=== PATIENT | female | born 1945 | race Caucasian/White ===

== ENCOUNTER 2020-02-18 06:39 | Outpatient (REF) | payer MEDICARE, SELFPAY ==
[2020-02-18 07:51] LABS: Glucose Urine UA NEG (NEG); Leukocyte Esterase Urine TRACE (NEG); Nitrite Urine NEG (NEG); Specific Gravity - Urine 1.025 (1.005-1.025); Urine Blood NEG (NEG); Urine Ketones NEG (NEG); Urine Protein NEG (NEG-TRACE)
[2020-02-18 07:55] LABS: Appearance Urine CLEAR; Color Urine YELLOW
[2020-02-18 08:13] LABS: Bacteria Urine TRACE /LPF; RBC Urine 0-2 /HPF (0); Squamous Epithelial Cell Urine 1+ /LPF
== END 2020-02-18 06:40 | disposition home or self-care (01) ==
LOC: HO.LAB 06:39
PROVIDERS: PCP Internal Medicine; Visit Provider Internal Medicine
DX: N30.00 Acute cystitis without hematuria (principal)
CPT/HCPCS: 81001; 87086

== ENCOUNTER 2020-02-23 06:41 | Outpatient (REF) | payer MEDICARE, SELFPAY ==
[2020-02-23 08:20] LABS: Glucose Urine UA NEG (NEG); Leukocyte Esterase Urine 1+ (NEG); Nitrite Urine NEG (NEG); Specific Gravity - Urine 1.015 (1.005-1.025); Urine Blood NEG (NEG); Urine Ketones NEG (NEG); Urine Protein NEG (NEG-TRACE)
[2020-02-23 08:29] LABS: Color Urine YELLOW
[2020-02-23 08:30] LABS: Appearance Urine HAZY
[2020-02-23 08:53] LABS: Bacteria Urine 1+ /LPF; Mucus Urine 2+ /LPF; RBC Urine 0 /HPF (0); Renal Epithelial Cells Urine 1+ /LPF; Squamous Epithelial Cell Urine 2+ /LPF
== END 2020-02-23 06:42 | disposition home or self-care (01) ==
LOC: HO.LAB 06:41
PROVIDERS: PCP Internal Medicine; Visit Provider Internal Medicine
DX: N30.00 Acute cystitis without hematuria (principal)
CPT/HCPCS: 81001; 81003; 87086

== ENCOUNTER 2020-05-02 06:21 | Day surgery (SDC) | payer MEDICARE, SELFPAY ==
[2020-04-27 09:49] VITALS: BMI 39.1
--- NOTE | 2020-04-29 09:31 | P.CONAN_ITS ---
Documented by User: Taylor Peacock 04/29/20 09:34 HPI - Anesthesia Eval Consult details Narrative: 74yo F for Upper Endoscopy [facility], [facility] Past Medical History Medical History Elevated cholesterol Fatty liver GERD (gastroesophageal reflux disease) History of Ennis's esophagus HTN (hypertension) Hypothyroid Obesity Surgical History Surgical History History of esophagogastroduodenoscopy (EGD) History of Yan fundoplication Hx of brain surgery Hx of colonoscopy Social History Social History Smoking Status: Former smoker Use of substances other than those prescribed or required for medical reasons: No Advance Directives: No Advance Directives Information Provided: No Advance Directives on File: No Meds Allergies Allergy/AdvReac Type Severity Reaction Status Date / Time No Known Allergies Allergy Verified 04/27/20 09:47 [No Known Allergies*] Home Medications Medication Instructions Recorded Confirmed Type atorvastatin 1 tab PO DAILY 04/27/20 04/27/20 History cholecalciferol (vitamin D3) 50 mcg PO DAILY 04/27/20 04/27/20 History [Vitamin D3] levothyroxine 1 tab PO QAM 04/27/20 04/27/20 History omeprazole 1 cap PO DAILY 04/27/20 05/02/20 History ursodiol 1,000 mg PO DAILY 04/27/20 04/27/20 History valsartan-hydrochlorothiazide 1 tab PO DAILY 04/27/20 04/27/20 History Exam Exam Date and Time: April 29, 2020 0931 Height,Weight and Vital Signs: Height 5 ft 5 in Weight 106.594 kg Assessment and Plan Assessment Anesthesia Assessment: Chart Reviewed Documented by User: Oscar Ramirez 05/02/20 07:15 [facility] Past Medical History Medical History Elevated cholesterol Fatty liver GERD (gastroesophageal reflux disease) History of Ennis's esophagus HTN (hypertension) Hypothyroid Obesity Surgical History Surgical History History of esophagogastroduodenoscopy (EGD) History of Yan fundoplication Hx of brain surgery Hx of colonoscopy Social History Social History Smoking Status: Former smoker Use of substances other than those prescribed or required for medical reasons: No Advance Directives: No Advance Directives Information Provided: No Advance Directives on File: No Meds Allergies Allergy/AdvReac Type Severity Reaction Status Date / Time No Known Allergies Allergy Verified 04/27/20 09:47 [No Known Allergies*] Home Medications Medication Instructions Recorded Confirmed Type atorvastatin 1 tab PO DAILY 04/27/20 04/27/20 History cholecalciferol (vitamin D3) 50 mcg PO DAILY 04/27/20 04/27/20 History [Vitamin D3] levothyroxine 1 tab PO QAM 04/27/20 04/27/20 History omeprazole 1 cap PO DAILY 04/27/20 05/02/20 History ursodiol 1,000 mg PO DAILY 04/27/20 04/27/20 History valsartan-hydrochlorothiazide 1 tab PO DAILY 04/27/20 04/27/20 History Exam Airway Mallampati Class: II TM Dist: >3cm Neck ROM: Full Denture: Upper
[2020-05-02 06:54] VITALS: BP 140/71; PULSE 87; RESP 18; TEMP 35.9; O2SAT 98
[2020-05-02] MEDS: Lactated Ringers 1,000 ML 100 ML IVCONT (07:20)
[2020-05-02 08:09] VITALS: BP 94/41; PULSE 82; RESP 16; TEMP 37.4; O2SAT 98
--- NOTE | 2020-05-02 08:09 | PM.OP ---
Brief Operative Note Date of Service: 05/02/20 Pre-op diagnosis: Ennis's Esophagus Post-op diagnosis: other (Same. Hiatal hernia) Procedure: EGD with biopsy Surgeon: Gilberto Hernandez Anesthesia: MAC Estimated blood loss (mL): 2.0 Pathology: other (A. EG Junction at 30cm) Condition: stable Disposition: PACU
[2020-05-02 08:24] VITALS: BP 137/72; PULSE 82; RESP 16; TEMP 36.9; O2SAT 97
--- NOTE | 2020-05-02 08:46 | HO.POSTANES ---
Post Anesthesia Evaluation Post Anesthesia Evaluation Vital Signs: Vital Signs Temp Pulse Resp BP Pulse Ox 05/02/20 08:24 98.4 F 82 16 137/72 97 05/02/20 08:09 99.4 F 82 16 94/41 L 98 05/02/20 06:54 96.7 F L 87 18 140/71 H 98 Anesthesia: Monitored Mental Status: Awake Pain Control: Satisfactory Nausea/Vomiting: None Hydration: Adequate Anesthesia-Related Issues: No Anes. Related Issues
--- NOTE | 2020-05-02 09:42 | OP_ITS ---
SURGEON: Gilberto Hernandez MD INDICATIONS: The patient presents for followup of Ennis's esophagus and dysplasia. Full consent has been obtained from her for this, including risks of bleeding and perforation. PREOPERATIVE DIAGNOSIS: POSTOPERATIVE DIAGNOSIS: PROCEDURE PERFORMED: Esophagogastroduodenoscopy with biopsies. ESTIMATED BLOOD LOSS: COMPLICATIONS: ANESTHESIA: Monitored anesthesia care. ASSISTANTS: SPECIMENS: PREOPERATIVE DIAGNOSES: History of Ennis's esophagus and dysplasia. POSTOPERATIVE DIAGNOSES: History of Ennis's esophagus, dysplasia, hiatal hernia. DESCRIPTION OF PROCEDURE: The patient was placed in the left lateral decubitus position. The Olympus video gastroscope was passed in the posterior oropharynx and upper esophagus under direct vision. The scope was passed slowly into the distal esophagus. The gastroesophageal junction appeared at 30 cm. There was some slight irregularity and small, less than 1 cm, areas of probable Ennis's mucosa. There was no sign of any ulceration nor lesions. There was no esophagitis nor varices. The scope was entered into the stomach. There was a small to moderate-sized hiatal hernia. The scope was advanced to pylorus and duodenum was cannulated to the descending portion. The duodenum including the bulb appeared normal without mass or ulceration. Scope was withdrawn back in the stomach. The gastric antrum and body appeared normal with good peristalsis. The scope was retroflexed visualizing the proximal stomach carefully, which appeared normal, without any sign of mass, ulceration, nor varices. The scope was straightened. The scope was withdrawn back into the esophagus. Multiple biopsies were obtained at the EG junction at 30 cm. Proximal to this, the esophageal mucosa appeared normal. The scope was withdrawn from the patient. She has tolerated the procedure well and was returned to recovery area in stable condition. IMPRESSION: 1. History of Ennis's esophagus, rule out dysplasia. 2. Hiatal hernia. PLAN: The results of the biopsies will be checked. She will continue her daily omeprazole. Assuming there is no dysplasia, I would then recommend a repeat upper endoscopy in 2021 when she has her next surveillance colonoscopy. She was advised to see me in 6 months for followup of her liver disease at which point she would need a followup liver ultrasound and alpha-fetoprotein level. MD LUCIE Ponce/REED / [id number] [facility]INICSaurabh
== END 2020-05-02 08:52 | disposition home or self-care (01) ==
PROVIDERS: PCP Internal Medicine; Visit Provider Internal Medicine
PROC: 0DJ08ZZ Inspection of Upper Intestinal Tract, Via Natural or Artificial Opening Endoscopic (ICD-10-PCS; CPT 43235; principal; 2020-05-02 07:30)
DX: K22.70 Barrett's esophagus without dysplasia (principal); K20.90 Esophagitis, unspecified without bleeding; K44.9 Diaphragmatic hernia without obstruction or gangrene; Z79.899 Other long term (current) drug therapy
CPT/HCPCS: 43239; 88305

== ENCOUNTER 2020-05-09 06:20 | Outpatient (REF) | payer MEDICARE, SELFPAY ==
[2020-05-09 07:31] LABS: Estimated Average Glucose 108 mg/dL; Hemoglobin A1c % 5.4 %
[2020-05-09 07:42] LABS: Alanine Aminotransferase 16 U/L (0-31); Albumin Level 4.1 g/dL (3.5-5.0); Alkaline Phosphatase 67 U/L (39-117); Aspartate Amino Transferase 23 U/L (5-31); Bilirubin Direct 0.4 mg/dL (0.0-0.5); Bilirubin Total 0.8 mg/dL (0.0-1.0); Cholesterol 102 mg/dL; Glucose Fasting 147 mg/dL (60-99); HDL Cholesterol 38 mg/dL; LDL Cholesterol Calculated 46 mg/dl; Triglycerides 90 mg/dL
[2020-05-09 08:00] LABS: Reflex LDLD? No
== END 2020-05-09 06:21 | disposition home or self-care (01) ==
LOC: HO.LAB 06:20
PROVIDERS: PCP Internal Medicine; Visit Provider Internal Medicine
DX: E78.6 Lipoprotein deficiency (principal); I10 Essential (primary) hypertension; E03.9 Hypothyroidism, unspecified; R73.09 Other abnormal glucose; E78.00 Pure hypercholesterolemia, unspecified
CPT/HCPCS: 80061; 80076; 82947; 83036; 84443

== ENCOUNTER 2020-11-08 10:14 | Outpatient (REF) | payer MEDICARE, SELFPAY ==
[2020-11-08 10:18] LABS: MANUAL DIFF FLAG NO
[2020-11-08 10:38] LABS: Basophils Percent Auto 0.4 % (0-2); Eosinophils Absolute Auto 0.2 X10*3/uL (0.0-0.4); Eosinophils Percent Auto 3.1 % (0-4); Hematocrit 35.6 % (37-47); Hemoglobin 11.1 g/dl (12.0-16.0); Imm Gran Abs Auto 0.01 X10*3/uL (0.00-0.03); Imm Gran Pct Auto 0.2 % (0.0-0.4); Lymphocytes Absolute Auto 1.7 X10*3/uL (1.2-4.9); Lymphocytes Percent Auto 33.9 % (20-40); Mean Corpuscular HGB Conc 31.2 g/dl (31.0-35.0); Mean Corpuscular Hemoglobin 24.2 pg (27.0-33.0); Mean Corpuscular Volume 77.6 fL (80-98); Mean Platelet Volume 11.8 fL (9.4-12.3); Monocytes Absolute Auto 0.5 X10*3/uL (0.1-1.2); Monocytes Percent Auto 9.7 % (2-11); Neutrophils Absolute Auto 2.6 X10*3/uL (2.0-8.3); Neutrophils Percent Auto 52.7 % (45-73); Platelet Count 116 X10*3/uL (160-400); Red Blood Count 4.59 X10*6/uL (4.20-5.50); Red Cell Distribution Width 15.1 % (11.0-16.0); White Blood Count 4.9 X10*3/uL (4.8-10.8)
[2020-11-08 11:15] LABS: Alanine Aminotransferase 15 U/L (0-31); Albumin Level 4.1 g/dL (3.5-5.0); Alkaline Phosphatase 66 U/L (39-117); Anion Gap 12 (12-20); Aspartate Amino Transferase 25 U/L (5-31); Bilirubin Total 0.8 mg/dL (0.0-1.0); Blood Urea Nitrogen 16 mg/dL (9-16); Calcium 9.6 mg/dL (8.4-10.2); Carbon Dioxide 25 mmol/L (22-29); Chloride 105 mmol/L (96-108); Cholesterol 120 mg/dL; Estimated Glomerular Filt Rate > 60; Glucose Fasting 131 mg/dL (60-99); HDL Cholesterol 44 mg/dL; LDL Cholesterol Calculated 57 mg/dl; Potassium 3.8 mmol/L (3.3-5.1); Sodium 138 mmol/L (135-145); Total Protein 6.8 g/dL (6.5-8.0); Triglycerides 99 mg/dL
[2020-11-08 11:23] LABS: Estimated Average Glucose 117 mg/dL; Hemoglobin A1C 108.6106 umol/L; Hemoglobin A1c % 5.7 %
[2020-11-08 11:37] LABS: Creatinine Urine 277.55 mg/dL; Microalbum/Creatinine Ratio Ur 7.2 ug/mg cr
[2020-11-08 11:38] LABS: TSH reflex Free T4 6.19 uIU/mL (0.32-4.0)
[2020-11-08 11:49] LABS: Reflex LDLD? No
[2020-11-08 12:20] LABS: Free T4 (Free Thyroxine) 0.91 ng/dL (0.71-1.85)
== END 2020-11-08 10:15 | disposition home or self-care (01) ==
LOC: HO.LNP 10:14
PROVIDERS: Visit Provider Internal Medicine
DX: Z00.00 Encounter for general adult medical examination without abnormal findings (principal); E55.9 Vitamin D deficiency, unspecified; I10 Essential (primary) hypertension; E03.9 Hypothyroidism, unspecified; R73.09 Other abnormal glucose; E78.00 Pure hypercholesterolemia, unspecified
CPT/HCPCS: 80053; 80061; 82043; 82306; 83036; 84439; 84443; 85025

== ENCOUNTER → 2021-01-06 08:10 | Outpatient (REF) | payer MEDICARE, SELFPAY ==
--- NOTE | 2021-01-06 08:30 | CA_ITS ---
Transthoracic Echocardiogram Patient (Last, First, Middle): Mary Lou Celestin S Gender: Female Date of : 1945 Age: 75 Procedure Date: 01/06/2021 Procedure Type: Transthoracic Echocardiogram Location: OP Height: 162.56 cm Weight: 99.79 kg BSA: 2.04 m2 Heart Rate: bpm BP: 132 / 70 mmHg Switch House Operator: Sonido MD: Christian Lewis MD [employer] Moulder'S Assistant: Emil Loza MD Symptoms: I35.0 MODERATE Study Quality: Good ECG Rhythm: Sinus Conclusions: - 1. Normal LV systolic function with mild LVH with impaired relaxation filling pattern 2. Mild to moderate aortic stenosis next 3. Severe mitral annular calcification 4. No gross pericardial effusion Findings Left Ventricle Normal left ventricular size and systolic function. There is mildly increased left ventricular wall thickness. The visually estimated ejection fraction is between 60-65%. Spectral Doppler is indicative of an impaired relaxation filling pattern. E/E prime ratio is between 8 and 15 consistent with indeterminate filling pressures. Right Ventricle Normal right ventricular cavity size and systolic function. Atria The left atrium is likely dilated. There is no evidence of interatrial shunt. The right atrium is normal in size. Aortic Valve There is moderate calcification of the aortic valve. There is mild thickening of the aortic valve. There is mild to moderate aortic valve stenosis. The peak aortic gradient is 40 mmHg.The mean gradient is 23 mmHg. The aortic valve area is 1.53 cm2. There is no aortic valve regurgitation. Mitral Valve There is mild anterior and severe posterior mitral leaflet thickening. There is severe mitral annular calcification. There is trace mitral valve regurgitation. There is no mitral valve stenosis. Pulmonic Valve The pulmonic valve was not well visualized. Tricuspid Valve Normal tricuspid valve structure. Tricuspid regurgitation envelope is inadequate for calculation of right ventricular systolic pressure. Great Vessels All visible segments of the aorta are normal in size. The pulmonary artery was not well visualized. Venous The inferior vena cava is normal in size and collapses greater than 50% with inspiration. Pericardium/Pleural There is no evidence of pericardial effusion. Prior Study Comparison No significant change compared to prior study dated: 11/27/2019. Measurements 2D Linear Measurements RVIDd: 2.89 RVIDd Index: 1.42 IVSd: 1.22 0.6-0.9/0.6-1.0 cm LVIDd: 4.17 3.9-5.3/4.2-5.9 cm LVIDd Index: 2.04 2.4-3.2/2.2-3.1 cm/m2 LVIDs: 2.49 2.0-3.6 cm LVPWd: 1.39 0.7-1.1 cm Ao Root: 3.40 2.1-3.5 cm LA Diam: 3.60 2.7-3.8/3.0-4.0 cm LAIDs Index: 1.76 1.5-2.3 cm/m2 LV Mass: 248.72 67-162/88-224 g LV Mass Index: 121.92 43-95/49-115 g/m2 LVOT Diam: 2.40 3.0+(-)1.3 cm 2D Systolic Function EF 4C: 64.50 >55% EF 2C: 50.70 >55% EF BiP: 58.50 >55% Mitral Valve MV Pk E: 1.07 MV PK A: 1.66 MV Decel Time: 165.00 E/A: 0.60 E'Lateral: 5.55 E'Medial: 5.00 E/E' Med: 21.40 E/E' Lat: 19.30 PHT: 85.00 MVA PHT: 2.59 Decel George: 3.75 Aortic Valve AoV Pk Wilian: 3.18 AoV Mn Wilian: 2.27 AoV VTI: 0.76 AoV Pk Grad: 40.00 Aov Mn Grad: 23.00 KATIE Cont.VTI: 1.53 LVOT LVOT Pk Wilian: 1.04 LVOT Mn Wilian: 0.77 LVOT VTI: 0.26 LVOT Pk Grad: 4.00 LVOT Mn Grad: 3.00 LVOT Diam: 2.40 LVOT Area: 4.52 Diastolic Function MV Pk E: 1.07 MV Pk A: 1.66 E/A: 0.60 E'Medial: 5.00 E/E' Med: 21.40 E' Laterial: 5.55 E/E' Lat: 19.30 Tricuspid Valve RA Press: 3.00 Great Vessels Aorta Ao Root-2D: 3.40 2.0-3.7 cm Ao Asc: 3.40 2.1-3.4 cm Ao Arch: 3.40 Updated in Other Vendor System with Status of Final Emil Loza MD electronically signed on 01/06/2021 4:06:34 PM with status of Final
== END ==
LOC: HO.CARD 08:10
PROVIDERS: PCP Internal Medicine; Visit Provider Internal Medicine
DX: I35.0 Nonrheumatic aortic (valve) stenosis (principal)
CPT/HCPCS: 93306

== ENCOUNTER 2021-02-08 08:00 | Outpatient (REF) | payer MEDICARE, SELFPAY ==
--- NOTE | ~2021-02-08 | MM_ITS ---
EXAMINATION: MM SCREENING DIGITAL BREAST TOMOSYNTHESIS, BILATERAL CLINICAL INFORMATION: Screening. Asymptomatic. The lifetime risk of breast cancer based on the Tyrer-Cuzick Model is 3.0%. COMPARISON: Mammography: February 03, 2020 and studies dating back to December 26, 2015 TECHNIQUE: Digital breast tomosynthesis is performed in both the craniocaudal and mediolateral oblique views along with computer-aided detection (CAD). Synthesized 2D images are generated from the tomosynthesis. FINDINGS: The breasts are almost entirely fatty (ACR BI-RADS breast composition Category a). There are no significant masses, abnormal calcifications, or other abnormalities. MM/MM tomosynthesis screening BI IMPRESSION: There are no significant changes from prior study. ASSESSMENT: BI-RADS 1: Negative RECOMMENDATION: Routine annual mammography screening. This patient's information was entered into a reminder system with a target due date for their next mammogram.
== END 2021-02-08 08:01 | disposition home or self-care (01) ==
LOC: HO.MAMMO 08:00
PROVIDERS: Visit Provider Internal Medicine
DX: Z12.31 Encounter for screening mammogram for malignant neoplasm of breast (principal)
CPT/HCPCS: 77063; 77067

== ENCOUNTER 2021-02-16 10:24 | Outpatient (REF) | payer MEDICARE, SELFPAY ==
[2021-02-16 10:26] LABS: MANUAL DIFF FLAG NO
[2021-02-16 10:39] LABS: Basophils Percent Auto 0.7 % (0-2); Eosinophils Absolute Auto 0.1 X10*3/uL (0.0-0.4); Eosinophils Percent Auto 3.2 % (0-4); Hematocrit 33.7 % (37-47); Hemoglobin 10.3 g/dl (12.0-16.0); Imm Gran Abs Auto 0.01 X10*3/uL (0.00-0.03); Imm Gran Pct Auto 0.2 % (0.0-0.4); Lymphocytes Absolute Auto 1.7 X10*3/uL (1.2-4.9); Lymphocytes Percent Auto 41.2 % (20-40); Mean Corpuscular HGB Conc 30.6 g/dl (31.0-35.0); Mean Corpuscular Hemoglobin 23.6 pg (27.0-33.0); Mean Corpuscular Volume 77.3 fL (80-98); Mean Platelet Volume 11.7 fL (9.4-12.3); Monocytes Absolute Auto 0.4 X10*3/uL (0.1-1.2); Monocytes Percent Auto 9.9 % (2-11); Neutrophils Absolute Auto 1.8 X10*3/uL (2.0-8.3); Neutrophils Percent Auto 44.8 % (45-73); Platelet Count 117 X10*3/uL (160-400); Red Blood Count 4.36 X10*6/uL (4.20-5.50); White Blood Count 4.1 X10*3/uL (4.8-10.8)
[2021-02-16 10:54] LABS: Iron 40 mcg/dL (30-160); Percent Iron Saturation 10 % (15-50); Total Iron Binding Capacity 420 mcg/dL (228-428); Unsaturated Iron Binding 380 ug/dL
[2021-02-16 11:14] LABS: TSH reflex Free T4 3.32 uIU/mL (0.32-4.0)
== END 2021-02-16 10:25 | disposition home or self-care (01) ==
LOC: HO.LNP 10:24
PROVIDERS: Visit Provider Internal Medicine
DX: D64.9 Anemia, unspecified (principal); E03.9 Hypothyroidism, unspecified
CPT/HCPCS: 83540; 84443; 85025

== ENCOUNTER 2021-04-03 06:56 | Outpatient (REF) | payer MEDICARE, SELFPAY ==
--- NOTE | ~2021-04-03 | US_ITS ---
EXAMINATION: US ABDOMEN COMPLETE CLINICAL INFORMATION: Cirrhosis of liver. COMPARISON: MR abdomen without and with contrast dated 10/22/2019. Ultrasound abdomen complete dated 09/16/2019 and 04/16/2018. TECHNIQUE: Real-time imaging of the abdominal viscera. FINDINGS: PANCREAS: Normal. ABDOMINAL AORTA: The proximal, mid, and distal segments are normal in caliber. INFERIOR VENA CAVA: Visualized portions are normal. LIVER: Liver echotexture is increased slightly heterogeneous. The liver is enlarged, right lobe measuring 22 cm in length. The liver contour is normal. No focal hepatic lesion. There is no intrahepatic biliary duct dilatation seen. GALLBLADDER: The gallbladder is upper normal in size. No gallstones are seen. The gallbladder wall is normal. COMMON BILE DUCT: Normal in caliber measuring 0.47 cm in diameter. RIGHT KIDNEY: Normal. No hydronephrosis. No renal calculi or focal parenchymal lesions. The kidney measures 10.0 cm in maximum dimension. LEFT KIDNEY: Normal. No hydronephrosis. No renal calculi or focal parenchymal lesions. The kidney measures 9.5 cm in maximum dimension. SPLEEN: The spleen is enlarged. The spleen measures 16.0 cm in maximum dimension. FREE FLUID: None. US/US abdomen complete IMPRESSION: Slightly enlarged echogenic heterogeneous liver suggestive of hepatocellular disease. No focal liver lesion seen. Upper normal-size gallbladder. No gallstones. Enlarged spleen.
[2021-04-03 07:29] LABS: INTERNATIONAL NORM RATIO 1.1 (0.9-1.1); Prothrombin Time 12.2 SEC (9.9-13.0)
[2021-04-03 08:02] LABS: Alanine Aminotransferase 26 U/L (0-31); Albumin Level 4.1 g/dL (3.5-5.0); Alkaline Phosphatase 72 U/L (39-117); Aspartate Amino Transferase 36 U/L (5-31); Bilirubin Direct 0.3 mg/dL (0.0-0.5); Bilirubin Total 0.7 mg/dL (0.0-1.0); Total Protein 6.8 g/dL (6.5-8.0)
[2021-04-04 13:02] LABS: Alpha Fetoprotein 10.3 ng/mL
== END 2021-04-03 06:57 | disposition home or self-care (01) ==
LOC: HO.US 06:56
PROVIDERS: PCP Internal Medicine; Visit Provider Internal Medicine
DX: K74.69 Other cirrhosis of liver (principal); D50.9 Iron deficiency anemia, unspecified
CPT/HCPCS: 36415; 76700; 80076; 82105; 85610

== ENCOUNTER 2021-04-19 06:15 | Day surgery (SDC) | payer MEDICARE, SELFPAY ==
[2021-04-11 15:25] VITALS: BMI 37.8
--- NOTE | 2021-04-18 09:52 | P.CONAN_ITS ---
Documented by User: Taylor Peacock NP 04/18/21 09:55 HPI - Anesthesia Eval Consult details Narrative: 75yo F for Upper Endoscopy and Colonoscopy [facility] Past Medical History Medical History Elevated cholesterol Fatty liver GERD (gastroesophageal reflux disease) History of Ennis's esophagus HTN (hypertension) Hypothyroid Obesity Surgical History Surgical History History of esophagogastroduodenoscopy (EGD) History of Yna fundoplication Hx of brain surgery Hx of colonoscopy Social History Social History Patient Tobacco Use Status: Never used Tobacco Second Hand Smoke Exposure: No Use of substances other than those prescribed or required for medical reasons: No Are you DNR?: No Advance Directives: No Advance Directives Information Provided: Yes Advance Directives on File: No Meds Allergies Allergy/AdvReac Type Severity Reaction Status Date / Time No Known Allergies Allergy Verified 04/27/20 09:47 [No Known Allergies*] Home Medications Medication Instructions Recorded Confirmed Last Taken Type atorvastatin 20 mg tablet 1 tab PO DAILY 04/27/20 04/27/20 Unknown History cholecalciferol (vitamin D3) 50 50 mcg PO DAILY 04/27/20 04/27/20 Unknown H istory mcg (2,000 unit) capsule (Vitamin D3) levothyroxine 100 mcg tablet 1 tab PO QAM 04/27/20 04/27/20 Unknown History omeprazole 40 mg capsule,delayed 1 cap PO DAILY 04/27/20 05/02/20 05/02/20 05:30 History release ursodiol 500 mg tablet 1,000 mg PO DAILY 04/27/20 04/27/20 Unknown History valsartan 160 1 tab PO DAILY 04/27/20 04/27/20 Unknown History mg-hydrochlorothiazide 12.5 mg tablet Exam Exam Date and Time: April 18, 202152 Height,Weight and Vital Signs: Height 5 ft 5.25 in Weight 103.873 kg Pertinent Lab Results Pertinent Lab Results: Laboratory Tests 11/08/20 02/16/21 07:10 07:30 WBC 4.1 L Hgb 10.3 L Hct 33.7 L Plt Count 117 L Sodium 138 Potassium 3.8 Chloride 105 Carbon Dioxide 25 BUN 16 Creatinine 0.86 Assessment and Plan Assessment Anesthesia Assessment: Chart Reviewed Documented by User: Ember Hall MD 04/19/21 07:10 [facility] Past Medical History Medical History Elevated cholesterol Fatty liver GERD (gastroesophageal reflux disease) History of Ennis's esophagus HTN (hypertension) Hypothyroid Obesity Family History Family history of problems with anesthesia: No Surgical History Surgical History History of esophagogastroduodenoscopy (EGD) History of Yan fundoplication Hx of brain surgery Hx of colonoscopy History of Problems with Anesthesia: No Social History Social History Patient Tobacco Use Status: Never used Tobacco Second Hand Smoke Exposure: No Use of substances other than those prescribed or required for medical reasons: No Are you DNR?: No Advance Directives: No Advance Directives Information Provided: Yes Advance Directives on File: No Meds Allergies Allergy/AdvReac Type Severity Reaction Status Date / Time No Known Allergies Allergy Verified 04/27/20 09:47 [No Known Allergies*] Home Medications Medication Instructions Recorded Confirmed Last Taken Type atorvastatin 20 mg tablet 1 tab PO DAILY 04/27/20 04/27/20 Unknown History cholecalciferol (vitamin D3) 50 50 mcg PO DAILY 04/27/20 04/27/20 Unknown History mcg (2,000 unit) capsule (Vitamin D3) levothyroxine 100 mcg tablet 1 tab PO QAM 04/27/20 04/27/20 Unknown History omeprazole 40 mg capsule,delayed 1 cap PO DAILY 04/27/20 05/02/20 05/02/20 05:30 History release ursodiol 500 mg tablet 1,000 mg PO DAILY 04/27/20 04/27/20 Unknown History valsartan 160 1 tab PO DAILY 04/27/20 04/27/20 Unknown History mg-hydrochlorothiazide 12.5 mg tablet Exam Airway Mallampati Class: II TM Dist: >3cm Neck ROM: Full Denture: Upper Heart: rrr Lungs: cta Assessment and Plan Assessment Anesthesia Assessment: Anesthesia Plan Discussed and Chart Reviewed Final Anesthetic Review Family History of Problems with Anesthesia: No History of Problems with Anesthesia: No NPO: Yes ASA Class: III Final Preanesthetic Review: No Changes in Pt Med Stat, Meds/Allgs Chart Reviewed and Consent Obtained/Reviewed Patient Risk: Intermediate Procedure Risk: Intermediate Anesthetic Plan Anesthetic Plan: MAC: Disposition: Standard PACU
[2021-04-19 06:49] VITALS: BP 129/64; PULSE 90; RESP 16; TEMP 35.8; O2SAT 97
[2021-04-19] MEDS: Lactated Ringers 1,000 ML 100 ML IVCONT (07:10)
--- NOTE | 2021-04-19 08:17 | HO.ANESPROP2 ---
[facility] Past Medical History Medical History Elevated cholesterol Fatty liver GERD (gastroesophageal reflux disease) History of Ennis's esophagus HTN (hypertension) Hypothyroid Obesity Family History Family history of problems with anesthesia: No Surgical History Surgical History History of esophagogastroduodenoscopy (EGD) History of Yan fundoplication Hx of brain surgery Hx of colonoscopy History of Problems with Anesthesia: No Social History Social History Patient Tobacco Use Status: Never used Tobacco Second Hand Smoke Exposure: No Use of substances other than those prescribed or required for medical reasons: No Are you DNR?: No Advance Directives: No Advance Directives Information Provided: Yes Advance Directives on File: No Meds Allergies Allergy/AdvReac Type Severity Reaction Status Date / Time No Known Allergies Allergy Verified 04/27/20 09:47 [No Known Allergies*] Active Medications: Current Medications Lactated Ringer's (Lr) 1,000 mls @ 100 mls/hr IVCONT .Q10H DENIS Last Admin: 04/19/21 07:10 Dose: 100 mls/hr Documented by: Sodium Biphosphate/Sodium Phosphate (Sodium Phosphate,Terrell-Dibasic 133 Ml Enema) 133 ml MI ONCE PRN PRN Reason: Poor Colonoscopy Prep Results Home Medications Medication Instructions Recorded Confirmed Last Taken Type atorvastatin 20 mg tablet 1 tab PO DAILY 04/27/20 04/27/20 Unknown History cholecalciferol (vitamin D3) 50 50 mcg PO DAILY 04/27/20 04/27/20 Unknown History mcg (2,000 unit) capsule (Vitamin D3) levothyroxine 100 mcg tablet 1 tab PO QAM 04/27/20 04/27/20 Unknown History omeprazole 40 mg capsule,delayed 1 cap PO DAILY 04/27/20 05/02/20 05/02/20 05:30 History release ursodiol 500 mg tablet 1,000 mg PO DAILY 04/27/20 04/27/20 Unknown History valsartan 160 1 tab PO DAILY 04/27/20 04/27/20 Unknown History mg-hydrochlorothiazide 12.5 mg tablet Exam Exam Date and Time: April 19, 2021 0817 Height,Weight and Vital Signs: Height 5 ft 5.25 in Weight 103.873 kg Last Vital Signs Temp 96.4 F L 04/19/21 06:49 Pulse 90 04/19/21 06:49 Resp 16 04/19/21 06:49 BP 129/64 04/19/21 06:49 Pulse Ox 97 04/19/21 06:49 Airway Mallampati Class: I TM Dist: >3cm Neck ROM: Full Heart: rrr Lungs: cta Assessment and Plan Assessment Anesthesia Assessment: Anesthesia Plan Discussed and Chart Reviewed Final Anesthetic Review Family History of Problems with Anesthesia: No History of Problems with Anesthesia: No NPO: Yes ASA Class: II Final Preanesthetic Review: No Changes in Pt Med Stat, Meds/Allgs Chart Reviewed and Consent Obtained/Reviewed Patient Risk: Intermediate Procedure Risk: Intermediate Anesthetic Plan Anesthetic Plan: MAC: Disposition: Standard PACU
--- NOTE | 2021-04-19 09:02 | PM.OP ---
Brief Operative Note Date of Service: 04/19/21 Pre-op diagnosis: Anemia Post-op diagnosis: other (Gastric polyps, Duodenitis, Hiatal hernia, Colon polyps, Diverticulosis) Procedure: EGD with biopsies, Colonoscopy top the cecum and TI with bx/removal of polyp, and snare polypectomy x 6 Surgeon: Gilberto Hernandez Anesthesia: MAC Was an Milking Machine Mechanic used for this Procedure?: No Estimated blood loss (mL): 3.0 Pathology: other (A. Descending duodenum B. Gastric antrum C. Polyp at 20cm D. Ascending colon polyps opposite ICV E. Transverse colon polyp F. Polyps between 50-60cm) Condition: stable Disposition: PACU
[2021-04-19 09:05] VITALS: BP 87/39; PULSE 83; RESP 12; TEMP 36.1; O2SAT 95
[2021-04-19 09:20] VITALS: BP 122/69; PULSE 78; RESP 17; TEMP 36.1; O2SAT 96
--- NOTE | 2021-04-20 02:38 | OP_ITS ---
SURGEON: Gilberto Hernandez MD INDICATIONS: The patient presents for evaluation of iron-deficiency anemia. Full consent has been obtained from her for this, including risks of bleeding and perforation. PREOPERATIVE DIAGNOSIS: Iron-deficiency anemia. POSTOPERATIVE DIAGNOSIS: PROCEDURE PERFORMED: Esophagogastroduodenoscopy with biopsies, and colonoscopy to the cecum and terminal ileum with snare polypectomy, and biopsy and removal of polyp. ESTIMATED BLOOD LOSS: COMPLICATIONS: ANESTHESIA: Monitored anesthesia care. ASSISTANTS: SPECIMENS: POSTOPERATIVE DIAGNOSES: Iron-deficiency anemia, duodenitis, gastric polyps, hiatal hernia, Ennis's esophagus, colon polyps, diverticulosis, and internal hemorrhoids. DESCRIPTION OF PROCEDURE: The patient was placed in the left lateral decubitus position. The Olympus video gastroscope was passed in the posterior oropharynx and upper esophagus under direct vision. The scope was passed slowly to the distal esophagus. The gastroesophageal junction appeared at 30 cm. There were small less than 1 cm areas of her known Ennis's mucosa. There was no sign of any ulceration nor any lesions. There was no esophagitis nor varices. The scope entered into the stomach. There was a small to moderate-sized hiatal hernia. There were some proximal gastric polyps, but the remainder of the proximal gastric mucosa and the mucosa within the hiatal hernia appeared normal. The scope was advanced to pylorus and the duodenum was cannulated to the descending portion. The duodenum including the bulb was carefully inspected. In the descending duodenum, were multiple areas of erosive duodenitis with friability and areas of erosions on the duodenal folds. There were no ulcers nor masses. Biopsies were obtained from the descending duodenum. Scope was withdrawn back in the stomach. Gastric antrum and body had some areas of erythema and edema, as well as 1 approximately 5 or 6 mm inflammatory gastric polyp, which was somewhat friable when irrigated with water. The scope was retroflexed visualizing the proximal stomach carefully, which revealed multiple hyperplastic appearing gastric polyps, but no sign of any ulceration nor mass. The scope was straightened. Biopsies were obtained from the gastric antrum. I opted not to remove the inflammatory gastric polyp given its gross appearance and some friability. The scope was withdrawn back into the esophagus. Proximal to the EG junction, the esophageal mucosa appeared normal. The scope was withdrawn from the patient. Of note, biopsies were not obtained from the Ennis's esophagus as that had been done in April,. She was turned around for colonoscopy. The digital rectal exam revealed no abnormalities. The Olympus video pediatric colonoscope was entered into the rectum and advanced easily to the cecum. Once in the cecum, I did identify normal-appearing cecal pouch with appendiceal orifice and a normal-appearing ileocecal valve. The terminal ileum was cannulated and appeared normal. Scope was withdrawn back in the colon. The entire cecum and ileocecal valve appeared normal. The scope was then slowly withdrawn assessing all mucosal surfaces carefully. Preparation was excellent. In the proximal ascending colon, opposite to the ileocecal valve, was an approximately 10 x 15 mm polypoid lesion, which was somewhat raised and grossly adenomatous.. There was no ulceration nor mass. This was removed in piecemeal fashion with a hot snare polypectomy. Multiple pieces were recovered by suction. Post-polypectomy, there did not appear to be any definitive residual polyp nor any bleeding. In the same vicinity, was an approximately 6 to 8 mm polyp, which was also snared and recovered by suction. The polypectomy site appeared clean, without any sign of residual polyp nor bleeding. In the transverse colon, was an approximately 10 to 12 mm polyp, which was snared in piecemeal fashion and recovered by suction. The polypectomy site appeared clean, without any sign of residual polyp nor bleeding. Between 40 and 50 cm, were several approximately 6 mm grossly adenomatous polyps, which were all snared and recovered by suction. All the polypectomy sites appeared clean, without any sign of residual polyp nor bleeding. These were all done with a hot snare. At 20 cm, was an approximately 4 mm polyp, which was biopsied and completely removed with cold biopsy forceps. I did not visualize any other polyps, colitis, nor angiodysplasia. There was a mild to moderate amount of sigmoid diverticulosis. In the rectum, scope was retroflexed visualizing internal hemorrhoids, but no other pathology. The rectal mucosa appeared normal. The scope was straightened out and withdrawn from the patient. She tolerated both procedures well and was returned to recovery area in stable condition. IMPRESSION: 1. Erosive duodenitis. 2. Gastric polyps. 3. Gastritis. 4. Hiatal hernia. 5. History of Ennis's esophagus. 6. Colon polyps. 7. Diverticulosis. 8. Internal hemorrhoids. PLAN: The results of the pathology will be checked. Given the presence of the larger ascending colon polyp, I would recommend a repeat colonoscopy in 1 year for further follow up screening and surveillance. She was advised not to use any aspirin or NSAIDs long-term in light of the upper endoscopy findings and her anemia. She has been using omeprazole 40 mg daily and I shall increase this to b.i.d. given the upper endoscopy findings. She was advised to resume her iron in regard to the anemia. Her blood count will be followed. She was advised to stay off all aspirin and NSAIDs long-term. She was advised to see me in 2 to 3 months for a followup visit. MD LUCIE Ponce/REED / [id number] MTDD
== END 2021-04-19 10:25 | disposition home or self-care (01) ==
PROVIDERS: PCP Internal Medicine; Visit Provider Internal Medicine
PROC: (CPT 45385; principal; 2021-04-19 07:30)
DX: D50.9 Iron deficiency anemia, unspecified (principal); Z86.010 Personal history of colon polyps; D12.2 Benign neoplasm of ascending colon; D12.3 Benign neoplasm of transverse colon; D12.5 Benign neoplasm of sigmoid colon; K57.30 Diverticulosis of large intestine without perforation or abscess without bleeding; K64.8 Other hemorrhoids; K22.70 Barrett's esophagus without dysplasia; K29.80 Duodenitis without bleeding; K31.7 Polyp of stomach and duodenum; K44.9 Diaphragmatic hernia without obstruction or gangrene; K21.9 Gastro-esophageal reflux disease without esophagitis; K74.69 Other cirrhosis of liver; K74.00 Hepatic fibrosis, unspecified; K76.0 Fatty (change of) liver, not elsewhere classified; I10 Essential (primary) hypertension; E03.9 Hypothyroidism, unspecified; Z79.899 Other long term (current) drug therapy; Z87.891 Personal history of nicotine dependence
CPT/HCPCS: 45385; 45380; 43239; 88305; 88342

== ENCOUNTER 2021-04-25 10:33 | Outpatient (REF) | payer MEDICARE, SELFPAY ==
[2021-04-25 11:15] LABS: Iron 75 mcg/dL (30-160); Percent Iron Saturation 19 % (15-50); Total Iron Binding Capacity 394 mcg/dL (228-428); Unsaturated Iron Binding 319 ug/dL
== END 2021-04-25 10:34 | disposition home or self-care (01) ==
LOC: HO.LNP 10:33
PROVIDERS: Visit Provider Internal Medicine
DX: D64.9 Anemia, unspecified (principal); E61.1 Iron deficiency; D72.820 Lymphocytosis (symptomatic)
CPT/HCPCS: 83540

== ENCOUNTER → 2021-06-27 09:11 | Outpatient (REF) | payer MEDICARE, SELFPAY ==
--- NOTE | 2021-06-27 09:30 | CA_ITS ---
Transthoracic Echocardiogram Patient (Last, First, Middle): Mary Lou Celestin S Gender: Female Date of : 1945 Age: 75 Procedure Date: 06/27/2021 Procedure Type: Transthoracic Echocardiogram Location: OP Height: 165.1 cm Weight: 99.79 kg BSA: 2.06 m2 Heart Rate: bpm BP: 130 / 84 mmHg Order Packer: [id number] Referring MD: Christian Lewis MD Symptoms: R73.09 PRE DIABETES Study Quality: Fair ECG Rhythm: Sinus Conclusions: - The left ventricular systolic function is normal. The calculated ejection fraction is 59% by biplane method. - There is mild to moderate aortic valve stenosis. - There is moderate mitral annular calcification. Findings Left Ventricle Normal left ventricular cavity size. There is mildly increased left ventricular wall thickness. The left ventricular systolic function is normal. The calculated ejection fraction is 59% by biplane method. There is no evidence of regional wall motion abnormalities. E/E prime ratio is >15, consistent with elevated filling pressures. Evidence suggests grade I (mild) diastolic dysfunction. There is moderate septal asymmetric hypertrophy. Right Ventricle Normal right ventricular cavity size and systolic function. Atria The left atrium is moderately dilated. The right atrium is normal in size. Aortic Valve There is moderate calcification of the aortic valve. There is mild to moderate aortic valve stenosis. The mean gradient is 24 mmHg. The aortic valve area is 1.50 cm2. There is no aortic valve regurgitation. Dimensionless index 0.35. Mitral Valve There is moderate mitral annular calcification. There is trace mitral valve regurgitation. There is no mitral valve stenosis. Pulmonic Valve The pulmonic valve was not well visualized. Tricuspid Valve There is trace tricuspid valve regurgitation. The pulmonary artery systolic pressure is normal. Great Vessels The aortic annulus, sinuses of valsalva, and asc aorta are normal in size. Venous The inferior vena cava was not well visualized. The inferior vena cava is normal in size. Pericardium/Pleural There is no evidence of pericardial effusion. Prior Study Comparison No significant change compared to prior study dated: 01/06/2021. Measurements 2D Linear Measurements IVSd: 1.38 0.6-0.9/0.6-1.0 cm LVIDd: 3.98 3.9-5.3/4.2-5.9 cm LVIDd Index: 1.93 2.4-3.2/2.2-3.1 cm/m2 LVIDs: 2.86 2.0-3.6 cm LVPWd: 1.26 0.7-1.1 cm Ao Root: 3.80 2.1-3.5 cm LA Diam: 3.60 2.7-3.8/3.0-4.0 cm LAIDs Index: 1.75 1.5-2.3 cm/m2 LV Mass: 236.16 67-162/88-224 g LV Mass Index: 114.64 43-95/49-115 g/m2 LVOT Diam: 2.30 3.0+(-)1.3 cm 2D Systolic Function EF 4C: 59.20 >55% EF 2C: 58.80 >55% EF BiP: 58.80 >55% Mitral Valve MV Pk E: 0.81 MV PK A: 1.58 MV Decel Time: 181.00 E/A: 0.50 E'Lateral: 4.68 E'Medial: 3.92 E/E' Med: 20.60 E/E' Lat: 17.30 PHT: 53.00 MVA PHT: 4.15 Decel Moffat: 4.46 Aortic Valve AoV Pk Wilian: 3.14 AoV Mn Wilian: 2.35 AoV VTI: 0.69 AoV Pk Grad: 39.00 Aov Mn Grad: 24.00 KATIE Cont.VTI: 1.50 LVOT LVOT Pk Wilian: 1.09 LVOT Mn Wilian: 0.83 LVOT VTI: 0.25 LVOT Pk Grad: 5.00 LVOT Mn Grad: 3.00 LVOT Diam: 2.30 LVOT Area: 4.15 Diastolic Function MV Pk E: 0.81 MV Pk A: 1.58 E/A: 0.50 E'Medial: 3.92 E/E' Med: 20.60 E' Laterial: 4.68 E/E' Lat: 17.30 Tricuspid Valve TR Pk Wilian: 1.10 TR Pk Grad: 5.00 RA Press: 3.00 RVSP: 8.00 Great Vessels Aorta Ao Root-2D: 3.80 2.0-3.7 cm Ao Asc: 3.50 2.1-3.4 cm Ao Arch: 3.20 Updated in Other Vendor System with Status of Final Julian Henao MD electronically signed on 06/28/2021 8:40:12 AM with status of Final
== END ==
LOC: HO.CARD 09:11
PROVIDERS: PCP Internal Medicine; Visit Provider Internal Medicine
DX: R73.03 Prediabetes (principal); I35.0 Nonrheumatic aortic (valve) stenosis; I34.8 Other nonrheumatic mitral valve disorders
CPT/HCPCS: 93306

== ENCOUNTER 2021-08-08 10:36 | Outpatient (REF) | payer MEDICARE, SELFPAY ==
[2021-08-08 10:51] LABS: MANUAL DIFF FLAG NO
[2021-08-08 12:05] LABS: Basophils Percent Auto 0.4 % (0-2); Eosinophils Absolute Auto 0.1 X10*3/uL (0.0-0.4); Eosinophils Percent Auto 2.6 % (0-4); Hematocrit 37.7 % (37.0-47.0); Hemoglobin 12.7 g/dl (12.0-16.0); Imm Gran Abs Auto 0.01 X10*3/uL (0.00-0.03); Imm Gran Pct Auto 0.2 % (0.0-0.4); Lymphocytes Absolute Auto 1.5 X10*3/uL (1.2-4.9); Lymphocytes Percent Auto 29.5 % (20-40); Mean Corpuscular HGB Conc 33.7 g/dl (31.0-35.0); Mean Corpuscular Volume 86.1 fL (80.0-98.0); Mean Platelet Volume 11.3 fL (9.4-12.3); Monocytes Absolute Auto 0.5 X10*3/uL (0.1-1.2); Monocytes Percent Auto 9.3 % (2-11); Neutrophils Absolute Auto 2.9 x10*3/uL (2.0-8.3); Platelet Count 100 X10*3/uL (160-400); Red Blood Count 4.38 X10*6/uL (4.20-5.50); Red Cell Distribution Width 13.8 % (11.0-16.0); White Blood Count 5.1 X10*3/uL (4.8-10.8)
[2021-08-08 12:39] LABS: Iron 87 mcg/dL (30-160)
[2021-08-08 12:59] LABS: Ferritin 34 ng/mL (10-250)
[2021-08-08 13:29] LABS: Percent Iron Saturation 24 % (15-50); Total Iron Binding Capacity 358 mcg/dL (228-428); Unsaturated Iron Binding 271 ug/dL
== END 2021-08-08 10:37 | disposition home or self-care (01) ==
LOC: HO.LAB 10:36
PROVIDERS: PCP Internal Medicine; Visit Provider Internal Medicine
DX: D50.9 Iron deficiency anemia, unspecified (principal)
CPT/HCPCS: 36415; 82728; 83540; 85025

== ENCOUNTER 2021-11-16 10:46 | Outpatient (REF) | payer MEDICARE, SELFPAY ==
[2021-11-16 11:08] LABS: MANUAL DIFF FLAG NO
[2021-11-16 11:09] LABS: Appearance Urine CLEAR; Color Urine YELLOW; Glucose Urine UA NEG (NEG); Leukocyte Esterase Urine 2+ (NEG); Nitrite Urine NEG (NEG); PH 6.5 (5.0-8.0); Specific Gravity - Urine >= 1.030 (1.005-1.025); Urine Blood NEG (NEG); Urine Ketones NEG (NEG); Urine Protein NEG (NEG-TRACE)
[2021-11-16 11:10] LABS: Basophils Percent Auto 0.6 % (0-2); Eosinophils Absolute Auto 0.1 X10*3/uL (0.0-0.4); Eosinophils Percent Auto 2.2 % (0-4); Hematocrit 38.3 % (37.0-47.0); Imm Gran Abs Auto 0.01 X10*3/uL (0.00-0.03); Imm Gran Pct Auto 0.2 % (0.0-0.4); Lymphocytes Absolute Auto 1.8 X10*3/uL (1.2-4.9); Lymphocytes Percent Auto 35.5 % (20-40); Mean Corpuscular HGB Conc 33.9 g/dl (31.0-35.0); Mean Corpuscular Hemoglobin 28.7 pg (27.0-33.0); Mean Corpuscular Volume 84.5 fL (80.0-98.0); Mean Platelet Volume 11.6 fL (9.4-12.3); Monocytes Absolute Auto 0.4 X10*3/uL (0.1-1.2); Monocytes Percent Auto 7.6 % (2-11); Neutrophils Absolute Auto 2.7 x10*3/uL (2.0-8.3); Neutrophils Percent Auto 53.9 % (45-73); Platelet Count 100 X10*3/uL (160-400); Red Blood Count 4.53 X10*6/uL (4.20-5.50); Red Cell Distribution Width 14.2 % (11.0-16.0)
[2021-11-16 11:19] LABS: RBC Urine 0 /HPF (0)
[2021-11-16 11:20] LABS: Bacteria Urine 1+ /LPF; Squamous Epithelial Cell Urine 1+ /LPF
[2021-11-16 11:28] LABS: Estimated Average Glucose 108 mg/dL; Hemoglobin A1c % 5.4 %
[2021-11-16 11:30] LABS: Alanine Aminotransferase 14 U/L (0-31); Alkaline Phosphatase 63 U/L (39-117); Anion Gap 12 (12-20); Aspartate Amino Transferase 20 U/L (5-31); Bilirubin Total 0.8 mg/dL (0.0-1.0); Blood Urea Nitrogen 11 mg/dL (9-16); Calcium 9.4 mg/dL (8.4-10.2); Carbon Dioxide 25 mmol/L (22-29); Chloride 105 mmol/L (96-108); Cholesterol 107 mg/dL; Estimated Glomerular Filt Rate > 60; Glucose Random 127 mg/dL (60-115); HDL Cholesterol 35 mg/dL; LDL Cholesterol Calculated 49 mg/dl; Potassium 3.8 mmol/L (3.3-5.1); Sodium 138 mmol/L (135-145); Total Protein 6.6 g/dL (6.5-8.0); Triglycerides 118 mg/dL
[2021-11-16 11:50] LABS: TSH reflex Free T4 2.66 uIU/mL (0.32-4.0); Vitamin D 25-OH Total 24.9 ng/mL (>30)
[2021-11-16 12:00] LABS: Creatinine Urine 48.86 mg/dL; Microalbumin Urine < 5.0 mg/L
== END 2021-11-16 10:47 | disposition home or self-care (01) ==
LOC: HO.LNP 10:46
PROVIDERS: Visit Provider Internal Medicine
DX: Z00.00 Encounter for general adult medical examination without abnormal findings (principal); I10 Essential (primary) hypertension; E03.9 Hypothyroidism, unspecified; R73.09 Other abnormal glucose; E78.00 Pure hypercholesterolemia, unspecified; D72.820 Lymphocytosis (symptomatic); E55.9 Vitamin D deficiency, unspecified
CPT/HCPCS: 80053; 80061; 81001; 82043; 82306; 83036; 84443; 85025

== ENCOUNTER 2022-02-06 07:58 | Outpatient (REF) | payer MEDICARE, SELFPAY ==
--- NOTE | ~2022-02-06 | MM_ITS ---
EXAMINATION: BONE DENSITOMETRY CLINICAL INDICATION: Osteopenia. COMPARISON: Previous BD dated 02/03/2020 and baseline BD dated 03/29/2015. TECHNIQUE: Using a XATA DXA System (software version: 13.1) manufactured by [employer], dual-energy x-ray absorptiometry was performed of the lumbar spine and left hip. The images are of good technical quality. Summary results are attached. FINDINGS: AP SPINE L1-L4: Current: BMD 1.158 g/cm2, Z-score 0.5, T-score -0.2, normal, 3.2% increase from previous, 7.0% increase from baseline (<5% change is not significant). Prior: BMD 1.122 g/cm2. Baseline: BMD 1.082 g/cm2. LEFT FEMUR, NECK: Current: BMD 0.815 g/cm2, Z-score -0.3, T-score -1.6, osteopenia. Prior: BMD 0.881 g/cm2. Baseline: BMD 0.799 g/cm2. LEFT FEMUR, TOTAL: Current: BMD 0.904 g/cm2, Z-score 0.2, T-score -0.8, normal, 2.5% decrease from previous, 2.3% decrease from baseline (<5% change is not significant). Prior: BMD 0.927 g/cm2. Baseline: BMD 0.925 g/cm2. IDENTIFIED RISK FACTORS: Early menopause, secondary osteoporosis, hysterectomy, bilateral oophorectomy, height loss. HISTORY OF FRACTURE: None listed. MEDICATIONS: Vitamin D. MM/XR DEXA axial skeleton IMPRESSION: 1. DIAGNOSIS: Osteopenia based on the lowest T-score value of -1.6 in the femoral neck applying World Health Organization criteria. 2. 10-YEAR FRACTURE RISK PREDICTION, FRAX: Major osteoporotic fracture (clinical spine, forearm, hip or shoulder) 11.2%. Hip fracture 2.3%. 3. Treatment Recommendations: NOF guidelines recommend consideration for treatment in postmenopausal women and men age 50 and older presenting with the following: -A hip or vertebral (clinical or morphometric) fracture. -T-score less than or equal to -2.5 at the femoral neck or spine after appropriate evaluation to exclude secondary causes. -Low bone mass at the hip or spine and a 10-year fracture probability by FRAX of greater than or equal to 3% for hip fracture or greater than or equal to 20% for major osteoporotic fracture based on the [place] adapted WHO algorithm. 4. Other Recommendations: All treatment decisions require clinical judgment and consideration of individual patient factors, including patient preferences, comorbidities, previous drug use, risk factors not captured in the FRAX model (e.g. frailty, falls, vitamin D deficiency, increased bone turnover, interval significant decline in bone density) and possible under or overestimation of fracture risk by FRAX. Additional medical evaluation for secondary cause of low bone mineral density may be appropriate. FUTURE SCAN RECOMMENDATION: People with diagnosed cases of osteoporosis or at high risk for fracture should have regular bone mineral density tests. For patients eligible for Medicare, routine testing is allowed once every 2 years. The testing frequency can be increased to one year for patients who have rapidly progressing disease, those who are receiving or discontinuing medical therapy to restore bone mass, or have additional risk factors.
== END 2022-02-06 07:59 | disposition home or self-care (01) ==
LOC: HO.MAMMO 07:58
PROVIDERS: PCP Internal Medicine; Visit Provider Internal Medicine
DX: Z13.820 Encounter for screening for osteoporosis (principal); M85.88 Other specified disorders of bone density and structure, other site; Z78.0 Asymptomatic menopausal state
CPT/HCPCS: 77080

== ENCOUNTER 2022-02-12 08:16 | Outpatient (REF) | payer MEDICARE, SELFPAY ==
--- NOTE | ~2022-02-12 | MM_ITS ---
EXAMINATION: MM SCREENING DIGITAL BREAST TOMOSYNTHESIS, BILATERAL CLINICAL INFORMATION: Screening. Asymptomatic. The lifetime risk of breast cancer based on the Tyrer-Cuzick Model is 3%. COMPARISON: Mammography: 02/08/2021, 02/03/2020, 01/29/2019 TECHNIQUE: Digital breast tomosynthesis is performed in both the craniocaudal and mediolateral oblique views along with computer-aided detection (CAD). Synthesized 2D images are generated from the tomosynthesis. FINDINGS: The breasts are almost entirely fatty (ACR BI-RADS breast composition Category a). There are no significant masses, abnormal calcifications, or other abnormalities. Background stromal markings are stable. No developing density or architectural abnormality. The axilla and skin contours are unremarkable. MM/MM tomosynthesis screening BI IMPRESSION: No mammographic evidence of malignancy. ASSESSMENT: BI-RADS 1: Negative RECOMMENDATION: Routine annual mammography screening. This patient's information was entered into a reminder system with a target due date for their next mammogram.
== END 2022-02-12 08:17 | disposition home or self-care (01) ==
LOC: HO.MAMMO 08:16
PROVIDERS: PCP Internal Medicine; Visit Provider Internal Medicine
DX: Z12.31 Encounter for screening mammogram for malignant neoplasm of breast (principal)
CPT/HCPCS: 77063; 77067

== ENCOUNTER 2022-02-19 11:56 | Outpatient (REF) | payer MEDICARE, SELFPAY ==
[2022-02-19 12:41] LABS: Blood Urea Nitrogen 14 mg/dL (9-16); Estimated Glomerular Filt Rate > 60
== END 2022-02-19 11:57 | disposition home or self-care (01) ==
LOC: HO.LNP 11:56
PROVIDERS: Visit Provider Internal Medicine
DX: I10 Essential (primary) hypertension (principal)
CPT/HCPCS: 82565; 84520

== ENCOUNTER 2022-05-01 07:51 | Outpatient (REF) | payer MEDICARE, SELFPAY ==
--- NOTE | ~2022-05-01 | US_ITS ---
EXAMINATION: US ABDOMEN COMPLETE CLINICAL INFORMATION: Cirrhosis of liver. COMPARISON: Ultrasound abdomen complete 04/03/2021 and 09/16/2019. MRI abdomen 10/22/2019. TECHNIQUE: Real-time imaging of the abdominal viscera. FINDINGS: PANCREAS: The liver is slightly echogenic but normal size. ABDOMINAL AORTA: The abdominal aorta is of normal caliber. INFERIOR VENA CAVA: Visualized portions are normal. LIVER: The liver is normal in size. The liver contour is irregular. Parenchymal echogenicity is heterogeneous and echogenic. No focal hepatic lesion. There is no intrahepatic biliary duct dilatation seen. GALLBLADDER: Normal. The gallbladder is physiologically distended without evidence of stones, sludge, polyps, wall thickening or pericholecystic fluid. COMMON BILE DUCT: Normal in caliber measuring 0.6 cm in diameter. RIGHT KIDNEY: Normal. No hydronephrosis. No renal calculi or focal parenchymal lesions. The kidney measures 9.7 cm in maximum dimension. LEFT KIDNEY: Normal. No hydronephrosis. No renal calculi or focal parenchymal lesions. The kidney measures 9.8 cm in maximum dimension. SPLEEN: Mildly enlarged The spleen measures 16.9 cm in maximum dimension. FREE FLUID: None. US/US abdomen complete IMPRESSION: 1. Heterogeneous echogenic liver with irregular contour suggestive of cirrhosis. No focal lesion seen. 2. Mild splenomegaly. 3. The rest of the abdominal ultrasound is unremarkable.
[2022-05-01 08:05] LABS: MANUAL DIFF FLAG NO
[2022-05-01 08:14] LABS: Basophils Percent Auto 0.6 % (0-2); Eosinophils Absolute Auto 0.2 X10*3/uL (0.0-0.4); Eosinophils Percent Auto 2.9 % (0-4); Hematocrit 38.5 % (37.0-47.0); Hemoglobin 12.9 g/dl (12.0-16.0); Imm Gran Abs Auto 0.02 X10*3/uL (0.00-0.03); Imm Gran Pct Auto 0.4 % (0.0-0.4); Lymphocytes Percent Auto 38.4 % (20-40); Mean Corpuscular HGB Conc 33.5 g/dl (31.0-35.0); Mean Corpuscular Hemoglobin 28.1 pg (27.0-33.0); Mean Corpuscular Volume 83.9 fL (80.0-98.0); Mean Platelet Volume 11.4 fL (9.4-12.3); Monocytes Absolute Auto 0.5 X10*3/uL (0.1-1.2); Monocytes Percent Auto 10.2 % (2-11); Neutrophils Absolute Auto 2.5 x10*3/uL (2.0-8.3); Neutrophils Percent Auto 47.5 % (45-73); Platelet Count 102 X10*3/uL (160-400); Red Blood Count 4.59 X10*6/uL (4.20-5.50); Red Cell Distribution Width 13.9 % (11.0-16.0); White Blood Count 5.2 X10*3/uL (4.8-10.8)
[2022-05-01 08:16] LABS: INTERNATIONAL NORM RATIO 1.1 (0.9-1.1); Prothrombin Time 12.3 SEC (10.0-13.1)
[2022-05-01 08:58] LABS: Alanine Aminotransferase 19 U/L (0-31); Alkaline Phosphatase 65 U/L (39-117); Aspartate Amino Transferase 24 U/L (5-31); Bilirubin Direct 0.3 mg/dL (0.0-0.5); Bilirubin Total 0.8 mg/dL (0.0-1.0); Total Protein 6.5 g/dL (6.5-8.0)
[2022-05-03 13:43] LABS: Alpha Fetoprotein 7.4 ng/mL
== END 2022-05-01 07:52 | disposition home or self-care (01) ==
LOC: HO.US 07:51
PROVIDERS: PCP Internal Medicine; Visit Provider Internal Medicine
DX: K74.69 Other cirrhosis of liver (principal)
CPT/HCPCS: 36415; 76700; 80076; 82105; 85025; 85610

== ENCOUNTER 2022-05-24 10:58 | Outpatient (REF) | payer MEDICARE, SELFPAY ==
[2022-05-24 11:53] LABS: Estimated Average Glucose 103 mg/dL; Hemoglobin A1c % 5.2 %
[2022-05-24 12:07] LABS: Alanine Aminotransferase 17 U/L (0-31); Albumin Level 4.1 g/dL (3.5-5.0); Alkaline Phosphatase 65 U/L (39-117); Aspartate Amino Transferase 24 U/L (5-31); Bilirubin Direct 0.3 mg/dL (0.0-0.5); Bilirubin Total 0.8 mg/dL (0.0-1.0); Cholesterol 98 mg/dL; Glucose Fasting 117 mg/dL (60-99); HDL Cholesterol 38 mg/dL; LDL Cholesterol Calculated 42 mg/dl; Total Protein 6.7 g/dL (6.5-8.0); Triglycerides 92 mg/dL
[2022-05-24 12:39] LABS: Reflex LDLD? No
== END 2022-05-24 10:59 | disposition home or self-care (01) ==
LOC: HO.LNP 10:58
PROVIDERS: PCP Internal Medicine; Visit Provider Internal Medicine
DX: E78.00 Pure hypercholesterolemia, unspecified (principal); R73.03 Prediabetes
CPT/HCPCS: 80061; 80076; 82947; 83036

== ENCOUNTER 2022-05-30 08:27 | Day surgery (SDC) | payer MEDICARE, SELFPAY ==
--- NOTE | 2022-05-29 11:57 | HO.ANESPROP2 ---
Documented by User: Taylor Peacock NP 05/29/22 12:00 HPI - Anesthesia Eval Consult details Narrative: 76yo F for Upper Endoscopy and Colonoscopy [facility], [facility] Past Medical History Medical History Aortic stenosis Elevated cholesterol Fatty liver GERD (gastroesophageal reflux disease) History of Ennis's esophagus HTN (hypertension) Hypothyroid Obesity Family History Family history of problems with anesthesia: No Surgical History Surgical History History of esophagogastroduodenoscopy (EGD) History of Yan fundoplication Hx of brain surgery Hx of colonoscopy History of Problems with Anesthesia: No Social History Social History Patient Tobacco Use Status: Never used Tobacco Second Hand Smoke Exposure: No Are you DNR?: No Advance Directives: No Advance Directives Information Provided: Yes Recently lost weight without trying: No Meds Allergies Allergy/AdvReac Type Severity Reaction Status Date / Time No Known Allergies Allergy Verified 04/27/20 09:47 [No Known Allergies*] Home Medications Medication Instructions Recorded Confirmed Last Taken Type atorvastatin 20 mg tablet 1 tab PO DAILY 04/27/20 05/30/22 05/29/22 History cholecalciferol (vitamin D3) 50 50 mcg PO DAILY 04/27/20 05/30/22 05/29/22 History mcg (2,000 unit) capsule (Vitamin D3) levothyroxine 100 mcg tablet 1 tab PO QAM 04/27/20 05/30/22 05/29/22 History omeprazole 40 mg capsule,delayed 1 cap PO DAILY 04/27/20 05/30/22 05/29/22 History release ursodiol 500 mg tablet 1,000 mg PO DAILY 04/27/20 05/30/22 05/29/22 History valsartan 160 1 tab PO DAILY 04/27/20 05/30/22 05/29/22 History mg-hydrochlorothiazide 12.5 mg tablet Exam Exam Date and Time: May 29, 2022 115 Pertinent Lab Results Pertinent Lab Results: Laboratory Tests 11/16/21 02/19/22 05/01/22 08:00 07:00 08:03 WBC 5.2 Hgb 12.9 Hct 38.5 Plt Count 102 L Sodium 138 Potassium 3.8 Chloride 105 Carbon Dioxide 25 BUN 14 Creatinine 0.81 Narrative Narrative: ECHO 2021 Conclusions: - The left ventricular systolic function is normal.? The ? calculated ejection fraction is 59% by biplane method. ? - There is mild to moderate aortic valve stenosis. ? - There is moderate mitral annular calcification.? Assessment and Plan Assessment Anesthesia Assessment: Chart Reviewed Final Anesthetic Review Family History of Problems with Anesthesia: No History of Problems with Anesthesia: No Documented by User: Abbey Ramirez MD 05/30/22 09:22 [facility] Past Medical History Medical History Aortic stenosis Elevated cholesterol Fatty liver GERD (gastroesophageal reflux disease) History of Ennis's esophagus HTN (hypertension) Hypothyroid Obesity Functional capacity: independent ambulation Patient : No Surgical History Surgical History History of esophagogastroduodenoscopy (EGD) History of Yan fundoplication Hx of brain surgery Hx of colonoscopy Social History Social History Patient Tobacco Use Status: Never used Tobacco Second Hand Smoke Exposure: No Are you DNR?: No Advance Directives: No Advance Directives Information Provided: Yes Recently lost weight without trying: No Meds Allergies Allergy/AdvReac Type Severity Reaction Status Date / Time No Known Allergies Allergy Verified 04/27/20 09:47 [No Known Allergies*] Home Medications Medication Instructions Recorded Confirmed Last Taken Type atorvastatin 20 mg tablet 1 tab PO DAILY 04/27/20 05/30/22 05/29/22 History cholecalciferol (vitamin D3) 50 50 mcg PO DAILY 04/27/20 05/30/22 05/29/22 History mcg (2,000 unit) capsule (Vitamin D3) levothyroxine 100 mcg tablet 1 tab PO QAM 04/27/20 05/30/22 05/29/22 History omeprazole 40 mg capsule,delayed 1 cap PO DAILY 04/27/20 05/30/22 05/29/22 History release ursodiol 500 mg tablet 1,000 mg PO DAILY 04/27/20 05/30/22 05/29/22 History valsartan 160 1 tab PO DAILY 04/27/20 05/30/22 05/29/22 History mg-hydrochlorothiazide 12.5 mg tablet Exam Airway Mallampati Class: III TM Dist: >3cm Neck ROM: Full Heart: RRR Lungs: CTA Assessment and Plan Final Anesthetic Review ASA Class: III Final Preanesthetic Review: No Changes in Pt Med Stat, Meds/Allgs Chart Reviewed, Consent Obtained/Reviewed and Anes Risks/Benef Reviewed Patient Risk: Intermediate Procedure Risk: Low Anesthetic Plan Anesthetic Plan: MAC: Disposition: Standard PACU
[2022-05-30 07:07] VITALS: BMI 36.8
[2022-05-30 08:34] VITALS: BP 168/93; PULSE 92; RESP 20; TEMP 36.6; O2SAT 97
[2022-05-30] MEDS: Lactated Ringers 1,000 ML 100 ML IVCONT (09:03)
[2022-05-30 11:04] VITALS: BP 97/51; PULSE 81; RESP 16; TEMP 36.2; O2SAT 98
--- NOTE | 2022-05-30 11:08 | PM.OP ---
Brief Operative Note Date of Service: 05/30/22 Pre-op diagnosis: Ennis's, Screening Post-op diagnosis: other (Hiatal hernia, Colon polyp) Procedure: EGD with biopsies, Colonoscopy to the cecum and TI with hot snare polypectomy x 1 with placement of 3 Resolution clips Surgeon: Gilberto Hernandez Anesthesia: MAC Was an Process Improvement Specialist used for this Procedure?: No Estimated blood loss (mL): 2.0 Pathology: other (A. EG Junction at 32cm B. Proximal ascending colon polyp) Condition: stable Disposition: PACU
[2022-05-30 11:20] VITALS: BP 109/55; PULSE 75; RESP 16; O2SAT 98
[2022-05-30 11:31] VITALS: BP 138/80; PULSE 69; RESP 16; TEMP 36.4; O2SAT 98
--- NOTE | 2022-05-30 11:56 | OP_ITS ---
SURGEON: Gilberto Hernandez MD INDICATIONS: The patient presents for evaluation of followup of Ennis's esophagus and personal history of colon polyps. Full consent has been obtained from her for both procedures, including risks of bleeding and perforation. PREOPERATIVE DIAGNOSIS: POSTOPERATIVE DIAGNOSIS: PROCEDURE PERFORMED: Esophagogastroduodenoscopy with biopsies and colonoscopy to the cecum and terminal ileum with hot snare polypectomy and placement of 3 resolution clips. ESTIMATED BLOOD LOSS: COMPLICATIONS: ANESTHESIA: Monitored anesthesia care. ASSISTANTS: SPECIMENS: PREOPERATIVE DIAGNOSES: Gastroesophageal reflux, history of Ennis's esophagus, history of tubular adenomas of the colon, and colorectal cancer screening. POSTOPERATIVE DIAGNOSES: Gastroesophageal reflux, history of Ennis's esophagus, history of tubular adenomas of the colon, colorectal cancer screening, hiatal hernia, colon polyp, diverticulosis, internal hemorrhoids. DESCRIPTION OF PROCEDURE: The patient was placed in the left lateral decubitus position. The Olympus video gastroscope was passed into the posterior oropharynx and upper esophagus under direct vision. The scope was passed slowly to the distal esophagus. The gastroesophageal junction appeared at 32 cm. There was some slight irregularity consistent with her known Ennis's mucosa. This was all less than 1 cm in length. There was no esophagitis, ulceration, varices, nor any lesions. The scope entered the stomach. There was a moderate-sized hiatal hernia. The scope was advanced to the pylorus, and the duodenum was cannulated to the descending portion. The duodenum including the bulb appeared normal without mass or ulceration. The scope was withdrawn back in the stomach. The gastric antrum and body appeared normal with good peristalsis. The scope was retroflexed visualizing the proximal stomach carefully. There were several hyperplastic appearing gastric polyps but no sign of any varices, gastropathy, ulceration, nor mass. The scope was straightened and withdrawn back to the esophagus. Multiple biopsies were obtained at the EG junction at 32 cm. Proximal to this, the esophageal mucosa appeared normal. There was no evidence of any esophageal varices. The scope was withdrawn from the patient. She was turned around for the colonoscopy. The digital rectal exam revealed no abnormalities. The Olympus video colonoscope was entered into the rectum and advanced easily to the cecum. Once in the cecum, I did identify normal-appearing cecal pouch with appendiceal orifice and a normal-appearing ileocecal valve. The terminal ileum was cannulated and appeared normal. The scope was withdrawn back in the colon. The entire cecum and ileocecal valve appeared normal. The scope was slowly withdrawn assessing all mucosal surfaces carefully. Preparation was excellent. In the proximal ascending colon, along a fold, opposite the ileocecal valve, was some residual polyp tissue measuring approximately 1.5 cm in diameter. This was removed in piecemeal fashion with hot snare polypectomy. The largest piece was recovered by suction. Post-polypectomy, there did not appear to be any residual polyp tissue nor bleeding. Three resolution clips were applied to the polypectomy site with good deployment and good hemostasis. The scope was then slowly withdrawn assessing all mucosal surfaces carefully. Preparation was excellent. In the distal sigmoid colon were 2 less than 10 mm probable hyperplastic polyps, which were not removed. I did not visualize any other polyps, colitis, nor angiodysplasia. There was a mild amount of sigmoid diverticulosis. In the rectum, the scope was retroflexed visualizing small internal hemorrhoids, but no other pathology. The rectal mucosa appeared normal. The scope was straightened and withdrawn from the patient. She tolerated both procedures well and was returned to the recovery area in stable condition. IMPRESSION: 1. Colon polyp. 2. Hiatal hernia with associated reflux and Ennis's esophagus. 3. Diverticulosis. 4. Internal hemorrhoids. PLAN: The results of the pathology will be checked. I would recommend a repeat colonoscopy in 1 year for surveillance. She was advised not to use any aspirin or NSAIDs for at least 2 weeks. She was advised that she could resume her iron in 1 week. She will see me toward the end of this year for followup of her underlying liver disease and to schedule another colonoscopy for the early part of 2023. MD LUCIE Ponce/REED / [phone] ALEX
== END 2022-05-30 13:08 | disposition home or self-care (01) ==
PROVIDERS: PCP Internal Medicine; Visit Provider Internal Medicine
PROC: (CPT 45385; principal; 2022-05-30 09:40)
DX: Z12.11 Encounter for screening for malignant neoplasm of colon (principal); Z86.010 Personal history of colon polyps; D12.2 Benign neoplasm of ascending colon; K57.30 Diverticulosis of large intestine without perforation or abscess without bleeding; K64.8 Other hemorrhoids; K21.9 Gastro-esophageal reflux disease without esophagitis; K22.70 Barrett's esophagus without dysplasia; K31.7 Polyp of stomach and duodenum; K44.9 Diaphragmatic hernia without obstruction or gangrene; K74.69 Other cirrhosis of liver; I10 Essential (primary) hypertension; E03.9 Hypothyroidism, unspecified; E78.5 Hyperlipidemia, unspecified; Z79.899 Other long term (current) drug therapy; Z98.890 Other specified postprocedural states; Z87.891 Personal history of nicotine dependence
CPT/HCPCS: 45385; 43239; 88305

== ENCOUNTER 2022-11-19 11:19 | Outpatient (REF) | payer MEDICARE, SELFPAY ==
[2022-11-19 12:42] LABS: Alanine Aminotransferase 17 U/L (0-31); Albumin Level 3.9 g/dL (3.5-5.0); Alkaline Phosphatase 54 U/L (39-117); Anion Gap 14 (12-20); Aspartate Amino Transferase 23 U/L (5-31); Bilirubin Total 0.9 mg/dL (0.0-1.0); Blood Urea Nitrogen 13 mg/dL (9-16); Calcium 9.4 mg/dL (8.4-10.2); Carbon Dioxide 24 mmol/L (22-29); Chloride 107 mmol/L (96-108); Cholesterol 87 mg/dL; Estimated Glomerular Filt Rate > 60; Glucose Fasting 112 mg/dL (60-99); HDL Cholesterol 33 mg/dL; LDL Cholesterol Calculated 38 mg/dl; Potassium 3.8 mmol/L (3.3-5.1); Sodium 141 mmol/L (135-145); Total Protein 6.3 g/dL (6.5-8.0); Triglycerides 82 mg/dL
[2022-11-19 13:00] LABS: TSH reflex Free T4 0.68 uIU/mL (0.32-4.0); Vitamin D 25-OH Total 20.2 ng/mL (>30)
== END 2022-11-19 11:20 | disposition home or self-care (01) ==
LOC: HO.LNP 11:19
PROVIDERS: Visit Provider Internal Medicine
DX: Z00.00 Encounter for general adult medical examination without abnormal findings (principal); I10 Essential (primary) hypertension; E03.9 Hypothyroidism, unspecified; R73.03 Prediabetes; E78.00 Pure hypercholesterolemia, unspecified; D72.820 Lymphocytosis (symptomatic); E55.9 Vitamin D deficiency, unspecified
CPT/HCPCS: 80053; 80061; 81001; 82043; 82306; 83036; 84443; 85025; 87086; 87147

== ENCOUNTER 2022-12-27 10:56 | Outpatient (REF) | payer MEDICARE, SELFPAY ==
[2022-12-27 10:58] LABS: MANUAL DIFF FLAG NO
[2022-12-27 11:28] LABS: Basophils Percent Auto 0.7 % (0-2); Eosinophils Absolute Auto 0.1 X10*3/uL (0.0-0.4); Eosinophils Percent Auto 2.6 % (0-4); Hematocrit 36.4 % (37.0-47.0); Hemoglobin 11.9 g/dl (12.0-16.0); Imm Gran Abs Auto 0.01 X10*3/uL (0.00-0.03); Imm Gran Pct Auto 0.2 % (0.0-0.4); Lymphocytes Absolute Auto 1.8 X10*3/uL (1.2-4.9); Lymphocytes Percent Auto 42.7 % (20-40); Mean Corpuscular HGB Conc 32.7 g/dl (31.0-35.0); Mean Corpuscular Hemoglobin 26.2 pg (27.0-33.0); Mean Platelet Volume 12.6 fL (9.4-12.3); Monocytes Absolute Auto 0.5 X10*3/uL (0.1-1.2); Monocytes Percent Auto 12.6 % (2-11); Neutrophils Absolute Auto 1.7 x10*3/uL (2.0-8.3); Neutrophils Percent Auto 41.2 % (45-73); Red Blood Count 4.55 X10*6/uL (4.20-5.50); Red Cell Distribution Width 14.6 % (11.0-16.0); White Blood Count 4.2 X10*3/uL (4.8-10.8)
[2022-12-27 11:29] LABS: Platelet Count 98 X10*3/uL (160-400)
== END 2022-12-27 10:57 | disposition home or self-care (01) ==
LOC: HO.LNP 10:56
PROVIDERS: Visit Provider Internal Medicine
DX: D69.6 Thrombocytopenia, unspecified (principal)
CPT/HCPCS: 85025

== ENCOUNTER 2023-02-01 08:41 | Outpatient (REF) | payer MEDICARE, SELFPAY ==
--- NOTE | ~2023-02-01 | US_ITS ---
EXAMINATION: US RETROPERITONEAL LIMITED (AORTA) CLINICAL INFORMATION: Abdominal bruit. COMPARISON: None available. TECHNIQUE: Baeza-scale, color Doppler and spectral Doppler evaluation of the abdominal aorta. Technically limited study secondary to bowel gas and body habitus. FINDINGS: The aorta is normal atherosclerotic. The measurements of the aorta in maximum AP and transverse dimensions respectively are as follows: Proximal: 2.2 x 2.0 cm. Mid: 1.9 x 1.9 cm. Distal: 1.7 x 1.7 cm. PSV: 87.7 cm/s. The measurements of the common iliac arteries in maximum AP and TRV dimensions are as follows: Right Common Iliac Artery: 1.0 x 1.1 cm. Left Common Iliac Artery: 1.3 x 1.2 cm. US/US abdominal aortic aneurysm IMPRESSION: Negative for abdominal aortic aneurysm.
== END 2023-02-01 08:42 | disposition home or self-care (01) ==
LOC: HO.US 08:41
PROVIDERS: PCP Internal Medicine; Visit Provider Internal Medicine
DX: R09.89 Other specified symptoms and signs involving the circulatory and respiratory systems (principal)
CPT/HCPCS: 76706

== ENCOUNTER 2023-02-18 08:06 | Outpatient (REF) | payer MEDICARE, SELFPAY ==
--- NOTE | ~2023-02-18 | MM_ITS ---
EXAMINATION: MM SCREENING DIGITAL BREAST TOMOSYNTHESIS, BILATERAL CLINICAL INFORMATION: Screening. Asymptomatic. COMPARISON: Mammography: 02/12/2022, 02/08/2021, 02/03/2020, 01/29/2019 TECHNIQUE: Digital breast tomosynthesis is performed in both the craniocaudal and mediolateral oblique views along with computer-aided detection (CAD). Synthesized 2D images are generated from the tomosynthesis. FINDINGS: The breasts are almost entirely fatty (ACR BI-RADS breast composition Category a). There are no suspicious masses, suspicious grouped calcifications, or areas of architectural distortion in either breast. The parenchymal pattern is stable from prior exams. No skin changes or axillary abnormalities. MM/MM tomosynthesis screening BI IMPRESSION: No mammographic evidence of malignancy. ASSESSMENT: BI-RADS BI-RADS 1 - Negative RECOMMENDATION: Routine annual mammography screening. 1 year F/U This examination should not preclude the clinical evaluation of a suspicious palpable abnormality. This patient's information was entered into a reminder system with a target due date for their next mammogram.
== END 2023-02-18 08:07 | disposition home or self-care (01) ==
LOC: HO.MAMMO 08:06
PROVIDERS: PCP Internal Medicine; Visit Provider Internal Medicine
DX: Z12.31 Encounter for screening mammogram for malignant neoplasm of breast (principal)
CPT/HCPCS: 77063; 77067

== ENCOUNTER → 2023-02-18 08:30 | Outpatient (BNV) | payer MEDICARE, SELFPAY | PROVIDERS: PCP Internal Medicine; Visit Provider Radiology Diagnostic Radiology | DX: Z12.31 Encounter for screening mammogram for malignant neoplasm of breast (principal) | CPT/HCPCS: 77063; 77067 ==

== ENCOUNTER 2023-02-22 09:00 | Outpatient (AMB) | payer MEDICARE, SELFPAY ==
[2023-02-22 10:33] VITALS: BP 130/72; PULSE 94; TEMP 36.6; O2SAT 97; BMI 31.1
--- NOTE | 2023-02-22 10:33 | MHC.OFFWIV ---
Intake Vital Signs 02/22/23 10:33 Height 5 ft 5.25 in Weight 188 lb 6 oz BMI 31.1 BP 130/72 Blood Pressure Location Lt brachial Position Sitting Pulse 94 Pulse Source Pulse Oximeter Temp 97.9 F Temp Source Temporal Artery Scan Pulse Oximetry (%) 97 Intake Visit Reasons: EP, Bilateral leg rash Intake Note: pt is here for c/o bilateral leg rash since last night Patient Tobacco Use Status: Never used Tobacco Allergies No Known Allergies [No Known Allergies*] Allergy (Verified 02/22/23 10:33) Do you need a note to return to daycare/school/sports/work: Yes HPI HPI Comments History of Present Illness Details This is a 77-year-old female who presents to the office today for sick visit. Patient complaining of rash on her feet and ankles that began last night. patient states she started to develop some pruritus of her feet last night. When she took off her pants and socks, she noticed a rash of both of her feet extending into both of her ankles. She denies any exposure to new creams, lotions, detergents, soaps, medications, etc. She denies any chest tightness, wheezing, or shortness of breath. Patient is otherwise feeling well. She denies any known tick bites. [facility] Medical History Aortic stenosis Elevated cholesterol Fatty liver GERD (gastroesophageal reflux disease) History of Ennis's esophagus HTN (hypertension) Hypothyroid Obesity Surgical History History of esophagogastroduodenoscopy (EGD) History of Yan fundoplication Hx of brain surgery Hx of colonoscopy Social History Patient Tobacco Use Status: Never used Tobacco Second Hand Smoke Exposure: No Review of Systems Const All systems reviewed & are unremarkable except as noted in HPI and below Reports no additional complaints Eyes Reports no additional complaints ENT Reports no additional complaints Card Reports no additional complaints Resp Reports no additional complaints GI Reports no additional complaints Reports no additional complaints Musc Reports no additional complaints Skin/Breast Reports system reviewed and no additional complaints, except as documented Neuro Reports no additional complaints Psych Reports no additional complaints Endo Reports no additional complaints Shamar/Lymph Reports no additional complaints Aller/Immun Reports no additional complaints Physical Exam Vital Signs: Last Vital Signs Temp 97.9 F 02/22/23 10:33 Pulse 94 02/22/23 10:33 BP 130/72 02/22/23 10:33 Pulse Ox 97 02/22/23 10:33 BMI result Body Mass Index 31.1 Const Other: Vital signs reviewed. Constitutional: Non-toxic appearing. No acute distress. Well-developed and well-nourished. HEENT: Normocephalic and atraumatic. Tympanic membranes without erythema, edema, or bulging bilaterally. External auditory canals without erythema or edema bilaterally. Moist mucous membranes. No pharyngeal erythema or exudates. Skin: Erythematous maculopapular rash of bilateral feet and ankles. Neck: Full and painless range of motion. No cervical lymphadenopathy. Cardio: Regular rate and rhythm. No murmurs, gallops, or rubs. No lower extremity edema. No JVD. Pulmonary: No respiratory distress. No accessory muscle usage. Clear to auscultation bilaterally without wheezing, crackles, or rhonchi. Gastrointestinal: Soft, nontender, and nondistended in all 4 quadrants. Normoactive bowel sounds in all 4 quadrants. Genitourinary: No CVA tenderness. Musculoskeletal: Normal range of motion in joints throughout the body. No deformity or other signs of injury. Neuro: Alert and oriented x4. Cranial nerves 2-12 grossly intact. No focal deficits appreciated. Psych: Normal mood and affect. Assessment & Plan Assessment & Plan (1) Contact dermatitis: Code(s): L25.9 - Unspecified contact dermatitis, unspecified cause Qualifiers: Contact dermatitis type: irritant Contact dermatitis trigger: unspecified trigger Qualified Code(s): L24.9 - Irritant contact dermatitis, unspecified cause Plan This is a 77-year-old female presenting to the office complaining of a rash of bilateral feet and ankles. On physical examination, there is an erythematous maculopapular rash of bilateral feet and ankles. History and physical most consistent with contact dermatitis with unknown trigger. No evidence of cellulitis or lymphangitic streaking. No purulent drainage. Patient's vital signs are stable, her physical exam is otherwise benign, and she is overall nontoxic appearing. Patient sent home on a prednisone taper. She was instructed to clean the area with gentle soap and water and apply gentle/fragrance free lotion. Patient can utilize oral antihistamines as needed for itching. Patient was advised to follow-up here or proceed directly to the emergency room if she were to develop worsening erythema, lymphangitic streaking, fever/ chills, or chest tightness, shortness of breath, or wheezing. Patient verbalized understanding and is agreeable with the plan. Medications: New prednisone take 4 tablets daily x3 days followed by 3 tablets daily x3 days followed by 2 tablets daily x3 days followed by 1 tablet daily x3 days followed by 1/2 tablet daily x2 days 10 mg PO DIRECTED 31 tabs 0RF Coding Level of Care Code Est Pt Level 3 (20044) Diagnoses Irritant contact dermatitis, unspecified trigger L24.9 Contact dermatitis type: irritant Contact dermatitis trigger: unspecified trigger
== END 2023-02-22 11:21 | disposition home or self-care (01) ==
PROVIDERS: PCP Internal Medicine; Visit Provider Physician Assistant Medical
DX: L24.9 Irritant contact dermatitis, unspecified cause (principal)
CPT/HCPCS: 99213

== ENCOUNTER 2023-04-30 07:24 | Outpatient (REF) | payer MEDICARE, SELFPAY ==
--- NOTE | ~2023-04-30 | US_ITS ---
EXAMINATION: US ABDOMEN COMPLETE CLINICAL INFORMATION: Cirrhosis of liver. COMPARISON: Ultrasound abdomen complete 05/01/2022 and 04/03/2021. MRI abdomen 10/22/2019. TECHNIQUE: Real-time imaging of the abdominal viscera. FINDINGS: PANCREAS: Normal head and body, the tail is obscured by bowel gas. ABDOMINAL AORTA: Atherosclerotic plaque is seen within a normal caliber abdominal aorta. INFERIOR VENA CAVA: Visualized portions are normal. LIVER: The liver is normal in size. The liver contour is normal. Parenchymal echogenicity is normal. Echotexture is slightly heterogeneous. No focal hepatic lesion. There is no intrahepatic biliary duct dilatation seen. GALLBLADDER: Normal. The gallbladder is physiologically distended without evidence of stones, sludge, polyps, wall thickening or pericholecystic fluid. COMMON BILE DUCT: Normal in caliber measuring 0.6 cm in diameter. RIGHT KIDNEY: Normal. No hydronephrosis. No renal calculi or focal parenchymal lesions. The kidney measures 10.6 cm in maximum dimension. LEFT KIDNEY: Normal. No hydronephrosis. No renal calculi or focal parenchymal lesions. The kidney measures 10.3 cm in maximum dimension. SPLEEN: The spleen is enlarged. The spleen measures 16.1 cm in maximum dimension. FREE FLUID: None. US/US abdomen complete IMPRESSION: 1. Slightly heterogeneous echotexture of the liver without a focal abnormality. 2. Splenomegaly. 3. Atherosclerotic plaque is seen within a normal caliber abdominal aorta.
[2023-04-30 07:56] LABS: MANUAL DIFF FLAG NO
[2023-04-30 08:06] LABS: Basophils Percent Auto 0.8 % (0-2); Eosinophils Absolute Auto 0.1 X10*3/uL (0.0-0.4); Eosinophils Percent Auto 2.9 % (0-4); Hematocrit 31.1 % (37.0-47.0); Hemoglobin 9.8 g/dl (12.0-16.0); Lymphocytes Absolute Auto 1.6 X10*3/uL (1.2-4.9); Lymphocytes Percent Auto 41.7 % (20-40); Mean Corpuscular HGB Conc 31.5 g/dl (31.0-35.0); Mean Corpuscular Hemoglobin 24.8 pg (27.0-33.0); Mean Corpuscular Volume 78.7 fL (80.0-98.0); Mean Platelet Volume 12.1 fL (9.4-12.3); Monocytes Absolute Auto 0.4 X10*3/uL (0.1-1.2); Monocytes Percent Auto 9.4 % (2-11); Neutrophils Absolute Auto 1.7 x10*3/uL (2.0-8.3); Neutrophils Percent Auto 45.2 % (45-73); Red Blood Count 3.95 X10*6/uL (4.20-5.50); Red Cell Distribution Width 14.3 % (11.0-16.0); White Blood Count 3.8 X10*3/uL (4.8-10.8)
[2023-04-30 08:07] LABS: Prothrombin Time 12.5 SEC (11.1-13.3)
[2023-04-30 08:08] LABS: Platelet Count 99 X10*3/uL (160-400)
[2023-04-30 08:23] LABS: Alanine Aminotransferase 12 U/L (0-31); Albumin Level 3.8 g/dL (3.5-5.0); Alkaline Phosphatase 60 U/L (39-117); Aspartate Amino Transferase 22 U/L (5-31); Bilirubin Direct 0.2 mg/dL (0.0-0.5); Bilirubin Total 0.5 mg/dL (0.0-1.0); Total Protein 6.3 g/dL (6.5-8.0)
[2023-05-01 11:29] LABS: Alpha Fetoprotein 6.1 ng/mL
== END 2023-04-30 07:25 | disposition home or self-care (01) ==
LOC: HO.US 07:24
PROVIDERS: PCP Internal Medicine; Visit Provider Internal Medicine
DX: K74.69 Other cirrhosis of liver (principal)
CPT/HCPCS: 36415; 76700; 80076; 82105; 85025; 85610

== ENCOUNTER 2023-05-28 10:48 | Outpatient (REF) | payer MEDICARE, SELFPAY ==
[2023-05-28 11:25] LABS: Estimated Average Glucose 97 mg/dL
[2023-05-28 11:31] LABS: Alanine Aminotransferase 12 U/L (0-31); Albumin Level 3.8 g/dL (3.5-5.0); Alkaline Phosphatase 49 U/L (39-117); Aspartate Amino Transferase 18 U/L (5-31); Bilirubin Direct 0.2 mg/dL (0.0-0.5); Bilirubin Total 0.5 mg/dL (0.0-1.0); Cholesterol 95 mg/dL (<200); Glucose Fasting 119 mg/dL (60-99); HDL Cholesterol 43 mg/dL (>40); LDL Cholesterol Calculated 39 mg/dL (<100); Total Protein 6.2 g/dL (6.5-8.0); Triglycerides 69 mg/dL (<150)
[2023-05-28 15:42] LABS: Reflex LDLD? No
== END 2023-05-28 10:49 | disposition home or self-care (01) ==
LOC: HO.LNP 10:48
PROVIDERS: Visit Provider Internal Medicine
DX: E78.00 Pure hypercholesterolemia, unspecified (principal); R73.09 Other abnormal glucose
CPT/HCPCS: 80061; 80076; 82947; 83036

== ENCOUNTER 2023-05-29 06:22 | Day surgery (SDC) | payer MEDICARE, SELFPAY ==
--- NOTE | 2023-05-28 09:24 | HO.ANESPROP2 ---
Documented by User: Taylor Peacock NP 05/28/23 09:27 HPI - Anesthesia Eval Consult details Narrative: 77yo F for Colonoscopy Chronic low CBC PMFSH Past Medical History Medical History Aortic stenosis Elevated cholesterol Fatty liver GERD (gastroesophageal reflux disease) History of Ennis's esophagus HTN (hypertension) Hypothyroid Obesity Family History Family history of problems with anesthesia: No Surgical History Surgical History History of esophagogastroduodenoscopy (EGD) History of Yan fundoplication Hx of brain surgery Hx of colonoscopy History of Problems with Anesthesia: No Social History Social History Patient Tobacco Use Status: Former Tobacco user Quit Date: 30 yr ago Second Hand Smoke Exposure: No Use of substances other than those prescribed or required for medical reasons: No Are you DNR?: No Advance Directives: No Advance Directives Information Provided: Yes Meds Allergies Allergy/AdvReac Type Severity Reaction Status Date / Time No Known Allergies Allergy Verified 02/22/23 10:33 [No Known Allergies*] Home Medications Medication Instructions Recorded Confirmed Last Taken Type atorvastatin 20 mg tablet 1 tab PO DAILY 04/27/20 05/29/23 05/29/22 History cholecalciferol (vitamin D3) 50 50 mcg PO DAILY 04/27/20 05/29/23 05/29/22 History mcg (2,000 unit) capsule (Vitamin D3) levothyroxine 100 mcg tablet 1 tab PO QAM 04/27/20 05/29/23 05/29/22 History omeprazole 40 mg capsule,delayed 1 cap PO DAILY 04/27/20 05/29/23 05/29/22 History release ursodiol 500 mg tablet 1,000 mg PO DAILY 04/27/20 05/29/23 05/29/22 History valsartan 160 1 tab PO DAILY 04/27/20 05/29/23 05/29/23 04:45 History mg-hydrochlorothiazide 12.5 mg tablet Exam Pertinent Lab Results Pertinent Lab Results: Laboratory Tests 11/19/22 04/30/23 08:15 07:54 WBC 3.8 L Hgb 9.8 L Hct 31.1 L Plt Count 99 L Sodium 141 Potassium 3.8 Chloride 107 Carbon Dioxide 24 BUN 13 Creatinine 0.80 Narrative Narrative: ECHO 2021 Conclusions: - The left ventricular systolic function is normal. The calculated ejection fraction is 59% by biplane method. - There is mild to moderate aortic valve stenosis. - There is moderate mitral annular calcification. Assessment and Plan Assessment Anesthesia Assessment: Chart Reviewed Final Anesthetic Review Family History of Problems with Anesthesia: No History of Problems with Anesthesia: No Documented by User: [place] MD 05/29/23 07:34 [facility] Past Medical History Medical History Aortic stenosis Elevated cholesterol Fatty liver GERD (gastroesophageal reflux disease) History of Ennis's esophagus HTN (hypertension) Hypothyroid Obesity Surgical History Surgical History History of esophagogastroduodenoscopy (EGD) History of Yan fundoplication Hx of brain surgery Hx of colonoscopy Social History Social History Patient Tobacco Use Status: Former Tobacco user Quit Date: 30 yr ago Second Hand Smoke Exposure: No Use of substances other than those prescribed or required for medical reasons: No Are you DNR?: No Advance Directives: No Advance Directives Information Provided: Yes Meds Allergies Allergy/AdvReac Type Severity Reaction Status Date / Time No Known Allergies Allergy Verified 02/22/23 10:33 [No Known Allergies*] Home Medications Medication Instructions Recorded Confirmed Last Taken Type atorvastatin 20 mg tablet 1 tab PO DAILY 04/27/20 05/29/23 05/29/22 History cholecalciferol (vitamin D3) 50 50 mcg PO DAILY 04/27/20 05/29/23 05/29/22 History mcg (2,000 unit) capsule (Vitamin D3) levothyroxine 100 mcg tablet 1 tab PO QAM 04/27/20 05/29/23 05/29/22 History omeprazole 40 mg capsule,delayed 1 cap PO DAILY 04/27/20 05/29/23 05/29/22 History release ursodiol 500 mg tablet 1,000 mg PO DAILY 04/27/20 05/29/23 05/29/22 History valsartan 160 1 tab PO DAILY 04/27/20 05/29/23 05/29/23 04:45 History mg-hydrochlorothiazide 12.5 mg tablet Exam Airway Mallampati Class: I TM Dist: >3cm Neck ROM: Full Denture: Upper Heart: ok. mild-mod Lungs: ok. Sat 95% RA. Assessment and Plan Assessment Anesthesia Assessment: Anesthesia Plan Discussed Final Anesthetic Review NPO: Yes ASA Class: III Final Preanesthetic Review: No Changes in Pt Med Stat, Meds/Allgs Chart Reviewed, Consent Obtained/Reviewed and Anes Risks/Benef Reviewed Patient Risk: Intermediate Procedure Risk: Low Anesthetic Plan Anesthetic Plan: MAC: and Agree w/ Assess. and Plan Disposition: Standard PACU
[2023-05-29 06:36] VITALS: BMI 30.3
[2023-05-29 06:53] VITALS: BP 118/61; PULSE 85; RESP 16; TEMP 36.2; O2SAT 99
[2023-05-29] MEDS: Lactated Ringers 1,000 ML 100 ML IVCONT (07:02)
[2023-05-29 08:26] VITALS: BP 90/43; PULSE 80; RESP 18; TEMP 36.2; O2SAT 99
--- NOTE | 2023-05-29 08:29 | PM.OP ---
Brief Operative Note Date of Service: 05/29/23 Pre-op diagnosis: Screening Post-op diagnosis: other (Diverticulosis) Procedure: Colonoscopy to the cecum Surgeon: Gilberto Hernandez MD Anesthesia: MAC Was an Manager Of Business Operations used for this Procedure?: No Estimated blood loss (mL): 0 Pathology: none sent Condition: stable Disposition: PACU
[2023-05-29 08:41] VITALS: BP 95/46; PULSE 71; RESP 18; O2SAT 98
--- NOTE | 2023-05-29 08:43 | OP_ITS ---
DATE OF SERVICE: 05/29/2023 SURGEON: Gilberto Hernandez MD INDICATIONS: The patient presents for evaluation of colorectal cancer screening and personal history of tubular adenoma of the colon. Full consent obtained from her for this, including risks of bleeding and perforation. PREOPERATIVE DIAGNOSIS: POSTOPERATIVE DIAGNOSIS: PROCEDURE PERFORMED: Colonoscopy to cecum. ESTIMATED BLOOD LOSS: COMPLICATIONS: ANESTHESIA: Medication used; monitored anesthesia care. ASSISTANTS: SPECIMENS: PREOPERATIVE DIAGNOSES: Colorectal cancer screening and personal history of tubular adenoma of the colon. POSTOPERATIVE DIAGNOSES: Colorectal cancer screening and personal history of tubular adenoma of the colon, diverticulosis, internal hemorrhoids. DESCRIPTION OF PROCEDURE: The patient was placed in the left lateral decubitus position. The digital rectal exam revealed no abnormalities. The Olympus video pediatric colonoscope was entered into the rectum and advanced easily to the cecum. Once in the cecum, I did identify a normal-appearing cecal pouch with appendiceal orifice and a normal-appearing ileocecal valve. The entire cecum and ileocecal valve appeared normal. The scope was slowly withdrawn, assessing all mucosal surfaces carefully. Preparation in the ascending colon and transverse colon was excellent. There was some residual solid stool in the descending and sigmoid colon, which was irrigated and moved away as best as possible. In the proximal ascending colon I did not visualize any sign of residual polyp tissue. I did not visualize any polyps, colitis, nor angiodysplasias throughout the remainder of the colon as well. There was a mild amount of sigmoid diverticulosis. In the rectum, scope was retroflexed visualizing internal hemorrhoids, but no other pathology. The rectal mucosa appeared normal. The scope was straightened and withdrawn from the patient. She tolerated the procedure well and was returned to the recovery area in stable condition. IMPRESSION: 1. Diverticulosis. 2. Internal hemorrhoids. PLAN: She will see me in the Fall for a followup visit in regard to underlying liver disease. Depending upon her clinical condition we may want to have her repeat a colonoscopy in 2 to 3 years, although at that point, she would be just about 80 years old. She was advised to call sooner as needed. MD LUCIE Ponce/REED / [phone] ALEX
[2023-05-29 08:56] VITALS: BP 112/58; PULSE 73; RESP 18; O2SAT 98
== END 2023-05-29 09:39 | disposition home or self-care (01) ==
PROVIDERS: PCP Internal Medicine; Visit Provider Internal Medicine
PROC: 0DJD8ZZ Inspection of Lower Intestinal Tract, Via Natural or Artificial Opening Endoscopic (ICD-10-PCS; CPT 45378; principal; 2023-05-29 07:30)
DX: Z12.11 Encounter for screening for malignant neoplasm of colon (principal); Z86.010 Personal history of colon polyps; K57.30 Diverticulosis of large intestine without perforation or abscess without bleeding; K64.8 Other hemorrhoids; K76.0 Fatty (change of) liver, not elsewhere classified; K74.69 Other cirrhosis of liver; K21.9 Gastro-esophageal reflux disease without esophagitis; K22.70 Barrett's esophagus without dysplasia; I10 Essential (primary) hypertension; E78.5 Hyperlipidemia, unspecified; E03.9 Hypothyroidism, unspecified; Z79.899 Other long term (current) drug therapy; Z88.8 Allergy status to other drugs, medicaments and biological substances; Z98.890 Other specified postprocedural states; Z87.891 Personal history of nicotine dependence
CPT/HCPCS: G0105; J2371; J2704

== ENCOUNTER → 2023-06-05 08:41 | Outpatient (REF) | payer MEDICARE, SELFPAY ==
--- NOTE | 2023-06-05 08:45 | CA_ITS ---
Transthoracic Echocardiogram Patient (Last, First, Middle): Mary Lou Celestin S Gender: Female Date of : 1945 Age: 77 Procedure Date: 06/05/2023 Procedure Type: Transthoracic Echocardiogram Location: OP Height: 167.64 cm Weight: 84.82 kg BSA: 1.94 m2 Heart Rate: bpm BP: 134 / 82 mmHg Quality Control Specialist: SIVA Referring MD: Christian Lewis MD Symptoms: I35.0 MODERATE AORTIC STENOSIS Study Quality: Adequate ECG Rhythm: Sinus Conclusions: - The left ventricular systolic function is normal. The visually estimated ejection fraction is between 65-70%. - There is moderate to severe aortic valve stenosis. - There is moderate mitral annular calcification. - The left atrium is severely dilated. Findings Left Ventricle Normal left ventricular cavity size. The left ventricular systolic function is normal. The visually estimated ejection fraction is between 65-70%. There is no evidence of regional wall motion abnormalities. Evidence suggests grade I (mild) diastolic dysfunction. There is mild septal and mild basal asymmetric hypertrophy. LV peak GLS -15.6%; slightly decreased, but suspect underestimation. Right Ventricle Mildly increased right ventricular cavity size. There is normal right ventricular systolic function. Atria The left atrium is severely dilated. The right atrium is normal in size. Aortic Valve There is severe calcification of the aortic valve. There is moderate to severe aortic valve stenosis. The peak aortic velocity is 3.51 m/s with a calculated peak gradient of 49 mmHg. The mean gradient is 31 mmHg. The aortic valve area is 0.92 cm2. Dimensionless index 0.26. Stroke volume index 45ml/m2. Mitral Valve There is moderate mitral annular calcification. There is trace mitral valve regurgitation. There is no mitral valve stenosis. Pulmonic Valve The pulmonic valve is likely normal. Tricuspid Valve There is trace tricuspid valve regurgitation. There is no evidence of pulmonary hypertension. Great Vessels The asc aorta is normal in size. Venous The inferior vena cava is normal in size and collapses greater than 50% with inspiration. Pericardium/Pleural There is no evidence of pericardial effusion. Prior Study Comparison Changes noted compared to prior study dated: 06/27/2021. Progression of aortic valve stenosis. Measurements 2D Linear Measurements IVSd: 1.29 0.6-0.9/0.6-1.0 cm LVIDd: 4.06 3.9-5.3/4.2-5.9 cm LVIDd Index: 2.09 2.4-3.2/2.2-3.1 cm/m2 LVIDs: 2.31 2.0-3.6 cm LVPWd: 1.18 0.7-1.1 cm LA Diam: 4.20 2.7-3.8/3.0-4.0 cm LAIDs Index: 2.16 1.5-2.3 cm/m2 LV Mass: 219.98 67-162/88-224 g LV Mass Index: 113.39 43-95/49-115 g/m2 LVOT Diam: 2.00 3.0+(-)1.3 cm 2D Systolic Function EF 4C: 68.50 >55% Mitral Valve MV VTI: 0.48 MV Pk Wilian: 1.85 MV Mn Wilian: 1.15 MV Pk Grad: 14.00 MV Mn Grad: 6.00 MV Pk E: 1.28 MV PK A: 1.69 MV Decel Time: 319.00 E/A: 0.80 E'Lateral: 4.03 E'Medial: 5.55 E/E' Med: 23.10 E/E' Lat: 31.80 PHT: 93.00 MVA PHT: 2.37 MVA Continuity: 1.82 Decel Cooke: 4.00 Aortic Valve AoV Pk Wilian: 3.51 AoV Mn Wilian: 2.62 AoV VTI: 0.94 AoV Pk Grad: 49.00 Aov Mn Grad: 31.00 KATIE Cont.VTI: 0.92 LVOT LVOT Pk Wilian: 0.92 LVOT Mn Wilian: 0.69 LVOT VTI: 0.28 LVOT Pk Grad: 3.00 LVOT Mn Grad: 2.00 LVOT Diam: 2.00 LVOT Area: 3.14 Diastolic Function MV Pk E: 1.28 MV Pk A: 1.69 E/A: 0.80 E'Medial: 5.55 E/E' Med: 23.10 E' Laterial: 4.03 E/E' Lat: 31.80 Right Ventricle TAPSE (mm): 25.20 TVS' Wilian: 16.10 Tricuspid Valve RA Press: 3.00 Great Vessels Aorta Sinus of Valsalva: 3.83 2.0-3.[address] [place]: 2.86 1.7-3.4 cm Ao Asc: 3.50 2.1-3.4 cm Updated in Other Vendor System with Status of Final Julian Henao MD electronically signed on 06/06/2023 9:20:41 AM with status of Final
== END ==
LOC: HO.CARD 08:41
PROVIDERS: PCP Internal Medicine; Visit Provider Internal Medicine
DX: I35.0 Nonrheumatic aortic (valve) stenosis (principal)
CPT/HCPCS: 93306; 93356

== ENCOUNTER → 2023-06-05 08:45 | Outpatient (BNV) | payer MEDICARE, SELFPAY | PROVIDERS: PCP Internal Medicine; Visit Provider Internal Medicine | DX: I35.0 Nonrheumatic aortic (valve) stenosis (principal) | CPT/HCPCS: 93306 ==

== ENCOUNTER 2023-07-04 07:36 | Outpatient (REF) | payer MEDICARE, SELFPAY ==
[2023-07-04 10:13] LABS: MANUAL DIFF FLAG NO
[2023-07-04 10:26] LABS: Eosinophils Absolute Auto 0.1 X10*3/uL (0.0-0.4); Eosinophils Percent Auto 2.9 % (0-4); Hematocrit 31.2 % (37.0-47.0); Hemoglobin 9.7 g/dl (12.0-16.0); Lymphocytes Absolute Auto 1.2 X10*3/uL (1.2-4.9); Lymphocytes Percent Auto 39.6 % (20-40); Mean Corpuscular HGB Conc 31.1 g/dl (31.0-35.0); Mean Corpuscular Hemoglobin 24.6 pg (27.0-33.0); Mean Platelet Volume 11.6 fL (9.4-12.3); Monocytes Absolute Auto 0.4 X10*3/uL (0.1-1.2); Monocytes Percent Auto 11.8 % (2-11); Neutrophils Absolute Auto 1.4 x10*3/uL (2.0-8.3); Neutrophils Percent Auto 44.7 % (45-73); Platelet Count 85 X10*3/uL (160-400); Red Blood Count 3.95 X10*6/uL (4.20-5.50); Red Cell Distribution Width 19.5 % (11.0-16.0); White Blood Count 3.1 X10*3/uL (4.8-10.8)
[2023-07-04 10:44] LABS: Iron 208 mcg/dL (30-160); Percent Iron Saturation 59 % (15-50); Total Iron Binding Capacity 354 mcg/dL (228-428); Unsaturated Iron Binding 146 ug/dL
== END 2023-07-04 07:37 | disposition home or self-care (01) ==
LOC: HO.10HDL 07:36
PROVIDERS: Visit Provider Internal Medicine
DX: D64.9 Anemia, unspecified (principal)
CPT/HCPCS: 36415; 83540; 85025

== ENCOUNTER 2023-08-08 14:11 | Outpatient (AMB) | payer MEDICARE, SELFPAY ==
[2023-08-08 14:15] VITALS: BP 144/80; PULSE 78; BMI 29.5
--- NOTE | 2023-08-08 14:15 | MHC.OFFVIS ---
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 She does not have any history of coronary disease myocardial infarction or cardiomyopathy or in fact any other cardiac issues. A recent echocardiogram had shown moderate to severe aortic stenosis. Patient herself states she mostly feels fine. With severe exertion, she may feel short of breath but otherwise generally doing well. No angina. No other concerns. On meds for hypertension dyslipidemia. Otherwise generally healthy with some comorbidities. History of apparently unconscious episode around 2007 and at that time she was diagnosed with brain aneurysm and underwent clipping at [place]. No further information available and no issues from that end per patient. [facility] Medical History (Updated 08/08/23 @ 14:33 by Julian Henao MD) Aortic stenosis Obesity Hypothyroid Fatty liver History of Ennis's esophagus GERD (gastroesophageal reflux disease) Elevated cholesterol HTN (hypertension) Surgical History Hx of brain surgery History of esophagogastroduodenoscopy (EGD) Hx of colonoscopy History of Yan fundoplication Family History (Updated 08/08/23 @ 14:16 by Nori Tracy) Father Heart problem Social History Patient Tobacco Use Status: Former Tobacco user Quit Date: 30 yr ago Second Hand Smoke Exposure: No Review of Systems Const Denies weakness ENT Denies dizziness Card Denies chest pain, Denies chest pain with activity, Denies syncope, Denies rapid heart rate, Denies pedal edema, Denies edema, Denies leg edema, Denies lightheadedness, Denies palpitations, Denies dyspnea, Denies dyspnea on exertion and Denies orthopnea Resp Denies cough, Denies dyspnea and Denies dyspnea on exertion GI Denies hematochezia and Denies change in stool character Musc Denies abnormal gait, Denies muscle cramps, Denies muscle weakness, Denies numbness, Denies radiating pain into limb and Denies tingling Neuro Denies abnormal gait, Denies dizziness, Denies syncope, Denies numbness, Denies tingling and Denies weakness Endo Denies palpitations Physical Exam Vital Signs: Last Vital Signs Pulse 78 08/08/23 14:15 BP 144/80 H 08/08/23 14:15 BMI result Body Mass Index 29.5 Const General: comfortable and no acute distress Orientation/consciousness: patient oriented x3 HEENT Other: Unremarkable Head: Yes normal to inspection Neck Neck: Yes normal visual inspection Chest Chest palpation & inspection: normal inspection of the chest Resp Auscultation: clear to auscultation bilaterally Cardio Palpation: normal PMI Heart sounds: S1 normal heart sound present, S2 abnormal (Slightly soft), no gallops, Murmur heart sound present systolic III/ and at the right sternal border and no rubs GI Palpation (GI): Soft to palpation Back/Spine/Pelvis Other: unremarkable Skin General skin exam: no rashes or lesions noted Neuro General: patient oriented x3 Extrem General: Yes normal to inspection Psych Mental Status: mental status grossly normal Office Procedures EKG Details: EKG with sinus rhythm at 78/Min; right atrial enlargement; no significant ST-T changes and otherwise unremarkable. [id number], Complete Assessment & Plan Assessment & Plan (1) Non-rheumatic aortic stenosis: Code(s): I35.0 - Nonrheumatic aortic (valve) stenosis Plan In the echocardiogram, there is severe calcification of the aortic valve. Mean gradient across aortic valve was 31 mm Hg with a calculated valve area of 0.9 cm2. Dimensionless index of 0.26. There is also moderate mitral annular calcification with severely dilated left atrium. LVEF 65-70% with slightly decreased strain with peak GLS -15.6%. Findings discussed with patient. At this time, she does not have any overt symptoms. We can recheck another echocardiogram in about 6 months' time and then if she is also symptomatic then potentially workup towards TAVR. She agrees with the plan. In the interim, if any concerns she will contact us. Orders: Orders CA echo transthoracic complete 6 Months I35.0 - Nonrheumatic aortic (valve) stenosis Coding Level of Care Code New Pt Level 4 (46820) Diagnoses Non-rheumatic aortic stenosis I35.0 CPT Codes EKG - CPT: 84255-[id number], Complete ([id number])
== END 2023-08-08 14:39 | disposition home or self-care (01) ==
PROVIDERS: PCP Internal Medicine; Visit Provider Internal Medicine
DX: I35.0 Nonrheumatic aortic (valve) stenosis (principal)
CPT/HCPCS: 93010; 99214

== ENCOUNTER → 2023-08-08 14:11 | Outpatient (BNVA) | payer MEDICARE, SELFPAY | PROVIDERS: PCP Internal Medicine; Visit Provider Internal Medicine | DX: I35.0 Nonrheumatic aortic (valve) stenosis (principal) | CPT/HCPCS: 93005; 99212 ==

== ENCOUNTER 2023-08-29 10:49 | Outpatient (REF) | payer MEDICARE, SELFPAY ==
[2023-08-29 10:51] LABS: MANUAL DIFF FLAG NO
[2023-08-29 11:11] LABS: Basophils Percent Auto 0.5 % (0-2); Eosinophils Absolute Auto 0.1 X10*3/uL (0.0-0.4); Eosinophils Percent Auto 2.9 % (0-4); Hematocrit 34.5 % (37.0-47.0); Hemoglobin 10.9 g/dl (12.0-16.0); Imm Gran Abs Auto 0.01 X10*3/uL (0.00-0.03); Imm Gran Pct Auto 0.2 % (0.0-0.4); Mean Corpuscular HGB Conc 31.6 g/dl (31.0-35.0); Mean Corpuscular Hemoglobin 26.3 pg (27.0-33.0); Mean Corpuscular Volume 83.3 fL (80.0-98.0); Monocytes Absolute Auto 0.4 X10*3/uL (0.1-1.2); Monocytes Percent Auto 10.6 % (2-11); Neutrophils Absolute Auto 1.6 x10*3/uL (2.0-8.3); Neutrophils Percent Auto 37.8 % (45-73); Platelet Count 102 X10*3/uL (160-400); Red Blood Count 4.14 X10*6/uL (4.20-5.50); Red Cell Distribution Width 15.9 % (11.0-16.0); White Blood Count 4.2 X10*3/uL (4.8-10.8)
== END 2023-08-29 10:50 | disposition home or self-care (01) ==
LOC: HO.LNP 10:49
PROVIDERS: Visit Provider Internal Medicine
DX: D64.9 Anemia, unspecified (principal)
CPT/HCPCS: 85025

== ENCOUNTER 2023-11-26 11:06 | Outpatient (REF) | payer MEDICARE, SELFPAY ==
[2023-11-26 11:11] LABS: MANUAL DIFF FLAG NO
[2023-11-26 11:40] LABS: Basophils Percent Auto 1.3 % (0-2); Eosinophils Absolute Auto 0.1 X10*3/uL (0.0-0.4); Eosinophils Percent Auto 2.9 % (0-4); Hematocrit 31.5 % (37.0-47.0); Imm Gran Abs Auto 0.01 X10*3/uL (0.00-0.03); Imm Gran Pct Auto 0.3 % (0.0-0.4); Lymphocytes Absolute Auto 1.3 X10*3/uL (1.2-4.9); Lymphocytes Percent Auto 42.3 % (20-40); Mean Corpuscular HGB Conc 31.7 g/dl (31.0-35.0); Mean Corpuscular Hemoglobin 26.4 pg (27.0-33.0); Mean Corpuscular Volume 83.1 fL (80.0-98.0); Mean Platelet Volume 12.3 fL (9.4-12.3); Monocytes Absolute Auto 0.4 X10*3/uL (0.1-1.2); Monocytes Percent Auto 11.6 % (2-11); Neutrophils Absolute Auto 1.3 x10*3/uL (2.0-8.3); Neutrophils Percent Auto 41.6 % (45-73); Red Blood Count 3.79 X10*6/uL (4.20-5.50); Red Cell Distribution Width 15.3 % (11.0-16.0); White Blood Count 3.1 X10*3/uL (4.8-10.8)
[2023-11-26 11:41] LABS: Platelet Count 90 X10*3/uL (160-400)
[2023-11-26 11:43] LABS: Appearance Urine Clear; Color Urine Yellow; Glucose Urine UA Negative (Negative); Leukocyte Esterase Urine Small (1+) (Negative); Nitrite Urine Negative (Negative); UMIC TRIGGER UACC YES; Urine Blood Negative (Negative); Urine Ketones Negative (Negative); Urine Protein Negative (Neg-Trace)
[2023-11-26 11:54] LABS: Estimated Average Glucose 94 mg/dL; Hemoglobin A1c % 4.9 % (<6.0)
[2023-11-26 12:02] LABS: Bacteria Urine None Seen (None Seen); Hyaline Casts Urine 0-2 /LPF (0-2); RBC Urine 0-2 /HPF (0-2); UACC Culture Trigger YES; WBC Urine 0-5 /HPF (0-5)
[2023-11-26 12:15] LABS: Creatinine Urine 146.01 mg/dL; Microalbum/Creatinine Ratio Ur 8.2 ug/mg cr (<30)
[2023-11-26 12:20] LABS: Alanine Aminotransferase 12 U/L (0-31); Albumin Level 3.8 g/dL (3.5-5.0); Alkaline Phosphatase 52 U/L (39-117); Anion Gap 10 (12-20); Aspartate Amino Transferase 21 U/L (5-31); Bilirubin Total 0.5 mg/dL (0.0-1.0); Blood Urea Nitrogen 14 mg/dL (9-16); Calcium 9.5 mg/dL (8.4-10.2); Carbon Dioxide 27 mmol/L (22-29); Chloride 108 mmol/L (96-108); Cholesterol 101 mg/dL (<200); Estimated Glomerular Filt Rate > 60; Glucose Fasting 103 mg/dL (60-99); HDL Cholesterol 45 mg/dL (>40); Iron 25 mcg/dL (30-160); LDL Cholesterol Calculated 43 mg/dL (<100); Percent Iron Saturation 8 % (15-50); Potassium 4.1 mmol/L (3.3-5.1); Sodium 141 mmol/L (135-145); Total Iron Binding Capacity 308 mcg/dL (228-428); Total Protein 6.3 g/dL (6.5-8.0); Triglycerides 65 mg/dL (<150); Unsaturated Iron Binding 283 ug/dL; Vitamin D 25-OH Total 14.5 ng/mL (>30)
== END 2023-11-26 11:07 | disposition home or self-care (01) ==
LOC: HO.LNP 11:06
PROVIDERS: Visit Provider Internal Medicine
DX: Z00.00 Encounter for general adult medical examination without abnormal findings (principal); I10 Essential (primary) hypertension; R73.09 Other abnormal glucose; E78.00 Pure hypercholesterolemia, unspecified; D69.6 Thrombocytopenia, unspecified; E55.9 Vitamin D deficiency, unspecified; R82.90 Unspecified abnormal findings in urine
CPT/HCPCS: 80053; 80061; 81001; 82043; 82306; 82570; 83036; 83540; 85025; 87086

== ENCOUNTER → 2024-01-27 08:39 | Outpatient (REF) | payer MEDICARE, SELFPAY ==
--- NOTE | 2024-01-27 08:42 | CA_ITS ---
Transthoracic Echocardiogram Patient (Last, First, Middle): Mary Lou Celestin S Gender: Female Date of : 1945 Age: 78 Procedure Date: 01/27/2024 Procedure Type: Transthoracic Echocardiogram Location: OP Height: 165. cm Weight: 82.56 kg BSA: 1.90 m2 Heart Rate: 71 bpm BP: 140 / 75 mmHg Senior Specialist: ANGEL Referring MD: Julian Henao MD Symptoms: I35.0 - Nonrheumatic aortic (valve) stenosis Study Quality: Fair ECG Rhythm: Sinus Conclusions: - The left ventricular systolic function is normal. The calculated ejection fraction is 70% by biplane method. - There is moderate to severe aortic valve stenosis. - There is severe mitral annular calcification. Findings Left Ventricle Normal left ventricular cavity size. There is normal left ventricular wall thickness. The left ventricular systolic function is normal. The calculated ejection fraction is 70% by biplane method. There is no evidence of regional wall motion abnormalities. Evidence suggests grade I (mild) diastolic dysfunction. Right Ventricle Normal right ventricular cavity size and systolic function. Atria The left atrium is mildly dilated. The right atrium is normal in size. Aortic Valve There is severe calcification of the aortic valve. There is moderate to severe aortic valve stenosis. The peak aortic velocity is 3.78 m/s with a calculated peak gradient of 57 mmHg. The mean gradient is 35 mmHg. The aortic valve area is 1.07 cm2. There is trace (trivial) aortic valve regurgitation. Dimensionless index 0.28. Mitral Valve There is severe mitral annular calcification. There is no mitral valve regurgitation. Mildly elevated gradients across the mitral valve could be related to increased stroke volume. Doubt any significant mitral stenosis. Pulmonic Valve The pulmonic valve is likely normal. Tricuspid Valve There is trace tricuspid valve regurgitation. There is no evidence of pulmonary hypertension. Great Vessels The asc aorta and aortic arch are normal in size. Venous The inferior vena cava is normal in size and collapses greater than 50% with inspiration. Pericardium/Pleural There is no evidence of pericardial effusion. Prior Study Comparison No significant change compared to prior study dated: 06/05/2023. Measurements 2D Linear Measurements IVSd: 1.00 0.6-0.9/0.6-1.0 cm LVIDd: 4.07 3.9-5.3/4.2-5.9 cm LVIDd Index: 2.14 2.4-3.2/2.2-3.1 cm/m2 LVIDs: 2.03 2.0-3.6 cm LVPWd: 0.91 0.7-1.1 cm LA Diam: 3.90 2.7-3.8/3.0-4.0 cm LAIDs Index: 2.05 1.5-2.3 cm/m2 LV Mass: 151.84 67-162/88-224 g LV Mass Index: 79.92 43-95/49-115 g/m2 LVOT Diam: 2.20 3.0+(-)1.3 cm 2D Systolic Function EF 4C: 70.90 >55% EF 2C: 68.30 >55% EF BiP: 70.20 >55% Mitral Valve MV VTI: 0.45 MV Pk Wilian: 1.99 MV Mn Wilian: 1.11 MV Pk Grad: 16.00 MV Mn Grad: 6.00 MV Pk E: 1.12 MV PK A: 1.78 MV Decel Time: 428.00 E/A: 0.60 E'Lateral: 3.15 E'Medial: 3.15 E/E' Med: 35.60 E/E' Lat: 35.60 PHT: 125.00 MVA PHT: 1.76 MVA Continuity: 2.23 Decel [place]: 2.63 Aortic Valve AoV Pk Wilian: 3.78 AoV Mn Wilian: 2.83 AoV VTI: 0.94 AoV Pk Grad: 57.00 Aov Mn Grad: 35.00 KATIE Cont.VTI: 1.07 LVOT LVOT Pk Wilian: 1.05 LVOT Mn Wilian: 0.74 LVOT VTI: 0.26 LVOT Pk Grad: 4.00 LVOT Mn Grad: 2.00 LVOT Diam: 2.20 LVOT Area: 3.80 Diastolic Function MV Pk E: 1.12 MV Pk A: 1.78 E/A: 0.60 E'Medial: 3.15 E/E' Med: 35.60 E' Laterial: 3.15 E/E' Lat: 35.60 Right Ventricle TAPSE (mm): 26.90 TVS' Wilian: 16.60 Tricuspid Valve TR Pk Wilian: 1.98 TR Pk Grad: 16.00 RA Press: 3.00 RVSP: 19.00 Great Vessels Aorta Sinus of Valsalva: 3.40 2.0-3.5 cm Ao Asc: 3.60 2.1-3.4 cm Ao Arch: 3.00 Pulmonary Valve PV Pk Wilian: 0.79 Peak PV Grad: 2.00 Updated in Other Vendor System with Status of Final Julian Henao MD electronically signed on 01/28/2024 9:28:22 AM with status of Final
== END ==
LOC: HO.CARD 08:39
PROVIDERS: PCP Internal Medicine; Visit Provider Internal Medicine
DX: I35.0 Nonrheumatic aortic (valve) stenosis (principal)
CPT/HCPCS: 93306

== ENCOUNTER → 2024-01-27 08:42 | Outpatient (BNV) | payer MEDICARE, SELFPAY | PROVIDERS: PCP Internal Medicine; Visit Provider Internal Medicine | DX: I35.2 Nonrheumatic aortic (valve) stenosis with insufficiency (principal); I35.8 Other nonrheumatic aortic valve disorders; I34.81 Nonrheumatic mitral (valve) annulus calcification | CPT/HCPCS: 93306 ==

== ENCOUNTER 2024-02-05 08:57 | Outpatient (AMB) | payer MEDICARE, SELFPAY ==
[2024-02-05 09:03] VITALS: BP 132/68; PULSE 78; BMI 29.2
--- NOTE | 2024-02-05 09:03 | A.OFFVIS_ITS ---
Vital Signs 02/05/24 09:03 Height 5 ft 6 in Weight 180 lb 12.465 oz BMI 29.2 BP 132/68 Blood Pressure Location Lt brachial Position Sitting Pulse 78 Pulse Source Pulse Oximeter Intake Visit Reasons: 6 mth fu after echo Allergies No Known Allergies [No Known Allergies*] Allergy (Verified 08/08/23 14:15) Medication List - Last Reconciled 02/05/24 by Julian Henao MD atorvastatin 20 mg PO DAILY cholecalciferol (vitamin D3) (Vitamin D3) 50 mcg PO DAILY levothyroxine 100 mcg PO QAM omeprazole 40 mg PO DAILY ursodiol 1,000 mg PO DAILY valsartan-hydrochlorothiazide 160-12.5 mg 1 tab PO DAILY HPI Comments Details: Mary Lou returns for follow-up. In the past, she was seen regarding aortic stenosis. She does not have any history of coronary disease or myocardial infarction or cardiomyopathy or any other cardiac issues. Patient herself has no symptoms whatsoever. She denies any angina or any other cardiac symptoms like shortness of breath or dizziness. She takes medication for hypertension and dyslipidemia. Otherwise, history of unconscious episode around 2007 and at that time she was diagnosed with brain aneurysm and underwent clipping at [place]. No further in formation available. [facility] Medical History (Updated 02/05/24 @ 09:32 by Julian Henao MD) Aortic stenosis Obesity Hypothyroid Fatty liver History of Ennis's esophagus GERD (gastroesophageal reflux disease) Elevated cholesterol HTN (hypertension) Surgical History Hx of brain surgery History of esophagogastroduodenoscopy (EGD) Hx of colonoscopy History of Yan fundoplication Family History (Updated 08/08/23 @ 14:16 by Nori Tracy) Father Heart problem Social History Patient Tobacco Use Status: Former Tobacco user Second Hand Smoke Exposure: No Review of Systems Const Denies weakness ENT Denies dizziness Card Denies chest pain, Denies chest pain with activity, Denies syncope, Denies rapid heart rate, Denies pedal edema, Denies edema, Denies leg edema, Denies lightheadedness, Denies palpitations, Denies dyspnea, Denies dyspnea on exertion and Denies orthopnea Resp Denies cough, Denies dyspnea and Denies dyspnea on exertion GI Denies hematochezia and Denies change in stool character Musc Denies abnormal gait, Denies muscle cramps, Denies muscle weakness, Denies numbness, Denies radiating pain into limb and Denies tingling Neuro Denies abnormal gait, Denies dizziness, Denies syncope, Denies numbness, Denies tingling and Denies weakness Endo Denies palpitations Physical Exam Vital Signs: Last Vital Signs Pulse 78 02/05/24 09:03 BP 132/68 02/05/24 09:03 BMI result Body Mass Index 29.2 Const General: comfortable and no acute distress Orientation/consciousness: patient oriented x3 HEENT Other: Unremarkable Head: Yes normal to inspection Neck Neck: Yes normal visual inspection Chest Chest palpation & inspection: normal inspection of the chest Resp Auscultation: clear to auscultation bilaterally Cardio Palpation: normal PMI Heart sounds: S1 normal heart sound present, S2 abnormal (soft), no gallops, Murmur heart sound present systolic III/ and at the right sternal border and no rubs GI Palpation (GI): Soft to palpation Back/Spine/Pelvis Other: unremarkable Skin General skin exam: no rashes or lesions noted Neuro General: patient oriented x3 Extrem General: Yes normal to inspection Psych Mental Status: mental status grossly normal Assessment & Plan Assessment & Plan (1) Non-rheumatic aortic stenosis: Code(s): I35.0 - Nonrheumatic aortic (valve) stenosis Category: Medical (2) Mitral annular calcification: Code(s): I34.81 - Nonrheumatic mitral (valve) annulus calcification Category: Medical Plan In the echocardiogram, LVEF is 70%. There is severe calcification of the aortic valve. Mean gradient across aortic valve was 35 mm Hg, peak 57 mm Hg with a calculated valve area of 1.07 sq cm. Dimensionless index of 0.28. Trace aortic regurgitation. Overall, suspected moderate to severe aortic stenosis. Severe mitral annular calcification. Patient herself has absolutely no symptoms. Cardinal symptoms of aortic stenosis discussed. In case she develops this, advised her to contact us imme diately. With regard to mitral annular calcification, there is no significant valvular dysfunction. Otherwise, follow-up in 6 months with another echocardiogram. Orders: Orders CA echo transthoracic complete 6 Months I35.0 - Nonrheumatic aortic (valve) stenosis Coding Level of Care Code New Pt Level 4 (37615) Diagnoses Non-rheumatic aortic stenosis I35.0 Mitral annular calcification I34.81
== END 2024-02-05 09:26 | disposition home or self-care (01) ==
PROVIDERS: PCP Internal Medicine; Visit Provider Internal Medicine
DX: I35.0 Nonrheumatic aortic (valve) stenosis (principal); I34.81 Nonrheumatic mitral (valve) annulus calcification
CPT/HCPCS: 99214

== ENCOUNTER → 2024-02-05 08:57 | Outpatient (BNVA) | payer MEDICARE, SELFPAY | PROVIDERS: PCP Internal Medicine; Visit Provider Internal Medicine | DX: I35.0 Nonrheumatic aortic (valve) stenosis (principal); I34.81 Nonrheumatic mitral (valve) annulus calcification | CPT/HCPCS: 99212 ==

== ENCOUNTER 2024-02-24 08:12 | Outpatient (REF) | payer MEDICARE, SELFPAY ==
--- NOTE | ~2024-02-24 | US_ITS ---
EXAMINATION: MM DIAGNOSTIC DIGITAL BREAST TOMOSYNTHESIS, BILATERAL US BREAST LIMITED, LEFT MAMMOGRAPHY: CLINICAL INFORMATION: Due for screening. Upon arriving for screening patient informed technologist of a palpable focus x1 month with mild tenderness in the far upper outer quadrant left breast. This finding is marked with a lead marker by the technologist. History of breast CA in paternal and maternal grandmother, age unknown, however patient states older . COMPARISON: Mammography: 02/18/2023, 02/12/2022, 02/08/2021, 02/03/2020, and dating back to 2014. TECHNIQUE: Digital breast tomosynthesis is performed in both the craniocaudal and mediolateral oblique views along with computer-aided detection (CAD). Synthesized 2D images are generated from the tomosynthesis. In addition to standard views, added full field 3-D right CC view, left exaggerated 3-D lateral CC view, full field 3-D left ML view, and spot compression 3-D left MLO and CC views were obtained. FINDINGS: The breasts are almost entirely fatty (ACR BI-RADS breast composition Category a). There are no suspicious masses, suspicious grouped calcifications, or areas of architectural distortion in either breast. The parenchymal pattern is stable from prior exams. There is no skin or axillary abnormality. No mammographic abnormality is present in the area of palpable concern far upper outer left breast in the area of the palpable BB marker. We will evaluate this region with ultrasound. ULTRASOUND: CLINICAL INFORMATION: Palpable abnormality far upper outer quadrant left breast. COMPARISON: None relevant. TECHNIQUE: Targeted sonographic evaluation left breast was performed using a high frequency linear transducer. Left breast was evaluated from 10:00 to 2:00 to include the area of palpable concern. Selected archived documentation. FINDINGS: LEFT BREAST: There is predominantly fatty breast tissue. No suspicious mass is seen. There is no pathologic acoustic shadowing. No cystic abnormality. No architectural abnormalities. No ultrasonographic correlate to the focus of palpable concern. US/US breast LT limited mamm only IMPRESSION: There are no findings in either breast suspicious for malignancy. Area of palpable concern in the upper outer axillary tail region left breast shows no mammographic or sonographic correlate. Recommend clinical management and follow-up. Otherwise, recommend the patient return to routine annual screening. OVERALL ASSESSMENT: Mammography: BI-RADS 1 - Negative Ultrasound: BI-RADS 1 - Negative RECOMMENDATION: 1. Patient should be managed based on the clinical impression. 2. Otherwise, routine annual screening mammography. This patient's information was entered into a reminder system with a target due date for their next mammogram. Electronically signed by: Anthony Kelly MD 02/24/2024 09:53 AM EDT
== END 2024-02-24 08:13 | disposition home or self-care (01) ==
LOC: HO.MAMMO 08:12
PROVIDERS: PCP Internal Medicine; Visit Provider Internal Medicine
DX: N64.4 Mastodynia (principal)
CPT/HCPCS: 76642; 77062; 77066

== ENCOUNTER → 2024-02-24 08:30 | Outpatient (BNV) | payer MEDICARE, SELFPAY | PROVIDERS: PCP Internal Medicine; Visit Provider Radiology Diagnostic Radiology | DX: N64.4 Mastodynia (principal) | CPT/HCPCS: 76642; 77066; G0279 ==

== ENCOUNTER 2024-05-28 11:11 | Outpatient (REF) | payer MEDICARE, SELFPAY ==
[2024-05-28 11:14] LABS: MANUAL DIFF FLAG NO
[2024-05-28 11:41] LABS: Basophils Percent Auto 0.6 % (0-2); Eosinophils Absolute Auto 0.1 X10*3/uL (0.0-0.4); Hematocrit 30.5 % (37.0-47.0); Hemoglobin 9.6 g/dl (12.0-16.0); Imm Gran Abs Auto 0.01 X10*3/uL (0.00-0.03); Imm Gran Pct Auto 0.3 % (0.0-0.4); Lymphocytes Absolute Auto 1.4 X10*3/uL (1.2-4.9); Lymphocytes Percent Auto 39.7 % (20-40); Mean Corpuscular HGB Conc 31.5 g/dl (31.0-35.0); Mean Corpuscular Hemoglobin 27.4 pg (27.0-33.0); Mean Corpuscular Volume 87.1 fL (80.0-98.0); Mean Platelet Volume 12.2 fL (9.4-12.3); Monocytes Absolute Auto 0.4 X10*3/uL (0.1-1.2); NRBC Pct Auto 0.6 /100WBC (0.0-0.2); Neutrophils Absolute Auto 1.6 x10*3/uL (2.0-8.3); Neutrophils Percent Auto 46.4 % (45-73); Platelet Count 102 X10*3/uL (160-400); Red Cell Distribution Width 13.8 % (11.0-16.0); White Blood Count 3.5 X10*3/uL (4.8-10.8)
--- OUTSIDE RECORDS SUMMARY | 2024-05-28 11:55 | XMS_ITS ---
Author Organization Christian Lewis MD Address [address] [place], [place] [id number] Care Team Providers Care Nurse'S Companion Name Role Phone Christian Lewis Primary Care Provider [phone] RESULTS Component Value Reference Range Notes Complete Blood Count Auto Di ff (Not yet reviewed by provider) Interpretation: Performing Lab:[facility], [address] [place] [id number] Notes/Report: White Blood Count 3.5 4.8-10.8 X10*3/uL Red Blood Count 3.50 4.20-5.50 X10*6/uL Hemoglobin 9.6 12.0-16.0 g/dl Hematocrit 30.5 37.0-47.0 % Mean Corpuscular Volume 87.1 80.0-98.0 fL Mean Corpuscular Hemoglobin 27.4 27.0-33.0 pg Mean Corpuscular HGB Conc 31.5 31.0-35.0 g/dl Red Cell Distribution Width 13.8 11.0-16.0 % Platelet Count 102 160-400 X10*3/uL Mean Platelet Volume 12.2 9.4-12.3 fL Neutrophils Percent Auto 46.4 45-73 % Imm Gran Pct Auto 0.3 0.0-0.4 % Lymphocytes Percent Auto 39.7 20-40 % Monocytes Percent Auto 11.0 2-11 % Eosinophils Percent Auto 2.0 0-4 % Basophils Percent Auto 0.6 0-2 % NRBC Pct Auto 0.6 0.0-0.2 /100WBC Neutrophils Absolute Auto 1.6 2.0-8.3 x10*3/u L Imm Gran Abs Auto 0.01 0.00-0.03 X10*3/uL Lymphocytes Absolute Auto 1.4 1.2-4.9 X10*3/u L Monocytes Absolute Auto 0.4 0.1-1.2 X10*3/uL Eosinophils Absolute Auto 0.1 0.0-0.4 X10*3/u L Basophils Absolute Auto 0.0 0.0-0.2 X10*3/uL NRBC Abs Auto 0.020 0.0-0.012 X10*3/uL REASON FOR VISIT fasting lipids,CBC, iron profile Encounters Encounter Location Date Provider Diagnosis Christian Lewis MD [address] [place] [phone] 05/28/2024 Christian Lewis Iron deficiency E61. 1 ; Thrombocytopenia D69.6 and Acquired hypothyroidism E03.9 ASSESSMENTS Encounter Date Diagnosis Assessment Notes Treatment Notes Treatment Clinical Notes 05/28/2024 Iron deficiency (ICD -10 - E61.1) 05/28/2024 Thrombocytopenia (ICD-10 - D69.6) 05/28/2024 Acquired hypothyroid ism (ICD-10 - E03.9) PLAN OF TREATMENT Pending Test Test Name Order Date Complete Blood Count Auto Diff IRON PROFILE 05/28/2024 TSH reflex Free T4 05/28/2024 Next Appt Details Provider Name:Christian taylor, 06/04/2024 10:15:00 AM, [address] [place] [address], [address], [phone], Provider Name:Christian taylor, 11/27/2024 07:15:00 AM, [address] [place] [address], [phone], Provider Name:Christian taylor, 12/04/2024 09:30:00 AM, [address] [place] [address] [place], [phone],
--- OUTSIDE RECORDS SUMMARY | 2024-05-28 11:55 | XMS_ITS ---
Author Organization Christian Lewis MD Address [address] [place] [phone] Care Team Providers Care Corrugated Box Machine Operator Name Role Phone Christian Lewis Primary Care Provider REASON FOR VISIT flu injection IMMUNIZATIONS Vaccine Route Administration Date Status Comme nts Influenza High Dose IM Intramuscular 02/04/2024 Administer ed Encounters Encounter Location Date Provider Diagnosis Christian Lewis MD [facility] [address] [place] [phone] 02/04/2024 Christian Lewis Encounter for immunization Z23 ASSESSMENTS Encounter Date Diagnosis Assessment Notes Treatment Notes Treatment Clinical Notes 02/04/2024 Encounter for immunization (ICD-10 - Z23) PLAN OF TREATMENT Next Appt Details Provider Name:Christian taylor, 06/04/2024 10:15:00 AM, [facility], [address], [phone], Provider Name:Christian taylor, 11/27/2024 07:15:00 AM, [address] [place] [address], [address], [phone], Provider Name:Christian taylor, 12/04/2024 09:30:00 AM, [address] [place] [address], [address], [phone],
--- OUTSIDE RECORDS SUMMARY | 2024-05-28 11:55 | XMS_ITS ---
Author Organization Christian Lewis MD Address [address] [place], [place] [phone] Care Team Providers Care Electric Switch Tester Name Role Phone Christian Lewis Primary Care Provider [phone] ALLERGIES Allergen (clinical drug ingredient) Drug/Non Drug Allergy documented on EMR Reaction Allergy Type Onset Date Status lisinopril Lisinopril cough Drug Allergy Activ e RESULTS Component Value Reference Range Notes Occult Blood, Stool, Guaiac Reviewed date:12/03/2023 01:27:30 PM Interpretation:Negative Performing Lab: Notes/Report: Negative Occult Blood, Stool, Guaiac Neg REASON FOR VISIT ANNUAL EXAM, CBACK VIT D MEDICATIONS Medication SIG (Take, Route, Frequency, Duration) Notes Start Date End Date Status Valsartan-hydroCHLOROthiazid e 160-12.5 MG TAKE 1 TABLET BY MOUTH EVERY DAY Active Atorvastatin Calcium 20 MG TAKE 1 TABLET BY MOUTH EVERY DAY Active Ursodiol 500 MG TAKE 2 TABLETS BY MO UTH EVERY MORNING AND 1 TAB EVERY EVENING 90 for 90 Active Vitamin D 2000 UNIT Orally Active Omeprazole 40 MG 1 capsule Orally Onc e a day Active Levothyroxine Sodium 100 MCG TAKE 1 TABL ET BY MOUTH EVERY DAY IN THE MORNING ON EMPTY STOMACH Active Ferrous Sulfate 325 (65 Fe) MG 1 tablet Orally Once a day 02/23/2021 Active SOCIAL HISTORY Tobacco Use: Social History Observation Description Date Details (start date - stop date) Former Smoker NA - NA Sex Assigned At : Social History Observation Description Sex Assigned At Unknown Tobacco Use/Smoking Question Answer Notes Patient is a former smoker How long has it been since y ou last smoked? > 10 years Additional Findings: Tobacco Non-User Fo rmer smoker, currently using no form of tobacco Alcohol Screen Question Answer Notes Did you have a drink containing alcohol in the p ast year? No Points 0 Interpretation Negative VITAL SIGNS BMI 30.05 kg/m2 12/03/2023 Blood pressure systolic 112 mm Hg 12/03/19 24 Blood pressure diastolic 60 mm Hg 024 Height 65.25 in 12/03/2023 Weight 182 lbs 12/03/2023 weight is down 3 pounds [facility] 09-05-23 Encounters Encounter Location Date Provider Diagnosis Christian Lewis MD [address] [place] [address] [address] [place], [place] [phone] 12/03/2023 Christian Lewis Vitamin D deficiency E55.9 ; Thrombocytopenia D69.6 ; Essential hypertension I10 ; Barretts esophagus with dysplasia K22.719 ; Iron deficiency E61.1 ; Acquired hypothyroidism E03.9 ; Annual physical exam Z00.00 ; Prediabetes R73.09 ; Pure hypercholesterolemia E78.00 ; Reflux esophagitis K21.00 ; Colon cancer screening Z12.11 and Encounter for screening for depression Z13.31 ASSESSMENTS Encounter Date Diagnosis Assessment Notes Treatment Notes Treatment Clinical Notes 12/03/2023 Vitamin D deficiency (ICD-10 - E55.9) instructed patient to start taking med more regularly 12/03/2023 Thrombocytopenia (IC D-10 - D69.6) stable, will continue to monitor 12/03/2023 Essential hypertensi on (ICD-10 - I10) stable, will continue curren regiment and will continue to monitor 12/03/2023 Barretts esophagus w ith dysplasia (ICD-10 - K22.719) followed by dr cheema 12/03/2023 Iron deficiency (ICD -10 - E61.1) to start taking iron daily 12/03/2023 Acquired hypothyroid ism (ICD-10 - E03.9) stable, will continue current regiment 12/03/2023 Annual physical exam (ICD-10 - Z00.00) labs reviewed and dicussed with patient 12/03/2023 Prediabetes (ICD-10 - R73.09) stable, no need for medication at this time 12/03/2023 Pure hypercholestero lemia (ICD-10 - E78.00) stable, will continue curren regiment 12/03/2023 Reflux esophagitis ( ICD-10 - K21.00) stable, will continue curren t regiment 12/03/2023 Colon cancer screeni ng (ICD-10 - Z12.11) guaiac negative 12/03/2023 Encounter for screen ing for depression (ICD-10 - Z13.31) negative screen PLAN OF TREATMENT Medication Medication Name Sig Start Date Stop Date Notes Valsartan-hydroCHLOROthiazid e 160-12.5 MG TAKE 1 TABLET BY MOUTH EVERY DAY Atorvastatin Calcium 20 MG TAKE 1 TABLET BY MOUTH EVERY DAY Vitamin D 2000 UNIT Orally Omeprazole 40 MG 1 capsule Orally Onc e a day Levothyroxine Sodium 100 MCG TAKE 1 TABL ET BY MOUTH EVERY DAY IN THE MORNING ON EMPTY STOMACH Treatment Notes Assessment Notes Vitamin D deficiency instructed patient to start taking med more regularly Thrombocytopenia stable, will continu e to monitor Essential hypertension stable, will cont inue curren regiment and will continue to monitor Barretts esophagus with dysplasia follow ed by dr cheema Iron deficiency to start taking iron daily Acquired hypothyroidism stable, will con tinue current regiment Annual physical exam labs reviewed and d icussed with patient Prediabetes stable, no need for medication at this time Pure hypercholesterolemia stable, will c ontinue curren regiment Reflux esophagitis stable, will continu e curren t regiment Colon cancer screening guaiac negative Encounter for screening for depression n egative screen Pending Test Test Name Order Date Complete Blood Count Auto Diff 4 IRON PROFILE 12/03/2023 TSH reflex Free T4 12/03/2023 Next Appt Details Follow Up: 6 Months, Reason: Provider Name:Christian taylor, 06/04/2024 10:15:00 AM, [address] [place] [address], [address], [place], [place], [phone], Provider Name:Christian taylor, 11/27/2024 07:15:00 AM, [address] [place] [address], [address], [place], [place], [phone], Provider Name:Christian Martin brandon, 12/04/2024 09:30:00 AM, [address], [address], [place], [place], [phone], Progress Notes * Examination Category Sub-Category Detail Notes General Examination GENERAL APPEARANCE: well dev eloped, well nourished, in no acute distress HEAD: normocephalic, atrau matic EYES: pupils equal, round, reactive to light and accommodation, sclera non- icteric EARS: normal THROAT: clear NECK/THYROID: neck supple, full ra nge of motion, no cervical lymphadenopathy, no bruits, abnormal with murmer radiating into carotid on rt HEART: regular rate and rhy thm, S1, S2 normal, , abnormal with loud 3/6 uriah over entire chest and into abdomen LUNGS: clear to auscultatio n bilaterally ABDOMEN: soft, nontender, non distended, bowel sounds present, normal, no organomegaly , no masses palpable NEUROLOGIC: nonfocal, motor stre ngth normal upper and lower extremities, sensory exam intact SKIN: warm and dry, no jose picious lesions EXTREMITIES: no clubbing, cyanosi s, or edema BREASTS: No mass, no lump RECTAL EXAM: no masses palpable, stool guaiac negative FEMALE GENITOURINARY: not done ORAL CAVITY: mucosa moist History and Physical Notes * HPI (History of Present Illness) Category Sub-Category Detail Notes Depression Screening PHQ-9 Little inte rest or pleasure in doing things: Not at all Feeling down, depressed, or hopeless: No t at all Trouble falling or staying asleep, or sl eeping too much: Not at all Feeling tired or having little energy: N ot at all Poor appetite or overeating: Not at all Feeling bad about yourself o r that you are a failure, or have let yourself or your family down: Not at all Trouble concentrating on thi ngs, such as reading the newspaper or watching television: Not at all Moving or speaking so slowly that other people could have noticed; or the opposite, being so fidgety or restless that you have been moving around a lot more than usual: Not at all Thoughts that you would be b meghan off or of hurting yourself in some way: Not at all Total Score: 0 SDOH Questions SDOH Questions In the past year have you been worried about losing housing?: No In the past year have you or any family members you live with been unable to get any of the following when it was really needed? Check all that apply:: None Fall Risk History Have you had any falls with injury in the past year?: No Have you had two or more falls in the year?: No Communication Needs Communication Needs Does the patient have a hearing impairment: No Does the patient have a vision impairmen t?: Yes ?If yes, what is the vision impairment?: Glasses Does the patient have a cognition impair ment?: No
--- OUTSIDE RECORDS SUMMARY | 2024-05-28 11:56 | XMS_ITS | Patient Health Record ---
Author Organization [facility] Address [address] [place] [phone] Care Team Providers Care Mercury Recoverer Name Role Phone Christian Lewis MD Primary Care Provider Gilberto Hollingsworth [phone] ALLERGIES Allergen (clinical drug ingredient) Drug/Non Drug Allergy documented on EMR Reaction Allergy Type Onset Date Status lisinopril Lisinopril cough Drug Allergy Activ e REASON FOR REFERRAL No Information MEDICATIONS Medication SIG (Take, Route, Frequency, Duration) Notes Start Date End Date Status Vitamin D 2000 UNIT 1 tablet Orally Once a day Active Omeprazole 40 MG TAKE 1 CAPSULE BY MO [facility] TWICE A DAY for 90 Active Ursodiol 500 MG TAKE 2 TABLETS BY MO UT EVERY MORNING AND TAKE 1 TABLET BY MOUTH EVERY EVENING for 90 Active Iron (Ferrous Sulfate) 325 (65 Fe) MG 1 tablet Orally Once a day Active Valsartan-hydroCHLOROthiazid e 160-12.5 MG 1 tablet Orally Once a day Active Levothyroxine Sodium 100 MCG 1 tablet in the morning on an empty stomach Orally Once a day Active Atorvastatin Calcium 20 MG 1 tablet Oral ly Once a day Active IMMUNIZATIONS Vaccine Route Administration Date Status Comme nts Influenza Unknown 02/26/2018 Administered Influenza Unknown 03/20/2019 Administered Influenza Unknown 02/17/2021 Administered Influenza Unknown 02/12/2023 Administered Influenza Unknown 03/28/2018 Refused SOCIAL HISTORY Tobacco Use: Social History Observation Description Date Details (start date - stop date) Former Smoker NA - NA Sex Assigned At : Social History Observation Description Sex Assigned At Unknown Tobacco Use/Smoking Question Answer Notes Patient is a former smoker How long has it been since you last smoked? 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) Active confirmed 1572741460586221 Problem Diverticulosis of large intestine without perforation or abscess without bleeding (K57.30) Active confirmed Diverticul ar disease of colon (176996856) Problem Other cirrhosis of liver (K74.69) Active confirmed 70051747 Problem Encounter for screening for malignant neoplasm of rectum (Z12.12) Active confirmed Screening for malignant neoplasm of rectum (204262444) Problem Duodenitis (K29.80) Active confirmed Du odenitis (64174760) Problem Gastroesophageal reflux disease (K21.9) Active confirmed Gastroesophagea l reflux disease (064478614) Problem Iron deficiency anemia (D50.9) Active confirmed Iron deficien cy anemia (57417417) Problem Gastroesophageal reflux disease without esophagitis (K21.9) Active confirmed 624365748 Problem Elevated liver enzymes (R74.8) Active confirmed 272146032 Problem Barretts esophagus without dysplasia (K22.70) Active confirmed 002679303 Problem Fatty liver (K76.0) Active confirmed 19 5130754 Problem Gastric polyp (K31.7) Active confirmed Gastric polyp (96261972) Problem Gastric polyps (K31.7) Active confirmed Benign neoplasm of stomach (19276625) Problem Elevated alpha fetoprotein (R77.2) Active confirmed 961398208 Problem Gastritis (K29.70) Active confirmed Gas tritis (9439214) Problem Iron deficiency anemia, unspecified iron deficiency anemia type (D50.9) Active confirmed 95300503 Problem 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) Active confirmed Ennis esophag us (887463976) Problem Barretts esophagus with low grade dysplasia (K22.710) Active confirmed 8931586806920080 Problem Liver fibrosis (K74.0) Active confirmed 08367476 Problem Positive MANDY (antinuclear antibody) (R76.8) Active confirmed 421282759 Problem Liver fibrosis (K74.00) Active confirmed 04535984 Encounters Encounter Location Date Provider Diagnosis [facility] [place] [address] [place] [phone] 05/29/2023 Gilberto Hernandez Encounter for screen ing colonoscopy Z12.11 ; Personal history of colonic polyps Z86.010 ; Diverticulosis of large intestine without perforation or abscess without bleeding K57.30 and Other hemorrhoids K64.8 [facility] [address] [place] [address] 03/20/2024 Gilberto Hernandez [facility] [address] [place] [address] 03/17/2024 Gilberto Hernandez ASSESSMENTS Encounter Date Diagnosis Assessment Notes Treatment Notes Treatment Clinical Notes 05/29/2023 Encounter for screening colonoscopy (ICD-10 - Z12.11) 05/29/2023 Personal history of colonic polyps (ICD-10 - Z86.010) 05/29/2023 Diverticulosis of large intestine without perforation or abscess without bleeding (ICD-10 - K57.30) 05/29/2023 Other hemorrhoids (ICD-10 - K64.8) PLAN OF TREATMENT Pending Test Test Name Order Date Hemoccult Cards (Non-Screening) 03/14/20 21 LIVER PROFILE 03/27/2022 LIVER PROFILE 02/12/2023 LIVER PROFILE 08/10/2018 LIVER PROFILE 03/14/2021 LIVER PROFILE 10/17/2019 IRON + IBC (FE) 08/08/2021 CBC w DIFF 08/10/2018 CBC w DIFF 10/17/2019 CBC w DIFF 08/08/2021 CBC w DIFF 03/27/2022 CBC w DIFF 02/12/2023 PROTHROMBIN TIME (PT, INR) 03/14/2021 PROTHROMBIN TIME (PT, INR) 08/10/2018 PROTHROMBIN TIME (PT, INR) 10/17/2019 PROTHROMBIN TIME (PT, INR) 03/27/2022 ALPHA-FETOPROTEIN,TUMOR MARKER 3 ALPHA-FETOPROTEIN,TUMOR MARKER 1 ALPHA-FETOPROTEIN,TUMOR MARKER 0 ALPHA-FETOPROTEIN,TUMOR MARKER 2 MRI ABD W&WO CONTRAST 10/17/2019 US ABD 03/27/2022 US ABD 03/14/2021 Prothrombin Time INR 02/12/2023 US abdomen complete 02/12/2023 Future Test Test Name Order Date UPPER GI ENDOSCOPY 10/23/2013 UPPER GI ENDOSCOPY 07/04/2016 COLONOSCOPY 07/04/2016 UPPER GI ENDOSCOPY 03/28/2018 UPPER GI ENDOSCOPY 02/17/2019 UPPER GI ENDOSCOPY 08/27/2019 UPPER GI ENDOSCOPY 03/14/2021 COLONOSCOPY 03/14/2021 UPPER GI ENDOSCOPY 03/27/2022 COLONOSCOPY 03/27/2022 COLONOSCOPY 02/12/2023 Next Appt Details Provider Name:Gilberto Hernandez , 07/01/2024 03:20:00 PM, [address], [address], [place], [address], Insurance Providers Payer Name Payer Address Payer Phone Subscriber Number Group Number Insured Name Patient Relationship to Insured Coverage Start Date Coverage End Date [facility] [address] [place] [phone] [id number] TRENT [id number] Self - patient is the insured MEDICAL (GENERAL) HISTORY Medical History History ICD Code GERD with Ennis's esophagu s-areas of high and low grade dysplasia seen in fall-has been going [place] [facility] [place]. Ferrer for ablation Rx of the Ennis's-most recent Rx was 01/2012-biopsies in 11/2011 showed the Ennis's, but no dysplasia Hypothyroidism HTN Hyperlipidemia Tubular adenomas removed from colon in and 2011 Denies IA,DM,CVA,Lung disease,renal dise ase Brain aneurysm with Agram and clipping i n 12/2007 Duodenal tubular adenoma removed in 2009 . Most recent EGD in [facility] s in 09/2012--Bx from 35 to 27 cm all neg for Ennis's esophagus nor dysplasia-same HH noted E[place] 04[place]2013 [place] [facility] [place] small areas of Ennis's mucosa, but no dysplasia noted EGD in 04/2014 showed her kn own hiatal hernia and a small area of Ennis's esophagus, but no dysplasia Slight elevation of the live r enzymes--- a liver ultrasound was consistent with fatty liver. urinary incontinence- mild Colonoscopy 10/2016 small tubular adenoma s removed EGD in 10/2016--small area of Ennis's with low grade dysplasia and hiatal hernia, EGD in 04/2018 with HH, smal l area of Ennis's but no dysplasia; probable portal gastropathy Fatty liver and cirrhosis--n egative liver w/u in 03/2018--she has had some thrombocytopenia and mild splenomegaly. Liver bx in 07/2018 with fatty liver and some fibrosis but no cirrhosis--started Ursodiol in 07/3018; MRI in October of 2019 revealed evidence of some cirrhosis but no liver mass EGD in 04/2019 revealed rik lar findings to the one in April 2018--biopsies were again negative for dysplasia within the small area of Ennis's mucosa. There was some portal gastropathy, but no varices. EGD 04/2020 revealed the kno wn small area of Ennis's esophagus with biopsies negative for dysplasia. There was no esophagitis Iron deficiency anemia 2020 with GI work up below EGD 04/2021-duodenitis with biopsies negative for celiac disease, gastritis with biopsies negative for H. pylori, friable gastric polyp, known hiatal hernia and small area of Ennis's esophagus but no esophagitis Colonoscopy 04/2021 with mul tiple tubular adenomas and a serrated adenoma--there was a fairly large adenomatous polyp > 1 cm removed from the area of the ileocecal valve as well Upper endoscopy in May revealed her known hiatal hernia and small area of Ennis's esophagus but without dysplasia, esophagitis, nor varices Colonoscopy in May revealed some residual flat adenomatous tissue in the ascending colon near the ileocecal valve that was removed Surgical History Surgery Date(Month/Year) Yan fundoplication in 1995--Dr. Reece davis Knee surgery Hysterectomy Shoulder surgery Cerebral aneursym clipping via intervent ional radiology
--- OUTSIDE RECORDS SUMMARY | 2024-05-28 11:56 | XMS_ITS ---
Author Organization [facility] Address [address] [place] [address] Care Team Providers Care Uniform Patrol Police Officer Name Role Phone Joshua KNIGHT, Christian Primary Care Provider Gilberto Hollingsworth Unavailable [phone] REASON FOR VISIT Patient presents today for marie's ,elevated lft's Encounters Encounter Location Date Provider Diagnosis [facility] [address] [place] [address] 03/20/2024 Gilberto Hernandez PLAN OF TREATMENT Next Appt Details Provider Name:Gilberto eHrnandez , 07/01/2024 03:20:00 PM, [address], [address], [place], [address],
--- OUTSIDE RECORDS SUMMARY | 2024-05-28 11:56 | XMS_ITS | Patient Health Record ---
Author Organization Christian Lewis MD Address [address] [place], [place] [id number] Care Team Providers Care Assistant Foreman Name Role Phone Christian Lewis Primary Care Provider ALLERGIES Allergen (clinical drug ingredient) Drug/Non Drug Allergy documented on EMR Reaction Allergy Type Onset Date Status lisinopril Lisinopril cough Drug Allergy Activ e RESULTS Component Value Reference Range Notes Shabana Hidalgo Reviewed date:05/28/2023 12:23:36 PM Interpretation: Performing Lab:[facility], [address] [place] [phone] Notes/Report: Shabana Hidalgo See Note Specimen held untested for 24 hours; Call to request Chemistry testing. Liver Panel Reviewed date:05/28/2023 04:38:15 PM Interpretation: Performing Lab:[facility], [address] [place] [phone] Notes/Report: Bilirubin Total 0.5 0.0-1.0 mg/dL Bilirubin Direct 0.2 0.0-0.5 mg/dL Aspartate Amino Transferase 18 5-31 U/L Alanine Aminotransferase 12 0-31 U/L Total Protein 6.2 6.5-8.0 g/dL Albumin Level 3.8 3.5-5.0 g/dL Alkaline Phosphatase 49 39-117 U/L Glucose Fasting Reviewed date:05/28/2023 04:16:40 PM Interpretation: Performing Lab:[facility], [address] [place] [phone] Notes/Report: Glucose Fasting 119 60-99 mg/dL A fasting glucose from 100-125 mg/dl is considered impaired (pre-diabetes). Lipid Panel with Reflex Reviewed date:05/28/2023 04:39:52 PM Interpretation: Performing Lab:[facility], [address] [place] [phone] Notes/Report: Triglycerides 69 <150 mg/dL Desirable Triglyceride: less than 150 mg/dL Borderline High Triglyceride 150-199 mg/dL High Triglyceride: 200-499 mg/dL Very High Triglyceride: greater than or equal to 5OO mg/dL Cholesterol 95 <200 mg/dL Desirable Cholesterol: less than 200 mg/dL Borderline High Cholesterol: 200-239 mg/dL High Cholesterol: greater than 239 mg/dL LDL Cholesterol Calculated 39 <100 mg/dL Desirable LDL: less than 100 mg/dL Near Optimal/Above Optimal LDL: 110-129 mg/dL Borderline High LDL: 130-159 mg/dL High LDL: 160-189 mg/dL Very High LDL: greater than or equal to 190 mg/dL HDL Cholesterol 43 >40 mg/dL Desirable HDL: greater than 40 mg/dL Note: This HDL assay may give artificially low results in patients with liver disease. Hemoglobin A1c Reviewed date:05/28/2023 12:23:47 PM Interpretation: Performing Lab:[address] [phone] Notes/Report: Hemoglobin A1c % 5.0 <6.0 % Hemoglobin A1C Reference Range Adults: 4.8 - 6.0 % Non diabetic: < 6.0 % Goal: < 7.0 % Additional Action Suggested: > 8.0 % Note: Hemoglobin A1c results are invalid for patients with abnormal amounts of HbF. Blood transfusions may impact the HbA1c concentration in the patient sample. Estimated Average Glucose 97 eAG = Estimated average glucose which is %A1C expressed as average glucose, using the formula of the E4P-Ozlimdx Average Glucose study (ADAG), Diabetes Care, Vol.31,#8, 2007 Complete Blood Count Auto Di ff Reviewed date:08/02/2023 11:38:23 AM Interpretation:see back 3-15-24 Performing Lab:[facility], [address] [place] [phone] Notes/Report: White Blood Count 3.1 4.8-10.8 X10*3/uL Red Blood Count 3.95 4.20-5.50 X10*6/uL Hemoglobin 9.7 12.0-16.0 g/dl Hematocrit 31.2 37.0-47.0 % Mean Corpuscular Volume 79.0 80.0-98.0 fL Mean Corpuscular Hemoglobin 24.6 27.0-33.0 pg Mean Corpuscular HGB Conc 31.1 31.0-35.0 g/dl Red Cell Distribution Width 19.5 11.0-16.0 % Platelet Count 85 160-400 X10*3/uL Mean Platelet Volume 11.6 9.4-12.3 fL Neutrophils Percent Auto 44.7 45-73 % Imm Gran Pct Auto 0.0 0.0-0.4 % Lymphocytes Percent Auto 39.6 20-40 % Monocytes Percent Auto 11.8 2-11 % Eosinophils Percent Auto 2.9 0-4 % Basophils Percent Auto 1.0 0-2 % NRBC Pct Auto 0.0 0.0-0.2 /100WBC Neutrophils Absolute Auto 1.4 2.0-8.3 x10*3/u L Imm Gran Abs Auto 0.00 0.00-0.03 X10*3/uL Lymphocytes Absolute Auto 1.2 1.2-4.9 X10*3/u L Monocytes Absolute Auto 0.4 0.1-1.2 X10*3/uL Eosinophils Absolute Auto 0.1 0.0-0.4 X10*3/u L Basophils Absolute Auto 0.0 0.0-0.2 X10*3/uL NRBC Abs Auto 0.000 0.0-0.012 X10*3/uL IRON PROFILE Reviewed date:07/04/2023 12:31:18 PM Interpretation: Performing Lab:[facility], [address] [place] [phone] Notes/Report: Iron 208 30-160 mcg/dL Total Iron Binding Capacity 354 228-428 mcg/dL Percent Iron Saturation 59 15-50 % Unsaturated Iron Binding 146 Complete Blood Count Auto Di ff Reviewed date:08/29/2023 03:20:26 PM Interpretation: Performing Lab:[facility], [address] [place] [phone] Notes/Report: White Blood Count 4.2 4.8-10.8 X10*3/uL Red Blood Count 4.14 4.20-5.50 X10*6/uL Hemoglobin 10.9 12.0-16.0 g/dl Hematocrit 34.5 37.0-47.0 % Mean Corpuscular Volume 83.3 80.0-98.0 fL Mean Corpuscular Hemoglobin 26.3 27.0-33.0 pg Mean Corpuscular HGB Conc 31.6 31.0-35.0 g/dl Red Cell Distribution Width 15.9 11.0-16.0 % Platelet Count 102 160-400 X10*3/uL Mean Platelet Volume 12.0 9.4-12.3 fL Neutrophils Percent Auto 37.8 45-73 % Imm Gran Pct Auto 0.2 0.0-0.4 % Lymphocytes Percent Auto 48.0 20-40 % Monocytes Percent Auto 10.6 2-11 % Eosinophils Percent Auto 2.9 0-4 % Basophils Percent Auto 0.5 0-2 % NRBC Pct Auto 0.0 0.0-0.2 /100WBC Neutrophils Absolute Auto 1.6 2.0-8.3 x10*3/u L Imm Gran Abs Auto 0.01 0.00-0.03 X10*3/uL Lymphocytes Absolute Auto 2.0 1.2-4.9 X10*3/u L Monocytes Absolute Auto 0.4 0.1-1.2 X10*3/uL Eosinophils Absolute Auto 0.1 0.0-0.4 X10*3/u L Basophils Absolute Auto 0.0 0.0-0.2 X10*3/uL NRBC Abs Auto 0.000 0.0-0.012 X10*3/uL Hold Gold Reviewed date:11/26/2023 01:00:34 PM Interpretation: Performing Lab:[facility], [address] [place] [phone] Notes/Report: Shabana Gold See Note Specimen held untested for 24 hours; Call to request Chemistry testing. Urine Culture Reviewed date:11/27/2023 08:05:38 PM Interpretation: Performing Lab:[facility], [address] [place] [address] Notes/Report: Urine Culture Report Result Urine Culture < 10,000 cfu/ml Complete Blood Count Auto Di ff Reviewed date:11/26/2023 12:58:22 PM Interpretation: Performing Lab:[facility], [address] [place] [address] Notes/Report: White Blood Count 3.1 4.8-10.8 X10*3/uL Red Blood Count 3.79 4.20-5.50 X10*6/uL Hemoglobin 10.0 12.0-16.0 g/dl Hematocrit 31.5 37.0-47.0 % Mean Corpuscular Volume 83.1 80.0-98.0 fL Mean Corpuscular Hemoglobin 26.4 27.0-33.0 pg Mean Corpuscular HGB Conc 31.7 31.0-35.0 g/dl Red Cell Distribution Width 15.3 11.0-16.0 % Platelet Count 90 160-400 X10*3/uL Mean Platelet Volume 12.3 9.4-12.3 fL Neutrophils Percent Auto 41.6 45-73 % Imm Gran Pct Auto 0.3 0.0-0.4 % Lymphocytes Percent Auto 42.3 20-40 % Monocytes Percent Auto 11.6 2-11 % Eosinophils Percent Auto 2.9 0-4 % Basophils Percent Auto 1.3 0-2 % NRBC Pct Auto 0.0 0.0-0.2 /100WBC Neutrophils Absolute Auto 1.3 2.0-8.3 x10*3/u L Imm Gran Abs Auto 0.01 0.00-0.03 X10*3/uL Lymphocytes Absolute Auto 1.3 1.2-4.9 X10*3/u L Monocytes Absolute Auto 0.4 0.1-1.2 X10*3/uL Eosinophils Absolute Auto 0.1 0.0-0.4 X10*3/u L Basophils Absolute Auto 0.0 0.0-0.2 X10*3/uL NRBC Abs Auto 0.000 0.0-0.012 X10*3/uL Comprehensive Talpa. Panel Fa st Reviewed date:11/26/2023 01:06:33 PM Interpretation: Performing Lab:[facility], [address] [place] [phone] Notes/Report: Sodium 141 135-145 mmol/L Potassium 4.1 3.3-5.1 mmol/L Chloride 108 96-108 mmol/L Carbon Dioxide 27 22-29 mmol/L Anion Gap 10 12-20 Blood Urea Nitrogen 14 9-16 mg/dL Creatinine 0.73 0.5-1.4 mg/dL Estimated Glomerular Filt Rate > 60 NOTE: For -[place] individuals, multiply the result by 1.210. Chronic Kidney Disease: Estimated GFR < 60 mL/min/1.73m2 Severe Kidney Disease: Estimated GFR < 15 mL/min/1.73m2 Glucose Fasting 103 60-99 mg/dL A fasting glucose from 100-125 mg/dl is considered impaired (pre-diabetes). Calcium 9.5 8.4-10.2 mg/dL Bilirubin Total 0.5 0.0-1.0 mg/dL Aspartate Amino Transferase 21 5-31 U/L Alanine Aminotransferase 12 0-31 U/L Total Protein 6.3 6.5-8.0 g/dL Albumin Level 3.8 3.5-5.0 g/dL Alkaline Phosphatase 52 39-117 U/L IRON PROFILE Reviewed date:11/26/2023 12:57:52 PM Interpretation: Performing Lab:[facility], [address] [place] [phone] Notes/Report: Iron 25 30-160 mcg/dL Total Iron Binding Capacity 308 228-428 mcg/dL Percent Iron Saturation 8 15-50 % Unsaturated Iron Binding 283 Lipid Panel Reviewed date:11/26/2023 12:59:34 PM Interpretation: Performing Lab:[facility], [address] [place] [phone] Notes/Report: Triglycerides 65 <150 mg/dL Desirable Triglyceride: less than 150 mg/dL Borderline High Triglyceride 150-199 mg/dL High Triglyceride: 200-499 mg/dL Very High Triglyceride: greater than or equal to 5OO mg/dL Cholesterol 101 <200 mg/dL Desirable Cholesterol: less than 200 mg/dL Borderline High Cholesterol: 200-239 mg/dL High Cholesterol: greater than 239 mg/dL LDL Cholesterol Calculated 43 <100 mg/dL Desirable LDL: less than 100 mg/dL Near Optimal/Above Optimal LDL: 110-129 mg/dL Borderline High LDL: 130-159 mg/dL High LDL: 160-189 mg/dL Very High LDL: greater than or equal to 190 mg/dL HDL Cholesterol 45 >40 mg/dL Desirable HDL: greater than 40 mg/dL Note: This HDL assay may give artificially low results in patients with liver disease. Vitamin D 25-OH Total Reviewed date:12/05/2023 08:50:36 AM Interpretation:heather 12/02 Performing Lab:[facility], [address] [place] [phone] Notes/Report: Vitamin D 25-OH Total 14.5 >30 ng/mL Health Based Reference Values* < 20 ng/mL Deficient 20-30 ng/mL Insufficient > 30 ng/mL Sufficient *Quinn BELL. N Engl J Med. 2007;357:266-280 Care must be taken in interpreting Vitamin D results from different laboratories and methodologies. Published data demonstrated that results from patients undergoing hemodialysis may show a negative bias when tested with various automated 25-OH vitamin D assays when compared to LC-MS/MS. When testing samples from patients whose predominant form of Vitamin D is Vitamin D2, such as patients receiving Vitamin D2 supplementation, results that are subtherapeutic should be confirmed with another method such as LC-MS/MS. Microalbumin, Random Reviewed date:11/26/2023 12:57:41 PM Interpretation: Performing Lab:[facility], [address] [place] [phone] Notes/Report: Creatinine Urine 146.01 Microalbumin Urine 12.0 Microalbum/Creatinine Ratio Ur 8.2 <30 ug/mg cr Albumin/Creatinine Ratio Reference Ranges: Normal: < 30 ug/mg creatinine Microalbuminuria: 30 - 300 ug/mg creatinine Clinical Albuminuria: > 300 ug/mg creatinine Hemoglobin A1c Reviewed date:11/26/2023 12:56:13 PM Interpretation: Performing Lab:[facility], [address] [place] [phone] Notes/Report: Hemoglobin A1c % 4.9 <6.0 % Hemoglobin A1C Reference Range Adults: 4.8 - 6.0 % Non diabetic: < 6.0 % Goal: < 7.0 % Additional Action Suggested: > 8.0 % Note: Hemoglobin A1c results are invalid for patients with abnormal amounts of HbF. Blood transfusions may impact the HbA1c concentration in the patient sample. Estimated Average Glucose 94 eAG = Estimated average glucose which is %A1C expressed as average glucose, using the formula of the T6S-Qmpeihu Average Glucose study (ADAG), Diabetes Care, Vol.31,#8, Dec. 2007 UA ClnCatch+Micro w/rflx Cul t Reviewed date:11/26/2023 01:08:43 PM Interpretation: Performing Lab:[facility], [address] [place] [phone] Notes/Report: Urine, Clean Catch Color Urine Yellow Appearance Urine Clear PH 6.0 5.0-9.0 Glucose Urine UA Negative Negative mg/dL Urine Blood Negative Negative Specific [place] - Urine 1.020 1.005-1.025 Urine Protein Negative Neg-Trace mg/dL Urine Ketones Negative Negative mg/dL Nitrite Urine Negative Negative Leukocyte Esterase Urine Small (1+) Negative RBC Urine 0-2 0-2 /HPF WBC Urine 0-5 0-5 /HPF Squamous Epithelial Cell Urine 6-10 0-2 /HPF Bacteria Urine None Seen None Seen Hyaline Casts Urine 0-2 0-2 /LPF Occult Blood, Stool, Guaiac Reviewed date:12/03/2023 01:27:30 PM Interpretation:Negative Performing Lab: Notes/Report: Negative Occult Blood, Stool, Guaiac Neg MM tomosynthesis diagnostic BI Reviewed date:02/24/2024 10:15:18 AM Interpretation: Performing Lab: Notes/Report: [facility] [address] [place] [address] Mammography Report Signed Patient: Mary Lou Celestin MR#: [id number] : 1945 Acct:[id number] Age/Sex: 78 / F ADM Date: 02/24/24 Loc: DAVID Attending Dr: Christian Lewis MD Ordering Physician: Christian Lewis MD Results: 1Ne gative Date of Service: 02/24/24 Follow Up: 1 Year From Orig inal Mammogram Procedure(s): MM tomosynthesis diagnostic BI Accession Number(s): [id number] cc: Christian Lewis MD EXAMINATION: MM DIAGNOSTIC DIGITAL BREAST TOMOSYNTHESIS, BILATERAL US BREAST LIMITED, LEFT MAMMOGRAPHY: CLINICAL INFORMATION: Due for screening. Upon arriving for screening patient informed technologist of a palpable focus x1 month with mild tenderness in the far upper outer quadrant left breast. This finding is marked with a lead marker by the technologist. History of breast CA in paternal and maternal grandmother, age unknown, however patient states older . COMPARISON: Mammography: 02/18/2023, 02/12/2022, 02/08/2021, 02/03/2020, and dating back to 2014. TECHNIQUE: Digital breast tomosynthesis is performed in both the craniocaudal and mediolateral oblique views along with computer-aided detection (CAD). Synthesized 2D images are generated from the tomosynthesis. In addition to standard views, added full field 3-D right CC view, left exaggerated 3-D lateral CC view, full field 3-D left ML view, and spot compression 3-D left MLO and CC views were obtained. FINDINGS: The breasts are almost entirely fatty (ACR BI-RADS breast composition Category a). There are no suspicious masses, suspicious grouped calcifications, or areas of architectural distortion in either breast. The parenchymal pattern is stable from prior exams. There is no skin or axillary abnormality. No mammographic abnormality is present in the area of palpable concern far upper outer left breast in the area of the palpable BB marker. We will evaluate this region with ultrasound. ULTRASOUND: CLINICAL INFORMATION: Palpable abnormality far upper outer quadrant left breast. COMPARISON: None relevant. TECHNIQUE: Targeted sonographic evaluation left breast was performed using a high frequency linear transducer. Left breast was evaluated from 10:00 to 2:00 to include the area of palpable concern. Selected archived documentation. FINDINGS: LEFT BREAST: There is predominantly fatty breast tissue. No suspicious mass is seen. There is no pathologic acoustic shadowing. No cystic abnormality. No architectural abnormalities. No ultrasonographic correlate to the focus of palpable concern. MM/MM tomosynthesis diagnostic BI IMPRESSION: There are no findings in either breast suspicious for malignancy. Area of palpable concern in the upper outer axillary tail region left breast shows no mammographic or sonographic correlate. Recommend clinical management and follow-up. Otherwise, recommend the patient return to routine annual screening. OVERALL ASSESSMENT: Mammography: BI-RADS 1 - Negative Ultrasound: BI-RADS 1 - Negative RECOMMENDATION: 1. Patient should be managed based on the clinical impression. 2. Otherwise, routine annual screening mammography. This patient's information was entered into a reminder system with a target due date for their next mammogram. Electronically signed by: Anthony Kelly MD 02/24/2024 09:53 AM EDT RP Dictated By: Anthony Kelly MD Signed By: <Electronically signed by Anthony Kelly MD in OV> 02/24/2453 DD/ 9 TD/TT: 02/24/2445 Collections Specialist: US breast LT limited mamm on ly Reviewed date:02/24/2024 10:16:05 AM Interpretation: Performing Lab: Notes/Report: [facility]'[address] [place] [address] Ultrasound Report Signed Patient: Mary Lou Celestin MR#: [id number] : 1945 Acct:[id number] Age/Sex: 78 / F ADM Date: 02/24/24 Loc: HO.MAMMO Attending Dr: Christian Lewis MD Ordering Physician: Christian Lewis MD Date of Service: 02/24/24 Procedure(s): US breast LT limited mamm only Accession Number(s): [id number] cc: Christian Lewis MD EXAMINATION: MM DIAGNOSTIC DIGITAL BREAST TOMOSYNTHESIS, BILATERAL US BREAST LIMITED, LEFT MAMMOGRAPHY: CLINICAL INFORMATION: Due for screening. Upon arriving for screening patient informed technologist of a palpable focus x1 month with mild tenderness in the far upper outer quadrant left breast. This finding is marked with a lead marker by the technologist. History of breast CA in paternal and maternal grandmother, age unknown, however patient states older . COMPARISON: Mammography: 02/18/2023, 02/12/2022, 02/08/2021, 02/03/2020, and dating back to 2014. TECHNIQUE: Digital breast tomosynthesis is performed in both the craniocaudal and mediolateral oblique views along with computer-aided detection (CAD). Synthesized 2D images are generated from the tomosynthesis. In addition to standard views, added full field 3-D right CC view, left exaggerated 3-D lateral CC view, full field 3-D left ML view, and spot compression 3-D left MLO and CC views were obtained. FINDINGS: The breasts are almost entirely fatty (ACR BI-RADS breast composition Category a). There are no suspicious masses, suspicious grouped calcifications, or areas of architectural distortion in either breast. The parenchymal pattern is stable from prior exams. There is no skin or axillary abnormality. No mammographic abnormality is present in the area of palpable concern far upper outer left breast in the area of the palpable BB marker. We will evaluate this region with ultrasound. ULTRASOUND: CLINICAL INFORMATION: Palpable abnormality far upper outer quadrant left breast. COMPARISON: None relevant. TECHNIQUE: Targeted sonographic evaluation left breast was performed using a high frequency linear transducer. Left breast was evaluated from 10:00 to 2:00 to include the area of palpable concern. Selected archived documentation. FINDINGS: LEFT BREAST: There is predominantly fatty breast tissue. No suspicious mass is seen. There is no pathologic acoustic shadowing. No cystic abnormality. No architectural abnormalities. No ultrasonographic correlate to the focus of palpable concern. US/US breast LT limited mamm only IMPRESSION: There are no findings in either breast suspicious for malignancy. Area of palpable concern in the upper outer axillary tail region left breast shows no mammographic or sonographic correlate. Recommend clinical management and follow-up. Otherwise, recommend the patient return to routine annual screening. OVERALL ASSESSMENT: Mammography: BI-RADS 1 - Negative Ultrasound: BI-RADS 1 - Negative RECOMMENDATION: 1. Patient should be managed based on the clinical impression. 2. Otherwise, routine annual screening mammography. This patient's information was entered into a reminder system with a target due date for their next mammogram. Electronically signed by: Anthony Kelly MD 02/24/2024 09:53 AM EDT Dictated By: Anthony Kelly MD Signed By: <Electronically signed by Anthony Kelly MD in OV> 02/24/24952 DD/ 9 TD/TT: 02/24/24917 Collections Specialist: Shabana Hidalgo (Not yet reviewed by provider) Interpretation: Performing Lab:[facility], [address] [place] [phone] Notes/Report: Shabana Hidalgo See Note Specimen held untested for 24 hours; Call to request Chemistry testing. Complete Blood Count Auto Di ff (Not yet reviewed by provider) Interpretation: Performing Lab:[facility], [address] [place] [address] Notes/Report: White Blood Count 3.5 4.8-10.8 X10*3/uL [...] Abs Auto 0.020 0.0-0.012 X10*3/uL REASON FOR REFERRAL Reason moderate arotic sten osis Diagnosis 1 Moderate aortic sten osis (I35.0) Referral Organization Christian Lewis MD Referring Provider First Name Christian Referring Provider Last Name Joshua Referring Provider Speciality Internal M edicine Referred Provider FLORENCE QUESADA Referred Provider Specialty Cardiology General Notes Tori Roth 01:47:45 PM EST > info faxed Tori Roth 06/07/2023 02:01:53 PM EST > appt being worked on per [facility] Tori Roth 06/17/2023 01:13:05 PM EST > info mailed to patient Referral Priority Routine Referral Appointment Date 08/08/2023 MEDICATIONS Medication SIG (Take, Route, Frequency, Duration) Notes Start Date End Date Status Ferrous Sulfate 325 (65 Fe) MG 1 tablet Orally Once a day 02/23/2021 Active Valsartan-hydroCHLOROthiazid e 160-12.5 MG TAKE 1 TABLET BY MOUTH EVERY DAY Active Atorvastatin Calcium 20 MG TAKE 1 TABLET BY MOUTH EVERY DAY Active Ursodiol 500 MG TAKE 2 TABLETS BY MO UTH EVERY MORNING AND 1 TAB EVERY EVENING 90 for 90 Active Levothyroxine Sodium 100 MCG TAKE 1 TABL ET BY MOUTH EVERY DAY IN THE MORNING ON EMPTY STOMACH for 90 Active Vitamin D 2000 UNIT Orally Active Omeprazole 40 MG 1 capsule Orally Onc e a day Active IMMUNIZATIONS Vaccine Route Administration Date Status Comme [facility] Flu Vaccine IM Intramuscular 03/05/2011 Administered Flu Vaccine Unknown 03/10/2012 Administered [facility] Flu Vaccine Unknown 03/12/2012 Administered flu vac at [facility] Flu Vaccine IM Intramuscular 01/26/2013 Administered PPSV23 (Pnemovax) IM Intramuscular 01/29/2013 Administered Fluarix Quadrivalent IM Intramuscular 02/16/2014 Administered Fluarix Quadrivalent IM Intramuscular 03/14/2015 Administered Prevnar 13 IM Intramuscular 09/26/2015 Administered Fluarix Quadrivalent IM Intramuscular 03/20/2016 Administered Fluarix Quadrivalent IM Intramuscular 03/05/2017 Administered TDaP Unknown 04/08/2017 Administered pt was given the vaccine at [facility] on [facility] Fluarix Quadrivalent IM Intramuscular 04/21/2018 Administered PPSV23 (Pnemovax) IM Intramuscular 04/25/2018 Administered Influenza High Dose IM Intramuscular 03/12/2019 Administer ed Influenza High Dose Unknown 02/08/2020 Administered [facility] Influenza High Dose Unknown 02/11/2020 Administered [facility] Influenza High Dose IM Intramuscular 02/10/2020 Administer ed [facility] SARS-COV-2 Pfizer Unknown 08/31/2020 Administered SARS-COV-2 Pfizer Unknown 09/21/2020 Administered Influenza High Dose IM Intramuscular 02/16/2021 Administer ed SARS-COV-2 Pfizer Unknown 03/27/[address] [facility] Fluarix Quadrivalent IM Intramuscular 02/19/2022 Administered Influenza High Dose IM Intramuscular 02/12/2023 Administer ed SARS-COV-2 Pfizer Unknown 04/30/2023 Administered [facility] Influenza High Dose IM Intramuscular 02/04/2024 Administer ed SARS-COV-2 Moderna 2022 Unknown 02/07/2024 Administered [facility] Flu Vaccine Unknown 02/16/2014 Pending SOCIAL HISTORY Tobacco Use: Social History Observation [...] ast year? No Points 0 Interpretation Negative PROBLEMS Problem Type ICD Code Onset Dates Problem Status W/U Status Risk SNOMED Code Notes Problem Thrombocytopenia (D69.6) Active confirmed 097135810 Problem Lymphocytosis (D72.820) Active confirmed 53161957 Problem Tubular adenoma (D36.9) Active confirmed 368302222 Problem Reflux esophagitis (K21.00) Active confirmed 412348142 Problem Vitamin D deficiency (E55.9) Active confirmed Vitamin D deficiency (55777284) Problem Annual physical exam (Z00.00) Active confirmed 465249142 Problem Morbid (severe) obesity due to excess calories (E66.01) Active confirmed 844022743 Problem Cerebral aneurysm, nonruptured (I67.1) Active confirmed 26960957 Problem Body mass index (BMI ) 36.0-36.9, adult (Z68.36) Active confirmed 414150502 Problem Osteopenia (M85.80) Active confirmed 31 7617126 Problem Essential hypertensi on (I10) Active confirmed 35116042 Problem Acquired hypothyroidism (E03.9) Active confirmed 894760152 Problem Prediabetes (R73.09) Active confirmed 9 106461 Problem Low HDL (under 40) (E78.6) Active confirmed 738773988 Problem Nonrheumatic aortic valve stenosis (I35.0) Active confirmed 612818380 Problem Hiatal hernia (K44.9) Active confirmed 40259079 Problem Neutropenia, unspecified type (D70.9) Active confirmed 176338537 Problem Pure hypercholesterolemia (E78.00) Active confirmed 260543481 Problem BMI 39.0-39.9,adult (Z68.39) Active confirmed 281220962 Problem BMI 38.0-38.9,adult (Z68.38) Active confirmed 134200811 Problem Barretts esophagus with dysplasia (K22.719) Active confirmed [id number] Problem Asymptomatic varicos e veins (I83.90) Active confirmed 842833715 Problem Aortic stenosis, moderate (I35.0) Active confirmed 884353398 VITAL SIGNS Blood pressure diastolic 60 mm Hg 12/03/2023 radha ght is down 3 pounds since 09-05-23 Height 65.25 in 12/03/2023 weight is down 3 pounds since 09-05-23 Blood pressure systolic 112 mm Hg 12/03/2023 weig ht is down 3 pounds since 09-05-23 Weight 182 lbs 12/03/2023 weight is down 3 pounds since 09-05-23 BMI 30.05 kg/m2 12/03/2023 weight is down 3 pounds since 09-05-23 Encounters Encounter Location Date Provider Diagnosis Christian Lewis MD [address] [place] [address] [id number] 12/03/2023 Christian Lewis Vitamin D deficiency E55.9 ; Thrombocytopenia D69.6 ; Essential hypertension I10 ; Barretts esophagus with dysplasia K22.719 ; Iron deficiency E61.1 ; Acquired hypothyroidism E03.9 ; Annual physical exam Z00.00 ; Prediabetes R73.09 ; Pure hypercholesterolemia E78.00 ; Reflux esophagitis K21.00 ; Colon cancer screening Z12.11 and Encounter for screening for depression Z13.31 Christian Lewis MD [address] [place] [address] [id number] 05/28/2023 Christian Lewis Pure hypercholestero lemia E78.00 and Prediabetes R73.09 Christian Lewis MD [address] [place] [address] [id number] 11/26/2023 Christian Lewis Blood tests for rout ine general physical examination Z00.00 ; Essential hypertension I10 ; Prediabetes R73.09 ; Pure hypercholesterolemia E78.00 ; Thrombocytopenia D69.6 and Vitamin D deficiency E55.9 Christian Lewis MD [address] [place] [address] [id number] 07/04/2023 Christian Lewis Mild anemia D64.9 Christian Lewis MD [address] [place] [address] [id number] 08/29/2023 Christian Lewis Neutropenia, unspeci fied type D70.9 and Chronic anemia D64.9 Christian Lewis MD [address] [place] [address] [id number] 05/28/2024 Christian Lewis Iron deficiency E61. 1 ; Thrombocytopenia D69.6 and Acquired hypothyroidism E03.9 Christian Lewis MD [address] [place] [address] [id number] 02/04/2024 Christian Lewis Encounter for immuni zation Z23 Christian Lewis MD [address] [place] [address] [id number] 06/04/2023 Christian Lewis Pure hypercholestero lemia E78.00 ; Essential hypertension I10 ; Barretts esophagus with dysplasia K22.719 ; Morbid (severe) obesity due to excess calories E66.01 ; Nonrheumatic aortic valve stenosis I35.0 and Mild anemia D64.9 Christian Lewis MD [address] [place] [address] [id number] 08/02/2023 Christian Lewis Neutropenia, unspeci fied type D70.9 ; Chronic anemia D64.9 and Aortic stenosis, moderate I35.0 Christian Lewis MD [address] [place] [address] [id number] 09/05/2023 Christian Lewis Thrombocytopenia D69 .6 ; Acquired hypothyroidism E03.9 and Aortic stenosis, moderate I35.0 ASSESSMENTS Encounter Date Diagnosis Assessment Notes Treatment Notes Treatment Clinical Notes 12/03/2023 Thrombocytopenia (IC D-10 - D69.6) stable, will continue to monitor 12/03/2023 Vitamin D deficiency (ICD-10 - E55.9) instructed patient to start taking med more regularly 05/28/2023 Prediabetes (ICD-10 - R73.09) 05/28/2023 Pure hypercholestero lemia (ICD-10 - E78.00) 11/26/2023 Essential hypertensi on (ICD-10 - I10) 11/26/[address] ine general physical examination (ICD-10 - Z00.00) 07/04/2023 Mild anemia (ICD-10 - D64.9) 08/29/2023 Neutropenia, unspeci fied type (ICD-10 - D70.9) 08/29/2023 Chronic anemia (ICD- 10 - D64.9) 05/28/2024 Iron deficiency (ICD -10 - E61.1) 02/04/2024 Encounter for immunization (ICD-10 - Z23) 06/04/2023 Pure hypercholestero lemia (ICD-10 - E78.00) stable, will continue current regiment 08/02/2023 Neutropenia, unspeci fied type (ICD-10 - D70.9) discussed recent labs with patient, will continue to monitor 08/02/2023 Chronic anemia (ICD- 10 - D64.9) had colonoscopy this year and upper endo last year, will continue to monitor, pending labs 09/05/2023 Thrombocytopenia (IC D-10 - D69.6) doing well, will continue to monitor 09/05/2023 Acquired hypothyroid ism (ICD-10 - E03.9) will recheck in november, will continue current regiment 12/03/2023 Essential hypertensi on (ICD-10 - I10) stable, will continue curren regiment and will continue to monitor 11/26/2023 Prediabetes (ICD-10 - R73.09) 05/28/2024 Thrombocytopenia (IC D-10 - D69.6) 06/04/2023 Essential hypertensi on (ICD-10 - I10) doing well, will continue current regiment 08/02/2023 Aortic stenosis, mod erate (ICD-10 - I35.0) is seeing cardiology next week has no symptoms at present time 09/05/2023 Aortic stenosis, mod erate (ICD-10 - I35.0) described the symptoms 12/03/2023 Barretts esophagus w ith dysplasia (ICD-10 - K22.719) followed by dr cheema 11/26/2023 Pure hypercholestero lemia (ICD-10 - E78.00) 05/28/2024 Acquired hypothyroid ism (ICD-10 - E03.9) 06/04/2023 Barretts esophagus w ith dysplasia (ICD-10 - K22.719) follow by dr cheema, will continue current regiment 12/03/2023 Iron deficiency (ICD -10 - E61.1) to start taking iron daily 11/26/2023 Thrombocytopenia (IC D-10 - D69.6) 06/04/2023 Morbid (severe) obes ity due to excess calories (ICD-10 - E66.01) has lost 17 on diet 12/03/2023 Acquired hypothyroid ism (ICD-10 - E03.9) stable, will continue current regiment 11/26/2023 Vitamin D deficiency (ICD-10 - E55.9) 06/04/2023 Nonrheumatic aortic valve stenosis (ICD-10 - I35.0) getting echo tomorrow 12/03/2023 Annual physical exam (ICD-10 - Z00.00) labs reviewed and dicussed with patient 06/04/2023 Mild anemia (ICD-10 - D64.9) will continue to monitor 12/03/2023 Prediabetes (ICD-10 - R73.09) stable, no need for medication at this time 12/03/2023 Pure hypercholestero lemia (ICD-10 - E78.00) stable, will continue curren regiment 12/03/2023 Reflux esophagitis (ICD-10 - K21.00) stable, will continue curren t regiment 12/03/2023 Colon cancer screeni ng (ICD-10 - Z12.11) guaiac negative 12/03/2023 Encounter for screen ing for depression (ICD-10 - Z13.31) negative screen PLAN OF TREATMENT Pending Test Test Name Order Date Electrocardiogram (EKG) 08/20/2013 Electrocardiogram (EKG) 10/11/2016 Electrocardiogram (EKG) 10/24/2017 Electrocardiogram (EKG) 11/06/2018 MRA BRAIN NO CONTRAST 03/28/2012 MRA BRAIN NO CONTRAST 11/24/2021 BONE DENSITY DEXA 11/24/2021 BONE DENSITY DEXA 12/12/2021 BONE DENSITY DEXA 11/15/2020 US ABD AORTA 11/29/2022 ECHO 11/15/2020 Hold Gold 05/28/2024 MM tomosynthesis screening BI 11/15/2020 ECHO 11/12/2019 Complete Blood Count Auto Diff 5 IRON PROFILE 05/28/2024 TSH reflex Free T4 05/28/2024 Future Test Test Name Order Date CA echo transthoracic complete 2 CA echo transthoracic complete 4 Next Appt Details Provider Name:Christian Martin ier, 06/04/2024 10:15:00 AM, [address], [address], [place], [place], [phone], Provider Name:Christian Martin ier, 11/27/2024 07:15:00 AM, [address], [address], [place], [place], [phone], Provider Name:Christian Martin ier, 12/04/2024 09:30:00 AM, [address] [place] [address], [address], [place], [place], [phone], Insurance Providers Payer Name Payer Address Payer Phone Subscriber Number Group Number Insured Name Patient Relationship to Insured Coverage Start Date Coverage End Date [employer]AN [address] [place] [phone] [id number] Mary Lou Celestin Self - patient is the insured MEDICAL (GENERAL) HISTORY Medical History History ICD Code 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 Cheema - repeat 5 years;Colonoscopy 04/19/21 repeat in one year ( 2021) colonoscopy 05/29/23 repeat 2/3 years barretis. yoo done 2012 - Endo done 10/22/[address] Cheema - repeat 3 years; Endo w/biopsy done endoscopy 04/19/21 04/21/[address] Cheema - repeat 1 year; Endoscopy w/biopsies done 04/22/[address] Cheema: 05/30/22 Colonoscopy repeat one year had mra in 2012 and they felt should hav e a repeat in 2 years 08/01 total hysterectomy Surgical History Surgery Date(Month/Year) coil in brain esophagel reflux surgery hysterectomy total ablation of esophagel ulcer
--- OUTSIDE RECORDS SUMMARY | 2024-05-28 11:56 | XMS_ITS ---
Author Organization [facility] Address [address] [place] [address] Care Team Providers Care International Marketing Coordinator Name Role Phone Joshua KNIGHT, Christian Primary Care Provider Gilberto Hollingsworth Unavailable [phone] REASON FOR VISIT cancel appt on 03/20/2024 Encounters Encounter Location Date Provider Diagnosis [facility] [address] [place] [address] 03/17/2024 Gilberto Hernandez PLAN OF TREATMENT Next Appt Details Provider Name:Gilberto Hernandez , 07/01/2024 03:20:00 PM, [address], [address], [place], [address],
--- OUTSIDE RECORDS SUMMARY | 2024-05-28 11:56 | XMS_ITS ---
Author Organization [facility] Address [address] [place] [address] Care Team Providers Care Flotation Tender Name Role Phone Christian Lewis MD Primary Care Provider Maite Mayfield Unavailable [phone] Allergies No Known Allergies REASON FOR VISIT Pcp- 06/04/23, Ingrown Nail Medications Medication SIG (Take, Route, Frequency, Duration) Notes Start Date End Date Status Valsartan-hydroCHLOROthiazid e 320-12.5 MG 1 tablet Orally Once a day Active Iron Active Levothyroxine Sodium 100 MCG 1 tablet in the morning on an empty stomach Orally Once a day Active Omeprazole 40 MG 1 capsule 30 minutes before morning meal Orally Once a day Active Atorvastatin Calcium 20 MG 1 tablet Oral ly Once a day Active Ursodiol 500 MG as directed Ac tive Vitamin D3 Active Social History Tobacco Use: Social History Observation Description Date Details (start date - stop date) Former Smoker NA - NA Tobacco Use/Smoking Question Answer Notes Are you a: former smoker Additional Findings: Tobacco Non-User Current no n-smoker Alcohol Screen Question Answer Notes Did you have a drink contain ing alcohol in the past year? Yes How often did you have a dri nk containing alcohol in the past year? Monthly or less (1 point) Points 1 Interpretation Negative Tobacco use other than smoking: Question Answer Notes Are you an other tobacco user? No Vital Signs Height 5 ft 5 in in 07/24/2023 Weight 182 lbs 07/24/2023 BMI 30.28 kg/m2 07/24/2023 Encounters Encounter Location Date Provider Diagnosis [facility] [address] [place] [address] 07/24/2023 Maite Cedeno Ingrown nail L60.0 Assessments Encounter Date Diagnosis (ICD Code) Assessment Notes Treatment Notes Treatment Clinical Notes Section Notes 07/24/2023 Ingrown nail (ICD-10 - L60.0) Plan Of Treatment Next Appt Details Follow Up: prn, Reason: Progress Notes * Mary Lou CELESTIN SDOB:1945 (78 yo F)Acc No.[id number]:07/24/2023 Progress Notes Patient:?Mary Lou Celestin S Provider:?Maite Cedeno DPM :1945???Age:78 Y???Sex:Female D ate:07/24/2023 Address[address] [facility] Pcp:Christian Lewis MD Subjective: * Chief Complaints: * ???Pcp- 06/04/23Ingrown Nail * HPI: ???Ingrown toenail:?Location:?Great toe.?Duration:?several weeks.?Course:?improved.?Treatments:?previous nail avulsions.? * ROS:?General/Constitutional:?Nausea?denies.?Vomiting?denies.?Hunger Thirst?denies.?Loss appetite?denies.?Chills?denies.?Fatigue?denies.?Fever?denies.?Night Sweats?denies.?Unexplained weight loss?denies.?Unexplained weight gain?denies.?HEENTM:?Dentures?admits.?Dizziness?denies.?Glasses/contacts?admits.?Retinopathy?de nies.?Blurred/double vision?denies.?TMJ?denies.?Discharge/drainage?denies.?Implants?denies.?Sore throat?denies.?Dental implants?denies.?Hard of hearing ?denies.?Difficulty chewing/swallowing/speaking?denies.?Nose bleeds?denies.?Sore mouth?denies.?Respiratory:?On Oxygen?denies.?Pneumonia/pleurisy?denies.?Bronchitis?denies.?Emphysema?denies.?C oughing?denies.?Cough blood?denies.?Shortness of breath?denies.?Wheezing?denies.?Cardiovascular:?Pacemaker?denies.?MVP?denies.?WPW?denies.?CHF?denies.?Heart attack?denies.?Septal defect?denies.?Rapid beat?denies.?Chest pain ?denies.?Atrial Fib.?denies.?Murmur/Palpitations?denies.?Gastrointestinal:?Hemorrhoids?denies.?Stomach/Abdominal pain?denies.?Dark blood stool?denies.?Irritable bowel ?denies.?Constipation?denies.?Diarrhea?denies.?Hematology:?Swelling?denies.?Clots?denies.?Varicose Veins?denies.?Bruising?denies.?Bleeding problem?denies.?Genitourinary:?Blood urine?denies.?Frequent/Painfu/urination/bladder control?denies.?Kidney stones?denies.?Infection (UTI)?denies.?Nephropathy?denies.?sex trans dis (STD)?denies.?Prostate?denies.?Musculoskeletal:?Hammertoes?denies.?Bunions?denies.?Back Pain?denies.?Muscle Cramps/ Resting?denies.?Muscle cramps / walking?denies.?Generalized aches and pains?denies.?Weakness?denies.?Integ.:?Lopez?denies.?Scars?admits.?Corns/calluses?denies.?Ingrown nails?admits.?Painful nails?denies.?Open Sores?denies.?Rashes?denies.?Neurologic:?Difficulty sleeping?denies.?Brain disorder?denies.?Numbness?denies.?Balance trouble?denies.?Confusion?denies.?Fainting/blackouts?denies.?Tingling?admits.?Tr emors?denies.? * Medical History:? * Surgical History:?hysterecto my 1986knee surgery, left shoulder surgery right stomach surgery 1996brain aneurysm 2008colonoscopy 05/29/23 * Hospitalization/Major Diagno stic Procedure:?Denies Past Hospitalization * Family History:?Mother: dece ased.?Father: , diagnosed with Unspecified heart disease.?Maternal Grand Mother: cancer.? * Social History:?Tobacco Use:?Tobacco Use/Smoking?Are you a:?former smoker ?Additional Findings: Tobacco Non-User?Current non-smoker ?Tobacco use other than smoking?Are you an other tobacco user??No ???Drugs/Alcohol:?Drugs?Have you used drugs other than those for medical reasons in the past 12 months??No ?Alcohol Screen?Did you have a drink containing alcohol in the past year??Yes ?How often did you have a drink containing alcohol in the past year??Monthly or less (1 point) ?Points?1 ?Interpretation?Negative ???Miscellaneous:?Caffeine: yes, 1-2 cups per day. ?Children: yes, 2. ?Exercise: yes, walking. ?Marital status: . 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 * Medications:?TakingIron Melisa min D3 Ursodiol 500 MG Tablet as directed Valsartan-hydroCHLOROthiazide 320-12.5 MG Tablet 1 tablet Orally Once a dayAtorvastatin Calcium 20 MG Tablet 1 tablet Orally Once a dayOmeprazole 40 MG Capsule Delayed Release 1 capsule 30 minutes before morning meal Orally Once a dayLevothyroxine Sodium 100 MCG Tablet 1 tablet in the morning on an empty stomach Orally Once a dayMedication List reviewed and reconciled with the patientTaking Iron Taking Vitamin D3 Taking Ursodiol 500 MG Tablet as directed Taking Valsartan-hydroCHLOROthiazide 320-12.5 MG Tablet 1 tablet Orally Once a dayTaking Atorvastatin Calcium 20 MG Tablet 1 tablet Orally Once a dayTaking Omeprazole 40 MG Capsule Delayed Release 1 capsule 30 minutes before morning meal Orally Once a dayTaking Levothyroxine Sodium 100 MCG Tablet 1 tablet in the morning on an empty stomach Orally Once a dayMedication List reviewed and reconciled with the patient * Allergies:?N.K.D.A.yes[Aller gies Verified] Objective: * Vitals:?Ht: 5 ft 5 in, Wt:18 2, BMI:30.28, Shoe size: 9.5, Ht-cm: 165.1 cm. * Examination: ???General Examination: ?GENERAL APPEARANCE:?Reveals a pleasant, alert, well-nourished, well- developed, well hydrated individual, who demonstrates proper attention to hygiene/body habitus, and is in no acute distress, Pt serves as own?historian for office visit today.?ORIENTED:?person, place, and time.?Neurological: ?SENSORY:?Neurological exam reveals intact sensorium, pain sensation normal, vibration sensation intact, pinprick sensation is normal in the lower extremities, Pt denies, anesthesia, burning, paresthesia, tingling, B/L.?DEEP TENDON REFLEXES:?Achilles, 2/4, B/L.?Vascular: ?DP PULSES:?3/4, B/L.?PT PULSES:?3/4, B/L.?CAPILLARY FILL TIME:?immediate, all digits, B/L.?SKIN TEMPERTURE GRADIENT OF THE LOWER EXTERMITIES:?warm to cool, proximal to distal, B/L.?HAIR GROWTH/TEXTURE/ELASTICITY/TURGOR:?normal, B/L.?PIGMENTATION:?normal, B/L.?EDEMA:?absent, B/L.?Dermatologic: ?SKIN FINDINGS:?Skin exam reveals normal texture, elasticity, and turgor. There are no masses. The interspaces are clear.?Orthopedic: ?MUSCLE STRENGTH:?5/5 all groups in a symmetrical fashion , B/L.?Ingrown Nail: ?INSPECTION:?Reveals nail incurvation, NO pain on palpation, groove hypertrophy , Bilateral nail borders , TA , T5.? Assessment: * Assessment: 1.?Ingrown nail - L60.0 (Lori gates), Acute problem, Uncomplicated (3)? Plan: * Treatment: * Procedure Codes:? * Preventive Medicine:? ??Counseling:?Discussion:?-03: Office or other outpatient visit for the evaluation and management of a new patient, which required a medically appropriate history and/or examination and LOW level of DECISION MAKING for: 1 STABLE ACUTE UNCOMPLICATED PROBLEM, 2 OR MORE MINOR PROBLEMS, OR 1 STABLE CHRONIC PROBLEM, THAT POSE(S) A LOW RISK FOR MORBIDITY/MORTALITY. The visit on the day of the encounter encompassed interpreting the data and educating the patient as to the nature of their condition, treatment options available according to their individual PMH, meds, allergies, and overall health/living conditions, as well as any potential risks or complications that may occur from a failure to adhere to, and participate in, the recommended course of therapy. The discussion included a complete verbal, and/or written explanation of the examination results, any x-rays taken, the proposed diagnosis, and outline of the treatment plan. A schedule for future care needs was also explained. The patient verbalized an understanding of the instructions at this time and agreed to be an active participant in their treatment. If the patient should think of any questions or concerns after the visit, I have encouraged the patient to call the office.?Abscess/Paraonychia/Ingrown Nails:?We discussed the possible etiologies (genetic, improper nail care, shoe gear, nail trauma) which may lead to ingrown nails and/or paronychial infections. We discussed and reviewed palliative/nonsurgical/deferring definitive treatment (vs) undergoing the treatment procedures of nail avulsion(s) or PNA, which may prevent recurrence and give more lasting results. The possible risks/complications such as worsened condition/delayed healing/nonhealing/failure/recurrence/infection, the potential benefits/advantages of decreased pain/deformity, as well as alterative treatment options including applying nail softening agents/nail groove packing were discussed. No guarantees were given regarding any outcome for any procedure. The patient was educated in the length of time for the affected nail to regrow once completely healed from a nail avulsion procedure. Once the condition has completely healed, the patient was consulted on proper nail care. Patient questions such as details of each procedure, varying time to heal, activity post procedure, and shoe gear were discussed and the answers were verbally confirmed fully understood, pt not having pain currently defers any treatment to nails.? * Follow Up:?prn * Images: * Sign off status: Completed true * Provider:?Maite Cedeno DPM Date:?10/2023 Generated for Suzanne caraballo/Ligia/Isaacransmitting on:?05/28/2024 11:56 AM EST History and Physical Notes * HPI (History of Present Illness) Category Sub-Category Detail Notes Category Not es Ingrown toenail Duration: several weeks Location: Great toe Treatments: previous nail avulsi ons Course: improved Examination Category Sub-Category Detail Notes Category Not es Ingrown Nail INSPECTION: Reveals nail inc urvation, NO pain on palpation, groove hypertrophy , Bilateral nail borders , TA , T5 Neurological SENSORY: Neurological exa m reveals intact sensorium, pain sensation normal, vibration sensation intact, pinprick sensation is normal in the lower extremities, Pt denies, anesthesia, burning, paresthesia, tingling, B/L DEEP TENDON REFLEXES: Achilles, 2/4, B/L Dermatologic SKIN FINDINGS: Skin exam reveal s normal texture, elasticity, and turgor. There are no masses. The interspaces are clear Orthopedic MUSCLE STRENGTH: 5/5 all groups in a symm etrical fashion , B/L General Examination GENERAL APPEARANCE: Reveals a pleasant, alert, well- nourished, well-developed, well hydrated individual, who demonstrates proper attention to hygiene/body habitus, and is in no acute distress, Pt serves as own historian for office visit today ORIENTED: person, place, and t annia Vascular DP PULSES (B): 3/4, B/L PT PULSES (B): 3/4, B/L CAPILLARY FILL TIME: immediate, all digi ts, B/L TEMPERTURE GRADIENT (C): warm to cool, p roximal to distal, B/L TROPHIC CONDITION-TEXTURE/ELASTICITY/TURGOR/HAIR GROWTH (B): normal, B/L EDEMA (C): absent, B/L PIGMENTATION: normal, B/L
--- OUTSIDE RECORDS SUMMARY | 2024-05-28 11:56 | XMS_ITS ---
Author Organization [facility] Address [address] [place] [address] Care Team Providers Care Consultant [employer]. Vice President [employer] ) Name Role Phone Joshua KNIGHT, Christian Primary Care Provider Gilberto Hollingsworth Unavailable [phone] REASON FOR VISIT screening,hx polyps PROBLEMS Problem Type ICD Code Onset Dates Problem Status W/U Status Risk SNOMED Code Notes Problem Personal history of colonic polyps (Z86.010) Active confirmed History of polyp of colon (situation) ([id number]) Encounters Encounter Location Date Provider Diagnosis [facility] [address] [place] [phone] 05/29/2023 Gilberto Hernandez Encounter for scre ening colonoscopy Z12.11 ; Personal history of colonic polyps Z86.010 ; Diverticulosis of large intestine without perforation or abscess without bleeding K57.30 and Other hemorrhoids K64.8 ASSESSMENTS Encounter Date Diagnosis Assessment Notes Treatment Notes Treatment Clinical Notes 05/29/2023 Encounter for screening colonoscopy (ICD-10 - Z12.11) 05/29/2023 Personal history of colonic polyps (ICD-10 - Z86.010) 05/29/2023 Diverticulosis of large intestine without perforation or abscess without bleeding (ICD-10 - K57.30) 05/29/2023 Other hemorrhoids (ICD-10 - K64.8) PLAN OF TREATMENT Next Appt Details Provider Name:Gilberto Hernandez , 07/01/2024 03:20:00 PM, [address], [address], [place], [address],
--- OUTSIDE RECORDS SUMMARY | 2024-05-28 11:57 | XMS_ITS ---
Author Organization [facility] Address [address] [place] [address] Care Team Providers Care Control Systems Eng Name Role Phone Christian Lewis MD Primary Care Provider Maite Mayfield [phone] REASON FOR VISIT SMALL PIECE CUTTER PPWK Entered Encounters Encounter Location Date Provider Diagnosis [facility] [address] [place] [address] 07/16/2023 Maite Cedeno Plan Of Treatment No Information Progress Notes * Mary Lou CELESTIN SDOB:1945 (78 yo F)Acc No.[id number]:07/16/2023 Patient:?Mary Lou Celestin :1945???Age:78 Y???Sex:Female Address:[address] [facility] [place], [address] * true * Date:? Generated for Suzanne caraballo/Ligia/eTransmitting on:?05/28/2024 11:57 AM EST
--- OUTSIDE RECORDS SUMMARY | 2024-05-28 11:57 | XMS_ITS ---
Author Organization [facility] Address [address] [place] [address] Care Team Providers Care Lead Performance Support Analyst Name Role Phone Christian Lewis MD Primary Care Provider Maite Mayfield [phone] REASON FOR VISIT CANVASSING MANAGER cx same day- car trouble Encounters Encounter Location Date Provider Diagnosis [facility] [address] [place] [address] 07/24/2023 Maite Cedeno Plan Of Treatment No Information Progress Notes * Mary Lou CELESTIN SDOB:1945 (78 yo F)Acc No.[id number]:07/24/2023 Patient:?Mary Lou Celestin :1945???Age:78 Y???Sex:Female Address:[address] [place], [address] * true * Date:? Generated for Printi rashmi/Ligia/eTransmitting on:?05/28/2024 11:56 AM EST
--- OUTSIDE RECORDS SUMMARY | 2024-05-28 11:57 | XMS_ITS | Patient Health Record ---
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 Name Role Phone Christian Lewis MD Primary Care Provider Maite Mayfield Unavailable [phone] Allergies No Known Allergies Reason For Referral No Information Medications Medication SIG (Take, Route, Frequency, Duration) Notes Start Date End Date Status Valsartan-hydroCHLOROthiazid e 320-12.5 MG 1 tablet Orally Once a day Active Ursodiol 500 MG as directed Ac tive Vitamin D3 Active Iron Active Levothyroxine Sodium 100 MCG 1 tablet in the morning on an empty stomach Orally Once a day Active Omeprazole 40 MG 1 capsule 30 minutes before morning meal Orally Once a day Active Atorvastatin Calcium 20 MG 1 tablet Oral ly Once a day Active Social History Tobacco Use: Social History [...] 07/24/2023 Encounters Encounter Location Date Provider Diagnosis [facility] [address] [place] [address] 07/24/2023 Maite Cedeno Ingrown nail L60.[address] [place] [address] 07/16/2023 Maite Cedeno [facility] [address] [place] [address] 07/24/2023 Maite Cedeno Assessments Encounter Date Diagnosis (ICD Code) Assessment Notes Treatment Notes Treatment Clinical Notes Section Notes 07/24/2023 Ingrown nail (ICD-10 - L60.0) Plan Of Treatment No Information Insurance Providers Payer Name Payer Address Payer Phone Subscriber Number Group Number Insured Name Patient Relationship to Insured Coverage Start Date Coverage End Date [employer]age [address] [place] [address] [id number] Mary Lou Celestin Self - patient is the insured Medical (General) History Medical History History ICD Code High blood pressure Scarlet fever thyroid Chicken pox Surgical History Surgery Date(Month/Year) hysterectomy 1985 knee surgery, left shoulder surgery right stomach surgery 1995 brain aneurysm 2007 colonoscopy 05/29/23
[2024-05-28 12:00] LABS: Iron 30 mcg/dL (30-160); Percent Iron Saturation 9 % (15-50); Total Iron Binding Capacity 318 mcg/dL (228-428); Unsaturated Iron Binding 288 ug/dL
[2024-05-28 12:09] LABS: TSH reflex Free T4 4.87 uIU/mL (0.32-4.0)
[2024-05-28 13:07] LABS: Free T4 (Free Thyroxine) 1.07 ng/dL (0.71-1.85)
== END 2024-05-28 11:12 | disposition home or self-care (01) ==
LOC: HO.LNP 11:11
PROVIDERS: Visit Provider Internal Medicine
DX: D69.6 Thrombocytopenia, unspecified (principal); E61.1 Iron deficiency; E03.9 Hypothyroidism, unspecified
CPT/HCPCS: 83540; 84439; 84443; 85025

== ENCOUNTER 2024-06-23 15:19 | Inpatient (IN) | payer MEDICARE, SELFPAY ==
[2024-06-23] VITALS (14 sets, daily range): BP systolic 83–95; BP diastolic 35–55; PULSE 89–102; RESP 13–20; TEMP 36.6–37.1; O2SAT 95–100; BMI 29.9
--- NOTE | ~2024-06-23 | CT_ITS ---
CLINICAL HISTORY: significant anemia, heme positive stool CT abdomen and pelvis with and without contrast. GI bleeding study. Comparison: Abdominal ultrasound dated 04/30/2023. Discussion: Diffuse interstitial thickening and architectural distortion of the bilateral lower lobes may represent chronic interstitial lung disease. Moderate-sized hiatal hernia. Gallbladder and the solid organs are unremarkable. Bowel loops are nondilated. Moderate amount of stool is noted within the right colon colon is otherwise mostly contracted. Scattered diverticulosis of the descending and sigmoid colon. No fluid levels or hypodensities noted throughout the small or large bowel loops. Pelvic structures are intact. Small fat only containing umbilical hernia. Moderate multilevel spondylosis of the thoracolumbar spine. Impression: No acute disease within the abdomen or pelvis. No evidence of active GI hemorrhage. Moderate hiatal hernia with changes related to gastric bypass surgery. Diffuse interstitial thickening of the lung bases, may represent chronic interstitial lung disease. This document has been electronically signed by: Keyanna Piedra MD on 06/23/2024 22:39:08
--- NOTE | ~2024-06-23 | XR_ITS ---
CLINICAL HISTORY: chest pain and dyspnea 1 view chest x-ray Comparison: None Findings: There are surgical clips overlying the left mid lung. No consolidative process. Peribronchial thickening is present. Heart size is normal. No acute fracture. IMPRESSION: There is peribronchial thickening. This document has been electronically signed by: Tia Roach MD on 06/23/2024 17:30:40
--- NOTE | 2024-06-23 15:28 | ECG_ITS ---
Test Reason : SOB Blood Pressure : */* mmHG Vent. Rate : 92 BPM Atrial Rate : 92 BPM P-R Int : 142 ms QRS Dur : 96 ms QT Int : 368 ms P-R-T Axes : 62 31 -1 degrees QTcB Int : 455 ms Normal sinus rhythm Possible Left atrial enlargement Cannot rule out Inferior infarct , age undetermined Abnormal ECG When compared with ECG of 22-Oct-2016 08:26, Minimal criteria for Inferior infarct are now Present Non-specific change in ST segment in Inferior leads Referred By: Muriel Farooq Electronically Signed By: Evan Mann
--- NOTE | 2024-06-23 15:36 | CA_ITS ---
Transthoracic Echocardiogram Patient (Last, First, Middle): Mary Lou Celestin S Gender: Female Date of : 1945 Age: 78 Procedure Date: 06/23/2024 Procedure Type: Transthoracic Echocardiogram Location: ER Height: 167.64 cm Weight: 83.92 kg BSA: 1.93 m2 Heart Rate: bpm BP: 84 / 35 mmHg Order Entry: Referring MD: Kleber Skaggs MD Symptoms: dyspnea, hypotension ECG Rhythm: Sinus Conclusions: - Normal left ventricular size and systolic function. There is mildly increased left ventricular wall thickness. The visually estimated ejection fraction is between 60-65%. - Mildly increased right ventricular cavity size. There is normal right ventricular systolic function. - The left atrium is severely dilated. - There is severe aortic valve stenosis. - Mild pulmonary hypertension is present. Findings Left Ventricle Normal left ventricular size and systolic function. There is mildly increased left ventricular wall thickness. The visually estimated ejection fraction is between 60-65%. There is no evidence of regional wall motion abnormalities. Diastolic function is indeterminate on the basis of available data. Right Ventricle Mildly increased right ventricular cavity size. There is normal right ventricular systolic function. Atria The left atrium is severely dilated. The right atrium is mildly dilated. Aortic Valve There is severe calcification of the aortic valve. There is severe aortic valve stenosis. The peak aortic velocity is 4.30 m/s with a calculated peak gradient of 74 mmHg. The mean gradient is 44 mmHg. The aortic valve area is 0.81 cm2. There is no aortic valve regurgitation. Mitral Valve There is severe mitral annular calcification. There is mild mitral valve regurgitation. The mean mitral valve gradient is 7.00 mmHg. Pulmonic Valve Normal pulmonic valve structure and function. There is no pulmonic valve regurgitation. Tricuspid Valve Normal tricuspid valve structure. There is trace tricuspid valve regurgitation. The right ventricular systolic pressure is 45 mmHg. Normal right atrial pressure. Mild pulmonary hypertension is present. Great Vessels There is mild dilatation of the ascending aorta measuring 3.50 cm. The visualized portions of the pulmonary artery and branches are normal. Venous The inferior vena cava is normal in size and collapses greater than 50% with inspiration. Pericardium/Pleural There is no evidence of pericardial effusion. Prior Study Comparison Changes noted compared to prior study dated: 01/27/2024. Severe present Measurements 2D Linear Measurements IVSd: 1.06 0.6-0.9/0.6-1.0 cm LVIDd: 4.30 3.9-5.3/4.2-5.9 cm LVIDd Index: 2.23 2.4-3.2/2.2-3.1 cm/m2 LVIDs: 3.07 2.0-3.6 cm LVPWd: 1.06 0.7-1.1 cm Ao Root: 3.30 2.1-3.5 cm LA Diam: 4.40 2.7-3.8/3.0-4.0 cm LAIDs Index: 2.28 1.5-2.3 cm/m2 LV Mass: 192.51 67-162/88-224 g LV Mass Index: 99.74 43-95/49-115 g/m2 LVOT Diam: 2.10 3.0+(-)1.3 cm Mitral Valve MV VTI: 0.51 MV Pk Wilian: 2.01 MV Mn Wilian: 1.26 MV Pk Grad: 16.00 MV Mn Grad: 7.00 MV Pk E: 1.51 MV PK A: 1.50 MV Decel Time: 151.00 E/A: 1.00 E'Lateral: 3.59 E'Medial: 4.68 E/E' Med: 32.30 E/E' Lat: 42.10 PHT: 44.00 MVA PHT: 5.00 MVA Continuity: 1.73 Decel [place]: 10.02 Aortic Valve AoV Pk Wilian: 4.30 AoV Mn Wilian: 3.09 AoV VTI: 1.08 AoV Pk Grad: 74.00 Aov Mn Grad: 44.00 KATIE Cont.VTI: 0.81 LVOT LVOT Pk Wilian: 1.02 LVOT Mn Wilian: 0.69 LVOT VTI: 0.25 LVOT Pk Grad: 4.00 LVOT Mn Grad: 2.00 LVOT Diam: 2.10 LVOT Area: 3.46 Diastolic Function MV Pk E: 1.51 MV Pk A: 1.50 E/A: 1.00 E'Medial: 4.68 E/E' Med: 32.30 E' Laterial: 3.59 E/E' Lat: 42.10 Right Ventricle TAPSE (mm): 32.00 TVS' Wilian: 16.00 Tricuspid Valve TR Pk Wilian: 3.25 TR Pk Grad: 42.00 RA Press: 3.00 RVSP: 45.00 Great Vessels Aorta Ao Root-2D: 3.30 2.0-3.7 cm Ao Asc: 3.50 2.1-3.4 cm Pulmonary Valve PV Pk Wilian: 0.92 Peak PV Grad: 3.00 Updated in Other Vendor System with Status of Final Evan Mann MD electronically signed on 06/23/2024 7:46:03 PM with status of Final
--- NOTE | 2024-06-23 15:37 | ED.GENADULT ---
HPI - General Adult General Chief complaint: Dyspnea Stated complaint: SOB/BP 70/40 Time Seen by Provider: 06/23/24 15:36 History of Present Illness ED Provider: Giles MILLS narrative: The patient is a 78-year-old female with a history of valvular heart disease, primarily aortic stenosis. She had an echocardiogram most recently last month that was read as showing moderate to severe aortic valve stenosis. There was a plan for her to be re-evaluated in July but over the last 3 weeks the patient feels that she has had worsening shortness of breath on exertion. This has been significantly worse over the last 3 days. She has had no fever, sweats, chills. She has had no cough or sputum. She has had no orthopnea or paroxysmal nocturnal dyspnea. Nevertheless she feels that simple activities are taking her much longer than they used to and so she called the cardiology office yesterday and was given an appointment for today. She went to the cardiology appointment and was sent to the emergency room for further evaluation.. The patient says her last bowel movement was yesterday. She says she does not think she had a black bowel movement. She says she used to have back bowel movements when she was on iron but stopped taking iron awhile ago and does not think she has had any black bowel movements recently. No hematemesis. No bloody stool. The patient has had burning on urination. She has not had a fever. Related Data Home Medications ?Medication ?Instructions ?Recorded ?Confirmed cholecalciferol (vitamin D3) 50 50 mcg PO DAILY 04/27/20 06/23/24 mcg (2,000 unit) capsule (Vitamin D3) ursodiol 500 mg tablet 1,000 mg PO DAILY 04/27/20 06/23/24 valsartan 160 1 tab PO DAILY 04/27/20 06/23/24 mg-hydrochlorothiazide 12.5 mg tablet atorvastatin 20 mg tablet 20 mg PO DAILY 08/08/23 06/23/24 levothyroxine 100 mcg tablet 100 mcg PO QAM 08/08/23 06/23/24 omeprazole 40 mg capsule,delayed 40 mg PO DAILY 08/08/23 06/23/24 release Allergies Allergy/AdvReac Type Severity Reaction Status Date / Time No Known Allergies Allergy Verified 06/23/24 15:27 [No Known Allergies*] Review of Systems Review of Systems: Yes all other systems are reviewed and are negative [facility] Past Medical History Medical History Aortic stenosis Obesity Hypothyroid Fatty liver History of Ennis's esophagus GERD (gastroesophageal reflux disease) Elevated cholesterol HTN (hypertension) Surgical History Hx of brain surgery History of esophagogastroduodenoscopy (EGD) Hx of colonoscopy History of Yan fundoplication Family History Family History Father Heart problem Social History Social History Alcohol intake: current Alcohol intake frequency: holidays/special occasions only Patient Tobacco Use Status: Former Tobacco user Smoked in Last 30 Days: No Second Hand Smoke Exposure: No Use of substances other than those prescribed or required for medical reasons: No Advance Directives: No Advance Directives Information Provided: Yes Physical Exam ED Vital Signs: Vital Signs - 24 hr 06/23/24 15:24 06/23/24 15:57 06/23/24 17:15 Temperature 98.1 F 98 F 98.2 F Pulse Rate 97 91 90 Respiratory Rate 18 13 16 Blood Pressure 84/35 L 91/42 L 83/42 L Pulse Oximetry 100 98 96 Oxygen Delivery Method Room Air Room Air Room Air 06/23/24 18:29 06/23/24 18:32 06/23/24 18:43 Temperature 98 F 98 F 98.4 F Pulse Rate 99 95 92 Respiratory Rate 18 16 15 Blood Pressure 92/48 L 92/55 L 90/52 L Pulse Oximetry 98 Oxygen Delivery Method Room Air BMI result Body Mass Index 29.9 Const Other: The patient is a pleasant 78-year-old woman who was awake and alert with a normal mental status. She looks pale and somewhat frail but not in acute distress. HENMT Other: Face is symmetrical. Mucous membranes moist Eyes Other: Pupils are round equal, conjunctivae are clear, extraocular movements intact. Neck Other: No JVD Resp Effort & Inspection: normal respiratory effort Auscultation: clear to auscultation bilaterally Cardio Rate: regular rate Rhythm: regular rhythm Heart sounds: S1 normal heart sound present, S2 normal heart sound present and Murmur heart sound present (3/6 systolic murmur) GI Other: Abdomen is soft and nontender. Rectal exam reveals non melenic brown stool which is trace heme positive. Skin Other: Skin is pale and dry Neuro Other: The patient is awake and alert with a normal mental status. Cranial nerves are intact. She moves her extremities normally and appropriately Extrem Other: No peripheral edema Medications Administered Discontinued Medications Generic Name Dose Route Start Last Admin Trade Name Erisq PRN Reason Stop Dose Admin Pantoprazole Sodium 80 mg 06/23/24 17:31 06/23/24 18:36 Pantoprazole Sodium 40 Mg/10 Ml Vial IVPUSH 06/23/24 17:32 80 mg ONCE ONE Administration Medical Decision Making Medical Decision Making [facility] Narrative: The patient is a 78-year-old female with a history of aortic stenosis who presents with worsening dyspnea on exertion. She comes from the cardiology office from where she was referred for an echo on the assumption that her dyspnea on exertion might be worsening valvular disease. Here in the emergency room she was found to be significantly anemic with a hemoglobin of 5.7. Her BUN is mildly elevated at 21. Rectal exam revealed brown heme-positive stool. No true melena. The patient was consented for blood transfusion. She was given 80 mgs of pantoprazole. There was some delay in getting a blood transfusion and a repeat CBC was sent just before the blood transfusion started. The repeat CBC shows a hemoglobin of 4.9. This was somewhat surprising as the patient does not seem to be showing signs of ongoing bleeding. Given this finding I have ordered a CT of the abdomen and pelvis for a GI bleed protocol. The patient is currently receiving blood. She is asymptomatic at rest. I am at the end of my shift and will be signing out the results of the CT to my colleague. I have communicated with Dr. Vega about this patient as well. The patient also had urinary symptoms of urgency and dysuria. Her urinalysis is consistent with a UTI. I do not think that she is uroseptic in any way. She was given 1 g of IV ceftriaxone. Lab Data 06/23/24 18:31 06/23/24 15:44 Labs: Lab Results 06/23/24 06/23/24 06/23/24 Range/Units 15:44 16:01 17:10 WBC 5.9 (4.8-10.8) X10*3/uL RBC 2.52 L D (4.20-5.50) X10*6/uL Hgb 5.7 L* D (12.0-16.0) g/dl Hct 19.1 L* D (37.0-47.0) % MCV 75.8 L (80.0-98.0) fL MCH 22.6 L (27.0-33.0) pg MCHC 29.8 L (31.0-35.0) g/dl RDW 15.1 (11.0-16.0) % Plt Count 123 L (160-400) X10*3/uL MPV 11.7 (9.4-12.3) fL Immature Gran % (Auto) 0.5 H (0.0-0.4) % Neut % (Auto) 68.5 (45-73) % Lymph % (Auto) 20.8 (20-40) % [place] % (Auto) 8.0 (2-11) % Eos % (Auto) 1.7 (0-4) % Baso % (Auto) 0.5 (0-2) % Lymph # (Auto) 1.2 (1.2-4.9) X10*3/uL [place] # (Auto) 0.5 (0.1-1.2) X10*3/uL Eos # (Auto) 0.1 (0.0-0.4) X10*3/uL Baso # (Auto) 0.0 (0.0-0.2) X10*3/uL Abs Immat Gran (auto) 0.03 (0.00-0.03) X10*3/uL Absolute Neuts (auto) 4.0 (2.0-8.3) x10*3/uL Absolute Nucleated RBC 0.000 (0.0-0.012) X10*3/uL Nucleated RBC % (auto) 0.0 (0.0-0.2) /100WBC Smear Tech's Comments VERIFIED PT 12.7 H (10.9-12.4) SEC INR 1.1 (0.9-1.1) Sodium 139 (135-145) mmol/L Potassium 3.4 (3.3-5.1) mmol/L Chloride 105 (96-108) mmol/L Carbon Dioxide 23 (22-29) mmol/L Anion Gap 14 (12-20) BUN 21 H (9-16) mg/dL Creatinine 0.92 (0.5-1.4) mg/dL Estim Creat Clear Calc 55.0 Estimated GFR 59 Random Glucose 129 H (60-115) mg/dL Calcium 9.2 (8.4-10.2) mg/dL Magnesium 1.7 (1.6-2.6) mg/dL Total Bilirubin 0.5 (0.0-1.0) mg/dL AST 22 (5-31) U/L ALT 8 (0-31) U/L Alkaline Phosphatase 53 (39-117) U/L Troponin I High Sens 212.8 H* (<3.5-17.0) ng/L B-Natriuretic Peptide 441 H (<100) pg/mL Total Protein 6.5 (6.5-8.0) g/dL Albumin 3.8 (3.5-5.0) g/dL Urine Color Yellow Urine Appearance Cloudy Urine pH 6.0 (5.0-9.0) Ur Specific [place] 1.020 (1.005-1.025) Urine Protein 100 (2+) H (Neg-Trace) mg/dL Urine Glucose (UA) Negative (Negative) mg/dL Urine Ketones Negative (Negative) mg/dL Urine Blood Moderate (2+) H (Negative) Urine Nitrite Positive H (Negative) Ur Leukocyte Esterase Moderate (2+) H (Negative) Urine RBC 11-20 H (0-2) /HPF Urine WBC >50 H (0-5) /HPF Ur Squamous Epith Cells 0-2 (0-2) /HPF Urine Bacteria 4+ (None Seen) Hyaline Casts 3-5 (0-2) /LPF Blood Type O Negative Antibody Screen NEGATIVE Crossmatch See Detail 06/23/24 Range/Units 18:31 WBC 3.5 L (4.8-10.8) X10*3/uL RBC 2.20 L (4.20-5.50) X10*6/uL Hgb 4.9 L* (12.0-16.0) g/dl Hct 16.7 L* (37.0-47.0) % MCV 75.9 L (80.0-98.0) fL MCH 22.3 L (27.0-33.0) pg MCHC 29.3 L (31.0-35.0) g/dl RDW 15.1 (11.0-16.0) % Plt Count 89 L D (160-400) X10*3/uL MPV 11.3 (9.4-12.3) fL Immature Gran % (Auto) (0.0-0.4) % Neut % (Auto) (45-73) % Lymph % (Auto) (20-40) % [place] % (Auto) (2-11) % Eos % (Auto) (0-4) % Baso % (Auto) (0-2) % Lymph # (Auto) (1.2-4.9) X10*3/uL [place] # (Auto) (0.1-1.2) X10*3/uL Eos # (Auto) (0.0-0.4) X10*3/uL Baso # (Auto) (0.0-0.2) X10*3/uL Abs Immat Gran (auto) (0.00-0.03) X10*3/uL Absolute Neuts (auto) (2.0-8.3) x10*3/uL Absolute Nucleated RBC 0.000 (0.0-0.012) X10*3/uL Nucleated RBC % (auto) 0.0 (0.0-0.2) /100WBC Smear Tech's Comments PT (10.9-12.4) SEC INR (0.9-1.1) Sodium (135-145) mmol/L Potassium (3.3-5.1) mmol/L Chloride (96-108) mmol/L Carbon Dioxide (22-29) mmol/L Anion Gap (12-20) BUN (9-16) mg/dL Creatinine (0.5-1.4) mg/dL Estim Creat Clear Calc Estimated GFR Random Glucose (60-115) mg/dL Calcium (8.4-10.2) mg/dL Magnesium (1.6-2.6) mg/dL Total Bilirubin (0.0-1.0) mg/dL AST (5-31) U/L ALT (0-31) U/L Alkaline Phosphatase (39-117) U/L Troponin I High Sens 203.1 H* (<3.5-17.0) ng/L B-Natriuretic Peptide (<100) pg/mL Total Protein (6.5-8.0) g/dL Albumin (3.5-5.0) g/dL Urine Color Urine Appearance Urine pH (5.0-9.0) Ur Specific [place] (1.005-1.025) Urine Protein (Neg-Trace) mg/dL Urine Glucose (UA) (Negative) mg/dL Urine Ketones (Negative) mg/dL Urine Blood (Negative) Urine Nitrite (Negative) Ur Leukocyte Esterase (Negative) Urine RBC (0-2) /HPF Urine WBC (0-5) /HPF Ur Squamous Epith Cells (0-2) /HPF Urine Bacteria (None Seen) Hyaline Casts (0-2) /LPF Blood Type Antibody Screen Crossmatch Independent Interpretation I performed an independent interpretation of an: EKG Interpretation: EKG at 15:52 shows normal sinus rhythm at 92 beats per minute. No definite acute ischemic changes Critical Care Time Critical Care Time Critical Care Time: Yes Total Critical Care Time: 35 Attestation: The patient was critically ill with a high probability of imminent or life-threatening deterioration. ?I spent greater than 30 minutes of discontinuous time evaluating the patient, delivering critical care at the bedside, discussing evaluating data with consultants. ?Critical care time does not include time spent performing separately billable procedures or teaching. ?Time spent performing critical care with 35 minutes. Discharge Plan Discharge Clinical Impression: Severe anemia, Exertional dyspnea, Heme positive stool, Urinary tract infection, Aortic stenosis Patient Disposition: Still a Patient Prescriptions: No Action valsartan-hydrochlorothiazide 160-12.5 mg tablet 1 tab PO DAILY ursodiol 500 mg tablet 1,000 mg PO DAILY cholecalciferol (vitamin D3) [Vitamin D3] 50 mcg (2,000 unit) Capsule 50 mcg PO DAILY atorvastatin 20 mg tablet 20 mg PO DAILY levothyroxine 100 mcg tablet 100 mcg PO QAM omeprazole 40 mg capsule,delayed release(DR/EC) 40 mg PO DAILY Print Language: Swedish
[2024-06-23 15:53] LABS: Basophils Percent Auto 0.5 % (0-2); Eosinophils Absolute Auto 0.1 X10*3/uL (0.0-0.4); Eosinophils Percent Auto 1.7 % (0-4); Imm Gran Abs Auto 0.03 X10*3/uL (0.00-0.03); Imm Gran Pct Auto 0.5 % (0.0-0.4); Lymphocytes Absolute Auto 1.2 X10*3/uL (1.2-4.9); Lymphocytes Percent Auto 20.8 % (20-40); MANUAL DIFF FLAG SCAN; Mean Corpuscular HGB Conc 29.8 g/dl (31.0-35.0); Mean Corpuscular Hemoglobin 22.6 pg (27.0-33.0); Mean Corpuscular Volume 75.8 fL (80.0-98.0); Monocytes Absolute Auto 0.5 X10*3/uL (0.1-1.2); Neutrophils Percent Auto 68.5 % (45-73); PLT CLUMP 1; Red Blood Count 2.52 X10*6/uL (4.20-5.50); Red Cell Distribution Width 15.1 % (11.0-16.0); SCAN SMEAR FLAG 1
[2024-06-23 15:55] LABS: Hematocrit 19.1 % (37.0-47.0); Hemoglobin 5.7 g/dl (12.0-16.0)
[2024-06-23 15:56] LABS: INTERNATIONAL NORM RATIO 1.1 (0.9-1.1); Prothrombin Time 12.7 SEC (10.9-12.4)
[2024-06-23 15:57] LABS: White Blood Count 5.9 X10*3/uL (4.8-10.8)
--- OUTSIDE RECORDS SUMMARY | 2024-06-23 16:09 | XMS_ITS | Clinical Summary ---
Author Organization [facility] Address [address] [place] [address] Care Team Providers Care Test Engineering Manager Name Role Phone Unavailable Primary Care Provider Unavailabl e Social History Tobacco Use Types Packs/Day Years Used Date Smoking Tobacco: Never Assessed Sex and Gender Information Value Date Recorded Sex Assigned at Not on file Gender Identity Not on file Sexual Orientation Not on file Plan of Treatment Health Maintenance Due Date Last Done Comments Hepatitis C Virus Screening 1945 DTaP/Tdap/Td Vaccines (1 - Tdap) 1964 Pneumococcal Vaccines 50+ (1 of 1 - PCV) 1995 Zoster (Shingles) Vaccine (1 of 2) 1995 RSV Vaccine 60 years and old er and Patients (1 - 1-dose 75+ series) 2020 COVID-19 Vaccine ( - 2023-2 5 season) 2024 Hepatitis B Vaccines Aged Out No long er eligible based on patient's age to complete this topic
[2024-06-23 16:12] LABS: Appearance Urine Cloudy; Color Urine Yellow; Glucose Urine UA Negative (Negative); Leukocyte Esterase Urine Moderate (2+) (Negative); Nitrite Urine Positive (Negative); UMIC TRIGGER UACC YES; Urine Blood Moderate (2+) (Negative); Urine Ketones Negative (Negative); Urine Protein 100 (2+) mg/dL (Neg-Trace)
[2024-06-23 16:14] LABS: Alanine Aminotransferase 8 U/L (0-31); Albumin Level 3.8 g/dL (3.5-5.0); Alkaline Phosphatase 53 U/L (39-117); Anion Gap 14 (12-20); Aspartate Amino Transferase 22 U/L (5-31); Bilirubin Total 0.5 mg/dL (0.0-1.0); Blood Urea Nitrogen 21 mg/dL (9-16); Calcium 9.2 mg/dL (8.4-10.2); Carbon Dioxide 23 mmol/L (22-29); Chloride 105 mmol/L (96-108); Estimated Glomerular Filt Rate 59; Glucose Random 129 mg/dL (60-115); Magnesium 1.7 mg/dL (1.6-2.6); Potassium 3.4 mmol/L (3.3-5.1); Sodium 139 mmol/L (135-145); Total Protein 6.5 g/dL (6.5-8.0)
[2024-06-23 16:15] LABS: B Type Natriuretic Peptide 441 pg/mL (<100)
[2024-06-23 16:18] LABS: Bacteria Urine 4+ (None Seen); Squamous Epithelial Cell Urine 0-2 /HPF (0-2); UACC Culture Trigger YES; WBC Urine >50 /HPF (0-5)
[2024-06-23 16:20] LABS: Mean Platelet Volume 11.7 fL (9.4-12.3); Platelet Count 123 X10*3/uL (160-400); SLIDE REVIEW VERIFIED
[2024-06-23 16:22] LABS: Troponin-I High Sensitivity 212.8 ng/L (<3.5-17.0)
[2024-06-23] MEDS: Pantoprazole Sodium 40 MG/10 ML VIAL 80 MG IVPUSH (18:36)
[2024-06-23 18:41] LABS: Mean Corpuscular HGB Conc 29.3 g/dl (31.0-35.0); Mean Corpuscular Hemoglobin 22.3 pg (27.0-33.0); Mean Corpuscular Volume 75.9 fL (80.0-98.0); Mean Platelet Volume 11.3 fL (9.4-12.3); Red Cell Distribution Width 15.1 % (11.0-16.0); White Blood Count 3.5 X10*3/uL (4.8-10.8)
[2024-06-23 18:46] LABS: Hematocrit 16.7 % (37.0-47.0)
[2024-06-23 18:48] LABS: Hemoglobin 4.9 g/dl (12.0-16.0)
[2024-06-23 18:58] LABS: Platelet Count 89 X10*3/uL (160-400)
[2024-06-23 18:59] LABS: Troponin-I High Sensitivity 203.1 ng/L (<3.5-17.0)
[2024-06-23] MEDS: cefTRIAXone sodium 1 GM VIAL IVPUSH (20:00)
[2024-06-23 20:15] LABS: Iron 14 mcg/dL (30-160); Percent Iron Saturation 4 % (15-50); Total Iron Binding Capacity 340 mcg/dL (228-428); Unsaturated Iron Binding 326 ug/dL
--- NOTE | 2024-06-23 21:22 | PC.NURSE ---
first unit of rbc completed no reaction noted. pt is now going to ct between bloods.
[2024-06-23] MEDS: iohexoL 350 MG/ML 100 ML INFUS..BTL IV (21:31)
--- NOTE | 2024-06-23 22:26 | PC.NURSE ---
pt repositioned herself and became sob with exertion. sat 95%. waiting for next unit of prbc.
--- NOTE | 2024-06-23 22:50 | PC.NURSE ---
pt 2nd unit of prbc infusing, pt italia well no complications at this time. bp 92/50.
[2024-06-24] VITALS (10 sets, daily range): BP systolic 88–104; BP diastolic 45–57; PULSE 86–98; RESP 16–22; TEMP 35.6–37.1; O2SAT 92–96; BMI 30.2
--- NOTE | 2024-06-24 00:09 | P.HPHOSP_ITS ---
History of Present Illness Date of Service: 06/24/24 Attending physician on admission: Cortes Rodriguez Chief Complaint: MCBRIDE Patient is a 70-year-old female with a past medical history significant for severe aortic stenosis, HLD, hypothyroid, GERD/hx Ennis's esophagus, ?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 She reports that she saw her datapower developer who recommended a stat echo at the ED. at this time she was found to have hemoglobin of 5.7 and on repeat a few hours later 4.9. She denies any visible bleeding sources including melena, gross hematuria or hematochezia. She does report that she has had a workup for this many times in the past and was told to take iron daily for the past few years. She stopped taking this about 3-4 weeks ago due to constipation. Aside from some tachycardia and dyspnea on exertion she has been asymptomatic. Review of Systems 2 Constitutional: Constitutional: Denies body ache(s), Denies chills, Reports fatigue, Denies fever(s) and Denies headache(s) Eyes: Eyes: Denies change in vision and Denies photophobia ENT: Denies headache(s), Denies nasal congestion, Denies nasal discharge and Denies sore throat Cardiovascular: Cardiovascular: Denies chest pain, Reports rapid heart rate, Denies lightheadedness, Reports dyspnea and Reports dyspnea on exertion Respiratory: Respiratory: Denies chest congestion, Denies cough, Reports dyspnea, Reports dyspnea on exertion and Denies wheezing Gastrointestinal: Gastrointestinal: Denies abdominal pain, Denies nausea and Denies vomiting Genitourinary: Genitourinary: Denies difficulty voiding, Denies dysuria and Denies urinary urgency Musculoskeletal: Musculoskeletal: Denies myalgias Integumentary/Breasts: Skin/Breast: Denies rash Neurologic: Denies confusion and Denies headache(s) Psychiatric: Psychiatric: Denies confusion Endocrine: Endocrine: Reports fatigue Hematologic/Lymphatic: Hematologic/Lymphatic: Denies easy bleeding and Denies easy bruising Allergic/Immunologic: Allergic/Immunologic: Denies wheezing [facility] Medical History Aortic stenosis Obesity Hypothyroid Fatty liver History of Ennis's esophagus GERD (gastroesophageal reflux disease) Elevated cholesterol HTN (hypertension) Functional capacity: independent ambulation Family History Father Heart problem Surgical History Hx of brain surgery History of esophagogastroduodenoscopy (EGD) Hx of colonoscopy History of Yan fundoplication Social History Alcohol intake: current Alcohol intake frequency: holidays/special occasions only Patient Tobacco Use Status: Former Tobacco user Smoked in Last 30 Days: No Second Hand Smoke Exposure: No Use of substances other than those prescribed or required for medical reasons: No Advance Directives: No Advance Directives Information Provided: Yes Narrative: no smoking, etoh or drug use Meds Allergies Allergy/AdvReac Type Severity Reaction Status Date / Time No Known Allergies Allergy Verified 06/23/24 15:27 [No Known Allergies*] Active Medications: Current Medications Acetaminophen (Acetaminophen 325 Mg Tablet) 975 mg PO Q6H PRN PRN Reason: Pain, Mild 1-3,fever,headache Calcium Carbonate (Calcium Carbonate 750 Mg Tab.Chew) 750 mg PO Q4H PRN PRN Reason: Heartburn Ceftriaxone Sodium (Ceftriaxone Sodium 1 Gm Vial) 1 gm IVPUSH Q24H DENIS Magnesium Hydroxide (Milk Of Magnesia 30 Ml Oral.Susp) 30 ml PO DAILY PRN PRN Reason: Constipation Melatonin (Melatonin 3 Mg Tablet) 6 mg PO BEDTIME PRN PRN Reason: Insomnia Ondansetron HCl (Ondansetron Hcl 4 Mg/2 Ml Vial) 4 mg IVPUSH Q8H PRN PRN Reason: Nausea and Vomiting Polyethylene Glycol (Polyethylene Glycol 3350 17 Gm Powd.Pack) 17 gm PO DAILY PRN PRN Reason: Constipation Sodium Chloride (0.9 % Sodium Chloride Flush 3 Ml Syringe) 3 ml IVFLUSH QSHIFT [facility] Home Medications ?Medication ?Instructions ?Recorded ?Confirmed ?Last Taken ?Type cholecalciferol (vitamin D3) 50 50 mcg PO DAILY 04/27/20 06/23/24 05/29/22 History mcg (2,000 unit) capsule (Vitamin D3) ursodiol 500 mg tablet 1,000 mg PO DAILY 04/27/20 06/23/24 05/29/22 History valsartan 160 1 tab PO DAILY 04/27/20 06/23/24 05/29/23 04:45 History mg-hydrochlorothiazide 12.5 mg tablet atorvastatin 20 mg tablet 20 mg PO DAILY 08/08/23 06/23/24 Unknown History levothyroxine 100 mcg tablet 100 mcg PO QAM 08/08/23 06/23/24 Unknown History omeprazole 40 mg capsule,delayed 40 mg PO DAILY 08/08/23 06/23/24 Unknown History release Physical Exam 2 Vital Signs and Narrative: Vital Signs: Last Vital Signs Temp 98.7 F 06/23/24 22:56 Pulse 96 06/24/24 00:03 Resp 18 06/24/24 00:03 BP 91/49 L 06/24/24 00:03 Pulse Ox 96 06/24/24 00:03 O2 Del Method Room Air 06/24/24 00:03 BMI result Body Mass Index 29.9 General: AOx3, no acute distress Resp: CTA bilaterally CVS: tachy, +murmur GI: +BS, NT, no distention Skin: Warm, dry Neuro: Cranial nerves II-XII grossly intact bilaterally. Motor grossly intact bilaterally Extremities: No LE edema Psych: Appropriate affect Const: General: No confusion Orientation/consciousness: No confusion Eyes: Direct Ophthalmoscopy: No photophobia Neuro: General: No confusion Results Labs 06/23/24 18:31 06/23/24 15:44 Labs: Laboratory Results - last 24 hr 06/23/24 06/23/24 06/23/24 15:44 16:01 17:10 MCV 75.8 L MCH 22.6 L MCHC 29.8 L RDW 15.1 Plt Count 123 L MPV 11.7 Immature Gran % (Auto) 0.5 H Neut % (Auto) 68.5 Lymph % (Auto) 20.8 [place] % (Auto) 8.0 Eos % (Auto) 1.7 Baso % (Auto) 0.5 Lymph # (Auto) 1.2 [place] # (Auto) 0.5 Eos # (Auto) 0.1 Baso # (Auto) 0.0 Abs Immat Gran (auto) 0.03 Absolute Neuts (auto) 4.0 Absolute Nucleated RBC 0.000 Nucleated RBC % (auto) 0.0 Smear Tech's Comments VERIFIED PT 12.7 H INR 1.1 Anion Gap 14 Estim Creat Clear Calc 55.0 Estimated GFR 59 Random Glucose 129 H Calcium 9.2 Magnesium 1.7 Iron 14 L TIBC 340 % Saturation 4 L Unsat Iron Binding 326 Total Bilirubin 0.5 AST 22 ALT 8 Alkaline Phosphatase 53 Troponin I High Sens 212.8 H* B-Natriuretic Peptide 441 H Total Protein 6.5 Albumin 3.8 Urine Color Yellow Urine Appearance Cloudy Urine pH 6.0 Ur Specific [place] 1.020 Urine Protein 100 (2+) H Urine Glucose (UA) Negative Urine Ketones Negative Urine Blood Moderate (2+) H Urine Nitrite Positive H Ur Leukocyte Esterase Moderate (2+) H Urine RBC 11-20 H Urine WBC >50 H Ur Squamous Epith Cells 0-2 Urine Bacteria 4+ Hyaline Casts 3-5 Blood Type O Negative Antibody Screen NEGATIVE Crossmatch See Detail 06/23/24 18:31 MCV 75.9 L MCH 22.3 L MCHC 29.3 L RDW 15.1 Plt Count 89 L D MPV 11.3 Immature Gran % (Auto) Neut % (Auto) Lymph % (Auto) [place] % (Auto) Eos % (Auto) Baso % (Auto) Lymph # (Auto) [place] # (Auto) Eos # (Auto) Baso # (Auto) Abs Immat Gran (auto) Absolute Neuts (auto) Absolute Nucleated RBC 0.000 Nucleated RBC % (auto) 0.0 Smear Tech's Comments PT INR Anion Gap Estim Creat Clear Calc Estimated GFR Random Glucose Calcium Magnesium Iron TIBC % Saturation Unsat Iron Binding Total Bilirubin AST ALT Alkaline Phosphatase Troponin I High Sens 203.1 H* B-Natriuretic Peptide Total Protein Albumin Urine Color Urine Appearance Urine pH Ur Specific [place] Urine Protein Urine Glucose (UA) Urine Ketones Urine Blood Urine Nitrite Ur Leukocyte Esterase Urine RBC Urine WBC Ur Squamous Epith Cells Urine Bacteria Hyaline Casts Blood Type Antibody Screen Crossmatch Assessment and Plan (1) Severe anemia: Status: Acute (2) Heme positive stool: Status: Acute (3) Thrombocytopenia: Status: Acute (4) Urinary tract infection: Status: Acute Plan Patient is a 70-year-old female with a past medical history significant for severe aortic stenosis, HLD, hypothyroid, GERD/hx Ennis's esophagus, ?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 Sent here by her datapower developer for a stat echo, which showed severe as previous. Hgb 5.7 and 4.9 prior to transfusion. 2 U PRBC ordered. FOBT positive. A/P CT bleed scan normal. LFTs normal and no mention of cirrhosis on imaging. ABLA/thrombocytopenia - hgb 5.7, 4.9 on repeat - 2U PRBC given, recheck H+H after transfusion - A/P CT bleed scan negative - heme + stool test - trop x2 elevated due to demand ischemia - GI consult and hematology consult due to thrombocytopenia - given pantoprazole 80mg IV x1, continue 40mg BID - NPO - monitor CBC UTI - UA +, culture pending - started on ceftriaxone in ED, continue HLD - continue statin hypothyroid - continue levothyroxine GERD/hx Ennis's - pantoprazole as above ?cirrhosis - LFTs normal - imagaging not suggestive of advanced liver disease - continue ursodiol - GI consult as above Full code VTE prophy: pneumoboots Pt with ABLA and throbocytpenia requiring admission for blood transfusion, monitoring and further w/u. Quality Stroke Does the patient have a stroke diagnosis?: No VTE Prior VTE?: No VTE Risk Level:: Medical - moderate - high VTE Device Contraindication: N/A - Device Ordered VTE Drug Contraindication: Treatment Not Indicated
[2024-06-24 00:35] LABS: Immature Retic Fraction 18.4 % (3.0-15.9); Retic HGB Equivalent 16.7 pg (30.0-35.0); Reticulocyte Percent 2.6 % (0.5-1.8); Reticulocytes Absolute 0.058 X10*6/uL (0.026-0.095)
--- NOTE | 2024-06-24 02:30 | PC.NURSE ---
pt completed 2 units prbc with no difficutly. sat 96%.
[2024-06-24 03:06] LABS: Hematocrit 22.9 % (37.0-47.0); Hemoglobin 7.1 g/dl (12.0-16.0)
--- NOTE | 2024-06-24 04:43 | P.CNHO_ITS ---
Subjective - Subjective Chief complaint: anemia Patient: new to practice Consult date: 06/24/24 Primary Care Provider: Christian Lewis MD Furnace Stock Inspector Utilized?: No - Bahamian Speaking HPI - Consult Narrative Reason for consult: anemia Narrative: Mary Lou Celestin is a 78 year old female with known critical aortic stenosis and valve area of .81 presents with dyspnea. Hematocrit is 16. Stool is brown and guaiac positive in the ER. WBC is wnl but platelets are low. MCV is low. Review of old labs shows longstanding thrombocytopenia and anemia and microcygtosis. Ferritin has been wnl. She had a negative colonoscopy a year ago at [facility]. Thfere is no history of hemetemesis or bleeding. She is being transfused.Thecurret ferritin is 10. Review of Systems - Constitutional Reports fatigue - ENT Reports other - Cardiovascular Reports fast heart rate - Respiratory Reports dyspnea - Gastrointestinal Reports other - Genitourinary Reports absent period - Musculoskeletal Reports muscle weakness - Neurologic Denies confusion, Denies headache(s) [facility] Medical History: Medical History (Last Reviewed 06/23/24 @ 15:22 by Maykel Soto NP) Aortic stenosis Elevated cholesterol Fatty liver GERD (gastroesophageal reflux disease) History of Ennis's esophagus HTN (hypertension) Hypothyroid Obesity Functional capacity: independent ambulation Family History: Family History (Last Reviewed 06/23/24 @ 15:22 by Maykel Soto NP) Father Heart problem Surgical History: Surgical History (Last Reviewed 06/23/24 @ 15:22 by Maykel Soto NP) History of esophagogastroduodenoscopy (EGD) History of Yan fundoplication Hx of brain surgery Hx of colonoscopy Social History: Social History (Last Reviewed 06/23/24 @ 15:22 by Maykel Soto NP) Living Situation History: Household Members: None Housing: House Do you presently have visiting nurse or other home services: No Alcohol History Details: 1. How often do you have a drink containing alcohol?: b. Monthly or less 3. How often do you have six or more drinks on one occasion?: a. Never AUDIT-C Alcohol total score: 1 Last drink: Unknown Currently Displaying Signs/Symptoms of Alcohol Withdrawal: No Tobacco History: Patient Tobacco Use Status: Former Tobacco user Tobacco use type: Cigarette Smoked in Last 30 Days: No Second Hand Smoke Exposure: No Substance Use History: Use of substances other than those prescribed or required for medical reasons : No Currently Displaying Signs/Symptoms of Drug Intoxication Withdrawal: No Domestic Abuse History: Have you been hit, kicked, punched, or otherwise hurt by someone within the past year? If so, by whom?: No Do you feel safe in your current relationship?: No Current Relationship Is there a partner from a previous relationship who is making you feel unsafe now?: No Are you made to feel afraid or neglected: No Advance Directives: Advance Directives: No Advance Directives Information Provided: Yes Homicidal Assessment: Do you have a plan to hurt others: No Plan Nutrition Assessment: Recently lost weight without trying: Unsure How much weight loss: Unsure Eating poorly because of decreased appetite: No Nutrition screen score: 4 Nutrition Risks: No Nutritional Risk Patient : No : No Poor oral hygiene: No Occupation Assessmet: service: No Home Medications and Allergies Current Medications: Current Medications Acetaminophen (Acetaminophen 325 Mg Tablet) 975 mg PO Q6H PRN PRN Reason: Pain, Mild 1-3,fever,headache Calcium Carbonate (Calcium Carbonate 750 Mg Tab.Chew) 750 mg PO Q4H PRN PRN Reason: Heartburn Ceftriaxone Sodium (Ceftriaxone Sodium 1 Gm Vial) 1 gm IVPUSH BEDTIME [facility] Magnesium Hydroxide (Milk Of Magnesia 30 Ml Oral.Susp) 30 ml PO DAILY PRN PRN Reason: Constipation Melatonin (Melatonin 3 Mg Tablet) 6 mg PO BEDTIME PRN PRN Reason: Insomnia Ondansetron HCl (Ondansetron Hcl 4 Mg/2 Ml Vial) 4 mg IVPUSH Q8H PRN PRN Reason: Nausea and Vomiting Pantoprazole Sodium (Pantoprazole Sodium 40 Mg/10 Ml Vial) 40 mg IVPUSH BID@0630,1630 [facility] Polyethylene Glycol (Polyethylene Glycol 3350 17 Gm Powd.Pack) 17 gm PO DAILY PRN PRN Reason: Constipation Sodium Chloride (0.9 % Sodium Chloride Flush 3 Ml Syringe) [facility] Last Admin: 06/24/24 02:50 Dose: Not Given Home Medications ?Medication ?Instructions ?Recorded ?Confirmed ?Type cholecalciferol (vitamin D3) 50 50 mcg PO DAILY 04/27/20 06/24/24 History mcg (2,000 unit) capsule (Vitamin D3) ursodiol 500 mg tablet 1,000 mg PO DAILY 04/27/20 06/24/24 History valsartan 160 1 tab PO DAILY 04/27/20 06/24/24 History mg-hydrochlorothiazide 12.5 mg tablet atorvastatin 20 mg tablet 20 mg PO BEDTIME 08/08/23 06/24/24 History levothyroxine 100 mcg tablet 100 mcg PO DAILY@0600 08/08/23 06/24/24 History omeprazole 40 mg capsule,delayed 40 mg PO BID@0630,1630 06/24/24 06/24/24 History release ursodiol 500 mg tablet 500 mg PO BEDTIME 06/24/24 06/24/24 History Allergies Allergy/AdvReac Type Severity Reaction Status Date / Time No Known Allergies Allergy Verified 06/23/24 15:27 [No Known Allergies*] Physical Exam Vital signs: Vital Signs Temp 98 F 06/24/24 04:00 Pulse 98 06/24/24 04:00 Resp 16 06/24/24 04:00 BP 104/57 L 06/24/24 04:00 Pulse Ox 94 06/24/24 04:00 O2 Del Method Room Air 06/24/24 04:00 Intake & Output 06/23/24 06/23/24 06/24/24 06:59 18:59 06:59 Intake Total 0 / 700 700 / 700 Balance 0 / 700 700 / 700 Intake: Intake (Blood Product) Amount 0 / 700 700 / 700 Red Blood Cells (E0336) Unit 0 / 350 350 / 350 [id number] Red Blood Cells (E0336) Unit 350 / 350 [id number] Other: Last Bowel Movement 06/23/24 Weight 83.915 kg 84.9 kg Weight in Grams 37923 Weight 84.9 kg - Constitutional Present: no acute distress - Routine HEENT Exam Head: Present: atraumatic, normal inspection ENT: Present: mucous membranes moist - Routine Neck Exam Present: supple - Routine Respiratory Exam Present: decreased breath sounds - Routine Cardiovascular Exam Cardiovascular: Present: RRR - Routine Psychiatric Exam Present: normal mood Hem/Onc Consult Result - Labs CBC & Chem 7: 06/24/24 06:49 06/24/24 06:49 Labs: Short CBC 06/23/24 06/23/24 06/24/24 Range/Units 15:44 18:31 03:02 WBC 5.9 3.5 L (4.8-10.8) X10*3/uL Hgb 5.7 L* D 4.9 L* 7.1 L D (12.0-16.0) g/dl Hct 19.1 L* D 16.7 L* 22.9 L D (37.0-47.0) % Plt Count 123 L 89 L D (160-400) X10*3/uL BMP 06/23/24 15:44 Sodium 139 Potassium 3.4 Chloride 105 Carbon Dioxide 23 BUN 21 H Creatinine 0.92 Calcium 9.2 Liver Function 06/23/24 Range/Units 15:44 Total Bilirubin 0.5 (0.0-1.0) mg/dL AST 22 (5-31) U/L ALT 8 (0-31) U/L Alkaline Phosphatase 53 (39-117) U/L Albumin 3.8 (3.5-5.0) g/dL Urine 06/23/24 Range/Units 16:01 Urine Color Yellow Urine Appearance Cloudy Urine pH 6.0 (5.0-9.0) Ur Specific [place] 1.020 (1.005-1.025) Urine Protein 100 (2+) H (Neg-Trace) mg/dL Urine Glucose (UA) Negative (Negative) mg/dL Assessment and Plan Patient Active problem list reviewed?: Yes (1) Severe anemia Start date: 06/24/24 Status: Acute Assessment and plan: Her symptoms see related to the anemia. This is the picture of half-way chronic GI blood loss and iron deficiency. She had a negative [id number] months ago. I recomend evaluation for angiodysplasi or AVM of the GI tract. She should do well on oral iron therapy and folic acid 1.0 mg daily. Irecommend a hematology consult to see if intravenous iron would be of more benefit. - Time Spent With Patient Time Spent with Patient (in minutes): 30
[2024-06-24] MEDS: Pantoprazole Sodium 40 MG/10 ML VIAL IVPUSH ×2 (06:31→17:23)
[2024-06-24 07:26] LABS: MANUAL DIFF FLAG NO
[2024-06-24 07:33] LABS: Basophils Percent Auto 0.4 % (0-2); Eosinophils Absolute Auto 0.1 X10*3/uL (0.0-0.4); Eosinophils Percent Auto 2.4 % (0-4); Hematocrit 24.1 % (37.0-47.0); Hemoglobin 7.6 g/dl (12.0-16.0); Imm Gran Abs Auto 0.02 X10*3/uL (0.00-0.03); Imm Gran Pct Auto 0.4 % (0.0-0.4); Lymphocytes Percent Auto 20.6 % (20-40); Mean Corpuscular HGB Conc 31.5 g/dl (31.0-35.0); Mean Corpuscular Hemoglobin 25.2 pg (27.0-33.0); Mean Corpuscular Volume 80.1 fL (80.0-98.0); Mean Platelet Volume 11.9 fL (9.4-12.3); Monocytes Absolute Auto 0.4 X10*3/uL (0.1-1.2); Monocytes Percent Auto 7.8 % (2-11); Neutrophils Absolute Auto 3.2 x10*3/uL (2.0-8.3); Neutrophils Percent Auto 68.4 % (45-73); Platelet Count 89 X10*3/uL (160-400); Red Blood Count 3.01 X10*6/uL (4.20-5.50); Red Cell Distribution Width 16.7 % (11.0-16.0); White Blood Count 4.6 X10*3/uL (4.8-10.8)
[2024-06-24 07:54] LABS: Alanine Aminotransferase 9 U/L (0-31); Albumin Level 3.5 g/dL (3.5-5.0); Alkaline Phosphatase 49 U/L (39-117); Anion Gap 11 (12-20); Aspartate Amino Transferase 24 U/L (5-31); Bilirubin Total 0.8 mg/dL (0.0-1.0); Blood Urea Nitrogen 18 mg/dL (9-16); Calcium 8.8 mg/dL (8.4-10.2); Carbon Dioxide 24 mmol/L (22-29); Chloride 107 mmol/L (96-108); Estimated Glomerular Filt Rate > 60; Glucose Random 108 mg/dL (60-115); Potassium 3.8 mmol/L (3.3-5.1); Sodium 138 mmol/L (135-145); Total Protein 5.8 g/dL (6.5-8.0)
[2024-06-24] MEDS: 0.9 % Sodium Chloride Flush 3 ML SYRINGE IVFLUSH ×3 (08:30→21:34)
--- NOTE | 2024-06-24 09:09 | MHC.CM.PN ---
IMM 06/24/24, EMR REVIEWED, PT W/ACUTE BLOOS LOSS ANEMIA, CM MET W.PT WHO IS A&O, PT REPORTS SHE LIVES ALONE, IS FULLY INDEP W/ALL CARE, DENIES USE OF DME/SERVICES, DOES HAVE A CANE AT HOME IF NEEDED, PT'S CAR IS [employer] LOT AND PT WILL DRIVE SELF HOME, PT'S GOAL IS DC TODAY. PT VERIFIES OCO IS DR. JUAREZ AND PT REPORTS SHE HAS A HCP SHE DID W/HER SUSTAINABILITY SPECIALIST AND HCP IS PRIMARY CONTACT AMOR ROSENBERG, COPY REQUESTED.
[2024-06-24 09:25] LABS: Ferritin 10 ng/mL (10-250)
--- NOTE | 2024-06-24 09:43 | PHA.MEDREC ---
Addendum entered by Selam Calzada RPh 06/24/24 09:53: med rec reviewed by nicko Original Note: Pharmacy Consult ? Medication Reconciliation Pharmacy has completed the medication reconciliation. Spoke to patient to confirm med list. Patient had a list of medications with her. Patient states she only had her morning meds yesterday.
--- NOTE | 2024-06-24 10:08 | PM.CNCAR ---
History of Present Illness History of Present Illness Date of Service: 06/24/24 Requesting physician: Mauro Santacruz Chief complaint: ABLA, severe aortic valve stenosis. Narrative: [age] year female who had [id number] aortic valve stenosis in the past, severe mitral annual calcification and hypertension who came to clinic yesterday with shortness of breath ongoing for 3 weeks. She said she was short of breath before that but there was significant change in the last 3 weeks. She has been experiencing black stools for long time and always thought that they are due to iron supplements that she has been taking for years. She said she has chronic iron-deficiency diagnosed by her primary care physician and she was taking iron supplements for long time. She was sent to the emergency department and blood workup has shown significant anemia. She has been given blood with improvement in symptoms to some extent but she continues to be significantly fatigued and short of breath. Echocardiography has shown severe aortic valve stenosis. She is denying chest discomfort. No palpitations. Currently off her blood pressure medications because she was hypotensive yesterday but overall blood pressures are borderline right now but she is asymptomatic. [facility] Past Medical History Medical History Aortic stenosis Obesity Hypothyroid Fatty liver History of Ennis's esophagus GERD (gastroesophageal reflux disease) Elevated cholesterol HTN (hypertension) Family History Family History Father Heart problem Surgical History Surgical History Hx of brain surgery History of esophagogastroduodenoscopy (EGD) Hx of colonoscopy History of Yan fundoplication Social History Social History Household Members: None Housing: House Do you presently have visiting nurse or other home services: No Alcohol intake: current Alcohol intake frequency: holidays/special occasions only Patient Tobacco Use Status: Former Tobacco user Tobacco use type: Cigarette Smoked in Last 30 Days: No Second Hand Smoke Exposure: No Use of substances other than those prescribed or required for medical reasons: No Currently Displaying Signs/Symptoms of Drug Intoxication Withdrawal: No Have you been hit, kicked, punched, or otherwise hurt by someone within the past year? If so, by whom?: No Do you feel safe in your current relationship?: No Current Relationship Is there a partner from a previous relationship who is making you feel unsafe now?: No Are you made to feel afraid or neglected: No Advance Directives: No Advance Directives Information Provided: Yes Do you have a plan to hurt others: No Plan Recently lost weight without trying: Unsure How much weight loss: Unsure Eating poorly because of decreased appetite: No Nutrition screen score: 4 Nutrition Risks: No Nutritional Risk Patient : No : No Poor oral hygiene: No service: No Meds Allergies Allergy/AdvReac Type Severity Reaction Status Date / Time No Known Allergies Allergy Verified 06/23/24 15:27 [No Known Allergies*] Active Medications: Current Medications Acetaminophen (Acetaminophen 325 Mg Tablet) 975 mg PO Q6H PRN PRN Reason: Pain, Mild 1-3,fever,headache Atorvastatin Calcium (Atorvastatin Calcium 20 Mg Tablet) 20 mg PO BEDTIME [facility] Calcium Carbonate (Calcium Carbonate 750 Mg Tab.Chew) 750 mg PO Q4H PRN PRN Reason: Heartburn Ceftriaxone Sodium (Ceftriaxone Sodium 1 Gm Vial) 1 gm IVPUSH BEDTIME [facility] Levothyroxine Sodium (Levothyroxine Sodium 100 Mcg Tablet) 100 mcg PO DAILY@0600 [facility] Magnesium Hydroxide (Milk Of Magnesia 30 Ml Oral.Susp) 30 ml PO DAILY PRN PRN Reason: Constipation Melatonin (Melatonin 3 Mg Tablet) 6 mg PO BEDTIME PRN PRN Reason: Insomnia Non-Formulary Medication (Ursodiol) 1,000 mg PO DAILY [facility] Non-Formulary Medication (Ursodiol) 500 mg PO BEDTIME [facility] Ondansetron HCl (Ondansetron Hcl 4 Mg/2 Ml Vial) 4 mg IVPUSH Q8H PRN PRN Reason: Nausea and Vomiting Pantoprazole Sodium (Pantoprazole Sodium 40 Mg/10 Ml Vial) 40 mg IVPUSH BID@0630,1630 [facility] Last Admin: 06/24/24 06:31 Dose: 40 mg Polyethylene Glycol (Polyethylene Glycol 3350 17 Gm Powd.Pack) 17 gm PO DAILY PRN PRN Reason: Constipation Sodium Chloride (0.9 % Sodium Chloride Flush 3 Ml Syringe) 3 ml IVFLUSH QSHIFT [facility] Last Admin: 06/24/24 02:50 Dose: Not Given Vitamin D (Cholecalciferol (Vitamin D3) 25 Mcg Tablet) 50 mcg PO DAILY [facility] Home Medications ?Medication ?Instructions ?Recorded ?Confirmed ?Last Taken ?Type cholecalciferol (vitamin D3) 50 50 mcg PO DAILY 04/27/20 06/24/24 06/23/24 History mcg (2,000 unit) capsule (Vitamin D3) ursodiol 500 mg tablet 1,000 mg PO DAILY 04/27/20 06/24/24 06/23/24 History valsartan 160 1 tab PO DAILY 04/27/20 06/24/24 06/23/24 History mg-hydrochlorothiazide 12.5 mg tablet atorvastatin 20 mg tablet 20 mg PO BEDTIME 08/08/23 06/24/24 06/22/24 History levothyroxine 100 mcg tablet 100 mcg PO DAILY@0600 08/08/23 06/24/24 06/23/24 History omeprazole 40 mg capsule,delayed 40 mg PO BID@0630,1630 06/24/24 06/24/24 06/23/24 History release ursodiol 500 mg tablet 500 mg PO BEDTIME 06/24/24 06/24/24 06/22/24 History Physical Exam Vital Signs: Vital Signs: Last Vital Signs Temp 97.6 F 06/24/24 07:24 Pulse 92 06/24/24 07:24 Resp 18 06/24/24 07:24 BP 97/55 L 06/24/24 07:24 Pulse Ox 92 06/24/24 07:24 O2 Del Method Room Air 06/24/24 07:24 BMI result Body Mass Index 30.2 GENERAL APPEARANCE: in no acute distress, pleasant. NECK: no carotid bruit, no jugular venous distention. SKIN: no suspicious lesions, warm and dry. HEART: Ejection systolic murmur aortic area with absent 2nd heart sound, regular rate and rhythm. LUNGS: Few crackles at bases. ABDOMEN: soft, nontender. EXTREMITIES: no edema. PERIPHERAL PULSES: equal. NEUROLOGIC: No gross deficits, AAO X 3 Objective Labs and Meds 06/24/24 06:49 06/24/24 06:49 Lab results: Laboratory Results - last 24 hr 06/23/24 06/23/24 06/23/24 15:44 16:01 17:10 WBC 5.9 RBC 2.52 L D Hgb 5.7 L* D Hct 19.1 L* D MCV 75.8 L MCH 22.6 L MCHC 29.8 L RDW 15.1 Plt Count 123 L MPV 11.7 Immature Gran % (Auto) 0.5 H Neut % (Auto) 68.5 Lymph % (Auto) 20.8 [place] % (Auto) 8.0 Eos % (Auto) 1.7 Baso % (Auto) 0.5 Lymph # (Auto) 1.2 [place] # (Auto) 0.5 Eos # (Auto) 0.1 Baso # (Auto) 0.0 Abs Immat Gran (auto) 0.03 Absolute Neuts (auto) 4.0 Absolute Nucleated RBC 0.000 Nucleated RBC % (auto) 0.0 Smear Tech's Comments VERIFIED Absolute Retic Cancelled Percent Retic Cancelled Immature Retic Fraction Cancelled Retic Hgb Equivalent Cancelled PT 12.7 H INR 1.1 Sodium 139 Potassium 3.4 Chloride 105 Carbon Dioxide 23 Anion Gap 14 BUN 21 H Creatinine 0.92 Estim Creat Clear Calc 55.0 Estimated GFR 59 Random Glucose 129 H Calcium 9.2 Magnesium 1.7 Iron 14 L TIBC 340 % Saturation 4 L Unsat Iron Binding 326 Ferritin 10 Total Bilirubin 0.5 AST 22 ALT 8 Alkaline Phosphatase 53 Troponin I High Sens 212.8 H* B-Natriuretic Peptide 441 H Total Protein 6.5 Albumin 3.8 Urine Color Yellow Urine Appearance Cloudy Urine pH 6.0 Ur Specific [place] 1.020 Urine Protein 100 (2+) H Urine Glucose (UA) Negative Urine Ketones Negative Urine Blood Moderate (2+) H Urine Nitrite Positive H Ur Leukocyte Esterase Moderate (2+) H Urine RBC 11-20 H Urine WBC >50 H Ur Squamous Epith Cells 0-2 Urine Bacteria 4+ Hyaline Casts 3-5 Blood Type O Negative Antibody Screen NEGATIVE Crossmatch See Detail 06/23/24 06/24/24 06/24/24 18:31 03:02 06:49 WBC 3.5 L 4.6 L RBC 2.20 L 3.01 L D Hgb 4.9 L* 7.1 L D 7.6 L Hct 16.7 L* 22.9 L D 24.1 L MCV 75.9 L 80.1 MCH 22.3 L 25.2 L MCHC 29.3 L 31.5 RDW 15.1 16.7 H Plt Count 89 L D 89 L MPV 11.3 11.9 Immature Gran % (Auto) 0.4 Neut % (Auto) 68.4 Lymph % (Auto) 20.6 [place] % (Auto) 7.8 Eos % (Auto) 2.4 Baso % (Auto) 0.4 Lymph # (Auto) 1.[address] [place] # (Auto) 0.4 Eos # (Auto) 0.1 Baso # (Auto) 0.0 Abs Immat Gran (auto) 0.02 Absolute Neuts (auto) 3.2 Absolute Nucleated RBC 0.000 0.000 Nucleated RBC % (auto) 0.0 0.0 Smear Tech's Comments Absolute Retic 0.058 Percent Retic 2.6 H Immature Retic Fraction 18.4 H Retic Hgb Equivalent 16.7 L PT INR Sodium 138 Potassium 3.8 Chloride 107 Carbon Dioxide 24 Anion Gap 11 L BUN 18 H Creatinine 0.77 Estim Creat Clear Calc 66.0 Estimated GFR > 60 Random Glucose 108 Calcium 8.8 Magnesium Iron TIBC % Saturation Unsat Iron Binding Ferritin Total Bilirubin 0.8 AST 24 ALT 9 Alkaline Phosphatase 49 Troponin I High Sens 203.1 H* B-Natriuretic Peptide Total Protein 5.8 L Albumin 3.5 Urine Color Urine Appearance Urine pH Ur Specific [place] Urine Protein Urine Glucose (UA) Urine Ketones Urine Blood Urine Nitrite Ur Leukocyte Esterase Urine RBC Urine WBC Ur Squamous Epith Cells Urine Bacteria Hyaline Casts Blood Type Antibody Screen Crossmatch Assessment and Plan (1) Aortic stenosis: Status: Acute (2) Severe anemia: Status: Acute Plan Pleasant 78 year female with severe aortic valve stenosis and anemia. She presented with shortness of breath from combination of anemia and severe . She has been transfused and overall clinically appears to be stable. She is still quite short of breath but it continues to be significantly anemic. I think she will benefit from 1 more unit of blood. She should get 20 mg of Lasix with the unit of blood to be transfused. GI workup for understanding the cause for bleeding. A lot of time severe patients can have small bowel AV malformations which can lead to slow blood loss. In any case if there is an obvious treatable cause found we will take care of it. I have discussed with her about further workup for aortic valve stenosis and we will discuss it in more detail as we have clarity about her GI issues. Thank you for allowing me to participate in the care of your patient. Please feel free to contact me if you have any questions. Procedures Date of Service Date of Service: 06/24/24
[2024-06-24 10:51] LABS: Folate 10.4 ng/mL (> or = 4.0); Vitamin B12 151 pg/mL (200-900)
--- NOTE | 2024-06-24 11:41 | P.PNIM_ITS ---
Subjective Subjective Date of Service: 06/24/24 Interval History: No hematemesis, hematochezia, or melena. No abd pain. Dyspnea improved. Review of Systems Review of Systems: Yes all other systems are reviewed and are negative Physical Exam 2 Vital Signs: Vital Signs: Last Vital Signs Temp 97.7 F 06/24/24 11:11 Pulse 87 06/24/24 11:11 Resp 18 06/24/24 11:11 BP 88/45 L 06/24/24 11:11 Pulse Ox 95 06/24/24 10:58 O2 Del Method Room Air 06/24/24 10:58 BMI result Body Mass Index 30.2 Gen: in no acute distress HEENT: sclera anicteric, moist mucus membranes Neck: supple Lungs: clear to auscultation bilaterally Heart: regular rate and rhythm, 3/6 systolic murmur at base Abd: soft, non-tender, non-distended Ext: no edema Skin: warm/well-perfused Neuro: alert and oriented x3, no focal findings Psych: appropriate affect Objective Data Active Medications Acetaminophen (Acetaminophen 325 Mg Tablet) 975 mg PO Q6H PRN PRN Reason: Pain, Mild 1-3,fever,headache Atorvastatin Calcium (Atorvastatin Calcium 20 Mg Tablet) 20 mg PO BEDTIME [facility] Calcium Carbonate (Calcium Carbonate 750 Mg Tab.Chew) 750 mg PO Q4H PRN PRN Reason: Heartburn Ceftriaxone Sodium (Ceftriaxone Sodium 1 Gm Vial) 1 gm IVPUSH BEDTIME [facility] Levothyroxine Sodium (Levothyroxine Sodium 100 Mcg Tablet) 100 mcg PO DAILY@0600 [facility] Magnesium Hydroxide (Milk Of Magnesia 30 Ml Oral.Susp) 30 ml PO DAILY PRN PRN Reason: Constipation Melatonin (Melatonin 3 Mg Tablet) 6 mg PO BEDTIME PRN PRN Reason: Insomnia Non-Formulary Medication (Ursodiol) 1,000 mg PO DAILY [facility] Non-Formulary Medication (Ursodiol) 500 mg PO BEDTIME [facility] Ondansetron HCl (Ondansetron Hcl 4 Mg/2 Ml Vial) 4 mg IVPUSH Q8H PRN PRN Reason: Nausea and Vomiting Pantoprazole Sodium (Pantoprazole Sodium 40 Mg/10 Ml Vial) 40 mg IVPUSH BID@0630,1630 [facility] Last Admin: 06/24/24 06:31 Dose: 40 mg Documented By: JANICE Polyethylene Glycol (Polyethylene Glycol 3350 17 Gm Powd.Pack) 17 gm PO DAILY PRN PRN Reason: Constipation Sodium Chloride (0.9 % Sodium Chloride Flush 3 Ml Syringe) 3 ml IVFLUSH QSHIFT [facility] Last Admin: 06/24/24 02:50 Dose: Not Given Documented By: [place] Non-Admin Reason: IV Running Vitamin D (Cholecalciferol (Vitamin D3) 25 Mcg Tablet) 50 mcg PO DAILY [facility] Labs 06/24/24 06:49 06/24/24 06:49 Labs: Laboratory Results - last 24 hr 06/23/24 06/23/24 06/23/24 15:44 16:01 17:10 MCV 75.8 L MCH 22.6 L MCHC 29.8 L RDW 15.1 Plt Count 123 L MPV 11.7 Immature Gran % (Auto) 0.5 H Neut % (Auto) 68.5 Lymph % (Auto) 20.8 [place] % (Auto) 8.0 Eos % (Auto) 1.7 Baso % (Auto) 0.5 Lymph # (Auto) 1.2 [place] # (Auto) 0.5 Eos # (Auto) 0.1 Baso # (Auto) 0.0 Abs Immat Gran (auto) 0.03 Absolute Neuts (auto) 4.0 Absolute Nucleated RBC 0.000 Nucleated RBC % (auto) 0.0 Smear Tech's Comments VERIFIED Absolute Retic Cancelled Percent Retic Cancelled Immature Retic Fraction Cancelled Retic Hgb Equivalent Cancelled PT 12.7 H INR 1.1 Anion Gap 14 Estim Creat Clear Calc 55.0 Estimated GFR 59 Random Glucose 129 H Calcium 9.2 Magnesium 1.7 Iron 14 L TIBC 340 % Saturation 4 L Unsat Iron Binding 326 Ferritin 10 Total Bilirubin 0.5 AST 22 ALT 8 Alkaline Phosphatase 53 Troponin I High Sens 212.8 H* B-Natriuretic Peptide 441 H Total Protein 6.5 Albumin 3.8 Vitamin B12 Folate Urine Color Yellow Urine Appearance Cloudy Urine pH 6.0 Ur Specific [place] 1.020 Urine Protein 100 (2+) H Urine Glucose (UA) Negative Urine Ketones Negative Urine Blood Moderate (2+) H Urine Nitrite Positive H Ur Leukocyte Esterase Moderate (2+) H Urine RBC 11-20 H Urine WBC >50 H Ur Squamous Epith Cells 0-2 Urine Bacteria 4+ Hyaline Casts 3-5 Blood Type O Negative Antibody Screen NEGATIVE Crossmatch See Detail 06/23/24 06/24/24 06/24/24 18:31 06:49 09:43 MCV 75.9 L 80.1 MCH 22.3 L 25.2 L MCHC 29.3 L 31.5 RDW 15.1 16.7 H Plt Count 89 L D 89 L MPV 11.3 11.9 Immature Gran % (Auto) 0.4 Neut % (Auto) 68.4 Lymph % (Auto) 20.6 [place] % (Auto) 7.8 Eos % (Auto) 2.4 Baso % (Auto) 0.4 Lymph # (Auto) 1.0 L [place] # (Auto) 0.4 Eos # (Auto) 0.1 Baso # (Auto) 0.0 Abs Immat Gran (auto) 0.02 Absolute Neuts (auto) 3.2 Absolute Nucleated RBC 0.000 0.000 Nucleated RBC % (auto) 0.0 0.0 Smear Tech's Comments Absolute Retic 0.058 Percent Retic 2.6 H Immature Retic Fraction 18.4 H Retic Hgb Equivalent 16.7 L PT INR Anion Gap 11 L Estim Creat Clear Calc 66.0 Estimated GFR > 60 Random Glucose 108 Calcium 8.8 Magnesium Iron TIBC % Saturation Unsat Iron Binding Ferritin Total Bilirubin 0.8 AST 24 ALT 9 Alkaline Phosphatase 49 Troponin I High Sens 203.1 H* B-Natriuretic Peptide Total Protein 5.8 L Albumin 3.5 Vitamin B12 151 L Folate 10.4 Urine Color Urine Appearance Urine pH Ur Specific [place] Urine Protein Urine Glucose (UA) Urine Ketones Urine Blood Urine Nitrite Ur Leukocyte Esterase Urine RBC Urine WBC Ur Squamous Epith Cells Urine Bacteria Hyaline Casts Blood Type Antibody Screen Crossmatch Assessment and Plan (1) Aortic stenosis: Status: Acute Assessment and Plan: d2 for 78yo F with fatty liver, chronic anemia; 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 FOBT positive. CT A/P bleeding scan normal. acute blood loss anemia - transfuse another 1u pRBCs [got 2u already]; Hb 7.6 this AM - GI consulted; plan EGD tomorrow and if negative small bowel capsule endoscopy [had normal colonoscopy 1 yr ago] - continue IV PPI - will give IV iron pancytopenia B12 deficiency - check anti-IF and anti-parietal cell antibody and replete B12 1000 mcg IM daily x7d then weekly x1mo then monthly severe - Cardiology consulted; plan outpt eval for TAVR hypotension - likely due to anemia; transfuse 1u pRBCs and HOLD valsartan-HCTZ UTI - UA +, culture pending - started on ceftriaxone in ED, continue HLD - continue statin hypothyroid - continue levothyroxine HTN - HOLD antihypertensives as above GERD/hx Ennis's - pantoprazole as above VTE ppx - SCDs, no heparin given anemia/GIB? dispo - eventual home In my clinical judgment, the patient requires continued inpatient hospitalization for the following reasons: EGD Quality Stroke Does the patient have a stroke diagnosis?: No VTE Prior VTE?: No VTE Risk Level:: Medical - moderate - high VTE Device Contraindication: N/A - Device Ordered VTE Drug Contraindication: Treatment Not Indicated
--- NOTE | 2024-06-24 12:25 | PM.EVENT ---
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 Her last EGD in 2022 looked OK and her colonoscopy in 05/2023 looked OK as well. She stopped her oral Iron about 3 weeks ago due to constipation. She is presently receiving her 3rd unit of blood. There has been no active bleeding. Her stools have been brown since having stopped her Iron. Diff dx: Chronic blood loss from portal gastropathy or SB AVM's. R/O esophagitis or PUD, although doubtful since she is on her PPI BID. Rec: EGD tomorrow with Cardiology clearance. Full consent has been obtained from her for this including risks of bleeding and perforation. Continue IV PPI. Begin IV iron infusions. Will need an outpatient SB capsulee study if EGD is negative. Clear liquids for now, then NPO after MN. F/U labs for the morning. D/W patient and she is comfortable with this plan. Thanks. Time Spent With Patient Time: Total time managing care of this patient today ____ minutes.
--- NOTE | 2024-06-24 13:47 | CONS_ITS ---
DATE OF SERVICE: 06/24/2024 REASON FOR CONSULTATION: Iron-deficiency anemia and reported heme-positive stool. HISTORY OF PRESENT ILLNESS: This has been obtained from the patient and the medical record. The patient is a 78-year-old female well known to me with an underlying history of chronic reflux with associated Ennis's esophagus and hiatal hernia, and cirrhosis in relation to fatty liver. I last saw her in May 2023 when she underwent a followup colonoscopy that was negative for any recurrent polyps or angiodysplasia. She had an upper endoscopy in May 2022 that did not reveal any significant abnormalities other than her small area of Ennis esophagus and a fairly large hiatal hernia. There was no evidence of any bleeding lesions. There was some hyperplastic gastric polyps, but no sign of any varices, nor gastropathy in relation to the underlying liver disease. The patient has been on chronic iron in relation to an anemia. She is also on a PPI twice a day in regard to the chronic reflux. She denies any recent increasing symptoms of heartburn, dysphagia, anorexia, nausea, nor vomiting. She reports her bowel movements have been somewhat constipated and she stopped her iron about 3 weeks ago for that reason. While on the iron, her stools had always been dark, but since having stop the iron, her stools returned to a normal brown color. She has not noticed any hematochezia nor any intervening melena. She has not noticed any jaundice, increasing abdominal girth, edema, nor pruritus. She has had progressive fatigue and shortness of breath. She was found to be markedly anemic and admitted. Since admission, she has now received transfusions and is currently on her 3rd unit of blood. She has had no signs of bleeding here in the hospital. She denies use of any recent aspirin, NSAIDs, alcohol, nor tobacco. MEDICATIONS: Her medications at home included iron, valsartan with hydrochlorothiazide, levothyroxine, atorvastatin, Ursodiol, and omeprazole 40 mg b.i.d. Medications here in the hospital include IV Protonix twice a day, acetaminophen p.r.n., atorvastatin, IV ceftriaxone, levothyroxine, melatonin, MiraLAX p.r.n., and Ursodiol. PAST MEDICAL HISTORY: Fatty liver with associated cirrhosis. Hypothyroidism. Chronic gastroesophageal reflux with associated Ennis's esophagus that required endoscopic ablation over 10 years ago due to areas of high-grade dysplasia. She has hypothyroidism, hypertension, and hyperlipidemia. Tubular adenomas removed from the colon. 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 She has had a chronic iron deficiency anemia with an upper endoscopy in 2020 negative for celiac disease on duodenal biopsies. She has not had a small bowel capsule study as yet. Her hemoglobin was 11.9 in the summer of 2022. PAST SURGICAL HISTORY: Surgeries include Yan fundoplication in 1995. Knee surgery. Hysterectomy with removal of both ovaries. Shoulder surgery. Cerebral aneurysm with clipping. She denies a history of ND, diabetes, stroke, nor lung disease. She does have severe aortic stenosis seen on echocardiogram yesterday. She is followed by Dr. Mann of Cardiology at [facility]. FAMILY HISTORY: Noncontributory. REVIEW OF SYSTEMS: CONSTITUTIONAL: She has been feeling weak and short of breath in relation to her anemia. CARDIAC: No chest pain. PULMONARY: No coughing or hemoptysis. GI: As above. URINARY: No dysuria. No hematuria. NEUROLOGIC: No headache or seizures. PHYSICAL EXAMINATION: GENERAL: The patient is a pleasant, alert, pale female, in no distress. SKIN: Warm and dry. Anicteric sclerae. CHEST: Clear. CARDIAC: Normal S1, S2 with a systolic murmur. ABDOMEN: Soft, nondistended, nontender without obvious ascites, nor mass. EXTREMITIES: Without edema. LABORATORY DATA: As above. Hemoglobin on admission was 4.9 with MCV of 76. Hemoglobin had been 9.6 in early May. Platelet count 89,000. PT 12.7, INR 1.1. Normal electrolytes. BUN 21, creatinine 0.9, iron 14, 4% saturation, ferritin 10, and normal LFTs. She also has a low B12 level of 151 and a normal folate. She did have a CT scan of the abdomen and pelvis on admission that was negative for any acute changes or evidence of any GI bleeding. Her hiatal hernia was visualized and described as moderate. IMPRESSION: Given the patient's presentation and history, I would want to exclude any source of bleeding from an upper GI source given that she had a negative colonoscopy just 1 year ago and her last upper endoscopy was about 2 years ago. She does have some underlying liver disease and may have some component of portal gastropathy with chronic oozing of blood with anemia on that basis. Full consent has been obtained from her for the endoscopy, including risks of bleeding and perforation. She may eventually require a small-bowel capsule study if the upper endoscopy is nonrevealing. I doubt this is anything such as esophagitis, significant gastritis, or ulcer disease given that she is on omeprazole twice a day and does not use any aspirin or NSAIDs. At this point, she will undergo upper endoscopy tomorrow. She will require cardiology clearance in regard to the aortic stenosis. Full consent has been obtained from her for the endoscopy, including risks of bleeding and perforation. I will continue her IV PPI. I would recommend IV iron infusions while she is here in the hospital as she has a hard time tolerating the oral iron in relation to constipation. If need be, a small bowel capsule study will be set up for her as an outpatient as well. I will continue clear liquids and she will be n.p.o. after midnight. I would also replete her B12 given its low level yesterday. This has all been discussed in detail with the patient. She is comfortable with the plan. Thank you for the consultation. MD LUCIE Ponce/REED / [id number] A[place]
[2024-06-24] MEDS: Cyanocobalamin (Vitamin B-12) 1,000 MCG/ML VIAL 1000 MCG IM (14:32)
[2024-06-24] MEDS: Iron Sucrose Complex 200 MG/10 ML VIAL IVPUSH (18:26)
[2024-06-24] MEDS: Acetaminophen 325 MG TABLET 975 MG PO (18:37)
--- NOTE | 2024-06-24 19:50 | MHC.SHP ---
Pre-Procedural Eval Section A - 24 Hr Update-Section A only Date of Service: 06/25/24 The patient is an INPATIENT: Yes The patient has been examined within 24 hours of the surgical procedure. The History & Physical has been completed within 30 days and I have reviewed it.: Yes Section B - Complete if H&P > 30 days Chief Complaint: ABLA, severe aortic valve stenosis. Allergies: Allergies Allergy/AdvReac Type Severity Reaction Status Date / Time No Known Allergies Allergy Verified 06/23/24 15:27 [No Known Allergies*] Plan I have reviewed the history and physical and performed a pertinent physical examination on my patient. No changes have occurred unless specified. Time Spent With Patient Time: Total time managing care of this patient today ____ minutes.
[2024-06-24] MEDS: cefTRIAXone sodium 1 GM VIAL IVPUSH (21:34)
[2024-06-24] MEDS: Atorvastatin Calcium 20 MG TABLET PO (21:34)
[2024-06-24] MEDS: UrsodioL 300 MG CAPSULE 600 MG PO (21:34)
[2024-06-24] MEDS: Melatonin 3 MG TABLET 6 MG PO (23:11)
[2024-06-25] VITALS (10 sets, daily range): BP systolic 91–125; BP diastolic 51–71; PULSE 77–102; RESP 16–20; TEMP 36.4–37; O2SAT 93–96
[2024-06-25] MEDS: Acetaminophen 325 MG TABLET 975 MG PO ×2 (05:53→21:59)
[2024-06-25] MEDS: Levothyroxine Sodium 100 MCG TABLET PO (05:53)
[2024-06-25] MEDS: Pantoprazole Sodium 40 MG/10 ML VIAL IVPUSH (05:54)
[2024-06-25 07:16] LABS: MANUAL DIFF FLAG NO
[2024-06-25 07:25] LABS: Basophils Percent Auto 0.5 % (0-2); Eosinophils Absolute Auto 0.1 X10*3/uL (0.0-0.4); Hematocrit 25.6 % (37.0-47.0); Hemoglobin 8.1 g/dl (12.0-16.0); Imm Gran Abs Auto 0.02 X10*3/uL (0.00-0.03); Imm Gran Pct Auto 0.5 % (0.0-0.4); Lymphocytes Absolute Auto 0.6 X10*3/uL (1.2-4.9); Lymphocytes Percent Auto 15.2 % (20-40); Mean Corpuscular HGB Conc 31.6 g/dl (31.0-35.0); Mean Corpuscular Hemoglobin 25.2 pg (27.0-33.0); Mean Corpuscular Volume 79.8 fL (80.0-98.0); Mean Platelet Volume 11.5 fL (9.4-12.3); Monocytes Absolute Auto 0.3 X10*3/uL (0.1-1.2); Monocytes Percent Auto 8.4 % (2-11); NRBC Pct Auto 0.5 /100WBC (0.0-0.2); Neutrophils Absolute Auto 2.9 x10*3/uL (2.0-8.3); Neutrophils Percent Auto 72.4 % (45-73); Platelet Count 81 X10*3/uL (160-400); Red Blood Count 3.21 X10*6/uL (4.20-5.50); Red Cell Distribution Width 17.1 % (11.0-16.0)
[2024-06-25 07:35] LABS: Alanine Aminotransferase 6 U/L (0-31); Albumin Level 3.3 g/dL (3.5-5.0); Alkaline Phosphatase 47 U/L (39-117); Anion Gap 9 (12-20); Aspartate Amino Transferase 26 U/L (5-31); Bilirubin Total 0.9 mg/dL (0.0-1.0); Blood Urea Nitrogen 15 mg/dL (9-16); Calcium 8.5 mg/dL (8.4-10.2); Carbon Dioxide 24 mmol/L (22-29); Chloride 107 mmol/L (96-108); Creatinine Clr Calc Pharmacy 74.8; Estimated Glomerular Filt Rate > 60; Glucose Random 111 mg/dL (60-115); Potassium 3.3 mmol/L (3.3-5.1); Sodium 137 mmol/L (135-145); Total Protein 5.5 g/dL (6.5-8.0)
[2024-06-25] MEDS: Cholecalciferol (Vitamin D3) 25 MCG TABLET 50 MCG PO (08:52)
[2024-06-25] MEDS: UrsodioL 300 MG CAPSULE 900 MG PO (08:52)
[2024-06-25] MEDS: Cyanocobalamin (Vitamin B-12) 1,000 MCG/ML VIAL 1000 MCG IM (08:54)
[2024-06-25] MEDS: 0.9 % Sodium Chloride Flush 3 ML SYRINGE IVFLUSH ×3 (09:02→21:48)
--- NOTE | 2024-06-25 10:58 | P.PNCA_ITS ---
Subjective Subjective Date of Service: 06/25/24 Interval history: Seen examined at bedside. She is feeling better but has dyspnea with activity. Physical Exam Vital Signs: Last Vital Signs Temp 97.5 F 06/25/24 07:10 Pulse 77 06/25/24 09:37 Resp 18 06/25/24 07:10 BP 95/55 L 06/25/24 09:37 Pulse Ox 93 06/25/24 09:37 O2 Del Method Room Air 06/25/24 07:10 BMI result Body Mass Index 30.2 GENERAL APPEARANCE: in no acute distress, pleasant. NECK: no carotid bruit, + jugular venous distention. SKIN: no suspicious lesions, warm and dry. HEART: Ejection systolic murmur aortic area with absent 2nd heart sound, regular rate and rhythm. LUNGS: Crackles both bases. ABDOMEN: soft, nontender. EXTREMITIES: no edema. PERIPHERAL PULSES: equal. NEUROLOGIC: No gross deficits, AAO X 3 Objective Labs and Meds 06/25/24 07:04 06/25/24 07:04 Lab results: Laboratory Results - last 24 hr 06/23/24 06/23/24 06/25/24 15:44 17:10 07:04 WBC 4.0 L RBC 3.21 L Hgb 8.1 L Hct 25.6 L MCV 79.8 L MCH 25.2 L MCHC 31.6 RDW 17.1 H Plt Count 81 L MPV 11.5 Immature Gran % (Auto) 0.5 H Neut % (Auto) 72.4 Lymph % (Auto) 15.2 L Bacon % (Auto) 8.4 Eos % (Auto) 3.0 Baso % (Auto) 0.5 Lymph # (Auto) 0.6 L Bacon # (Auto) 0.3 Eos # (Auto) 0.1 Baso # (Auto) 0.0 Abs Immat Gran (auto) 0.02 Absolute Neuts (auto) 2.9 Absolute Nucleated RBC 0.020 H Nucleated RBC % (auto) 0.5 H Smear Path Review Sodium 137 Potassium 3.3 Chloride 107 Carbon Dioxide 24 Anion Gap 9 L BUN 15 Creatinine 0.68 Estim Creat Clear Calc 74.8 Estimated GFR > 60 Random Glucose 111 Calcium 8.5 Total Bilirubin 0.9 AST 26 ALT 6 Alkaline Phosphatase 47 Total Protein 5.5 L Albumin 3.3 L Blood Type O Negative Antibody Screen NEGATIVE Crossmatch See Detail Progress Note: A&P Assessment and plan (1) Severe anemia: Status: Acute (2) Aortic stenosis: Status: Acute Plan [age] year female with severe aortic valve stenosis and acute anemia. She is presenting with shortness of breath. She said she was short of breath for many months but over the last 3 weeks significant changes happened. No chest discomfort or syncope. She was getting black stools because she has been chronically on iron. She was found to be anemic and transfused. Her antihypertensive medications have been held. She is due to get endoscopy today. Mild volume overload clinically and would favor giving her 20 mg IV Lasix today. She is for endoscopy today and can proceed with intermediate risk for perioperative complications. Hopefully something treatable can be found. We will discuss with her further about aortic valve replacement as she has severe and was symptomatic even before anemia started. Thank you for allowing me to participate in the care of your patient. Please feel free to contact me if you have any questions. Time Spent With Patient Time: Total time managing care of this patient today ____ minutes. Progress Note: Quality Stroke Does the patient have a stroke diagnosis?: No Procedures Date of Service Date of Service: 06/25/24
[2024-06-25 11:30] LABS: B Type Natriuretic Peptide 534 pg/mL (<100)
--- NOTE | 2024-06-25 12:44 | P.CONAN_ITS ---
[facility] Active Problems Active Problems: All Active Problems Thrombocytopenia (Acute) Aortic stenosis (Acute) Urinary tract infection (Acute) Heme positive stool (Acute) Exertional dyspnea (Acute) Severe anemia (Acute) Dyspnea (Acute) Mitral annular calcification (Acute) Non-rheumatic aortic stenosis (Acute) Past Medical History Medical History Aortic stenosis Obesity Hypothyroid Fatty liver History of Ennis's esophagus GERD (gastroesophageal reflux disease) Elevated cholesterol HTN (hypertension) Functional capacity: independent ambulation Family History Family History Father Heart problem Family history of problems with anesthesia: Unobtainable Surgical History Surgical History Hx of brain surgery History of esophagogastroduodenoscopy (EGD) Hx of colonoscopy History of Yan fundoplication History of Problems with Anesthesia: No Social History Social History Household Members: None Housing: House Do you presently have visiting nurse or other home services: No Alcohol intake: current Alcohol intake frequency: holidays/special occasions only Patient Tobacco Use Status: Former Tobacco user Tobacco use type: Cigarette Smoked in Last 30 Days: No Second Hand Smoke Exposure: No Use of substances other than those prescribed or required for medical reasons: No Currently Displaying Signs/Symptoms of Drug Intoxication Withdrawal: No Have you been hit, kicked, punched, or otherwise hurt by someone within the past year? If so, by whom?: No Do you feel safe in your current relationship?: No Current Relationship Is there a partner from a previous relationship who is making you feel unsafe now?: No Are you made to feel afraid or neglected: No Are you DNR?: No Advance Directives: No Advance Directives Information Provided: Yes Do you have a plan to hurt others: No Plan Recently lost weight without trying: No How much weight loss: Unsure Eating poorly because of decreased appetite: No Nutrition screen score: 2 Nutrition Risks: No Nutritional Risk Patient : No : No Poor oral hygiene: No service: No Meds Allergies Allergy/AdvReac Type Severity Reaction Status Date / Time No Known Allergies Allergy Verified 06/23/24 15:27 [No Known Allergies*] Active Medications: Current Medications Acetaminophen (Acetaminophen 325 Mg Tablet) 975 mg PO Q6H PRN PRN Reason: Pain, Mild 1-3,fever,headache Last Admin: 06/25/24 05:53 Dose: 975 mg Atorvastatin Calcium (Atorvastatin Calcium 20 Mg Tablet) 20 mg PO BEDTIME [facility] Last Admin: 06/24/24 21:34 Dose: 20 mg Calcium Carbonate (Calcium Carbonate 750 Mg Tab.Chew) 750 mg PO Q4H PRN PRN Reason: Heartburn Ceftriaxone Sodium (Ceftriaxone Sodium 1 Gm Vial) 1 gm IVPUSH BEDTIME [facility] Last Admin: 06/24/24 21:34 Dose: 1 gm Cyanocobalamin (Cyanocobalamin (Vitamin B-12) 1,000 Mcg/Ml Vial) 1,000 mcg IM DAILY [facility] Last Admin: 06/25/24 08:54 Dose: 1,000 mcg Levothyroxine Sodium (Levothyroxine Sodium 100 Mcg Tablet) 100 mcg PO DAILY@0600 [facility] Last Admin: 06/25/24 05:53 Dose: 100 mcg Magnesium Hydroxide (Milk Of Magnesia 30 Ml Oral.Susp) 30 ml PO DAILY PRN PRN Reason: Constipation Melatonin (Melatonin 3 Mg Tablet) 6 mg PO BEDTIME PRN PRN Reason: Insomnia Last Admin: 06/24/24 23:11 Dose: 6 mg Ondansetron HCl (Ondansetron Hcl 4 Mg/2 Ml Vial) 4 mg IVPUSH Q8H PRN PRN Reason: Nausea and Vomiting Pantoprazole Sodium (Pantoprazole Sodium 40 Mg/10 Ml Vial) 40 mg IVPUSH BID@0630,1630 [facility] Last Admin: 06/25/24 05:54 Dose: 40 mg Polyethylene Glycol (Polyethylene Glycol 3350 17 Gm Powd.Pack) 17 gm PO DAILY P RN PRN Reason: Constipation Sodium Chloride (0.9 % Sodium Chloride Flush 3 Ml Syringe) 3 ml IVFLUSH QSHIFT [facility] Last Admin: 06/25/24 09:02 Dose: 3 ml Ursodiol (Ursodiol 300 Mg Capsule) 900 mg PO DAILY [facility] Last Admin: 06/25/24 08:52 Dose: 900 mg Ursodiol (Ursodiol 300 Mg Capsule) 600 mg PO BEDTIME [facility] Last Admin: 06/24/24 21:34 Dose: 600 mg Vitamin D (Cholecalciferol (Vitamin D3) 25 Mcg Tablet) 50 mcg PO DAILY [facility] Last Admin: 06/25/24 08:52 Dose: 50 mcg Home Medications ?Medication ?Instructions ?Recorded ?Confirmed ?Last Taken ?Type cholecalciferol (vitamin D3) 50 50 mcg PO DAILY 04/27/20 06/24/24 06/23/24 History mcg (2,000 unit) capsule (Vitamin D3) ursodiol 500 mg tablet 1,000 mg PO DAILY 04/27/20 06/24/24 06/23/24 History valsartan 160 1 tab PO DAILY 04/27/20 06/24/24 06/23/24 History mg-hydrochlorothiazide 12.5 mg tablet atorvastatin 20 mg tablet 20 mg PO BEDTIME 08/08/23 06/24/24 06/22/24 History levothyroxine 100 mcg tablet 100 mcg PO DAILY@0600 08/08/23 06/24/24 06/23/24 History omeprazole 40 mg capsule,delayed 40 mg PO BID@0630,1630 06/24/24 06/24/24 06/23/24 History release ursodiol 500 mg tablet 500 mg PO BEDTIME 06/24/24 06/24/24 06/22/24 History Exam Height,Weight and Vital Signs: Height 5 ft 6 in Weight 84.9 kg Last Vital Signs Temp 98.4 F 06/25/24 11:00 Pulse 79 06/25/24 11:00 Resp 18 06/25/24 11:00 BP 94/51 L 06/25/24 11:00 Pulse Ox 94 06/25/24 11:00 O2 Del Method Room Air 06/25/24 11:00 Pertinent Lab Results Pertinent Lab Results: Laboratory Tests 06/23/24 06/23/24 06/23/24 15:44 16:01 17:10 WBC 5.9 RBC 2.52 L D Hgb 5.7 L* D Hct 19.1 L* D MCV 75.8 L MCH 22.6 L MCHC 29.8 L RDW 15.1 Plt Count 123 L MPV 11.7 Immature Gran % (Auto) 0.5 H Neut % (Auto) 68.5 Lymph % (Auto) 20.8 [place] % (Auto) 8.0 Eos % (Auto) 1.7 Baso % (Auto) 0.5 Lymph # (Auto) 1.2 [place] # (Auto) 0.5 Eos # (Auto) 0.1 Baso # (Auto) 0.0 Abs Immat Gran (auto) 0.03 Absolute Neuts (auto) 4.0 Absolute Nucleated RBC 0.000 Nucleated RBC % (auto) 0.0 Smear Tech's Comments VERIFIED Smear Path Review Absolute Retic Cancelled Percent Retic Cancelled Immature Retic Fraction Cancelled Retic Hgb Equivalent Cancelled PT 12.7 H INR 1.1 Sodium 139 Potassium 3.4 Chloride 105 Carbon Dioxide 23 Anion Gap 14 BUN 21 H Creatinine 0.92 Estim Creat Clear Calc 55.0 Estimated GFR 59 Random Glucose 129 H Calcium 9.2 Magnesium 1.7 Iron 14 L TIBC 340 % Saturation 4 L Unsat Iron Binding 326 Ferritin 10 Total Bilirubin 0.5 AST 22 ALT 8 Alkaline Phosphatase 53 Troponin I High Sens 212.8 H* B-Natriuretic Peptide 441 H Total Protein 6.5 Albumin 3.8 Vitamin B12 Folate Urine Color Yellow Urine Appearance Cloudy Urine pH 6.0 Ur Specific Reading 1.020 Urine Protein 100 (2+) H Urine Glucose (UA) Negative Urine Ketones Negative Urine Blood Moderate (2+) H Urine Nitrite Positive H Ur Leukocyte Esterase Moderate (2+) H Urine RBC 11-20 H Urine WBC >50 H Ur Squamous Epith Cells 0-2 Urine Bacteria 4+ Hyaline Casts 3-5 Blood Type O Negative Antibody Screen NEGATIVE Crossmatch See Detail 06/23/24 06/24/24 06/24/24 18:31 03:02 06:49 WBC 3.5 L 4.6 L RBC 2.20 L 3.01 L D Hgb 4.9 L* 7.1 L D 7.6 L Hct 16.7 L* 22.9 L D 24.1 L MCV 75.9 L 80.1 MCH 22.3 L 25.2 L MCHC 29.3 L 31.5 RDW 15.1 16.7 H Plt Count 89 L D 89 L MPV 11.3 11.9 Immature Gran % (Auto) 0.4 Neut % (Auto) 68.4 Lymph % (Auto) 20.6 [place] % (Auto) 7.8 Eos % (Auto) 2.4 Baso % (Auto) 0.4 Lymph # (Auto) 1.0 L [place] # (Auto) 0.4 Eos # (Auto) 0.1 Baso # (Auto) 0.0 Abs Immat Gran (auto) 0.02 Absolute Neuts (auto) 3.2 Absolute Nucleated RBC 0.000 0.000 Nucleated RBC % (auto) 0.0 0.0 Smear Tech's Comments Smear Path Review Absolute Retic 0.058 Percent Retic 2.6 H Immature Retic Fraction 18.4 H Retic Hgb Equivalent 16.7 L PT INR Sodium 138 Potassium 3.8 Chloride 107 Carbon Dioxide 24 Anion Gap 11 L BUN 18 H Creatinine 0.77 Estim Creat Clear Calc 66.0 Estimated GFR > 60 Random Glucose 108 Calcium 8.8 Magnesium Iron TIBC % Saturation Unsat Iron Binding Ferritin Total Bilirubin 0.8 AST 24 ALT 9 Alkaline Phosphatase 49 Troponin I High Sens 203.1 H* B-Natriuretic Peptide Total Protein 5.8 L Albumin 3.5 Vitamin B12 Folate Urine Color Urine Appearance Urine pH Ur Specific Reading Urine Protein Urine Glucose (UA) Urine Ketones Urine Blood Urine Nitrite Ur Leukocyte Esterase Urine RBC Urine WBC Ur Squamous Epith Cells Urine Bacteria Hyaline Casts Blood Type Antibody Screen Crossmatch 06/24/24 06/25/24 09:43 07:04 WBC 4.0 L RBC 3.21 L Hgb 8.1 L Hct 25.6 L MCV 79.8 L MCH 25.2 L MCHC 31.6 RDW 17.1 H Plt Count 81 L MPV 11.5 Immature Gran % (Auto) 0.5 H Neut % (Auto) 72.4 Lymph % (Auto) 15.2 L [place] % (Auto) 8.4 Eos % (Auto) 3.0 Baso % (Auto) 0.5 Lymph # (Auto) 0.6 L [place] # (Auto) 0.3 Eos # (Auto) 0.1 Baso # (Auto) 0.0 Abs Immat Gran (auto) 0.02 Absolute Neuts (auto) 2.9 Absolute Nucleated RBC 0.020 H Nucleated RBC % (auto) 0.5 H Smear Tech's Comments Smear Path Review Absolute Retic Percent Retic Immature Retic Fraction Retic Hgb Equivalent PT INR Sodium 137 Potassium 3.3 Chloride 107 Carbon Dioxide 24 Anion Gap 9 L BUN 15 Creatinine 0.68 Estim Creat Clear Calc 74.8 Estimated GFR > 60 Random Glucose 111 Calcium 8.5 Magnesium Iron TIBC % Saturation Unsat Iron Binding Ferritin Total Bilirubin 0.9 AST 26 ALT 6 Alkaline Phosphatase 47 Troponin I High Sens B-Natriuretic Peptide 534 H Total Protein 5.5 L Albumin 3.3 L Vitamin B12 151 L Folate 10.4 Urine Color Urine Appearance Urine pH Ur Specific Reading Urine Protein Urine Glucose (UA) Urine Ketones Urine Blood Urine Nitrite Ur Leukocyte Esterase Urine RBC Urine WBC Ur Squamous Epith Cells Urine Bacteria Hyaline Casts Blood Type Antibody Screen Crossmatch Airway Mallampati Class: II TM Dist: >3cm Neck ROM: Full Denture: Upper Loose/Missing/Broken Teeth: Yes and Upper Heart: RRR Lungs: CTA Assessment and Plan Assessment Anesthesia Assessment: Anesthesia Plan Discussed and Chart Reviewed Final Anesthetic Review Family History of Problems with Anesthesia: Unobtainable History of Problems with Anesthesia: No NPO: Yes ASA Class: IV Final Preanesthetic Review: Meds/Allgs Chart Reviewed, Consent Obtained/Reviewed and Anes Risks/Benef Reviewed Patient Risk: High Procedure Risk: Intermediate Anesthetic Plan Anesthetic Plan: MAC: Disposition: Standard PACU
--- NOTE | 2024-06-25 13:26 | PC.NURSE ---
left wrist iv 20g leaking and painful removed. new iv started italia well.
--- NOTE | 2024-06-25 13:32 | MHC.CM.PN ---
Addendum entered by Eloisa Del Toro 06/28/24 10:57: CM RECEIVED A MESSAGE THAT PT HAD MISSED THE CALL FROM THE [facility] AND WAS UNSURE HOW TO REACH THEM SHE IS WAITING FOR THEM TO ADMINISTER HER B12 CM CALLED PT @ [phone] AND PROVIDED THE PHONE NUMBER FOR [facility] PT STATES SHE WILL CALL THEM TODAY TO ARRANGE SOC CM ALSO LEFT A MESSAGE WITH THE [facility] Original Note: [facility] COUNTS INCLUDE 234 BEDS AT THE [facility] HAS ACCEPTED PT FOR NURSING/PHYSICAL THERAPY SERVICES. CM WILL CONTINUE TO FOLLOW FOR ANY CHANGE TO PLAN.
--- NOTE | 2024-06-25 14:18 | P.PNIM_ITS ---
Subjective Subjective Date of Service: 06/25/24 Interval History: No hematemesis, hematochezia, or melena. Tolerated transfusion well. A little short of breath with ambulation. NPO for EGD. Review of Systems Review of Systems: Yes all other systems are reviewed and are negative Physical Exam 2 Vital Signs: Vital Signs: Last Vital Signs Temp 97.5 F 06/25/24 13:13 Pulse 85 06/25/24 13:13 Resp 16 06/25/24 13:13 BP 104/71 06/25/24 13:13 Pulse Ox 95 06/25/24 13:13 O2 Del Method Room Air 06/25/24 13:13 BMI result Body Mass Index 30.2 Gen: in no acute distress HEENT: sclera anicteric, moist mucus membranes Neck: supple Lungs: clear to auscultation bilaterally Heart: regular rate and rhythm, 3/6 systolic murmur at base Abd: soft, non-tender, non-distended Ext: no edema Skin: warm/well-perfused Neuro: alert and oriented x3, no focal findings Psych: appropriate affect Objective Data Active Medications Acetaminophen (Acetaminophen 325 Mg Tablet) 975 mg PO Q6H PRN PRN Reason: Pain, Mild 1-3,fever,headache Last Admin: 06/25/24 05:53 Dose: 975 mg Documented By: JOSE Atorvastatin Calcium (Atorvastatin Calcium 20 Mg Tablet) 20 mg PO BEDTIME [facility] Last Admin: 06/24/24 21:34 Dose: 20 mg Documented By: JOSE Calcium Carbonate (Calcium Carbonate 750 Mg Tab.Chew) 750 mg PO Q4H PRN PRN Reason: Heartburn Ceftriaxone Sodium (Ceftriaxone Sodium 1 Gm Vial) 1 gm IVPUSH BEDTIME [facility] Last Admin: 06/24/24 21:34 Dose: 1 gm Documented By: JOSE Cyanocobalamin (Cyanocobalamin (Vitamin B-12) 1,000 Mcg/Ml Vial) 1,000 mcg IM DAILY [facility] Last Admin: 06/25/24 08:54 Dose: 1,000 mcg Documented By: ARLENE Levothyroxine Sodium (Levothyroxine Sodium 100 Mcg Tablet) 100 mcg PO DAILY@0600 [facility] Last Admin: 06/25/24 05:53 Dose: 100 mcg Documented By: JOSE Magnesium Hydroxide (Milk Of Magnesia 30 Ml Oral.Susp) 30 ml PO DAILY PRN PRN Reason: Constipation Melatonin (Melatonin 3 Mg Tablet) 6 mg PO BEDTIME PRN PRN Reason: Insomnia Last Admin: 06/24/24 23:11 Dose: 6 mg Documented By: JOSE Naloxone HCl (Naloxone Hcl 0.4 Mg/Ml Vial) 0.04 mg IVPUSH Q5M PRN PRN Reason: Excessive sedation or RR < 8 Ondansetron HCl (Ondansetron Hcl 4 Mg/2 Ml Vial) 4 mg IVPUSH Q8H PRN PRN Reason: Nausea and Vomiting Pantoprazole Sodium (Pantoprazole Sodium 40 Mg/10 Ml Vial) 40 mg IVPUSH BID@0630,1630 [facility] Last Admin: 06/25/24 05:54 Dose: 40 mg Documented By: JOSE Polyethylene Glycol (Polyethylene Glycol 3350 17 Gm Powd.Pack) 17 gm PO DAILY PRN PRN Reason: Constipation Sodium Chloride (0.9 % Sodium Chloride Flush 3 Ml Syringe) 3 ml IVFLUSH QSHIFT [facility] Last Admin: 06/25/24 09:02 Dose: 3 ml Documented By: ARLENE Ursodiol (Ursodiol 300 Mg Capsule) 900 mg PO DAILY [facility] Last Admin: 06/25/24 08:52 Dose: 900 mg Documented By: ARLENE Ursodiol (Ursodiol 300 Mg Capsule) 600 mg PO BEDTIME [facility] Last Admin: 06/24/24 21:34 Dose: 600 mg Documented By: JOSE Vitamin D (Cholecalciferol (Vitamin D3) 25 Mcg Tablet) 50 mcg PO DAILY [facility] Last Admin: 06/25/24 08:52 Dose: 50 mcg Documented By: ARLENE Labs 06/25/24 07:04 06/25/24 07:04 Labs: Laboratory Results - last 24 hr 06/23/24 06/23/24 06/25/24 15:44 17:10 07:04 MCV 79.8 L MCH 25.2 L MCHC 31.6 RDW 17.1 H Plt Count 81 L MPV 11.5 Immature Gran % (Auto) 0.5 H Neut % (Auto) 72.4 Lymph % (Auto) 15.2 L [place] % (Auto) 8.4 Eos % (Auto) 3.0 Baso % (Auto) 0.5 Lymph # (Auto) 0.6 L [place] # (Auto) 0.3 Eos # (Auto) 0.1 Baso # (Auto) 0.0 Abs Immat Gran (auto) 0.02 Absolute Neuts (auto) 2.9 Absolute Nucleated RBC 0.020 H Nucleated RBC % (auto) 0.5 H Smear Path Review Anion Gap 9 L Estim Creat Clear Calc 74.8 Estimated GFR > 60 Random Glucose 111 Calcium 8.5 Total Bilirubin 0.9 AST 26 ALT 6 Alkaline Phosphatase 47 B-Natriuretic Peptide 534 H Total Protein 5.5 L Albumin 3.3 L Crossmatch See Detail Microbiology Microbiology Results: Microbiology 06/23/24 16:20 Urine Culture - Final Urine clean catch - Clean Catch Midstream Escherichia coli Assessment and Plan (1) Aortic stenosis: Status: Acute Assessment and Plan: d3 for 78yo F with fatty liver, chronic anemia; sent in by manager portable and found to have severe anemia with Hb 4.9 and severe aortic stenosis on echo. FOBT positive. CT A/P bleeding scan normal. acute blood loss anemia - transfused 3u pRBCs, Hb now 8.1 - GI consulted; plan EGD today and if negative small bowel capsule endoscopy [had normal colonoscopy 1 yr ago] - continue IV PPI - given IV iron pancytopenia B12 deficiency - anti-IF and anti-parietal cell antibody pending; repleting B12 1000 mcg IM daily 06/24-06/30 then weekly x1mo then monthly severe - Cardiology consulted; plan outpt eval for TAVR - will give 1 dose of IV furosemide as appears slighty overloaded - TTE 06/23/24: - Normal left ventricular size and systolic function. There is mildly increased left ventricular wall thickness. The visually estimated ejection fraction is between 60-65%. - Mildly increased right ventricular cavity size. There is normal right ventricular systolic function. - The left atrium is severely dilated. - There is severe aortic valve stenosis. - Mild pulmonary hypertension is present. hypotension - likely due to anemia + ; continue to HOLD valsartan-HCTZ UTI, E. coli, schuler-sensitive - ceftriaxone 2/-, transition to cefuroxime upon discharge home HLD - continue statin hypothyroid - continue levothyroxine HTN - HOLD antihypertensives as above GERD/hx Ennis's - pantoprazole as above VTE ppx - SCDs, no heparin given anemia/GIB dispo - eventual home In my clinical judgment, the patient requires continued inpatient hospitalization for the following reasons: EGD Total time managing care of this patient today: 45 minutes. Quality Stroke Does the patient have a stroke diagnosis?: No VTE Prior VTE?: No VTE Risk Level:: Medical - moderate - high VTE Device Contraindication: N/A - Device Ordered VTE Drug Contraindication: Treatment Not Indicated
--- NOTE | 2024-06-25 15:01 | P.BOP_ITS ---
Brief Operative Note Date of Service: 06/25/24 Pre-op diagnosis: Anemia Post-op diagnosis: other (Duodenal polyp, Hiatal hernia, GERD with esophagitis, Portal gastropathy and ? of Gastric varices) Procedure: EGD with biopsies Surgeon: Gilberto Hernandez MD Anesthesia: MAC Was an Atomic Spectroscopist used for this Procedure?: No Estimated blood loss (mL): 2.0 Pathology: other (A. Duodenal polyp) Condition: stable Disposition: PACU
--- NOTE | 2024-06-25 15:04 | PM.EVENT ---
Event Note Date of Service: 06/25/24 Event Note: GI-EGD with biopsies-Full note dictated Findings: 1. Flat adenomatous-appearing lesion in the descending duodenum-biopsied x 3 2. Large Hiatal hernia 3. Reflux esophagitis 4. Portal gastropathy with ? of Gastric varices No active bleeding Rec: Check path, advance diet, continue B12 and resume Iron, F/U CBC in AM, resume her outpatient PPI BID, and consider outpatient small bowel capsule study depending on her clinical course. Consider removal of duodenal lesion depending on clinical course with her valvular heart disease. I suspect her anemia may have been multifactorial from the upper endoscopy findings. She will follow up in my office. Time Spent With Patient Time: Total time managing care of this patient today ____ minutes.
[2024-06-25] MEDS: Furosemide 20 MG/2 ML VIAL IVPUSH (16:19)
[2024-06-25] MEDS: Omeprazole 40 MG CAPSULE.DR PO (16:20)
[2024-06-25] MEDS: Atorvastatin Calcium 20 MG TABLET PO (21:47)
[2024-06-25] MEDS: Docusate Sodium 100 MG CAPSULE PO (21:47)
[2024-06-25] MEDS: cefTRIAXone sodium 1 GM VIAL IVPUSH (21:48)
[2024-06-25] MEDS: UrsodioL 300 MG CAPSULE 600 MG PO (21:48)
[2024-06-25] MEDS: Melatonin 3 MG TABLET 6 MG PO (23:19)
--- NOTE | 2024-06-26 02:05 | OP_ITS ---
DATE OF SERVICE: 06/25/2024 SURGEON: Gilberto Hernandez MD INDICATIONS: The patient presents for evaluation of anemia with heme-positive stool. Full consent has been obtained from her for this, including risks of bleeding and perforation. PREOPERATIVE DIAGNOSIS: POSTOPERATIVE DIAGNOSIS: PROCEDURE PERFORMED: Esophagogastroduodenoscopy with biopsies. ESTIMATED BLOOD LOSS: COMPLICATIONS: ANESTHESIA: Medication used, monitored anesthesia care. ASSISTANTS: SPECIMENS: PREOPERATIVE DIAGNOSES: Anemia and heme-positive stool. POSTOPERATIVE DIAGNOSES: Anemia, heme-positive stool, duodenal polyp, hiatal hernia with associated reflux esophagitis, portal gastropathy, question of gastric varices. DESCRIPTION OF PROCEDURE: Patient was placed in the left lateral decubitus position. The Olympus video gastroscope was passed in the posterior oropharynx and upper esophagus under direct vision. The scope was passed slowly to the distal esophagus. The gastroesophageal junction appeared at 30 cm. There was no evidence of any esophagitis. There were small, less than 1 cm areas of irregularity consistent with possible Ennis's mucosa, but there were no lesions noted. The scope entered the stomach. There was a moderate to large hiatal hernia. The scope was advanced to the pylorus and the duodenum was cannulated to the descending portion. The duodenum including the bulb was carefully inspected. The duodenal bulb appeared normal. In the descending duodenum along the lateral wall was a somewhat carpet-like lesion, which appeared to be grossly adenomatous. This overlapped at least 1 fold and was approximately 10 mm in width by 2 cm in diameter. Biopsies were obtained. Of note, I did give her Glucagon 1 mg IV at that point to help with visualization of the area. Overall, I felt the area was on the opposite side of the duodenal wall from the major papilla. The remainder of the duodenum including the bulb appeared normal. The scope was withdrawn back in the stomach and the gastric antrum appeared normal with good peristalsis. The scope was retroflexed visualizing the proximal stomach carefully, which appeared consistent with a portal gastropathy with some congestive changes as well as potential gastric varices versus enlarged gastric folds. However, with insufflation of air, the folds did not go away completely and I suspect this represents at least 1 or 2 gastric varices. There was no stigmata of bleeding. The scope was straightened and withdrawn back to the esophagus. Proximal to 30 cm, the esophageal mucosa appeared normal. The scope was withdrawn from the patient. She tolerated the procedure well and was returned to the recovery area in stable condition. IMPRESSION: 1. Duodenal lesion, status post biopsy. 2. Portal gastropathy with question of gastric varices. 3. Large hiatal hernia with associated reflux. PLAN: The results of the biopsies will be checked. She will begin a regular diet and will remain on her B12, and resume her iron. Her omeprazole will be resumed and the IV PPI will be stopped. She will have followup laboratories tomorrow. Depending upon her clinical course, she may need further evaluation of her anemia with a small bowel capsule study. Overall, given today's findings of the large hiatal hernia with associated reflux, portal gastropathy, question of varices, and the duodenal lesion, these would all potentially contribute to her anemia from a multifactorial standpoint. However, she may need the small bowel capsule study for further evaluation depending upon her clinical course in regard to maintaining her hemoglobin. In regard to the duodenal lesion, if indeed it is adenomatous, we would then need to consider removal of that for which I would tend to refer to a tertiary center given its location and size. However, given the underlying valvular heart disease with significant aortic valve disease, then the duodenal lesion may not play much of a role in her clinical course and we may hold off on any further procedures in that regard. She will be followed up in the office to review things further. MD LUCIE Ponce/REED / [phone] MTDD
[2024-06-26 04:00] VITALS: BP 96/53; PULSE 75; RESP 18; TEMP 36.4; O2SAT 95
[2024-06-26] MEDS: Levothyroxine Sodium 100 MCG TABLET PO (06:34)
[2024-06-26] MEDS: Omeprazole 40 MG CAPSULE.DR PO (06:34)
[2024-06-26 07:26] LABS: MANUAL DIFF FLAG NO
[2024-06-26 07:32] LABS: Basophils Percent Auto 0.6 % (0-2); Eosinophils Absolute Auto 0.1 X10*3/uL (0.0-0.4); Eosinophils Percent Auto 3.6 % (0-4); Hematocrit 24.8 % (37.0-47.0); Hemoglobin 7.9 g/dl (12.0-16.0); Imm Gran Abs Auto 0.01 X10*3/uL (0.00-0.03); Imm Gran Pct Auto 0.3 % (0.0-0.4); Lymphocytes Absolute Auto 0.9 X10*3/uL (1.2-4.9); Lymphocytes Percent Auto 27.4 % (20-40); Mean Corpuscular HGB Conc 31.9 g/dl (31.0-35.0); Mean Corpuscular Hemoglobin 25.4 pg (27.0-33.0); Mean Corpuscular Volume 79.7 fL (80.0-98.0); Mean Platelet Volume 11.4 fL (9.4-12.3); Monocytes Absolute Auto 0.4 X10*3/uL (0.1-1.2); Monocytes Percent Auto 11.6 % (2-11); Neutrophils Absolute Auto 1.9 x10*3/uL (2.0-8.3); Neutrophils Percent Auto 56.5 % (45-73); Red Blood Count 3.11 X10*6/uL (4.20-5.50); Red Cell Distribution Width 17.6 % (11.0-16.0); White Blood Count 3.4 X10*3/uL (4.8-10.8)
[2024-06-26 07:33] LABS: Platelet Count 81 X10*3/uL (160-400)
[2024-06-26 07:45] LABS: Alanine Aminotransferase 10 U/L (0-31); Albumin Level 3.1 g/dL (3.5-5.0); Alkaline Phosphatase 44 U/L (39-117); Anion Gap 9 (12-20); Aspartate Amino Transferase 25 U/L (5-31); Bilirubin Total 0.7 mg/dL (0.0-1.0); Blood Urea Nitrogen 13 mg/dL (9-16); Calcium 8.6 mg/dL (8.4-10.2); Carbon Dioxide 26 mmol/L (22-29); Chloride 106 mmol/L (96-108); Creatinine Clr Calc Pharmacy 75.9; Estimated Glomerular Filt Rate > 60; Glucose Random 107 mg/dL (60-115); Magnesium 1.7 mg/dL (1.6-2.6); Potassium 3.3 mmol/L (3.3-5.1); Sodium 138 mmol/L (135-145); Total Protein 5.3 g/dL (6.5-8.0)
[2024-06-26 07:49] LABS: B Type Natriuretic Peptide 704 pg/mL (<100)
[2024-06-26 08:00] VITALS: BP 108/69; PULSE 76; RESP 20; TEMP 36.2; O2SAT 94
[2024-06-26 08:36] VITALS: BP 113/59; PULSE 87
[2024-06-26 09:32] VITALS: BP 121/67; PULSE 91
[2024-06-26 09:33] VITALS: BP 131/76; PULSE 97
[2024-06-26] MEDS: Docusate Sodium 100 MG CAPSULE PO (10:26)
[2024-06-26] MEDS: Cyanocobalamin (Vitamin B-12) 1,000 MCG/ML VIAL 1000 MCG IM (10:27)
[2024-06-26] MEDS: 0.9 % Sodium Chloride Flush 3 ML SYRINGE IVFLUSH (10:27)
[2024-06-26] MEDS: Ferrous Sulfate 324 MG TABLET.DR PO (10:27)
[2024-06-26] MEDS: UrsodioL 300 MG CAPSULE 900 MG PO (10:27)
[2024-06-26] MEDS: Cholecalciferol (Vitamin D3) 25 MCG TABLET 50 MCG PO (10:27)
[2024-06-26 12:00] VITALS: BP 102/52; PULSE 81; RESP 17; TEMP 36.7; O2SAT 94
--- NOTE | 2024-06-26 12:24 | P.PNCA_ITS ---
Subjective Subjective Date of Service: 06/26/24 Principal diagnosis: Severe , CHF, TAVR discussion Interval history: Seen and examined at bedside. s/p endoscopy and biopsy. She is still complaining of shortness of breath but feels better than before. She previously had a duodenal polyp and this was removed. I had a detailed discussion with Dr. Hernandez and on current endoscopy there is again concern for duodenal polyp. He has taken biopsy to see if this is malignant. This can be endoscopically removed. Dr. Hernandez also shared that the patient has known cirrhosis of liver. This explains her thrombocytopenia with platelet counts of 81,000. The patient said that she had BAKER before. Hemoglobin overall is stable at this point. Physical Exam Vital Signs: Last Vital Signs Temp 97.1 F 06/26/24 08:00 Pulse 97 06/26/24 09:33 Resp 20 06/26/24 08:00 BP 131/76 06/26/24 09:33 Pulse Ox 94 06/26/24 08:00 O2 Del Method Room Air 06/26/24 08:00 BMI result Body Mass Index 30.2 GENERAL APPEARANCE: in no acute distress, pleasant. NECK: no carotid bruit, + jugular venous distention. SKIN: no suspicious lesions, warm and dry. HEART: Ejection systolic murmur aortic area with absent 2nd heart sound, regular rate and rhythm. LUNGS: Crackles both bases. ABDOMEN: soft, nontender. EXTREMITIES: no edema. PERIPHERAL PULSES: equal. NEUROLOGIC: No gross deficits, AAO X 3 Objective Labs and Meds 06/26/24 07:12 06/26/24 07:16 Lab results: Laboratory Results - last 24 hr 06/26/24 06/26/24 07:12 07:16 WBC 3.4 L RBC 3.11 L Hgb 7.9 L Hct 24.8 L MCV 79.7 L MCH 25.4 L MCHC 31.9 RDW 17.6 H Plt Count 81 L MPV 11.4 Immature Gran % (Auto) 0.3 Neut % (Auto) 56.5 Lymph % (Auto) 27.4 [place] % (Auto) 11.6 H Eos % (Auto) 3.6 Baso % (Auto) 0.6 Lymph # (Auto) 0.9 L [place] # (Auto) 0.4 Eos # (Auto) 0.1 Baso # (Auto) 0.0 Abs Immat Gran (auto) 0.01 Absolute Neuts (auto) 1.9 L Absolute Nucleated RBC 0.000 Nucleated RBC % (auto) 0.0 Sodium 138 Potassium 3.3 Chloride 106 Carbon Dioxide 26 Anion Gap 9 L BUN 13 Creatinine 0.67 Estim Creat Clear Calc 75.9 Estimated GFR > 60 Random Glucose 107 Calcium 8.6 Magnesium 1.7 Total Bilirubin 0.7 AST 25 ALT 10 Alkaline Phosphatase 44 B-Natriuretic Peptide 704 H Total Protein 5.3 L Albumin 3.1 L ECG Attestation: I personally reviewed and interpreted this ECG as follows: Interpretation: Sinus rhythm 92 beats per minute, normal axis, inferior Q-waves (old infarct) QRS duration 96 milliseconds, QTC 455 milliseconds. Imaging Comment: Transthoracic Echocardiogram Patient (Last, First, Middle): Mary Lou Celestin S Gender: Female Date of : 1945 Age: 78 Procedure Date: 06/23/2024 Procedure Type: Transthoracic Echocardiogram Location: ER Height: 167.64 cm Weight: 83.92 kg BSA: 1.93 m2 Heart Rate: bpm BP: 84 / 35 mmHg Hospital Medical Assistant: Referring MD: Kleber Skaggs MD Symptoms: dyspnea, hypotension ECG Rhythm: Sinus Conclusions: - Normal left ventricular size and systolic function. There is mildly increased left ventricular wall thickness. The visually estimated ejection fraction is between 60-65%. - Mildly increased right ventricular cavity size. There is normal right ventricular systolic function. - The left atrium is severely dilated. - There is severe aortic valve stenosis. - Mild pulmonary hypertension is present. Findings Left Ventricle Normal left ventricular size and systolic function. There is mildly increased left ventricular wall thickness. The visually estimated ejection fraction is between 60-65%. There is no evidence of regional wall motion abnormalities. Diastolic function is indeterminate on the basis of available data. Right Ventricle Mildly increased right ventricular cavity size. There is normal right ventricular systolic function. Atria The left atrium is severely dilated. The right atrium is mildly dilated. Aortic Valve There is severe calcification of the aortic valve. There is severe aortic valve stenosis. The peak aortic velocity is 4.30 m/s with a calculated peak gradient of 74 mmHg. The mean gradient is 44 mmHg. The aortic valve area is 0.81 cm2. There is no aortic valve regurgitation. Mitral Valve There is severe mitral annular calcification. There is mild mitral valve regurgitation. The mean mitral valve gradient is 7.00 mmHg. Pulmonic Valve Normal pulmonic valve structure and function. There is no pulmonic valve regurgitation. Tricuspid Valve Normal tricuspid valve structure. There is trace tricuspid valve regurgitation. The right ventricular systolic pressure is 45 mmHg. Normal right atrial pressure. Mild pulmonary hypertension is present. Great Vessels There is mild dilatation of the ascending aorta measuring 3.50 cm. The visualized portions of the pulmonary artery and branches are normal. Venous The inferior vena cava is normal in size and collapses greater than 50% with inspiration. Pericardium/Pleural There is no evidence of pericardial effusion. Prior Study Comparison Changes noted compared to prior study dated: 01/27/2024. Severe present Measurements 2D Linear Measurements IVSd: 1.06 0.6-0.9/0.6-1.0 cm LVIDd: 4.30 3.9-5.3/4.2-5.9 cm LVIDd Index: 2.23 2.4-3.2/2.2-3.1 cm/m2 LVIDs: 3.07 2.0-3.6 cm LVPWd: 1.06 0.7-1.1 cm Ao Root: 3.30 2.1-3.5 cm LA Diam: 4.40 2.7-3.8/3.0-4.0 cm LAIDs Index: 2.28 1.5-2.3 cm/m2 LV Mass: 192.51 67-162/88-224 g LV Mass Index: 99.74 43-95/49-115 g/m2 LVOT Diam: 2.10 3.0+(-)1.3 cm Mitral Valve MV VTI: 0.51 MV Pk Wilian: 2.01 MV Mn Wilian: 1.26 MV Pk Grad: 16.00 MV Mn Grad: 7.00 MV Pk E: 1.51 MV PK A: 1.50 MV Decel Time: 151.00 E/A: 1.00 E'Lateral: 3.59 E'Medial: 4.68 E/E' Med: 32.30 E/E' Lat: 42.10 PHT: 44.00 MVA PHT: 5.00 MVA Continuity: 1.73 Decel [place]: 10.02 Aortic Valve AoV Pk Wilian: 4.30 AoV Mn Wilian: 3.09 AoV VTI: 1.08 AoV Pk Grad: 74.00 Aov Mn Grad: 44.00 KATIE Cont.VTI: 0.81 LVOT LVOT Pk Wilian: 1.02 LVOT Mn Wilian: 0.69 LVOT VTI: 0.25 LVOT Pk Grad: 4.00 LVOT Mn Grad: 2.00 LVOT Diam: 2.10 LVOT Area: 3.46 Diastolic Function MV Pk E: 1.51 MV Pk A: 1.50 E/A: 1.00 E'Medial: 4.68 E/E' Med: 32.30 E' Laterial: 3.59 E/E' Lat: 42.10 Right Ventricle TAPSE (mm): 32.00 TVS' Wilian: 16.00 Tricuspid Valve TR Pk Wilian: 3.25 TR Pk Grad: 42.00 RA Press: 3.00 RVSP: 45.00 Great Vessels Aorta Ao Root-2D: 3.30 2.0-3.7 cm Ao Asc: 3.50 2.1-3.4 cm Pulmonary Valve PV Pk Wilian: 0.92 Peak PV Grad: 3.00 Updated in Other Vendor System with Status of Final Evan Mann MD electronically signed on 06/23/2024 7:46:03 PM with status of Final Progress Note: A&P Assessment and plan (1) Aortic stenosis: Status: Acute (2) Thrombocytopenia: Status: Acute (3) Severe anemia: Status: Acute Plan Pleasant 78 year female with history of [id number] aortic valve stenosis who presented with severe anemia and dyspnea on exertion. Clinically she was in mild congestive heart failure. She was transfused and given diuretics. She underwent endoscopy which has shown a duodenal polyp which was biopsied. She may need repeat endoscopy and removal of the polyp but she will be following with Dr. Hernandez next week for further discussion as the biopsy result comes back. She has cirrhosis of liver and there is some evidence of portal gastropathy noted on the endoscopy also. She has severe aortic valve stenosis by exam and echocardiography and is symptomatic. Before the anemia started she was short of breath with activities but she said in the last 3 weeks symptoms significantly worsened. I think she has severe symptomatic . I discussed with her about management options including surgical aortic valve replacement versus transcatheter aortic valve replacement. She is more interested in transcatheter aortic valve replacement. I have explained to her pros and cons of both strategies and quoted her potential complications including bleeding, vascular injury, stroke, pacemaker placement and . She understands the pros and cons and wishes to proceed for further workup. I am going to arrange a TAVR protocol CT for her. We will ask Cardiothoracic surgeon to see her in consultation. In the meantime she will get her biopsy result back and will see whether this polyp needs to be removed before she gets valve replacement. We will also arrange a diagnostic angiogram for her in the coming weeks. Thank you for allowing me to participate in the care of your patient. Please feel free to contact me if you have any questions. Time Spent With Patient Time: Total time managing care of this patient today ____ minutes. Progress Note: Quality Stroke Does the patient have a stroke diagnosis?: No Procedures Date of Service Date of Service: 06/26/24
--- NOTE | 2024-06-26 13:09 | P.F2F_ITS ---
Service Date Service Date: 06/26/24 Encounter Date of encounter: 06/26/24 Reasons for Services Signs and symptoms assessed: weakness, lightheadedness B12 deficiecny Reason for prison: administration of IV, SQ, or IM injection, medication management and medication treatment Reason for physical therapy: home safety and mobility, therapeutic exercises, gait/transfer training, assess need for DME, ADL training and energy conservation Overseeing Care: Christian Lewis Homebound: Leaving the home is medically contraindicated at this time without the asist of a device and/or another person due th the listed conditions above and below. Reason homebound: unsteady gait / fall risk and weakness related to hospital stay Certification: Based on the above findings, I certify that this patient is confined to the home and needs intermittent prison care, physical therapy and/or speech therapy, or continues to need occupational therapy. The patient is under my care, and I have initiated the establishment of the plan of care. The patient will be followed by a physician who will periodically review the plan of care. Time Spent With Patient Time: Total time managing care of this patient today ____ minutes.
--- NOTE | 2024-06-26 13:11 | PM.DS ---
DS: Providers Provider Date of Service: 06/26/24 Date of admission: 06/24/24 00:00 Date of discharge: 06/26/24 Primary care physician: Christian Lewis MD Consults: 06/23/24 20:23 Consult to Cardiology Routine Consulting Provider: [facility] Reason for consultation: severe , SOB Has provider been notified: Yes 06/24/24 00:04 Consult to Gastroenterology Routine Consulting Provider: Kendall Vega Reason for consultation: ABLA, hgb 4.9, CT negative 06/24/24 00:13 Consult to Hematology / Oncology Routine Consulting Provider: [facility] Oncology/Hematology Reason for consultation: severe anemia, thrombocytopenia Has provider been notified: No DS: Diagnosis Discharge Diagnosis (1) Aortic stenosis: Status: Acute (2) Thrombocytopenia: Status: Acute (3) Severe anemia: Status: Acute (4) B12 deficiency: Status: Acute (5) Duodenal mass: Status: Acute (6) Portal hypertensive gastropathy: Status: Acute (7) Urinary tract infection: Status: Acute DS: Summary Hospital Course Hospital Course: From the history and physical by the admitting hospitalist, RUSTAM Cortes, 06/24/24: Patient is a 70-year-old female with a past medical history significant for severe aortic stenosis, HLD, hypothyroid, GERD/hx Ennis's esophagus, ?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 She reports that she saw her engineering patternmaker who recommended a stat echo at the ED. at this time she was found to have hemoglobin of 5.7 and on repeat a few hours later 4.9. She denies any visible bleeding sources including melena, gross hematuria or hematochezia. She does report that she has had a workup for this many times in the past and was told to take iron daily for the past few years. She stopped taking this about 3-4 weeks ago due to constipation. Aside from some tachycardia and dyspnea on exertion she has been asymptomatic. 78yo F with fatty liver, chronic anemia; sent in by engineering patternmaker and found to have severe anemia with Hb 4.9 and severe aortic stenosis on echo. FOBT positive. CT A/P bleeding scan normal. acute blood loss anemia - Transfused 3u pRBCs, Hb 7.9 upon discharge; to repeat CBCd in 1 week and again in 1 month. Also given IV iron and started on PO repletion. - Dr Hernandez from Gastroenterology consulted. She had a normal colonoscopy a year ago. EGD on 06/25/24 showed duodenal lesion, which was biopsied; portal gastropathy with question of gastric varices; and large hiatal hernia with reflux, any of which could have been the source of bleeding. She will follow up with Dr Hernandez for the biopsy results and for recommendations for further management. Twice-daily PPI continued. pancytopenia B12 deficiency - B12 level found to be low. Anti-IF and anti-parietal cell antibodies sent and pending at time of discharge. Started repletion with vitamin B12 1000 mcg IM daily 06/24-06/30 then weekly x1mo 07/07-08/04 then monthly. B12 level to be rechecked in 1 month. severe aortic stenosis - TTE 06/23/24: - Normal left ventricular size and systolic function. There is mildly increased left ventricular wall thickness. The visually estimated ejection fraction is between 60-65%. - Mildly increased right ventricular cavity size. There is normal right ventricular systolic function. - The left atrium is severely dilated. - There is severe aortic valve stenosis. - Mild pulmonary hypertension is present. - Cardiology consulted; plan outpatient evaluation for TAVR. - She was given 1 dose of IV furosemide and discharged on 20 mg of furosemide daily. Valsartan-HCTZ was discontinued due to hypotension. UTI, E. coli, schuler-sensitive - Treated with ceftriaxone 06/23-06/25, discharged on cefuroxime 06/26-06/30. She was discharged home with VNA services for B12 administration and PT. Time Attestation Discharge Coordination Time (in mins): 45 Quality: Safe Use of Opioids Does Pt have an Active Cancer Diagnosis on the Problem List?: No Quality: Stroke Does the patient have a stroke diagnosis?: No Physical Exam Vital Signs: Vital Signs: Last Vital Signs Temp 98.1 F 06/26/24 12:00 Pulse 81 06/26/24 12:00 Resp 17 06/26/24 12:00 BP 102/52 L 06/26/24 12:00 Pulse Ox 94 06/26/24 12:00 O2 Del Method Room Air 06/26/24 12:00 BMI result Body Mass Index 30.2 Gen: in no acute distress HEENT: sclera anicteric, moist mucus membranes Neck: supple Lungs: clear to auscultation bilaterally Heart: regular rate and rhythm, 3/6 systolic murmur at base Abd: soft, non-tender, non-distended Ext: no edema Skin: warm/well-perfused Neuro: alert and oriented x3, no focal findings Psych: appropriate affect DS: Data Data Completed and Pending Completed studies during hospitalization [Text1]: Laboratory Results WBC 3.4 X10*3/uL (4.8-10.8) L 06/26/24 07:12 RBC 3.11 X10*6/uL (4.20-5.50) L 06/26/24 07:12 Hgb 7.9 g/dl (12.0-16.0) L 06/26/24 07:12 Hct 24.8 % (37.0-47.0) L 06/26/24 07:12 MCV 79.7 fL (80.0-98.0) L 06/26/24 07:12 MCH 25.4 pg (27.0-33.0) L 06/26/24 07:12 MCHC 31.9 g/dl (31.0-35.0) 06/26/24 07:12 RDW 17.6 % (11.0-16.0) H 06/26/24 07:12 Plt Count 81 X10*3/uL (160-400) L 06/26/24 07:12 MPV 11.4 fL (9.4-12.3) 06/26/24 07:12 Immature Gran % (Auto) 0.3 % (0.0-0.4) 06/26/24 07:12 Neut % (Auto) 56.5 % (45-73) 06/26/24 07:12 Lymph % (Auto) 27.4 % (20-40) 06/26/24 07:12 [place] % (Auto) 11.6 % (2-11) H 06/26/24 07:12 Eos % (Auto) 3.6 % (0-4) 06/26/24 07:12 Baso % (Auto) 0.6 % (0-2) 06/26/24 07:12 Lymph # (Auto) 0.9 X10*3/uL (1.2-4.9) L 06/26/24 07:12 [place] # (Auto) 0.4 X10*3/uL (0.1-1.2) 06/26/24 07:12 Eos # (Auto) 0.1 X10*3/uL (0.0-0.4) 06/26/24 07:12 Baso # (Auto) 0.0 X10*3/uL (0.0-0.2) 06/26/24 07:12 Abs Immat Gran (auto) 0.01 X10*3/uL (0.00-0.03) 06/26/24 07:12 Absolute Neuts (auto) 1.9 x10*3/uL (2.0-8.3) L 06/26/24 07:12 Absolute Nucleated RBC 0.000 X10*3/uL (0.0-0.012) 06/26/24 07:12 Nucleated RBC % (auto) 0.0 /100WBC (0.0-0.2) 06/26/24 07:12 Smear Tech's Comments VERIFIED 06/23/24 15:44 Smear Path Review 06/23/24 15:44 Absolute Retic 0.058 X10*6/uL (0.026-0.095) 06/23/24 18:31 Percent Retic 2.6 % (0.5-1.8) H 06/23/24 18:31 Immature Retic Fraction 18.4 % (3.0-15.9) H 06/23/24 18:31 Retic Hgb Equivalent 16.7 pg (30.0-35.0) L 06/23/24 18:31 PT 12.7 SEC (10.9-12.4) H 06/23/24 15:44 INR 1.1 (0.9-1.1) 06/23/24 15:44 Sodium 138 mmol/L (135-145) 06/26/24 07:16 Potassium 3.3 mmol/L (3.3-5.1) 06/26/24 07:16 Chloride 106 mmol/L (96-108) 06/26/24 07:16 Carbon Dioxide 26 mmol/L (22-29) 06/26/24 07:16 Anion Gap 9 (12-20) L 06/26/24 07:16 BUN 13 mg/dL (9-16) 06/26/24 07:16 Creatinine 0.67 mg/dL (0.5-1.4) 06/26/24 07:16 Estim Creat Clear Calc 75.9 06/26/24 07:16 Estimated GFR > 60 06/26/24 07:16 Random Glucose 107 mg/dL (60-115) 06/26/24 07:16 Calcium 8.6 mg/dL (8.4-10.2) 06/26/24 07:16 Magnesium 1.7 mg/dL (1.6-2.6) 06/26/24 07:16 Iron 14 mcg/dL (30-160) L 06/23/24 15:44 TIBC 340 mcg/dL (228-428) 06/23/24 15:44 % Saturation 4 % (15-50) L 06/23/24 15:44 Unsat Iron Binding 326 ug/dL 06/23/24 15:44 Ferritin 10 ng/mL (10-250) 06/23/24 15:44 Total Bilirubin 0.7 mg/dL (0.0-1.0) 06/26/24 07:16 AST 25 U/L (5-31) 06/26/24 07:16 ALT 10 U/L (0-31) 06/26/24 07:16 Alkaline Phosphatase 44 U/L (39-117) 06/26/24 07:16 Troponin I High Sens 203.1 ng/L (<3.5-17.0) H* 06/23/24 18:31 B-Natriuretic Peptide 704 pg/mL (<100) H 06/26/24 07:16 Total Protein 5.3 g/dL (6.5-8.0) L 06/26/24 07:16 Albumin 3.1 g/dL (3.5-5.0) L 06/26/24 07:16 Vitamin B12 151 pg/mL (200-900) L 06/24/24 09:43 Folate 10.4 ng/mL (> or = 4.0) 06/24/24 09:43 Urine Color Yellow 06/23/24 16:01 Urine Appearance Cloudy 06/23/24 16:01 Urine pH 6.0 (5.0-9.0) 06/23/24 16:01 Ur Specific [place] 1.020 (1.005-1.025) 06/23/24 16:01 Urine Protein 100 (2+) mg/dL (Neg-Trace) H 06/23/24 16:01 Urine Glucose (UA) Negative mg/dL (Negative) 06/23/24 16:01 Urine Ketones Negative mg/dL (Negative) 06/23/24 16:01 Urine Blood Moderate (2+) (Negative) H 06/23/24 16:01 Urine Nitrite Positive (Negative) H 06/23/24 16:01 Ur Leukocyte Esterase Moderate (2+) (Negative) H 06/23/24 16:01 Urine RBC 11-20 /HPF (0-2) H 06/23/24 16:01 Urine WBC >50 /HPF (0-5) H 06/23/24 16:01 Ur Squamous Epith Cells 0-2 /HPF (0-2) 06/23/24 16:01 Urine Bacteria 4+ (None Seen) 06/23/24 16:01 Hyaline Casts 3-5 /LPF (0-2) 06/23/24 16:01 Blood Type O Negative 06/23/24 17:10 Antibody Screen NEGATIVE 06/23/24 17:10 Crossmatch See Detail 06/23/24 17:10 Pending studies at discharge: Pending at discharge 06/25/24 14:23 Surgical [PTH] Routine Discharge Plan Discharge Anticipated Discharge Date/Time: 06/26/24 12:56 Patient Disposition: Home Health Service Discharge Diagnosis: anemia pancytopenia duodenal mass B12 deficiency aortic stenosis UTI Referrals: Christian Lewis MD [Primary Care Provider] - 1 Week Evan Mann MD [Physician] - 2 Weeks Gilberto Hernandez MD [Physician] - 1 Week Discharge Medications: New ferrous sulfate 324 mg (65 mg iron) Tablet,Delayed Release (Dr/Ec) 324 mg PO DAILY Qty: 30 0RF cyanocobalamin (vitamin B-12) 1,000 mcg/mL Solution See Rx Instructions .ROUTE .COMPLEX Qty: 10 2RF Rx Instructions: 1000 mcg IM daily 06/27-06/30, then 1000 mcg IM weekly 07/07-08/04, then 1000 mcg IM monthly furosemide 20 mg tablet 20 mg PO DAILY Qty: 30 0RF (DME) syringe with needle [Syringe 3cc/43Kd2-9/2 ] 3 mL 21 gauge x 1 /2 syringe See Rx Instructions .Route Qty: 100 0RF Rx Instructions: As directed cefuroxime axetil 500 mg tablet 500 mg PO BID Qty: 8 0RF Continued ursodiol 500 mg tablet 1,000 mg PO DAILY cholecalciferol (vitamin D3) [Vitamin D3] 50 mcg (2,000 unit) Capsule 50 mcg PO DAILY atorvastatin 20 mg tablet 20 mg PO BEDTIME levothyroxine 100 mcg tablet 100 mcg PO DAILY@0600 ursodiol 500 mg tablet 500 mg PO BEDTIME omeprazole 40 mg capsule,delayed release(DR/EC) 40 mg PO BID@0630,1630 Discontinued valsartan-hydrochlorothiazide 160-12.5 mg tablet 1 tab PO DAILY Discharge Orders: Discharge Order (Routine); Ordered 06/26/24 Ordered By: Mauro Santacruz Diet: Low salt diet Activity on Discharge: As tolerated Stand Alone Forms: Patient Portal Discharge page Print Language: Jamaican Other Ambulatory Orders: Vitamin B12 (Routine) Timeframe: 1 Month Facility: [facility] - Location: Laboratory Ordered By: Mauro Santacruz Complete Blood Count Auto Diff (Routine) Timeframe: 1 Month Facility: [facility] - Location: Laboratory Ordered By: Mauro Santacruz Complete Blood Count Auto Diff (Routine) Timeframe: 1 Week Facility: [facility] - Location: Laboratory Ordered By: Mauro Santacruz Care Plan Goals: cardiac health Health Concerns: anemia pancytopenia duodenal mass B12 deficiency aortic stenosis UTI Plan of Treatment: take iron as prescribed take vitamin B12 as prescribed repeat CBC in 1 week and 1 month repeat vitamin B12 level in 1 month follow up with Dr Hernandez from Gastroenterology for biopsy results and management of duodenal mass follow up with Dr Mann from Cardiology regarding aortic stenosis take cefuroxime 500 mg twice daily for 4 days Please follow up with your primary care doctor within 1 week. Return to the hospital if you experience recurrent or worsening symptoms. Assessment: See Discharge Summary.
--- NOTE | 2024-06-26 14:16 | HO.POSTANES ---
Post Anesthesia Evaluation Post Anesthesia Evaluation Date of Service: 06/26/24 Vital Signs: Vital Signs Temp Pulse Resp BP Pulse Ox O2 Del Method 06/26/24 12:00 98.1 F 81 17 102/52 L 94 Room Air 06/26/24 09:33 97 131/76 06/26/24 09:32 91 121/67 06/26/24 08:36 87 113/59 L 06/26/24 08:00 97.1 F 76 20 108/69 94 Room Air 06/26/24 04:00 97.5 F 75 18 96/53 L 95 Room Air Anesthesia: Monitored Mental Status: Awake Pain Control: Satisfactory Nausea/Vomiting: None Hydration: Adequate Anesthesia-Related Issues: No Anes. Related Issues
[2024-06-30 21:02] LABS: Intrinsic Factor Antibodies Negative (Negative)
[2024-06-30 22:14] LABS: Parietal Cell Antibody <=20.0 Unit (<=20.0)
== END 2024-06-26 14:45 | disposition home health service (06) | DRG 812 ==
LOC: HO.ED 23:35 → HO.EDOVER 06-24 00:11 → HO.IMC 06-24 02:03
PROVIDERS: Internal Medicine; Internal Medicine Cardiovascular Disease; Physician Assistant Medical; Admitting Provider Physician Assistant; Emergency Provider Emergency Medicine; PCP Internal Medicine; Visit Provider Family Medicine
PROC: 0DJ08ZZ Inspection of Upper Intestinal Tract, Via Natural or Artificial Opening Endoscopic (ICD-10-PCS; CPT 43235; principal; 2024-06-25 14:30)
DX: D62 Acute posthemorrhagic anemia (principal); N39.0 Urinary tract infection, site not specified; K76.6 Portal hypertension; K92.1 Melena; I86.4 Gastric varices; D61.818 Other pancytopenia; K31.89 Other diseases of stomach and duodenum; K44.9 Diaphragmatic hernia without obstruction or gangrene; B96.20 Unspecified Escherichia coli [E. coli] as the cause of diseases classified elsewhere; K31.9 Disease of stomach and duodenum, unspecified; I95.9 Hypotension, unspecified; E53.8 Deficiency of other specified B group vitamins; I35.0 Nonrheumatic aortic (valve) stenosis; I34.81 Nonrheumatic mitral (valve) annulus calcification; K22.70 Barrett's esophagus without dysplasia; E03.9 Hypothyroidism, unspecified; K76.0 Fatty (change of) liver, not elsewhere classified; K74.69 Other cirrhosis of liver; Z79.890 Hormone replacement therapy; Z79.899 Other long term (current) drug therapy
CPT/HCPCS: 36415; 71045; 74178; 80053; 81001; 82607; 82728; 82746; 83516; 83540; 83735; 83880; 84484; 85014; 85018; 85025; 85027; 85045; 85610; 86340; 86850; 86900; 86901; 86923; 87086; 87088; 87186; 88305; 93005; 93306; 97162; 99285; J0696; J1610; J1756; J1940; J2470; J2704; J3420; P9016; Q9967

== ENCOUNTER → 2024-06-23 15:37 | Outpatient (BNV) | payer MEDICARE, SELFPAY | PROVIDERS: Emergency Provider Emergency Medicine; PCP Internal Medicine; Visit Provider Radiology Diagnostic Radiology | DX: R07.9 Chest pain, unspecified (principal); R06.09 Other forms of dyspnea | CPT/HCPCS: 71045 ==

== ENCOUNTER → 2024-06-24 | Outpatient (BNV) | payer MEDICARE, SELFPAY | PROVIDERS: Admitting Provider Physician Assistant; Emergency Provider Emergency Medicine; PCP Internal Medicine; Visit Provider Physician Assistant | DX: D64.9 Anemia, unspecified (principal); R19.5 Other fecal abnormalities; D69.6 Thrombocytopenia, unspecified; N39.0 Urinary tract infection, site not specified; I35.0 Nonrheumatic aortic (valve) stenosis | CPT/HCPCS: 99223; 99232; 99239; 99499; G0180 ==

== ENCOUNTER 2024-07-03 07:27 | Outpatient (REF) | payer MEDICARE, SELFPAY ==
--- OUTSIDE RECORDS SUMMARY | 2024-07-03 07:30 | XMS_ITS | Patient Health Record ---
Author Organization [facility] Address [address] [place] [address] Care Team Providers Care Dude Ranch Manager Name Role Phone Christian Lewis MD Primary Care Provider Maite Mayfield Unavailable [phone] Allergies No Known Allergies Reason For Referral [...] 07/24/2023 Encounters Encounter Location Date Provider Diagnosis [facility] [address] [place] [address] 07/24/2023 Maite Cedeno Ingrown nail L60.[address] [place] [address] 07/16/2023 Maite Cedeno [facility] [address] [place] [address] 07/24/2023 Maite Cedeno Assessments Encounter Date Diagnosis (ICD Code) Assessment Notes Treatment Notes Treatment Clinical Notes Section Notes 07/24/2023 Ingrown nail (ICD-10 - L60.0) Plan Of Treatment No Information Insurance Providers Payer Name Payer Address Payer Phone Subscriber Number Group Number Insured Name Patient Relationship to Insured Coverage Start Date Coverage End Date [employer] [place] [employer] [address] [place] [address] [phone] [id number] Mary Lou Celestin Self - patient is the insured Medical (General) History Medical History History ICD Code High blood pressure Scarlet fever thyroid Chicken pox Surgical History Surgery Date(Month/Year) hysterectomy 1985 knee surgery, left shoulder surgery right stomach surgery 1995 brain aneurysm 2007 colonoscopy 05/29/23
--- OUTSIDE RECORDS SUMMARY | 2024-07-03 07:30 | XMS_ITS ---
Author Organization [facility] Address [address] [place] [address] Care Team Providers Care Stopping Builder Name Role Phone Christian Lewis MD Primary Care Provider Maite Mayfield [phone] REASON FOR VISIT DIRECT SERVICE PROVIDER PPWK Entered Encounters Encounter Location Date Provider Diagnosis [facility] [address] [place] [address] 07/16/2023 Maite Cedeno Plan Of Treatment No Information Progress Notes * Mary Lou CELESTIN SDOB:1945 (78 yo F)Acc No.[id number]:07/16/2023 Patient:?Mary Lou Celestin :1945???Age:78 Y???Sex:Female Address:[address] [facility] [place], [address] * true * Date:? Generated for Suzanne caraballo/Ligia/eTransmitting on:?07/03/2024 07:30 AM EST
--- OUTSIDE RECORDS SUMMARY | 2024-07-03 07:31 | XMS_ITS ---
Author Organization [facility] Address [address] [place] [address] Care Team Providers Care Manager Pricing Name Role Phone Christian Lewis MD Primary Care Provider Gilberto Hollingsworth Unavailable [phone] REASON FOR VISIT Patient presents today for marie's ,elevated lft's Encounters Encounter Location Date Provider Diagnosis [facility] [address] [place] [address] 03/20/2024 Gilberto Hernandez PLAN OF TREATMENT Next Appt Details Provider Name:Gilberto Hernandez , 02/02/2025 09:50:00 AM, [address], [address], [place], [address],
--- OUTSIDE RECORDS SUMMARY | 2024-07-03 07:31 | XMS_ITS ---
Author Organization [facility] Address [address] [place] [address] Care Team Providers Care Belt Knife Feeder Name Role Phone Christian Lewis MD Primary Care Provider Gilberto Hollingsworth Unavailable [phone] REASON FOR VISIT anemic, heme positive stool Encounters Encounter Location Date Provider Diagnosis [facility] [address] [place] [id number] 06/25/2024 Gilberto Hernandez PLAN OF TREATMENT Next Appt Details Provider Name:Gilberto Hernandez , 02/02/2025 09:50:00 AM, [address], [address], [place], [address],
--- OUTSIDE RECORDS SUMMARY | 2024-07-03 07:31 | XMS_ITS | Clinical Summary ---
Author Organization [facility] Address [address] [place] [address] Care Team Providers Care Plant Operator/Shift Supervisor Name Role Phone Unavailable Primary Care Provider [...]
--- OUTSIDE RECORDS SUMMARY | 2024-07-03 07:31 | XMS_ITS ---
Author Organization [facility] Address [address] [place] [address] Care Team Providers Care Field Representative/Health Education Name Role Phone Joshua KNIGHT, Christian Primary Care Provider Gilberto Hollingsworth [phone] ALLERGIES Allergen (clinical drug ingredient) Drug/Non Drug Allergy documented on EMR Reaction Allergy Type Onset Date Status lisinopril Lisinopril cough Drug Allergy Activ e REASON FOR VISIT Patient presents today for barretts, elevated LFTs MEDICATIONS Medication SIG (Take, Route, Frequency, Duration) Notes Start Date End Date Status Ferrous Sulfate 324 (65 Fe) MG TAKE 1 TABLET BY MOUTH EVERY DAY Oral for 30 Days Active Furosemide 20 MG TAKE 1 TABLET BY LATIA TH EVERY DAY Oral for 30 Days Active Cyanocobalamin 1000 MCG/ML PLEASE SEE AT TACHED FOR DETAILED DIRECTIONS Injection for 84 Days Active Omeprazole 40 MG TAKE 1 CAPSULE BY MO UTH TWICE A DAY for 90 Active Ursodiol 500 MG TAKE 2 TABLETS BY MO UT EVERY MORNING AND TAKE 1 TABLET BY MOUTH EVERY EVENING for 90 Active Vitamin D 2000 UNIT 1 tablet Orally Once a day Active Atorvastatin Calcium 20 MG 1 tablet Oral ly Once a day Active Levothyroxine Sodium 100 MCG 1 tablet in the morning on an empty stomach Orally Once a day Active Valsartan-hydroCHLOROthiazid e 160-12.5 MG 1 tablet Orally Once a day Active Iron (Ferrous Sulfate) 325 (65 Fe) MG 1 tablet Orally Once a day Active Cefuroxime Axetil 500 MG TAKE 1 TABLET B Y MOUTH TWICE A DAY Oral for 4 Days Active SOCIAL HISTORY Tobacco Use: Social History [...] W/U Status Risk SNOMED Code Notes Problem 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 (09229401) VITAL SIGNS BMI 31.7 kg/m2 07/01/2024 Blood pressure systolic 001 mm Hg 07/01/19 25 Blood pressure diastolic 01 mm Hg 025 Height 65.25 in 07/01/2024 Temperature 96.9 degrees Fahrenheit 07/01/19 25 Weight 192 lbs 07/01/2024 Encounters Encounter Location Date Provider Diagnosis [facility] [address] [place] [address] 07/01/2024 Gilberto Hernandez Barretts esophagus without dysplasia K22.70 ; Fatty liver K76.0 ; Iron deficiency anemia, unspecified iron deficiency anemia type D50.9 ; Other cirrhosis of liver K74.69 and Duodenal adenoma D13.2 ASSESSMENTS Encounter Date Diagnosis Assessment Notes Treatment Notes Treatment Clinical Notes 07/01/2024 Barretts esophagus without dysplasia (ICD-10 - K22.70) 07/01/2024 Fatty liver (ICD-10 - K76.0) 07/01/2024 Iron deficiency anemia, unspecified iron deficiency anemia type (ICD-10 - D50.9) Start taking the oral Iron twice a day with a stool softener at least once every day. Increase the stool softener to twice a day if you're becoming more constipated on the Iron. Continue the B12 shots. We can always arrange for an Iron IV infusion if need be. 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 Increase the stool softener to twice a day if you're becoming more constipated on the Iron. Continue the B12 shots. We can always arrange for an Iron IV infusion if need be. Pending Test Test Name Order Date IRON + IBC (FE) 07/01/2024 CBC w DIFF 07/01/2024 Ferritin 07/01/2024 US abdomen comp w elastography US duplex arterial venous comp 5 Next Appt Details Follow Up: 2024, Adeel n: Provider Name:Gilberto Hernandez , 02/02/2025 09:50:00 AM, [address], [address], [place], [address],
--- OUTSIDE RECORDS SUMMARY | 2024-07-03 07:31 | XMS_ITS ---
Author Organization [facility] Address [address] [place] [address] Care Team Providers Care Shingle Sawyer Name Role Phone Christian Lewis MD Primary Care Provider Maite Mayfield [phone] REASON FOR VISIT AGRICULTURAL LABOR CAMP MANAGER cx same day- car trouble Encounters Encounter Location Date Provider Diagnosis [facility] [address] [place] [address] 07/24/2023 Maite Cedeno Plan Of Treatment No Information Progress Notes * Mary Lou CELESTIN SDOB:1945 (78 yo F)Acc No.[id number]:07/24/2023 Patient:?Mary Lou Celestin :1945???Age:78 Y???Sex:Female Address:[address] [facility] [place], [address] * true * Date:? Generated for Printi rashmi/Ligia/eTransmitting on:?07/03/2024 07:30 AM EST
--- OUTSIDE RECORDS SUMMARY | 2024-07-03 07:31 | XMS_ITS ---
Author Organization Christian Lewis MD Address [address] [facility] [address] [place] [phone] Care Team Providers Care Residential Subcontractor Name Role Phone Christian Lewis Primary Care Provider REASON FOR VISIT ER/Discharge Encounters Encounter Location Date Provider Diagnosis Christian Lewis MD [address] [place] [address] [address] [place] [phone] 06/25/2024 Christian Lewis Plan Of Treatment Next Appt Details Provider Name:Christian taylor, 07/03/2024 08:30:00 AM, [address] [place] [address], [address], [phone], Provider Name:Christian Martin ier, 07/24/2024 07:30:00 AM, [address] [place] [address], [address], [phone], Provider Name:Christian taylor, 11/27/2024 07:15:00 AM, [address] [place] [address], [address], [phone], Provider Name:Christian taylor, 12/04/2024 09:30:00 AM, [address] [place] [address], [phone], Progress Notes * CELESTINMary Lou DOWNING SDOB:1945 (78 yo F)Acc No.[id number]:06/25/2024 Patient:?Mary Lou CELESTIN S :1945???Age:78 Y???Sex:Female Address:[address] [place] [address], [facility] [place] [address] * true * Date:? Generated for Suzanne caraballo/Ligia/eTransmitting on:?07/03/2024 07:31 AM EST
--- OUTSIDE RECORDS SUMMARY | 2024-07-03 07:31 | XMS_ITS ---
Author Organization [facility] Address [address] [facility] [place] [address] Care Team Providers Care Rv Technician Name Role Phone Christian Lewis MD Primary Care Provider Maite Mayfield Unavailable [phone] Allergies No Known Allergies REASON FOR VISIT [...] 07/24/2023 Encounters Encounter Location Date Provider Diagnosis [facility] [address] [place] [address] 07/24/2023 Maite Cedeno Ingrown nail L60.0 Assessments Encounter Date Diagnosis (ICD Code) Assessment Notes Treatment Notes Treatment Clinical Notes Section Notes 07/24/2023 Ingrown nail (ICD-10 - L60.0) Plan Of Treatment Next Appt Details Follow Up: prn, Reason: Progress Notes * Mary Lou CELESTIN SDOB:1945 (78 yo F)Acc No.[id number]:07/24/2023 Progress Notes Patient:?Mary Lou Celestin S Provider:?Maite Cedeno DPM :1945???Age:78 Y???Sex:Female D ate:07/24/2023 Address:[address] [facility] [place] [id number] Pcp:Christian Lewis MD Subjective: * Chief Complaints: [...] yes, walking. ?Marital status: . 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 * Medications:?TakingIron Melisa min D3 Ursodiol 500 [...] Provider:?Maite Cedeno DPM Date:?10/2023 Generated for Suzanne caraballo/Ligia/Jessicasmitting on:?07/03/2024 07:31 AM EST History and Physical Notes * [...]
--- OUTSIDE RECORDS SUMMARY | 2024-07-03 07:32 | XMS_ITS ---
Author Organization Christian Lewis MD Address [address] [place], [place] [phone] Care Team Providers Care Processing Talc And Borate Supervisor Name Role Phone Christian Lewis Primary Care Provider Allergies Allergen (clinical drug ingredient) Drug/Non Drug Allergy documented on EMR Reaction Allergy Type Onset Date Status lisinopril Lisinopril cough Drug Allergy Activ e REASON FOR VISIT PH/TCM Medications Medication SIG (Take, Route, Frequency, Duration) Notes Start Date End Date Status Valsartan-hydroCHLOROthiazid e 160-12.5 MG TAKE 1 TABLET BY MOUTH EVERY DAY Active Ferrous Sulfate 325 (65 Fe) MG 1 tablet Orally Once a day 02/23/2021 Active Levothyroxine Sodium 100 MCG TAKE 1 TABL ET BY MOUTH EVERY DAY IN THE MORNING ON EMPTY STOMACH Active Ursodiol 500 MG TAKE 2 TABLETS BY MO UTH EVERY MORNING AND 1 TAB EVERY EVENING 90 for 90 Active Atorvastatin Calcium 20 MG TAKE 1 TABLET BY MOUTH EVERY DAY Active Cefuroxime Axetil 500 MG 1 tablet Orally every 12 hrs Active Omeprazole 40 MG 1 capsule Orally Onc e a day Active Vitamin D 2000 UNIT Orally Active Problems Problem Type SNOMED Code ICD Code Onset Dates Problem Status W/U Status Risk Notes Problem [id number] Severe aortic stenosis (I35.0) Active confirmed Vital Signs Blood pressure systolic 112 mm Hg 06/30/19 25 Blood pressure diastolic 60 mm Hg 025 Height 65.25 in 06/30/2024 Weight 190 lbs 06/30/2024 BMI 31.37 kg/m2 06/30/2024 Encounters Encounter Location Date Provider Diagnosis Christian Lewis MD [address] [place] [address] [place] [phone] 06/30/2024 Christian Lewis Gastrointestinal hemorrhage associated with duodenitis K29.81 ; Tubular adenoma D36.9 and Severe aortic stenosis I35.0 Assessments Encounter Date Diagnosis (ICD Code) Assessment Notes Treatment Notes Treatment Clinical Notes Section Notes 06/30/2024 Gastrointestinal hemorrhage associated with duodenitis (ICD-10 - K29.81) doing well but hct was still low when she left the hospital Total time spent on the date of the encounter is 35 minutes including both face to face time spent and time spent reviewing documentation, pertinent lab data, studies and counseling the patient. 06/30/2024 Tubular adenoma (ICD-10 - D36.9) to follow up with dr cheema 06/30/2024 Severe aortic stenosis (ICD-10 - I35.0) to see cardiology next week Plan Of Treatment Treatment Notes Assessment Notes Gastrointestinal hemorrhage associated with duodenitis doing well but hct was still low when she left the hospital Total time spent on the date of the encounter is 35 minutes including both face to face time spent and time spent reviewing documentation, pertinent lab data, studies and counseling the patient. Tubular adenoma to follow up with dr cheema Severe aortic stenosis to see cardiology next week Future Test Test Name Order Date Complete Blood Count Auto Diff Next Appt Details Provider Name:Christian taylor, 07/03/2024 08:30:00 AM, [address] [place] [address], Suite [facility], [place], [place], [phone], Provider Name:Christian taylor, 07/24/2024 07:30:00 AM, [address] [place] [address], [address], [phone], Provider Name:Christian taylor, 11/27/2024 07:15:00 AM, [address] [place] [address], [address] [place] [address], [phone], Provider Name:Christian taylor, 12/04/2024 09:30:00 AM, [address], [address], [place], [place], [phone], Progress Notes * Mary Lou CELESTIN SDOB:1945 (78 yo F)Acc No.[id number]:06/30/2024 Patient:?Mary Lou CELESTIN Provider:?Christian Lewis MD :1945???Age:78 Y???Sex:Female D ate:06/30/2024 Address:[address] [place] [address] [address] [facility] Subjective: * Chief Complaints: * ???PH/TCM * HPI: ???Symptom(s):?patient is a 78 yo female was hospitalized for gi bleed and severe shortness of as well as aortic stenosis, discharge summary has been reviewed and dmoedications reconcilled. * ROS:?General/Constitutional:?Denies?Chills.?Denies?Fatigue.?Denies?Fever.?Denies?Headache.?ENT:?Patient denies?decreased sense of smell, any loss of taste, sore throat.?Denies?Sore throat.?Respiratory:?Denies?Cough.?Admits?Shortness of breath at rest.?Admits?Shortness of breath with exertion.?Cardiovascular:?Denies?Chest pain at rest.?Denies?Chest pain with exertion.?Denies?Dizziness.?Denies?Palpitations.?Admits?Shortness of breath.?Gastrointestinal:?Denies?Diarrhea.?Denies?Nausea.?Musculoskeletal:?Patient denies?muscle aches.?Peripheral Vascular:?Patient denies?red and blue toes.? * Medical History:? * Surgical History:? * Hospitalization/Major Diagno stic Procedure:? * Medications:?TakingCefuroxim e Axetil 500 MG Tablet 1 tablet Orally every 12 hrs Vitamin D 2000 UNIT Capsule Orally Omeprazole 40 MG Capsule Delayed Release 1 capsule Orally Once a day Atorvastatin Calcium 20 MG Tablet TAKE 1 TABLET BY MOUTH EVERY DAY Ursodiol 500 MG Tablet TAKE 2 TABLETS BY MOUTH EVERY MORNING AND 1 TAB EVERY EVENING 90 Ferrous Sulfate 325 (65 Fe) MG Tablet 1 tablet Orally Once a day Valsartan-hydroCHLOROthiazide 160-12.5 MG Tablet TAKE 1 TABLET BY MOUTH EVERY DAY Levothyroxine Sodium 100 MCG Tablet TAKE 1 TABLET BY MOUTH EVERY DAY IN THE MORNING ON EMPTY STOMACH Medication List reviewed and reconciled with the patientTaking Cefuroxime Axetil 500 MG Tablet 1 tablet Orally every 12 hrs Taking Vitamin D 2000 UNIT Capsule Orally Taking Omeprazole 40 MG Capsule Delayed Release 1 capsule Orally Once a day Taking Atorvastatin Calcium 20 MG Tablet TAKE 1 TABLET BY MOUTH EVERY DAY Taking Ursodiol 500 MG Tablet TAKE 2 TABLETS BY MOUTH EVERY MORNING AND 1 TAB EVERY EVENING 90 Taking Ferrous Sulfate 325 (65 Fe) MG Tablet 1 tablet Orally Once a day Taking Valsartan-hydroCHLOROthiazide 160-12.5 MG Tablet TAKE 1 TABLET BY MOUTH EVERY DAY Taking Levothyroxine Sodium 100 MCG Tablet TAKE 1 TABLET BY MOUTH EVERY DAY IN THE MORNING ON EMPTY STOMACH Medication List reviewed and reconciled with the patient * Allergies:?Lisinopril: cough yes[Allergies Verified] Objective: * Vitals:?Ht: 65.25, Wt: 190, BMI:31.37, BP:112/60, Wt-k.18. * Examination: ???General Examination: ?GENERAL APPEARANCE:?alert, well hydrated, in no distress.?HEAD:?normocephalic.?SKIN:?good turgor.?HEART:?3/6 uriah at apex.?LUNGS:?no wheezes, rales, rhonchi, good air movement, clear to auscultation bilaterally.? Assessment: * Assessment: 1.?Gastrointestinal hemorrha ge associated with duodenitis - K29.81 (Primary)???2.?Tubular adenoma - D36.9???3.?Severe aortic stenosis - I35.0??? Plan: * Treatment: 2.?Tubular adenoma? Notes: to follow up with dr cheema?? 3.?Severe aortic stenosis? Notes: to see cardiology next week?? * Procedure Codes:? * * Sign off status: Completed true * Provider:?Christian Lewis MD Date:?0 06/30/2024 Generated for Suzanne caraballo/Ligia/Jessicasmitting on:?07/03/2024 07:31 AM EST History and Physical Notes * HPI (History of Present Illness) Category Sub-Category Detail Notes Category Not es Symptom(s) patient is a 78 yo female was hospitalized for gi bleed and severe shortness of as well as aortic stenosis, discharge summary has been reviewed and dmoedications reconcilled. Examination Category Sub-Category Detail Notes Category Not es General Examination GENERAL APPEARANCE: alert, w ell hydrated, in no distress HEAD: normocephalic HEART: 3/6 uriah at apex LUNGS: no wheezes, rales, r honchi, good air movement, clear to auscultation bilaterally SKIN: good turgor
--- OUTSIDE RECORDS SUMMARY | 2024-07-03 07:32 | XMS_ITS ---
Author Organization Christian Lewis MD Address [address] [place] [phone] Care Team Providers Care Entry Level Chemist Name Role Phone Christian Lewis Primary Care Provider [phone] REASON FOR VISIT CBC Encounters Encounter Location Date Provider Diagnosis Christian Lewis MD [address] [place] [phone] 07/03/2024 Christian Lewis Lymphocytosis D72.82 0 Assessments Encounter Date Diagnosis (ICD Code) Assessment Notes Treatment Notes Treatment Clinical Notes Section Notes 07/03/2024 Lymphocytosis (ICD-10 - D72.820) Plan Of Treatment Pending Test Test Name Order Date Complete Blood Count Auto Diff Next Appt Details Provider Name:Christian taylor, 07/03/2024 08:30:00 AM, [address] [place] [address], [address], [phone], Provider Name:Christian taylor, 07/24/2024 07:30:00 AM, [address] [place] [address], [address], [phone], Provider Name:Christian taylor, 11/27/2024 07:15:00 AM, [address] [place] [address], [address] [place], [phone], Provider Name:Christian Martin ier, 12/04/2024 09:30:00 AM, [address] [facility], [address], [place], [phone], Progress Notes * CELESTINMary Lou DOWNING SDOB:1945 (78 yo F)Acc No.[id number]:07/03/2024 Progress Note Patient:?Mary Lou CELESTIN Provider:?Christian Lewis MD :1945???Age:78 Y???Sex:Female D ate:07/03/2024 Address:[address] [place], [place] [phone] Subjective: * Chief Complaints: * ???1. CBC. * Medical History:? Objective: * Vitals:? Assessment: * Assessment: 1.?Lymphocytosis - D72.820 ( Primary)??? Plan: * Treatment: * * The named appointment provid er may or may not be the originator of this progress note, and it is not deemed complete until electronically signed by the appointment provider. Sign off status: Pending * Provider:?Christian Lewis MD Date:?0 07/03/2024 Generated for Suzanne caraballo/Ligia/Lexitting on:?07/03/2024 07:31 AM EST
[2024-07-03 10:15] LABS: MANUAL DIFF FLAG NO
[2024-07-03 10:24] LABS: Basophils Percent Auto 0.6 % (0-2); Eosinophils Absolute Auto 0.1 X10*3/uL (0.0-0.4); Eosinophils Percent Auto 3.2 % (0-4); Hematocrit 29.1 % (37.0-47.0); Hemoglobin 8.7 g/dl (12.0-16.0); Imm Gran Abs Auto 0.01 X10*3/uL (0.00-0.03); Imm Gran Pct Auto 0.3 % (0.0-0.4); Lymphocytes Absolute Auto 0.8 X10*3/uL (1.2-4.9); Lymphocytes Percent Auto 21.7 % (20-40); Mean Corpuscular HGB Conc 29.9 g/dl (31.0-35.0); Mean Corpuscular Volume 83.6 fL (80.0-98.0); Mean Platelet Volume 11.2 fL (9.4-12.3); Monocytes Absolute Auto 0.2 X10*3/uL (0.1-1.2); Monocytes Percent Auto 6.9 % (2-11); Neutrophils Absolute Auto 2.3 x10*3/uL (2.0-8.3); Neutrophils Percent Auto 67.3 % (45-73); Red Blood Count 3.48 X10*6/uL (4.20-5.50); White Blood Count 3.5 X10*3/uL (4.8-10.8)
[2024-07-03 10:29] LABS: Platelet Count 67 X10*3/uL (160-400)
[2024-07-03 11:14] LABS: Iron 41 mcg/dL (30-160); Percent Iron Saturation 13 % (15-50); Total Iron Binding Capacity 312 mcg/dL (228-428); Unsaturated Iron Binding 271 ug/dL
[2024-07-03 11:32] LABS: Ferritin 41 ng/mL (10-250)
== END 2024-07-03 07:28 | disposition home or self-care (01) ==
LOC: HO.10HDL 07:27
PROVIDERS: Referring Provider Internal Medicine; Visit Provider Internal Medicine
DX: K76.0 Fatty (change of) liver, not elsewhere classified (principal); D50.9 Iron deficiency anemia, unspecified; K74.69 Other cirrhosis of liver
CPT/HCPCS: 36415; 82728; 83540; 85025

== ENCOUNTER 2024-07-17 11:02 | Outpatient (REF) | payer MEDICARE, SELFPAY ==
[2024-07-17 11:06] LABS: MANUAL DIFF FLAG NO
[2024-07-17 11:46] LABS: Basophils Percent Auto 0.6 % (0-2); Eosinophils Absolute Auto 0.1 X10*3/uL (0.0-0.4); Hemoglobin 8.7 g/dl (12.0-16.0); Imm Gran Abs Auto 0.02 X10*3/uL (0.00-0.03); Imm Gran Pct Auto 0.6 % (0.0-0.4); Lymphocytes Absolute Auto 1.1 X10*3/uL (1.2-4.9); Lymphocytes Percent Auto 30.7 % (20-40); Mean Corpuscular Hemoglobin 25.7 pg (27.0-33.0); Mean Corpuscular Volume 85.8 fL (80.0-98.0); Mean Platelet Volume 11.1 fL (9.4-12.3); Monocytes Absolute Auto 0.3 X10*3/uL (0.1-1.2); Monocytes Percent Auto 9.6 % (2-11); Neutrophils Percent Auto 56.5 % (45-73); Red Blood Count 3.38 X10*6/uL (4.20-5.50); Red Cell Distribution Width 22.9 % (11.0-16.0); White Blood Count 3.5 X10*3/uL (4.8-10.8)
[2024-07-17 11:48] LABS: Platelet Count 99 X10*3/uL (160-400)
--- OUTSIDE RECORDS SUMMARY | 2024-07-17 12:46 | XMS_ITS ---
Author Organization Christian Lewis MD Address [address] [place], [place] [phone] Care Team Providers Care Quarter Seamer Name Role Phone Christian Lewis Primary Care Provider Results Component Value Reference Range Notes Complete Blood Count Auto Di ff Reviewed date:07/17/2024 12:39:24 PM Interpretation: Performing Lab:[facility], [address] [place] [phone] Notes/Report: White Blood Count 3.5 4.8-10.8 X10*3/uL Red Blood Count 3.38 4.20-5.50 X10*6/uL Hemoglobin 8.7 12.0-16.0 g/dl Hematocrit 29.0 37.0-47.0 % Mean Corpuscular Volume 85.8 80.0-98.0 fL Mean Corpuscular Hemoglobin 25.7 27.0-33.0 pg Mean Corpuscular HGB Conc 30.0 31.0-35.0 g/dl Red Cell Distribution Width 22.9 11.0-16.0 % Platelet Count 99 160-400 X10*3/uL Mean Platelet Volume 11.1 9.4-12.3 fL Neutrophils Percent Auto 56.5 45-73 % Imm Gran Pct Auto 0.6 0.0-0.4 % Lymphocytes Percent Auto 30.7 20-40 % Monocytes Percent Auto 9.6 2-11 % Eosinophils Percent Auto 2.0 0-4 % Basophils Percent Auto 0.6 0-2 % NRBC Pct Auto 0.0 0.0-0.2 /100WBC Neutrophils Absolute Auto 2.0 2.0-8.3 x10*3/u L Imm Gran Abs Auto 0.02 0.00-0.03 X10*3/uL Lymphocytes Absolute Auto 1.1 1.2-4.9 X10*3/u L Monocytes Absolute Auto 0.3 0.1-1.2 X10*3/uL Eosinophils Absolute Auto 0.1 0.0-0.4 X10*3/u L Basophils Absolute Auto 0.0 0.0-0.2 X10*3/uL NRBC Abs Auto 0.000 0.0-0.012 X10*3/uL REASON FOR VISIT CBC Encounters Encounter Location Date Provider Diagnosis Christian Lewis MD [address] [place] [phone] 07/17/2024 Christian Lewis Gastrointestinal hemorrhage associated with duodenitis K29.81 Assessments Encounter Date Diagnosis (ICD Code) Assessment Notes Treatment Notes Treatment Clinical Notes Section Notes 07/17/2024 Gastrointestinal hemorrhage associated with duodenitis (ICD-10 - K29.81) Plan Of Treatment Next Appt Details Provider Name:Christian taylor, 07/24/2024 07:30:00 AM, [address] [place] [address], [phone], Provider Name:Christian taylor, 11/27/2024 07:15:00 AM, [address] [place] [address], [phone], Provider Name:Christian taylor, 12/04/2024 09:30:00 AM, [address] [place] [address], [phone], Progress Notes * Mary Lou CELESTIN SDOB:1945 (79 yo F)Acc No.[id number]:07/17/2024 Progress Note Patient:?Mary Lou CELESTIN Provider:?Christian Lewis MD :1945???Age:79 Y???Sex:Female D ate:07/17/2024 Address:[address] [place] [address] [facility] Subjective: * Chief Complaints: * ???1. CBC. * Medical History:? Objective: * Vitals:? Assessment: * Assessment: 1.?Gastrointestinal hemorrha ge associated with duodenitis - K29.81??? Plan: * Treatment: * Procedure Codes:?55260 VENIP UNCT, ROUTINE* * * The named appointment provid er may or may not be the originator of this progress note, and it is not deemed complete until electronically signed by the appointment provider. Sign off status: Pending * Provider:?Christian Lewis MD Date:?0 07/17/2024 Generated for Suzanne caraballo/Ligia/Lexitting on:?07/17/2024 12:46 PM EST
--- OUTSIDE RECORDS SUMMARY | 2024-07-17 12:46 | XMS_ITS | Patient Health Record ---
Author Organization [facility] Address [address] [place] [address] Care Team Providers Care Electoral Officer Name Role Phone Christian Lewis MD Primary Care Provider Maite Mayfield Unavailable [phone] Allergies No Known Allergies Reason For Referral [...] Provider Diagnosis [facility] [address] [place] [address] 07/24/2023 Maite Cedeno Ingrown nail L60.[address] [place] [address] 07/24/2023 Maite Cedeno Assessments Encounter Date Diagnosis (ICD Code) Assessment Notes Treatment Notes Treatment Clinical Notes Section Notes 07/24/2023 Ingrown nail (ICD-10 - L60.0) Plan Of Treatment No Information Insurance Providers Payer Name Payer Address Payer Phone Subscriber Number Group Number Insured Name Patient Relationship to Insured Coverage Start Date Coverage End Date [employer] [place] Medicare Advantage [facility] [address] [facility] [place] [address] [id number] Mary Lou Celestin Self - patient is the insured Medical (General) History Medical History History ICD Code High blood pressure Scarlet fever thyroid Chicken pox Surgical History Surgery Date(Month/Year) hysterectomy 1985 knee surgery, left shoulder surgery right stomach surgery 1995 brain aneurysm 2007 colonoscopy 05/29/23
--- OUTSIDE RECORDS SUMMARY | 2024-07-17 12:46 | XMS_ITS ---
Author Organization [facility] Address [address] [place] [address] Care Team Providers Care Slat Twister Name Role Phone Christian Lewis MD Primary Care Provider Maite Mayfield [phone] REASON FOR VISIT HOSE STRIPPER cx same day- car trouble Encounters Encounter Location Date Provider Diagnosis [facility] [address] [place] [address] 07/24/2023 Maite Cedeno Plan Of Treatment No Information Progress Notes * Mary Lou CELESTIN SDOB:1945 (78 yo F)Acc No.[id number]:07/24/2023 Patient:?Mary Lou Celestin :1945???Age:78 Y???Sex:Female Address:[address] [facility] [place], [address] * true * Date:? Generated for Printi rashmi/Ligia/eTransmitting on:?07/17/2024 12:46 PM EST
--- OUTSIDE RECORDS SUMMARY | 2024-07-17 12:46 | XMS_ITS ---
Author Organization [facility] Address [address] [place] [address] Care Team Providers Care Grinding Operator Name Role Phone Christian Lewis MD Primary Care Provider Maite Mayfield [phone] REASON FOR VISIT CONCIERGE RECEPTIONIST PPWK Entered Encounters Encounter Location Date Provider Diagnosis [facility] [address] [place] [address] 07/16/2023 Maite Cedeno Plan Of Treatment No Information Progress Notes * Mary Lou CELESTIN SDOB:1945 (78 yo F)Acc No.[id number]:07/16/2023 Patient:?Mary Lou Celestin :1945???Age:78 Y???Sex:Female Address:[address] [facility] [place], [address] * true * Date:? Generated for Suzanne caraballo/Ligia/eTransmitting on:?07/17/2024 12:46 PM EST
--- OUTSIDE RECORDS SUMMARY | 2024-07-17 12:46 | XMS_ITS ---
Author Organization [facility] Address [address] [place] [address] Care Team Providers Care Steam Box Tender Name Role Phone Christian Lewis MD Primary Care Provider Gilberto Hollingsworth Unavailable [phone] REASON FOR VISIT Patient presents today for marie's ,elevated lft's Encounters Encounter Location Date Provider Diagnosis [facility] [address] [facility] [address] [place] [address] 03/20/2024 Gilberto Hernandez PLAN OF TREATMENT Next Appt Details Provider Name:Gilberto Hernandez , 02/02/2025 09:50:00 AM, [address], [address], [place], [address],
--- OUTSIDE RECORDS SUMMARY | 2024-07-17 12:47 | XMS_ITS ---
Author Organization [facility] Address [address] [place] [address] Care Team Providers Care Deputy Commissioner Name Role Phone Christian Lewis MD Primary Care Provider Gilberto Hollingsworth Unavailable [phone] REASON FOR VISIT anemic, heme positive stool Encounters Encounter Location Date Provider Diagnosis [facility] Inpatient [address] [place], [place] [phone] 06/25/2024 Gilberto Hernandez PLAN OF TREATMENT Next Appt Details Provider Name:Gilberto Hernandez , 02/02/2025 09:50:00 AM, [address], [address], [place], [address],
--- OUTSIDE RECORDS SUMMARY | 2024-07-17 12:47 | XMS_ITS ---
Author Organization Christian Lewis MD Address [address] [place], [place] [phone] Care Team Providers Care Occupational Therapy Teacher Name Role Phone Christian Lewis Primary Care Provider Allergies Allergen (clinical drug ingredient) Drug/Non Drug Allergy documented on EMR Reaction Allergy Type Onset Date Status Lisinopril cough Drug Allergy Active REASON FOR VISIT PH/TCM Medications Medication SIG [...] Problem Status W/U Status Risk Notes Problem [id number] Severe aortic stenosis (I35.0) Active confirmed Vital Signs Blood pressure systolic 112 mm Hg 06/30/19 25 Blood pressure diastolic 60 mm Hg 025 Height 65.25 in 06/30/2024 Weight 190 lbs 06/30/2024 BMI 31.37 kg/m2 06/30/2024 Encounters Encounter Location Date Provider Diagnosis Christian Lewis MD [address] [place] [phone] 06/30/2024 Christian Lewis Gastrointestinal hemorrhage associated with [...] aortic stenosis to see cardiology next week Next Appt Details Provider Name:Christian taylor, 07/24/2024 07:30:00 AM, [address] [place] [address], [address] [place] [address], [phone], Provider Name:Christian taylor, 11/27/2024 07:15:00 AM, [address] [place] [address], [address] [place] [address], [phone], Provider Name:Christian taylor, 12/04/2024 09:30:00 AM, [address] [place] [address], [address] [place] [address], [phone], Progress Notes * Mary Lou CELESTIN SDOB:1945 (78 yo F)Acc No.[id number]:06/30/2024 Patient:?Mary Lou CELESTIN Provider:?Christian Lewis MD :1945???Age:78 Y???Sex:Female D ate:06/30/2024 Address:[address] [place] [address] Subjective: * Chief Complaints: * ???PH/TCM * [...] Lewis MD Date:?0 06/30/2024 Generated for Suzanne caraballo/Ligia/Lexitting on:?07/17/2024 12:47 PM EST History and Physical Notes * HPI [...]
--- OUTSIDE RECORDS SUMMARY | 2024-07-17 12:47 | XMS_ITS ---
Author Organization [facility] Address [address] [place] [address] Care Team Providers Care Culinary Worker Name Role Phone Christian Lewis MD Primary Care Provider Maite Mayfield Unavailable [phone] Allergies No Known Allergies REASON FOR VISIT [...] 07/24/2023 Encounters Encounter Location Date Provider Diagnosis [facility] [address] [place] [address] 07/24/2023 Maite Cedeno Ingrown nail L60.0 Assessments Encounter Date Diagnosis (ICD Code) Assessment Notes Treatment Notes Treatment Clinical Notes Section Notes 07/24/2023 Ingrown nail (ICD-10 - L60.0) Plan Of Treatment Next Appt Details Follow Up: prn, Reason: Progress Notes * Mary Lou CELESTIN SDOB:1945 (78 yo F)Acc No.[id number]:07/24/2023 Progress Notes Patient:?Mary Lou Celestin S Provider:?Maite Cedeno DPM :1945???Age:78 Y???Sex:Female D ate:07/24/2023 Address:[address] [place] [facility] Pcp:Christian Lewis MD Subjective: * Chief Complaints: [...] yes, walking. ?Marital status: . 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 * Medications:?TakingIron Melisa min D3 Ursodiol 500 [...] Cedeno DPM Date:?10/2023 Generated for Suzanne caraballo/Ligia/Jessicasmitting on:?07/17/2024 12:47 PM EST History and Physical [...]
--- OUTSIDE RECORDS SUMMARY | 2024-07-17 12:47 | XMS_ITS | Patient Health Record ---
Author Organization [facility] Address [address] [place] [address] Care Team Providers Care Television Picture Tube Rebuilder Name Role Phone Christian Lewis MD Primary Care Provider Gilberto Hollingsworth [phone] ALLERGIES Allergen (clinical drug ingredient) Drug/Non Drug Allergy documented on EMR Reaction Allergy Type Onset Date Status Lisinopril cough Drug Allergy Active RESULTS Component Value Reference Range Notes Ferritin Reviewed date:07/05/2024 03:39:42 PM Interpretation: Performing Lab:[facility], [address] [place] [phone] Notes/Report: Ferritin 41 10-250 ng/mL Pathology Reviewed date:07/01/2024 07:47:55 PM Interpretation: Performing Lab:[address] [phone] Notes/Report: Complete Blood Count Auto Di ff (Not yet reviewed by provider) Interpretation: Performing Lab:[address] [phone] Notes/Report: White Blood Count 3.5 4.8-10.8 X10*3/uL Red Blood Count 3.48 4.20-5.50 X10*6/uL Hemoglobin 8.7 12.0-16.0 g/dl Hematocrit 29.1 37.0-47.0 % Mean Corpuscular Volume 83.6 80.0-98.0 fL Mean Corpuscular Hemoglobin 25.0 27.0-33.0 pg Mean Corpuscular HGB Conc 29.9 31.0-35.0 g/dl Red Cell Distribution Width 19.0 11.0-16.0 % Platelet Count 67 160-400 X10*3/uL Mean Platelet Volume 11.2 9.4-12.3 fL Neutrophils Percent Auto 67.3 45-73 % Imm Gran Pct Auto 0.3 0.0-0.4 % Lymphocytes Percent Auto 21.7 20-40 % Monocytes Percent Auto 6.9 2-11 % Eosinophils Percent Auto 3.2 0-4 % Basophils Percent Auto 0.6 0-2 % NRBC Pct Auto 0.0 0.0-0.2 /100WBC Neutrophils Absolute Auto 2.3 2.0-8.3 x10*3/u L Imm Gran Abs Auto 0.01 0.00-0.03 X10*3/uL Lymphocytes Absolute Auto 0.8 1.2-4.9 X10*3/u L Monocytes Absolute Auto 0.2 0.1-1.2 X10*3/uL Eosinophils Absolute Auto 0.1 0.0-0.4 X10*3/u L Basophils Absolute Auto 0.0 0.0-0.2 X10*3/uL NRBC Abs Auto 0.000 0.0-0.012 X10*3/uL IRON PROFILE Reviewed date:07/05/2024 03:39:35 PM Interpretation: Performing Lab:[facility], [address] [place] [phone] Notes/Report: Iron 41 30-160 mcg/dL Total Iron Binding Capacity 312 228-428 mcg/d L Percent Iron Saturation 13 15-50 % Unsaturated Iron Binding 271 REASON FOR REFERRAL No Information MEDICATIONS Medication SIG (Take, Route, Frequency, Duration) Notes Start Date End Date Status Ferrous Sulfate 324 (65 Fe) MG TAKE 1 TABLET BY MOUTH EVERY DAY Oral for 30 Days Active Furosemide 20 MG TAKE 1 TABLET BY LATIA TH EVERY DAY Oral for 30 Days Active Cefuroxime Axetil 500 MG TAKE 1 TABLET B Y MOUTH TWICE A DAY Oral for 4 Days Active Cyanocobalamin 1000 MCG/ML PLEASE SEE AT TACHED FOR DETAILED DIRECTIONS Injection for 84 Days Active Vitamin D 2000 UNIT 1 tablet Orally Once a day Active Atorvastatin Calcium 20 MG 1 tablet Oral ly Once a day Active Omeprazole 40 MG TAKE 1 CAPSULE BY MO UTH TWICE A DAY for 90 Active Ursodiol 500 MG TAKE 2 TABLETS BY MO UTH EVERY MORNING AND TAKE 1 TABLET BY MOUTH EVERY EVENING for 90 Active Levothyroxine Sodium 100 MCG 1 tablet in the morning on an empty stomach Orally Once a day Active Valsartan-hydroCHLOROthiazid e 160-12.5 MG 1 tablet Orally Once a day Active Iron (Ferrous Sulfate) 325 (65 Fe) MG 1 tablet Orally Once a day Active IMMUNIZATIONS Vaccine Route Administration Date Status Comme nts Influenza Unknown 02/26/2018 Administered Influenza Unknown 03/20/2019 Administered Influenza Unknown 02/17/2021 Administered Influenza Unknown 02/12/2023 Administered Influenza Unknown 03/10/2024 Administered Influenza Unknown 03/28/2018 Refused SOCIAL HISTORY [...] W/U Status Risk SNOMED Code Notes Problem Gastro-esophageal reflux disease without esophagitis (K21.9) Active confirmed Gastro-esophage al reflux disease without esophagitis (081951853) Problem Encounter for screening for malignant neoplasm of colon (Z12.11) Active confirmed 849206184 Problem History of adenomatous polyp of colon (Z86.010) Active confirmed 763369460 Problem Personal history of colonic polyps (Z86.010) Active confirmed History of poly p of colon (situation) (280978099) Problem Iron deficiency anemia secondary to blood loss (chronic) (D50.0) Active confirmed Anemia due to chronic blood loss (disorder) (240403816) Problem 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) Active confirmed 8574247030523580 Problem Diverticulosis of large intestine without perforation or abscess without bleeding (K57.30) Active confirmed Diverticul ar disease of colon (690823484) Problem Other cirrhosis of liver (K74.69) Active confirmed 48707922 Problem Encounter for screening for malignant neoplasm of rectum (Z12.12) Active confirmed Screening for malignant neoplasm of rectum (000474671) Problem Duodenitis (K29.80) Active confirmed Du odenitis (61525618) Problem Gastroesophageal reflux disease (K21.9) Active confirmed Gastroesophagea l reflux disease (807036405) Problem Iron deficiency anemia (D50.9) Active confirmed Iron deficien cy anemia (00985307) Problem Gastroesophageal reflux disease without esophagitis (K21.9) Active confirmed 476754010 Problem Elevated liver enzymes (R74.8) Active confirmed 181357915 Problem Barretts esophagus without dysplasia (K22.70) Active confirmed 933385628 Problem Fatty liver (K76.0) Active confirmed 19 5701965 Problem Gastric polyp (K31.7) Active confirmed Gastric polyp (57008842) Problem Gastric polyps (K31.7) Active confirmed Benign neoplasm of stomach (94826007) Problem 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 (96568231) Problem Elevated alpha fetoprotein (R77.2) Active confirmed 056614266 Problem Gastritis (K29.70) Active confirmed Gas tritis (9048930) Problem Iron deficiency anemia, unspecified iron deficiency anemia type (D50.9) Active confirmed 35725207 Problem 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) Active confirmed Ennis esophag us (999304584) Problem Barretts esophagus with low grade dysplasia (K22.710) Active confirmed 1927594263015142 Problem Liver fibrosis (K74.0) Active confirmed 45516681 Problem Positive MANDY (antinuclear antibody) (R76.8) Active confirmed 191719209 Problem Liver fibrosis (K74.00) Active confirmed 36193082 VITAL SIGNS Temperature 96.9 degrees Fahrenheit 07/01/2024 Blood pressure diastolic 01 mm Hg 07/01/2024 Height 65.25 in 07/01/2024 Blood pressure systolic 001 mm Hg 07/01/2024 Weight 192 lbs 07/01/2024 BMI 31.7 kg/m2 07/01/2024 Encounters Encounter Location Date Provider Diagnosis [facility] [address] [place] [address] 03/20/2024 Gilberto Hernandez [facility] Inpatient [address], [place] [phone] 06/25/2024 Gilberto Hernandez [facility] [address] [place] [address] 07/01/2024 Gilberto Hernandez Barretts esophagus without dysplasia K22.70 ; Fatty liver K76.0 ; Iron deficiency anemia, unspecified iron deficiency anemia type D50.9 ; Other cirrhosis of liver K74.69 and Duodenal adenoma D13.2 [facility] [address] [place] [address] 03/17/2024 Gilberto Hernandez ASSESSMENTS Encounter Date Diagnosis [...] adenoma (ICD-10 - D13.2) PLAN OF TREATMENT Pending Test Test Name Order Date Hemoccult Cards (Non-Screening) 03/14/20 21 LIVER PROFILE 03/14/2021 LIVER PROFILE 08/10/2018 LIVER PROFILE 02/12/2023 LIVER PROFILE 03/27/2022 LIVER PROFILE 10/17/2019 IRON + IBC (FE) 08/08/2021 IRON + IBC (FE) 07/01/2024 CBC w DIFF 10/17/2019 CBC w DIFF 08/08/2021 CBC w DIFF 07/01/2024 CBC w DIFF 08/10/2018 CBC w DIFF 02/12/2023 CBC w DIFF 03/27/2022 PROTHROMBIN TIME (PT, INR) 10/17/2019 PROTHROMBIN TIME (PT, INR) 03/14/2021 PROTHROMBIN TIME (PT, INR) 08/10/2018 PROTHROMBIN TIME (PT, INR) 03/27/2022 ALPHA-FETOPROTEIN,TUMOR MARKER 2 ALPHA-FETOPROTEIN,TUMOR MARKER 1 ALPHA-FETOPROTEIN,TUMOR MARKER 3 ALPHA-FETOPROTEIN,TUMOR MARKER 0 MRI ABD W&WO CONTRAST 10/17/2019 US ABD 03/27/2022 US ABD 03/14/2021 Complete Blood Count Auto Diff 5 Prothrombin Time INR 02/12/2023 US abdomen comp w elastography 5 US abdomen complete 02/12/2023 US duplex arterial venous comp 5 Future Test Test Name Order Date UPPER GI ENDOSCOPY 10/23/2013 UPPER GI ENDOSCOPY 07/04/2016 COLONOSCOPY 07/04/2016 UPPER GI ENDOSCOPY 03/28/2018 UPPER GI ENDOSCOPY 02/17/2019 UPPER GI ENDOSCOPY 08/27/2019 UPPER GI ENDOSCOPY 03/14/2021 COLONOSCOPY 03/14/2021 UPPER GI ENDOSCOPY 03/27/2022 COLONOSCOPY 03/27/2022 COLONOSCOPY 02/12/2023 Next Appt Details Provider Name:Gilberto Hernandez , 02/02/2025 09:50:00 AM, [address], [address], [place], [address], Insurance Providers Payer Name Payer Address Payer Phone Subscriber Number Group Number Insured Name Patient Relationship to Insured Coverage Start Date Coverage End Date [facility] [address] [place] [address] [id number] TRENT RODRIGUEZ Self - patient is the insured MEDICAL (GENERAL) HISTORY Medical History History ICD Code GERD with Ennis's esophagu s-areas of high and low grade dysplasia seen in fall-has been going to [facility] and Dr. Ferrer for ablation Rx of the Ennis's-most recent Rx was 01/2012-biopsies in 11/2011 showed the Ennis's, but no dysplasia Hypothyroidism HTN Hyperlipidemia Tubular adenomas removed from colon in and 2011 Denies [place],DM,CVA,Lung disease,renal dise ase Brain aneurysm with Agram and clipping i n 12/2007 Duodenal tubular adenoma removed in 2009 . Most recent EGD in [facility] s in 09/2012--Bx from 35 to 27 cm all neg for Ennis's esophagus nor dysplasia-same HH noted EGD 04/2013 with me at [facility]-- small areas of Ennis's mucosa, but no [...] that was removed Surgical History Surgery Date(Month/Year) Cerebral aneursym clipping via intervent ional radiology Shoulder surgery Hysterectomy Knee surgery Yan fundoplication in 1995--Dr. Reece davis
--- OUTSIDE RECORDS SUMMARY | 2024-07-17 12:47 | XMS_ITS ---
Author Organization [facility] Address [address] [place] [address] Care Team Providers Care Fire Investigation Manager Name Role Phone Joshua KNIGHT, Christian Primary Care Provider Gilberto Hollingsworth [phone] ALLERGIES Allergen (clinical drug ingredient) Drug/Non Drug Allergy documented on EMR Reaction Allergy Type Onset Date Status Lisinopril cough Drug Allergy Active RESULTS Component Value Reference Range Notes Ferritin Reviewed date:07/05/2024 03:39:42 PM Interpretation: Performing Lab:[facility], [address] [place] [phone] Notes/Report: Ferritin 41 10-250 ng/mL REASON FOR VISIT Patient presents today for barretts, elevated LFTs MEDICATIONS Medication SIG (Take, Route, Frequency, Duration) Notes Start Date End Date Status Ferrous Sulfate 324 (65 Fe) MG TAKE 1 TABLET BY MOUTH EVERY DAY Oral for 30 Days Active Furosemide 20 MG TAKE 1 TABLET BY LATIA EVERY DAY Oral for 30 Days Active Cyanocobalamin 1000 MCG/ML PLEASE SEE AT TACHED FOR DETAILED DIRECTIONS Injection for 84 Days Active Omeprazole 40 MG TAKE 1 CAPSULE BY MO [facility] TWICE A DAY for 90 Active Ursodiol 500 MG TAKE 2 TABLETS BY MO [facility] EVERY MORNING AND TAKE 1 TABLET BY [...] Active confirmed Benign neoplasm of small intestine (52249020) VITAL SIGNS Temperature 96.9 degrees Fahrenheit 07/01/19 25 Blood pressure systolic 001 mm Hg 07/01/19 25 Blood pressure diastolic 01 mm Hg 025 Height 65.25 in 07/01/2024 Weight 192 lbs 07/01/2024 BMI 31.7 kg/m2 07/01/2024 Encounters Encounter Location Date Provider Diagnosis [facility] [address] [place] [address] 07/01/2024 Gilberto Mary Barretts esophagus without dysplasia K22.70 ; Fatty [...] IBC (FE) 07/01/2024 CBC w DIFF 07/01/2024 US abdomen comp w elastography US duplex arterial venous comp Next Appt Details Follow Up: 2024, Adeel n: Provider Name:Gilberto Hernandez , 02/02/2025 09:50:00 AM, [address] [place] [address], [address], [place], [address],
--- OUTSIDE RECORDS SUMMARY | 2024-07-17 12:47 | XMS_ITS | Clinical Summary ---
Author Organization [facility] Address [address] [place] [address] Care Team Providers Care Manager Respiratory Care Name Role Phone Unavailable Primary Care Provider [...]
--- OUTSIDE RECORDS SUMMARY | 2024-07-17 12:48 | XMS_ITS ---
Author Organization Christian Lewis MD Address [address] [place], [place] [phone] Care Team Providers Care Molecular Pathologist Name Role Phone Christian Lewis Primary Care Provider Results Component Value Reference Range Notes Complete Blood Count Auto Di ff Reviewed date:07/03/2024 12:47:18 PM Interpretation: Performing Lab:[facility], [address] [place] [phone] Notes/Report: White Blood Count 3.5 4.8-10.8 X10*3/uL [...] Location Date Provider Diagnosis Christian Lewis MD [address] [place] [phone] 07/03/2024 Christian Lewis Lymphocytosis D72.82 0 Assessments Encounter Date Diagnosis (ICD Code) Assessment Notes Treatment Notes Treatment Clinical Notes Section Notes 07/03/2024 Lymphocytosis (ICD-10 - D72.820) Plan Of Treatment Next Appt Details Provider Name:Christian taylor, 07/24/2024 07:30:00 AM, [address] [place] [address], [phone], Provider Name:Christian taylor, 11/27/2024 07:15:00 AM, [address] [place] [address], [phone], Provider Name:Christian taylor, 12/04/2024 09:30:00 AM, [address] [place] [address], [phone], Progress Notes * Mary Lou CELESTIN SDOB:1945 (79 yo F)Acc No.[id number]:07/03/2024 Progress Note Patient:?Mary Lou CELESTIN Provider:?Christian Lewis MD :1945???Age:78 Y???Sex:Female D ate:07/03/2024 Address:[address] [place] [address] Nilson dias [id number] Subjective: * Chief Complaints: * ???1. CBC. [...] MD Date:?0 07/03/2024 Generated for Suzanne caraballo/Ligia/Lexitting on:?07/17/2024 12:47 PM EST
== END 2024-07-17 11:03 | disposition home or self-care (01) ==
LOC: HO.LNP 11:02
PROVIDERS: Visit Provider Internal Medicine
DX: K29.81 Duodenitis with bleeding (principal)
CPT/HCPCS: 85025

== ENCOUNTER 2024-07-23 10:44 | Outpatient (AMB) | payer MEDICARE, SELFPAY ==
--- NOTE | 2024-07-23 11:13 | MHC.OFFVIS ---
Vital Signs 07/23/24 11:14 Height 5 ft 6 in Weight 181 lb 10.574 oz BMI 29.3 BP 100/52 L Blood Pressure Location Lt brachial Position Sitting Pulse 93 Pulse Source Pulse Oximeter Intake Visit Reasons: 6 mth fu after echo Warp Dyeing Tender Required: No Accompanied by: Self / Same As Patient Allergies No Known Allergies [No Known Allergies*] Allergy (Verified 06/23/24 15:27) Medication List - Last Reconciled 07/23/24 by Julian Henao MD atorvastatin 20 mg PO BEDTIME cholecalciferol (vitamin D3) (Vitamin D3) 50 mcg PO DAILY cyanocobalamin (vitamin B-12) 1000 mcg IM daily 06/27-06/30, then 1000 mcg IM weekly 07/07-08/04, then 1000 mcg IM monthly ferrous sulfate 324 mg PO DAILY furosemide 20 mg PO DAILY levothyroxine 100 mcg PO DAILY@0600 omeprazole 40 mg PO BID@0630,1630 syringe with needle (Syringe) As directed ursodiol 1,000 mg PO DAILY ursodiol 500 mg PO BEDTIME HPI Comments Details: Mary Lou returns for follow-up regarding aortic stenosis. She presented to the ER recently for shortness of breath and in that setting, diagnosed to have severe anemia. Hemoglobin was down to 4.9. It seems that she was appropriately treated with transfusions. Even the platelets were quite low with the low point of 67 -but unclear if it has been addressed before. Otherwise, she states she is actually feeling much better. Shortness of breath is improved. However, does not feel back to normal as yet. There is a history of unconscious episode around 2007 and at that time she was diagnosed with brain aneurysm and underwent clipping at [place]. No further information available. [facility], [facility] Medical History Aortic stenosis Obesity Hypothyroid Fatty liver History of Ennis's esophagus GERD (gastroesophageal reflux disease) Elevated cholesterol HTN (hypertension) Surgical History Hx of brain surgery History of esophagogastroduodenoscopy (EGD) Hx of colonoscopy History of Yan fundoplication Family History Father Heart problem Social History Household Members: None Housing: House Do you presently have visiting nurse or other home services: No Alcohol intake: current Alcohol intake frequency: holidays/special occasions only Patient Tobacco Use Status: Former Tobacco user Tobacco use type: Cigarette Second Hand Smoke Exposure: No service: No Review of Systems Const Denies chills, Denies fatigue, Denies fever(s), Denies frequent falls, Denies weakness, Denies weight gain and Denies weight loss ENT Denies dizziness Card Denies chest pain, Denies leg edema, Denies lightheadedness, Denies palpitations, Denies dyspnea and Denies dyspnea on exertion Resp Denies cough, Denies dyspnea and Denies dyspnea on exertion GI Denies hematochezia Musc Denies abnormal gait, Denies muscle weakness, Denies numbness, Denies radiating pain into limb and Denies tingling Neuro Denies abnormal gait, Denies dizziness, Denies frequent falls, Denies numbness, Denies tingling and Denies weakness Endo Denies fatigue and Denies palpitations Physical Exam Vital Signs: Last Vital Signs Pulse 93 07/23/24 11:14 BP 100/52 L 07/23/24 11:14 BMI result Body Mass Index 29.3 Const General: comfortable and no acute distress Orientation/consciousness: patient oriented x3 HEENT Other: Unremarkable Head: Yes normal to inspection Neck Neck: Yes normal visual inspection Chest Chest palpation & inspection: normal inspection of the chest Resp Auscultation: clear to auscultation bilaterally Cardio Palpation: normal PMI Heart sounds: S1 normal heart sound present, S2 abnormal, no gallops, Murmur heart sound present systolic III/ and at the right sternal border and no rubs GI Palpation (GI): Soft to palpation Back/Spine/Pelvis Other: unremarkable Skin General skin exam: no rashes or lesions noted Neuro General: patient oriented x3 Extrem General: Yes normal to inspection Psych Mental Status: mental status grossly normal Assessment & Plan Assessment & Plan (1) Non-rheumatic aortic stenosis: Code(s): I35.0 - Nonrheumatic aortic (valve) stenosis Category: Medical Plan: In the recent echocardiogram, preserved LVEF at 60-65%. Mean gradient across aortic valve of 44 mm Hg with calculated valve area of 0.8 cm2. TAVR assessment already in progress and she is awaiting cardiac surgery appointment. (2) Mitral annular calcification: Code(s): I34.81 - Nonrheumatic mitral (valve) annulus calcification Category: Medical Plan: Severe mitral annular calcification on the echocardiogram. To be followed for any progressive valvular dysfunction. (3) Thrombocytopenia: Code(s): D69.6 - Thrombocytopenia, unspecified Category: Medical Plan: Seems to have a low platelet history. We will request Hematology consultation prior to TAVR. Orders: Referrals Hematology & Oncology Referral D69.6 - Thrombocytopenia, unspecified Coding Level of Care Code Est Pt Level 4 (30160) Complex EM visit Add On G2211 Diagnoses Non-rheumatic aortic stenosis I35.0 Mitral annular calcification I34.81 Thrombocytopenia D69.6
[2024-07-23 11:14] VITALS: BP 100/52; PULSE 93; BMI 29.3
--- OUTSIDE RECORDS SUMMARY | 2024-07-23 12:54 | XMS_ITS ---
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 Generated for Suzanne caraballo/Ligia/eTransmitting on:?07/23/2024 12:53 PM EST
--- OUTSIDE RECORDS SUMMARY | 2024-07-23 12:54 | XMS_ITS ---
Author Organization [facility] Address [address] [place] [address] Care Team Providers Care Immigration Case Worker Name Role Phone Christian Lewis MD Primary Care Provider Gilberto Hollingsworth [phone] REASON FOR VISIT refill of script Encounters Encounter Location Date Provider Diagnosis [facility] [address] [place] [address] 07/21/2024 Gilberto Hernandez Plan Of Treatment Next Appt Details Provider Name:Gilberto Hernandez , 02/02/2025 09:50:00 AM, [address], [address], [place], [address], Progress Notes * TRENT RODRIGUEZ SDOB:1945 (79 yo F)Acc No.[id number]:07/21/2024 Patient:?TRENT RODRIGUEZ :1945???Age:79 Y???Sex:Female Address:[address] [facility] [place] [place] [address] * * Date:?
--- OUTSIDE RECORDS SUMMARY | 2024-07-23 12:54 | XMS_ITS ---
Author Organization [facility] Address [address] [place] [address] Care Team Providers Care Felt Hooker Name Role Phone Christian Lewis MD Primary Care Provider Maite Mayfield [phone] REASON FOR VISIT CAR SUPPLIER cx same day- car trouble Encounters Encounter Location Date Provider Diagnosis [facility] [address] [place] [address] 07/24/2023 Maite Cedeno Plan Of Treatment No Information Progress Notes * Mary Lou CELESTIN SDOB:1945 (78 yo F)Acc No.[id number]:07/24/2023 Patient:?Mary Lou Celestin :1945???Age:78 Y???Sex:Female Address:[address] [facility] [place], [address] * true * Date:? Generated for Printi rashmi/Ligia/eTransmitting on:?07/23/2024 12:54 PM EST
--- OUTSIDE RECORDS SUMMARY | 2024-07-23 12:54 | XMS_ITS ---
Author Organization Christian Lewis MD Address [address] [place], [place] [address] Care Team Providers Care Commercial Shrimping Captain Name Role Phone Christian Lewis Primary Care Provider [phone] Results Component Value Reference Range Notes Complete Blood Count Auto Di ff Reviewed date:07/17/2024 12:39:24 PM Interpretation: Performing Lab:[facility], [address] [place] [phone] Notes/Report: White Blood Count 3.5 4.8-10.8 X10*3/uL [...] Location Date Provider Diagnosis Christian Lewis MD [address] [place] [phone] 07/17/2024 Christian Lewis Gastrointestinal hemorrhage associated with duodenitis K29.81 Assessments Encounter Date Diagnosis (ICD Code) Assessment Notes Treatment Notes Treatment Clinical Notes Section Notes 07/17/2024 Gastrointestinal hemorrhage associated with duodenitis (ICD-10 - K29.81) Plan Of Treatment Next Appt Details Provider Name:Christian taylor, 07/24/2024 07:30:00 AM, [address] [place] [address], [phone], Provider Name:Christian taylor, 11/27/2024 07:15:00 AM, [address] [place] [address], [phone], Provider Name:Christian taylor, 12/04/2024 09:30:00 AM, [address] [place] [address], [phone], Progress Notes * Mary Lou CELESTIN SDOB:1945 (79 yo F)Acc No.[id number]:07/17/2024 Progress Note Patient:?Mary Lou CELESTIN Provider:?Christian Lewis MD :1945???Age:79 Y???Sex:Female D ate:07/17/2024 Address:[address] [place] [address] [facility] Subjective: * Chief Complaints: * ???1. CBC. * Medical History:? Objective: * Vitals:? Assessment: * Assessment: 1.?Gastrointestinal hemorrha ge associated with duodenitis - K29.81 (Primary)??? Plan: * Treatment: * Procedure Codes:?80621 VENIP UNCT, ROUTINE* * * The named appointment provid er may or may not be the originator of this progress note, and it is not deemed complete until electronically signed by the appointment provider. Sign off status: Pending * Provider:?Christian Lewis MD Date:?0 07/17/2024 Generated for Suzanne caraballo/Ligia/Lexitting on:?07/23/2024 12:54 PM EST
--- OUTSIDE RECORDS SUMMARY | 2024-07-23 12:54 | XMS_ITS | Patient Health Record ---
Author Organization [facility] Address [address] [place] [address] Care Team Providers Care Utility Worker Film Processing Name Role Phone Christian Lewis MD Primary Care Provider Maite Mayfield Unavailable [phone] Allergies No Known Allergies Reason For Referral [...] Location Date Provider Diagnosis [facility] [address] [place] [address] 07/24/2023 Maite Cedeno Ingrown nail L60.[address] [place] [address] 07/24/2023 Maite Cedeno Assessments Encounter Date Diagnosis (ICD Code) Assessment Notes Treatment Notes Treatment Clinical Notes Section Notes 07/24/2023 Ingrown nail (ICD-10 - L60.0) Plan Of Treatment No Information Insurance Providers Payer Name Payer Address Payer Phone Subscriber Number Group Number Insured Name Patient Relationship to Insured Coverage Start Date Coverage End Date [employer] [place] Medicare Advantage [facility] [address] [facility] [facility] [place] [id number] Mary Lou Celestin Self - patient is the insured Medical (General) History Medical History History ICD Code High blood pressure Scarlet fever thyroid Chicken pox Surgical History Surgery Date(Month/Year) hysterectomy 1985 knee surgery, left shoulder surgery right stomach surgery 1995 brain aneurysm 2007 colonoscopy 05/29/23
--- OUTSIDE RECORDS SUMMARY | 2024-07-23 12:54 | XMS_ITS ---
Author Organization [facility] Address [address] [place] [address] Care Team Providers Care Compliance Representative Name Role Phone Joshua KNIGHT, Christian Primary Care Provider Gilberto Hollingsworth [phone] Allergies Allergen (clinical drug ingredient) Drug/Non Drug Allergy documented on EMR Reaction Allergy Type Onset Date Status Lisinopril cough Drug Allergy Active Results Component Value Reference Range Notes Ferritin Reviewed date:07/05/2024 03:39:42 PM Interpretation: Performing Lab:[facility], [address] [place] [phone] Notes/Report: Ferritin 41 10-250 ng/mL REASON FOR VISIT Patient presents today for barretts, elevated LFTs Medications Medication SIG (Take, Route, Frequency, Duration) [...] 40 MG TAKE 1 CAPSULE BY [facility] TWICE A DAY for 90 Active Ursodiol 500 MG TAKE 2 TABLETS BY [facility] EVERY MORNING AND TAKE 1 TABLET BY [...] A DAY Oral for 4 Days Active Social History Tobacco Use: Social History Observation Description Date Details (start date - stop date) Former Smoker NA - NA Tobacco Use/Smoking Question Answer Notes Patient is a former smoker How long has it been since you last smoked? > 10 years Section Notes: Nonsmoker; no sig. 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 Vital Signs Temperature 96.9 degrees Fahrenheit 07/01/19 25 Blood pressure systolic 001 mm Hg 07/01/19 25 Blood pressure diastolic 01 mm Hg 025 Height 65.25 in 07/01/2024 Weight 192 lbs 07/01/2024 BMI 31.7 kg/m2 07/01/2024 Encounters Encounter Location Date Provider Diagnosis [facility] [address] [place] [address] 07/01/2024 Gilberto Hernandez Barretts esophagus without dysplasia K22.70 ; Fatty liver K76.0 ; Iron deficiency anemia, unspecified iron deficiency anemia type D50.9 ; Other cirrhosis of liver K74.69 and Duodenal adenoma D13.2 Assessments Encounter Date Diagnosis (ICD Code) Assessment Notes Treatment Notes Treatment Clinical Notes Section Notes 07/01/2024 Barretts esophagus without dysplasia (ICD-10 [...] K74.69) 07/01/2024 Duodenal adenoma (ICD-10 - D13.2) Plan Of Treatment Treatment Notes Assessment Notes Iron deficiency anemia, [...] comp Next Appt Details Follow Up: 2024, Reaso n: Provider Name:Gilberto Hernandez , 02/02/2025 09:50:00 AM, [address] [place] [address], [address], [place], [address], Progress Notes * TRENT RODRIGUEZ SDOB:1945 (79 yo F)Acc No.[id number]:07/01/2024 Progress Notes Patient:?TRENT RODRIGUEZ Provider:?Gilberto Hernandez MD :1945???Age:78 Y???Sex:Female D ate:07/01/2024 Address:[address] [place], [place] [id number] Pcp:Christian Lewis MD Subjective: * Chief Complaints: * ???1. Patient presents today for barretts, elevated LFTs. * Medical History:?GERD with B arrett's esophagus-areas of high and low grade dysplasia seen in fall-has been going [place] [facility] and Dr. Ferrer for ablation Rx of the Ennis's-most recent Rx was 01/2012-biopsies in 11/2011 showed the Ennis's, but no dysplasia, Hypothyroidism, HTN, Hyperlipidemia, Tubular adenomas removed from colon in 2005 and 2011, Denies [place],DM,CVA,Lung disease,renal disease, Brain aneurysm with Agram and clipping in 12/2007, Duodenal tubular adenoma removed in 2009., Most recent EGD in [place] was in 09/2012--Bx from 35 to 27 cm all neg for Ennis's esophagus nor dysplasia-same HH noted, E[place] 04[place]2013 with [place] [facility]--small areas of Ennis's mucosa, but no dysplasia noted, EGD in 04/2014 showed her known hiatal hernia and a small area of Ennis's esophagus, but no dysplasia, Slight elevation of the liver enzymes--- a liver ultrasound was consistent with fatty liver., Urinary incontinence- mild, Colonoscopy 10/2016 small tubular adenomas removed, EGD in 10/2016--small area of Ennis's with low grade dysplasia and hiatal hernia,, EGD in 04/2018 with HH, small area of Ennis's but no dysplasia; probable portal gastropathy, Fatty liver and cirrhosis--negative liver w/u in 03/2018--she has had some thrombocytopenia and mild splenomegaly. Liver bx in 07/2018 with fatty liver and some fibrosis but no cirrhosis--started Ursodiol in 07/3018; MRI in October of 2019 revealed evidence of some cirrhosis but no liver mass, EGD in 04/2019 revealed similar findings to the one in April 2018--biopsies were again negative for dysplasia within the small area of Ennis's mucosa. There was some portal gastropathy, but no varices., EGD 04/2020 revealed the known small area of Ennis's esophagus with biopsies negative for dysplasia. There was no esophagitis, Iron deficiency anemia 2020 with GI workup below, EGD 04/2021-duodenitis with biopsies negative for celiac disease, gastritis with biopsies negative for H. pylori, friable gastric polyp, known hiatal hernia and small area of Ennis's esophagus but no esophagitis, Colonoscopy 04/2021 with multiple tubular adenomas and a serrated adenoma--there was a fairly large adenomatous polyp > 1 cm removed from the area of the ileocecal valve as well, Upper endoscopy in May of 2021 revealed her known hiatal hernia and small area of Ennis's esophagus but without dysplasia, esophagitis, nor varices, Colonoscopy in May of 2021 revealed some residual flat adenomatous tissue in the ascending colon near the ileocecal valve that was removed. * Surgical History:?Yan fun doplication in 1995--Dr. Uribe , Knee surgery , Hysterectomy , Shoulder surgery , Cerebral aneursym clipping via interventional radiology . * Family History:?Father: dece ased, diagnosed with Heart disease.?Mother: .? Denies family hx. of colorectal cancer. No family history of liver cancer. * Social History:?Tobacco Use:?Tobacco Use/Smoking?Patient is a?former smoker,?How long has it been since you last smoked??> 10 years.?Drugs/Alcohol:?Alcohol Screen?Points: 1, Interpretation: Negative.?Miscellaneous:?Children: Her son, William, from head and neck cancer in 2019. Marital status: . Occupation: Retired. ???Nonsmoker; no sig. alcohol. * Medications:?Taking Iron (Fe rrous Sulfate) 325 (65 Fe) MG Tablet 1 tablet Orally Once a day , Taking Valsartan-hydroCHLOROthiazide 160-12.5 MG Tablet 1 tablet Orally Once a day , Taking Levothyroxine Sodium 100 MCG Tablet 1 tablet in the morning on an empty stomach Orally Once a day , Taking Atorvastatin Calcium 20 MG Tablet 1 tablet Orally Once a day , Taking Vitamin D 2000 UNIT Tablet 1 tablet Orally Once a day , Taking Ursodiol 500 MG Tablet TAKE 2 TABLETS BY MOUTH EVERY MORNING AND TAKE 1 TABLET BY MOUTH EVERY EVENING , Taking Omeprazole 40 MG Capsule Delayed Release TAKE 1 CAPSULE BY MOUTH TWICE A DAY , Taking Furosemide 20 MG Tablet TAKE 1 TABLET BY MOUTH EVERY DAY Oral , Taking Ferrous Sulfate 324 (65 Fe) MG Tablet Delayed Release TAKE 1 TABLET BY MOUTH EVERY DAY Oral , Taking Cyanocobalamin 1000 MCG/ML Solution PLEASE SEE ATTACHED FOR DETAILED DIRECTIONS Injection , Taking Cefuroxime Axetil 500 MG Tablet TAKE 1 TABLET BY MOUTH TWICE A DAY Oral * Allergies:?Lisinopril: cough . Objective: * Vitals:?Wt: 192 lbs, Ht: 65. 25 in, BMI: 31.7 Index, BP: 001/01 mm Hg, Temp: 96.9, Wt-k.09. Assessment: * Assessment: 1.?Barretts esophagus withou t dysplasia - K22.70 (Primary)???2.?Fatty liver - K76.0???3.?Iron deficiency anemia, unspecified iron deficiency anemia type - D50.9???4.?Other cirrhosis of liver - K74.69???5.?Duodenal adenoma - D13.2??? Plan: * Treatment: ? Value Reference Range ?Ferritin 41 10-250 - ng/mL ?Imaging: US abdomen comp w elastography* sched for 08/07/24 at 9:00 am [facility] ultrasound dept 2nd floor fasting 8 hrs prior * ?Imaging: US duplex arterial venous comp* Doppler of abdomen -- rule o ut portal vein thrombosissched for 08/10/24 at 8:30 [facility] ultrasound 2nd floor * 2.?Iron deficiency anemia, unspecified iron deficiency anemia type?LAB: IRON + IBC (FE) ?LAB: CBC w DIFF ?LAB: Ferritin (Collection Date & Time - 07/03/2024 07:31 AM)* ? Value Reference Range ?Ferritin 41 10-250 - ng/mL ?Imaging: US abdomen comp w elastography* sched for 08/07/24 at 9:00 am [facility] [place] dept 2nd floor fasting 8 hrs prior * ?Imaging: US duplex arterial venous comp* Doppler of abdomen -- rule o ut portal vein thrombosissched for 08/10/24 at 8:30 [facility] ultrasound 2nd floor * Notes: Start taking the oral Iron twice a day with a stool softener at least once every day. Increase the stool softener to twice a day if you're becoming more constipated on the Iron. Continue the B12 shots. We can always arrange for an Iron IV infusion if need be.??3.?Other cirrhosis of liver?LAB: IRON + IBC (FE) ?LAB: CBC w DIFF ?LAB: Ferritin (Collection Date & Time - 07/03/2024 07:31 AM)* ? Value Reference Range ?Ferritin 41 10-250 - ng/mL ?Imaging: US abdomen comp w elastography* sched for 08/07/24 at 9:00 am [facility] ultrasound dept 2nd floor fasting 8 hrs prior * ?Imaging: US duplex arterial venous comp* Doppler of abdomen -- rule o ut portal vein thrombosissched for 08/10/24 at 8:30 [facility] ultrasound 2nd floor * * Preventive Medicine:? ??Counseling:?Care goal follow-up plan:?Above Normal BMI Follow-up?Dietary management education, guidance, and counseling,?BMI management provided?Yes.? ??Urinary Incontinence:?Urinary Incontinence?Assessment:?Absent,?Plan of care documented:?No, reason not specified.? ??Screenings:?Fall Risk Screening?Fall Risk Assessment:?No falls in the past year,?Screening:?No falls in the past year,?Assessment:?Not performed, no reason specified,?Plan of Care:?Not documented, no reason specified.? * Follow Up:?Fall2024 * * The named appointment provid er may or may not be the originator of this progress note, and it is not deemed complete until electronically signed by the appointment provider. Sign off status: Pending * Provider:?Gilberto Hernandez MD Date:? 025 Generated for Suzanne caraballo/Ligia/Lexitting on:?07/23/2024 12:54 PM EST
--- OUTSIDE RECORDS SUMMARY | 2024-07-23 12:55 | XMS_ITS ---
Author Organization [facility] Address [address] [place] [address] Care Team Providers Care Ship Joiner Name Role Phone Christian Lewis MD Primary Care Provider Maite Mayfield Unavailable [phone] Allergies No Known Allergies REASON FOR VISIT [...] 07/24/2023 Encounters Encounter Location Date Provider Diagnosis [facility] [address] [place] [address] 07/24/2023 Maite Cedeno Ingrown nail L60.0 Assessments Encounter Date Diagnosis (ICD Code) Assessment Notes Treatment Notes Treatment Clinical Notes Section Notes 07/24/2023 Ingrown nail (ICD-10 - L60.0) Plan Of Treatment Next Appt Details Follow Up: prn, Reason: Progress Notes * Mary Lou CELESTIN SDOB:1945 (78 yo F)Acc No.[id number]:07/24/2023 Progress Notes Patient:?Mary Lou Celestin S Provider:?Maite Cedeno DPM :1945???Age:78 Y???Sex:Female D ate:07/24/2023 Address:[address] [facility] [place] [facility] Pcp:Christian Lewis MD Subjective: * Chief Complaints: [...] yes, walking. ?Marital status: . 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 * Medications:?TakingIron Melisa min D3 Ursodiol 500 [...] Cedeno DPM Date:?10/2023 Generated for Suzanne caraballo/Ligia/Jessicasmitting on:?07/23/2024 12:55 PM EST History and Physical Notes * [...]
--- OUTSIDE RECORDS SUMMARY | 2024-07-23 12:55 | XMS_ITS ---
Author Organization [facility] Address [address] [facility] [address] [place] [address] Care Team Providers Care Reheater Helper Name Role Phone Joshua KNIGHT, Christian Primary Care Provider Gilberto Hollingsworth Unavailable [phone] REASON FOR VISIT anemic, heme positive stool Encounters Encounter Location Date Provider Diagnosis [facility] [place] [address], [place] [phone] 06/25/2024 Gilberto Hernandez Plan Of Treatment Next Appt Details Provider Name:Gilberto Hernandez , 02/02/2025 09:50:00 AM, [address], [address], [place], [address], Progress Notes * TRENT RODRIGUEZ SDOB:1945 (79 yo F)Acc No.[id number]:06/25/2024 EGD/MAC Patient:?TRENT RODRIGUEZ Provider:?Gilberto Hernandez MD :1945???Age:78 Y???Sex:Female D ate:06/25/2024 Address:[address] [place], [place] [phone] Pcp:Christian Lewis MD Subjective: * Chief Complaints: * ???1. Anemic, heme positive stool. * Medical History:? Objective: * Vitals:? Assessment: Plan: * Treatment: * * The named appointment provid er may or may not be the originator of this progress note, and it is not deemed complete until electronically signed by the appointment provider. Sign off status: Pending * Provider:?Gilberto Hernandez MD Date:? 025 Generated for Printi ng/Fapercyg/eTransmitting on:?07/23/2024 12:54 PM EST
--- OUTSIDE RECORDS SUMMARY | 2024-07-23 12:55 | XMS_ITS | Clinical Summary ---
Author Organization [facility] Address [address] [place] [address] Care Team Providers Care Protection Engineer Name Role Phone Unavailable Primary Care Provider [...]
--- OUTSIDE RECORDS SUMMARY | 2024-07-23 12:55 | XMS_ITS ---
Author Organization Christian Lewis MD Address [address] [place], [place] [phone] Care Team Providers Care Guidance Director Name Role Phone Christian Lewis Primary Care Provider [phone] Allergies Allergen (clinical drug ingredient) Drug/Non Drug [...] Problem Status W/U Status Risk Notes Problem [id number] Severe aortic stenosis (I35.0) Active confirmed Vital Signs Blood pressure systolic 112 mm Hg 06/30/19 25 Blood pressure diastolic 60 mm Hg 025 Height 65.25 in 06/30/2024 Weight 190 lbs 06/30/2024 BMI 31.37 kg/m2 06/30/2024 Encounters Encounter Location Date Provider Diagnosis Christian Lewis MD [address] [place] [phone] 06/30/2024 Christian Lewis Gastrointestinal hemorrhage associated with [...] Details Provider Name:Christian taylor, 07/24/2024 07:30:00 AM, [address] [place] [address], [address] [place] [address], [phone], Provider Name:Christian taylor, 11/27/2024 07:15:00 AM, [address] [place] [address], [address] [place] [address], [phone], Provider Name:Christian taylor, 12/04/2024 09:30:00 AM, [address] [place] [address], [address] [place] [address], [phone], Progress Notes * Mary Lou CELESTIN SDOB:1945 (78 yo F)Acc No.[id number]:06/30/2024 Patient:?Mary Lou CELESTIN Provider:?Christian Lewis MD :1945???Age:78 Y???Sex:Female D ate:06/30/2024 Address:[address] [place] [address] Subjective: * Chief Complaints: * ???PH/TCM * [...] MD Date:?0 06/30/2024 Generated for Suzanne caraballo/Ligia/Lexitting on:?07/23/2024 12:55 PM EST History and Physical [...]
--- OUTSIDE RECORDS SUMMARY | 2024-07-23 12:56 | XMS_ITS ---
Author Organization Christian Lewis MD Address [address] [place], [place] [phone] Care Team Providers Care Hot Tamale Worker Name Role Phone Christian Lewis Primary Care Provider Results Component Value Reference Range Notes Complete Blood Count Auto Di ff Reviewed date:07/03/2024 12:47:18 PM Interpretation: Performing Lab:[facility], [address] [place] [phone] Notes/Report: White Blood Count 3.5 4.8-10.8 X10*3/uL [...] CBC Encounters Encounter Location Date Provider Diagnosis Chritsian Lewis MD [address] [place] [phone] 07/03/2024 Christian Lewis Lymphocytosis D72.82 0 Assessments Encounter Date Diagnosis (ICD Code) Assessment Notes Treatment Notes Treatment Clinical Notes Section Notes 07/03/2024 Lymphocytosis (ICD-10 - D72.820) Plan Of Treatment Next Appt Details Provider Name:Christian taylor, 07/24/2024 07:30:00 AM, [address] [place] [address], [phone], Provider Name:Christian taylor, 11/27/2024 07:15:00 AM, [address] [place] [address], [phone], Provider Name:Christian taylor, 12/04/2024 09:30:00 AM, [address] [place] [address], [phone], Progress Notes * Mary Lou CELESTIN SDOB:1945 (79 yo F)Acc No.[id number]:07/03/2024 Progress Note Patient:?Mary Lou CELESTIN Provider:?Christian Lewis MD :1945???Age:78 Y???Sex:Female D ate:07/03/2024 Address:[address] [place] [address] [address]son dias [id number] Subjective: * Chief Complaints: * ???1. CBC. [...] MD Date:?0 07/03/2024 Generated for Suzanne caraballo/Ligia/Lexitting on:?07/23/2024 12:55 PM EST
== END 2024-07-23 13:24 | disposition home or self-care (01) ==
PROVIDERS: PCP Internal Medicine; Visit Provider Internal Medicine
DX: I35.0 Nonrheumatic aortic (valve) stenosis (principal); I34.81 Nonrheumatic mitral (valve) annulus calcification; D69.6 Thrombocytopenia, unspecified
CPT/HCPCS: 99214; G2211

== ENCOUNTER → 2024-07-23 10:44 | Outpatient (BNVA) | payer MEDICARE, SELFPAY | PROVIDERS: PCP Internal Medicine; Visit Provider Internal Medicine | DX: I35.0 Nonrheumatic aortic (valve) stenosis (principal); I34.81 Nonrheumatic mitral (valve) annulus calcification; D69.6 Thrombocytopenia, unspecified | CPT/HCPCS: 99212 ==

== ENCOUNTER 2024-07-24 10:09 | Outpatient (REF) | payer MEDICARE, SELFPAY ==
[2024-07-24 11:04] LABS: Appearance Urine Clear; Color Urine Yellow; Glucose Urine UA Negative (Negative); Leukocyte Esterase Urine Small (1+) (Negative); Nitrite Urine Negative (Negative); Specific Gravity - Urine 1.015 (1.005-1.025); UMIC TRIGGER UACC YES; Urine Blood Negative (Negative); Urine Ketones Negative (Negative); Urine Protein Negative (Neg-Trace)
[2024-07-24 11:12] LABS: Bacteria Urine None Seen (None Seen); Hyaline Casts Urine 0-2 /LPF (0-2); RBC Urine 0-2 /HPF (0-2); UACC Culture Trigger YES
--- OUTSIDE RECORDS SUMMARY | 2024-07-24 11:22 | XMS_ITS | Patient Health Record ---
Author Organization [facility] Address [address] [facility] [place] [address] Care Team Providers Care Professor Of Rhetoric Name Role Phone Christian Lewis MD Primary Care Provider Maite Mayfield Unavailable [phone] Allergies No Known Allergies Reason For Referral [...] Are you an other tobacco user? No Plan Of Treatment No Information Insurance Providers Payer Name Payer Address Payer Phone Subscriber Number Group Number Insured Name Patient Relationship to Insured Coverage Start Date Coverage End Date [employer] [place] Medicare Advantage [address] [facility] [id number] Mary Lou Celestin Self - patient is the insured Medical (General) History Medical History History ICD Code High blood pressure Scarlet fever thyroid Chicken pox Surgical History Surgery Date(Month/Year) hysterectomy 1985 knee surgery, left shoulder surgery right stomach surgery 1995 brain aneurysm 2007 colonoscopy 05/29/23
--- OUTSIDE RECORDS SUMMARY | 2024-07-24 11:22 | XMS_ITS ---
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 Generated for Suzanne caraballo/Ligia/eTransmitting on:?07/24/2024 11:22 AM EST
--- OUTSIDE RECORDS SUMMARY | 2024-07-24 11:23 | XMS_ITS ---
Author Organization [facility] Address [address] [facility] [place] [address] Care Team Providers Care Youth Accommodation Support Worker Name Role Phone Christian Lewis MD Primary Care Provider Maite Mayfield Unavailable [phone] Allergies No Known Allergies REASON FOR VISIT [...] 07/24/2023 Encounters Encounter Location Date Provider Diagnosis [facility] [address] [place] [address] 07/24/2023 Maite eCdeno Ingrown nail L60.0 Assessments Encounter Date Diagnosis (ICD Code) Assessment Notes Treatment Notes Treatment Clinical Notes Section Notes 07/24/2023 Ingrown nail (ICD-10 - L60.0) Plan Of Treatment Next Appt Details Follow Up: prn, Reason: Progress Notes * Mary Lou CELESTIN SDOB:1945 (78 yo F)Acc No.[id number]:07/24/2023 Progress Notes Patient:?Mary Lou Celestin S Provider:?Maite Cedeno DPM :1945???Age:78 Y???Sex:Female D ate:07/24/2023 Address:[address] [facility] [place] [id number] Pcp:Christian Lewis MD Subjective: * Chief Complaints: [...] yes, walking. ?Marital status: . 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 * Medications:?TakingIron Melisa min D3 Ursodiol 500 [...] Cedeno DPM Date:?10/2023 Generated for Suzanne caraballo/Ligia/Isaacransmitting on:?07/24/2024 11:23 AM EST History and Physical Notes * [...]
--- OUTSIDE RECORDS SUMMARY | 2024-07-24 11:23 | XMS_ITS ---
Author Organization Christian Lewis MD Address [address] [place], [place] [phone] Care Team Providers Care Siebel Developer Name Role Phone Christian Lewis Primary Care Provider Results Component Value Reference Range Notes Complete Blood Count Auto Di ff Reviewed date:07/17/2024 12:39:24 PM Interpretation: Performing Lab:[facility], [address] [place] [phone] Notes/Report: White Blood Count 3.5 4.8-10.8 X10*3/uL [...] Location Date Provider Diagnosis Christian Lewis MD [address] [place] [id number] 07/17/2024 Christian Lewis Gastrointestinal hemorrhage associated with duodenitis K29.81 Assessments Encounter Date Diagnosis (ICD Code) Assessment Notes Treatment Notes Treatment Clinical Notes Section Notes 07/17/2024 Gastrointestinal hemorrhage associated with duodenitis (ICD-10 - K29.81) Plan Of Treatment Next Appt Details Provider Name:Christian taylor, 11/27/2024 07:15:00 AM, [address] [place] [address], [address], [phone], Provider Name:Christian taylor, 12/04/2024 09:30:00 AM, [address] [place] [address], [address], [phone], Progress Notes * Mary Lou CELESTIN SDOB:1945 (79 yo F)Acc No.[id number]:07/17/2024 Progress Note Patient:?Mary Lou CELESTIN Provider:?Christian Lewis MD :1945???Age:79 Y???Sex:Female D ate:07/17/2024 Address:[address] [place] [address] [id number] Subjective: * Chief Complaints: * ???1. CBC. * Medical History:? Objective: * Vitals:? Assessment: * Assessment: 1.?Gastrointestinal hemorrha ge associated with duodenitis - K29.81 (Primary)??? Plan: * Treatment: * Procedure Codes:?56741 VENIP UNCT, ROUTINE* * * The named appointment provid er may or may not be the originator of this progress note, and it is not deemed complete until electronically signed by the appointment provider. Sign off status: Pending * Provider:?Christian Lewis MD Date:?0 07/17/2024 Generated for Suzanne caraballo/Ligia/Derek on:?07/24/2024 11:22 AM EST
--- OUTSIDE RECORDS SUMMARY | 2024-07-24 11:23 | XMS_ITS ---
Author Organization [facility] Address [address] [place] [address] Care Team Providers Care Rcp Name Role Phone Christian Lewis MD Primary Care Provider Gilberto Hollingsworth [phone] REASON FOR VISIT refill of script Encounters Encounter Location Date Provider Diagnosis [facility] [address] [place] [address] 07/21/2024 Gilberto Hernandez Plan Of Treatment Next Appt Details Provider Name:Gilberto Hernandez , 02/02/2025 09:50:00 AM, [address], [address], [place], [address], Progress Notes * TRENT RODRIGUEZ SDOB:1945 (79 yo F)Acc No.[id number]:07/21/2024 Patient:?TRENT RODRIGUEZ :1945???Age:79 Y???Sex:Female Address:[address] [facility] [place] [place] [address] * * Date:?
--- OUTSIDE RECORDS SUMMARY | 2024-07-24 11:23 | XMS_ITS ---
Author Organization [facility] Address [address] [place] [address] Care Team Providers Care Mental Health Professional Name Role Phone Joshua KNIGHT, Christian Primary Care Provider Gilberto Hollingsworth [phone] Allergies Allergen (clinical drug ingredient) Drug/Non Drug Allergy documented on EMR Reaction Allergy Type Onset Date Status Lisinopril cough Drug Allergy Active Results Component Value Reference Range Notes Ferritin Reviewed date:07/05/2024 03:39:42 PM Interpretation: Performing Lab:[facility], [address] [place] [phone] Notes/Report: Ferritin 41 10-250 ng/mL REASON FOR VISIT Patient presents today for barretts, elevated LFTs Medications Medication SIG (Take, Route, Frequency, Duration) Notes Start Date End Date Status Ferrous Sulfate 324 (65 Fe) MG TAKE 1 TABLET BY MOUTH EVERY DAY Oral for 30 Days Active Furosemide 20 MG TAKE 1 TABLET BY LAITA EVERY DAY Oral for 30 Days Active Cyanocobalamin 1000 MCG/ML PLEASE SEE AT TACHED FOR DETAILED DIRECTIONS Injection for 84 Days Active Omeprazole 40 MG TAKE 1 CAPSULE BY MO [facility] TWICE A DAY for 90 Active Ursodiol 500 MG TAKE 2 TABLETS BY MO 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 Vital Signs Temperature 96.9 degrees Fahrenheit 07/01/19 25 Blood pressure systolic 001 mm Hg 07/01/19 25 Blood pressure diastolic 01 mm Hg 025 Height 65.25 in 07/01/2024 Weight 192 lbs 07/01/2024 BMI 31.7 kg/m2 07/01/2024 Encounters Encounter Location Date Provider Diagnosis [facility] [address] [place] [address] 07/01/2024 Gilberto Hernandez Barretts esophagus without dysplasia [...] Provider Name:Gilberto Hernandez , 02/02/2025 09:50:00 AM, [address] [place] [address], [address], [place], [address], Progress Notes * TRENT RODRIGUEZ SDOB:1945 (79 yo F)Acc No.[id number]:07/01/2024 Progress Notes Patient:?TRENT RODRIGUEZ Provider:?Gilberto Hernandez MD :1945???Age:78 Y???Sex:Female D ate:07/01/2024 Address:[address] [place], [place] [phone] Pcp:Christian Lewis MD Subjective: * Chief Complaints: * ???1. Patient presents today for barretts, elevated LFTs. * Medical History:?GERD with B arrett's esophagus-areas of high and low grade dysplasia seen in fall-has been going to [facility] and Dr. Ferrer for ablation Rx of the Ennis's-most recent Rx was 01/2012-biopsies in 11/2011 showed the Ennis's, but no dysplasia, Hypothyroidism, HTN, Hyperlipidemia, Tubular adenomas removed from colon in 2005 and 2011, Denies [place],DM,CVA,Lung disease,renal disease, Brain aneurysm with Agram and clipping in 12/2007, Duodenal tubular adenoma removed in 2009., Most recent EGD in [place] was in 09/2012--Bx from 35 to 27 cm all neg for Ennis's esophagus nor dysplasia-same HH noted, EGD 04/2013 with me at [facility]--small areas of Ennis's mucosa, but no dysplasia [...] elastography* sched for 08/07/24 at 9:00 am [facility] ultrasound dept 2nd floor fasting 8 hrs prior * ?Imaging: US duplex arterial venous comp* Doppler of abdomen -- rule o ut portal vein thrombosissched for 08/10/24 at 8:30 [facility] ultrasound 2nd floor * 2.?Iron deficiency anemia, unspecified iron deficiency anemia type?LAB: IRON + IBC (FE) ?LAB: CBC w DIFF ?LAB: Ferritin (Collection Date & Time - 07/03/2024 07:31 AM)* ? Value Reference Range ?Ferritin 41 10-250 - ng/mL ?Imaging: US abdomen comp w elastography* sched for 08/07/24 at 9:00 am [facility] ultrasound dept 2nd floor fasting 8 hrs prior * ?Imaging: US duplex arterial venous comp* Doppler of abdomen -- rule o ut portal vein thrombosissched for 08/10/24 at 8:30 [facility] ultrasound 2nd floor * Notes: Start taking [...] elastography* sched for 08/07/24 at 9:00 am [facility] ultrasound dept 2nd floor fasting 8 hrs prior * ?Imaging: US duplex arterial venous comp* Doppler of abdomen -- rule o ut portal vein thrombosissched for 08/10/24 at 8:30 [facility] ultrasound 2nd floor * * Preventive Medicine:? [...] MD Date:? 025 Generated for Suzanne caraballo/Ligia/Lexitting on:?07/24/2024 11:22 AM EST
--- OUTSIDE RECORDS SUMMARY | 2024-07-24 11:23 | XMS_ITS ---
Author Organization Christian Lewis MD Address [address] [place], [place] [phone] Care Team Providers Care Echocardiography Tech Name Role Phone Christian Lewis Primary Care Provider Results Component Value Reference Range Notes Complete Blood Count Auto Di ff Reviewed date:07/03/2024 12:47:18 PM Interpretation: Performing Lab:[facility], [address] [place] [phone] Notes/Report: White Blood Count 3.5 4.8-10.8 X10*3/uL [...] Location Date Provider Diagnosis Christian Lewis MD [address] [place] [id number] 07/03/2024 Christian Lewis Lymphocytosis D72.82 0 Assessments Encounter Date Diagnosis (ICD Code) Assessment Notes Treatment Notes Treatment Clinical Notes Section Notes 07/03/2024 Lymphocytosis (ICD-10 - D72.820) Plan Of Treatment Next Appt Details Provider Name:Christian taylor, 11/27/2024 07:15:00 AM, [address] [place] [address], [address], [phone], Provider Name:Christian taylor, 12/04/2024 09:30:00 AM, [address] [place] [address], [address], [phone], Progress Notes * Mary Lou CELESTIN SDOB:1945 (79 yo F)Acc No.[id number]:07/03/2024 Progress Note Patient:?Mary Lou CELESTIN Provider:?Christian Lewis MD :1945???Age:78 Y???Sex:Female D ate:07/03/2024 Address:[address] [place], [place] [address] [place] Subjective: * Chief Complaints: * ???1. CBC. [...] Lewis MD Date:?0 07/03/2024 Generated for Suzanne caraballo/Ligia/Jessicasmitting on:?07/24/2024 11:23 AM EST
--- OUTSIDE RECORDS SUMMARY | 2024-07-24 11:23 | XMS_ITS | Clinical Summary ---
Author Organization [facility] Address [address] [place] [address] Care Team Providers Care Meeting Facilitator Name Role Phone Unavailable Primary Care Provider [...]
--- OUTSIDE RECORDS SUMMARY | 2024-07-24 11:23 | XMS_ITS ---
Author Organization [facility] Address [address] [facility] [address] [place] [address] Care Team Providers Care Science Education Professor Name Role Phone Joshua KNIGHT, Christian Primary Care Provider Gilberto Hollingsworth Unavailable [phone] REASON FOR VISIT anemic, heme positive stool Encounters Encounter Location Date Provider Diagnosis [facility] [address] [place], [place] [phone] 06/25/2024 Gilberto Hernandez Plan Of Treatment Next Appt Details Provider Name:Gilberto Hernandez , 02/02/2025 09:50:00 AM, [address], [address], [place], [address], Progress Notes * TRENT RODRIGUEZ SDOB:1945 (79 yo F)Acc No.[id number]:06/25/2024 EGD/MAC Patient:?TRENT RODRIGUEZ Provider:?Gilberto Hernandez MD :1945???Age:78 Y???Sex:Female D ate:06/25/2024 Address:[address] [place], [place] [phone] Pcp:Christian Lewis MD Subjective: * Chief Complaints: [...] MD Date:? 025 Generated for Printi ng/Fapercyg/eTransmitting on:?07/24/2024 11:23 AM EST
--- OUTSIDE RECORDS SUMMARY | 2024-07-24 11:23 | XMS_ITS ---
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 [address] [place] [address] 07/24/2023 Maite Cedeno Plan Of Treatment No Information Progress Notes * Mary Lou CELESTIN SDOB:1945 (78 yo F)Acc No.[id number]:07/24/2023 Patient:?Mary Lou Celestin :1945???Age:78 Y???Sex:Female Address:[address] [facility] [place], [address] * true * Date:? Generated for Printi rashmi/Ligia/eTransmitting on:?07/24/2024 11:22 AM EST
--- OUTSIDE RECORDS SUMMARY | 2024-07-24 11:24 | XMS_ITS ---
Author Organization Christian Lewis MD Address [address] [place] [phone] Care Team Providers Care Limousine Rental Clerk Name Role Phone Joshua Christian Primary Care Provider [phone] Results Component Value Reference Range Notes UA ClnCatch+Micro w/rflx Cul t (Not yet reviewed by provider) Interpretation: Performing Lab:[facility], [address] [place] [phone] Notes/Report: Urine, Clean Catch Color Urine Yellow Appearance Urine Clear PH 6.0 5.0-9.0 Glucose Urine UA Negative Negative mg/dL Urine Blood Negative Negative Specific [place] - Urine 1.015 1.005-1.025 Urine Protein Negative [...] Christian Lewis MD [address] [place], [place] [phone] 07/24/2024 Christian Bombardier Hematuria, unspecified type R31.9 Assessments Encounter Date Diagnosis (ICD Code) Assessment Notes Treatment Notes Treatment Clinical Notes Section Notes 07/24/2024 Hematuria, unspecified type (ICD-10 - R31.9) Plan Of Treatment Pending Test Test Name Order Date UA ClnCatch+Micro w/rflx Cult 07/24/2024 Next Appt Details Provider Name:Christian Martin ier, 11/27/2024 07:15:00 AM, [address] [facility], [address], [place], [place], [phone], Provider Name:Christian Martin ier, 12/04/2024 09:30:00 AM, [address] [facility], [address], [place], [place], [phone], Progress Notes * Mary Lou CELESTIN SDOB:1945 (79 yo F)Acc No.[id number]:07/24/2024 Progress Note Patient:?Mary Lou CELESTIN S Provider:?Christian Lewis MD :1945???Age:79 Y???Sex:Female D ate:07/24/2024 Address:[address] [place], [place] [phone] Subjective: * Chief Complaints: * ???1. repeat U/A in 1 month. * Medical History:? Objective: * Vitals:? Assessment: * Assessment: 1.?Hematuria, unspecified ty pe - R31.9??? Plan: * Treatment: * * The named appointment provid er may or may not be the originator of this progress note, and it is not deemed complete until electronically signed by the appointment provider. Sign off status: Pending * Provider:?Christian Lewis MD Date:?0 07/24/2024 Generated for Suzanne caraballo/Ligia/Lexitting on:?07/24/2024 11:23 AM EST
== END 2024-07-24 10:10 | disposition home or self-care (01) ==
LOC: HO.LNP 10:09
PROVIDERS: Visit Provider Internal Medicine
DX: R31.9 Hematuria, unspecified (principal)
CPT/HCPCS: 81001; 87086

== ENCOUNTER → 2024-07-27 13:43 | Outpatient (BNV) | payer MEDICARE, SELFPAY | PROVIDERS: PCP Internal Medicine; Referring Provider Internal Medicine; Visit Provider Internal Medicine | DX: D61.818 Other pancytopenia (principal) | CPT/HCPCS: 99204; G2211 ==

== ENCOUNTER 2024-08-01 07:12 | Outpatient (REF) | payer MEDICARE, SELFPAY ==
--- OUTSIDE RECORDS SUMMARY | 2024-08-01 07:15 | XMS_ITS | Clinical Summary ---
Author Organization [facility] Address [address] [place] [address] Care Team Providers Care Group Activities Aide Name Role Phone Unavailable Primary Care Provider [...]
--- OUTSIDE RECORDS SUMMARY | 2024-08-01 07:15 | XMS_ITS ---
Author Organization Christian Lewis MD Address [address] [place], [place] [phone] Care Team Providers Care Statistical Modeler Name Role Phone hCristian Lewis Primary Care Provider Results Component Value Reference Range Notes Complete Blood Count Auto Di ff Reviewed date:07/17/2024 12:39:24 PM Interpretation: Performing Lab:[facility], [address] [place] [phone] Notes/Report: White Blood Count 3.5 4.8-10.8 X10*3/uL [...] Location Date Provider Diagnosis Christian Lewis MD [address] [place] [phone] 07/17/2024 Christian Lewis Gastrointestinal hemorrhage associated with duodenitis K29.81 Assessments Encounter Date Diagnosis (ICD Code) Assessment Notes Treatment Notes Treatment Clinical Notes Section Notes 07/17/2024 Gastrointestinal hemorrhage associated with duodenitis (ICD-10 - K29.81) Plan Of Treatment Next Appt Details Provider Name:Christian taylor, 11/27/2024 07:15:00 AM, [address] [place] [address], [address], [phone], Provider Name:Christian taylor, 12/04/2024 09:30:00 AM, [address] [place] [address], [address], [phone], Progress Notes * Mary Lou CELESTIN SDOB:1945 (79 yo F)Acc No.[id number]:07/17/2024 Progress Note Patient:?Mary Lou CELESTIN Provider:?Christian Lewis MD :1945???Age:79 Y???Sex:Female D ate:07/17/2024 Address:[address] [place] [address] [id number] Subjective: * Chief Complaints: * ???1. CBC. * Medical History:? Objective: * Vitals:? Assessment: * Assessment: 1.?Gastrointestinal hemorrha ge associated with duodenitis - K29.81 (Primary)??? Plan: * Treatment: * Procedure Codes:?35752 VENIP UNCT, ROUTINE* * * The named appointment provid er may or may not be the originator of this progress note, and it is not deemed complete until electronically signed by the appointment provider. Sign off status: Pending * Provider:?Christian Lewis MD Date:?0 07/17/2024 Generated for Suzanne caraballo/Ligia/Derek on:?08/01/2024 07:14 AM EDT
--- OUTSIDE RECORDS SUMMARY | 2024-08-01 07:15 | XMS_ITS | Patient Health Record ---
Author Organization [facility] Address [address] [facility] [place] [address] Care Team Providers Care Merchant Tailor Name Role Phone Christian Lewis MD Primary Care Provider Maite Mayfield Unavailable [phone] Allergies No Known Allergies Reason For Referral [...] Date [employer] [place] Medicare Advantage [address] [facility] [phone] Mary Lou Celestin Self - patient is the insured Medical (General) History Medical History History ICD Code High blood pressure Scarlet fever thyroid Chicken pox Surgical History Surgery Date(Month/Year) hysterectomy 1985 knee surgery, left shoulder surgery right stomach surgery 1995 brain aneurysm 2007 colonoscopy 05/29/23
--- OUTSIDE RECORDS SUMMARY | 2024-08-01 07:15 | XMS_ITS ---
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 Generated for Susani rashmi/Ligia/eTransmitting on:?08/01/2024 07:14 AM EDT
--- OUTSIDE RECORDS SUMMARY | 2024-08-01 07:15 | XMS_ITS ---
Author Organization [facility] Address [address] [place] [address] Care Team Providers Care Intensive Care Unit Registered Nurse Name Role Phone Joshua KNIGHT, Christian Primary Care Provider Gilberto Hollingsworth [phone] Allergies Allergen (clinical drug ingredient) Drug/Non Drug Allergy documented on EMR Reaction Allergy Type Onset Date Status lisinopril Lisinopril cough Drug Allergy Activ e Results Component Value Reference Range Notes Ferritin Reviewed date:07/05/2024 03:39:42 PM Interpretation: Performing Lab:[facility], [address] [place] [phone] Notes/Report: Ferritin 41 10-250 ng/mL REASON FOR [...] 40 MG TAKE 1 CAPSULE BY MO [facility] TWICE A DAY for 90 Active Ursodiol [...] Notes Problem Benign neoplasm of small intestine (57476474) 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 Vital Signs Temperature 96.9 degrees Fahrenheit 07/01/19 25 Blood pressure systolic 001 mm Hg 07/01/19 25 Blood pressure diastolic 01 mm Hg 025 Height 65.25 in 07/01/2024 Weight 192 lbs 07/01/2024 BMI 31.7 kg/m2 07/01/2024 Encounters Encounter Location Date Provider Diagnosis [facility] [address] [place] [address] 07/01/2024 Gilberto Mary Barretts esophagus without dysplasia [...] Name:Gilberto Hernandez , 02/02/2025 09:50:00 AM, [address] [facility], [address], [place], [address], Progress Notes * TRENT RODRIGUEZ SDOB:1945 (79 yo F)Acc No.[id number]:07/01/2024 Progress Notes Patient:?TRENT RODRIGUEZ Provider:?Gilberto Hernandez MD :1945???Age:78 Y???Sex:Female D ate:07/01/2024 Address:[address] [place], [place] [phone] Pcp:Christian Lewis MD Subjective: * Chief Complaints: * ???1. Patient presents today for barretts, elevated LFTs. * Medical History:?GERD with B arrett's esophagus-areas of high and low grade dysplasia seen in fall-has been going [place] [facility] and Dr. Ferrer for ablation Rx of the Ennis's-most recent Rx was 01/2012-biopsies in 11/2011 showed the Ennis's, but no dysplasia, Hypothyroidism, HTN, Hyperlipidemia, Tubular adenomas removed from colon in 2005 and 2011, Denies [place],DM,CVA,Lung disease,renal disease, Brain aneurysm with Agram and clipping in 12/2007, Duodenal tubular adenoma removed in 2009., Most recent EGD in [place] was in 09/2012--Bx from 35 to 27 cm all neg for Ennis's esophagus nor dysplasia-same HH noted, EGD 04/2013 with [place] [facility]--small areas of Ennis's mucosa, but no dysplasia [...] elastography* sched for 08/07/24 at 9:00 am [facility] ultrasound dept 2nd floor fasting 8 hrs prior * ?Imaging: US duplex arterial venous comp* Doppler of abdomen -- rule o ut portal vein thrombosissched for 08/10/24 at 8:30 [facility] ultrasound 2nd floor * 2.?Iron deficiency anemia, unspecified iron deficiency anemia type?LAB: IRON + IBC (FE) ?LAB: CBC w DIFF ?LAB: Ferritin (Collection Date & Time - 07/03/2024 07:31 AM)* ? Value Reference Range ?Ferritin 41 10-250 - ng/mL ?Imaging: US abdomen comp w elastography* sched for 08/07/24 at 9:00 am [facility] ultrasound dept 2nd floor fasting 8 hrs prior * ?Imaging: US duplex arterial venous comp* Doppler of abdomen -- rule o ut portal vein thrombosissched for 08/10/24 at 8:30 [facility] ultrasound 2nd floor * Notes: Start taking [...] elastography* sched for 08/07/24 at 9:00 am [facility] ultrasound dept 2nd floor fasting 8 hrs prior * ?Imaging: US duplex arterial venous comp* Doppler of abdomen -- rule o ut portal vein thrombosissched for 08/10/24 at 8:30 [facility] ultrasound 2nd floor * * Preventive Medicine:? ??Counseling:?Care goal follow-up plan:?Above Normal BMI Follow-up?Dietary management education, guidance, and counseling,?BMI management provided?Yes.? ??Urinary Incontinence:?Urinary Incontinence?Assessment:?Absent,?Plan of care documented:?No, reason not specified.? ??Screenings:?Fall Risk Screening?Fall Risk Assessment:?No falls in the past year,?Screening:?No falls in the past year,?Assessment:?Not performed, no reason specified,?Plan of Care:?Not documented, no reason specified.? * Follow Up:?2024 * * The named appointment provid er may or may not be the originator of this progress note, and it is not deemed complete until electronically signed by the appointment provider. Sign off status: Pending * Provider:?Gilberto Hernandez MD Date:? 025 Generated for Suzanne caraballo/Ligia/Derek on:?08/01/2024 07:15 AM EDT
--- OUTSIDE RECORDS SUMMARY | 2024-08-01 07:16 | XMS_ITS | Continuity of Care Document ---
Author Organization [facility] Michael vishnu Address [address] [place] [address] [place] [address]- Care Team Providers Care Green Building Architect Name Role Phone Christian Lewis MD Primary Care Physician [phone] Encounter [facility] Date(s): 06/29/24 - 07/29/24 [facility] [address] [place] [address] Drive [address] [place] [address]- Encounter Type: Triage Allergies, Adverse Reactions, Alerts No Known Allergies Medications Diovan 160 mg oral tablet 1 tablet = 160 mg, By Mouth, Daily, 0 Refills, Maintenance, 06/03/12 9:18:30 AM EST Start Date: 06/03/12 Status: Ordered Repeat number: 1 esomeprazole 40 mg oral enteric coated capsule 1 capsule = 40 mg, By Mouth, Daily, 0 Refills, Maintenance, 06/03/12 9:18:46 AM EST Start Date: 06/03/12 Status: Ordered Repeat number: 1 Levothyroxine = 100 mcg, By Mouth, Daily, 0 Refills, Maintenance, 06/03/12 9:15:22 AM EST Start Date: 06/03/12 Status: Ordered Repeat number: 1 Lipitor 20 mg oral tablet 1 tablet = 20 mg, By Mouth, Daily at bedtime, 0 Refills, Maintenance, 06/03/12 9:19:01 AM EST Start Date: 06/03/12 Status: Ordered Repeat number: 1 Vitamin D3 By Mouth, 0 Refills, Maintenance, 09/07/16 3:52:01 PM EDT Start Date: 09/07/16 Status: Ordered Repeat number: 1 Problem List Condition Confirmation Course Effective Dates Status Health St atus Informant Aneurysm Confirmed Active Social History Social History Type Response Smoking Status Former smoker entered on: 09/02/15 Sex Sex Representation Female (finding) Patient Care team information Care Team Personnel Name: Christian Lewis MD Position: Reference Physician Member Role: PCP Address: [address] [place] [address] Christian Lewis [place], [place] [address] Telecom: [phone] Care Team Related Persons Name: AMOR ROSENBERG Name: ANNE GREEN Insurance Providers Guarantor name: [facility] [email or web address] Plan Information #: 1 Payer: [employer] H[employer] Member Number: NA Policy Number: NA Group Number: NA
--- OUTSIDE RECORDS SUMMARY | 2024-08-01 07:16 | XMS_ITS ---
Author Organization [facility] Address [address] [facility] [place] [address] Care Team Providers Care Black Leather Buffer Name Role Phone Christian Lewis MD Primary Care Provider Maite Mayfield Unavailable [phone] Allergies No Known Allergies REASON FOR VISIT [...] Diagnosis [facility] [address] [place] [address] 07/24/2023 Maite Cedeno Ingrown nail L60.0 Assessments Encounter Date Diagnosis (ICD Code) Assessment Notes Treatment Notes Treatment Clinical Notes Section Notes 07/24/2023 Ingrown nail (ICD-10 - L60.0) Plan Of Treatment Next Appt Details Follow Up: prn, Reason: Progress Notes * Mary Lou CELESTIN SDOB:1945 (78 yo F)Acc No.[id number]:07/24/2023 Progress Notes Patient:?Mary Lou Celestin S Provider:?Maite Cedeno DPM :1945???Age:78 Y???Sex:Female D ate:07/24/2023 Address:[address] [facility] [place] [facility] Pcp:Christian Lewis MD Subjective: * Chief Complaints: [...] yes, walking. ?Marital status: . 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 * Medications:?TakingIron Melisa min D3 Ursodiol 500 [...] Cedeno DPM Date:?10/2023 Generated for Suzanne caraballo/Ligia/Jessicasmitting on:?08/01/2024 07:15 AM EDT History and Physical Notes * HPI (History [...]
--- OUTSIDE RECORDS SUMMARY | 2024-08-01 07:16 | XMS_ITS ---
Author Organization [facility] Address [address] [facility] [address] [place] [address] Care Team Providers Care Abstract Checker Name Role Phone Joshua KNIGHT, Christian Primary Care Provider Gilberto Hollingsworth Unavailable [phone] REASON FOR VISIT anemic, heme positive stool Encounters Encounter Location Date Provider Diagnosis [facility] Inpatient [address] [place], [place] [phone] 06/25/2024 Gilberto Hernandez Plan Of Treatment Next Appt Details Provider Name:Gilberto Hernandez , 02/02/2025 09:50:00 AM, [address], [address], [place], [address], Progress Notes * TRENT RODRIGUEZ SDOB:1945 (79 yo F)Acc No.[id number]:06/25/2024 EGD/MAC Patient:?TRENT RODRIGUEZ Provider:?Gilberto Hernandez MD :1945???Age:78 Y???Sex:Female D ate:06/25/2024 Address:[address] [place], [place] [phone] Pcp:Christian Lewis MD Subjective: * Chief Complaints: [...] MD Date:? 025 Generated for Printi ng/Fapercyg/eTransmitting on:?08/01/2024 07:16 AM EDT
--- OUTSIDE RECORDS SUMMARY | 2024-08-01 07:16 | XMS_ITS ---
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 Generated for Printi ng/Carylg/eTransmitting on:?08/01/2024 07:15 AM EDT
--- OUTSIDE RECORDS SUMMARY | 2024-08-01 07:16 | XMS_ITS ---
Author Organization Christian Lewis MD Address [address] [place], [place] [phone] Care Team Providers Care Emergency Planner Name Role Phone Christian Lewis Primary Care Provider [phone] Results Component Value Reference Range Notes Complete Blood Count Auto Di ff Reviewed date:07/03/2024 12:47:18 PM Interpretation: Performing Lab:[facility], [address] [place] [phone] Notes/Report: White Blood Count 3.5 4.8-10.8 X10*3/uL [...] Location Date Provider Diagnosis Christian Lewis MD [address] [place] [phone] 07/03/2024 Christian Lewis Lymphocytosis D72.82 0 Assessments Encounter Date Diagnosis (ICD Code) Assessment Notes Treatment Notes Treatment Clinical Notes Section Notes 07/03/2024 Lymphocytosis (ICD-10 - D72.820) Plan Of Treatment Next Appt Details Provider Name:Christian taylor, 11/27/2024 07:15:00 AM, [address] [place] [address], [address], [phone], Provider Name:Christian taylor, 12/04/2024 09:30:00 AM, [address] [place] [address], [address], [phone], Progress Notes * Mary Lou CELESTIN SDOB:1945 (79 yo F)Acc No.[id number]:07/03/2024 Progress Note Patient:?Mary Lou CELESTIN Provider:?Christian Lewis MD :1945???Age:78 Y???Sex:Female D ate:07/03/2024 Address:[address] [place], [place] [address] Subjective: * Chief Complaints: * ???1. CBC. [...] Lewis MD Date:?0 07/03/2024 Generated for Suzanne caraballo/Ligia/eTransmitting on:?08/01/2024 07:16 AM EDT
--- OUTSIDE RECORDS SUMMARY | 2024-08-01 07:16 | XMS_ITS ---
Author Organization [facility] Address [address] [facility] [address] [place] [address] Care Team Providers Care History Professor Name Role Phone Christian Lewis MD Primary Care Provider Gilberto Hollingsworth Unavailable [phone] REASON FOR VISIT refill of script Medications Medication SIG (Take, Route, Frequency, Duration) Notes Start Date End Date Status Iron (Ferrous Sulfate) 325 (65 Fe) MG 1 tablet Orally Twice a day for 30 days Active Problems Problem Type SNOMED Code ICD Code Onset Dates Problem Status W/U Status Risk Notes Problem Anemia ([id number]) Anemia (D64.9) Active confirmed Encounters Encounter Location Date Provider Diagnosis [facility] [address] [facility] [address] [place] [phone] 07/21/2024 Gilberto Hernandez Anemia D64.9 Assessments Encounter Date Diagnosis (ICD Code) Assessment Notes Treatment Notes Treatment Clinical Notes Section Notes 07/21/2024 Anemia (ICD-10 - D64.9) Plan Of Treatment Medication Medication Name Sig Start Date Stop Date Notes Iron (Ferrous Sulfate) 325 ( 65 Fe) MG 1 tablet Orally Twice a day for 30 days Pending Test Test Name Order Date IRON + IBC (FE) 07/21/2024 CBC w DIFF 07/21/2024 Ferritin 07/21/2024 Next Appt Details Provider Name:Gilberto Hernandez , 02/02/2025 09:50:00 AM, [address] [place] [address], [address], [place], [address], Progress Notes * TRENT RODRIGUEZ SDOB:1945 (79 yo F)Acc No.[id number]:07/21/2024 Patient:?TRENT RODRIGUEZ :1945???Age:79 Y???Sex:Female Address:[address] [place] [address], [place] [address] * Refills? Refill Iron (Ferrous Sulfate) Tablet, 325 (65 Fe) MG, Orally, 60 Tablet, 1 tablet, Twice a day, 30 days, Refills=11 Subjective: * Chief Complaints: * ???Refill of script * Medical History:? * Surgical History:? * Hospitalization/Major Diagno stic Procedure:? * Medications:? Objective: * Vitals:? * Physical Examination:? Assessment: * Assessment: 1.?Anemia - D64.9 (Primary)? ?? Plan: * Treatment: 2.?Others? Refill Iron (Ferrous Sulfate) Tablet, 325 (65 Fe) MG, 1 tablet, Orally, Twice a day, 30 days, 60 Tablet, Refills 11.?? * Procedure Codes:? * * Date:?
--- OUTSIDE RECORDS SUMMARY | 2024-08-01 07:16 | XMS_ITS ---
Author Organization Chirstian Lewis MD Address [address] [place] [phone] Care Team Providers Care Senior Care Provider Name Role Phone Christian Lewis Primary Care Provider Results Component Value Reference Range Notes UA ClnCatch+Micro w/rflx Cul t Reviewed date:07/24/2024 12:06:18 PM Interpretation: Performing Lab:[facility], [address] [place] [phone] Notes/Report: Urine, Clean Catch Color Urine Yellow Appearance Urine Clear PH 6.0 5.0-9.0 Glucose Urine UA Negative Negative mg/dL Urine Blood Negative Negative Specific [place] - Urine 1.015 1.005-1.025 Urine Protein Negative [...] Christian Lewis MD [address] [place] [phone] 07/24/2024 Christian Lewis Hematuria, unspecified type R31.9 Assessments Encounter Date Diagnosis (ICD Code) Assessment Notes Treatment Notes Treatment Clinical Notes Section Notes 07/24/2024 Hematuria, unspecified type (ICD-10 - R31.9) Plan Of Treatment Next Appt Details Provider Name:Christian Zavala Ashleytuan brandon, 11/27/2024 07:15:00 AM, [address], [address], [place], [place], [phone], Provider Name:Christian Martin olur, 12/04/2024 09:30:00 AM, [address], [address], [place], [place], [phone], Progress Notes * CELESTINJohanaMary Lou SDOB:1945 (79 yo F)Acc No.[id number]:07/24/2024 Progress Note Patient:?Mary Lou CELESTIN Provider:?Christian Lewis MD :1945???Age:79 Y???Sex:Female D ate:07/24/2024 Address:[address] [place] [address] Subjective: * Chief Complaints: * ???1. repeat U/A in 1 month. * Medical History:? Objective: * Vitals:? Assessment: * Assessment: 1.?Hematuria, unspecified ty pe - R31.9 (Primary)??? Plan: * Treatment: * * The named appointment provid er may or may not be the originator of this progress note, and it is not deemed complete until electronically signed by the appointment provider. Sign off status: Pending * Provider:?Christian Lewis MD Date:?0 07/24/2024 Generated for Suzanne caraballo/Ligia/Lexitting on:?08/01/2024 07:16 AM EDT
[2024-08-01 08:01] LABS: INTERNATIONAL NORM RATIO 1.1 (0.9-1.1); Prothrombin Time 12.3 SEC (10.9-12.4)
[2024-08-01 08:15] LABS: Hematocrit 33.3 % (37.0-47.0); Hemoglobin 10.7 g/dl (12.0-16.0); Mean Corpuscular HGB Conc 32.1 g/dl (31.0-35.0); Mean Corpuscular Hemoglobin 27.2 pg (27.0-33.0); Mean Corpuscular Volume 84.7 fL (80.0-98.0); Mean Platelet Volume 10.6 fL (9.4-12.3); Platelet Count 66 X10*3/uL (160-400); Red Blood Count 3.93 X10*6/uL (4.20-5.50); Red Cell Distribution Width 17.8 % (11.0-16.0); White Blood Count 2.9 X10*3/uL (4.8-10.8)
[2024-08-01 08:31] LABS: Anion Gap 12 (12-20); Blood Urea Nitrogen 10 mg/dL (9-16); Calcium 8.9 mg/dL (8.4-10.2); Carbon Dioxide 22 mmol/L (22-29); Chloride 111 mmol/L (96-108); Estimated Glomerular Filt Rate > 60; Glucose Random 120 mg/dL (60-115); Potassium 3.9 mmol/L (3.3-5.1); Sodium 141 mmol/L (135-145)
== END 2024-08-01 07:13 | disposition home or self-care (01) ==
LOC: HO.LAB 07:12
PROVIDERS: Absent Provider Internal Medicine Cardiovascular Disease; PCP Internal Medicine; Visit Provider Internal Medicine
DX: I35.0 Nonrheumatic aortic (valve) stenosis (principal); D69.6 Thrombocytopenia, unspecified
CPT/HCPCS: 36415; 80048; 85027; 85610

== ENCOUNTER → 2024-08-04 23:59 | Outpatient (BNV) | payer MEDICARE, SELFPAY | PROVIDERS: PCP Internal Medicine; Visit Provider Internal Medicine Cardiovascular Disease | DX: I50.20 Unspecified systolic (congestive) heart failure (principal); I35.0 Nonrheumatic aortic (valve) stenosis | CPT/HCPCS: 93458; 99152 ==

== ENCOUNTER 2024-08-05 08:19 | Outpatient (REF) | payer MEDICARE, SELFPAY ==
--- NOTE | ~2024-08-05 | US_ITS ---
EXAMINATION: US ABDOMEN COMPLETE WITH LIVER ELASTOGRAPHY HISTORY: FATTY LIVER, IRON DEFICIENCY ANEMIA, TECHNIQUE: Real-time grayscale ultrasound imaging of the abdomen was performed and images were reviewed. COMPARISON: Comparison is made with the prior examination dated 04/30/2023. FINDINGS: Liver: The right lobe of the liver measures 17.8 cm in size. The left lobe of the liver measures 13.4 cm in size. The liver demonstrates coarsened echotexture and a nodular contour, suggestive of cirrhosis. No focal mass or intrahepatic biliary ductal dilatation is identified. There is normal hepatopedal flow in the portal vein. Ultrasound elastography of the liver was performed with 10 separate measurements of the liver parenchyma with the patient in the supine position. Measurements were obtained approximately 2 cm below Jaxon's capsule and perpendicular to the capsule. Images are of satisfactory quality. The median shear wave velocity is 1.04 m/s. The interquartile range/median (IQR/median) is 0.17. Gallbladder and biliary tree: The gallbladder is unremarkable, without evidence of calculi, wall thickening, or pericholecystic fluid. There is no sonographic Elizondo sign. The common bile duct is normal in caliber measuring 7 mm. Kidneys: The right kidney measures 10.8 cm in length. The left kidney measures 10.2 cm in length. The kidneys are unremarkable, without evidence of masses, hydronephrosis, or calculi. Pancreas: The pancreatic head, neck, and body are unremarkable. The pancreatic tail is obscured by bowel gas. Spleen: The spleen is normal in size and contour, measuring 21.4 cm in length. Abdominal aorta and inferior vena cava: The visualized portions of the abdominal aorta and inferior vena cava are normal in caliber. There is no free fluid in the abdomen. US/US duplex arterial venous comp IMPRESSION: Hepatosplenomegaly. Nodular liver contour, suggestive of cirrhosis. The median shear wave velocity in the liver is 1.04 m/s, corresponding to a median liver stiffness of 3.3 kPa. The IQR/median value is 0.17. This is indicative of a poor quality data set, and the estimated liver stiffness may be unreliable. Findings are indicative of a normal elastography value with a low likelihood of severe fibrosis or cirrhosis. REFERENCE: Society of Radiologists in Ultrasound Liver Stiffness Thresholds (2020): LIVER STIFFNESS THRESHOLDS: *Shear wave velocity less than 1.3 m/s (Liver Stiffness equal or less than 5 kPa): High probability of being normal. *Shear wave velocity less than 1.7 m/s (Liver Stiffness less than 9 kPa): In the absence of other known clinical signs, rules out compensated advanced chronic liver disease. *Shear wave velocity between 1.7-2.1 m/s (Liver Stiffness 9-13 kPa): Suggestive of compensated advanced chronic liver disease but need further test for confirmation. *Shear wave velocity between 2.1-2.4 m/s (Liver Stiffness 13-17 kPa): Rules in compensated advanced chronic liver disease. *Shear wave velocity greater than 2.4 m/s (Liver Stiffness over 17 kPa): Suggestive of clinically significant portal hypertension. QUALITY OF DATA SET: *IQR/Median value equal or less than 0.15 implies a quality data set. *IQR/Median value over 0.15 implies a poor quality data set. SIGNIFICANT CHANGE FROM PRIOR EXAM: Significant change if liver stiffness measurement is 10% or greater from prior exam. OTHER CONSIDERATIONS: The stage of liver fibrosis may be overestimated in the setting of acute hepatitis, liver inflammation, elevated liver function tests, hepatic vascular congestion, obstructive cholestasis, non-fasting state, and infiltrative diseases such as amyloidosis and lymphoma. In some patients with NAFLD, the liver stiffness thresholds for compensated advanced chronic liver disease may be lower. In causes other than viral hepatitis and NAFLD, liver stiffness thresholds are not well established. Electronically signed by: Gilberto Thompson MD 08/05/2024 10:27 AM EDT
== END 2024-08-05 08:20 | disposition home or self-care (01) ==
LOC: HO.US 08:19
PROVIDERS: PCP Internal Medicine; Visit Provider Internal Medicine
DX: K76.0 Fatty (change of) liver, not elsewhere classified (principal); D50.9 Iron deficiency anemia, unspecified; K74.69 Other cirrhosis of liver
CPT/HCPCS: 76700; 76981; 93975

== ENCOUNTER → 2024-08-05 08:24 | Outpatient (BNV) | payer MEDICARE, SELFPAY | PROVIDERS: PCP Internal Medicine; Visit Provider Radiology Diagnostic Radiology | DX: K76.0 Fatty (change of) liver, not elsewhere classified (principal); D50.9 Iron deficiency anemia, unspecified | CPT/HCPCS: 76700; 76981; 93975 ==

== ENCOUNTER 2024-08-13 11:21 | Day surgery (SDC) | payer MEDICARE, SELFPAY ==
[2024-08-13] VITALS (9 sets, daily range): BP systolic 110–151; BP diastolic 51–97; PULSE 75–85; RESP 11–18; O2SAT 94–100; BMI 30.1
--- NOTE | ~2024-08-13 | CT_ITS ---
PROCEDURES: 1. Limited preprocedure CT of the pelvis. Permanent images saved in PACS. 2. 11 g bone marrow core biopsy of the left posterior iliac spine 3. 11 g bone marrow aspirate of the left posterior iliac spine MEDICATIONS: -Versed 1 mg, Fentanyl 50 mcg, and lidocaine 1% 10 mL SQ -Antibiotics: None -For additional details, please see nursing flowsheet. COMPLICATIONS: None ESTIMATED BLOOD LOSS: < 5 ml CONTRAST: None SPECIMENS: 11 g core placed in formalin. Bone marrow aspirate placed in EDTA and sodium heparin tubes MODERATE SEDATION TIME: 15 min PROCEDURE NOTE: The procedure, risks, benefits, and alternatives were carefully explained to the patient and written informed consent was obtained. The patient was placed prone on the CT table. A timeout was performed. A limited CT of the pelvis was performed to localize posterior iliac spine and choose appropriate needle entry and trajectory. The patient was prepped and draped in usual sterile fashion. The skin, subcutaneous tissues, and periosteum were anesthetized with lidocaine. Under CT guidance, an 11-gauge bone marrow biopsy needle was advanced into the posterior iliac spine, with the tip positioned slightly cephalad. An 11-gauge core biopsy of the bone marrow was performed and was placed in formalin. Next, the 11-gauge bone marrow biopsy needle was then advanced into the posterior iliac spine, under CT guidance, with the tip positioned slightly caudal. A bone marrow aspirate was performed. The specimen was placed in the provided EDTA and sodium heparin tubes. The needle was removed. A dry dressing was applied and secured with Tegaderm. There were no immediate complications. The patient was stable after the procedure and was transferred to the post anesthesia care unit. The procedure was done under moderate sedation with a dedicated nurse for monitoring of vital signs. CT/CT biopsy asp core bone marrow Impression: CT-guided bone marrow biopsy and aspirate Electronically signed by: Tim Perla MD 08/13/2024 01:54 PM EDT
[2024-08-13 12:20] LABS: MANUAL DIFF FLAG NO
[2024-08-13 12:23] LABS: Basophils Percent Auto 0.6 % (0-2); Eosinophils Absolute Auto 0.1 X10*3/uL (0.0-0.4); Eosinophils Percent Auto 2.2 % (0-4); Hematocrit 32.4 % (37.0-47.0); Hemoglobin 10.6 g/dl (12.0-16.0); Imm Gran Abs Auto 0.01 X10*3/uL (0.00-0.03); Imm Gran Pct Auto 0.3 % (0.0-0.4); Lymphocytes Absolute Auto 0.8 X10*3/uL (1.2-4.9); Lymphocytes Percent Auto 25.4 % (20-40); Mean Corpuscular HGB Conc 32.7 g/dl (31.0-35.0); Mean Corpuscular Hemoglobin 27.2 pg (27.0-33.0); Mean Corpuscular Volume 83.3 fL (80.0-98.0); Mean Platelet Volume 10.1 fL (9.4-12.3); Monocytes Absolute Auto 0.3 X10*3/uL (0.1-1.2); Monocytes Percent Auto 8.6 % (2-11); Neutrophils Percent Auto 62.9 % (45-73); Red Blood Count 3.89 X10*6/uL (4.20-5.50); Red Cell Distribution Width 16.6 % (11.0-16.0); White Blood Count 3.2 X10*3/uL (4.8-10.8)
[2024-08-13 12:24] LABS: Platelet Count 91 X10*3/uL (160-400)
[2024-08-13] MEDS: fentaNYL citrate/PF 100 MCG/2 ML VIAL 50 MCG IVPUSH (13:13)
[2024-08-13] MEDS: Midazolam HCl 2 MG/2 ML VIAL 1 MG IVPUSH (13:13)
[2024-08-13] MEDS: Lidocaine HCl 1 % MPF 30 ML VIAL 10 ML SUBCUT (13:57)
[2024-08-13 13:58] LABS: Bone Marrow SEE SEPARATE REPORT
== END 2024-08-13 14:46 | disposition home or self-care (01) ==
PROVIDERS: Pathology Anatomic Pathology & Clinical Pathology; Radiology Vascular & Interventional Radiology; Student in an Organized Health Care Education/Training Program; PCP Internal Medicine; Visit Provider Internal Medicine
DX: D64.9 Anemia, unspecified (principal); D61.818 Other pancytopenia; D69.6 Thrombocytopenia, unspecified; C91.10 Chronic lymphocytic leukemia of B-cell type not having achieved remission; I10 Essential (primary) hypertension; I35.0 Nonrheumatic aortic (valve) stenosis; E78.00 Pure hypercholesterolemia, unspecified; E03.9 Hypothyroidism, unspecified; K76.0 Fatty (change of) liver, not elsewhere classified; E66.9 Obesity, unspecified; Z87.19 Personal history of other diseases of the digestive system; Z98.890 Other specified postprocedural states; Z87.891 Personal history of nicotine dependence; Z79.899 Other long term (current) drug therapy
CPT/HCPCS: 36415; 38222; 80076; 82248; 85025; 88184; 88185; 88237; 88264; 88305; 88311; 88313; 88341; 88342; 88360; 88374; 99152; J2003; J2250; J2310; J3010

== ENCOUNTER → 2024-08-13 12:52 | Outpatient (BNV) | payer MEDICARE, SELFPAY | PROVIDERS: PCP Internal Medicine; Visit Provider Student in an Organized Health Care Education/Training Program | DX: D61.818 Other pancytopenia (principal) | CPT/HCPCS: 38222; 77012; 99152 ==

== ENCOUNTER 2024-08-19 14:16 | Outpatient (AMB) | payer MEDICARE, SELFPAY ==
[2024-08-19 14:35] VITALS: BP 120/68; PULSE 70; BMI 29.3
--- NOTE | 2024-08-19 14:35 | MHC.OFFVIS ---
Vital Signs 08/19/24 14:35 Height 5 ft 5 in Weight 176 lb 5.917 oz BMI 29.3 BP 120/68 Blood Pressure Location Lt brachial Position Sitting Pulse 70 Pulse Source Pulse Oximeter Intake Visit Reasons: 2 wk follow up s/p Cardiac cath Allergies No Known Allergies [No Known Allergies*] Allergy (Verified 08/13/24 11:54) HPI Comments Details: This is a 78-year-old female patient presenting for a follow-up visit, accompanied by her daughter. Patient has significant history of severe aortic stenosis, hypertension, cirrhosis, anemia, and coronary artery disease. The patient was recently sent to the ER for hypotension and severe shortness of breath. During that admission it was also noted that she had severe anemia with a hemoglobin of 4.9. Patient underwent an EGD with a biopsy to evaluate for malignancy. Additionally, she had a consult with Dr. Mann regarding her severe symptomatic , and options for treatment including surgical versus transcatheter aortic valve replacement. The patient has expressed a desire to pursue TAVR and has a upcoming consultation appointment with Dr. Portillo at [facility] next week. During that admission, patient was started on Lasix which she reports has helped with her shortness of breath. Today, she states that she is feeling well overall and denies any other symptoms of exertional chest pain, palpitations, orthopnea, PND, leg edema, presyncope, or syncope. Patient reports being compliant with all her medications. [facility] Medical History Aortic stenosis Obesity Hypothyroid Fatty liver History of Ennis's esophagus GERD (gastroesophageal reflux disease) Elevated cholesterol HTN (hypertension) Surgical History Hx of brain surgery History of esophagogastroduodenoscopy (EGD) Hx of colonoscopy History of Yan fundoplication Family History Father Heart problem Paternal Grandmother Breast cancer Maternal Grandfather Breast cancer Social History Household Members: None Housing: House Are you a primary transitional care manager to a significant other at home: No Do you presently have visiting nurse or other home services: No Alcohol intake: current Alcohol intake frequency: a few times a month Patient Tobacco Use Status: Former Tobacco user Tobacco use type: Cigarette Second Hand Smoke Exposure: No service: No Current occupational status: retired Gender identity: Female Review of Systems Const Denies weakness ENT Denies dizziness Card Denies chest pain, Denies chest pain with activity, Denies syncope, Denies rapid heart rate, Denies pedal edema, Denies edema, Denies leg edema, Denies lightheadedness, Denies palpitations, Denies dyspnea, Denies dyspnea on exertion and Denies orthopnea Resp Denies cough, Denies dyspnea and Denies dyspnea on exertion GI Denies hematochezia and Denies change in stool character Musc Denies abnormal gait, Denies muscle cramps, Denies muscle weakness, Denies numbness, Denies radiating pain into limb and Denies tingling Neuro Denies abnormal gait, Denies dizziness, Denies syncope, Denies numbness, Denies tingling and Denies weakness Endo Denies palpitations Physical Exam Vital Signs: Last Vital Signs Pulse 70 08/19/24 14:35 BP 120/68 08/19/24 14:35 BMI result Body Mass Index 29.3 Const General: cooperative, healthy appearing, comfortable and no acute distress Orientation/consciousness: patient oriented x3 HEENT Head: Yes normal to inspection Neck Neck: Yes normal visual inspection, Yes trachea midline and Yes supple Chest Chest palpation & inspection: normal inspection of the chest Resp Effort & Inspection: normal respiratory effort Auscultation: clear to auscultation bilaterally, no crackles, no rales, no rhonchi and no wheezes Cardio Jugular venous distension: no JVD Palpation: normal PMI Rate: regular rate Rhythm: regular rhythm Heart sounds: S1 normal heart sound present, S2 normal heart sound present, no click, no gallops, Murmur heart sound present systolic at the right sternal border and no rubs Peripheral pulses: Peripheral pulses 2+ throughout GI Inspection: Yes normal to inspection Palpation (GI): Soft to palpation Auscultation: normal bowel sounds Skin General skin exam: no rashes or lesions noted Neuro General: patient oriented x3 Extrem General: Yes normal to inspection, No no pedal edema and No calf tenderness Psych Appearance: grossly normal Mental Status: mental status grossly normal Speech and movement: Normal speech and movement present Assessment & Plan Assessment & Plan (1) Status post cardiac catheterization: Code(s): Z98.890 - Other specified postprocedural states Category: Surgical Plan: 08/04/2024-patient underwent diagnostic cardiac catheterization that showed severe mid RCA stenosis approximately 90-95% and proximal LAD 70-75% stenosis. Due to her anemia patient is currently unable to take any antiplatelet therapy. Continue statin therapy with a goal of LDL less than 70. Most recent LDL 43. We will repeat labs periodically. Right wrist catheterization site is well healed. Blood pressure today within normal range, goal of BP less than 130/80. (2) Coronary artery disease: Code(s): I25.10 - Atherosclerotic heart disease of seneca coronary artery without angina pectoris Category: Medical Plan: As above. (3) Aortic stenosis: Code(s): I35.0 - Nonrheumatic aortic (valve) stenosis Category: Medical Plan: 06/23/2024-patient's echo showed an EF between 60-65%, mildly increased LV wall thickness, mildly in increased right ventricular cavity, severely dilated left atrium, severe aortic stenosis with a mean gradient of 44 mmHg and aortic valve area of 0.81cm2. Patient already had a TAVR consultation with Dr. Mann during the inpatient consultation. Patient would like to proceed with a TAVR. Patient to meet with cardiac surgeon next week in regards to this. We will proceed with a TAVR assessment per protocol today and see her after the procedure. Reviewed with Dr. Mann. (4) Mitral annular calcification: Code(s): I34.81 - Nonrheumatic mitral (valve) annulus calcification Category: Medical Plan: As above. Advised heart healthy diet, regular exercise as tolerated, losing weight, med compliance, and aggressive management of vascular risk factors. We will follow up in the office within 2 months' time. In the interim, patient will call us with any concerns or change in symptoms. This note was generated using voice recognition software. While every effort has been made to ensure accuracy and proper telecommunication operator, there may be occasional errors that could affect the content or meaning of the described symptoms. Orders: Orders Lipid Panel 3 Months I25.10 - Atherosclerotic heart disease of seneca coronary artery without angina pectoris Coding Level of Care Code Est Pt Level 4 (42791) Complex EM visit Add On G2211 Diagnoses Status post cardiac catheterization Z98.890 Coronary artery disease I25.10 Aortic stenosis I35.0 Mitral annular calcification I34.81 Time Spent (min) 32 Comment Time spent in reviewing the chart, test results, assessment, counseling and documentation.
--- OUTSIDE RECORDS SUMMARY | 2024-08-19 17:03 | XMS_ITS ---
Author Organization [facility] Address [address] [place] [address] Care Team Providers Care Fast Food Team Member Name Role Phone Joshua KNIGHT, Christian Primary Care Provider Gilberto Hollingsworth [phone] Allergies Allergen (clinical drug ingredient) Drug/Non Drug Allergy documented on EMR Reaction Allergy Type Onset Date Status lisinopril Lisinopril cough Drug Allergy Activ e Results Component Value Reference Range Notes Ferritin Reviewed date:07/05/2024 03:39:42 PM Interpretation: Performing Lab:[facility], [address] [place] [phone] Notes/Report: Ferritin 41 10-250 ng/mL REASON FOR [...] Notes Problem Benign neoplasm of small intestine (07088801) 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 Vital Signs Temperature 96.9 degrees Fahrenheit 07/01/19 25 Blood pressure systolic 001 mm Hg 07/01/19 25 Blood pressure diastolic 01 mm Hg 025 Height 65.25 in 07/01/2024 Weight 192 lbs 07/01/2024 BMI 31.7 kg/m2 07/01/2024 Encounters Encounter Location Date Provider Diagnosis [facility] [address] [place] [address] 07/01/2024 Gilberto Mary Barretts esophagus without dysplasia [...] Name:Gilberto Hernandez , 02/02/2025 09:50:00 AM, [address] [facility], [address], [place], [address], Progress Notes * TRENT RODRIGUEZ SDOB:1945 (79 yo F)Acc No.[id number]:07/01/2024 Progress Notes Patient:?TRENT RODRIGUEZ Provider:?Gilberto Hernandez MD :1945???Age:78 Y???Sex:Female D ate:07/01/2024 Address:[address] [place], [place] [id number] Pcp:Christian Lewis MD Subjective: * Chief Complaints: * ???1. Patient presents today for barretts, elevated LFTs. * Medical History:?GERD with B arrett's esophagus-areas of high and low grade dysplasia seen in fall-has been going to [facility] and Dr. Ferrer for ablation Rx of the Ennis's-most recent Rx was 01/2012-biopsies in 11/2011 showed the Ennis's, but no dysplasia, Hypothyroidism, HTN, Hyperlipidemia, Tubular adenomas removed from colon in 2005 and 2011, Denies DC,DM,CVA,Lung disease,renal disease, Brain aneurysm with Agram and clipping in 12/2007, Duodenal tubular adenoma removed in 2009., Most recent EGD in [place] was in 09/2012--Bx from 35 to 27 cm all neg for Ennis's esophagus nor dysplasia-same HH noted, EGD 04/2013 with me at [facility]--small areas of Ennis's mucosa, but no dysplasia [...] elastography* sched for 08/07/24 at 9:00 am [facility] ultrasound dept 2nd floor fasting 8 hrs prior * ?Imaging: US duplex arterial venous comp* Doppler of abdomen -- rule o ut portal vein thrombosissched for 08/10/24 at 8:30 [facility] ultrasound 2nd floor * 2.?Iron deficiency anemia, unspecified iron deficiency anemia type?LAB: IRON + IBC (FE) ?LAB: CBC w DIFF ?LAB: Ferritin (Collection Date & Time - 07/03/2024 07:31 AM)* ? Value Reference Range ?Ferritin 41 10-250 - ng/mL ?Imaging: US abdomen comp w elastography* sched for 08/07/24 at 9:00 am [facility] ultrasound dept 2nd floor fasting 8 hrs prior * ?Imaging: US duplex arterial venous comp* Doppler of abdomen -- rule o ut portal vein thrombosissched for 08/10/24 at 8:30 [facility] ultrasound 2nd floor * Notes: Start taking [...] elastography* sched for 08/07/24 at 9:00 am [facility] ultrasound dept 2nd floor fasting 8 hrs prior * ?Imaging: US duplex arterial venous comp* Doppler of abdomen -- rule o ut portal vein thrombosissched for 08/10/24 at 8:30 [facility] ultrasound 2nd floor * * Preventive Medicine:? [...] MD Date:? 025 Generated for Suzanne caraballo/Ligia/Derek on:?08/19/2024 05:03 PM EDT
--- OUTSIDE RECORDS SUMMARY | 2024-08-19 17:03 | XMS_ITS ---
Author Organization [facility] Address [address] [facility] [place] [address] Care Team Providers Care Material Control Supervisor Name Role Phone Christian Lewis MD Primary Care Provider Maite Mayfield Unavailable [phone] Allergies No Known Allergies REASON FOR VISIT [...] 07/24/2023 Encounters Encounter Location Date Provider Diagnosis [facility] [address] [place] [address] 07/24/2023 Maite Cedeno Ingrown nail L60.0 Assessments Encounter Date Diagnosis (ICD Code) Assessment Notes Treatment Notes Treatment Clinical Notes Section Notes 07/24/2023 Ingrown nail (ICD-10 - L60.0) Plan Of Treatment Next Appt Details Follow Up: prn, Reason: Progress Notes * Mary Lou CELESTIN SDOB:1945 (78 yo F)Acc No.[id number]:07/24/2023 Progress Notes Patient:?Mary Lou Celestin S Provider:?Maite Cedeno DPM :1945???Age:78 Y???Sex:Female D ate:07/24/2023 Address:[address] [facility] [place] [facility] Pcp:Christian Lewis MD Subjective: * Chief Complaints: [...] yes, walking. ?Marital status: . 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 * Medications:?TakingIron Melisa min D3 Ursodiol 500 [...] Cedeno DPM Date:?10/2023 Generated for Suzanne caraballo/Ligia/Jessicasmitting on:?08/19/2024 05:03 PM EDT History and Physical Notes * HPI [...]
--- OUTSIDE RECORDS SUMMARY | 2024-08-19 17:03 | XMS_ITS | Clinical Summary ---
Author Organization [facility] Address [address] [place] [address] Care Team Providers Care Counseling Program Leader Name Role Phone Unavailable Primary Care Provider [...]
--- OUTSIDE RECORDS SUMMARY | 2024-08-19 17:03 | XMS_ITS ---
Author Organization Christian Lewis MD Address [address] [place], [place] [phone] Care Team Providers Care Office Manager Receptionist Name Role Phone Christian Lewis Primary Care Provider [phone] Results Component Value Reference Range Notes Complete Blood Count Auto Di ff Reviewed date:07/17/2024 12:39:24 PM Interpretation: Performing Lab:[facility], [address] [place] [phone] Notes/Report: White Blood Count 3.5 4.8-10.8 X10*3/uL [...] Location Date Provider Diagnosis Christian Lewis MD [address] [place] [phone] 07/17/2024 Christian Lewis Gastrointestinal hemorrhage associated with duodenitis K29.81 Assessments Encounter Date Diagnosis (ICD Code) Assessment Notes Treatment Notes Treatment Clinical Notes Section Notes 07/17/2024 Gastrointestinal hemorrhage associated with duodenitis (ICD-10 - K29.81) Plan Of Treatment Next Appt Details Provider Name:Christian taylor, 11/27/2024 07:15:00 AM, [address] [place] [address], [address], [phone], Provider Name:Christian taylor, 12/04/2024 09:30:00 AM, [address] [place] [address], [address], [phone], Progress Notes * Mary Lou CELESTIN SDOB:1945 (79 yo F)Acc No.[id number]:07/17/2024 Progress Note Patient:?Mary Lou CELESTIN Provider:?Christian Lewis MD :1945???Age:79 Y???Sex:Female D ate:07/17/2024 Address:[address] [place] [address] [id number] Subjective: * Chief Complaints: * ???1. CBC. * Medical History:? Objective: * Vitals:? Assessment: * Assessment: 1.?Gastrointestinal hemorrha ge associated with duodenitis - K29.81 (Primary)??? Plan: * Treatment: * Procedure Codes:?57199 VENIP UNCT, ROUTINE* * * The named appointment provid er may or may not be the originator of this progress note, and it is not deemed complete until electronically signed by the appointment provider. Sign off status: Pending * Provider:?Christian Lewis MD Date:?0 07/17/2024 Generated for Suzanne caraballo/Ligia/Derek on:?08/19/2024 05:03 PM EDT
--- OUTSIDE RECORDS SUMMARY | 2024-08-19 17:03 | XMS_ITS ---
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 Generated for Susani rashmi/Ligia/eTransmitting on:?08/19/2024 05:02 PM EDT
--- OUTSIDE RECORDS SUMMARY | 2024-08-19 17:03 | XMS_ITS | Patient Health Record ---
Author Organization [facility] Address [address] [facility] [place] [address] Care Team Providers Care Field Irrigation Worker Name Role Phone Christian Lewis MD Primary Care Provider Maite Mayfield Unavailable [phone] Allergies No Known Allergies Reason For Referral [...] Date [employer] [place] Medicare Advantage [address] [facility] [address] [phone] [id number] Mary Lou Celestin Self - patient is the insured Medical (General) History Medical History History ICD Code High blood pressure Scarlet fever thyroid Chicken pox Surgical History Surgery Date(Month/Year) hysterectomy 1985 knee surgery, left shoulder surgery right stomach surgery 1995 brain aneurysm 2007 colonoscopy 05/29/23
--- OUTSIDE RECORDS SUMMARY | 2024-08-19 17:04 | XMS_ITS ---
Author Organization [facility] Address [address] [place] [address] Care Team Providers Care Tire Repairer Name Role Phone Christian Lewis MD Primary Care Provider Gilberto Hollingsworth Unavailable [phone] REASON FOR VISIT missing cpt code Encounters Encounter Location Date Provider Diagnosis [facility] [address] [place] [address] 08/12/2024 Gilberto Hernandez Plan Of Treatment Next Appt Details Provider Name:Gilberto Hernandez , 02/02/2025 09:50:00 AM, [address], [address], [place], [address], Progress Notes * TRENT RODRIGUEZ SDOB:1945 (79 yo F)Acc No.[id number]:08/12/2024 Patient:?TRENT RODRIGUEZ :1945???Age:79 Y???Sex:Female Address:[address] [place] [address] [place] [address] * true * Date:? Generated for Suzanne caraballo/Ligia/eTransmitting on:?08/19/2024 05:04 PM EDT
--- OUTSIDE RECORDS SUMMARY | 2024-08-19 17:04 | XMS_ITS ---
Author Organization Christian Lewis MD Address [address] [place] [phone] Care Team Providers Care Vehicle Service Agent Name Role Phone Christian Lewis Primary Care Provider Results Component Value Reference Range Notes UA ClnCatch+Micro w/rflx Cul t Reviewed date:07/24/2024 12:06:18 PM Interpretation: Performing Lab:[facility], [address] [place] [phone] Notes/Report: Urine, Clean Catch Color Urine Yellow Appearance Urine Clear PH 6.0 5.0-9.0 Glucose Urine UA Negative Negative mg/dL Urine Blood Negative Negative Specific [place] - Urine 1.015 1.005-1.025 Urine Protein Negative [...] Christian Lewis MD [address] [place] [phone] 07/24/2024 Christian Lewis Hematuria, unspecified type R31.9 Assessments Encounter Date Diagnosis (ICD Code) Assessment Notes Treatment Notes Treatment Clinical Notes Section Notes 07/24/2024 Hematuria, unspecified type (ICD-10 - R31.9) Plan Of Treatment Next Appt Details Provider Name:Christian Martin brandon, 11/27/2024 07:15:00 AM, [address], [address], [place], [place], [phone], Provider Name:Christian Martin olur, 12/04/2024 09:30:00 AM, [address], [address], [place], [place], [phone], Progress Notes * CELESTIN Mary Lou SDOB:1945 (79 yo F)Acc No.[id number]:07/24/2024 Progress Note Patient:?Mary Lou CELESTIN Provider:?Christian Lewis MD :1945???Age:79 Y???Sex:Female D ate:07/24/2024 Address:[address] [place] [address] Subjective: * Chief Complaints: * ???1. repeat [...] MD Date:?0 07/24/2024 Generated for Suzanne caraballo/Ligia/Lexitting on:?08/19/2024 05:04 PM EDT
--- OUTSIDE RECORDS SUMMARY | 2024-08-19 17:04 | XMS_ITS ---
Author Organization Christian Lewis MD Address [address] [place] [phone] Care Team Providers Care Line Server Name Role Phone Christian Lewis Primary Care Provider REASON FOR VISIT HCC Risk Codes 12/04 Encounters Encounter Location Date Provider Diagnosis Christian Lewis MD [address] [facility] [address] [place] [phone] 08/03/2024 Christian Lewis Plan Of Treatment Next Appt Details Provider Name:Christian Martin ier, 11/27/2024 07:15:00 AM, [address] [place] [address], [address], [phone], Provider Name:Christian Zavala Mario ier, 12/04/2024 09:30:00 AM, [address] [place] [address], [address] [place] [address], [phone], Progress Notes * Mary Lou CELESTIN SDOB:1945 (79 yo F)Acc No.[id number]:08/03/2024 Patient:?Mary Lou CELESTIN :1945???Age:79 Y???Sex:Female Address:[address] [place] [address], [place] [address] * * Date:?
--- OUTSIDE RECORDS SUMMARY | 2024-08-19 17:04 | XMS_ITS ---
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 Generated for Printi ng/Fapercyg/eTransmitting on:?08/19/2024 05:03 PM EDT
--- OUTSIDE RECORDS SUMMARY | 2024-08-19 17:04 | XMS_ITS ---
Author Organization [facility] Address [address] [facility] [address] [place] [address] Care Team Providers Care Calender Wind Up Helper Name Role Phone Christian Lewis MD Primary Care Provider Gilberto Hollingsworth Unavailable [phone] REASON FOR VISIT refill of script Medications Medication SIG (Take, Route, Frequency, Duration) Notes Start Date End Date Status Iron (Ferrous Sulfate) 325 (65 Fe) MG 1 tablet Orally Twice a day for 30 days Active Problems Problem Type SNOMED Code ICD Code Onset Dates Problem Status W/U Status Risk Notes Problem Anemia (041688379) Anemia (D64.9) Active confirmed Encounters Encounter Location Date Provider Diagnosis [facility] [address] [facility] [address] [place] [address] 07/21/2024 Gilberto Hernandez Anemia D64.9 Assessments Encounter [...] Provider Name:Gilberto Hernandez , 02/02/2025 09:50:00 AM, [address] [place] [address], [address], [place], [address], Progress Notes * TRENT RODRIGUEZ SDOB:1945 (79 yo F)Acc No.[id number]:07/21/2024 Patient:?TRENT RODRIGUEZ :1945???Age:79 Y???Sex:Female Address:[address] [place] [address], [place] [address] * Refills? Refill Iron (Ferrous Sulfate) Tablet, [...]
== END 2024-08-19 15:18 | disposition home or self-care (01) ==
LOC: HO.HCS 14:16
PROVIDERS: PCP Internal Medicine
DX: Z98.890 Other specified postprocedural states (principal); I25.10 Atherosclerotic heart disease of native coronary artery without angina pectoris; I35.0 Nonrheumatic aortic (valve) stenosis; I34.81 Nonrheumatic mitral (valve) annulus calcification
CPT/HCPCS: 99214; G2211

== ENCOUNTER → 2024-08-19 14:16 | Outpatient (BNVA) | payer MEDICARE, SELFPAY | PROVIDERS: PCP Internal Medicine | DX: I25.10 Atherosclerotic heart disease of native coronary artery without angina pectoris (principal); I35.0 Nonrheumatic aortic (valve) stenosis; I34.81 Nonrheumatic mitral (valve) annulus calcification; Z98.890 Other specified postprocedural states | CPT/HCPCS: 99212 ==

== ENCOUNTER 2024-09-08 09:48 | Outpatient (REF) | payer MEDICARE, SELFPAY ==
--- NOTE | ~2024-09-08 | PE_ITS ---
EXAMINATION: FLUORINE-18 FDG PET/CT SCAN CLINICAL INFORMATION: Staging of CLL. TECHNIQUE: 65 minutes following the intravenous administration of 17.6 mCi of fluorine 18 FDG, images from the skull base to proximal thigh were obtained using a combined PET/CT scanner with CT scan based attenuation correction. No oral or intravenous contrast was administered. Transverse, coronal, sagittal, and volume reconstruction projections were obtained. The patient's blood glucose as determined by a finger stick, was 92 mg/dL immediately prior to injection. The radiotracer was injected intravenously through the left wrist, without any complications. Total CT exam dose-length product 746 mGy-cm. * These CT images were obtained using dose optimization techniques as appropriate, variously including the following: Automated exposure control * Adjustment of mA and/or kV according to patient size (this includes techniques or standardized protocols for targeted exams where dose is matched to indication/reason for exam; i.e. extremities or head) * Use of iterative reconstruction technique COMPARISON: CT abdomen and pelvis 06/23/2024 FINDINGS: HEAD AND NECK: There is a focal abnormal activity seen in left nasopharynx adjacent to torus tubarias No large intracranial hemorrhage, acute territorial infarct or significant shift of midline structures. There are postsurgical champ in the left para/ supra sellar region from previous intervention. CHEST: Ports and Devices: None Lungs: No abnormal radiotracer uptake. Pleura: No significant pleural effusion. Lymph Nodes: No tracer-avid mediastinal, hilar or internal mammary or axillary lymphadenopathy. Mediastinum: There is no significant pericardial effusion/thickening. Breasts/Chest Wall: No abnormal radiotracer uptake. ABDOMEN/PELVIS: Liver/Biliary System: No focal tracer-avid liver lesion. The gallbladder appears unremarkable. Pancreas: Normal.No pancreatic ductal dilatation seen. Spleen: Spleen is enlarged measuring 20 cm in craniocaudad length. No focal FDG activity seen however there is mild diffuse FDG activity noted.. Adrenal Glands: No abnormal radiotracer uptake. Kidneys: No hydronephrosis, hydroureter or renal calculi bilaterally. There is a bilateral extrarenal kidney pelvises with excluded metabolic activity. Bowel: Moderate scattered stool is seen throughout the colon without distention. The small bowel loops are nondistended. Appendix is not seen. The stomach is nondistended. A small umbilical hernia containing fat is noted Lymph Nodes: No tracer avid retroperitoneal, mesenteric or pelvic and/or groin lymphadenopathy. Pelvic Organs: The urinary bladder is underdistended. MUSCULOSKELETAL: No aggressive lytic or sclerotic process seen. VASCULAR: There is mild atherosclerotic calcification of abdominal aorta. No aneurysmal dilatation. PET/PET CT fusion skull to thigh Impression: Focal FDG activity left posterior nasopharynx. This could be secondary to primary lesion or a lymph node. Splenomegaly. Recommend direct visualization. Rest of the PET CT exam is unremarkable. Electronically signed by: Jeevan De Anda MD 09/09/2024 07:29 AM EDT RP
--- OUTSIDE RECORDS SUMMARY | 2024-09-08 10:55 | XMS_ITS | Patient Health Record ---
Author Organization [facility] Address [address] [facility] [place] [address] Care Team Providers Care Locomotive Crane Operator Name Role Phone Christian Lewis MD Primary Care Provider Maite Mayfield Unavailable [phone] Allergies No Known Allergies Reason For Referral [...] Date [employer] [place] Medicare Advantage [address] [facility] [address] [phone] [id number] Mary Lou Celestin Self - patient is the insured Medical (General) History Medical History History ICD Code High blood pressure Scarlet fever thyroid Chicken pox Surgical History Surgery Date(Month/Year) hysterectomy 1985 knee surgery, left shoulder surgery right stomach surgery 1995 brain aneurysm 2007 colonoscopy 05/29/23
--- OUTSIDE RECORDS SUMMARY | 2024-09-08 10:55 | XMS_ITS ---
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 Generated for Susani rashmi/Ligia/eTransmitting on:?09/08/2024 10:55 AM EDT
--- OUTSIDE RECORDS SUMMARY | 2024-09-08 10:56 | XMS_ITS ---
Author Organization [facility] Address [address] [place] [address] Care Team Providers Care Welder And Fitter Name Role Phone Christian Lewis MD Primary Care Provider Maite Mayfield Unavailable [phone] Allergies No Known Allergies REASON FOR VISIT [...] 07/24/2023 Encounters Encounter Location Date Provider Diagnosis [facility] [address] [place] [address] 07/24/2023 Maite Cedeno Ingrown nail L60.0 Assessments Encounter Date Diagnosis (ICD Code) Assessment Notes Treatment Notes Treatment Clinical Notes Section Notes 07/24/2023 Ingrown nail (ICD-10 - L60.0) Plan Of Treatment Next Appt Details Follow Up: prn, Reason: Progress Notes * Mary Lou CELESTIN SDOB:1945 (78 yo F)Acc No.[id number]:07/24/2023 Progress Notes Patient:?Mary Lou Celestin S Provider:?Maite Cedeno DPM :1945???Age:78 Y???Sex:Female D ate:07/24/2023 Address:[address] [id number] Pcp:Christian Lewis MD Subjective: * Chief Complaints: [...] yes, walking. ?Marital status: . 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 * Medications:?TakingIron Melisa min D3 Ursodiol [...] Cedeno DPM Date:?10/2023 Generated for Suzanne caraballo/Ligia/Isaacransmitting on:?09/08/2024 10:56 AM EDT History and Physical Notes * [...]
--- OUTSIDE RECORDS SUMMARY | 2024-09-08 10:56 | XMS_ITS ---
Author Organization [facility] Address [address] [place] [address] Care Team Providers Care Box Brander Name Role Phone Joshua KNIGHT, Christian Primary Care Provider Gilberto Hollingsworth [phone] Allergies Allergen (clinical drug ingredient) Drug/Non Drug Allergy documented on EMR Reaction Allergy Type Onset Date Status Lisinopril cough Drug Allergy Active Results Component Value Reference Range Notes Ferritin Reviewed date:07/05/2024 03:39:42 PM Interpretation: Performing Lab:[facility], [address] [place] [id number] Notes/Report: Ferritin 41 10-250 ng/mL REASON FOR [...] 40 MG TAKE 1 CAPSULE BY [facility] TWICE A DAY for 90 Active Ursodiol 500 MG TAKE 2 TABLETS BY [facility] EVERY MORNING AND TAKE 1 TABLET BY [...] Notes Problem 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 Vital Signs Temperature 96.9 degrees Fahrenheit 07/01/19 25 Blood pressure systolic 001 mm Hg 07/01/19 25 Blood pressure diastolic 01 mm Hg 025 Height 65.25 in 07/01/2024 Weight 192 lbs 07/01/2024 BMI 31.7 kg/m2 07/01/2024 Encounters Encounter Location Date Provider Diagnosis [facility] [address] [place] [address] 07/01/2024 Giblerto Hernandez Barretts esophagus without dysplasia K22.70 ; Other cirrhosis of liver K74.69 ; Fatty liver K76.0 ; Iron deficiency anemia, unspecified iron deficiency anemia type D50.9 and Duodenal adenoma D13.2 Assessments Encounter Date Diagnosis (ICD Code) Assessment Notes Treatment Notes Treatment Clinical Notes Section Notes 07/01/2024 Barretts esophagus without dysplasia (ICD-10 - K22.70) 07/01/2024 Other cirrhosis of liver (ICD-10 - K74.69) 07/01/2024 Fatty liver (ICD-10 - K76.0) 07/01/2024 [...] Iron IV infusion if need be. 07/01/2024 Duodenal adenoma (ICD-10 - D13.2) Plan [...] Name:Gilberto Hernandez , 02/02/2025 09:50:00 AM, [address], [address], [place], [address], Progress Notes * RODRIGUEZ, TRENT SDOB:1945 (79 yo F)Acc No.[id number]:07/01/2024 Progress Notes Patient:?JENNIFER TRENT Katie Provider:?Gilberto Hernandez MD :1945???Age:78 Y???Sex:Female D ate:07/01/2024 Address:[address] [place], [place] [id number] Pcp:Christian Lewis MD Subjective: * Chief Complaints: * ???Patient presents today fo r barretts, elevated LFTs * Medical History:? * Surgical History:?Yan fun doplication in 1995--Dr. Uribe Knee surgery Hysterectomy Shoulder surgery Cerebral aneursym clipping via interventional radiology * Hospitalization/Major Diagno stic Procedure:?No Hospitalization History. * Family History:?Father: dece ased, diagnosed with [...] Occupation: Retired. ???Nonsmoker; no sig. alcohol. * Medications:?TakingIron (Rolf allyson Sulfate) 325 (65 Fe) MG Tablet 1 tablet Orally Once a day Valsartan-hydroCHLOROthiazide 160-12.5 MG Tablet 1 tablet Orally Once a day Levothyroxine Sodium 100 MCG Tablet 1 tablet in the morning on an empty stomach Orally Once a day Atorvastatin Calcium 20 MG Tablet 1 tablet Orally Once a day Vitamin D 2000 UNIT Tablet 1 tablet Orally Once a day Ursodiol 500 MG Tablet TAKE 2 TABLETS BY MOUTH EVERY MORNING AND TAKE 1 TABLET BY MOUTH EVERY EVENING Omeprazole 40 MG Capsule Delayed Release TAKE 1 CAPSULE BY MOUTH TWICE A DAY Furosemide 20 MG Tablet TAKE 1 TABLET BY MOUTH EVERY DAY Oral Ferrous Sulfate 324 (65 Fe) MG Tablet Delayed Release TAKE 1 TABLET BY MOUTH EVERY DAY Oral Cyanocobalamin 1000 MCG/ML Solution PLEASE SEE ATTACHED FOR DETAILED DIRECTIONS Injection Cefuroxime Axetil 500 MG Tablet TAKE 1 TABLET BY MOUTH TWICE A DAY Oral Taking Iron (Ferrous Sulfate) 325 (65 Fe) MG Tablet 1 tablet Orally Once a day Taking Valsartan- hydroCHLOROthiazide 160-12.5 MG Tablet 1 tablet Orally Once a day Taking Levothyroxine Sodium 100 MCG Tablet 1 tablet in the morning on an empty stomach Orally Once a day Taking Atorvastatin Calcium 20 MG Tablet 1 tablet Orally Once a day Taking Vitamin D 2000 UNIT Tablet 1 tablet Orally Once a day Taking Ursodiol 500 MG Tablet TAKE 2 TABLETS BY MOUTH EVERY MORNING AND TAKE 1 TABLET BY MOUTH EVERY EVENING Taking Omeprazole 40 MG Capsule Delayed Release TAKE 1 CAPSULE BY MOUTH TWICE A DAY Taking Furosemide 20 MG Tablet TAKE 1 TABLET BY MOUTH EVERY DAY Oral Taking Ferrous Sulfate 324 (65 Fe) MG Tablet Delayed Release TAKE 1 TABLET BY MOUTH EVERY DAY Oral Taking Cyanocobalamin 1000 MCG/ML Solution PLEASE SEE ATTACHED FOR DETAILED DIRECTIONS Injection Taking Cefuroxime Axetil 500 MG Tablet TAKE 1 TABLET BY MOUTH TWICE A DAY Oral * Allergies:?Lisinopril: cough yes[Allergies Verified] Objective: * Vitals:?Wt: 192 lbs, Ht: 65. 25 in, BMI: 31.7 Index, BP: 001/01 mm Hg, Temp: 96.9, Wt-k.09. 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 Plan: * Treatment: ? Value Reference Range ?Ferritin 41 10-250 - ng/mL ?Imaging: US abdomen comp w elastography* sched for 08/07/24 at 9:00 am [facility] dept 2nd floor fasting 8 hrs prior * ?Imaging: US duplex arterial venous comp* Doppler of abdomen -- rule o ut portal vein thrombosissched for 08/10/24 at 8:30 [facility] ultrasound 2nd floor * 2.?Fatty liver?LAB: IRON + IBC (FE) ?LAB: CBC w DIFF ?LAB: Ferritin (Collection Date & Time - 07/03/2024 07:31 AM)* ? Value Reference Range ?Ferritin 41 10-250 - ng/mL ?Imaging: US abdomen comp w elastography* sched for 08/07/24 at 9:00 am [facility] 2nd floor fasting 8 hrs prior * ?Imaging: US duplex arterial venous comp* Doppler of abdomen -- rule o ut portal vein thrombosissched for 08/10/24 at 8:30 [facility] ultrasound 2nd floor * 3.?Iron deficiency anemia, unspecified iron deficiency anemia type?LAB: IRON + IBC (FE) ?LAB: CBC w DIFF ?LAB: Ferritin (Collection Date & Time - 07/03/2024 07:31 AM)* ? Value Reference Range ?Ferritin 41 10-250 - ng/mL ?Imaging: US abdomen comp w elastography* sched for 08/07/24 at 9:00 am [facility] 2nd floor fasting 8 hrs prior * ?Imaging: US duplex arterial venous comp* Doppler of abdomen -- rule o ut portal vein thrombosissched for 08/10/24 at 8:30 [facility] ultrasound 2nd floor * Notes: Start taking the oral Iron twice a day with a stool softener at least once every day. Increase the stool softener to twice a day if you're becoming more constipated on the Iron. Continue the B12 shots. We can always arrange for an Iron IV infusion if need be.?? * Procedure Codes:?1036F TOBAC CO [id number] BP SCR NOT PRFRM REC REASON NOS * Preventive Medicine:? ??Counseling:?Care goal follow-up plan:?Above Normal BMI Follow-up?Dietary management education, guidance, and counseling,?BMI management provided?Yes.? ??Urinary Incontinence:?Urinary Incontinence?Assessment:?Absent,?Plan of care documented:?No, reason not specified.? ??Screenings:?Fall Risk Screening?Fall Risk Assessment:?No falls in the past year,?Screening:?No falls in the past year,?Assessment:?Not performed, no reason specified,?Plan of Care:?Not documented, no reason specified.? * Follow Up:?Fall, 2024 * * Sign off status: Completed true * Provider:?Gilberto Hernandez MD Date:? 025 Generated for Suzanne caraballo/Ligia/eTransmitting on:?09/08/2024 10:55 AM EDT
--- OUTSIDE RECORDS SUMMARY | 2024-09-08 10:56 | XMS_ITS | Patient Health Record ---
Author Organization [facility] Address [address] [place] [id number] Care Team Providers Care Rn Training Name Role Phone Christian Lewis MD Primary Care Provider Gilberto Hollingsworth [phone] Allergies Allergen (clinical drug ingredient) Drug/Non Drug Allergy documented on EMR Reaction Allergy Type Onset Date Status Lisinopril cough Drug Allergy Active Results Component Value Reference Range Notes Ferritin Reviewed date:07/05/2024 03:39:42 PM Interpretation: Performing Lab:[facility], [address] [place] [phone] Notes/Report: Ferritin 41 10-250 ng/mL Pathology Reviewed date:07/01/2024 07:47:55 PM Interpretation: Performing Lab:[facility], [address] [place] [phone] Notes/Report: -- Name: Frances Celestin Age/Sex: 78/F : 1945 Unit#: [id number] Attend Dr: Mauro Santacruz MD Re06/24/24 Status : DIS IN Location: [facility] 473-1 Disch: 06/26/24 -- SPEC : [id number] RECD: 06/26/24 STATUS: AVI FANG NUM: [id number] RICKIE: 06/25/[address] [facility] [address]: Gilberto Hernandez MD ENTERED: 06/26/24 17 SP TYPE: Surgical OTHR DR: Christian Lewis MD, Jaehyun MD ORDERED: HE Stain/3, Gross Micro L4 Diagnosis Descending duodenum, lesion, biopsy: Tubular adenoma; negative for high-grade dysplasia and carcinoma Clinical History Pre-Op Dx: Severe ao rtic valve stenosis Post-Op Dx: Gastropa thy, duodenal polyp, hiatal hernia Microscopic Description Microscopic sections reviewed. Material Received Lesion descending duodenum Gross Description Received in formalin labeled ?lesion descending duodenum? are 3 fragments of vivas-white soft tissue measuring 0.3 -0.4 cm in greatest dimension which are wrapped in lens paper and entirely submitted f or microscopic examination, 3 pieces in cassette [facility] Copies To: Christian Lewis MD [facility] [address] [place] [address] Drive [address] [place] [address] Mauro Santacruz MD [address] [place] [address] Gilberto Hernandez MD [facility] [address] [place] [address] CONTINUED ON NEXT PAGE -- Name: Frances Celestin Age/Sex: 78/F : 1945 Unit#: [id number] Attend Dr: Mauro Santacruz MD Re06/24/24 Status : DIS IN Location: [facility] 473-1 Disch: 06/26/24 -- SPEC : [id number] RECD: 06/26/24 STATUS: AVI FANG NUM: [id number] RICKIE: 06/25/24-[address] [facility] [address]: Gilberto Hernandez MD ENTERED: 06/26/24-01 03 SP TYPE: Surgical OTHR DR: Christian Lewis MD, Jaehyun MD ORDERED: HE Stain/3, Gross Micro L4 -- Signed (si gnature on file) Estefany Robledo 06/29/24 1054 -- END OF REPORT Complete Blood Count Auto Di ff (Not yet reviewed by provider) Interpretation: Performing Lab:[facility], [address] [place] [address] Notes/Report: White Blood Count 3.5 4.8-10.8 X10*3/uL [...] PROFILE Reviewed date:07/05/2024 03:39:35 PM Interpretation: Performing Lab:[facility], [address] [place] [address], [place] [address] Notes/Report: Iron 41 30-160 mcg/dL Total Iron Binding Capacity 312 228-428 mcg/d L Percent Iron Saturation 13 15-50 % Unsaturated Iron Binding 271 US abdomen comp w elastograp hy Reviewed date:08/22/2024 04:09:38 PM Interpretation: Performing Lab: Notes/Report: [address] [address] Ultrasound Report Signed Patient: Mary Lou Celestin MR#: [id number] : 1945 Acct:[id number] Age/Sex: 79 / F ADM Date: 08/05/24 Loc: HO.US Attending Dr: Gilberto Hernandez MD Ordering Physician: Gilberto Hernandez MD Date of Service: 08/05/24 Procedure(s): US abdomen comp w elastography Accession Number(s): [id number] cc: Christian Lewis MD; Gilberto Hernandez MD EXAMINATION: US ABDOMEN COMPLETE WITH LIVER ELASTOGRAPHY HISTORY: FATTY LIVER, IRON DEFICIENCY ANEMIA, TECHNIQUE: Real-time grayscale ultrasound imaging of the abdomen was performed and images were reviewed. COMPARISON: Comparison is made with the prior examination dated 04/30/2023. FINDINGS: Liver: The right lobe of the liver measures 17.8 cm in size. The left lobe of the liver measures 13.4 cm in size. The liver demonstrates coarsened echotexture and a nodular contour, suggestive of cirrhosis. No focal mass or intrahepatic biliary ductal dilatation is identified. There is normal hepatopedal flow in the portal vein. Ultrasound elastography of the liver was performed with 10 separate measurements of the liver parenchyma with the patient in the supine position. Measurements were obtained approximately 2 cm below Jaxon's capsule and perpendicular to the capsule. Images are of satisfactory quality. The median shear wave velocity is 1.04 m/s. The interquartile range/median (IQR/median) is 0.17. Gallbladder and biliary tree: The gallbladder is unremarkable, without evidence of calculi, wall thickening, or pericholecystic fluid. There is no sonographic Elizondo sign. The common bile duct is normal in caliber measuring 7 mm. Kidneys: The right kidney measures 10.8 cm in length. The left kidney measures 10.2 cm in length. The kidneys are unremarkable, without evidence of masses, hydronephrosis, or calculi. Pancreas: The pancreatic head, neck, and body are unremarkable. The pancreatic tail is obscured by bowel gas. Spleen: The spleen is normal in size and contour, measuring 21.4 cm in length. Abdominal aorta and inferior vena cava: The visualized portions of the abdominal aorta and inferior vena cava are normal in caliber. There is no free fluid in the abdomen. US/US abdomen comp w elastography IMPRESSION: Hepatosplenomegaly. Nodular liver contour, suggestive of cirrhosis. The median shear wave velocity in the liver is 1.04 m/s, corresponding to a median liver stiffness of 3.3 kPa. The IQR/median value is 0.17. This is indicative of a poor quality data set, and the estimated liver stiffness may be unreliable. Findings are indicative of a normal elastography value with a low likelihood of severe fibrosis or cirrhosis. REFERENCE: Society of Radiologists in Ultrasound Liver Stiffness Thresholds (2020): LIVER STIFFNESS THRESHOLDS: *Shear wave velocity less than 1.3 m/s (Liver Stiffness equal or less than 5 kPa): High probability of being normal. *Shear wave velocity less than 1.7 m/s (Liver Stiffness less than 9 kPa): In the absence of other known clinical signs, rules out compensated advanced chronic liver disease. *Shear wave velocity between 1.7-2.1 m/s (Liver Stiffness 9-13 kPa): Suggestive of compensated advanced chronic liver disease but need further test for confirmation. *Shear wave velocity between 2.1-2.4 m/s (Liver Stiffness 13-17 kPa): Rules in compensated advanced chronic liver disease. *Shear wave velocity greater than 2.4 m/s (Liver Stiffness over 17 kPa): Suggestive of clinically significant portal hypertension. QUALITY OF DATA SET: *IQR/Median value equal or less than 0.15 implies a quality data set. *IQR/Median value over 0.15 implies a poor quality data set. SIGNIFICANT CHANGE FROM PRIOR EXAM: Significant change if liver stiffness measurement is 10% or greater from prior exam. OTHER CONSIDERATIONS: The stage of liver fibrosis may be overestimated in the setting of acute hepatitis, liver inflammation, elevated liver function tests, hepatic vascular congestion, obstructive cholestasis, non-fasting state, and infiltrative diseases such as amyloidosis and lymphoma. In some patients with NAFLD, the liver stiffness thresholds for compensated advanced chronic liver disease may be lower. In causes other than viral hepatitis and NAFLD, liver stiffness thresholds are not well established. Electronically signed by: Gilberto Thompson MD 08/05/2024 10:27 AM EDT Dictated By: Gilberto Thompson MD Signed By: <Electronically signed by Gilberto Thompson MD in OV> 08/06/24 1231 DD/ 0900 TD/TT: 08/05/24 0945 [employer] Program[employer] Analyst: [address] [address] Ultrasound Report Signed Patient: Johana Celestin MR#: [id number] : 1945 Acct:[id number] Age/Sex: 79 / F ADM Date: 08/05/24 Loc: HO.US Attending Dr: Gilberto Hernandez MD Ordering Physician: Gilberto Hernandez MD Date of Service: 08/05/24 Procedure(s): US abd omen comp w elastography Accession Number(s): [id number] cc: Christian Lewis MD; Gilberto Hernandez MD EXAMINATION: US ABDO MEN COMPLETE WITH LIVER ELASTOGRAPHY HISTORY: FATTY LIVER , IRON DEFICIENCY ANEMIA, TECHNIQUE: Real-time grayscale ultrasound imaging of the abdomen was performed and images were reviewed. COMPARISON: Comparis on is made with the prior examination dated 04/30/2023. FINDINGS: Liver: The right lob e of the liver measures 17.8 cm in size. The left lobe of the liver me asures 13.4 cm in size. The liver demonstrates coarsened echotextur e and a nodular contour, suggestive of cirrhosis. No focal mass or int rahepatic biliary ductal dilatation is identified. There is normal hepa topedal flow in the portal vein. Ultrasound elastogra phy of the liver was performed with 10 separate measurements of the liver parenchyma with the patient in the supine position. Measuremen ts were obtained approximately 2 cm below Jaxon's capsule an d perpendicular to the capsule. Images are of satisfactory quality. The median shear wav e velocity is 1.04 m/s. The interquartile ra nge/median (IQR/median) is 0.17. Gallbladder and bili torin tree: The gallbladder is unremarkable, without evidence of calculi, wall thickening, or pericholecystic fluid. There is no sonographic Mu rphy sign. The common bile duct is normal in caliber measuring 7 mm. Kidneys: The right k idney measures 10.8 cm in length. The left kidney measures 10.2 cm in length. The kidneys are unremarkable, without evidence of masses, hydronephrosis, or calculi. Pancreas: The pancre atic head, neck, and body are unremarkable. The pancreatic tail is o bscured by bowel gas. Spleen: The spleen i s normal in size and contour, measuring 21.4 cm in length. Abdominal aorta and inferior vena cava: The visualized portions of the abdominal aorta and inferior vena cava are normal in caliber. There is no free flu id in the abdomen. U S/US abdomen comp w elastography IMPRESSION: Hepatosplenomegaly. Nodular liver contour, suggestive of cirrhosis. The median shear wav e velocity in the liver is 1.04 m/s, corresponding to a median liver st iffness of 3.3 kPa. The IQR/median value is 0.17. This is indicative o f a poor quality data set, and the estimated liver stiffness may be unreliable. Findings are indicat fadi of a normal elastography value with a low likelihood of severe fibrosis or cirrhosis. REFERENCE: Society of Radiologi sts in Ultrasound Liver Stiffness Thresholds (2019): LIVER STIFFNESS THRESHOLDS: *Shear wave velocity less than 1.3 m/s (Liver Stiffness equal or less than 5 kPa): High pr obability of being normal. *Shear wave velocity less than 1.7 m/s (Liver Stiffness less than 9 kPa): In the absence of other known clinical signs, rules out compensated advanced chronic liver disease. *Shear wave velocity between 1.7-2.1 m/s (Liver Stiffness 9-13 kPa): Suggestive of compen sated advanced chronic liver disease but need further test for confirmation. *Shear wave velocity between 2.1-2.4 m/s (Liver Stiffness 13-17 kPa): Rules in compensated advanced chronic liver disease. *Shear wave velocity greater than 2.4 m/s (Liver Stiffness over 17 kPa): Suggestive of clinically significant portal hypertension. QUALITY OF DATA SET: *IQR/Median value eq ual or less than 0.15 implies a quality data set. *IQR/Median value ov er 0.15 implies a poor quality data set. SIGNIFICANT CHANGE F ROM PRIOR EXAM: Significant change i f liver stiffness measurement is 10% or greater from prior exam. OTHER CONSIDERATIONS: The stage of liver f ibrosis may be overestimated in the setting of acute hepatitis, jennyfer er inflammation, elevated liver function tests, hepatic vascular con gestion, obstructive cholestasis, non-fasting state, and infiltrat fadi diseases such as amyloidosis and lymphoma. In some patients with N AFLD, the liver stiffness thresholds for compensated advanced chronic liver disease may be lower. In causes other than viral hep atitis and NAFLD, liver stiffness thresholds are not well established. 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: US duplex arterial venous co mp Reviewed date:08/22/2024 04:10:36 PM Interpretation: Performing Lab: Notes/Report: [place] [address] Ultrasound Report Signed Patient: Mary Lou Celestin MR#: [id number] : 1945 Acct:[id number] Age/Sex: 79 / F ADM Date: 08/05/24 Loc: HO.US Attending Dr: Gilberto Hernandez MD Ordering Physician: Gilberto Hernandez MD Date of Service: 08/05/24 Procedure(s): US duplex arterial venous comp Accession Number(s): [id number] cc: Christian Lewis MD; Gilberto Hernandez MD EXAMINATION: US ABDOMEN COMPLETE WITH LIVER ELASTOGRAPHY HISTORY: FATTY LIVER, IRON DEFICIENCY ANEMIA, TECHNIQUE: Real-time grayscale ultrasound imaging of the abdomen was performed and images were reviewed. COMPARISON: Comparison is made with the prior examination dated 04/30/2023. FINDINGS: Liver: The right lobe of the liver measures 17.8 cm in size. The left lobe of the liver measures 13.4 cm in size. The liver demonstrates coarsened echotexture and a nodular contour, suggestive of cirrhosis. No focal mass or intrahepatic biliary ductal dilatation is identified. There is normal hepatopedal flow in the portal vein. Ultrasound elastography of the liver was performed with 10 separate measurements of the liver parenchyma with the patient in the supine position. Measurements were obtained approximately 2 cm below Jaxon's capsule and perpendicular to the capsule. Images are of satisfactory quality. The median shear wave velocity is 1.04 m/s. The interquartile range/median (IQR/median) is 0.17. Gallbladder and biliary tree: The gallbladder is unremarkable, without evidence of calculi, wall thickening, or pericholecystic fluid. There is no sonographic Elizondo sign. The common bile duct is normal in caliber measuring 7 mm. Kidneys: The right kidney measures 10.8 cm in length. The left kidney measures 10.2 cm in length. The kidneys are unremarkable, without evidence of masses, hydronephrosis, or calculi. Pancreas: The pancreatic head, neck, and body are unremarkable. The pancreatic tail is obscured by bowel gas. Spleen: The spleen is normal in size and contour, measuring 21.4 cm in length. Abdominal aorta and inferior vena cava: The visualized portions of the abdominal aorta and inferior vena cava are normal in caliber. There is no free fluid in the abdomen. US/US duplex arterial venous comp IMPRESSION: Hepatosplenomegaly. Nodular liver contour, suggestive of cirrhosis. The median shear wave velocity in the liver is 1.04 m/s, corresponding to a median liver stiffness of 3.3 kPa. The IQR/median value is 0.17. This is indicative of a poor quality data set, and the estimated liver stiffness may be unreliable. Findings are indicative of a normal elastography value with a low likelihood of severe fibrosis or cirrhosis. REFERENCE: Society of Radiologists in Ultrasound Liver Stiffness Thresholds (2020): LIVER STIFFNESS THRESHOLDS: *Shear wave velocity less than 1.3 m/s (Liver Stiffness equal or less than 5 kPa): High probability of being normal. *Shear wave velocity less than 1.7 m/s (Liver Stiffness less than 9 kPa): In the absence of other known clinical signs, rules out compensated advanced chronic liver disease. *Shear wave velocity between 1.7-2.1 m/s (Liver Stiffness 9-13 kPa): Suggestive of compensated advanced chronic liver disease but need further test for confirmation. *Shear wave velocity between 2.1-2.4 m/s (Liver Stiffness 13-17 kPa): Rules in compensated advanced chronic liver disease. *Shear wave velocity greater than 2.4 m/s (Liver Stiffness over 17 kPa): Suggestive of clinically significant portal hypertension. QUALITY OF DATA SET: *IQR/Median value equal or less than 0.15 implies a quality data set. *IQR/Median value over 0.15 implies a poor quality data set. SIGNIFICANT CHANGE FROM PRIOR EXAM: Significant change if liver stiffness measurement is 10% or greater from prior exam. OTHER CONSIDERATIONS: The stage of liver fibrosis may be overestimated in the setting of acute hepatitis, liver inflammation, elevated liver function tests, hepatic vascular congestion, obstructive cholestasis, non-fasting state, and infiltrative diseases such as amyloidosis and lymphoma. In some patients with NAFLD, the liver stiffness thresholds for compensated advanced chronic liver disease may be lower. In causes other than viral hepatitis and NAFLD, liver stiffness thresholds are not well established. 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 COMPARISON: Comparis on is made with the prior examination dated 04/30/2023. FINDINGS: Liver: The right lob e of the liver measures 17.8 cm in size. The left lobe of the liver me asures 13.4 cm in size. The liver demonstrates coarsened echotextur e and a nodular contour, suggestive of cirrhosis. No focal mass or int rahepatic biliary ductal dilatation is identified. There is normal hepa topedal flow in the portal vein. Ultrasound elastogra phy of the liver was performed with 10 separate measurements of the liver parenchyma with the patient in the supine position. Measuremen ts were obtained approximately 2 cm below Jaxon's capsule an d perpendicular to the capsule. Images are of satisfactory quality. The median shear wav e velocity is 1.04 m/s. The interquartile ra nge/median (IQR/median) is 0.17. Gallbladder and bili torni tree: The gallbladder is unremarkable, without evidence of calculi, wall thickening, or pericholecystic fluid. There is no sonographic Mu rphy sign. The common bile duct is normal in caliber measuring 7 mm. Kidneys: The right k idney measures 10.8 cm in length. The left kidney measures 10.2 cm in length. The kidneys are unremarkable, without evidence of masses, hydronephrosis, or calculi. Pancreas: The pancre atic head, neck, and body are unremarkable. The pancreatic tail is o bscured by bowel gas. Spleen: The spleen i s normal in size and contour, measuring 21.4 cm in length. Abdominal aorta and inferior vena cava: The visualized portions of the abdominal aorta and inferior vena cava are normal in caliber. There is no free flu id in the abdomen. U S/US duplex arterial venous comp IMPRESSION: Hepatosplenomegaly. Nodular liver contour, suggestive of cirrhosis. The median shear wav e velocity in the liver is 1.04 m/s, corresponding to a median liver st iffness of 3.3 kPa. The IQR/median value is 0.17. This is indicative o f a poor quality data set, and the estimated liver stiffness may be unreliable. Findings are indicat fdai of a normal elastography value with a low likelihood of severe fibrosis or cirrhosis. REFERENCE: Society of Radiologi sts in Ultrasound Liver Stiffness Thresholds (2020): LIVER STIFFNESS THRESHOLDS: *Shear wave velocity less than 1.3 m/s (Liver Stiffness equal or less than 5 kPa): High pr obability of being normal. *Shear wave velocity less than 1.7 m/s (Liver Stiffness less than 9 kPa): In the absence of other known clinical signs, rules out compensated advanced chronic liver disease. *Shear wave velocity between 1.7-2.1 m/s (Liver Stiffness 9-13 kPa): Suggestive of compen sated advanced chronic liver disease but need further test for confirmation. *Shear wave velocity between 2.1-2.4 m/s (Liver Stiffness 13-17 kPa): Rules in compensated advanced chronic liver disease. *Shear wave velocity greater than 2.4 m/s (Liver Stiffness over 17 kPa): Suggestive of clinically significant portal hypertension. QUALITY OF DATA SET: *IQR/Median value eq ual or less than 0.15 implies a quality data set. *IQR/Median value ov er 0.15 implies a poor quality data set. SIGNIFICANT CHANGE F ROM PRIOR EXAM: Significant change i f liver stiffness measurement is 10% or greater from prior exam. OTHER CONSIDERATIONS: The stage of liver f ibrosis may be overestimated in the setting of acute hepatitis, jennyfer er inflammation, elevated liver function tests, hepatic vascular con gestion, obstructive cholestasis, non-fasting state, and infiltrat fadi diseases such as amyloidosis and lymphoma. In some patients with N AFLD, the liver stiffness thresholds for compensated advanced chronic liver disease may be lower. In causes other than viral hep atitis and NAFLD, liver stiffness thresholds are not well established. 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: Reason For Referral No Information Medications Medication [...] Twice a day for 30 days Active Immunizations Vaccine Route Administration Date Status Comme nts Influenza Unknown 02/26/2018 Administered Influenza Unknown 03/20/2019 Administered Influenza Unknown 02/17/2021 Administered Influenza Unknown 02/12/2023 Administered Influenza Unknown 03/10/2024 Administered Influenza Unknown 03/28/2018 Refused Social History Tobacco Use: Social History Observation Description Date Details (start date - stop date) Former Smoker NA - NA Tobacco Use/Smoking Question Answer Notes Patient is a former smoker How long has it been since you last smoked? > 10 years Section Notes: Nonsmoker; no sig. alcohol Nonsmoker; no sig. alcohol Nonsmoker; no sig. alcohol Nonsmoker; no sig. alcohol Nonsmoker; no sig. alcohol Nonsmoker; no sig. alcohol Nonsmoker; no sig. alcohol Nonsmoker; no sig. alcohol Nonsmoker; no sig. alcohol Problems Problem Type SNOMED Code ICD Code Onset Dates Problem Status W/U Status Risk Notes Problem Gastro-esophageal reflux disease without esophagitis (037564556) Gastro-esophageal reflux disease without esophagitis (K21.9) Active confirmed Problem [id number] Encounter for screening for malignant neoplasm of colon (Z12.11) Active confirmed Problem 375103537 History of adenomatous polyp of colon (Z86.010) Active confirmed Problem History of polyp of colon (situation) (215856866) Personal history of colonic polyps (Z86.010) Active confirmed Problem Anemia due to chronic blood loss (disorder) (801780355) Iron deficiency anemia secondary to blood loss (chronic) (D50.0) Active confirmed Problem [id number] 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) Active confirmed Problem Diverticular disease of colon (019129606) Diverticulosis of large intestine without perforation or abscess without bleeding (K57.30) Active confirmed Problem 42147734 Other cirrhosis of liver (K74.69) Active confirmed Problem Screening for malignant neoplasm of rectum (290329365) Encounter for screening for malignant neoplasm of rectum (Z12.12) Active confirmed Problem Duodenitis (02725618) Duodenitis (K29.80) Active confirmed Problem Gastroesophageal reflux disease (241189670) Gastroesophageal reflux disease (K21.9) Active confirmed Problem Iron deficiency anemia (48388893) Iron deficiency anemia (D50.9) Active confirmed Problem 827153894 Gastroesophageal reflux disease without esophagitis (K21.9) Active confirmed Problem 042125396 Elevated liver enzymes (R74.8) Active confirmed Problem 492425457 Barretts esophag us without dysplasia (K22.70) Active confirmed Problem 950235247 Fatty liver (K76.0) Active confirmed Problem Gastric polyp (60349638) Gastric polyp (K31.7) Active confirmed Problem Benign neoplasm of stomach (60824014) Gastric polyps (K31.7) Active confirmed Problem Anemia (983205529) Anemia (D64.9) Active confir med Problem Benign neoplasm of small intestine (92167846) 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 Problem 301443095 Elevated alpha fetoprotein (R77.2) Active confirmed Problem Gastritis (9562718) Gastritis (K29.70) Active c onfirmed Problem 59233476 Iron deficiency anemia, unspecified iron deficiency anemia type (D50.9) Active confirmed Problem Ennis esophagus (257379089) 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) Active confirmed Problem 4453393067327328 Barretts esopha eddie with low grade dysplasia (K22.710) Active confirmed Problem 47356858 Liver fibrosis (K74.0) Active confirmed Problem 662300634 Positive MANDY (antinuclear antibody) (R76.8) Active confirmed Problem 89202925 Liver fibrosis (K74.00) Active confirmed Vital Signs Temperature 96.9 degrees Fahrenheit 07/01/2024 Blood pressure diastolic 01 mm Hg 07/01/2024 Height 65.25 in 07/01/2024 Blood pressure systolic 001 mm Hg 07/01/2024 Weight 192 lbs 07/01/2024 BMI 31.7 kg/m2 07/01/2024 Encounters Encounter Location Date Provider Diagnosis [facility] [address] [place], [place] [phone] 06/25/2024 Gilberto Hernandez [facility] [address] [place] [address] 07/01/2024 Gilberto Hernandez Barretts esophagus without dysplasia K22.70 ; Other cirrhosis of liver K74.69 ; Fatty liver K76.0 ; Iron deficiency anemia, unspecified iron deficiency anemia type D50.9 and Duodenal adenoma D13.2 [facility] [address] [place] [phone] 07/21/2024 Gilberto Hernandez Anemia D64.9 [facility] [address] [place] [address] 03/17/2024 Gilberto Hernandez [facility] [address] [place] [address] 08/12/2024 Gilberto Hernandez Assessments Encounter Date Diagnosis (ICD Code) Assessment Notes Treatment Notes Treatment Clinical Notes Section Notes 07/01/2024 Other cirrhosis of liver (ICD-10 - K74.69) 07/01/2024 Barretts esophagus without dysplasia (ICD-10 - K22.70) 07/21/2024 Anemia (ICD-10 - D64.9) 07/01/2024 Fatty liver (ICD-10 - K76.0) 07/01/2024 [...] adenoma (ICD-10 - D13.2) Plan Of Treatment Pending Test Test Name Order Date Hemoccult Cards (Non-Screening) 03/14/20 21 LIVER PROFILE 03/14/2021 LIVER PROFILE 08/10/2018 LIVER PROFILE 03/27/2022 LIVER PROFILE 02/12/2023 LIVER PROFILE 10/17/2019 IRON + IBC (FE) 08/08/2021 IRON + IBC (FE) 07/21/2024 IRON + IBC (FE) 07/01/2024 CBC w DIFF 10/17/2019 CBC w DIFF 08/08/2021 CBC w DIFF 08/10/2018 CBC w DIFF 03/27/2022 CBC w DIFF 07/21/2024 CBC w DIFF 02/12/2023 CBC w DIFF 07/01/2024 PROTHROMBIN TIME (PT, INR) 10/17/2019 PROTHROMBIN TIME (PT, INR) 03/14/2021 PROTHROMBIN TIME (PT, INR) 08/10/2018 PROTHROMBIN TIME (PT, INR) 03/27/2022 ALPHA-FETOPROTEIN,TUMOR MARKER 11/08/202 2 ALPHA-FETOPROTEIN,TUMOR MARKER 1 ALPHA-FETOPROTEIN,TUMOR MARKER 0 ALPHA-FETOPROTEIN,TUMOR MARKER 3 MRI ABD W&WO CONTRAST 10/17/2019 US ABD 03/27/2022 US ABD 03/14/2021 Complete Blood Count Auto Diff 5 Prothrombin Time INR 02/12/2023 Ferritin 07/21/2024 US abdomen comp w elastography 5 US abdomen complete 02/12/2023 US duplex arterial venous comp 5 Future Test Test Name Order Date UPPER GI ENDOSCOPY 10/23/2013 UPPER GI ENDOSCOPY 07/04/2016 COLONOSCOPY 07/04/2016 UPPER GI ENDOSCOPY 03/28/2018 UPPER GI ENDOSCOPY 02/17/2019 UPPER GI ENDOSCOPY 08/27/2019 UPPER GI ENDOSCOPY 03/14/2021 COLONOSCOPY 03/14/2021 UPPER GI ENDOSCOPY 03/27/2022 COLONOSCOPY 03/27/2022 COLONOSCOPY 02/12/2023 Next Appt Details Provider Name:Gilberto Baer Mary , 02/02/2025 09:50:00 AM, [address], [address], [place], [address], Insurance Providers Payer Name Payer Address Payer Phone Subscriber Number Group Number Insured Name Patient Relationship to Insured Coverage Start Date Coverage End Date [facility] [address] [place] [phone] [id number] MARY LOU CELESTIN Self - patient is the insured Medical (General) History Medical History History ICD Code GERD with Ennis's esophagu s-areas of high and low grade dysplasia seen in Fall of 2009-has been going to [facility] and Dr. Ferrer for ablation Rx of the Ennis's-most recent Rx was 01/2012-biopsies in 11/2011 showed the Ennis's, but no dysplasia Hypothyroidism HTN Hyperlipidemia Tubular adenomas removed from colon in and 2011 Denies VA,DM,CVA,Lung disease,renal dise ase Brain aneurysm with Agram and clipping i n 12/2007 Duodenal tubular adenoma removed in 2009 . Most recent EGD in [facility] in 09/2012--Bx from 35 to 27 cm all neg for Ennis's esophagus nor dysplasia-same HH noted EGD 04/2013 with me at [facility]-- small areas of Ennis's mucosa, but no [...]
--- OUTSIDE RECORDS SUMMARY | 2024-09-08 10:56 | XMS_ITS ---
Author Organization Christian Lewis MD Address [address] [place], [place] [phone] Care Team Providers Care R Developer Name Role Phone Christian Lewis Primary Care Provider Results Component Value Reference Range Notes Complete Blood Count Auto Di ff Reviewed date:07/17/2024 12:39:24 PM Interpretation: Performing Lab:[facility], [address] [place] [phone] Notes/Report: White Blood Count 3.5 4.8-10.8 X10*3/uL [...] Location Date Provider Diagnosis Christian Lewis MD [address] [place] [phone] 07/17/2024 Christian Lewis Gastrointestinal hemorrhage associated with duodenitis K29.81 Assessments Encounter Date Diagnosis (ICD Code) Assessment Notes Treatment Notes Treatment Clinical Notes Section Notes 07/17/2024 Gastrointestinal hemorrhage associated with duodenitis (ICD-10 - K29.81) Plan Of Treatment Next Appt Details Provider Name:Christian taylor, 11/27/2024 07:15:00 AM, [address] [place] [address], [address], [phone], Provider Name:Christian taylor, 12/04/2024 09:30:00 AM, [address] [place] [address], [address], [phone], Progress Notes * Mary Lou CELESTIN SDOB:1945 (79 yo F)Acc No.[id number]:07/17/2024 Progress Note Patient:?Mary Lou CELESTIN Provider:?Christian Lewis MD :1945???Age:79 Y???Sex:Female D ate:07/17/2024 Address:[address] [place] [address] [id number] Subjective: * Chief Complaints: * ???1. CBC. * Medical History:? Objective: * Vitals:? Assessment: * Assessment: 1.?Gastrointestinal hemorrha ge associated with duodenitis - K29.81 (Primary)??? Plan: * Treatment: * Procedure Codes:?90183 VENIP UNCT, ROUTINE* * * The named appointment provid er may or may not be the originator of this progress note, and it is not deemed complete until electronically signed by the appointment provider. Sign off status: Pending * Provider:?Christian Lewis MD Date:?0 07/17/2024 Generated for Suzanne caraballo/Ligia/Derek on:?09/08/2024 10:55 AM EDT
--- OUTSIDE RECORDS SUMMARY | 2024-09-08 10:56 | XMS_ITS | Clinical Summary ---
Author Organization [facility] Address [address] [place] [address] Care Team Providers Care Medical Insurance Claims Processor Name Role Phone Unavailable Primary Care Provider Unavailabl e Social History Tobacco Use Types Packs/Day Years Used Date Smoking Tobacco: Never Assessed Comments Unknown Sex and Gender Information Value Date Recorded Sex Assigned at Not on file Legal Sex Female 3:47 PM EDT Gender Identity Not on file Sexual Orientation [...]
--- OUTSIDE RECORDS SUMMARY | 2024-09-08 10:56 | XMS_ITS | Continuity of Care Document ---
Author Organization [facility] Michael vishnu Address [address] [place] [address] [place] [address]- Care Team Providers Care Algebraist Name Role Phone Christian Lewis MD Primary Care Physician [phone] [place] [facility] [id number] Date(s): 08/27/24 - 09/03/24 [facility] [address] [place] [address] Drive [address] [place] [address]- Attending Physician: Henry Wong MD Referring Physician: Evan Mann MD Encounter Type: Office Visit Allergies, Adverse Reactions, Alerts No Known Allergies Medications Cyanocobalamin = 1,000 mcg, Intramuscular, 0 Refills, Maintenance, 08/04/24 8:30:00 AM EDT, Partial fill upon patient request if the prescription is for a schedule II opioid drug. Start Date: 08/04/24 Status: Ordered Repeat number: 1 ferrous sulfate 325 mg oral enteric coated tablet 325 mg, 1, tablet, By Mouth, 2 times a day, # 100 tablet, Refills 0, Maintenance, 08/04/24 8:29:00 AM EDT, Partial fill upon patient request if the prescription is for a schedule II opioid drug. Start Date: 08/04/24 Status: Ordered Quantity: 100.0 Unit: tablet Repeat number: 1 Lasix 20 mg oral tablet 20 mg, 1, tablet, By Mouth, Daily, # 90 tablet, Refills 0, Tot. Refills 0, Maintenance, 08/04/24 9:54:00 AM EDT, Route to Pharmacy Electronically, [facility], Partial fill upon patient request if the prescription is for a schedule II opioid drug., 168, cm, 08/04/24 8:12:00 EDT, Height,88, kg, 08/04/24 8:12:00 EDT, Dry Weight Start Date: 08/04/24 Status: Ordered Quantity: 90.0 Unit: tablet Repeat number: 1 Levothyroxine = 100 mcg, By Mouth, Daily, 0 Refills, Maintenance, 06/03/12 9:15:22 AM EST Start Date: 06/03/12 Status: Ordered Repeat number: 1 Lipitor 20 mg oral tablet 1 tablet = 20 mg, By Mouth, Daily at bedtime, 0 Refills, Maintenance, 06/03/12 9:19:01 AM EST Start Date: 06/03/12 Status: Ordered Repeat number: 1 omeprazole 40 mg oral enteric coated capsule TAKE 1 CAPSULE BY MOUTH TWICE A DAY Start Date: 08/27/24 Status: Ordered Repeat number: 1 ursodiol 500 mg oral tablet See Instructions, 2 tablets in the morning and 1 tablet at night, 0 Refills, Maintenance, 08/04/24 8:27:00 AM EDT, Partial fill upon patient request if the prescription is for a schedule II opioid drug. Start Date: 08/04/24 Status: Ordered Repeat number: 1 Problem List Condition Confirmation Course Effective Dates Status Health St atus Informant Aneurysm Confirmed Active Vital Signs Most recent to oldest [Reference Range]: 1 Height 168 cm (08/27/24 8:13 AM) Weight 82.7 kg (08/27/24 8:13 AM) Oxygen Saturation [94-100 %] 97 % (08/27/24 8:13 AM) Pulse Rate [55-90 bpm] 98 bpm *H* (08/27/24 8:13 AM) Body Mass Index [18.5-24.99 kg/m2] 29.3 kg/m2 *H* (08/27/24 8:13 AM) Blood Pressure [90-138/55-84 mm Hg] 122/ 80mm Hg (08/27/24 8:13 AM) Respiratory Rate [16-30 br/min] 14 br/mi n *L* (08/27/24 8:13 AM) Temperature [96.8-100.4 DegF] 97 DegF (08/27/24 8:13 AM) Mode of Delivery (Oxygen) Room air (08/27/24 8:13 AM) Blood pressure sites Arm, left (08/27/24 8:13 AM) Temperature Route Oral (08/27/24 8:13 AM) Weight Obtained Via Standing scale (08/27/24 8:13 AM) Social History Social History Type Response Smoking Status Former smoker entered on: 09/02/15 Sex Sex Representation Female (finding) Note * Event Display: [facility] Office Note Authored Date: [id number] OFFICE NOTE DATE: 08/27/2024 REFERRING PHYSICIAN: Dr. Evan Mann REASON FOR REFERRAL: Severe aortic stenosis and coronary artery disease. HISTORY OF PRESENT ILLNESS: The patient is a 79-year-old female who last year was found to have a systolic murmur. An echocardiogram showed [id number]-er-oireja aortic stenosis. Over the past several months, she has become more and more short of breath, but she was found to be severely anemic and required 2 admissions with 3 red blood cell transfusions on one occasion and two red blood cell transfusions on the next. Since she has had these transfusions, her breathing has improved, but she still does get some mild dyspnea on exertion. She denies chest pain, lightheadedness, syncope, orthopnea, or PND. Echocardiogram now shows severe aortic stenosis with preserved left ventricular function. Duyenalso has severe MAC and some degree of mitral stenosis, although not very severe. She went for cardiac catheterization, which revealed a 95% mid RCA lesion and about 70% to 75% proximal LAD stenosis.Due to her anemia, the patient is currently unable to take any antiplatelet therapy. Her anemia workup has not found any source for bleeding; however, her labs actually show pancytopenia with low white blood cell count and platelets as well. She did have a bone marrow biopsy and received the results yesterday, which showed some type of lymphoma. The bark scaler told them that this is not a pressing issue and she should deal with her heart first, although a PET scan is in the works. PAST MEDICAL HISTORY: GERD, lymphoma, hypothyroidism, Ennis's esophagus, hypercholesterolemia, hypertension, aortic stenosis. PAST SURGICAL HISTORY: She has had brain surgery and Yan fundoplication. SOCIAL HISTORY: Remote history of smoking. Occasional alcohol. No drugs. She does live by herself but remains active, still driving, taking care of the house, shopping, and doing yard work. FAMILY HISTORY: Negative for premature coronary artery disease. MEDICATIONS: She is on Lasix, atorvastatin, cyanocobalamin, esomeprazole, ferrous sulfate, levothyroxine, Ursodiol and omeprazole. ALLERGIES: No known drug allergies. REVIEW OF SYSTEMS: As per HPI; otherwise, remainder are negative. PHYSICAL EXAMINATION: GENERAL APPEARANCE: Obese, older female sitting in the chair in no acute distress. VITAL SIGNS: Temperature is 97, heart rate 98 beats per minute, blood pressure 122/80 mmHg, respirations 14, oxygen saturation 97% on room air. Height is 168 cm. Weight is 82.7 kg. HEENT: Normocephalic and atraumatic. Extraocular movements are intact. Pupils are equal, round, andreactive to light. NECK: No JVD. No bruits. No cervical or supraclavicular lymphadenopathy. CARDIAC: Regular rate and rhythm. She does have a 3 to 4/6 systolic ejection murmur heard throughout the precordium. LUNGS: Lungs are clear to auscultation. ABDOMEN: Abdomen is soft and nontender. No organomegaly. Positive bowel sounds. EXTREMITIES: No clubbing, cyanosis, or edema. She does have some small varicose veins. NEUROLOGIC: Neuro is grossly nonfocal. LABORATORY STUDIES: White count is 2.9, hematocrit 33, platelets 66, creatinine 0.7. IMAGING: Cardiac cath and echo are as described. She did have a CT scan as well that appears to show adequate iliofemoral access for the purposes of TAVR and her ascending aorta is essentially free of calcium. ASSESSMENT AND PLAN: This is a 79-year-old female with severe aortic stenosis, multivessel coronarydisease, and a newly diagnosed lymphoma likely causing her pancytopenia. I do think she would benefit from aortic valve replacement and coronary revascularization. The question is how to accomplish this. For surgical AVR CABG, her SDS risk calculation is 3.1%, although I would put it as slightly higher than this given this new lymphoma diagnosis and her pancytopenia. I would estimate it is closerto 5% or 6% putting her in an intermediate risk category. An alternative would be to do TAVR and stenting for her coronary disease; however, at this point, she is unable to take antiplatelet medication. I think we need to have a heart team discussion to determine the best approach. If she is trulyunable to take antiplatelet medications, then surgery might be the better option; however, again, Ithink we need to have a heart team discussion. Once we have this, we will call the patient to discuss further. Thank you for this referral. Dictated by: Henry Wong MD Signing Clinician: Henry Wong MD Dictated: 08/27/2024 09:00:32 Transcribed: 04:35:47 AM Transcribed by: ESPINOZA DocID: [id number] PRELIMINARY REPORT UNLESS MANUALLY/ELECTRONICALLY SIGNED cc: Evan Mann M.D. [facility] [address] [place] [address] [address] [place], [address] * Jolie Granger: PERFORM Event Display: Patient Education/Instruction Authored Date: [id number] Ambulatory Adult Visit Summary [facility] [address] [place] [address] [address] [place] [address] Name: TRENT RODRIGUEZ : 1945?? Visit: 08/27/2024 07:53?? Ambulatory Visit Instructions ?? Your Care Team Primary Care Provider Christian Lewis MD? This Visit Provider Henry Wong MD Vitals Signs Temperature: 97 DegF Height: 168 cm Pulse Rate:??98 bpm??High Weight: 82.7 kg Respiratory Rate:??14 br/min??Low Body Mass Index:??29.3 kg/m2??High Systolic Blood Pressure: 122 mm Hg Body surface area: 1.96 Diastolic Blood Pressure: 80 mm Hg ?? Oxygen Saturation: 97 % ?? Medications The list below reflects the information in our records and provided by you today along with any changes made during this visit. Please continue your medications until treatment is completed or stopped by your provider. If this is different from the information you have or there are other questions,please contact the prescribing provider. What How Much When Instructions Unchanged Atorvastatin (Lipitor 20 mg oral tablet) 1 tab(s) Oral Daily at Bedtime Unchanged Cyanocobalamin 1,000 Microgram Intramuscular Unchanged Ferrous Sulfate (ferrous sulfate 325 mg oral enteric coated tablet) 1 tab(s) Oral Twice a day Unchanged Furosemide (Lasix 20 mg oral tablet) 1 tab(s) Oral Daily Unchanged Levothyroxine 100 Microgram Oral Daily Unchanged Omeprazole (omeprazole 40 mg oral enteric coated capsule) TAKE 1 CAPSULE BY MOUTH TWICE A DAY ?? Unchanged Ursodiol (ursodiol 500 mg oral tablet) See instructions 2 tablets in the morning and 1 tablet at night ?? Medications and Immunizations Administered Medications Given During Visit No medications given during this visit.?? Allergies (NKA means No Known Allergies) NKA Common Emergency Awareness Tips IS IT A STROKE? Act FAST and Check for these signs: FACE Does the face look uneven? ARM Does one arm drift down? SPEECH Does their speech sound strange? TIME Call at any sign of stroke ?? Heart Attack Signs Chest discomfort: Most heart attacks involve discomfort in the center of the chest and lasts more than a few minutes, or goes away and comes back. It can feel like uncomfortable pressure, squeezing, fullness or pain. Discomfort in upper body: Symptoms can include pain or discomfort in one or both arms, back, neck, jaw or stomach. Shortness of breath: With or without discomfort. Other signs: Breaking out in a cold sweat, nausea, or lightheaded. Remember, MINUTES DO MATTER. If you experience any of these heart attack warning signs, call to get immediate medical attention! ?? Smoking can increase your chances of developing chronic health problems and can cause harmful effects to other family members in your house. If you smoke, you are strongly encouraged to quit. Please call [facility] at [phone] or 8-343-812MoveEZ ([phone]) or log in to [email or web address] for referrals to smoking cessation programs. ?? The National Suicide Prevention Hotline is available 10/12 if you or someone you know needs to find a reason to keep living. By calling 9-005-723-The [facility] (8055) you'll be connected to a skilled, trained counselor at a crisis center in your area. [facility] Player [facility] Portal You can view and manage your care through the patient portal or by using a health care lorrie of your choosing. [employer] is a website that allows you to securely view your medical information including your hospital discharge summary, office visit summaries, medications and follow-up visits. You can also request appointments, renew medications, and request access to your medical information using a health care lorrie of your choosing, or just ask a question. You can enroll at [email or web address] or register during your next office visit. [facility], in keeping with [facility] guidance, no longer requires face masks for staff, patientsor visitors in most situations. Similiar to time spent indoors at other locations, there is the chance that you were exposed to repiratory viruses during your time with us (such as flu or COVID-19). If you develop symptoms concerning for a viral respiratory infection, please seek testing (and treatment if indicated) from your medical provider or home test kit. ?? Disclaimer: The information provided is of a general nature and is intended to be used in conjunction with the recommendations and advice of your health care practitioner. Every effort has been made to ensure that the information provided is accurate and complete at the time it is provided to you however, as your needs change, or, as new information becomes available, different or additional instructions may be required. ?? If you have questions, please consult with your primary care provider or pharmacist, as appropriate. This information is not intended to serve as substitution for assessment and evaluation by a qualified health care provider. If you do not have a primary care provider, you may find a [facility] provider by calling [facility] Link at [phone]. Patient Care team information Care Team Personnel Name: Christian Lewis MD Position: Reference Physician Member Role: PCP Address: [address] [place] [address] [place] [address]- Telecom: [phone] Care Team Related Persons Name: AMOR ROSENBERG Name: ANNE GREEN Insurance Providers Guarantor name: TRENT RODRIGUEZ Player [facility] Information #: 1 Payer: [facility] [employer] ADV HMO Member Number: [id number] Policy Number: NA Group Number: [id number] Health Plan Information #: 2 Payer: [facility] [employer] ADV HMO Member Number: [id number] Policy Number: NA Group Number: [id number]
--- OUTSIDE RECORDS SUMMARY | 2024-09-08 10:57 | XMS_ITS ---
Author Organization [facility] Address [address] [facility] [address] [place] [phone] Care Team Providers Care Lump Maker Name Role Phone Christian Lewis MD Primary Care Provider Gilberto Hollingsworth Unavailable [phone] REASON FOR VISIT refill of script Medications Medication SIG (Take, Route, Frequency, Duration) Notes Start Date End Date Status Iron (Ferrous Sulfate) 325 (65 Fe) MG 1 tablet Orally Twice a day for 30 days Active Problems Problem Type SNOMED Code ICD Code Onset Dates Problem Status W/U Status Risk Notes Problem Anemia (251909376) Anemia (D64.9) Active confirmed Encounters Encounter Location Date Provider Diagnosis [facility] [address] [facility] [address] [place] [phone] 07/21/2024 Gilberto Hernandez Anemia D64.9 Assessments Encounter [...] Provider Name:Gilberto Hernandez , 02/02/2025 09:50:00 AM, [address] [place] [address], [address], [place], [phone], Progress Notes * TRENT RODRIGUEZ SDOB:1945 (79 yo F)Acc No.[id number]:07/21/2024 Patient:?TRENT RODRIGUEZ :1945???Age:79 Y???Sex:Female Address:[address] [place] [address], [place] [address] * Refills? Refill Iron (Ferrous Sulfate) Tablet, [...]
--- OUTSIDE RECORDS SUMMARY | 2024-09-08 10:57 | XMS_ITS ---
Author Organization Christian Lewis MD Address [address] [place] [phone] Care Team Providers Care Ribbon Weaver Name Role Phone Christian Lewis Primary Care Provider REASON FOR VISIT HCC Risk Codes 12/04 Encounters Encounter Location Date Provider Diagnosis Christian Lewis MD [facility] [address] [place] [phone] 08/03/2024 Christian Lewis Plan Of Treatment Next Appt Details Provider Name:Christian Martin ier, 11/27/2024 07:15:00 AM, [address] [place] [address], [address], [phone], Provider Name:Christian Zavala Mario ier, 12/04/2024 09:30:00 AM, [address] [place] [address], [address] [place] [address], [phone], Progress Notes * Mary Lou CELESTIN SDOB:1945 (79 yo F)Acc No.[id number]:08/03/2024 Patient:?Mary Lou CELESTIN :1945???Age:79 Y???Sex:Female Address:[address] [place] [address], [place] [address] * * Date:?
--- OUTSIDE RECORDS SUMMARY | 2024-09-08 10:57 | XMS_ITS ---
Author Organization [facility] Address [address] [place] [address] Care Team Providers Care Theoretical Physics Teacher Name Role Phone Christian Lewis MD Primary Care Provider Maite Mayfield [phone] REASON FOR VISIT AUDIO DIRECTOR cx same day- car trouble Encounters Encounter Location Date Provider Diagnosis [facility] [address] [place] [address] 07/24/2023 Maite Cedeno Plan Of Treatment No Information Progress Notes * Mary Lou CELESTIN SDOB:1945 (78 yo F)Acc No.[id number]:07/24/2023 Patient:?Mary Lou Celestin :1945???Age:78 Y???Sex:Female Address:[address] [facility] [place], [address] * true * Date:? Generated for Printi ng/Carylg/eTransmitting on:?09/08/2024 10:57 AM EDT
--- OUTSIDE RECORDS SUMMARY | 2024-09-08 10:57 | XMS_ITS | Patient Health Record ---
Author Organization Christian Lewis MD Address [address] [place], [place] [id number] Care Team Providers Care Respiratory Equipment Assistant Name Role Phone Chritsian Lewis Primary Care Provider [phone] Allergies Allergen (clinical drug ingredient) Drug/Non Drug Allergy documented on EMR Reaction Allergy Type Onset Date Status Lisinopril cough Drug Allergy Active Results Component Value Reference Range Notes Complete Blood Count Auto Di ff Reviewed date:11/26/2023 12:58:22 PM Interpretation: Performing Lab:[facility], [address] [place] [phone] Notes/Report: White Blood Count 3.1 4.8-10.8 X10*3/uL [...] 0.0-0.2 /100WBC Neutrophils Absolute Auto 1.3 2.0-8.3 x10*3/uL Imm Gran Abs Auto 0.01 0.00-0.03 X10*3/uL Lymphocytes Absolute Auto 1.3 1.2-4.9 X10*3/uL Monocytes Absolute Auto 0.4 0.1-1.2 X10*3/uL Eosinophils Absolute Auto 0.1 0.0-0.4 X10*3/uL Basophils Absolute Auto 0.0 0.0-0.2 X10*3/uL NRBC Abs Auto 0.000 0.0-0.012 X10*3/uL Comprehensive Casey. Panel Fa st Reviewed date:11/26/2023 01:06:33 PM Interpretation: Performing Lab:[facility], [address] [place] [phone] Notes/Report: Sodium 141 135-145 mmol/L Potassium 4.1 3.3-5.1 mmol/L Chloride 108 96-108 mmol/L Carbon Dioxide 27 22-29 mmol/L Anion Gap 10 12-20 Blood Urea Nitrogen 14 9-16 mg/dL Creatinine 0.73 0.5-1.4 mg/dL Estimated Glomerular Filt Rate > 60 NOTE: For -Northern [place] individuals, multiply the result by 1.210. Chronic [...] PROFILE Reviewed date:11/26/2023 12:57:52 PM Interpretation: Performing Lab:[facility], [address] [place] [phone] Notes/Report: Iron 25 30-160 mcg/dL Total Iron Binding Capacity 308 228-428 mcg/dL Percent Iron Saturation 8 15-50 % Unsaturated Iron Binding 283 Lipid Panel Reviewed date:11/26/2023 12:59:34 PM Interpretation: Performing Lab:[facility], [address] [place] [phone] Notes/Report: Triglycerides 65 <150 mg/dL Desirable Triglyceride: [...] Reviewed date:12/05/2023 08:50:36 AM Interpretation:heather 12/02 Performing Lab:[facility], [address] [place] [phone] Notes/Report: Vitamin D 25-OH Total 14.5 >30 [...] Random Reviewed date:11/26/2023 12:57:41 PM Interpretation: Performing Lab:[facility], [address] [place] [phone] Notes/Report: Creatinine Urine 146.01 Microalbumin Urine 12.0 Microalbum/Creatinine Ratio Ur 8.2 <30 ug/mg cr Albumin/Creatinine Ratio Reference Ranges: Normal: < 30 ug/mg creatinine Microalbuminuria: 30 - 300 ug/mg creatinine Clinical Albuminuria: > 300 ug/mg creatinine Hemoglobin A1c Reviewed date:11/26/2023 12:56:13 PM Interpretation: Performing Lab:[address] [phone] Notes/Report: Hemoglobin A1c % 4.9 <6.0 % [...] average glucose, using the formula of the O2A-Cgjzsab Average Glucose study (ADAG), Diabetes Care, Vol.31,#8, Dec. 2007 UA ClnCatch+Micro w/rflx Cul t Reviewed date:11/26/2023 01:08:43 PM Interpretation: Performing Lab:[facility], [address] [place] [phone] Notes/Report: Urine, Clean Catch Color Urine Yellow Appearance Urine Clear PH 6.0 5.0-9.0 Glucose Urine UA Negative Negative mg/dL Urine Blood Negative Negative Specific Celina - Urine 1.020 1.005-1.025 Urine Protein Negative Neg-Trace mg/dL Urine Ketones Negative Negative mg/dL Nitrite Urine Negative Negative Leukocyte Esterase Urine Small (1+) Negative RBC Urine 0-2 0-2 /HPF WBC Urine 0-5 0-5 /HPF Squamous Epithelial Cell Urine 6-10 0-2 /HPF Bacteria Urine None Seen None Seen Hyaline Casts Urine 0-2 0-2 /LPF Complete Blood Count Auto Di ff Reviewed date:05/29/2024 05:42:16 PM Interpretation: Performing Lab:[facility], [address] [place] [phone] Notes/Report: White Blood Count 3.5 4.8-10.8 X10*3/uL [...] 0.0-0.2 /100WBC Neutrophils Absolute Auto 1.6 2.0-8.3 x10*3/uL Imm Gran Abs Auto 0.01 0.00-0.03 X10*3/uL Lymphocytes Absolute Auto 1.4 1.2-4.9 X10*3/uL Monocytes Absolute Auto 0.4 0.1-1.2 X10*3/uL Eosinophils Absolute Auto 0.1 0.0-0.4 X10*3/uL Basophils Absolute Auto 0.0 0.0-0.2 X10*3/uL NRBC Abs Auto 0.020 0.0-0.012 X10*3/uL IRON PROFILE Reviewed date:05/28/2024 05:57:56 PM Interpretation: Performing Lab:[facility], [address] [place] [phone] Notes/Report: Iron 30 30-160 mcg/dL Total Iron Binding Capacity 318 228-428 mcg/dL Percent Iron Saturation 9 15-50 % Unsaturated Iron Binding 288 TSH reflex Free T4 Reviewed date:05/28/2024 05:56:34 PM Interpretation: Performing Lab:[facility], [address] [place] [phone] Notes/Report: TSH reflex Free T4 4.87 0.32-4.0 uIU/mL Complete Blood Count Auto Di ff Reviewed date:07/17/2024 12:39:24 PM Interpretation: Performing Lab:[facility], [address] [place] [phone] Notes/Report: White Blood Count 3.5 4.8-10.8 X10*3/uL [...] 0.0-0.2 /100WBC Neutrophils Absolute Auto 2.0 2.0-8.3 x10*3/uL Imm Gran Abs Auto 0.02 0.00-0.03 X10*3/uL Lymphocytes Absolute Auto 1.1 1.2-4.9 X10*3/uL Monocytes Absolute Auto 0.3 0.1-1.2 X10*3/uL Eosinophils Absolute Auto 0.1 0.0-0.4 X10*3/uL Basophils Absolute Auto 0.0 0.0-0.2 X10*3/uL NRBC Abs Auto 0.000 0.0-0.012 X10*3/uL UA ClnCatch+Micro w/rflx Cul t Reviewed date:07/24/2024 12:06:18 PM Interpretation: Performing Lab:[facility], [address] [place] [phone] Notes/Report: Urine, Clean Catch Color Urine Yellow Appearance Urine Clear PH 6.0 5.0-9.0 Glucose Urine UA Negative Negative mg/dL Urine Blood Negative Negative Specific Celina - Urine 1.015 1.005-1.025 Urine Protein Negative [...] Notes/Report: Negative Occult Blood, Stool, Guaiac Neg Hold Gold Reviewed date:11/26/2023 01:00:34 PM Interpretation: Performing Lab:[facility], [address] [place] [phone] Notes/Report: Hold Gold See Note Specimen held untested for 24 hours; Call to request Chemistry testing. Urine Culture Reviewed date:11/27/2023 08:05:38 PM Interpretation: Performing Lab:[facility], [address] [place] [phone] Notes/Report: Urine Culture Report Result Urine Culture < 10,000 cfu/ml MM tomosynthesis diagnostic BI Reviewed date:02/24/2024 10:15:18 AM Interpretation: Performing Lab: Notes/Report: [facility] [address] [place] [address] Mammography Report Signed Patient: Mary Lou Celestin MR#: [id number] : 1945 Acct:[id number] Age/Sex: 78 / F ADM Date: 02/24/24 Loc: HO.MAMMO Attending Dr: Christian Lewis MD Ordering Physician: Christian Lewis MD Results: 1Ne gative Date of Service: 02/24/24 Follow Up: 1 Year From Orig ina Mammogram Procedure(s): MM tomosynthesis diagnostic BI Accession Number(s): [id number] cc: Christian Lewis MD EXAMINATION: MM DIAGNOSTIC [...] signed by Anthony Kelly MD in OV> 02/24/24 0953 DD/ 9 TD/TT: 02/24/2445 Air Support Operations Operator: [facility] [address] [place] [address] Mammography Report Signed Patient: Mary Lou Celestin MR#: [id number] : 1945 Acct:[id number] Age/Sex: 78 / F ADM Date: 02/24/24 Loc: HO.MAMMO Attending Dr: Christian Lewis MD Ordering Physician: Christian Lewis MD Results: 1Ne gative Date of Service: 02/24/24 Follow Up: 1 Year From [facility] ina Mammogram Procedure(s): MM tomosynthesis diagnostic BI Accession Number(s): [id number] cc: Christian Lewis MD EXAMINATION: MM DIAGNOSTIC DIGITA L BREAST TOMOSYNTHESIS, BILATERAL US BREAST LIMITED, LEFT MAMMOGRAPHY: CLINICAL INFORMATION: Due for screening. U gigi arriving for screening patient informed technologist of a palpable focus x1 month with mild tenderness in the far upper outer quadrant left breast. This finding is marked with a lead marker by the technologist. History of breast CA in paternal and maternal grandmother, age unknown, however patient stat es older . COMPARISON: Mammography: 02/19/20 23, 02/12/2022, 02/08/2021, 02/03/2020, and dating back to 2014. TECHNIQUE: Digital breast tomosynthesis is performed in both the craniocaudal and mediolateral oblique views along with computer-aided detection (CAD). Synthesized 2D image s are generated from the tomosynthesis. In addition to standard views, added full field 3-D right CC view, left exaggerated 3-D lateral CC view, full field 3-D left ML view, and spot compression 3-D left MLO and CC views were obtained. FINDINGS: The breasts are almo st entirely fatty (ACR BI-RADS breast composition Category a). There are no suspici ous masses, suspicious grouped calcifications, or areas of architectur al distortion in either breast. The parenchymal pattern is stable fr om prior exams. There is no skin or [...] Selected archived documentation. FINDINGS: LEFT BREAST: There i s predominantly fatty breast tissue. No suspicious mass is seen. There is no pathologic acoustic shadowing. No cystic abnormality. No architectural abnormalities. No ultrasonographic correlate to the focus of palpable concern. MM/MM tomosynthesis diagnostic BI IMPRESSION: There are no finding s in either breast suspicious for malignancy. Area [...] due date for their next mammogram. Electronically pilar d by: Anthony Kelly MD 02/24/2024 09:53 AM EDT Dictated By: Anthony Kelly MD Signed By: <Electronically signed by Anthony Kelly MD in OV> 02/24/24 0953 DD/ TD/TT: 02/24/2445 Air Support Operations Operator: US breast LT limited mamm on ly Reviewed date:02/24/2024 10:16:05 AM Interpretation: Performing Lab: Notes/Report: [facility] [address] [place] [address] Ultrasound Report Signed Patient: Mary Lou Celestin MR#: [id number] : 1945 Acct:[id number] Age/Sex: 78 / F ADM Date: 02/24/24 Loc: HO.MAMMO Attending Dr: Christian Lewis MD Ordering Physician: Christian Lewis MD Date of Service: 02/24/24 Procedure(s): US breast LT limited mamm only Accession Number(s): [id number] cc: Christian Lewis MD EXAMINATION: MM DIAGNOSTIC [...] in OV> 02/24/24952 DD/ 9 TD/TT: 02/24/24917 Air Support Operations Operator: [facility] [address] [place] [address] Ultrasound Report Signed Patient: Mary Lou Celestin MR#: [id number] : 1945 Acct:[id number] Age/Sex: 78 / F ADM Date: 02/24/24 Loc: HO.MAMMO Attending Dr: Christian Lewis MD Ordering Physician: Christian Lewis MD Date of Service: 02/24/24 Procedure(s): US neena ast LT limited mamm only Accession Number(s): [id number] cc: Christian Lewis MD EXAMINATION: MM DIAGNOSTIC DIGITA L BREAST TOMOSYNTHESIS, BILATERAL US BREAST LIMITED, LEFT MAMMOGRAPHY: CLINICAL INFORMATION: Due for screening. U gigi arriving for screening patient informed technologist of a palpable focus x1 month with mild tenderness in the far upper outer quadrant left breast. This finding is marked with a lead marker by the technologist. History of breast CA in paternal and maternal grandmother, age unknown, however patient stat es older . COMPARISON: Mammography: 02/19/20 23, 02/12/2022, 02/08/2021, 02/03/2020, and dating back to 2014. TECHNIQUE: Digital breast tomosynthesis is performed in both the craniocaudal and mediolateral oblique views along with computer-aided detection (CAD). Synthesized 2D image s are generated from the tomosynthesis. In addition to standard views, added full field 3-D right CC view, left exaggerated 3-D lateral CC view, full field 3-D left ML view, and spot compression 3-D left MLO and CC views were obtained. FINDINGS: The breasts are almo st entirely fatty (ACR BI-RADS breast composition Category a). There are no suspici ous masses, suspicious grouped calcifications, or areas of architectur al distortion in either breast. The parenchymal pattern is stable fr om prior exams. There is no skin or [...] Selected archived documentation. FINDINGS: LEFT BREAST: There i s predominantly fatty breast tissue. No suspicious mass is seen. There is no pathologic acoustic shadowing. No cystic abnormality. No architectural abnormalities. No ultrasonographic correlate to the focus of palpable concern. US/US breast LT limited mamm only IMPRESSION: There are no finding s in either breast suspicious for malignancy. Area [...] due date for their next mammogram. Electronically pilar d by: Anthony Kelly MD 02/24/2024 09:53 AM EDT Dictated By: Anthony Kelly MD Signed By: <Electronically signed by Anthony Kelly MD in OV> 02/24/24952 DD/ 9 TD/TT: 02/24/24917 Air Support Operations Operator: Free T4 (Free Thyroxine) Reviewed date:05/28/2024 05:58:04 PM Interpretation: Performing Lab:[facility], [address] [place] [phone] Notes/Report: Free T4 (Free Thyroxine) 1.07 0.71-1.85 ng/dL Shabana Hidalgo Reviewed date:05/28/2024 12:21:58 PM Interpretation: Performing Lab:[facility], [address] [place] [phone] Notes/Report: Shabana Hidalgo See Note Specimen held untested for 24 hours; Call to request Chemistry testing. Complete Blood Count no Diff Reviewed date:06/24/2024 08:14:18 PM Interpretation: Performing Lab:[facility], [address] [place] [phone] Notes/Report: White Blood Count 3.5 4.8-10.8 X10*3/uL Red Blood Count 2.20 4.20-5.50 X10*6/uL Hemoglobin 4.9 12.0-16.0 g/dl Results of H H called to and read back by DR SKAGGS on 06/23/24 at 1848 by ZAIDA. Hematocrit 16.7 37.0-47.0 % Mean Corpuscular Volume 75.9 80.0-98.0 fL Mean Corpuscular Hemoglobin 22.3 27.0-33.0 pg Mean Corpuscular HGB Conc 29.3 31.0-35.0 g/dl Red Cell Distribution Width 15.1 11.0-16.0 % Platelet Count 89 160-400 X10*3/uL Mean Platelet Volume 11.3 9.4-12.3 fL NRBC Pct Auto 0.0 0.0-0.2 /100WBC NRBC Abs Auto 0.000 0.0-0.012 X10*3/uL Complete Blood Count Auto Di ff Reviewed date:07/24/2024 01:01:29 PM Interpretation:07-24-24 Performing Lab:[facility], [address] [place] [phone] Notes/Report: White Blood Count 5.9 4.8-10.8 X10*3/uL Red Blood Count 2.52 4.20-5.50 X10*6/uL Hemoglobin 5.7 12.0-16.0 g/dl Results of HGB called to and read back by AVIS Results of HGB called to and read back by AVIS Results of HGB called to and read back by AVIS on 06/23/24 at 1554 by ALBERTINA. on 06/23/24 at 1554 by ALBERTINA. on 06/23/24 at 1554 by ALBERTINA. Hematocrit 19.1 37.0-47.0 % Results of HCT called to and read back by AVIS Results of HCT called to and read back by AVIS Results of HCT called to and read back by AVIS on 06/23/24 at 1555 by ALBERTINA. on 06/23/24 at 1555 by ALBERTINA. on 06/23/24 at 1555 by ALBERTINA. Mean Corpuscular Volume 75.8 80.0-98.0 fL Mean Corpuscular Hemoglobin 22.6 27.0-33.0 pg Mean Corpuscular HGB Conc 29.8 31.0-35.0 g/dl Red Cell Distribution Width 15.1 11.0-16.0 % Platelet Count 123 160-400 X10*3/uL Confirmed by smear. Confirmed by smear. Confirmed by smear. Mean Platelet Volume 11.7 9.4-12.3 fL Neutrophils Percent Auto 68.5 45-73 % Imm Gran Pct Auto 0.5 0.0-0.4 % Lymphocytes Percent Auto 20.8 20-40 % Monocytes Percent Auto 8.0 2-11 % Eosinophils Percent Auto 1.7 0-4 % Basophils Percent Auto 0.5 0-2 % NRBC Pct Auto 0.0 0.0-0.2 /100WBC Neutrophils Absolute Auto 4.0 2.0-8.3 x10*3/uL Imm Gran Abs Auto 0.03 0.00-0.03 X10*3/uL Lymphocytes Absolute Auto 1.2 1.2-4.9 X10*3/uL Monocytes Absolute Auto 0.5 0.1-1.2 X10*3/uL Eosinophils Absolute Auto 0.1 0.0-0.4 X10*3/uL Basophils Absolute Auto 0.0 0.0-0.2 X10*3/uL NRBC Abs Auto 0.000 0.0-0.012 X10*3/uL White Blood Count 5.9 4.8-10.8 X10*3/uL Red Blood Count 2.52 4.20-5.50 X10*6/uL Hemoglobin 5.7 12.0-16.0 g/dl Results of HGB called to and read back by AVIS Results of HGB called to and read back by AVIS Results of HGB called to and read back by AVIS on 06/23/24 at 1554 by ALBERTINA. on 06/23/24 at 1554 by ALBERTINA. on 06/23/24 at 1554 by ALBERTINA. Hematocrit 19.1 37.0-47.0 % Results of HCT called to and read back by AVIS Results of HCT called to and read back by AVIS Results of HCT called to and read back by AVIS on 06/23/24 at 1555 by ALBERTINA. on 06/23/24 at 1555 by ALBERTINA. on 06/23/24 at 1555 by ALBERTINA. Mean Corpuscular Volume 75.8 80.0-98.0 fL Mean Corpuscular Hemoglobin 22.6 27.0-33.0 pg Mean Corpuscular HGB Conc 29.8 31.0-35.0 g/dl Red Cell Distribution Width 15.1 11.0-16.0 % Platelet Count 123 160-400 X10*3/uL Confirmed by smear. Confirmed by smear. Confirmed by smear. Mean Platelet Volume 11.7 9.4-12.3 fL Neutrophils Percent Auto 68.5 45-73 % Imm Gran Pct Auto 0.5 0.0-0.4 % Lymphocytes Percent Auto 20.8 20-40 % Monocytes Percent Auto 8.0 2-11 % Eosinophils Percent Auto 1.7 0-4 % Basophils Percent Auto 0.5 0-2 % NRBC Pct Auto 0.0 0.0-0.2 /100WBC Neutrophils Absolute Auto 4.0 2.0-8.3 x10*3/uL Imm Gran Abs Auto 0.03 0.00-0.03 X10*3/uL Lymphocytes Absolute Auto 1.2 1.2-4.9 X10*3/uL Monocytes Absolute Auto 0.5 0.1-1.2 X10*3/uL Eosinophils Absolute Auto 0.1 0.0-0.4 X10*3/uL Basophils Absolute Auto 0.0 0.0-0.2 X10*3/uL NRBC Abs Auto 0.000 0.0-0.012 X10*3/uL White Blood Count 5.9 4.8-10.8 X10*3/uL Red Blood Count 2.52 4.20-5.50 X10*6/uL Hemoglobin 5.7 12.0-16.0 g/dl Results of HGB called to and read back by AVIS Results of HGB called to and read back by AVIS Results of HGB called to and read back by AVIS on 06/23/24 at 1554 by ALBERTINA. on 06/23/24 at 1554 by ALBERTINA. on 06/23/24 at 1554 by ALBERTINA. Hematocrit 19.1 37.0-47.0 % Results of HCT called to and read back by AVIS Results of HCT called to and read back by AVIS Results of HCT called to and read back by AVIS on 06/23/24 at 1555 by ALBERTINA. on 06/23/24 at 1555 by ALBERTINA. on 06/23/24 at 1555 by ALBERTINA. Mean Corpuscular Volume 75.8 80.0-98.0 fL Mean Corpuscular Hemoglobin 22.6 27.0-33.0 pg Mean Corpuscular HGB Conc 29.8 31.0-35.0 g/dl Red Cell Distribution Width 15.1 11.0-16.0 % Platelet Count 123 160-400 X10*3/uL Confirmed by smear. Confirmed by smear. Confirmed by smear. Mean Platelet Volume 11.7 9.4-12.3 fL Neutrophils Percent Auto 68.5 45-73 % Imm Gran Pct Auto 0.5 0.0-0.4 % Lymphocytes Percent Auto 20.8 20-40 % Monocytes Percent Auto 8.0 2-11 % Eosinophils Percent Auto 1.7 0-4 % Basophils Percent Auto 0.5 0-2 % NRBC Pct Auto 0.0 0.0-0.2 /100WBC Neutrophils Absolute Auto 4.0 2.0-8.3 x10*3/uL Imm Gran Abs Auto 0.03 0.00-0.03 X10*3/uL Lymphocytes Absolute Auto 1.2 1.2-4.9 X10*3/uL Monocytes Absolute Auto 0.5 0.1-1.2 X10*3/uL Eosinophils Absolute Auto 0.1 0.0-0.4 X10*3/uL Basophils Absolute Auto 0.0 0.0-0.2 X10*3/uL NRBC Abs Auto 0.000 0.0-0.012 X10*3/uL C ORRECTED REPORT C ORRECTED REPORT C ORRECTED REPORT RETIC Reviewed date:06/24/2024 07:58:43 PM Interpretation: Performing Lab:[facility], [address] [place] [phone] Notes/Report: Reticulocytes Absolute 0.058 0.026-0.0 95 X10*6/uL Immature Retic Fraction 18.4 3.0-15.9 % Retic HGB Equivalent 16.7 30.0-35.0 pg Reticulocyte Percent 2.6 0.5-1.8 % Pathologist Review - CBC Reviewed date:06/24/2024 08:00:48 PM Interpretation: Performing Lab:[facility], [address] [place] [phone] Notes/Report: Pathologist Review - CBC Chronic microcytic hypochromic anemia and thrombocytopenia, consistent with the patient's probable GI bleed, low iron, and low B12. Prothrombin Time INR Reviewed date:06/23/2024 07:23:21 PM Interpretation: Performing Lab:[facility], [address] [place] [phone] Notes/Report: Prothrombin Time 12.7 10.9-12.4 SEC INTERNATIONAL NORM RATIO 1.1 0.9-1.1 INTERNATIONAL NORMALIZED RATIO (INR) REFERENCE RANGES Reference Range For patients not on anticoagulant therapy: 0.9 - 1.1 INR ranges for oral anticoagulant therapy: For prevention and treatment of venous thrombosis and pulmonary embolism: 2.0 - 3.0 For acute myocardial infarction with aspirin therapy: 2.0 - 3.0 For acute myocardial infarction without aspirin therapy: 3.0 - 4.0 For patients with mechanical prosthetic heart valves: 2.5 - 3.5 Comprehensive Met. Panel Reviewed date:06/24/2024 08:01:48 PM Interpretation: Performing Lab:[facility], [address] [place] [phone] Notes/Report: Sodium 139 135-145 mmol/L Potassium 3.4 3.3-5.1 mmol/L Chloride 105 96-108 mmol/L Carbon Dioxide 23 22-29 mmol/L Anion Gap 14 12-20 Blood Urea Nitrogen 21 9-16 mg/dL Creatinine 0.92 0.5-1.4 mg/dL Creatinine Clr Calc Pharmacy 55.0 Provided height and weight: 167.64 cm, 83.915 kg. eGFR (calculated from the MDRD study equation) and eCrCl (calculated from the Cockcroft-Gault equation) are based on different parameters and may not yield comparable results. If eCrCl result is absurd, please check patient's height/weight. Estimated Glomerular Filt Rate 59 Chronic Kidney Disease: Estimated GFR < 60 mL/min/1.73m2 Severe Kidney Disease: Estimated GFR < 15 mL/min/1.73m2 Glucose Random 129 60-115 mg/dL Calcium 9.2 8.4-10.2 mg/dL Bilirubin Total 0.5 0.0-1.0 mg/dL Aspartate Amino Transferase 22 5-31 U/L Alanine Aminotransferase 8 0-31 U/L Total Protein 6.5 6.5-8.0 g/dL Albumin Level 3.8 3.5-5.0 g/dL Alkaline Phosphatase 53 39-117 U/L Magnesium Reviewed date:06/24/2024 08:01:22 PM Interpretation: Performing Lab:[address] [phone] Notes/Report: Magnesium 1.7 1.6-2.6 mg/dL IRON PROFILE Reviewed date:06/24/2024 08:00:23 PM Interpretation: Performing Lab:[address] [phone] Notes/Report: Iron 14 30-160 mcg/dL Total Iron Binding Capacity 340 228-428 mcg/dL Percent Iron Saturation 4 15-50 % Unsaturated Iron Binding 326 Ferritin Reviewed date:06/24/2024 07:59:10 PM Interpretation: Performing Lab:[address] [phone] Notes/Report: Ferritin 10 10-250 ng/mL Troponin-I High Sensitivity Reviewed date:06/23/2024 07:16:34 PM Interpretation: Performing Lab:[address] [phone] Notes/Report: Troponin-I High Sensitivity 212.8 <3.5-17.0 ng/L Critical value for test(s): TROP Results called to and read back by: AVIS Person calling: KENNETH Date: 06/23/24 Time: 1460 The [place]opes high sensitivity Troponin-I results should be used in conjunction with other diagnostic information such as ECG, clinical observations and information, and patient symptoms to aid in the diagnosis of NM. B Type Natriuretic Peptide Reviewed date:06/23/2024 07:16:53 PM Interpretation: Performing Lab:[address] [phone] Notes/Report: B Type Natriuretic Peptide 441 <100 pg/mL For those patients who are being treated with Natrecor (nesiritide, recombinant BNP), BNP testing should be performed at least two hours post treatment in order to ensure that only endogenous levels of BNP are detected. Urine Culture Reviewed date:06/25/2024 01:01:20 PM Interpretation: Performing Lab:[facility], [address] [place] [phone] Notes/Report: O:ESCCOL Escherichia coli Urine Culture Quant Urine Culture > 100,000 cfu/mL Ampicillin <=2 Cefazolin (Urine) <=1 Cefepime <=0.12 Ceftriaxone <=0.25 Ciprofloxacin <=0.06 Gentamicin <=1 Nitrofurantoin <=16 Trimethoprim/Sulfametho xazole <=20 SLIDE REVIEW Reviewed date:06/24/2024 08:04:16 PM Interpretation: Performing Lab:[facility], [address] [place] [phone] Notes/Report: SLIDE REVIEW VERIFIED Type and Screen Reviewed date:06/24/2024 07:58:52 PM Interpretation: Performing Lab:[facility], [address] [place] [phone] Notes/Report: mL/HR Rate to transfuse BBK Product 350 Results at Issue Units as of 06/23/24 1811 ... Test View Group: Most Recent HGB HCT Results LABORATORY Date Time Test Result Flag Normal Range 06/23/24 1801 HGB PENDING RECEIPT 12.0-16.0 g/dl 06/23/24 1544 HGB 5.7 #*L 12.0-16.0 g/dl Results of HGB called to and read back by AVIS on 06/23/24 at 1554 by ALBERTINA. 06/23/24 1801 HCT PENDING RECEIPT 37.0-47.0 % 06/23/24 1544 HCT 19.1 #*L 37.0-47.0 % Results of HCT called to and read back by AVIS on 06/23/24 at 1555 by ALBERTINA. Results at Issue Units as of 06/23/24 2233 ... Test View Group: Most Recent HGB HCT Results LABORATORY Date Time Test Result Flag Normal Range 06/23/24 1831 HGB 4.9 *L 12.0-16.0 g/dl Results of H H called to and read back by DR SKAGGS on 06/23/24 at 1848 by ZAIDA. 06/23/24 1831 HCT 16.7 *L 37.0-47.0 % Results at Issue Units as of 06/24/24 1103 ... Test View Group: Most Recent HGB HCT Results LABORATORY Date Time Test Result Flag Normal Range 06/24/24 0649 HGB 7.6 L 12.0-16.0 g/dl 06/24/24 0649 HCT 24.1 L 37.0-47.0 % Hgb < 7 gm No Blood Type ON Antibody Screen NEGATIVE UA ClnCatch+Micro w/rflx Cul t Reviewed date:06/25/2024 01:01:34 PM Interpretation: Performing Lab:[facility], [address] [place] [address], [place] [address] Notes/Report: [id number] Urine, Clean Catch Color Urine Yellow Appearance Urine Cloudy PH 6.0 5.0-9.0 Glucose Urine UA Negative Negative mg/dL Urine Blood Moderate (2+) Negative Specific Celina - Urine 1.020 1.005-1.025 Urine Protein 100 (2+) Neg-Trace mg/dL Urine Ketones Negative Negative mg/dL Nitrite Urine Positive Negative Leukocyte Esterase Urine Moderate (2+) Negative RBC Urine 11-20 0-2 /HPF WBC Urine >50 0-5 /HPF Squamous Epithelial Cell Urine 0-2 0-2 /HPF Bacteria Urine 4+ None Seen Hyaline Casts Urine 3-5 0-2 /LPF Red Blood Cells Reviewed date:06/24/2024 07:58:59 PM Interpretation: Performing Lab:[facility], [address] [place] [phone] Notes/Report: Red Blood Cells [id number] ON RC Red Blood Cells TRANSFUSED 06/23/24 1810 Red Blood Cells [id number] ON RC Red Blood Cells TRANSFUSED 06/23/24 2232 Red Blood Cells [id number] ON RC Red Blood Cells TRANSFUSED 06/24/[address] gi bleed abd pel wo/w con Reviewed date:06/24/2024 08:00:12 PM Interpretation: Performing Lab: Notes/Report: [address] [address] [address] Scan Report Signed Patient: Mary Lou Celestin MR#: [id number] : 1945 Acct:[id number] Age/Sex: 78 / F ADM Date: 06/23/24 Loc: .ED Attending Dr: Ordering Physician: Kleber Skaggs MD Date of Service: 06/23/24 Procedure(s): CT gi bleed abd pel wo/w IVcon Accession Number(s): [id number] cc: Christian Lewis MD; Kleber Skaggs MD Report Number: [id number]: Total DLP = 1740.00 mGy-cm CLINICAL HISTORY: significant anemia, heme positive stool CT abdomen and pelvis with and without contrast. GI bleeding study. Comparison: Abdominal ultrasound dated 04/30/2023. Discussion: Diffuse interstitial thickening and architectural distortion of the bilateral lower lobes may represent chronic interstitial lung disease. Moderate-sized hiatal hernia. Gallbladder and the solid organs are unremarkable. Bowel loops are nondilated. Moderate amount of stool is noted within the right colon colon is otherwise mostly contracted. Scattered diverticulosis of the descending and sigmoid colon. No fluid levels or hypodensities noted throughout the small or large bowel loops. Pelvic structures are intact. Small fat only containing umbilical hernia. Moderate multilevel spondylosis of the thoracolumbar spine. Impression: No acute disease within the abdomen or pelvis. No evidence of active GI hemorrhage. Moderate hiatal hernia with changes related to gastric bypass surgery. Diffuse interstitial thickening of the lung bases, may represent chronic interstitial lung disease. This document has been electronically signed by: Keyanna Piedra MD on 06/23/2024 22:39:08 Dictated By: Keyanna Piedra MD Signed By: <Electronically signed by Keyanna Piedra MD in OV> 06/23/242239 DD/ 38 TD/TT: 06/23/242238 [employer] Operator: [place] [address] CT Scan Report Signed Patient: Mary Lou Celestin MR#: [id number] : 1945 Acct:[id number] Age/Sex: 78 / F ADM Date: 06/23/24 Loc: .ED Attending Dr: Ordering Physician: Kleber Skaggs MD Date of Service: 06/23/24 Procedure(s): CT gi bleed abd pel wo/w IVcon Accession Number(s): [id number] cc: Christian Lewis MD; Kleber Skaggs MD Report Number: [id number]: Total DLP = 1740.00 mGy-cm CLINICAL HISTORY: significant anemia, heme positive stool CT abdomen and pelvi s with and without contrast. GI bleeding study. Comparison: Abdomina l ultrasound dated 04/30/2023. Discussion: Diffuse interstitial thickening and architectural distortion of the bilateral lower lobe s may represent chronic interstitial lung disease. Moderate-sized hiata l hernia. Gallbladder and the solid organs are unremarkable. Bowel loops are nondilated. Moderate amount of stool is noted within the right colon colon is otherwise mostly contracted. Scattered diverticulosis of the descending an d sigmoid colon. No fluid levels or hypodensities noted throughout the small or large bowel loops. Pelvic structures ar e intact. Small fat only containing umbilical hernia. Moderate multilevel spondylosis of the thoracolumbar spine. Impression: No acute disease wit hin the abdomen or pelvis. No evidence of active GI hemorrhage. Moderate hiatal lillian ia with changes related to gastric bypass surgery. Diffuse interstitial thickening of the lung bases, may represent chronic interstitial lung disease. This document has be en electronically signed by: Keyanna Piedra MD on 06/23/2024 22:39:08 Dictated By: Keyanna Piedra MD Signed By: <Electronically signed by Keyanna Piedra MD in OV> 06/23/242239 DD/ 38 TD/TT: 06/23/242238 [employer] Operator: XR chest 1V Reviewed date:06/23/2024 07:16:24 PM Interpretation: Performing Lab: Notes/Report: [address] [address] XRay Report Signed Patient: Mary Lou Celestin MR#: [id number] : 1945 Acct:[id number] Age/Sex: 78 / F ADM Date: 06/23/24 Loc: .ED Attending Dr: Ordering Physician: Kleber Skaggs MD Date of Service: 06/23/24 Procedure(s): XR chest 1V Accession Number(s): [id number] cc: Christian Lewis MD; Kleber Skaggs MD CLINICAL HISTORY: chest pain and dyspnea 1 view chest x-ray Comparison: None Findings: There are surgical clips overlying the left mid lung. No consolidative process. Peribronchial thickening is present. Heart size is normal. No acute fracture. IMPRESSION: There is peribronchial thickening. This document has been electronically signed by: Tia Roach MD on 06/23/2024 17:30:40 Dictated By: Tia Roach MD Signed By: <Electronically signed by Tia Roach MD in OV> 06/23/241731 DD/ 29 TD/TT: 06/23/241729 [employer] Operator: [address] [address] XRay Report Signed Patient: Mary Lou Celestin MR#: [id number] : 1945 Acct:[id number] Age/Sex: 78 / F ADM Date: 06/23/24 Loc: .ED Attending Dr: Ordering Physician: Kleber Skaggs MD Date of Service: 06/23/24 Procedure(s): XR janine st 1V Accession Number(s): [id number] cc: Christian Lewis MD; Kleber Skaggs MD CLINICAL HISTORY: ch est pain and dyspnea 1 view chest x-ray Comparison: None Findings: There are surgical clips overlying the left mid lung. No consolidative process. Peribronchi al thickening is present. Heart size is normal. No acute fracture. IMPRESSION: There is peribronchi al thickening. This document has be en electronically signed by: Tia Roach MD on 06/23/2024 17:30:40 Dictated By: Tia Roach MD Signed By: <Electronically signed by Tia Roach MD in OV> 06/23/241731 DD/ 29 TD/TT: 06/23/241729 [employer] Operator: Troponin-I High Sensitivity Reviewed date:06/23/2024 07:14:31 PM Interpretation: Performing Lab:[facility], [address] [place] [phone] Notes/Report: Troponin-I High Sensitivity 203.1 <3.5-17.0 ng/L Critical value for test(s): HSTNL Results called to and read back by: AVIS Person calling: [facility] Date: 06/23/24 Time: 1857 [employer] [place]opes high sensitivity Troponin-I results should be used in conjunction with other diagnostic information such as ECG, clinical observations and information, and patient symptoms to aid in the diagnosis of NM. Complete Blood Count Auto Di ff Reviewed date:06/24/2024 08:13:35 PM Interpretation: Performing Lab:[facility], [address] [place] [phone] Notes/Report: White Blood Count 4.6 4.8-10.8 X10*3/uL Red Blood Count 3.01 4.20-5.50 X10*6/uL Hemoglobin 7.6 12.0-16.0 g/dl Hematocrit 24.1 37.0-47.0 % Mean Corpuscular Volume 80.1 80.0-98.0 fL Mean Corpuscular Hemoglobin 25.2 27.0-33.0 pg Mean Corpuscular HGB Conc 31.5 31.0-35.0 g/dl Red Cell Distribution Width 16.7 11.0-16.0 % Platelet Count 89 160-400 X10*3/uL Mean Platelet Volume 11.9 9.4-12.3 fL Neutrophils Percent Auto 68.4 45-73 % Imm Gran Pct Auto 0.4 0.0-0.4 % Lymphocytes Percent Auto 20.6 20-40 % Monocytes Percent Auto 7.8 2-11 % Eosinophils Percent Auto 2.4 0-4 % Basophils Percent Auto 0.4 0-2 % NRBC Pct Auto 0.0 0.0-0.2 /100WBC Neutrophils Absolute Auto 3.2 2.0-8.3 x10*3/uL Imm Gran Abs Auto 0.02 0.00-0.03 X10*3/uL Lymphocytes Absolute Auto 1.0 1.2-4.9 X10*3/uL Monocytes Absolute Auto 0.4 0.1-1.2 X10*3/uL Eosinophils Absolute Auto 0.1 0.0-0.4 X10*3/uL Basophils Absolute Auto 0.0 0.0-0.2 X10*3/uL NRBC Abs Auto 0.000 0.0-0.012 X10*3/uL Hemoglobin and Hematocrit Reviewed date:06/24/2024 08:13:51 PM Interpretation: Performing Lab:[address] [address] Notes/Report: Hemoglobin 7.1 12.0-16.0 g/dl Hematocrit 22.9 37.0-47.0 % Comprehensive Met. Panel Reviewed date:06/24/2024 08:12:56 PM Interpretation: Performing Lab:[address] [address] Notes/Report: Sodium 138 135-145 mmol/L Potassium 3.8 3.3-5.1 mmol/L Chloride 107 96-108 mmol/L Carbon Dioxide 24 22-29 mmol/L Anion Gap 11 12-20 Blood Urea Nitrogen 18 9-16 mg/dL Creatinine 0.77 0.5-1.4 mg/dL Creatinine Clr Calc Pharmacy 66.0 Provided height and weight: 167.64 cm, 84.9 kg. eGFR (calculated from the MDRD study equation) and eCrCl (calculated from the Cockcroft-Gault equation) are based on different parameters and may not yield comparable results. If eCrCl result is absurd, please check patient's height/weight. Estimated Glomerular Filt Rate > 60 Chronic Kidney Disease: Estimated GFR < 60 mL/min/1.73m2 Severe Kidney Disease: Estimated GFR < 15 mL/min/1.73m2 Glucose Random 108 60-115 mg/dL Calcium 8.8 8.4-10.2 mg/dL Bilirubin Total 0.8 0.0-1.0 mg/dL Aspartate Amino Transferase 24 5-31 U/L Alanine Aminotransferase 9 0-31 U/L Total Protein 5.8 6.5-8.0 g/dL Albumin Level 3.5 3.5-5.0 g/dL Alkaline Phosphatase 49 39-117 U/L Vitamin B12 and Folate Reviewed date:06/24/2024 08:10:23 PM Interpretation: Performing Lab:[address] [address] Notes/Report: Vitamin B12 151 200-900 pg/mL NORMAL 200-900 PG/ML INDETERMINATE 160-199 PG/ML DEFICIENT < 160 PG/ML Folate 10.4 > or = 4.0 ng/mL Reference Values: > or = 4.0 ng/mL < 4.0 ng/mL suggests folate deficiency Methotrexate, aminopterin and folinic acid (leucovorin) are chemotherapeutic agents whose molecular structures are similar to folate; therefore, the [employer] folate assay cannot be used for patients using these drugs. Parietal Cell Antibody Reviewed date:07/01/2024 05:42:15 PM Interpretation: Performing Lab:[address] [address] Notes/Report: Parietal Cell Antibody <=20.0 <=20.0 Unit Reference Range: <= 20.0 Negative 20.1 - 24.9 Equivocal >= 25.0 Positive Anti-gastric parietal cell antibodies (Anti-GPA) were previously tested for by indirect immunofluorescence (IF) using mouse stomach as a substrate. Identification of the specific antibody target as H+/K+ ATPase protein (a gastric proton pump) has led to the development of an BONIFACIO based assay. Antibodies to this protein are present in approximately 80% of patients with pernicious anemia and a small percentage of general adult population. The latter percentage increases with age and may reflect the presence of atrophic gastritis. A negative test does not exclude a diagnosis of pernicious anemia. A test for intrinsic factor blocking antibody (IFab) may provide serological evidence in support of the diagnosis in some of these patients. THIS TEST WAS PERFORMED AT: [employer]/[address] [address] ROSSY CHIN MD,PHD Complete Blood Count Auto Di ff Reviewed date:06/25/2024 07:55:45 AM Interpretation: Performing Lab:[facility], [address] [place] [phone] Notes/Report: White Blood Count 4.0 4.8-10.8 X10*3/uL Red Blood Count 3.21 4.20-5.50 X10*6/uL Hemoglobin 8.1 12.0-16.0 g/dl Hematocrit 25.6 37.0-47.0 % Mean Corpuscular Volume 79.8 80.0-98.0 fL Mean Corpuscular Hemoglobin 25.2 27.0-33.0 pg Mean Corpuscular HGB Conc 31.6 31.0-35.0 g/dl Red Cell Distribution Width 17.1 11.0-16.0 % Platelet Count 81 160-400 X10*3/uL Mean Platelet Volume 11.5 9.4-12.3 fL Neutrophils Percent Auto 72.4 45-73 % Imm Gran Pct Auto 0.5 0.0-0.4 % Lymphocytes Percent Auto 15.2 20-40 % Monocytes Percent Auto 8.4 2-11 % Eosinophils Percent Auto 3.0 0-4 % Basophils Percent Auto 0.5 0-2 % NRBC Pct Auto 0.5 0.0-0.2 /100WBC Neutrophils Absolute Auto 2.9 2.0-8.3 x10*3/uL Imm Gran Abs Auto 0.02 0.00-0.03 X10*3/uL Lymphocytes Absolute Auto 0.6 1.2-4.9 X10*3/uL Monocytes Absolute Auto 0.3 0.1-1.2 X10*3/uL Eosinophils Absolute Auto 0.1 0.0-0.4 X10*3/uL Basophils Absolute Auto 0.0 0.0-0.2 X10*3/uL NRBC Abs Auto 0.020 0.0-0.012 X10*3/uL Comprehensive Met. Panel Reviewed date:06/25/2024 07:55:15 AM Interpretation: Performing Lab:[address] [address] Notes/Report: Sodium 137 135-145 mmol/L Potassium 3.3 3.3-5.1 mmol/L Chloride 107 96-108 mmol/L Carbon Dioxide 24 22-29 mmol/L Anion Gap 9 12-20 Blood Urea Nitrogen 15 9-16 mg/dL Creatinine 0.68 0.5-1.4 mg/dL Creatinine Clr Calc Pharmacy 74.8 Provided height and weight: 167.64 cm, 84.9 kg. eGFR (calculated from the MDRD study equation) and eCrCl (calculated from the Cockcroft-Gault equation) are based on different parameters and may not yield comparable results. If eCrCl result is absurd, please check patient's height/weight. Estimated Glomerular Filt Rate > 60 Chronic Kidney Disease: Estimated GFR < 60 mL/min/1.73m2 Severe Kidney Disease: Estimated GFR < 15 mL/min/1.73m2 Glucose Random 111 60-115 mg/dL Calcium 8.5 8.4-10.2 mg/dL Bilirubin Total 0.9 0.0-1.0 mg/dL Aspartate Amino Transferase 26 5-31 U/L Alanine Aminotransferase 6 0-31 U/L Total Protein 5.5 6.5-8.0 g/dL Albumin Level 3.3 3.5-5.0 g/dL Alkaline Phosphatase 47 39-117 U/L B Type Natriuretic Peptide Reviewed date:06/25/2024 12:57:23 PM Interpretation: Performing Lab:[facility], [address] [place] [phone] Notes/Report: B Type Natriuretic Peptide 534 <100 pg/mL For those patients who are being treated with Natrecor (nesiritide, recombinant BNP), BNP testing should be performed at least two hours post treatment in order to ensure that only endogenous levels of BNP are detected. Pathology Reviewed date:06/29/2024 12:33:30 PM Interpretation: Performing Lab:[facility], [address] [place] [phone] Notes/Report: --- Name: Frances Celestin Age/Sex: 78/F : 1945 Unit#: [id number] Attend Dr: Mauro Santacruz MD Re06/24/24 Status : DIS IN Location: [facility] 473-1 Disch: 06/26/24 --- SPEC : [id number] RECD: 06/26/24 STATUS: AVI FANG NUM: [id number] RICKIE: 06/25/24-[address] [facility] DR: Gilberto Cheema MD ENTERED: 06/26/24-08 17 SP TYPE: Surgical OTHR DR: Christian Lewis MD, Jaehyun MD ORDERED: HE Stain/3, Gross Micro L4 Diagnosis Descending duodenum, lesion, biopsy: Tubular adenoma; negative for high-grade dysplasia and carcinoma Clinical History Pre-Op Dx: Severe aortic valve stenosis Post-Op Dx: Gastropathy, duodenal polyp, hiatal hernia Microscopic Description Microscopic sections reviewed. Material Received Lesion descending duodenum Gross Description Received in formalin labeled ?lesion descending duodenum? are 3 fragments of vivas-white soft tissue measuring 0.3-0.4 cm in greatest dimension which are wrapped in lens paper and entirely submitted f or microscopic examination, 3 pieces in cassette [facility]. [facility] Copies To: Christian Lewis MD [facility] [address] [place] [address] Mauro Santacruz MD [address] [place] [address] Gilberto Cheema MD [facility] [address] [place] [address] CONTINUED ON NEXT PAGE --- Name: Frances Celestin Age/Sex: 78/F : 1945 Unit#: [id number] Attend Dr: Mauro Santacruz MD Re06/24/24 Statu s: DIS IN Location: [facility] 473-1 Disch: 06/26/24 --- SPEC : [id number] RECD: 06/26/24 STATUS: AVI FANG NUM: [id number] RICKIE: 06/25/24-[address] [facility] DR: Gilberto Cheema MD ENTERED: 06/26/24- 17 SP TYPE: Surgical OTHR DR: Christian Lewis MD, Jaehyun MD ORDERED: MIGUEL Dunn/Bism[place] Neil L4 --- Signed (signature on file) Estefany Meena 06/29/24 1054 --- END OF REPORT Complete Blood Count Auto Di ff Reviewed date:06/26/2024 02:19:58 PM Interpretation: Performing Lab:[facility], [address] [place] [phone] Notes/Report: White Blood Count 3.4 4.8-10.8 X10*3/uL Red Blood Count 3.11 4.20-5.50 X10*6/uL Hemoglobin 7.9 12.0-16.0 g/dl Hematocrit 24.8 37.0-47.0 % Mean Corpuscular Volume 79.7 80.0-98.0 fL Mean Corpuscular Hemoglobin 25.4 27.0-33.0 pg Mean Corpuscular HGB Conc 31.9 31.0-35.0 g/dl Red Cell Distribution Width 17.6 11.0-16.0 % Platelet Count 81 160-400 X10*3/uL Mean Platelet Volume 11.4 9.4-12.3 fL Neutrophils Percent Auto 56.5 45-73 % Imm Gran Pct Auto 0.3 0.0-0.4 % Lymphocytes Percent Auto 27.4 20-40 % Monocytes Percent Auto 11.6 2-11 % Eosinophils Percent Auto 3.6 0-4 % Basophils Percent Auto 0.6 0-2 % NRBC Pct Auto 0.0 0.0-0.2 /100WBC Neutrophils Absolute Auto 1.9 2.0-8.3 x10*3/uL Imm Gran Abs Auto 0.01 0.00-0.03 X10*3/uL Lymphocytes Absolute Auto 0.9 1.2-4.9 X10*3/uL Monocytes Absolute Auto 0.4 0.1-1.2 X10*3/uL Eosinophils Absolute Auto 0.1 0.0-0.4 X10*3/uL Basophils Absolute Auto 0.0 0.0-0.2 X10*3/uL NRBC Abs Auto 0.000 0.0-0.012 X10*3/uL Comprehensive Met. Panel Reviewed date:06/26/2024 10:43:53 AM Interpretation: Performing Lab:[address] [address] Notes/Report: Sodium 138 135-145 mmol/L Potassium 3.3 3.3-5.1 mmol/L Chloride 106 96-108 mmol/L Carbon Dioxide 26 22-29 mmol/L Anion Gap 9 12-20 Blood Urea Nitrogen 13 9-16 mg/dL Creatinine 0.67 0.5-1.4 mg/dL Creatinine Clr Calc Pharmacy 75.9 Provided height and weight: 167.64 cm, 84.9 kg. eGFR (calculated from the MDRD study equation) and eCrCl (calculated from the Cockcroft-Gault equation) are based on different parameters and may not yield comparable results. If eCrCl result is absurd, please check patient's height/weight. Estimated Glomerular Filt Rate > 60 Chronic Kidney Disease: Estimated GFR < 60 mL/min/1.73m2 Severe Kidney Disease: Estimated GFR < 15 mL/min/1.73m2 Glucose Random 107 60-115 mg/dL Calcium 8.6 8.4-10.2 mg/dL Bilirubin Total 0.7 0.0-1.0 mg/dL Aspartate Amino Transferase 25 5-31 U/L Alanine Aminotransferase 10 0-31 U/L Total Protein 5.3 6.5-8.0 g/dL Albumin Level 3.1 3.5-5.0 g/dL Alkaline Phosphatase 44 39-117 U/L Magnesium Reviewed date:06/26/2024 10:43:34 AM Interpretation: Performing Lab:[address] [address] Notes/Report: Magnesium 1.7 1.6-2.6 mg/dL B Type Natriuretic Peptide Reviewed date:06/26/2024 10:43:25 AM Interpretation: Performing Lab:[address] [address] Notes/Report: B Type Natriuretic Peptide 704 <100 pg/mL For those patients who are being treated with Natrecor (nesiritide, recombinant BNP), BNP testing should be performed at least two hours post treatment in order to ensure that only endogenous levels of BNP are detected. IRON PROFILE Reviewed date:07/03/2024 12:33:32 PM Interpretation: Performing Lab:[address] [address] Notes/Report: Iron 41 30-160 mcg/dL Total Iron Binding Capacity 312 228-428 mcg/dL Percent Iron Saturation 13 15-50 % Unsaturated Iron Binding 271 Ferritin Reviewed date:07/03/2024 12:33:21 PM Interpretation: Performing Lab:[address] [address] Notes/Report: Ferritin 41 10-250 ng/mL Urine Culture Reviewed date:07/26/2024 02:52:40 PM Interpretation: Performing Lab:[address] [address] Notes/Report: Urine Culture Report Result Urine Culture < 10,000 cfu/ml Complete Blood Count Auto Di ff Reviewed date:07/27/2024 06:07:45 PM Interpretation: Performing Lab:[address] [address] Notes/Report: White Blood Count 2.7 4.8-10.8 X10*3/uL Red Blood Count 3.05 4.20-5.50 X10*6/uL Hemoglobin 7.9 12.0-16.0 g/dl Hematocrit 26.3 37.0-47.0 % Mean Corpuscular Volume 86.2 80.0-98.0 fL Mean Corpuscular Hemoglobin 25.9 27.0-33.0 pg Mean Corpuscular HGB Conc 30.0 31.0-35.0 g/dl Red Cell Distribution Width 19.8 11.0-16.0 % Platelet Count 77 160-400 X10*3/uL Mean Platelet Volume 11.1 9.4-12.3 fL Neutrophils Percent Auto 61.3 45-73 % Imm Gran Pct Auto 0.4 0.0-0.4 % Lymphocytes Percent Auto 28.9 20-40 % Monocytes Percent Auto 7.9 2-11 % Eosinophils Percent Auto 1.1 0-4 % Basophils Percent Auto 0.4 0-2 % NRBC Pct Auto 0.0 0.0-0.2 /100WBC Neutrophils Absolute Auto 1.6 2.0-8.3 x10*3/uL Imm Gran Abs Auto 0.01 0.00-0.03 X10*3/uL Lymphocytes Absolute Auto 0.8 1.2-4.9 X10*3/uL Monocytes Absolute Auto 0.2 0.1-1.2 X10*3/uL Eosinophils Absolute Auto 0.0 0.0-0.4 X10*3/uL Basophils Absolute Auto 0.0 0.0-0.2 X10*3/uL NRBC Abs Auto 0.000 0.0-0.012 X10*3/uL RETIC Reviewed date:07/27/2024 05:48:49 PM Interpretation: Performing Lab:[facility], [address] [place] [phone] Notes/Report: Reticulocytes Absolute 0.160 0.026-0.0 95 X10*6/uL Immature Retic Fraction 21.6 3.0-15.9 % Retic HGB Equivalent 26.2 30.0-35.0 pg Reticulocyte Percent 5.2 0.5-1.8 % Ferritin Reviewed date:07/28/2024 12:21:06 PM Interpretation: Performing Lab:[facility], [address] [place] [phone] Notes/Report: Ferritin 40 10-250 ng/mL Lactate Dehydrogenase Reviewed date:07/28/2024 12:21:27 PM Interpretation: Performing Lab:[facility], [address] [place] [phone] Notes/Report: Lactate Dehydrogenase 206 122-220 U/L Immunofixation Pnl, Serum Reviewed date:07/29/2024 07:12:14 PM Interpretation: Performing Lab:[facility], [address] [place] [phone] Notes/Report: IgG 235 816-5769 mg/dL IgA 149 70-320 mg/dL IgM 77 50-300 mg/dL THIS TEST WAS PERFORMED AT: [employer] [address] [place] [phone] MEENA CHAMORRO MD Immunofixation Interpretation SEE NOTE Normal pattern. No monoclonal proteins detected. Type and Screen Reviewed date:07/31/2024 12:19:46 PM Interpretation: Performing Lab:[facility], [address] [place] [phone] Notes/Report: Witnessed by SAUL Results at Issue Units as of 07/29/24 1103 ... Test View Group: Most Recent HGB HCT Results No results available. Results at Issue Units as of 07/29/24 1304 ... Test View Group: Most Recent HGB HCT Results No results available. Hgb 7-9 gm No Blood Type ON Antibody Screen POSITIVE Red Blood Cells Reviewed date:07/31/2024 12:19:31 PM Interpretation: Performing Lab:[facility], [address] [place] [phone] Notes/Report: Red Blood Cells [id number] ON RC Red Blood Cells TRANSFUSED 07/29/24 1302 Red Blood Cells [id number] ON RC Red Blood Cells TRANSFUSED 07/29/24 1101 Red Blood Cells [id number] ON RC Red Blood Cells TRANSFUSED 07/29/24 1302 Red Blood Cells [id number] ON RC Red Blood Cells TRANSFUSED 07/29/24 1101 C ORRECTED REPORT Antibody Identification Reviewed date:07/31/2024 12:19:39 PM Interpretation: Performing Lab:[address] [address] Notes/Report: Antibody Identification JKA Antibody Identification INC Antibody Identification JKA C ORRECTED REPORT Complete Blood Count no Diff Reviewed date:08/03/2024 04:33:21 PM Interpretation: Performing Lab:[address] [address] Notes/Report: White Blood Count 2.9 4.8-10.8 X10*3/uL Red Blood Count 3.93 4.20-5.50 X10*6/uL Hemoglobin 10.7 12.0-16.0 g/dl Hematocrit 33.3 37.0-47.0 % Mean Corpuscular Volume 84.7 80.0-98.0 fL Mean Corpuscular Hemoglobin 27.2 27.0-33.0 pg Mean Corpuscular HGB Conc 32.1 31.0-35.0 g/dl Red Cell Distribution Width 17.8 11.0-16.0 % Platelet Count 66 160-400 X10*3/uL Mean Platelet Volume 10.6 9.4-12.3 fL NRBC Pct Auto 0.0 0.0-0.2 /100WBC NRBC Abs Auto 0.000 0.0-0.012 X10*3/uL Prothrombin Time INR Reviewed date:08/02/2024 05:18:51 PM Interpretation: Performing Lab:[address] [address] Notes/Report: Prothrombin Time 12.3 10.9-12.4 SEC INTERNATIONAL NORM RATIO 1.1 0.9-1.1 INTERNATIONAL NORMALIZED RATIO (INR) REFERENCE RANGES Reference Range For patients not on anticoagulant therapy: 0.9 - 1.1 INR ranges for oral anticoagulant therapy: For prevention and treatment of venous thrombosis and pulmonary embolism: 2.0 - 3.0 For acute myocardial infarction with aspirin therapy: 2.0 - 3.0 For acute myocardial infarction without aspirin therapy: 3.0 - 4.0 For patients with mechanical prosthetic heart valves: 2.5 - 3.5 Basic Metabolic Panel Reviewed date:08/03/2024 12:05:42 PM Interpretation: Performing Lab:[facility], [address] [place] [phone] Notes/Report: Sodium 141 135-145 mmol/L Potassium 3.9 3.3-5.1 mmol/L Chloride 111 96-108 mmol/L Carbon Dioxide 22 22-29 mmol/L Anion Gap 12 12-20 Blood Urea Nitrogen 10 9-16 mg/dL Creatinine 0.66 0.5-1.4 mg/dL Estimated Glomerular Filt Rate > 60 Chronic Kidney Disease: Estimated GFR < 60 mL/min/1.73m2 Severe Kidney Disease: Estimated GFR < 15 mL/min/1.73m2 Glucose Random 120 60-115 mg/dL Calcium 8.9 8.4-10.2 mg/dL US abdomen comp w elastograp hy Reviewed date:08/06/2024 04:05:23 PM Interpretation: Performing Lab: Notes/Report: [address] [address] Ultrasound Report Signed Patient: Mary Lou Celestin MR#: [id number] : 1945 Acct:[id number] Age/Sex: 79 / F ADM Date: 08/05/24 Loc: HO.US Attending Dr: Gilberto Cheema MD Ordering Physician: Gilberto Cheema MD Date of Service: 08/05/24 Procedure(s): US abdomen comp w elastography Accession Number(s): [id number] cc: Christian Lewis MD; Gilberto Cheema MD EXAMINATION: US ABDOMEN COMPLETE WITH LIVER [...] 08/06/24 1231 DD/ 0900 TD/TT: 08/05/24 0945 [employer] Operator: [place] [address] Ultrasound Report Signed Patient: Mary Lou Celestin MR#: [id number] : 1945 Acct:[id number] Age/Sex: 79 / F ADM Date: 08/05/24 Loc: HO.US Attending Dr: Gilberto Cheema MD Ordering Physician: Gilberto Cheema MD Date of Service: 08/05/24 Procedure(s): US abdomen comp w elastography Accession Number(s): [id number] cc: Christian Lewis MD; Gilberto Cheema MD EXAMINATION: US ABDO MEN COMPLETE WITH [...] hepatopedal flow in the portal vein. Ultrasound elastogra phy of the liver was performed with 10 separate measurements of the liver parenchyma with the patient in the supine position. Measuremen ts were obtained approximately 2 cm below Jaxon's capsule an d perpendicular to the capsule. Images are of satisfactory quality. The median shear wav e velocity is 1.04 m/s. The interquartile range/median (IQR/median) is 0.17. Gallbladder and bili torin [...] obscured by bowel gas. Spleen: The spleen i s normal in size and contour, measuring 21.4 cm in length. Abdominal aorta and inferior vena cava: The visualized portions of the abdominal aorta and inferior vena cava are normal in caliber. There is no free flu id in the abdomen. US/US abdomen comp w [...] vascular congestion, obstructive cholestasis, non-fasting state, and infiltrat fadi [...] 08/06/24 1231 DD/ 0900 TD/TT: 08/05/24 0945 [employer] Operator: US duplex arterial venous co mp Reviewed date:08/06/2024 04:04:32 PM Interpretation: Performing Lab: Notes/Report: [address] [address] Ultrasound Report Signed Patient: Mary Lou Celestin MR#: [id number] : 1945 Acct:[id number] Age/Sex: 79 / F ADM Date: 08/05/24 Loc: HO.US Attending Dr: Gilberto Cheema MD Ordering Physician: Gilberto Cheema MD Date of Service: 08/05/24 Procedure(s): US duplex arterial venous comp Accession Number(s): [id number] cc: Christian Lewis MD; Gilberto Cheema MD EXAMINATION: US ABDOMEN COMPLETE WITH LIVER [...] 08/06/24 1231 DD/ 0900 TD/TT: 08/05/24 0945 [employer] Operator: [address] [address] Ultrasound Report Signed Patient: Mary Lou Celestin MR#: [id number] : 1945 Acct:[id number] Age/Sex: 79 / F ADM Date: 03/19/25 Loc: HO.US Attending Dr: Gilberto Cheema MD Ordering Physician: Gilberto Cheema MD Date of Service: 08/05/24 Procedure(s): US dup miah arterial venous comp Accession Number(s): [id number] cc: Christian Lewis MD; Gilberto Cheema MD EXAMINATION: US ABDO MEN COMPLETE WITH [...] hepatopedal flow in the portal vein. Ultrasound elastogra phy of the liver was performed with 10 separate measurements of the liver parenchyma with the patient in the supine position. Measuremen ts were obtained approximately 2 cm below Jaxon's capsule an d perpendicular to the capsule. Images are of satisfactory quality. The median shear wav e velocity is 1.04 m/s. The interquartile range/median (IQR/median) is 0.17. Gallbladder and bili torin [...] obscured by bowel gas. Spleen: The spleen i s normal in size and contour, measuring 21.4 cm in length. Abdominal aorta and inferior vena cava: The visualized portions of the abdominal aorta and inferior vena cava are normal in caliber. There is no free flu id in the abdomen. US/US duplex arterial venous [...] vascular congestion, obstructive cholestasis, non-fasting state, and infiltrat fadi [...] 08/06/24 1231 DD/ 0900 TD/TT: 08/05/24 0945 [employer] Operator: Complete Blood Count Auto Di ff Reviewed date:08/13/2024 04:27:13 PM Interpretation: Performing Lab:[facility], [address] [place] [phone] Notes/Report: White Blood Count 3.2 4.8-10.8 X10*3/uL Red Blood Count 3.89 4.20-5.50 X10*6/uL Hemoglobin 10.6 12.0-16.0 g/dl Hematocrit 32.4 37.0-47.0 % Mean Corpuscular Volume 83.3 80.0-98.0 fL Mean Corpuscular Hemoglobin 27.2 27.0-33.0 pg Mean Corpuscular HGB Conc 32.7 31.0-35.0 g/dl Red Cell Distribution Width 16.6 11.0-16.0 % Platelet Count 91 160-400 X10*3/uL Mean Platelet Volume 10.1 9.4-12.3 fL Neutrophils Percent Auto 62.9 45-73 % Imm Gran Pct Auto 0.3 0.0-0.4 % Lymphocytes Percent Auto 25.4 20-40 % Monocytes Percent Auto 8.6 2-11 % Eosinophils Percent Auto 2.2 0-4 % Basophils Percent Auto 0.6 0-2 % NRBC Pct Auto 0.0 0.0-0.2 /100WBC Neutrophils Absolute Auto 2.0 2.0-8.3 x10*3/uL Imm Gran Abs Auto 0.01 0.00-0.03 X10*3/uL Lymphocytes Absolute Auto 0.8 1.2-4.9 X10*3/uL Monocytes Absolute Auto 0.3 0.1-1.2 X10*3/uL Eosinophils Absolute Auto 0.1 0.0-0.4 X10*3/uL Basophils Absolute Auto 0.0 0.0-0.2 X10*3/uL NRBC Abs Auto 0.000 0.0-0.012 X10*3/uL Leukemia/Lymph. Eval. Bone M ar Reviewed date:08/17/2024 12:18:53 PM Interpretation: Performing Lab:[facility], [address] [place] [phone] Notes/Report: ANEMIA [id number] LEFT ILIAC CREST LLE Interpretation See Note See repor t from [employer] in the EMR. Chromosome Anal. Bone Marrow Reviewed date:08/20/2024 12:50:52 PM Interpretation: Performing Lab:[facility], [address] [place] [phone] Notes/Report: LEFT ILIAC CREST ANEMIA [id number] 1340 Chromosome Anal. Bone Marrow See note See report from [employer] in the EMR. FISH,CLL 11q22.3 Reviewed date:08/27/2024 06:45:39 PM Interpretation: Performing Lab:[facility], [address] [place] [phone] Notes/Report: FISH CLL (Tech only) [facility] FISH,CLL 11q22.3 See Note See report from [employer] in the EMR. Pathology Reviewed date:08/19/2024 02:06:22 PM Interpretation: Performing Lab:[facility], [address] [place] [phone] Notes/Report: --- Name: Frances Celestin Age/Sex: 79/F : 1945 Unit#: [id number] Attend Dr: Hoa Olivares MD Re08/13/24 Status : [facility] Location: [facility] Disch: --- SPEC : [id number] RECD : 08/13/24-1400 STATUS: AVI FANG NUM: [id number] RICKIE: 08/13/24-[address]: Tim Perla MD ENTERED: 08/13/24-14 09 SP TYPE: Surgical OTHR DR: Christian Lewis MD, Renuka MD ORDERED: Bm Smear, I simona Stain/3, HE Stain/3, Reticulin Stain, Gross Micro L4/2, B Cell, T Cell, Andrew Giemsa/3, IHC, Add. immunos/5, Special st. 2/2, Ki-67, Bcl-6, CD5, CD10, Decal Diagnosis A-C. 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 - Background erythroid-predominant marrow with maturing trlineage hematopoiesis. - Reduced iron store s. See description and comment. Comment: Concurrent flow cytometry identifies kappa light-chain restricted B-cells with CD5 and CD23 co-expression - see report in its entirety in the EMR - Reports/Pathology section as a scanned report (camera icon). Cytogenetics and CLL FISH will be addended. Data synopsis - Bone Marrow Clinical context: Pancytopenia Peripheral CBC: See EMR Procedure: Biopsy, aspirate and clot Bone marrow cellularity: 30% overall (range 0-60%) Bone marrow blasts: Fewer than 1% Bone marrow lymphocytes: Approximately 50% (difficult to assess) Dysplasia: Not identified Iron stain: Reduced iron stores Reticulin/Trichrome stains (fibrous grade): Not increased (see description) Histologic group: Chronic lymphocytic leukemia Biomarker studies: C LL FISH and cytogenetics pending Clinical History Anemia Microscopic Description No peripheral smear is submitted for evaluation. The bone marrow biop sy measures 6 mm and consists of trabecular marrow and clot. The overall cellularity is 30% (range 0 to 60%). The M:E ratio is decreased. Prominent lymphoid aggregates are present comprised of small lymphocytes with scant cytoplasm and round/oval/slightly irregular nuclei with variable chromatin (20% of the biopsy and 50% of the clot). In the background marrow, erythroid precursors have normoblastic maturation. Myeloid precursors h ave normal maturation through to the neutrophilic stage. Megakaryocytes appear normal in num uri and are typical appearing. In the clot (C), the lymphocytes are predominantly B-cell s with fewer admixed T-cells by CD20 and CD3 immunostaining, CONTINUED ON NEXT PAGE --- Name: Frances Celestin Age/Sex: 79/F : 1945 Unit#: [id number] Attend Dr: Hoa Olivares MD Re08/13/24 Status : [facility] Location: [facility] Disch: --- SPEC : [id number] RECD : 08/13/24-1400 STATUS: SOUT REQ NUM: [id number] RICKIE: 08/13/24-[address] [facility] DR: Tim Perla MD ENTERED: 08/13/24-14 09 SP TYPE: Surgical OTHR DR: Christian Lewis MD, Renuka MD ORDERED: Bm Smear, I simona Stain/3, HE Stain/3, Reticulin Stain, Gross Micro L4/2, B Cell, T Cell, Andrew Giemsa/3, IHC, Add. immunos/5, Special st. 2/2, Ki-67, Bcl-6, CD5, CD10, Decal Microscopic Descript ion (Continued) respectively; they aberrantly co-express CD5 and do not co-express CD10 or bcl-6; the proliferation index is low (5%) with Ki-67 immunostain. The marrow aspirate smear is adequate for evaluation and consists of cellular spicules. The overall M:E ratio is 0.8. Numerous stripped cells are present. In the background viable marrow, red cells ar e relatively increased in number and have normoblastic maturation. Myeloid precursors a re relatively decreased in number and have normal maturation. Megakaryocytes are s een and morphologically typical. The differential has less than 1 blast, 2 promyelocyt es, 12 myelocytes/metamyelocyt es, 21 bands/neutrophils, 21 lymphs, 2 plasma cell, 42 erythroids. Special Studies: Iro n stain performed on the core does not have appreciable stainable iron; iron stain on the cl ot has rare stainable iron. Iron stain performed on the aspirate has rare storage iron; sideroblasts are not identified. Reticulin stain on the core does not have increased reticulin fibrosis in the marrow elements; however, appears modestly increased in the lymphoid aggregates (non-specific). Material Received A. Left iliac bone smears B. Left iliac bone core C. Left iliac bone aspirate Gross Description Received in three parts. Part A: Received are three giemsa stained slides; a portion of the specimen is sent for flow cytometry, cytogenetics and FISH studies. Part B: Received in B plus fixative labeled ?bone marrow biopsy, left? along with scant blood are 2 hard vivas-white and vivas-brown irregular and cylindrical portions of bone measuring 0.2 and 1. 1 cm in greatest dimension, submitted in toto in a labeled B following decalcification. Part C: Received in B plus fixative labeled ?bone marrow? is a 0.5 x 0.4 x 0.1 cm aggregate of blood, rajput-white fibrinous debris and a few minute vivas particulate tissue fragments, submitted in toto in a cassette labeled C. CEDS Preliminary results communicated to Dr. Olivares on 08/18/2024 CONTINUED ON NEXT PAGE --- Name: Frances Celestin Age/Sex: 79/F : 1945 Unit#: [id number] Attend Dr: Hoa Olivares MD Re08/13/24 Status : [facility] Location: [facility] Disch: --- SPEC : [id number] RECD : 08/13/24-1400 STATUS: AVI FANG NUM: [id number] RICKIE: 08/13/24-[address] [facility] DR: Tim Perla MD ENTERED: 08/13/24- 09 SP TYPE: Surgical OTHR DR: Christian Lewis MD, Renuka MD ORDERED: Bm Smear, I simona Stain/3, HE Stain/3, Reticulin Stain, Gross Micro L4/2, B Cell, T Cell, Andrew Giemsa/3, IHC, Add. immunos/5, Special st. 2/2, Ki-67, Bcl-6, CD5, CD10, Decal Gross Description (Continued) Special studies orde red and performed: iron stain (A, B and C); reticulin stain (B); immunostains for CD2 0, CD3, CD5, CD10, bcl-6 and Ki-67 on C Copies To: Christian Lewis MD [facility] [address] [address] Tim Perla MD [address] [place] [id number] Hoa Olivares MD [facility] Oncology/Hematology [address] [place] [address] --- Signed (signature on file) Refugio Lozano MD 08/19/24 0944 --- END OF REPORT CT biopsy asp core bone mohan ow Reviewed date:08/21/2024 12:03:15 PM Interpretation: Performing Lab: Notes/Report: [address] [address] [address] Scan Report Signed Patient: Mary Lou Celestin MR#: [id number] : 1945 Acct:[id number] Age/Sex: 79 / F ADM Date: 08/13/24 Loc: [facility] Attending Dr: Hoa Olivares MD Ordering Physician: Hoa Olivares MD Date of Service: 08/13/24 Procedure(s): CT biopsy asp core bone marrow Accession Number(s): [id number] cc: Christian Lewis MD; Hoa Olivares MD Report Number: [id number]: Total DLP = 219.00 mGy-cm PROCEDURES: 1. Limited preprocedure CT of the pelvis. Permanent images saved in PACS. 2. 11 g bone marrow core biopsy of the left posterior iliac spine 3. 11 g bone marrow aspirate of the left posterior iliac spine MEDICATIONS: -Versed 1 mg, Fentanyl 50 mcg, and lidocaine 1% 10 mL SQ -Antibiotics: None -For additional details, please see nursing flowsheet. COMPLICATIONS: None ESTIMATED BLOOD LOSS: < 5 ml CONTRAST: None SPECIMENS: 11 g core placed in formalin. Bone marrow aspirate placed in EDTA and sodium heparin tubes MODERATE SEDATION TIME: 15 min PROCEDURE NOTE: The procedure, risks, benefits, and alternatives were carefully explained to the patient and written informed consent was obtained. The patient was placed prone on the CT table. A timeout was performed. A limited CT of the pelvis was performed to localize posterior iliac spine and choose appropriate needle entry and trajectory. The patient was prepped and draped in usual sterile fashion. The skin, subcutaneous tissues, and periosteum were anesthetized with lidocaine. Under CT guidance, an 11-gauge bone marrow biopsy needle was advanced into the posterior iliac spine, with the tip positioned slightly cephalad. An 11-gauge core biopsy of the bone marrow was performed and was placed in formalin. Next, the 11-gauge bone marrow biopsy needle was then advanced into the posterior iliac spine, under CT guidance, with the tip positioned slightly caudal. A bone marrow aspirate was performed. The specimen was placed in the provided EDTA and sodium heparin tubes. The needle was removed. A dry dressing was applied and secured with Tegaderm. There were no immediate complications. The patient was stable after the procedure and was transferred to the post anesthesia care unit. The procedure was done under moderate sedation with a dedicated nurse for monitoring of vital signs. CT/CT biopsy asp core bone marrow Impression: CT-guided bone marrow biopsy and aspirate Electronically signed by: Tim Perla MD 08/13/2024 01:54 PM EDT RP Dictated By: Tim Perla MD Signed By: <Electronically signed by Tim Perla MD in OV> 08/13/24 1354 DD/ 1254 TD/TT: 08/13/24 1354 [employer] Support Operations Operator: [place] [address] CT Scan Report Signed Patient: Mary Lou Celestin MR#: [id number] : 1945 Acct:[id number] Age/Sex: 79 / F ADM Date: 08/13/24 Loc: .[facility] Attending Dr: Hoa Olivares MD Ordering Physician: Hoa Olivares MD Date of Service: 08/13/24 Procedure(s): CT bio psy asp core bone marrow Accession Number(s): [id number] cc: Christian Lewis MD; Hoa Olivares MD Report Number: [id number]: Total DLP = 219.00 mGy-cm PROCEDURES: 1. Limited preproced ure CT of the pelvis. Permanent images saved in PACS. 2. 11 g bone marrow core biopsy of the left posterior iliac spine 3. 11 g bone marrow aspirate of the left posterior iliac spine MEDICATIONS: -Versed 1 mg, Fentan yl 50 mcg, and lidocaine 1% 10 mL SQ -Antibiotics: None -For additional details, please see nursing flowsheet. COMPLICATIONS: None ESTIMATED BLOOD LOSS : < 5 ml CONTRAST: None SPECIMENS: 11 g core placed in formalin. Bone marrow aspirate placed in EDTA and sodium hepa rin tubes MODERATE SEDATION TI ME: 15 min PROCEDURE NOTE: The procedure, risks , benefits, and alternatives were carefully explained to the patient and written informed consent was obtained. The patient was placed prone on the CT table. A timeout was performed. A limited CT of the pelvis was performed to localize posterior iliac spine and choose appropriate needle entry and trajectory. The patient was prepped and drap ed in usual sterile fashion. The skin, subcutaneo us tissues, and periosteum were anesthetized with lidocaine. Under CT guidance, an 11-gauge bone marrow biopsy needle was advanced into the posterior iliac spine, with the tip positioned slightly cephalad. A n 11-gauge core biopsy of the bone marrow was performed and was placed in formalin. Next, the 11-gauge bone marrow biopsy needle was th en advanced into the posterior iliac spine, under CT guidance, with th e tip positioned slightly caudal. A bone marrow aspirate was perform ed. The specimen was placed in the provided EDTA and sodium heparin tubes. The needle was removed. A dry dressing was applied and secured with Tegaderm. There were no immediate complications. The patient was stab le after the procedure and was transferred to the post anesthesia care unit. The procedure was do ne under moderate sedation with a dedicated nurse for monitoring of vi david signs. CT/CT biopsy asp core bone marrow Impression: CT-guided bone marro w biopsy and aspirate Electronically pilar d by: Tim Perla MD 08/13/2024 01:54 PM EDT Dictated By: Tim Perla MD Signed By: <Electronically signed by Tim Perla MD in OV> 08/13/24 1354 DD/ 1254 TD/TT: 08/13/24 1354 [employer] Operator: Complete Blood Count Auto Di ff Reviewed date:08/27/2024 06:36:51 PM Interpretation: Performing Lab:[facility], [address] [place] [phone] Notes/Report: White Blood Count 3.3 4.8-10.8 X10*3/uL Red Blood Count 3.72 4.20-5.50 X10*6/uL Hemoglobin 10.1 12.0-16.0 g/dl Hematocrit 30.9 37.0-47.0 % Mean Corpuscular Volume 83.1 80.0-98.0 fL Mean Corpuscular Hemoglobin 27.2 27.0-33.0 pg Mean Corpuscular HGB Conc 32.7 31.0-35.0 g/dl Red Cell Distribution Width 15.8 11.0-16.0 % Platelet Count 80 160-400 X10*3/uL Mean Platelet Volume 10.8 9.4-12.3 fL Neutrophils Percent Auto 63.1 45-73 % Imm Gran Pct Auto 0.3 0.0-0.4 % Lymphocytes Percent Auto 24.9 20-40 % Monocytes Percent Auto 8.9 2-11 % Eosinophils Percent Auto 2.5 0-4 % Basophils Percent Auto 0.3 0-2 % NRBC Pct Auto 0.0 0.0-0.2 /100WBC Neutrophils Absolute Auto 2.1 2.0-8.3 x10*3/uL Imm Gran Abs Auto 0.01 0.00-0.03 X10*3/uL Lymphocytes Absolute Auto 0.8 1.2-4.9 X10*3/uL Monocytes Absolute Auto 0.3 0.1-1.2 X10*3/uL Eosinophils Absolute Auto 0.1 0.0-0.4 X10*3/uL Basophils Absolute Auto 0.0 0.0-0.2 X10*3/uL NRBC Abs Auto 0.000 0.0-0.012 X10*3/uL RETIC Reviewed date:08/27/2024 06:30:16 PM Interpretation: Performing Lab:[address] [address] Notes/Report: Reticulocytes Absolute 0.120 0.026-0.0 95 X10*6/uL Immature Retic Fraction 12.6 3.0-15.9 % Retic HGB Equivalent 32.6 30.0-35.0 pg Reticulocyte Percent 3.2 0.5-1.8 % Ferritin Reviewed date:08/27/2024 06:30:01 PM Interpretation: Performing Lab:[address] [place] [address] Notes/Report: Ferritin 36 10-250 ng/mL Lactate Dehydrogenase Reviewed date:08/27/2024 06:29:52 PM Interpretation: Performing Lab:[address] [address] Notes/Report: Lactate Dehydrogenase 197 122-220 U/L Vitamin B12 Reviewed date:08/27/2024 06:29:45 PM Interpretation: Performing Lab:[address] [address] Notes/Report: Vitamin B12 594 200-900 pg/mL NORMAL 200-900 PG/ML INDETERMINATE 160-199 PG/ML DEFICIENT < 160 PG/ML Haptoglobin Reviewed date:08/27/2024 06:30:08 PM Interpretation: Performing Lab:[address] [address] Notes/Report: Haptoglobin 51 63-273 mg/dL Reason For Referral No Information Medications Medication SIG (Take, Route, Frequency, Duration) Notes Start Date End Date Status Ferrous Sulfate 325 (65 Fe) MG 1 tablet Orally Once a day 02/23/2021 Active Levothyroxine Sodium 100 MCG TAKE 1 TABL ET BY MOUTH EVERY DAY IN THE MORNING ON EMPTY STOMACH Active Valsartan-hydroCHLOROthiazid e 160-12.5 MG TAKE 1 TABLET BY MOUTH EVERY DAY for 90 Active Cefuroxime Axetil 500 MG 1 tablet Orally every 12 hrs Active Omeprazole 40 MG 1 capsule Orally Onc e a day Active Vitamin D 2000 UNIT Orally Active Atorvastatin Calcium 20 MG TAKE 1 TABLET BY MOUTH EVERY DAY for 90 Active Ursodiol 500 MG TAKE 2 TABLETS BY MO UTH EVERY MORNING AND 1 TAB EVERY EVENING 90 for 90 Active Immunizations Vaccine Route Administration Date Status Comme [facility] Flu Vaccine IM Intramuscular 03/05/2011 Administered Flu Vaccine Unknown 03/10/2012 Administered [facility] Flu Vaccine Unknown 03/12/2012 Administered flu vac at [facility] Flu Vaccine IM Intramuscular 01/26/2013 Administered PPSV23 (Pnemovax) IM Intramuscular 01/29/2013 Administered Fluarix Quadrivalent IM Intramuscular 02/16/2014 Administered Fluarix Quadrivalent IM Intramuscular 03/14/2015 Administered Prevnar 13 IM Intramuscular 09/26/2015 Administered Fluarix Quadrivalent IM Intramuscular 03/20/2016 Administered Fluarix Quadrivalent IM Intramuscular 03/05/2017 Administered TDaP Unknown 04/08/2017 Administered pt was given the vaccine at [facility] on [facility] Fluarix Quadrivalent IM Intramuscular 04/21/2018 Administered PPSV23 (Pnemovax) IM Intramuscular 04/25/2018 Administered Influenza High Dose IM Intramuscular 03/12/2019 Administer ed Influenza High Dose Unknown 02/08/2020 Administered [facility] Influenza High Dose Unknown 02/11/[address] [facility] Influenza High Dose IM Intramuscular 02/10/2020 Administer ed [facility] SARS-COV-2 Pfizer Unknown 08/31/2020 Administered SARS-COV-2 Pfizer [...] Administered [facility] Flu Vaccine Unknown 02/16/2014 Pending Social History Tobacco Use: Social History Observation [...] ast year? No Points 0 Interpretation Negative Problems Problem Type SNOMED Code ICD Code Onset Dates Problem Status W/U Status Risk Notes Problem 339299105 Thrombocytopenia (D69.6) Active confirmed Problem 67638191 Lymphocytosis (D72.820) Active confirmed Problem 520275386 Tubular adenoma (D36.9) Active confirmed Problem 831700232 Reflux esophagit is (K21.00) Active confirmed Problem Vitamin D deficiency (39714308) Vitamin D deficiency (E55.9) Active confirmed Problem 571701197 Annual physical exam (Z00.00) Active confirmed Problem 729628884 Morbid (severe) obesity due to excess calories (E66.01) Active confirmed Problem 07030006 Cerebral aneurys m, nonruptured (I67.1) Active confirmed Problem 837599482 Body mass index (BMI) 36.0-36.9, adult (Z68.36) Active confirmed Problem 201496228 Osteopenia (M85.80) Active confirmed Problem 78606100 Essential hypert ension (I10) Active confirmed Problem 979841122 Acquired hypothyroidism (E03.9) Active confirmed Problem 6223405 Prediabetes (R73.09) Active confirmed Problem 092243975 Low HDL (under 4 0) (E78.6) Active confirmed Problem 813113663 Nonrheumatic aor tic valve stenosis (I35.0) Active confirmed Problem 80911627 Hiatal hernia (K44.9) Active confirmed Problem 06868492 Iron deficiency anemia, unspecified iron deficiency anemia type (D50.9) Active confirmed Problem 835212457 Neutropenia, unspecified type (D70.9) Active confirmed Problem 850724706 Severe aortic st enosis (I35.0) Active confirmed Problem 089026224 Pure hypercholesterolemia (E78.00) Active confirmed Problem 907204592 BMI 39.0-39.9,ad ult (Z68.39) Active confirmed Problem 984537831 BMI 38.0-38.9,ad ult (Z68.38) Active confirmed Problem 1522515872219189 Barretts esopha eddie with dysplasia (K22.719) Active confirmed Problem 322005070 Asymptomatic nael icose veins (I83.90) Active confirmed Problem 741354630 Aortic stenosis, moderate (I35.0) Active confirmed Vital Signs Blood pressure diastolic 60 mm Hg 06/30/2024 Height 65.25 in 06/30/2024 Blood pressure systolic 112 mm Hg 06/30/2024 Weight 190 lbs 06/30/2024 BMI 31.37 kg/m2 06/30/2024 Encounters Encounter Location Date Provider Diagnosis Christian Lewis MD [address] [place] [address] [id number] 11/26/2023 Christian Lewis Blood tests for rout ine general physical examination Z00.00 ; Essential hypertension I10 ; Prediabetes R73.09 ; Pure hypercholesterolemia E78.00 ; Thrombocytopenia D69.6 and Vitamin D deficiency E55.9 Christian Lewis MD [address] [place] [address] [id number] 02/04/2024 Christian Lewis Encounter for immuni zation Z23 Christian Lewis MD [address] [place] [address] [id number] 05/28/2024 Christian Lewis Iron deficiency E61. 1 ; Thrombocytopenia D69.6 and Acquired hypothyroidism E03.9 Christian Lewis MD [address] [place] [address] [id number] 07/17/2024 Christian Lewis Gastrointestinal hemorrhage associated with duodenitis K29.81 Christian Lewis MD [address] [place] [address] [id number] 07/24/2024 Christian Lewis Hematuria, unspecifi ed type R31.9 Christian Lewis MD [address] [place] [address] [id number] 12/03/2023 Christian Lewis Vitamin D deficiency E55.9 ; Thrombocytopenia D69.6 ; Essential hypertension I10 ; Barretts esophagus with dysplasia K22.719 ; Iron deficiency E61.1 ; Acquired hypothyroidism E03.9 ; Annual physical exam Z00.00 ; Prediabetes R73.09 ; Pure hypercholesterolemia E78.00 ; Reflux esophagitis K21.00 ; Colon cancer screening Z12.11 and Encounter for screening for depression Z13.31 Christian Lewis MD [address] [place] [address] [id number] 06/04/2024 Christian Lewis Aortic stenosis, mod erate I35.0 ; Acquired hypothyroidism E03.9 ; Essential hypertension I10 ; Thrombocytopenia D69.6 and Iron deficiency anemia, unspecified iron deficiency anemia type D50.9 Christian Lewis MD [address] [place] [address] [id number] 06/30/2024 Christian Lewis Gastrointestinal hemorrhage associated with duodenitis K29.81 ; Tubular adenoma D36.9 and Severe aortic stenosis I35.0 Christian Lewis MD [address] [place] [address] [id number] 08/03/2024 Christian Lewis MD [address] [place] [address] [id number] 06/25/2024 Christian Lewis Assessments Encounter Date Diagnosis (ICD Code) Assessment Notes Treatment Notes Treatment Clinical Notes Section Notes 11/26/[address] ine general physical examination (ICD-10 - Z00.00) 11/26/2023 Essential hypertensi on (ICD-10 - I10) 02/04/2024 Encounter for immunization (ICD-10 - Z23) 05/28/2024 Iron deficiency (ICD -10 - E61.1) 05/28/2024 Thrombocytopenia (IC D-10 - D69.6) 07/17/2024 Gastrointestinal hemorrhage associated with duodenitis (ICD-10 - K29.81) 07/24/2024 Hematuria, unspecifi ed type (ICD-10 - R31.9) 12/03/2023 Vitamin D deficiency (ICD-10 - E55.9) instructed patient to start taking med more regularly 12/03/2023 Thrombocytopenia (IC D-10 - D69.6) stable, will continue to monitor 06/04/2024 Aortic stenosis, moderate (ICD-10 - I35.0) told not to shovel and if she gets more short of breath to call and will get her in to see cardiology. has an appt next month and she feels as though she can wait 06/04/2024 Acquired hypothyroid ism (ICD-10 - E03.9) doing well, will continue current regiment 06/30/2024 Gastrointestinal hemorrhage associated with duodenitis (ICD-10 - K29.81) doing well but hct was still low when she left the hospital Total time spent on the date of the encounter is 35 minutes including both face to face time spent and time spent reviewing documentation , pertinent lab data, studies and counseling the patient. 06/30/2024 Tubular adenoma (ICD -10 - D36.9) to follow up with dr cheema 11/26/2023 Prediabetes (ICD-10 - R73.09) 05/28/2024 Acquired hypothyroid ism (ICD-10 - E03.9) 12/03/2023 Essential hypertensi on (ICD-10 - I10) stable, will continue curren regiment and will continue to monitor 06/04/2024 Essential hypertensi on (ICD-10 - I10) stable, will continue current regiment 06/30/2024 Severe aortic stenos is (ICD-10 - I35.0) to see cardiology next week 11/26/2023 Pure hypercholesterolemia (ICD-10 - E78.00) 12/03/2023 Barretts esophagus w ith dysplasia (ICD-10 - K22.719) followed by dr cheema 06/04/2024 Thrombocytopenia (IC D-10 - D69.6) stable, will continue to monitor 11/26/2023 Thrombocytopenia (IC D-10 - D69.6) 12/03/2023 Iron deficiency (ICD -10 - E61.1) to start taking iron daily 06/04/2024 Iron deficiency anem ia, unspecified iron deficiency anemia type (ICD-10 - D50.9) stable, will continue to monitor 11/26/2023 Vitamin D deficiency (ICD-10 - E55.9) 12/03/2023 Acquired hypothyroid ism (ICD-10 - E03.9) stable, will continue current regiment 12/03/2023 Annual physical exam (ICD-10 - Z00.00) labs reviewed and dicussed with patient 12/03/2023 Prediabetes (ICD-10 - R73.09) stable, no need for medication at this time 12/03/2023 Pure hypercholesterolemia (ICD-10 - E78.00) stable, will continue curren regiment 12/03/2023 Reflux esophagitis (ICD-10 - K21.00) stable, will continue curren t regiment 12/03/2023 Colon cancer screeni ng (ICD-10 - Z12.11) guaiac negative 12/03/2023 Encounter for screen ing for depression (ICD-10 - Z13.31) negative screen Plan Of Treatment Pending Test Test Name Order Date Electrocardiogram (EKG) 11/06/2018 Electrocardiogram (EKG) 08/20/2013 Electrocardiogram (EKG) 10/11/2016 Electrocardiogram (EKG) 10/24/2017 MRA BRAIN NO CONTRAST 11/24/2021 MRA BRAIN NO CONTRAST 03/28/2012 BONE DENSITY DEXA 11/24/2021 BONE DENSITY DEXA 11/15/2020 BONE DENSITY DEXA 12/12/2021 US ABD AORTA 11/29/2022 ECHO 11/15/2020 MM tomosynthesis screening BI 11/15/2020 ECHO 11/12/2019 Future Test Test Name Order Date CA echo transthoracic complete 2 CA echo transthoracic complete 4 Next Appt Details Provider Name:Christian Martin ier, 11/27/2024 07:15:00 AM, [address], [address], [place], [phone], Provider Name:Christian Martin ier, 12/04/2024 09:30:00 AM, [address], [address], [place], [phone], Insurance Providers Payer Name Payer Address Payer Phone Subscriber Number Group Number Insured Name Patient Relationship to Insured Coverage Start Date Coverage End Date [employer] PLAN [address] [facility] [place] [phone] [id number] Mary Lou Celestin Self - patient is the insured Medical (General) History Medical History History ICD Code 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 Cheema - repeat 5 years;Colonoscopy 04/19/21 repeat in one year ( 2021) colonoscopy 05/29/23 repeat 2/3 years denise. esoph done 2012 - Endo done 10/22/16 by [...]
--- OUTSIDE RECORDS SUMMARY | 2024-09-08 10:58 | XMS_ITS ---
Author Organization Christian Lewis MD Address [address] [place] [phone] Care Team Providers Care Radiologic Technologist Chief Name Role Phone Christian Lewis Primary Care Provider Results Component Value Reference Range Notes UA ClnCatch+Micro w/rflx Cul t Reviewed date:07/24/2024 12:06:18 PM Interpretation: Performing Lab:[facility], [address] [place] [phone] Notes/Report: Urine, Clean Catch Color Urine Yellow Appearance Urine Clear PH 6.0 5.0-9.0 Glucose Urine UA Negative Negative mg/dL Urine Blood Negative Negative Specific [place] - Urine 1.015 1.005-1.025 Urine Protein Negative [...] Christian Lewis MD [address] [place] [address] [id number] 07/24/2024 Christian Lewis Hematuria, unspecified type R31.9 Assessments Encounter Date Diagnosis (ICD Code) Assessment Notes Treatment Notes Treatment Clinical Notes Section Notes 07/24/2024 Hematuria, unspecified type (ICD-10 - R31.9) Plan Of Treatment Next Appt Details Provider Name:Christian Zavala Ashleytuan brandon, 11/27/2024 07:15:00 AM, [address], [address], [place], [place], [phone], Provider Name:Christian Martin olur, 12/04/2024 09:30:00 AM, [address], [address], [place], [place], [phone], Progress Notes * CELESTIN Mary Lou SDOB:1945 (79 yo F)Acc No.[id number]:07/24/2024 Progress Note Patient:?Mary Lou CELESTIN Provider:?Christian Lewis MD :1945???Age:79 Y???Sex:Female D ate:07/24/2024 Address:[address] [place] [address] Subjective: * Chief Complaints: * ???1. repeat [...] Lewis MD Date:?0 07/24/2024 Generated for Suzanne caraballo/Ligia/Jessicasmitting on:?09/08/2024 10:57 AM EDT
--- OUTSIDE RECORDS SUMMARY | 2024-09-08 10:58 | XMS_ITS ---
Author Organization [facility] Address [address] [place] [address] Care Team Providers Care Technology Lead Name Role Phone Christian Lewis MD Primary Care Provider Gilberto Hollingsworth Unavailable [phone] REASON FOR VISIT missing cpt code Encounters Encounter Location Date Provider Diagnosis [facility] [address] [place] [address] 08/12/2024 Gilberto Hernandez Plan Of Treatment Next Appt Details Provider Name:Gilberto Hernandez , 02/02/2025 09:50:00 AM, [address], [address], [place], [address], Progress Notes * TRENT RODRIGUEZ SDOB:1945 (79 yo F)Acc No.[id number]:08/12/2024 Patient:?TRENT RODRIGUEZ :1945???Age:79 Y???Sex:Female Address:[address] [place] [address] [place] [address] * true * Date:? Generated for Suzanne caraballo/Ligia/eTransmitting on:?09/08/2024 10:57 AM EDT
== END 2024-09-08 09:49 | disposition home or self-care (01) ==
LOC: HO.PET 09:48
PROVIDERS: PCP Internal Medicine; Visit Provider Internal Medicine
DX: Z13.89 Encounter for screening for other disorder (principal)

== ENCOUNTER → 2024-09-28 23:59 | Outpatient (BNV) | payer MEDICARE, SELFPAY | PROVIDERS: PCP Internal Medicine; Visit Provider Internal Medicine Cardiovascular Disease | DX: I35.0 Nonrheumatic aortic (valve) stenosis (principal); Z00.6 Encounter for examination for normal comparison and control in clinical research program; I50.30 Unspecified diastolic (congestive) heart failure | CPT/HCPCS: 33361; 99152 ==

== ENCOUNTER → 2024-10-30 08:48 | Outpatient (REF) | payer MEDICARE, SELFPAY ==
--- NOTE | 2024-10-30 08:51 | CA_ITS ---
Transthoracic Echocardiogram Patient (Last, First, Middle): Mary Lou Celestin S Gender: Female Date of : 1945 Age: 79 Procedure Date: 10/30/2024 Procedure Type: Transthoracic Echocardiogram Location: OP Height: 165.1 cm Weight: 82.1 kg BSA: 1.90 m2 Heart Rate: 68 bpm BP: 140 / 72 mmHg Launderette Attendant: TO Referring MD: Evan Mann MD Lime Vat Tender: Emil Loza MD Symptoms: Z95.2 - Presence of prosthetic heart valve Study Quality: Fair ECG Rhythm: Sinus Conclusions: - 1. Normal LV ejection fraction of 60 65% with impaired relaxation filling pattern 2. Moderately dilated left atrium 3. Normally functioning bioprosthetic aortic valve with mean gradient of 9 mm Hg 4. Heavy mitral annular calcification with mild mitral stenosis 5. Normal RV systolic pressure 6. Upper limits of normal ascending aortic size 7. No pericardial effusion Findings Left Ventricle Normal left ventricular size, thickness, and systolic function. The visually estimated ejection fraction is between 60-65%. Spectral Doppler is indicative of an impaired relaxation filling pattern. There is mild septal asymmetric hypertrophy. Right Ventricle Normal right ventricular cavity size and systolic function. Atria The left atrium is moderately dilated. There is no evidence of interatrial shunt. The right atrium is likely dilated. Aortic Valve A bioprosthetic aortic valve is present. The prosthetic aortic valve appears to be functioning normally. The mean gradient is 9 mmHg. mild periprosthetic aortic regurgitation noted Mitral Valve There is moderate anterior and severe posterior mitral leaflet thickening. There is severe mitral annular calcification. There is mild mitral valve regurgitation. There is mild mitral valve stenosis. Pulmonic Valve The pulmonic valve is likely normal. There is trace pulmonic valve regurgitation. Tricuspid Valve Normal tricuspid valve structure. There is trace tricuspid valve regurgitation. The right ventricular systolic pressure is 19 mmHg. Normal right atrial pressure. There is no evidence of pulmonary hypertension. Great Vessels The pulmonary artery was not well visualized. Small plaque is seen in the sino tubular ridge. Venous The inferior vena cava is normal in size and collapses greater than 50% with inspiration. Pericardium/Pleural There is no evidence of pericardial effusion. Measurements 2D Linear Measurements IVSd: 1.32 0.6-0.9/0.6-1.0 cm LVIDd: 4.38 3.9-5.3/4.2-5.9 cm LVIDd Index: 2.31 2.4-3.2/2.2-3.1 cm/m2 LVIDs: 2.72 2.0-3.6 cm LVPWd: 0.87 0.7-1.1 cm LA Diam: 4.60 2.7-3.8/3.0-4.0 cm LAIDs Index: 2.42 1.5-2.3 cm/m2 LV Mass: 207.95 67-162/88-224 g LV Mass Index: 109.45 43-95/49-115 g/m2 LVOT Diam: 2.20 3.0+(-)1.3 cm 2D Systolic Function EF 4C: 64.30 >55% EF 2C: 60.20 >55% EF BiP: 62.30 >55% Mitral Valve MV VTI: 0.53 MV Pk Wilian: 1.94 MV Mn Wilian: 1.11 MV Pk Grad: 15.00 MV Mn Grad: 6.00 MV Pk E: 1.25 MV PK A: 1.56 MV Decel Time: 301.00 E/A: 0.80 E'Lateral: 2.72 E'Medial: 3.70 E/E' Med: 33.80 E/E' Lat: 46.00 PHT: 88.00 MVA PHT: 2.50 MVA Continuity: 1.[address] [place]: 4.16 Aortic Valve AoV Pk Wilian: 2.18 AoV Mn Wilian: 1.42 AoV VTI: 0.45 AoV Pk Grad: 19.00 Aov Mn Grad: 9.00 KATIE Cont.VTI: 2.26 LVOT LVOT Pk Wilian: 1.17 LVOT Mn Wilian: 0.77 LVOT VTI: 0.27 LVOT Pk Grad: 5.00 LVOT Mn Grad: 3.00 LVOT Diam: 2.20 LVOT Area: 3.80 Diastolic Function MV Pk E: 1.25 MV Pk A: 1.56 E/A: 0.80 E'Medial: 3.70 E/E' Med: 33.80 E' Laterial: 2.72 E/E' Lat: 46.00 Right Ventricle TAPSE (mm): 26.40 TVS' Wilian: 15.60 Tricuspid Valve TR Pk Wilian: 2.01 TR Pk Grad: 16.00 RA Press: 3.00 RVSP: 19.00 Great Vessels Aorta Ao Asc: 3.60 2.1-3.4 cm Updated in Other Vendor System with Status of Final Emil Loza MD electronically signed on 10/30/2024 4:44:31 PM with status of Final
--- OUTSIDE RECORDS SUMMARY | 2024-10-30 09:03 | XMS_ITS | Patient Health Record ---
Author Organization [facility] Address [address] [facility] [place] [address] Care Team Providers Care Brine Room Laborer Name Role Phone Christian Lewis MD Primary Care Provider Maite Mayfield Unavailable [phone] Allergies No Known Allergies Reason For Referral [...] Date [employer] Advantage [address] [facility] [address] [phone] [id number] Mary Lou Celestin Self - patient is the insured Medical (General) History Medical History History ICD Code High blood pressure Scarlet fever thyroid Chicken pox Surgical History Surgery Date(Month/Year) hysterectomy 1985 knee surgery, left shoulder surgery right stomach surgery 1995 brain aneurysm 2007 colonoscopy 05/29/23
== END ==
LOC: HO.CARD 08:48
PROVIDERS: PCP Internal Medicine; Visit Provider Internal Medicine Cardiovascular Disease
DX: Z95.2 Presence of prosthetic heart valve (principal)
CPT/HCPCS: 93306

== ENCOUNTER → 2024-10-30 08:51 | Outpatient (BNV) | payer MEDICARE, SELFPAY | PROVIDERS: PCP Internal Medicine; Visit Provider Internal Medicine Cardiovascular Disease | DX: I34.0 Nonrheumatic mitral (valve) insufficiency (principal); I34.2 Nonrheumatic mitral (valve) stenosis; I34.81 Nonrheumatic mitral (valve) annulus calcification; Z95.3 Presence of xenogenic heart valve; I42.2 Other hypertrophic cardiomyopathy | CPT/HCPCS: 93306 ==

== ENCOUNTER 2024-11-11 14:30 | Outpatient (AMB) | payer MEDICARE, SELFPAY ==
--- NOTE | 2024-11-11 14:46 | A.OFFVIS_ITS ---
Vital Signs 11/11/24 14:49 Height 5 ft 5 in Weight 179 lb 7.3 oz BMI 29.9 BP 110/56 L Blood Pressure Location Lt brachial Position Sitting Pulse 85 Pulse Source Monitor Intake Visit Reasons: 2m follow up/ TAVR Intake Note: 2 mth f/up-TAVR 09/29 Swift Tender Required: No Accompanied by: Daughter Allergies No Known Allergies (No Known Allergies*) Allergy (Verified 08/26/24 08:32) Medication List - Last Reconciled 11/11/24 by Evan Mann MD atorvastatin 20 mg PO BEDTIME cholecalciferol (vitamin D3) (Vitamin D3) 50 mcg PO DAILY cyanocobalamin (vitamin B-12) 1000 mcg IM daily 06/27-06/30, then 1000 mcg IM weekly 07/07-08/04, then 1000 mcg IM monthly ferrous sulfate 324 mg PO DAILY levothyroxine 100 mcg PO DAILY@0600 omeprazole 40 mg PO BID@0630,1630 syringe with needle (Syringe) As directed ursodiol 1,000 mg PO DAILY ursodiol 500 mg PO BEDTIME HPI Comments Details: Pleasant 79 year female who is here for a 1 month follow-up after transcatheter aortic valve replacement. She has done quite well. No conduction issues were noted. She was discharged within 48 hours. She has been experiencing some right groin pain but on further discussion this is quite medial and maybe related to some local irritation/ friction from clothing. She is feeling significantly improved. No chest pain or shortness of breath. No bleeding issues. It appears she was sent home on baby aspirin although the plan was to start her on Plavix 75 mg daily. She is planning to undergo dental workup. [facility] Medical History Aortic stenosis Obesity Hypothyroid Fatty liver History of Ennis's esophagus GERD (gastroesophageal reflux disease) Elevated cholesterol HTN (hypertension) Surgical History (Updated 11/11/24 @ 15:22 by Evan Mann MD) S/P TAVR (transcatheter aortic valve replacement) Hx of brain surgery History of esophagogastroduodenoscopy (EGD) Hx of colonoscopy History of Yan fundoplication Family History Father Heart problem Paternal Grandmother Breast cancer Maternal Grandfather Breast cancer Social History Household Members: None Housing: House Are you a primary healthcare economics manager to a significant other at home: No Do you presently have visiting nurse or other home services: No Alcohol intake: current Alcohol intake frequency: a few times a month Patient Tobacco Use Status: Former Tobacco user Tobacco use type: Cigarette Second Hand Smoke Exposure: No service: No Current occupational status: retired Gender identity: Female Review of Systems Const Denies chills, Denies fatigue, Denies fever(s), Denies frequent falls, Denies weakness, Denies weight gain and Denies weight loss ENT Denies dizziness Card Denies chest pain, Denies leg edema, Denies lightheadedness, Denies palpitations, Denies dyspnea and Denies dyspnea on exertion Resp Denies cough, Denies dyspnea and Denies dyspnea on exertion GI Denies hematochezia Musc Denies abnormal gait, Denies muscle weakness, Denies numbness, Denies radiating pain into limb and Denies tingling Neuro Denies abnormal gait, Denies dizziness, Denies frequent falls, Denies numbness, Denies tingling and Denies weakness Endo Denies fatigue and Denies palpitations Physical Exam Vital Signs: Last Vital Signs Pulse 85 11/11/24 14:49 BP 110/56 L 11/11/24 14:49 BMI result Body Mass Index 29.9 GENERAL APPEARANCE: in no acute distress, pleasant. NECK: no carotid bruit, no jugular venous distention. SKIN: no suspicious lesions, warm and dry. HEART: no murmurs, regular rate and rhythm. LUNGS: clear to auscultation bilaterally. ABDOMEN: soft, nontender. EXTREMITIES: no edema. Right groin no evidence of hematoma/pseudoaneurysm. No tenderness around access sites. PERIPHERAL PULSES: equal. NEUROLOGIC: No gross deficits, AAO X 3 Office Procedures EKG Details: Sinus rhythm 85 beats per minute, normal axis, inferior infarct, QTC 487 milliseconds. [id number], Complete Assessment & Plan Assessment & Plan (1) S/P TAVR (transcatheter aortic valve replacement): Code(s): Z95.2 - Presence of prosthetic heart valve Category: Surgical Plan [age] year female who is here for follow-up. She is status post transcatheter aortic valve replacement for severe aortic valve stenosis. She has done very well and has significant improvement in her symptoms. No chest discomfort shortness of breath. Clinically not in heart failure. Starting her on Plavix 75 mg daily. She will get blood workup today post TAVR. Clinically doing quite well. I have advised her that she will need amoxicillin before dental workup. Follow-up in few months. Thank you for allowing me to participate in the care of your patient. Please feel free to contact me if you have any questions. Orders: Orders CA echo transthoracic complete 10/30/24 Z95.2 - Presence of prosthetic heart valve Complete Blood Count Auto Diff Today I35.0 - Nonrheumatic aortic (valve) stenosis Basic Metabolic Panel Today I35.0 - Nonrheumatic aortic (valve) stenosis Medications: New amoxicillin Take 4 tablets 30-60 mins before dental procedure. Save rest for next dental procedure. 2,000 mg (4 x 500 mg) PO ONCE 20 tabs 0RF I35.0 - Nonrheumatic aortic (valve) stenosis furosemide (Lasix) 20 mg PO DAILY 90 tabs 3RF I35.0 - Nonrheumatic aortic (valve) stenosis clopidogrel 75 mg PO DAILY 90 tabs 3RF I35.0 - Nonrheumatic aortic (valve) stenosis Coding Level of Care Code Est Pt Level 4 (86301) Complex EM visit Add On G2211 Diagnoses S/P TAVR (transcatheter aortic valve replacement) Z95.2 CPT Codes EKG - CPT: 69736-[id number], Complete ([id number])
[2024-11-11 14:49] VITALS: BP 110/56; PULSE 85; BMI 29.9
== END 2024-11-11 15:25 | disposition home or self-care (01) ==
LOC: HO.HCS 14:31
PROVIDERS: PCP Internal Medicine; Visit Provider Internal Medicine Cardiovascular Disease
DX: Z95.2 Presence of prosthetic heart valve (principal)
CPT/HCPCS: 93010; 99214; G2211

== ENCOUNTER → 2024-11-11 14:30 | Outpatient (BNVA) | payer MEDICARE, SELFPAY | PROVIDERS: PCP Internal Medicine; Visit Provider Internal Medicine Cardiovascular Disease | DX: Z95.2 Presence of prosthetic heart valve (principal); Z98.890 Other specified postprocedural states | CPT/HCPCS: 93005; 99212 ==

== ENCOUNTER 2024-11-13 06:08 | Outpatient (REF) | payer MEDICARE, SELFPAY ==
[2024-11-13 06:21] LABS: MANUAL DIFF FLAG NO
[2024-11-13 07:19] LABS: Eosinophils Absolute Auto 0.1 X10*3/uL (0.0-0.4); Eosinophils Percent Auto 2.9 % (0-4); Hematocrit 32.9 % (37.0-47.0); Hemoglobin 10.7 g/dl (12.0-16.0); Imm Gran Abs Auto 0.01 X10*3/uL (0.00-0.03); Imm Gran Pct Auto 0.3 % (0.0-0.4); Lymphocytes Percent Auto 31.5 % (20-40); Mean Corpuscular HGB Conc 32.5 g/dl (31.0-35.0); Mean Corpuscular Hemoglobin 27.8 pg (27.0-33.0); Mean Corpuscular Volume 85.5 fL (80.0-98.0); Mean Platelet Volume 12.4 fL (9.4-12.3); Monocytes Absolute Auto 0.3 X10*3/uL (0.1-1.2); Monocytes Percent Auto 10.4 % (2-11); Neutrophils Absolute Auto 1.7 x10*3/uL (2.0-8.3); Neutrophils Percent Auto 53.9 % (45-73); Platelet Count 80 X10*3/uL (160-400); Red Blood Count 3.85 X10*6/uL (4.20-5.50); Red Cell Distribution Width 14.5 % (11.0-16.0); White Blood Count 3.1 X10*3/uL (4.8-10.8)
[2024-11-13 07:41] LABS: Anion Gap 11 (12-20); Blood Urea Nitrogen 12 mg/dL (9-16); Carbon Dioxide 23 mmol/L (22-29); Chloride 108 mmol/L (96-108); Cholesterol 102 mg/dL (<200); Estimated Glomerular Filt Rate > 60; Glucose Random 110 mg/dL (60-115); HDL Cholesterol 45 mg/dL (>40); LDL Cholesterol Calculated 47 mg/dL (<100); Sodium 138 mmol/L (135-145); Triglycerides 54 mg/dL (<150)
== END 2024-11-13 06:09 | disposition home or self-care (01) ==
LOC: HO.LAB 06:08
PROVIDERS: PCP Internal Medicine; Visit Provider Internal Medicine Cardiovascular Disease
DX: I35.0 Nonrheumatic aortic (valve) stenosis (principal); I25.10 Atherosclerotic heart disease of native coronary artery without angina pectoris
CPT/HCPCS: 36415; 80048; 80061; 85025

== ENCOUNTER 2024-11-27 10:43 | Outpatient (REF) | payer MEDICARE, SELFPAY ==
[2024-11-27 10:48] LABS: MANUAL DIFF FLAG NO
[2024-11-27 11:08] LABS: Hematocrit 34.6 % (37.0-47.0); Hemoglobin 11.7 g/dl (12.0-16.0); Imm Gran Abs Auto 0.01 X10*3/uL (0.00-0.03); Imm Gran Pct Auto 0.3 % (0.0-0.4); Lymphocytes Absolute Auto 1.0 X10*3/uL (1.2-4.9); Mean Corpuscular HGB Conc 33.8 g/dl (31.0-35.0); Mean Corpuscular Hemoglobin 28.4 pg (27.0-33.0); Mean Corpuscular Volume 84.0 fL (80.0-98.0); NRBC Abs Auto 0.000 X10*3/uL (0.0-0.012); NRBC Pct Auto 0.0 /100WBC (0.0-0.2); Red Blood Count 4.12 X10*6/uL (4.20-5.50); White Blood Count 3.3 X10*3/uL (4.8-10.8)
[2024-11-27 11:09] LABS: Platelet Count 73 X10*3/uL (160-400)
[2024-11-27 11:23] LABS: Alanine Aminotransferase 9 U/L (0-31); Albumin Level 3.9 g/dL (3.5-5.0); Alkaline Phosphatase 59 U/L (39-117); Anion Gap 11 (12-20); Aspartate Amino Transferase 34 U/L (5-31); Blood Urea Nitrogen 10 mg/dL (9-16); Calcium 9.6 mg/dL (8.4-10.2); Carbon Dioxide 27 mmol/L (22-29); Chloride 106 mmol/L (96-108); Cholesterol 105 mg/dL (<200); Estimated Glomerular Filt Rate > 60; HDL Cholesterol 41 mg/dL (>40); Iron 47 mcg/dL (30-160); Percent Iron Saturation 16 % (15-50); Potassium 4.0 mmol/L (3.3-5.1); Sodium 140 mmol/L (135-145); Total Iron Binding Capacity 286 mcg/dL (228-428); Total Protein 6.2 g/dL (6.5-8.0); Triglycerides 75 mg/dL (<150); Unsaturated Iron Binding 239 ug/dL
--- OUTSIDE RECORDS SUMMARY | 2024-11-27 11:23 | XMS_ITS | Patient Health Record ---
Author Organization [facility] Address [address] [place] [address] Care Team Providers Care Pasteuriser Operator Name Role Phone Christian Lewis MD Primary Care Provider Maite Mayfield Unavailable [phone] Allergies No Known Allergies Reason For Referral [...] Date [employer] [place] Medicare Advantage [address] [facility] [address] [phone] [id number] Mary Lou Celestin Self - patient is the insured Medical (General) History Medical History History ICD Code High blood pressure Scarlet fever thyroid Chicken pox Surgical History Surgery Date(Month/Year) hysterectomy 1985 knee surgery, left shoulder surgery right stomach surgery 1995 brain aneurysm 2007 colonoscopy 05/29/23
--- OUTSIDE RECORDS SUMMARY | 2024-11-27 11:23 | XMS_ITS | Clinical Summary ---
Author Organization [facility] Address [address] [place] [address] Care Team Providers Care Design Coordinator Name Role Phone Unavailable Primary Care Provider [...]
--- OUTSIDE RECORDS SUMMARY | 2024-11-27 11:23 | XMS_ITS | Patient Health Record ---
Author Organization [facility] Address [address] [place] [address] Care Team Providers Care Inspector Raw Quartz Name Role Phone Christian Lewis MD Primary Care Provider Gilberto Hollingsworth [phone] Allergies Allergen (clinical drug ingredient) Drug/Non Drug Allergy documented on EMR Reaction Allergy Type Onset Date Status Lisinopril cough Drug Allergy Active Results Component Value Reference Range Notes Ferritin Reviewed date:07/05/2024 03:39:42 PM Interpretation: Performing Lab:[facility], [address] [place] [id number] Notes/Report: Ferritin 41 10-250 ng/mL Pathology Reviewed date:07/01/2024 07:47:55 PM Interpretation: Performing Lab:[address] [address] Notes/Report: Complete Blood Count Auto Di ff (Not yet reviewed by provider) Interpretation: Performing Lab:[address] [address] Notes/Report: White Blood Count 3.5 4.8-10.8 X10*3/uL [...] PROFILE Reviewed date:07/05/2024 03:39:35 PM Interpretation: Performing Lab:[facility], [address] [place] [id number] Notes/Report: Iron 41 30-160 mcg/dL Total Iron Binding Capacity 312 228-428 mcg/d L Percent Iron Saturation 13 15-50 % Unsaturated Iron Binding 271 US abdomen comp w elastograp hy Reviewed date:08/22/2024 04:09:38 PM Interpretation: Performing Lab: Notes/Report: [address] [address] Ultrasound Report Signed Patient: Mary Lou Celestin MR#: [id number] : 1945 Acct:[id number] Age/Sex: 79 / F ADM Date: 08/05/24 Loc: HO.US Attending Dr: Gilberto Hernandez MD Ordering Physician: Gilberto Hernandez MD Date of Service: 08/05/24 Procedure(s): US abdomen comp w elastography Accession Number(s): [id number] cc: Christian Lewis MD; Gilberto Hernandez MD [...] 08/06/24 1231 DD/ 0900 TD/TT: 08/05/24 0945 Tier Over: US duplex arterial venous co mp Reviewed date:08/22/2024 04:10:36 PM Interpretation: Performing Lab: Notes/Report: [address] [address] Ultrasound Report Signed Patient: Mary Lou Celestin MR#: [id number] : 1945 Acct:[id number] Age/Sex: 79 / F ADM Date: 08/05/24 Loc: HO.US Attending Dr: Gilberto Hernandez MD Ordering Physician: Gilberto Hernandez MD Date of Service: 08/05/24 Procedure(s): US duplex arterial venous comp Accession Number(s): [id number] cc: Christian Lewis MD; Gilberto Hernandez MD [...] 08/06/24 1231 DD/ 0900 TD/TT: 08/05/24 0945 Tier Over: Reason For Referral No Information Medications Medication [...] Once a day Active Ursodiol 500 MG TAKE 2 TABLETS BY [facility] EVERY MORNING AND TAKE 1 TABLET BY MOUTH EVERY EVENING for 90 Active Levothyroxine Sodium 100 MCG 1 tablet in the morning on an empty stomach Orally Once a day Active Valsartan-hydroCHLOROthiazid e 160-12.5 MG 1 tablet Orally Once a day Active Omeprazole 40 MG TAKE 1 CAPSULE BY [facility] TWICE A DAY for 90 Active Iron (Ferrous Sulfate) 325 [...] Notes Problem Gastro-esophageal reflux disease without esophagitis (199155419) Gastro-esophageal reflux disease without esophagitis (K21.9) Active confirmed Problem 829645496 Encounter for screening for malignant neoplasm of colon (Z12.11) Active confirmed Problem 569494098 History of adenomatous polyp of colon (Z86.010) Active confirmed Problem History of polyp of colon (situation) (135984145) Personal history of colonic polyps (Z86.010) Active confirmed Problem Anemia due to chronic blood loss (disorder) (197122748) Iron deficiency anemia secondary to blood loss (chronic) (D50.0) Active confirmed Problem 8147610489761122 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) Active confirmed Problem Diverticular disease of colon (313796039) Diverticulosis of large intestine without perforation or abscess without bleeding (K57.30) Active confirmed Problem 19705231 Other cirrhosis of liver (K74.69) Active confirmed Problem Screening for malignant neoplasm of rectum (588680839) Encounter for screening for malignant neoplasm of rectum (Z12.12) Active confirmed Problem Duodenitis (63990478) Duodenitis (K29.80) Active confirmed Problem Gastroesophageal reflux disease (475153657) Gastroesophageal reflux disease (K21.9) Active confirmed Problem Iron deficiency anemia (83822658) Iron deficiency anemia (D50.9) Active confirmed Problem 976306580 Gastroesophageal reflux disease without esophagitis (K21.9) Active confirmed Problem 995523238 Elevated liver enzymes (R74.8) Active confirmed Problem 913784579 Barretts esophag us without dysplasia (K22.70) Active confirmed Problem 921056686 Fatty liver (K76.0) Active confirmed Problem Gastric polyp (65285831) Gastric polyp (K31.7) Active confirmed Problem Benign neoplasm of stomach (87121038) Gastric polyps (K31.7) Active confirmed Problem Anemia (555585748) Anemia (D64.9) Active confir med Problem Benign neoplasm of small intestine (56775918) 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 Problem 371388456 Elevated alpha fetoprotein (R77.2) Active confirmed Problem Gastritis (6321231) Gastritis (K29.70) Active c onfirmed Problem 38705314 Iron deficiency anemia, unspecified iron deficiency anemia type (D50.9) Active confirmed Problem Ennis esophagus (043828591) 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) Active confirmed Problem 3561218114860031 Barretts esopha eddie with low grade dysplasia (K22.710) Active confirmed Problem 42253065 Liver fibrosis (K74.0) Active confirmed Problem 218094277 Positive MANDY (antinuclear antibody) (R76.8) Active confirmed Problem 98015338 Liver fibrosis (K74.00) Active confirmed Vital Signs Temperature 96.9 degrees Fahrenheit 07/01/2024 Blood pressure diastolic 01 mm Hg 07/01/2024 Height 65.25 in 07/01/2024 Blood pressure systolic 001 mm Hg 07/01/2024 Weight 192 lbs 07/01/2024 BMI 31.7 kg/m2 07/01/2024 Encounters Encounter Location Date Provider Diagnosis [facility] Inpatient [address] [place], [place] [id number] 06/25/2024 Gilberto Hernandez [facility] [address] [place] [phone] 07/01/2024 Gilbreto Hernandez Barretts esophagus without dysplasia K22.70 ; Other cirrhosis of liver K74.69 ; Fatty liver K76.0 ; Iron deficiency anemia, unspecified iron deficiency anemia type D50.9 and Duodenal adenoma D13.2 [facility] [address] [place] [phone] 03/17/2024 Gilberto Hernandez [facility] [address] [place] [address] [address] [place] [phone] 07/21/2024 Gilberto Hernandez Anemia D64.9 [facility] [address] [address] 08/12/2024 Gilberto Hernandez Assessments Encounter Date Diagnosis [...] Name Order Date Hemoccult Cards (Non-Screening) 03/14/20 LIVER PROFILE 03/27/2022 LIVER PROFILE 08/10/2018 LIVER PROFILE 02/12/2023 LIVER PROFILE 03/14/2021 LIVER PROFILE 10/17/2019 IRON + IBC (FE) 07/01/2024 IRON + IBC (FE) 08/08/2021 IRON + IBC (FE) 07/21/2024 CBC w DIFF 03/27/2022 CBC w DIFF 08/10/2018 CBC w DIFF 02/12/2023 CBC w DIFF 07/01/2024 CBC w DIFF 08/08/2021 CBC w DIFF 07/21/2024 CBC w DIFF 10/17/2019 PROTHROMBIN TIME (PT, INR) 10/17/2019 PROTHROMBIN TIME (PT, INR) 03/27/2022 PROTHROMBIN TIME (PT, INR) 08/10/2018 PROTHROMBIN TIME (PT, INR) 03/14/2021 ALPHA-FETOPROTEIN,TUMOR MARKER 1 ALPHA-FETOPROTEIN,TUMOR MARKER 0 ALPHA-FETOPROTEIN,TUMOR MARKER 3 ALPHA-FETOPROTEIN,TUMOR MARKER 2 MRI ABD W&WO CONTRAST 10/17/2019 US ABD 03/14/2021 US ABD 03/27/2022 Complete Blood Count Auto Diff 5 Prothrombin [...] 03/27/2022 COLONOSCOPY 02/12/2023 Next Appt Details Provider Name:Gilbreto Baer Mary , 02/02/2025 09:50:00 AM, [address], [address], [place], [address], Insurance Providers Payer Name Payer Address Payer Phone Subscriber Number Group Number Insured Name Patient Relationship to Insured Coverage Start Date Coverage End Date [facility] [address] [facility] [place] A DIA [phone] [id number] MARY LOU CELESTIN Self - patient is the insured Medical (General) History Medical History History ICD Code GERD with Ennis's esophagu s-areas of high and low grade dysplasia seen in Fall of 2009-has been going to [facility] and Dr. Ferrer for ablation Rx of the Ennis's-most recent Rx was 01/2012-biopsies in 11/2011 showed the Ennis's, but no dysplasia Hypothyroidism HTN Hyperlipidemia Tubular adenomas removed from colon in and 2011 Denies MD,DM,CVA,Lung disease,renal dise ase Brain aneurysm with Agram and clipping i n 12/2007 Duodenal tubular adenoma removed in 2009 . Most recent EGD in [facility] s in 09/2012--Bx from 35 to 27 cm all neg for Ennis's esophagus nor dysplasia-same HH noted EGD 04/2013 with me at [facility]-- small areas of Ennis's mucosa, but no [...]
--- OUTSIDE RECORDS SUMMARY | 2024-11-27 11:24 | XMS_ITS | Patient Health Record ---
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 Name Role Phone Christian Lewis Primary Care Provider [phone] Allergies Allergen (clinical drug ingredient) Drug/Non Drug Allergy documented on EMR Reaction Allergy Type Onset Date Status Lisinopril cough Drug Allergy Active Results Component Value Reference Range Notes Complete Blood Count Auto Di ff Reviewed date:05/29/2024 05:42:16 PM Interpretation: Performing Lab:[facility], [address] [place] [phone] Notes/Report: White Blood Count 3.5 4.8-10.8 X10*3/uL [...] PROFILE Reviewed date:05/28/2024 05:57:56 PM Interpretation: Performing Lab:[facility], [address] [place] [address] Notes/Report: Iron 30 30-160 mcg/dL Total Iron Binding Capacity 318 228-428 mcg/dL Percent Iron Saturation 9 15-50 % Unsaturated Iron Binding 288 TSH reflex Free T4 Reviewed date:05/28/2024 05:56:34 PM Interpretation: Performing Lab:[facility], [address] [place] [phone] Notes/Report: TSH reflex Free T4 4.87 0.32-4.0 uIU/mL Complete Blood Count Auto Di ff Reviewed date:07/17/2024 12:39:24 PM Interpretation: Performing Lab:[address] [address] Notes/Report: White Blood Count 3.5 4.8-10.8 X10*3/uL [...] t Reviewed date:07/24/2024 12:06:18 PM Interpretation: Performing Lab:[facility], [address] [place] [phone] Notes/Report: Urine, Clean Catch Color Urine Yellow Appearance Urine Clear PH 6.0 5.0-9.0 Glucose Urine UA Negative Negative mg/dL Urine Blood Negative Negative Specific Debary - Urine 1.015 1.005-1.025 Urine Protein Negative Neg-Trace mg/dL Urine Ketones Negative Negative mg/dL Nitrite Urine Negative Negative Leukocyte Esterase Urine Small (1+) Negative RBC Urine 0-2 0-2 /HPF WBC Urine 6-10 0-5 /HPF Squamous Epithelial Cell Urine 3-5 0-2 /HPF Bacteria Urine None Seen None Seen Hyaline Casts Urine 0-2 0-2 /LPF Complete Blood Count Auto Di ff (Not yet reviewed by provider) Interpretation: Performing Lab:[facility], [address] [place] [address] [facility] [place] [address] Notes/Report: White Blood Count 3.3 4.8-10.8 X10*3/uL [...] 0.0-0.2 /100WBC Neutrophils Absolute Auto 1.8 2.0-8.3 x10*3/uL Imm Gran Abs Auto 0.01 0.00-0.03 X10*3/uL Lymphocytes Absolute Auto 1.0 1.2-4.9 X10*3/uL Monocytes Absolute Auto 0.3 0.1-1.2 X10*3/uL Eosinophils Absolute Auto 0.1 0.0-0.4 X10*3/uL Basophils Absolute Auto 0.0 0.0-0.2 X10*3/uL NRBC Abs Auto 0.000 0.0-0.012 X10*3/uL Occult Blood, Stool, Guaiac Reviewed date:12/03/2023 01:27:30 PM Interpretation:Negative Performing Lab: Notes/Report: Negative Occult Blood, Stool, Guaiac Neg MM tomosynthesis diagnostic BI Reviewed date:02/24/2024 10:15:18 AM Interpretation: Performing Lab: Notes/Report: [facility] [address] [place] [address] Mammography Report Signed Patient: Mary Lou Celestin MR#: [id number] : 1945 Acct:[id number] Age/Sex: 78 / F ADM Date: 02/24/24 Loc: HO.MAMMO Attending Dr: Christian Lewis MD Ordering Physician: Christian Lewis MD Results: 1Ne gative Date of Service: 02/24/24 Follow Up: 1 Year From [facility] ina Mammogram Procedure(s): MM tomosynthesis diagnostic BI Accession Number(s): [id number] cc: Christian Lewis MD EXAMINATION: MM DIAGNOSTIC [...] Kelly MD in OV> 02/24/24 0953 DD/ 0810 TD/TT: 02/24/24 0845 Computer Systems Technology Instructor: [place] [facility] [address] [place] [address] Mammography Report Signed Patient: Mary Lou Celestin MR#: [id number] : 1945 Acct:[id number] Age/Sex: 78 / F ADM Date: 02/24/24 Loc: HO.MAMMO Attending Dr: Christian Lewis MD Ordering Physician: Christian Lewis MD Results: 1Ne gative Date of Service: 02/24/24 Follow Up: 1 Year From [facility] Mammogram Procedure(s): MM tomosynthesis diagnostic BI Accession Number(s): [id number] cc: Christian Lewis MD EXAMINATION: MM DIAGNOSTIC [...] MD in OV> 02/24/24 0953 DD/ TD/TT: 02/24/24 0845 Computer Systems Technology Instructor: US breast LT limited mamm on ly Reviewed date:02/24/2024 10:16:05 AM Interpretation: Performing Lab: Notes/Report: [facility] [address] [place] [address] Ultrasound Report Signed Patient: Mary Lou Celestin MR#: [id number] : 1945 Acct:[id number] Age/Sex: 78 / F ADM Date: 02/24/24 Loc: HO.MAMMO Attending Dr: Christian Lewis MD Ordering Physician: Christian Lewis MD Date of Service: 02/24/24 Procedure(s): US breast LT limited mamm only Accession Number(s): [id number] cc: Christian Lewis MD EXAMINATION: MM DIAGNOSTIC [...] in OV> 02/24/24952 DD/ 9 TD/TT: 02/24/24917 Computer Systems Technology Instructor: [place] [facility] [address] [place] [address] Ultrasound Report Signed Patient: Mary Lou Celestin MR#: [id number] : 1945 Acct:[id number] Age/Sex: 78 / F ADM Date: 02/24/24 Loc: HO.MAMMO Attending Dr: Christian Lewis MD Ordering Physician: Christian Lewis MD Date of Service: 02/24/24 Procedure(s): US neena ast LT limited mamm only Accession Number(s): [id number] cc: Christian Lewis MD EXAMINATION: MM DIAGNOSTIC [...] patient stat es older . COMPARISON: Mammography: 02/19/20, 02/12/2022, 02/08/2021, 02/03/2020, and dating back to [...] in OV> 02/24/24952 DD/ 9 TD/TT: 02/24/24917 Computer Systems Technology Instructor: Free T4 (Free Thyroxine) Reviewed date:05/28/2024 05:58:04 PM Interpretation: Performing Lab:[address] [address] Notes/Report: Free T4 (Free Thyroxine) 1.07 0.71-1.85 ng/dL Shabana Hidalgo Reviewed date:05/28/2024 12:21:58 PM Interpretation: Performing Lab:[facility], [address] [place] [address] Notes/Report: Shabana Hidalgo See Note Specimen held untested for 24 hours; Call to request Chemistry testing. Complete Blood Count no Diff Reviewed date:06/24/2024 08:14:18 PM Interpretation: Performing Lab:[facility], [address] [place] [address] Notes/Report: White Blood Count 3.5 4.8-10.8 X10*3/uL [...] ff Reviewed date:07/24/2024 01:01:29 PM Interpretation:07-24-24 Performing Lab:[facility], [address] [place] [address] Notes/Report: White Blood Count 5.9 4.8-10.8 X10*3/uL [...] RETIC Reviewed date:06/24/2024 07:58:43 PM Interpretation: Performing Lab:[facility], [address] [place] [address] Notes/Report: Reticulocytes Absolute 0.058 0.026-0.0 95 X10*6/uL Immature Retic Fraction 18.4 3.0-15.9 % Retic HGB Equivalent 16.7 30.0-35.0 pg Reticulocyte Percent 2.6 0.5-1.8 % Pathologist Review - CBC Reviewed date:06/24/2024 08:00:48 PM Interpretation: Performing Lab:[facility], [address] [place] [address] Notes/Report: Pathologist Review - CBC Chronic microcytic hypochromic anemia and thrombocytopenia, consistent with the patient's probable GI bleed, low iron, and low B12. Prothrombin Time INR Reviewed date:06/23/2024 07:23:21 PM Interpretation: Performing Lab:[facility], [address] [place] [phone] Notes/Report: Prothrombin Time 12.7 10.9-12.4 SEC INTERNATIONAL [...] Panel Reviewed date:06/24/2024 08:01:48 PM Interpretation: Performing Lab:[address] [address] Notes/Report: Sodium 139 135-145 mmol/L Potassium 3.4 [...] Magnesium Reviewed date:06/24/2024 08:01:22 PM Interpretation: Performing Lab:[facility], [address] [place] [address] Notes/Report: Magnesium 1.7 1.6-2.6 mg/dL IRON PROFILE Reviewed date:06/24/2024 08:00:23 PM Interpretation: Performing Lab:[facility], [address] [place] [address] Notes/Report: Iron 14 30-160 mcg/dL Total Iron Binding Capacity 340 228-428 mcg/dL Percent Iron Saturation 4 15-50 % Unsaturated Iron Binding 326 Ferritin Reviewed date:06/24/2024 07:59:10 PM Interpretation: Performing Lab:[facility], [address] [place] [phone] Notes/Report: Ferritin 10 10-250 ng/mL Troponin-I High Sensitivity Reviewed date:06/23/2024 07:16:34 PM Interpretation: Performing Lab:[facility], [address] [place] [address] Notes/Report: Troponin-I High Sensitivity 212.8 <3.5-17.0 ng/L Critical value for test(s): TROP Results called to and read back by: AVIS Person calling: KENNETH Date: 06/23/24 Time: 1622 The Lopes high sensitivity Troponin-I results should be used in conjunction with other diagnostic information such as ECG, clinical observations and information, and patient symptoms to aid in the diagnosis of HI. B Type Natriuretic Peptide Reviewed date:06/23/2024 07:16:53 PM Interpretation: Performing Lab:[facility], [address] [place] [phone] Notes/Report: B Type Natriuretic Peptide 441 <100 pg/mL For those patients who are being treated with Natrecor (nesiritide, recombinant BNP), BNP testing should be performed at least two hours post treatment in order to ensure that only endogenous levels of BNP are detected. Urine Culture Reviewed date:06/25/2024 01:01:20 PM Interpretation: Performing Lab:[facility], [address] [place] [phone] Notes/Report: O:ESCCOL Escherichia coli Urine Culture Quant Urine Culture > 100,000 cfu/mL Ampicillin <=2 Cefazolin (Urine) <=1 Cefepime <=0.12 Ceftriaxone <=0.25 Ciprofloxacin <=0.06 Gentamicin <=1 Nitrofurantoin <=16 Trimethoprim/Sulfametho xazole <=20 SLIDE REVIEW Reviewed date:06/24/2024 08:04:16 PM Interpretation: Performing Lab:[facility], [address] [place] [phone] Notes/Report: SLIDE REVIEW VERIFIED Type and Screen Reviewed date:06/24/2024 07:58:52 PM Interpretation: Performing Lab:[facility], [address] [place] [address] Notes/Report: mL/HR Rate to transfuse BBK Product [...] Time Test Result Flag Normal Range 06/23/24 183 HGB 4.9 *L 12.0-16.0 g/dl Results of [...] t Reviewed date:06/25/2024 01:01:34 PM Interpretation: Performing Lab:[facility], [address] [place] [phone] Notes/Report: [id number] Urine, Clean Catch Color Urine Yellow Appearance Urine Cloudy PH 6.0 5.0-9.0 Glucose Urine UA Negative Negative mg/dL Urine Blood Moderate (2+) Negative Specific Debary - Urine 1.020 1.005-1.025 Urine Protein 100 (2+) Neg-Trace mg/dL Urine Ketones Negative Negative mg/dL Nitrite Urine Positive Negative Leukocyte Esterase Urine Moderate (2+) Negative RBC Urine 11-20 0-2 /HPF WBC Urine >50 0-5 /HPF Squamous Epithelial Cell Urine 0-2 0-2 /HPF Bacteria Urine 4+ None Seen Hyaline Casts Urine 3-5 0-2 /LPF Red Blood Cells Reviewed date:06/24/2024 07:58:59 PM Interpretation: Performing Lab:[address] [address] Notes/Report: Red Blood Cells [id number] ON RC Red Blood Cells TRANSFUSED 06/23/24 1810 Red Blood Cells [id number] ON RC Red Blood Cells TRANSFUSED 06/23/24 2232 Red Blood Cells [id number] ON RC Red Blood Cells TRANSFUSED 06/24/[address] gi bleed abd pel wo/w con Reviewed date:06/24/2024 08:00:12 PM Interpretation: Performing Lab: Notes/Report: [address] [address] [address] Scan Report Signed Patient: Mary Lou Celestin MR#: [id number] : 1945 Acct:[id number] Age/Sex: 78 / F ADM Date: 06/23/24 Loc: HO.ED Attending Dr: Ordering Physician: Kleber Skaggs MD Date of Service: 06/23/24 Procedure(s): CT gi bleed abd pel wo/w IVcon Accession Number(s): [id number] cc: Christian Lewis MD; Kleber Skaggs MD Report Number: [id number]: Total DLP = 1740.00 mGy-cm CLINICAL HISTORY: [...] in OV> 06/23/242239 DD/ 38 TD/TT: 06/23/242238 Computer Systems Technology Instructor: [place] [address] CT Scan Report Signed Patient: Mary Lou Celestin MR#: [id number] : 1945 Acct:[id number] Age/Sex: 78 / F ADM Date: 06/23/24 Loc: .ED Attending Dr: Ordering Physician: Kleber Skaggs MD Date of Service: 06/23/24 Procedure(s): CT gi bleed abd pel wo/w IVcon Accession Number(s): [id number] cc: Christian Lewis MD; Kleber Skaggs MD Report Number: [id number]: Total DLP = 1740.00 mGy-cm CLINICAL HISTORY: [...] in OV> 06/23/242239 DD/ 38 TD/TT: 06/23/242238 Computer Systems Technology Instructor: XR chest 1V Reviewed date:06/23/2024 07:16:24 PM Interpretation: Performing Lab: Notes/Report: [address] [address] XRay Report Signed Patient: Mary Lou Celestin MR#: [id number] : 1945 Acct:[id number] Age/Sex: 78 / F ADM Date: 06/23/24 Loc: .ED Attending Dr: Ordering Physician: Kleber Skaggs MD Date of Service: 06/23/24 Procedure(s): XR chest 1V Accession Number(s): [id number] cc: Christian Lewis MD; Kleber Skaggs MD [...] signed by Tia Roach MD in OV> 06/23/24 173 DD/ 29 TD/TT: 06/23/241729 Computer Systems Technology Instructor: [address] [place] [address] XRay Report Signed Patient: Mary Lou Celestin MR#: [id number] : 1945 Acct:[id number] Age/Sex: 78 / F ADM Date: 06/23/24 Loc: .ED Attending Dr: Ordering Physician: Kleber Skaggs MD Date of Service: 06/23/24 Procedure(s): XR janine st 1V Accession Number(s): [id number] cc: Christian Lewis MD; Kleber Skaggs MD [...] signed by Tia Roach MD in OV> 06/23/24 1732 DD/ 1730 TD/TT: 06/23/24 1730 Computer Systems Technology Instructor: Troponin-I High Sensitivity Reviewed date:06/23/2024 07:14:31 PM Interpretation: Performing Lab:[facility], [address] [place] [address] Notes/Report: Troponin-I High Sensitivity 203.1 <3.5-17.0 ng/L Critical value for test(s): HSTNL Results called to and read back by: AVIS Person calling: [facility] Date: 06/23/24 Time: 1857 The Lopes high sensitivity Troponin-I results should be used in conjunction with other diagnostic information such as ECG, clinical observations and information, and patient symptoms to aid in the diagnosis of HI. Complete Blood Count Auto Di ff Reviewed date:06/24/2024 08:13:35 PM Interpretation: Performing Lab:[facility], [address] [place] [phone] Notes/Report: White Blood Count 4.6 4.8-10.8 X10*3/uL [...] Hematocrit Reviewed date:06/24/2024 08:13:51 PM Interpretation: Performing Lab:[facility], [address] [place] [address] Notes/Report: Hemoglobin 7.1 12.0-16.0 g/dl Hematocrit 22.9 37.0-47.0 % Comprehensive Met. Panel Reviewed date:06/24/2024 08:12:56 PM Interpretation: Performing Lab:[facility], [address] [place] [address] Notes/Report: Sodium 138 135-145 mmol/L Potassium 3.8 [...] Folate Reviewed date:06/24/2024 08:10:23 PM Interpretation: Performing Lab:[address] [address] Notes/Report: Vitamin B12 151 200-900 pg/mL NORMAL 200-900 PG/ML INDETERMINATE 160-199 PG/ML DEFICIENT < 160 PG/ML Folate 10.4 > or = 4.0 ng/mL Reference Values: > or = 4.0 ng/mL < 4.0 ng/mL suggests folate deficiency Methotrexate, aminopterin and folinic acid (leucovorin) are chemotherapeutic agents whose molecular structures are similar to folate; therefore, the [employer] folate assay cannot be used for patients using these drugs. Parietal Cell Antibody Reviewed date:07/01/2024 05:42:15 PM Interpretation: Performing Lab:[address] [address] Notes/Report: Parietal Cell Antibody <=20.0 <=20.0 Unit [...] these patients. THIS TEST WAS PERFORMED AT: [facility] [place] [address] [place] [address] ROSSY CHIN MD,PHD Complete Blood Count Auto Di ff Reviewed date:06/25/2024 07:55:45 AM Interpretation: Performing Lab:[facility], [address] [place] [address] Notes/Report: White Blood Count 4.0 4.8-10.8 X10*3/uL [...] Panel Reviewed date:06/25/2024 07:55:15 AM Interpretation: Performing Lab:[facility], [address] [place] [address] Notes/Report: Sodium 137 135-145 mmol/L Potassium 3.3 [...] Peptide Reviewed date:06/25/2024 12:57:23 PM Interpretation: Performing Lab:[facility], [address] [place] [address] Notes/Report: B Type Natriuretic Peptide 534 <100 pg/mL For those patients who are being treated with Natrecor (nesiritide, recombinant BNP), BNP testing should be performed at least two hours post treatment in order to ensure that only endogenous levels of BNP are detected. Pathology Reviewed date:06/29/2024 12:33:30 PM Interpretation: Performing Lab:[facility], [address] [place] [address] Notes/Report: --- Name: Frances Celestin Age/Sex: 78/F : 1945 Unit#: [id number] Attend Dr: Mauro Santacruz MD Re06/24/24 Status : DIS IN Location: [facility] 473-1 Disch: 06/26/24 --- SPEC : [id number] RECD: 06/26/24 STATUS: AVI ANNALISA NUM: [id number] RICKIE: 06/25/24-1423 [facility] DR: Gilberto Cheema MD ENTERED: 06/26/24 17 SP TYPE: Surgical [...] microscopic examination, 3 pieces in cassette A. [facility] Copies To: Christian Lewis MD Primary Care Physicians [address] [facility] [address] [place], [place] [phone] Mauro Santacruz MD [address] [place], [place] [phone] Gilberto Cheema MD [facility] [address] [place] [address] [address] [place], [place] [phone] CONTINUED ON NEXT PAGE --- Name: Frances Celestin Age/Sex: 78/F : 1945 Unit#: [id number] Attend Dr: Mauro Santacruz MD Re06/24/24 Status : DIS IN Location: [facility] 473-1 Disch: 06/26/24 --- SPEC : [id number] RECD: 06/26/24 STATUS: AVI FANG NUM: [id number] RICKIE: 06/25/24-1423 [facility] DR: Gilberto Cheema MD ENTERED: 06/26/24- 17 SP TYPE: Surgical OTHR DR: Christian Lewis MD, Jaehyun MD ORDERED: HE Stain/3, Gross Micro L4 --- Signed (signature on file) Estefany Meena 06/29/24 1054 --- END OF REPORT Complete Blood Count Auto Di ff Reviewed date:06/26/2024 02:19:58 PM Interpretation: Performing Lab:[facility], [address] [place] [address] Notes/Report: White Blood Count 3.4 4.8-10.8 X10*3/uL [...] Panel Reviewed date:06/26/2024 10:43:53 AM Interpretation: Performing Lab:[facility], [address] [place] [phone] Notes/Report: Sodium 138 135-145 mmol/L Potassium 3.3 [...] Magnesium Reviewed date:06/26/2024 10:43:34 AM Interpretation: Performing Lab:[facility], [address] [place] [phone] Notes/Report: Magnesium 1.7 1.6-2.6 mg/dL B Type Natriuretic Peptide Reviewed date:06/26/2024 10:43:25 AM Interpretation: Performing Lab:[facility], [address] [place] [phone] Notes/Report: B Type Natriuretic Peptide 704 <100 pg/mL For those patients who are being treated with Natrecor (nesiritide, recombinant BNP), BNP testing should be performed at least two hours post treatment in order to ensure that only endogenous levels of BNP are detected. IRON PROFILE Reviewed date:07/03/2024 12:33:32 PM Interpretation: Performing Lab:[facility], [address] [place] [phone] Notes/Report: Iron 41 30-160 mcg/dL Total Iron Binding Capacity 312 228-428 mcg/dL Percent Iron Saturation 13 15-50 % Unsaturated Iron Binding 271 Ferritin Reviewed date:07/03/2024 12:33:21 PM Interpretation: Performing Lab:[facility], [address] [place] [phone] Notes/Report: Ferritin 41 10-250 ng/mL Urine Culture Reviewed date:07/26/2024 02:52:40 PM Interpretation: Performing Lab:[facility], [address] [place] [address] Notes/Report: Urine Culture Report Result Urine Culture < 10,000 cfu/ml Complete Blood Count Auto Di ff Reviewed date:07/27/2024 06:07:45 PM Interpretation: Performing Lab:[facility], [address] [place] [address] Notes/Report: White Blood Count 2.7 4.8-10.8 X10*3/uL [...] RETIC Reviewed date:07/27/2024 05:48:49 PM Interpretation: Performing Lab:[address] [address] Notes/Report: Reticulocytes Absolute 0.160 0.026-0.0 95 X10*6/uL Immature Retic Fraction 21.6 3.0-15.9 % Retic HGB Equivalent 26.2 30.0-35.0 pg Reticulocyte Percent 5.2 0.5-1.8 % Ferritin Reviewed date:07/28/2024 12:21:06 PM Interpretation: Performing Lab:[address] [address] Notes/Report: Ferritin 40 10-250 ng/mL Lactate Dehydrogenase Reviewed date:07/28/2024 12:21:27 PM Interpretation: Performing Lab:[address] [address] Notes/Report: Lactate Dehydrogenase 206 122-220 U/L Immunofixation Pnl, Serum Reviewed date:07/29/2024 07:12:14 PM Interpretation: Performing Lab:[facility], [address] [place] [address] Notes/Report: IgG 760 195-4938 mg/dL IgA 149 70-320 mg/dL IgM 77 50-300 mg/dL THIS TEST WAS PERFORMED AT: [facility] [address] [place] [phone] MEENA CHAMORRO MD Immunofixation Interpretation SEE NOTE Normal pattern. No monoclonal proteins detected. Type and Screen Reviewed date:07/31/2024 12:19:46 PM Interpretation: Performing Lab:[facility], [address] [place] [address] Notes/Report: Witnessed by SAUL Results at Issue Units as of 07/29/24 1103 ... Test View Group: Most Recent HGB HCT Results No results available. Results at Issue Units as of 07/29/24 1304 ... Test View Group: Most Recent HGB HCT Results No results available. Hgb 7-9 gm No Blood Type ON Antibody Screen POSITIVE Red Blood Cells Reviewed date:07/31/2024 12:19:31 PM Interpretation: Performing Lab:[facility], [address] [place] [address] Notes/Report: Red Blood Cells [id number] ON RC Red Blood Cells TRANSFUSED 07/29/24 1302 Red Blood Cells [id number] ON RC Red Blood Cells TRANSFUSED 07/29/24 1101 Red Blood Cells [id number] ON RC Red Blood Cells TRANSFUSED 07/29/24 1302 Red Blood Cells [id number] ON RC Red Blood Cells TRANSFUSED 07/29/24 1101 C ORRECTED REPORT Antibody Identification Reviewed date:07/31/2024 12:19:39 PM Interpretation: Performing Lab:[address] [address] Notes/Report: Antibody Identification [employer] Antibody Identification JKA C ORRECTED REPORT Complete Blood Count no Diff Reviewed date:08/03/2024 04:33:21 PM Interpretation: Performing Lab:[facility], [address] [place] [address] Notes/Report: White Blood Count 2.9 4.8-10.8 X10*3/uL [...] INR Reviewed date:08/02/2024 05:18:51 PM Interpretation: Performing Lab:[facility], [address] [place] [address] Notes/Report: Prothrombin Time 12.3 10.9-12.4 SEC [employer]NATIONAL [...] Panel Reviewed date:08/03/2024 12:05:42 PM Interpretation: Performing Lab:[address] [address] Notes/Report: Sodium 141 135-145 mmol/L Potassium 3.9 [...] date:08/06/2024 04:05:23 PM Interpretation: Performing Lab: Notes/Report: [address] [address] Ultrasound Report Signed Patient: Mary Lou Celestin MR#: [id number] : 1945 Acct:[id number] Age/Sex: 79 / F ADM Date: 08/05/24 Loc: HO.US Attending Dr: Gilberto Cheema MD Ordering Physician: Gilberto Cheema MD Date of Service: 08/05/24 Procedure(s): US abdomen comp w elastography Accession Number(s): [id number] cc: Christian Lewis MD; Gilberto Cheema MD [...] 08/06/24 1231 DD/ 0900 TD/TT: 08/05/24 0945 Computer Systems Technology Instructor: [place] [address] Ultrasound Report Signed Patient: aMry Lou Celestin MR#: [id number] : 1945 Acct:[id number] Age/Sex: 79 / F ADM Date: 08/05/24 Loc: HO.US Attending Dr: Gilberto Cheema MD Ordering Physician: Gilberto Cheema MD Date of Service: 08/05/24 Procedure(s): US abdomen comp w elastography Accession Number(s): [id number] cc: Christian Lewis MD; Gilberto Cheema MD [...] 08/06/24 1231 DD/ 0900 TD/TT: 08/05/24 0945 Computer Systems Technology Instructor: US duplex arterial venous co mp Reviewed date:08/06/2024 04:04:32 PM Interpretation: Performing Lab: Notes/Report: [address] [address] Ultrasound Report Signed Patient: Mary Lou Celestin MR#: [id number] : 1945 Acct:[id number] Age/Sex: 79 / F ADM Date: 08/05/24 Loc: HO.US Attending Dr: Gilberto Cheema MD Ordering Physician: Gilberto Cheema MD Date of Service: 08/05/24 Procedure(s): US duplex arterial venous comp Accession Number(s): [id number] cc: Christian Lewis MD; Gilberto Cheema MD [...] 08/06/24 1231 DD/ 0900 TD/TT: 08/05/24 0945 Computer Systems Technology Instructor: [address] [address] Ultrasound Report Signed Patient: Mary Lou Celestin MR#: [id number] : 1945 Acct:[id number] Age/Sex: 79 / F ADM Date: 08/05/24 Loc: HO.US Attending Dr: Gilberto Cheema MD Ordering Physician: Gilberto Cheema MD Date of Service: 08/05/24 Procedure(s): US dup miah arterial venous comp Accession Number(s): [id number] cc: Christian Lewis MD; Gilberto Cheema MD [...] 08/06/24 1231 DD/ 0900 TD/TT: 08/05/24 0945 Computer Systems Technology Instructor: Complete Blood Count Auto Di ff Reviewed date:08/13/2024 04:27:13 PM Interpretation: Performing Lab:[facility], [address] [place] [phone] Notes/Report: White Blood Count 3.2 4.8-10.8 X10*3/uL [...] ar Reviewed date:08/17/2024 12:18:53 PM Interpretation: Performing Lab:[facility], [address] [place] [phone] Notes/Report: ANEMIA [id number] LEFT ILIAC CREST LLE Interpretation See Note See repor t from [employer] in the EMR. Chromosome Anal. Bone Marrow Reviewed date:08/20/2024 12:50:52 PM Interpretation: Performing Lab:[facility], [address] [place] [phone] Notes/Report: LEFT ILIAC CREST ANEMIA [id number] 1340 Chromosome Anal. Bone Marrow See note See report from [employer] in the EMR. FISH,CLL 11q22.3 Reviewed date:08/27/2024 06:45:39 PM Interpretation: Performing Lab:[facility], [address] [place] [phone] Notes/Report: FISH CLL (Tech only) [employer] FISH,CLL 11q22.3 See Note See report from [employer] in the EMR. Pathology Reviewed date:09/24/2024 12:31:40 PM Interpretation: Performing Lab:[facility], [address] [place] [phone] Notes/Report: --- Name: FawadJohanaFrances miranda Wilson Age/Sex: 79/F [facility] 1945 [id number]#: [id number] Attend Dr: Hoa Olivares MD Re08/13/24 Status : [facility] Location: [facility] Disch: --- SPEC : [id number] RECD : 08/13/24-1400 STATUS: AVI FANG NUM: [id number] RICKIE: 08/13/24-1340 [facility] DR: Tim Perla MD ENTERED: 08/13/24 09 SP TYPE: Surgical OTHR DR: Christian Lewis MD,Hoa KNIGHT ORDERED: Bm Smear, I simona Stain/3, HE Stain/3, Reticulin Stain, Gross Micro L4/2, B Cell, T Cell, Andrew Giemsa/3, IHC, Add. immunos/4, IHC ER/AK/Her2N, Special st. 2/4, Ki-67, Bcl-6, CD5, CD10, Decal Addendum Addendum 1 Entered: 09/24/24 Cytogenetics: Normal female karyotype 46,XX[20] - See report in its entirety in the EMR - Reports/Pathology section as a scanned report (camera icon). If appropriate, a copy has also been sent to the ordering provider's office. Addendum Signed (signature on file) Refugio Lozano MD 09/24/24906 --- Diagnosis A-C. Bone marrow, aspirate, biopsy and [...] Histologic group: Chronic lymphocytic leukemia Biomarker studies: Derrell MICHELLE FISH and cytogenetics pending CONTINUED ON NEXT PAGE --- Name: Frances Celestin miranda Katie Age/Sex: 79/F : 1945 Unit#: [id number] Attend Dr: Hoa Olivares MD Re08/13/24 Status : [facility] Location: [facility] Disch: --- SPEC : [id number] RECD : 08/13/24-1400 STATUS: AVI REJax NUM: [id number] RICKIE: 08/13/24-1340 [facility] DR: Tim Perla MD ENTERED: 08/13/24-14 09 SP TYPE: Surgical OTHR DR: Christian Lewis MD, Renuka MD ORDERED: Bm Smear, I simona Stain/3, HE Stain/3, Reticulin Stain, Gross Micro L4/2, B Cell, T Cell, Andrew Giemsa/3, IHC, Add. immunos/4, IHC ER/AK/Her2N, Special st. 2/4, Ki-67, Bcl-6, CD5, CD10, Decal Clinical History Anemia Microscopic Description No peripheral [...] admixed T-cells by CD20 and CD3 immunostaining, respectively; they aberrantly co-express CD5 and do [...] bone core C. Left iliac bone aspirate CONTINUED ON NEXT PAGE --- Name: Frances Celestin Age/Sex: 79/F : 1945 Unit#: [id number] Attend Dr: Hoa Olivares MD Re08/13/24 Status : [facility] Location: [facility] Disch: --- SPEC : [id number] RECD : 08/13/24-1400 STATUS: AVI [facility] NUM: [id number] RICKIE: 08/13/24-1340 [facility] DR: Tim Perla MD ENTERED: 08/13/24-14 09 SP TYPE: Surgical OTHR DR: Christian Lewis MD, Renuka MD ORDERED: Bm Smear, I simona Stain/3, HE Stain/3, Reticulin Stain, Gross Micro L4/2, B Cell, T Cell, Andrew Giemsa/3, IHC, Add. immunos/4, IHC ER/AK/Her2N, Special st. 2/4, Ki-67, Bcl-6, CD5, CD10, Decal Gross Description Received in three parts. Part [...] results communicated to Dr. Olivares on 08/18/2024 Special studies orde red and performed: iron stain (A, B and C); reticulin stain (B); immunostains for CD2 0, CD3, CD5, CD10, bcl-6 and Ki-67 on C Copies To: Christian Lewis MD [facility] [address] [place] [phone] Tim Perla MD [address] [place] [address] Hoa Olivares MD [facility] Oncology/Hematology [address] [place] [address] CONTINUED ON NEXT PAGE --- Name: Frances Celestin Age/Sex: 79/F : 1945 Unit#: [id number] Attend Dr: Hoa Olivares MD Re08/13/24 Status : [facility] Location: [facility] Disch: --- SPEC : [id number] REC -1400 STATUS: AVI FANG NUM: [id number] RICKIE: 08/13/24-[address]: Tim Perla MD ENTERED: 08/13/24-14 09 SP TYPE: Surgical OTHR DR: Christian Lewis MD, Renuka MD ORDERED: Bm Smear, I simona Stain/3, HE Stain/3, Reticulin Stain, Gross Micro L4/2, B Cell, T Cell, Andrew Giemsa/3, IHC, Add. immunos/4, IHC ER/AK/Her2N, Special st. 2/4, Ki-67, Bcl-6, CD5, CD10, Decal --- Signed (signature on file) Refugio Lozano MD 08/19/24 0944 --- END OF REPORT CT biopsy asp core bone mohan ow Reviewed date:08/21/2024 12:03:15 PM Interpretation: Performing Lab: Notes/Report: [address] [address] [address] Scan Report Signed Patient: Mary Lou Celestin MR#: [id number] : 1945 Acct:[id number] Age/Sex: 79 / F ADM Date: 08/13/24 Loc: HO.SSS Attending Dr: Hoa Olivares MD Ordering Physician: Hoa Olivares MD Date of Service: 08/13/24 Procedure(s): CT biopsy asp core bone marrow Accession Number(s): [id number] cc: Christian Lewis MD; Hoa Olivares MD Report Number: [id number]: Total DLP = 219.00 mGy-cm PROCEDURES: 1. [...] by Tim Perla MD in OV> 08/13/24 1494 DD/ 1254 TD/TT: 08/13/24 1354 Computer Systems Technology Instructor: [address] [address] [address] Scan Report Signed Patient: Mary Lou Celestin MR#: [id number] : 1945 Acct:[id number] Age/Sex: 79 / F ADM Date: 08/13/24 [facility]: [facility] Attending Dr: Hoa Olivares MD Ordering Physician: Hoa Olivares MD Date of Service: 08/13/24 Procedure(s): CT bio psy asp core bone marrow Accession Number(s): [id number] cc: Christian Lewis MD; Hoa Olivares MD Report Number: [id number]: Total DLP = 219.00 mGy-cm PROCEDURES: 1. [...] 08/13/24 1354 DD/ 1254 TD/TT: 08/13/24 1354 Computer Systems Technology Instructor: Complete Blood Count Auto Di ff Reviewed date:08/27/2024 06:36:51 PM Interpretation: Performing Lab:[facility], [address] [place] [phone] Notes/Report: White Blood Count 3.3 4.8-10.8 X10*3/uL [...] RETIC Reviewed date:08/27/2024 06:30:16 PM Interpretation: Performing Lab:[facility], [address] [place] [phone] Notes/Report: Reticulocytes Absolute 0.120 0.026-0.0 95 X10*6/uL Immature Retic Fraction 12.6 3.0-15.9 % Retic HGB Equivalent 32.6 30.0-35.0 pg Reticulocyte Percent 3.2 0.5-1.8 % Ferritin Reviewed date:08/27/2024 06:30:01 PM Interpretation: Performing Lab:[facility], [address] [place] [phone] Notes/Report: Ferritin 36 10-250 ng/mL Lactate Dehydrogenase Reviewed date:08/27/2024 06:29:52 PM Interpretation: Performing Lab:[facility], [address] [place] [phone] Notes/Report: Lactate Dehydrogenase 197 122-220 U/L Vitamin B12 Reviewed date:08/27/2024 06:29:45 PM Interpretation: Performing Lab:[facility], [address] [place] [phone] Notes/Report: Vitamin B12 594 200-900 pg/mL NORMAL 200-900 PG/ML INDETERMINATE 160-199 PG/ML DEFICIENT < 160 PG/ML Haptoglobin Reviewed date:08/27/2024 06:30:08 PM Interpretation: Performing Lab:[facility], [address] [place] [phone] Notes/Report: Haptoglobin 51 63-273 mg/dL PET CT fusion skull to thigh Reviewed date:09/09/2024 12:32:30 PM Interpretation: Performing Lab: Notes/Report: [address] [place] [address] PET Report Signed Patient: Mary Lou Celestin MR#: [id number] : 1945 Acct:[id number] Age/Sex: 79 / F ADM Date: 09/08/24 Loc: HO.PET Attending Dr: Hoa Olivares MD Ordering Physician: Hoa Olivares MD Date of Service: 09/08/24 Procedure(s): PET CT fusion skull to thigh Accession Number(s): [id number] cc: Christian Lewis MD; Hoa Olivares MD EXAMINATION: FLUORINE-18 FDG PET/CT SCAN CLINICAL INFORMATION: Staging of CLL. TECHNIQUE: 65 minutes following the intravenous administration of 17.6 mCi of fluorine 18 FDG, images from the skull base to proximal thigh were obtained using a combined PET/CT scanner with CT scan based attenuation correction. No oral or intravenous contrast was administered. Transverse, coronal, sagittal, and volume reconstruction projections were obtained. The patient's blood glucose as determined by a finger stick, was 92 mg/dL immediately prior to injection. The radiotracer was injected intravenously through the left wrist, without any complications. Total CT exam dose-length product 746 mGy-cm. * These CT images were obtained using dose optimization techniques as appropriate, variously including the following: Automated exposure control * Adjustment of mA and/or kV according to patient size (this includes techniques or standardized protocols for targeted exams where dose is matched to indication/reason for exam; i.e. extremities or head) * Use of iterative reconstruction technique COMPARISON: CT abdomen and pelvis 06/23/2024 FINDINGS: HEAD AND NECK: There is a focal abnormal activity seen in left nasopharynx adjacent to torus tubarias No large intracranial hemorrhage, acute territorial infarct or significant shift of midline structures. There are postsurgical champ in the left para/ supra sellar region from previous intervention. CHEST: Ports and Devices: None Lungs: No abnormal radiotracer uptake. Pleura: No significant pleural effusion. Lymph Nodes: No tracer-avid mediastinal, hilar or internal mammary or axillary lymphadenopathy. Mediastinum: There is no significant pericardial effusion/thickening. Breasts/Chest Wall: No abnormal radiotracer uptake. ABDOMEN/PELVIS: Liver/Biliary System: No focal tracer-avid liver lesion. The gallbladder appears unremarkable. Pancreas: Normal.No pancreatic ductal dilatation seen. Spleen: Spleen is enlarged measuring 20 cm in craniocaudad length. No focal FDG activity seen however there is mild diffuse FDG activity noted.. Adrenal Glands: No abnormal radiotracer uptake. Kidneys: No hydronephrosis, hydroureter or renal calculi bilaterally. There is a bilateral extrarenal kidney pelvises with excluded metabolic activity. Bowel: Moderate scattered stool is seen throughout the colon without distention. The small bowel loops are nondistended. Appendix is not seen. The stomach is nondistended. A small umbilical hernia containing fat is noted Lymph Nodes: No tracer avid retroperitoneal, mesenteric or pelvic and/or groin lymphadenopathy. Pelvic Organs: The urinary bladder is underdistended. MUSCULOSKELETAL: No aggressive lytic or sclerotic process seen. VASCULAR: There is mild atherosclerotic calcification of abdominal aorta. No aneurysmal dilatation. PET/PET CT fusion skull to thigh Impression: Focal FDG activity left posterior nasopharynx. This could be secondary to primary lesion or a lymph node. Splenomegaly. Recommend direct visualization. Rest of the PET CT exam is unremarkable. Electronically signed by: Jeevan De Anda MD 09/09/2024 07:29 AM EDT Dictated By: Jeevan De Anda MD Signed By: <Electronically signed by Jeevan De Anda MD in OV> 09/09/24 0729 DD/ 1130 TD/TT: 09/08/24 1300 Computer Systems Technology Instructor: [place] [address] PET Report Signed Patient: Mary Lou Celestin MR#: [id number] : 1945 Acct:[id number] Age/Sex: 79 / F ADM Date: 09/08/24 Loc: HO.PET Attending Dr: Hoa Olivares MD Ordering Physician: Hoa Olivares MD Date of Service: 09/08/24 Procedure(s): PET CT fusion skull to thigh Accession Number(s): [id number] cc: Christian Lewis MD; Hoa Olivares MD EXAMINATION: FLUORINE-18 FDG PET/ CT SCAN CLINICAL INFORMATION: Staging of CLL. TECHNIQUE: 65 minutes following the intravenous administration of 17.6 mCi of fluorine 18 FDG, fred ges from the skull base to proximal thigh were obtained using a combined PET/CT scanner with CT scan based attenuation correction. No oral or intravenous contrast was administered. Transverse, coronal, sagittal, and volume reconstruction projections were obtained. The patient's blood glucose as determined by a finger stick, was 92 mg/dL immediately prior to injection. The radiotracer was injected intravenously through the left wrist, without any complications. Total CT exam dose-length product 746 mGy-cm. * These CT images we re obtained using dose optimization techniques as appropriate, various ly including the following: Automated exposure control * Adjustment of mA and/or kV according to patient size (this includes techniques or standardized protocols for targeted exams where dose is matched to indication/reason for exam; i.e. extremities or head) * Use of iterative reconstruction technique COMPARISON: CT abdomen and pelvi s 06/23/2024 FINDINGS: HEAD AND NECK: There is a focal abnormal activity seen in left nasopharynx adjacent to torus tubarias No large intracrania l hemorrhage, acute territorial infarct or significant shift of midline structures. There are postsurgical champ in the left para/ paul pra sellar region from previous intervention. CHEST: Ports and Devices: None Lungs: No abnormal radiotracer uptake. Pleura: No significa nt pleural effusion. Lymph Nodes: No tracer-avid mediastinal, hilar or internal mammary or axillary lymphadenopathy. Mediastinum: There i s no significant pericardial effusion/thickening. Breasts/Chest Wall: No abnormal radiotracer uptake. ABDOMEN/PELVIS: Liver/Biliary System : No focal tracer-avid liver lesion. The gallbladder appears unremarkable. Pancreas: Normal.No pancreatic ductal dilatation seen. Spleen: Spleen is enlarged measuring 20 cm in craniocaudad length. No focal FDG activity s een however there is mild diffuse FDG activity noted.. Adrenal Glands: No abnormal radiotracer uptake. Kidneys: No hydronephrosis, hydroureter or renal calculi bilaterally. There is a bilateral extrarenal kidney pelvises with excluded metabolic activity. Bowel: Moderate scattered stool is seen throughout the colon without distention. The smal l bowel loops are nondistended. Appendix is not seen. The stomach is nondistended. A small umbilical hernia containing fat is noted Lymph Nodes: No trac er avid retroperitoneal, mesenteric or pelvic and/or groin lymphadenopathy. Pelvic Organs: The urinary bladder is underdistended. MUSCULOSKELETAL: No aggressive lytic or sclerotic process seen. VASCULAR: There is m ild atherosclerotic calcification of abdominal aorta. No aneurysmal dilatation. PET/PET CT fusion skull to thigh Impression: Focal FD G activity left posterior nasopharynx. This could be secondary to prim torin lesion or a lymph node. Splenomegaly. Recommend direct visualization. Rest of the PET CT e xam is unremarkable. Electronically pilar d by: Jeevan De Anda MD 09/09/2024 07:29 AM EDT RP Dictated By: Jeevan De Anda MD Signed By: <Electronically signed by Jeevan De Anda MD in OV> 09/09/24 0729 DD/ 1130 TD/TT: 09/08/24 1300 Computer Systems Technology Instructor: CHAZ Complete Blood Count no Diff Reviewed date:09/21/2024 12:34:56 PM Interpretation: Performing Lab:[address] [phone] Notes/Report: White Blood Count 3.3 4.8-10.8 X10*3/uL Red Blood Count 3.83 4.20-5.50 X10*6/uL Hemoglobin 10.7 12.0-16.0 g/dl Hematocrit 31.9 37.0-47.0 % Mean Corpuscular Volume 83.3 80.0-98.0 fL Mean Corpuscular Hemoglobin 27.9 27.0-33.0 pg Mean Corpuscular HGB Conc 33.5 31.0-35.0 g/dl Red Cell Distribution Width 14.9 11.0-16.0 % Platelet Count 79 160-400 X10*3/uL Mean Platelet Volume 10.9 9.4-12.3 fL NRBC Pct Auto 0.0 0.0-0.2 /100WBC NRBC Abs Auto 0.000 0.0-0.012 X10*3/uL Ferritin Reviewed date:09/21/2024 01:56:38 PM Interpretation: Performing Lab:[address] [phone] Notes/Report: Ferritin 37 10-250 ng/mL Type and Screen Reviewed date:09/21/2024 04:08:57 PM Interpretation: Performing Lab:[facility], [address] [place] [phone] Notes/Report: Witnessed by ACER Blood Type ON Antibody Screen POSITIVE Antibody Identification Reviewed date:09/21/2024 04:10:50 PM Interpretation: Performing Lab:[facility], [address] [place] [phone] Notes/Report: Antibody Identification JAMIL Haptoglobin Reviewed date:09/21/2024 12:34:38 PM Interpretation: Performing Lab:[facility], [address] [place] [phone] Notes/Report: Haptoglobin 53 63-273 mg/dL Complete Blood Count Auto Di ff Reviewed date:10/19/2024 12:50:32 PM Interpretation: Performing Lab:[facility], [address] [place] [phone] Notes/Report: White Blood Count 4.3 4.8-10.8 X10*3/uL Red Blood Count 3.56 4.20-5.50 X10*6/uL Hemoglobin 10.2 12.0-16.0 g/dl Hematocrit 30.0 37.0-47.0 % Mean Corpuscular Volume 84.3 80.0-98.0 fL Mean Corpuscular Hemoglobin 28.7 27.0-33.0 pg Mean Corpuscular HGB Conc 34.0 31.0-35.0 g/dl Red Cell Distribution Width 15.6 11.0-16.0 % Platelet Count 77 160-400 X10*3/uL Mean Platelet Volume 11.3 9.4-12.3 fL Neutrophils Percent Auto 68.8 45-73 % Imm Gran Pct Auto 0.2 0.0-0.4 % Lymphocytes Percent Auto 19.4 20-40 % Monocytes Percent Auto 8.8 2-11 % Eosinophils Percent Auto 2.1 0-4 % Basophils Percent Auto 0.7 0-2 % NRBC Pct Auto 0.0 0.0-0.2 /100WBC Neutrophils Absolute Auto 3.0 2.0-8.3 x10*3/uL Imm Gran Abs Auto 0.01 0.00-0.03 X10*3/uL Lymphocytes Absolute Auto 0.8 1.2-4.9 X10*3/uL Monocytes Absolute Auto 0.4 0.1-1.2 X10*3/uL Eosinophils Absolute Auto 0.1 0.0-0.4 X10*3/uL Basophils Absolute Auto 0.0 0.0-0.2 X10*3/uL NRBC Abs Auto 0.000 0.0-0.012 X10*3/uL Ferritin Reviewed date:10/19/2024 12:50:09 PM Interpretation: Performing Lab:[facility], [address] [place] [phone] Notes/Report: Ferritin 30 10-250 ng/mL Lactate Dehydrogenase Reviewed date:10/19/2024 12:50:00 PM Interpretation: Performing Lab:[facility], [address] [place] [phone] Notes/Report: Lactate Dehydrogenase 349 122-220 U/L Complete Blood Count Auto Di ff Reviewed date:11/13/2024 04:04:49 PM Interpretation: Performing Lab:[facility], [address] [place] [phone] Notes/Report: White Blood Count 3.1 4.8-10.8 X10*3/uL Red Blood Count 3.85 4.20-5.50 X10*6/uL Hemoglobin 10.7 12.0-16.0 g/dl Hematocrit 32.9 37.0-47.0 % Mean Corpuscular Volume 85.5 80.0-98.0 fL Mean Corpuscular Hemoglobin 27.8 27.0-33.0 pg Mean Corpuscular HGB Conc 32.5 31.0-35.0 g/dl Red Cell Distribution Width 14.5 11.0-16.0 % Platelet Count 80 160-400 X10*3/uL Mean Platelet Volume 12.4 9.4-12.3 fL Neutrophils Percent Auto 53.9 45-73 % Imm Gran Pct Auto 0.3 0.0-0.4 % Lymphocytes Percent Auto 31.5 20-40 % Monocytes Percent Auto 10.4 2-11 % Eosinophils Percent Auto 2.9 0-4 % Basophils Percent Auto 1.0 0-2 % NRBC Pct Auto 0.0 0.0-0.2 /100WBC Neutrophils Absolute Auto 1.7 2.0-8.3 x10*3/uL Imm Gran Abs Auto 0.01 0.00-0.03 X10*3/uL Lymphocytes Absolute Auto 1.0 1.2-4.9 X10*3/uL Monocytes Absolute Auto 0.3 0.1-1.2 X10*3/uL Eosinophils Absolute Auto 0.1 0.0-0.4 X10*3/uL Basophils Absolute Auto 0.0 0.0-0.2 X10*3/uL NRBC Abs Auto 0.000 0.0-0.012 X10*3/uL Basic Metabolic Panel Reviewed date:11/13/2024 12:58:32 PM Interpretation: Performing Lab:[facility], [address] [place] [phone] Notes/Report: Sodium 138 135-145 mmol/L Potassium 4.0 3.3-5.1 mmol/L Chloride 108 96-108 mmol/L Carbon Dioxide 23 22-29 mmol/L Anion Gap 11 12-20 Blood Urea Nitrogen 12 9-16 mg/dL Creatinine 0.69 0.5-1.4 mg/dL Estimated Glomerular Filt Rate > 60 Chronic Kidney Disease: Estimated GFR < 60 mL/min/1.73m2 Severe Kidney Disease: Estimated GFR < 15 mL/min/1.73m2 Glucose Random 110 60-115 mg/dL Calcium 9.0 8.4-10.2 mg/dL Lipid Panel Reviewed date:11/13/2024 12:40:35 PM Interpretation: Performing Lab:[facility], [address] [place] [phone] Notes/Report: Triglycerides 54 <150 mg/dL Desirable Triglyceride: less than 150 mg/dL Borderline High Triglyceride 150-199 mg/dL High Triglyceride: 200-499 mg/dL Very High Triglyceride: greater than or equal to 5OO mg/dL Cholesterol 102 <200 mg/dL Desirable Cholesterol: less than 200 mg/dL Borderline High Cholesterol: 200-239 mg/dL High Cholesterol: greater than 239 mg/dL LDL Cholesterol Calculated 47 <100 mg/dL Desirable LDL: less than 100 mg/dL Near Optimal/Above Optimal LDL: 110-129 mg/dL Borderline High LDL: 130-159 mg/dL High LDL: 160-189 mg/dL Very High LDL: greater than or equal to 190 mg/dL HDL Cholesterol 45 >40 mg/dL Desirable HDL: greater than 40 mg/dL Note: This HDL assay may give artificially low results in patients with liver disease. Complete Blood Count Auto Di ff Reviewed date:11/23/2024 12:53:30 PM Interpretation: Performing Lab:[facility], [address] [place] [phone] Notes/Report: White Blood Count 3.6 4.8-10.8 X10*3/uL Red Blood Count 3.83 4.20-5.50 X10*6/uL Hemoglobin 10.5 12.0-16.0 g/dl Hematocrit 31.8 37.0-47.0 % Mean Corpuscular Volume 83.0 80.0-98.0 fL Mean Corpuscular Hemoglobin 27.4 27.0-33.0 pg Mean Corpuscular HGB Conc 33.0 31.0-35.0 g/dl Red Cell Distribution Width 14.4 11.0-16.0 % Platelet Count 76 160-400 X10*3/uL Mean Platelet Volume 11.9 9.4-12.3 fL Neutrophils Percent Auto 66.6 45-73 % Imm Gran Pct Auto 0.3 0.0-0.4 % Lymphocytes Percent Auto 21.3 20-40 % Monocytes Percent Auto 8.4 2-11 % Eosinophils Percent Auto 2.8 0-4 % Basophils Percent Auto 0.6 0-2 % NRBC Pct Auto 0.0 0.0-0.2 /100WBC Neutrophils Absolute Auto 2.4 2.0-8.3 x10*3/uL Imm Gran Abs Auto 0.01 0.00-0.03 X10*3/uL Lymphocytes Absolute Auto 0.8 1.2-4.9 X10*3/uL Monocytes Absolute Auto 0.3 0.1-1.2 X10*3/uL Eosinophils Absolute Auto 0.1 0.0-0.4 X10*3/uL Basophils Absolute Auto 0.0 0.0-0.2 X10*3/uL NRBC Abs Auto 0.000 0.0-0.012 X10*3/uL Comprehensive Met. Panel Reviewed date:11/23/2024 12:47:55 PM Interpretation: Performing Lab:[facility], [address] [place] [phone] Notes/Report: Sodium 139 135-145 mmol/L Potassium 3.8 3.3-5.1 mmol/L Chloride 109 96-108 mmol/L Carbon Dioxide 23 22-29 mmol/L Anion Gap 11 12-20 Blood Urea Nitrogen 10 9-16 mg/dL Creatinine 0.65 0.5-1.4 mg/dL Creatinine Clr Calc Pharmacy 74.5 Provided height and weight: 165.1 cm, 82.8 kg. eGFR (calculated from the MDRD study equation) and eCrCl (calculated from the Cockcroft-Gault equation) are based on different parameters and may not yield comparable results. If eCrCl result is absurd, please check patient's height/weight. Estimated Glomerular Filt Rate > 60 Chronic Kidney Disease: Estimated GFR < 60 mL/min/1.73m2 Severe Kidney Disease: Estimated GFR < 15 mL/min/1.73m2 Glucose Random 111 60-115 mg/dL Calcium 8.9 8.4-10.2 mg/dL Bilirubin Total 0.9 0.0-1.0 mg/dL Aspartate Amino Transferase 33 5-31 U/L Alanine Aminotransferase 7 0-31 U/L Total Protein 5.9 6.5-8.0 g/dL Albumin Level 3.8 3.5-5.0 g/dL Alkaline Phosphatase 59 39-117 U/L Lactate Dehydrogenase Reviewed date:11/23/2024 12:46:45 PM Interpretation: Performing Lab:[address] [phone] Notes/Report: Lactate Dehydrogenase 362 122-220 U/L Haptoglobin Reviewed date:11/23/2024 12:39:44 PM Interpretation: Performing Lab:[address] [address] Notes/Report: Haptoglobin < 8 63-273 mg/dL Hold Gold (Not yet reviewed by provider) Interpretation: Performing Lab:[address] [address] Notes/Report: Hold Gold See Note Specimen held untested for 24 hours; Call to request Chemistry testing. Reason For Referral No Information Medications Medication [...] Immunizations Vaccine Route Administration Date Status Comme [facility] Flu Vaccine IM Intramuscular 03/05/2011 Administered Flu Vaccine Unknown 03/10/2012 Administered [facility] Flu Vaccine Unknown 03/12/2012 Administered flu vac at [facility] Flu Vaccine IM Intramuscular 01/26/2013 Administered PPSV23 (Pnemovax) IM Intramuscular 01/29/2013 Administered Fluarix Quadrivalent IM Intramuscular 02/16/2014 Administered Fluarix Quadrivalent IM Intramuscular 03/14/2015 Administered Prevnar 13 IM Intramuscular 09/26/2015 Administered Fluarix Quadrivalent IM Intramuscular 03/20/2016 Administered Fluarix Quadrivalent IM Intramuscular 03/05/2017 Administered TDaP Unknown 04/08/2017 Administered pt was given the vaccine at [facility] on [facility] Fluarix Quadrivalent IM Intramuscular 04/21/2018 Administered PPSV23 (Pnemovax) IM Intramuscular 04/25/2018 Administered Influenza High Dose IM Intramuscular 03/12/2019 Administer ed Influenza High Dose Unknown 02/08/2020 Administered [facility] Influenza High Dose Unknown 02/11/[address] [facility] Influenza High Dose IM Intramuscular 02/10/[address] [facility] SARS-COV-2 Pfizer Unknown 08/31/2020 Administered SARS-COV-2 Pfizer Unknown 09/21/2020 Administered Influenza High Dose IM Intramuscular 02/16/2021 Administer ed SARS-COV-2 Pfizer Unknown 03/27/[address] [facility] Fluarix Quadrivalent IM Intramuscular 02/19/2022 Administered [...] Problem Status W/U Status Risk Notes Problem 039262924 Thrombocytopenia (D69.6) Active confirmed Problem 69770389 Lymphocytosis (D72.820) Active confirmed Problem 025017790 Tubular adenoma (D36.9) Active confirmed Problem 150888254 Reflux esophagit is (K21.00) Active confirmed Problem Vitamin D defici ency (E55.9) Active confirmed Problem 994962238 Annual physical exam (Z00.00) Active confirmed Problem 041391219 Morbid (severe) obesity due to excess calories (E66.01) Active confirmed Problem 10735236 Cerebral aneurys m, nonruptured (I67.1) Active confirmed Problem 645201953 Body mass index (BMI) 36.0-36.9, adult (Z68.36) Active confirmed Problem 574742749 Osteopenia (M85.80) Active confirmed Problem 58130810 Essential hypert ension (I10) Active confirmed Problem 598276446 Acquired hypothyroidism (E03.9) Active confirmed Problem 8727391 Prediabetes (R73.09) Active confirmed Problem 239512280 Low HDL (under 4 0) (E78.6) Active confirmed Problem 828074751 Nonrheumatic aor tic valve stenosis (I35.0) Active confirmed Problem 75644201 Hiatal hernia (K44.9) Active confirmed Problem 03100535 Iron deficiency anemia, unspecified iron deficiency anemia type (D50.9) Active confirmed Problem 711775417 Neutropenia, unspecified type (D70.9) Active confirmed Problem 866382309 Severe aortic st enosis (I35.0) Active confirmed Problem 272031885 Pure hypercholesterolemia (E78.00) Active confirmed Problem 964938331 BMI 39.0-39.9,ad ult (Z68.39) Active confirmed Problem 053586944 BMI 38.0-38.9,ad ult (Z68.38) Active confirmed Problem 6421830070344921 Barretts esopha eddie with dysplasia (K22.719) Active confirmed Problem 190048543 Asymptomatic nael icose veins (I83.90) Active confirmed Problem 942283567 Aortic stenosis, moderate (I35.0) Active confirmed Vital Signs Blood pressure diastolic 60 mm Hg 06/30/2024 Height 65.25 in 06/30/2024 Blood pressure systolic 112 mm Hg 06/30/2024 Weight 190 lbs 06/30/2024 BMI 31.37 kg/m2 06/30/2024 Encounters Encounter Location Date Provider Diagnosis Christian Lewis MD [address] [place] [address] [id number] 02/04/2024 Christian Lewis Encounter for immuni zation Z23 Christian Lewis MD [address] [place] [address] [id number] 05/28/2024 Christian Lewis Iron deficiency E61. 1 ; Thrombocytopenia D69.6 and Acquired hypothyroidism E03.9 Christian Lewis MD [address] [place] [address] [id number] 07/17/2024 Christian Lewis Gastrointestinal hemorrhage associated with duodenitis K29.81 Christian Lewis MD [address] [place] [address] [id number] 07/24/2024 Christian Lewis Hematuria, unspecifi ed type R31.9 Christian Lewis MD [address] [place] [address] [id number] 11/27/2024 Christian Lewis Blood tests for rout ine general physical examination Z00.00 ; Essential hypertension I10 ; Prediabetes R73.09 ; Acquired hypothyroidism E03.9 ; Pure hypercholesterolemia E78.00 ; Lymphocytosis D72.820 ; Vitamin D deficiency E55.9 and Iron deficiency anemia, unspecified iron deficiency anemia type D50.9 Christian Lewis MD [address] [place] [address] [id number] 12/03/2023 Christian Lewis Vitamin D deficiency E55.9 ; Thrombocytopenia D69.6 ; Essential hypertension I10 ; Barretts esophagus with dysplasia K22.719 ; Iron deficiency E61.1 ; Acquired hypothyroidism E03.9 ; Annual physical exam Z00.00 ; Prediabetes R73.09 ; Pure hypercholesterolemia E78.00 ; Reflux esophagitis K21.00 ; Colon cancer screening Z12.11 and Encounter for screening for depression Z13.31 Christian Lewis MD [address] [place] [address] [id number] 06/04/2024 Christian Lewis Aortic stenosis, mod erate I35.0 ; Acquired hypothyroidism E03.9 ; Essential hypertension I10 ; Thrombocytopenia D69.6 and Iron deficiency anemia, unspecified iron deficiency anemia type D50.9 Christian Lewis MD [address] [place] [address] [id number] 06/30/2024 Christian Lewis Gastrointestinal hemorrhage associated with duodenitis K29.81 ; Tubular adenoma D36.9 and Severe aortic stenosis I35.0 Christian Lewis MD [address] [place] [address] [id number] 06/25/2024 [address] [place] [address] [id number] 08/03/2024 Christian Lewis MD [address] [place] [address] [id number] 10/05/2024 Christian Lewis Assessments Encounter Date Diagnosis (ICD Code) Assessment Notes Treatment Notes Treatment Clinical Notes Section Notes 02/04/2024 Encounter for immunization (ICD-10 - Z23) 05/28/2024 Iron deficiency (ICD -10 - E61.1) 05/28/2024 Thrombocytopenia (IC D-10 - D69.6) 07/17/2024 Gastrointestinal hemorrhage associated with duodenitis (ICD-10 - K29.81) 07/24/2024 Hematuria, unspecifi ed type (ICD-10 - R31.9) 11/27/[address] ine general physical examination (ICD-10 - Z00.00) 12/03/2023 Vitamin D deficiency (ICD-10 - E55.9) [...] D36.9) to follow up with dr cheema 05/28/2024 Acquired hypothyroid ism (ICD-10 - E03.9) 11/27/2024 Essential hypertensi on (ICD-10 - I10) 12/03/2023 Essential hypertensi on (ICD-10 - I10) stable, will continue curren regiment and will continue to monitor 06/04/2024 Essential hypertensi on (ICD-10 - I10) stable, will continue current regiment 06/30/2024 Severe aortic stenos is (ICD-10 - I35.0) to see cardiology next week 11/27/2024 Prediabetes (ICD-10 - R73.09) 12/03/2023 Barretts esophagus w ith dysplasia (ICD-10 - K22.719) followed by dr cheema 06/04/2024 Thrombocytopenia (IC D-10 - D69.6) stable, will continue to monitor 11/27/2024 Acquired hypothyroid ism (ICD-10 - E03.9) 12/03/2023 Iron deficiency (ICD -10 - E61.1) to start taking iron daily 06/04/2024 Iron deficiency anem ia, unspecified iron deficiency anemia type (ICD-10 - D50.9) stable, will continue to monitor 11/27/2024 Pure hypercholesterolemia (ICD-10 - E78.00) 12/03/2023 Acquired hypothyroid ism (ICD-10 - E03.9) stable, will continue current regiment 11/27/2024 Lymphocytosis (ICD-1 0 - D72.820) 12/03/2023 Annual physical exam (ICD-10 - Z00.00) labs reviewed and dicussed with patient 11/27/2024 Vitamin D deficiency (ICD-10 - E55.9) 12/03/2023 Prediabetes (ICD-10 - R73.09) stable, no need for medication at this time 11/27/2024 Iron deficiency anem ia, unspecified iron deficiency anemia type (ICD-10 - D50.9) 12/03/2023 Pure hypercholesterolemia (ICD-10 - E78.00) stable, [...] 12/12/2021 US ABD AORTA 11/29/2022 ECHO 11/15/2020 Complete Blood Count Auto Diff 5 Comprehensive [place]. Panel Fast 5 IRON PROFILE 11/27/2024 Lipid Panel 11/27/2024 Vitamin D 25-OH Total 11/27/2024 TSH reflex Free T4 11/27/2024 Microalbumin, Random 11/27/2024 Hold Gold 11/27/2024 MM tomosynthesis screening BI 11/15/2020 Hemoglobin A1c 11/27/2024 ECHO 11/12/2019 Future Test Test Name Order Date CA echo transthoracic complete 2 CA echo transthoracic complete 4 Next Appt Details Provider Name:Christian taylor, 12/04/2024 09:30:00 AM, [address] [place] [address], [address], [place], [place], [id number], Insurance Providers Payer Name Payer Address Payer Phone Subscriber Number Group Number Insured Name Patient Relationship to Insured Coverage Start Date Coverage End Date [employer] [facility] [address] [place] [place] [phone] [id number] Fawad Mary Lou Self - patient is the insured Medical (General) History Medical History History ICD Code 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 Cheema - repeat 5 years;Colonoscopy 04/19/21 repeat in one year ( 2021) colonoscopy 05/29/23 repeat 2/3 years barreosvaldo. esoph done 2012 - Endo done 10/22/16 [...]
[2024-11-27 11:59] LABS: Hemoglobin A1C 89.6299 umol/L; Total Hemoglobin (HGBA1C) 3055.9301 umol/L
== END 2024-11-27 10:44 | disposition home or self-care (01) ==
LOC: HO.LNP 10:43
PROVIDERS: Visit Provider Internal Medicine
DX: Z00.00 Encounter for general adult medical examination without abnormal findings (principal); I10 Essential (primary) hypertension; R73.09 Other abnormal glucose; E03.9 Hypothyroidism, unspecified; E78.00 Pure hypercholesterolemia, unspecified; E55.9 Vitamin D deficiency, unspecified; D72.820 Lymphocytosis (symptomatic); D50.9 Iron deficiency anemia, unspecified
CPT/HCPCS: 80053; 80061; 82043; 82306; 82570; 83036; 83540; 84443; 85025

== ENCOUNTER 2024-12-04 08:01 | Outpatient (REF) | payer MEDICARE, SELFPAY ==
--- OUTSIDE RECORDS SUMMARY | 2024-12-04 05:30 | XMS_ITS ---
Author Organization Christian Lewis MD Address [address] [place] [phone] Care Team Providers Care Plate Shear Operator Name Role Phone Christian Lewis Primary Care Provider [phone] Allergies Allergen (clinical drug ingredient) Drug/Non Drug Allergy documented on EMR Reaction Allergy Type Onset Date Status lisinopril Lisinopril cough Drug Allergy Activ e REASON FOR VISIT annual visit, HCC codes need noted K74.69 Cirrhosis of Liver Social History Tobacco Use: Social History Observation [...] ast year? No Points 0 Interpretation Negative Encounters Encounter Location Date Provider Diagnosis Christian Lewis MD [address] [place], [place] [phone] 12/04/2024 Christian Lewis Plan Of Treatment Next Appt Details Provider Name:Christian taylor, 12/04/2024 09:30:00 AM, [address], Suite [facility], [place], [place], [phone], Progress Notes * Mary Lou CELESTIN SDOB:1945 (79 yo F)Acc No.[id number]:12/04/2024 Progress Notes Patient: Mary Lou GUSTAFSON Provider: Sascha Lewis MD :1945 A ge:79 Y S ex:Female Date:12/04/2024 Address:[address] [place] [address] Subjective: * Chief Complaints: * 1 . Annual visit. 2. HCC codes need noted K74.69 Cirrhosis of Liver. * HPI: D epression Screening: PHQ-9 L [...] recent labs and follow up of chronic issues. * Medical History: E sophageal surgery for reflux, Aneurysm of brain, colonoscopy 2011 due in 3 years; colonoscopy 10/22/[address] Hernandez - repeat 5 years;Colonoscopy 04/19/21 repeat in one year ( 2021) colonoscopy 05/29/23 repeat 2/3 years, barretis. esoph done 2012 - Endo done 10/22/[address] Hernandez - repeat 3 years; Endo w/biopsy done endoscopy 04/19/21 04/21/[address] Hernandez - repeat 1 year; Endoscopy w/biopsies done 04/22/[address] Hernandez: 05/30/22 Colonoscopy repeat one year, Had mra in 2012 and they felt should have a repeat in 2 years 08/01, Total hysterectomy. * Family History: F ather: 44 yrs, [...] no. Exercise: yes, 1-2 times per week walking. Home smoke detector use: yes. Housing: owning. Living with: alone. Marital status: single. Occupation: retired. Pets: none. Travel outside of the [place]: no. * Allergies: L isinopril: cough. Objective: * Vitals: * P ast Orders: L ab:Vitamin D [...] <30 - ug/ mg cr L ab:Comprehensive Gipsy. Panel Fast (Order Date - 11/27/2024) (Collection [...] mg/dL HDL Cholesterol 41 >40 - mg/dL Assessment: Plan: * Treatment: * Preventive Medicine: Counseling: C are goal follow-up plan: C abbeeling for abnormal BMI provided?Yes, Maria Elena apodaca Normal BMI Follow-up G dl encouragement to exercise. * * The named appointment provid er may or may not be the originator of this progress note, and it is not deemed complete until electronically signed by the appointment provider. Sign off status: Pending * Provider: Sascha Lewis MD Date: 12/04/2024 Generated for Suzanne caraballo/Ligia/Jessicasmitting on: 12/04/2024 08:04 AM EDT History and Physical Notes * HPI (History of Present Illness) Category Sub-Category Detail Notes Category Not es Symptom(s) patient is a 79 yo female here for annual visit with review of recent labs and follow up of chronic issues Depression Screening PHQ-9 Little inte rest or [...]
--- OUTSIDE RECORDS SUMMARY | 2024-12-04 08:05 | XMS_ITS | Patient Health Record ---
Author Organization [facility] Address [address] [facility] [place] [address] Care Team Providers Care Head Custodian Name Role Phone Christian Lewis MD Primary Care Provider Maite Mayfield Unavailable [phone] Allergies No Known Allergies Reason For Referral [...] Date [facility] [place] Medicare Advantage [address] [facility] [address] [phone] Mary Lou Celestin Self - patient is the insured Medical (General) History Medical History History ICD Code High blood pressure Scarlet fever thyroid Chicken pox Surgical History Surgery Date(Month/Year) hysterectomy 1985 knee surgery, left shoulder surgery right stomach surgery 1995 brain aneurysm 2007 colonoscopy 05/29/23
--- OUTSIDE RECORDS SUMMARY | 2024-12-04 08:05 | XMS_ITS | Clinical Summary ---
Author Organization [facility] Address [address] [place] [address] Care Team Providers Care Press Hand Supervisor Name Role Phone Unavailable Primary Care [...]
--- OUTSIDE RECORDS SUMMARY | 2024-12-04 08:05 | XMS_ITS | Patient Health Record ---
Author Organization [facility] Address [address] [place] [address] Care Team Providers Care Neonatal Doctor Name Role Phone Christian Lewis MD Primary Care Provider Gilberto Hollingsworth [phone] Allergies Allergen (clinical drug ingredient) Drug/Non Drug Allergy documented on EMR Reaction Allergy Type Onset Date Status lisinopril Lisinopril cough Drug Allergy Activ e Results Component Value Reference Range Notes Ferritin Reviewed date:07/05/2024 03:39:42 PM Interpretation: Performing Lab:[facility], [address] [place] [phone] Notes/Report: Ferritin 41 10-250 ng/mL Pathology Reviewed date:07/01/2024 07:47:55 PM Interpretation: Performing Lab:[address] [phone] Notes/Report: Complete Blood Count Auto Di ff (Not yet reviewed by provider) Interpretation: Performing Lab:[address] [address] Notes/Report: White Blood Count 3.5 4.8-10.8 X10*3/uL [...] PROFILE Reviewed date:07/05/2024 03:39:35 PM Interpretation: Performing Lab:[facility], [address] [place] [phone] Notes/Report: Iron 41 30-160 mcg/dL Total Iron Binding Capacity 312 228-428 mcg/d L Percent Iron Saturation 13 15-50 % Unsaturated Iron Binding 271 US abdomen comp w elastograp hy Reviewed date:08/22/2024 04:09:38 PM Interpretation: Performing Lab: Notes/Report: [address] [address] Ultrasound Report Signed Patient: Mary Lou Celestin MR#: [id number] : 1945 Acct:[id number] Age/Sex: 79 / F ADM Date: 08/05/24 Loc: HO.US Attending Dr: Gilberto Hernandez MD Ordering Physician: Gilberto Hernandez MD Date of Service: 08/05/24 Procedure(s): US abdomen comp w elastography Accession Number(s): [id number] cc: Christian Lewis MD; Gilberto Hernandez MD [...] 08/06/24 1231 DD/ 0900 TD/TT: 08/05/24 0945 Visual Artist: US duplex arterial venous co mp Reviewed date:08/22/2024 04:10:36 PM Interpretation: Performing Lab: Notes/Report: [address] [address] Ultrasound Report Signed Patient: Mary Lou Celestin MR#: [id number] : 1945 Acct:[id number] Age/Sex: 79 / F ADM Date: 08/05/24 Loc: HO.US Attending Dr: Gilberto Hernandez MD Ordering Physician: Gilberto Hernandez MD Date of Service: 08/05/24 Procedure(s): US duplex arterial venous comp Accession Number(s): [id number] cc: Christian Lewis MD; iGlberto Hernandez MD EXAMINATION: US ABDOMEN COMPLETE WITH [...] not well established. Electronically signed by: Gilberto hTompson MD 08/05/2024 10:27 AM EDT Dictated By: Gilberto Thompson MD Signed By: <Electronically signed by Gilberto Thompson MD in OV> 08/06/24 1231 DD/ 0900 TD/TT: 08/05/24 0945 Visual Artist: Reason For Referral No Information Medications Medication [...] UTH TWICE A DAY for 90 Active Iron [...] Notes Problem Gastro-esophageal reflux disease without esophagitis (089380513) Gastro-esophageal reflux disease without esophagitis (K21.9) Active confirmed Problem 750104073 Encounter for screening for malignant neoplasm of colon (Z12.11) Active confirmed Problem 039419718 History of adenomatous polyp of colon (Z86.010) Active confirmed Problem History of polyp of colon (situation) (100727369) Personal history of colonic polyps (Z86.010) Active confirmed Problem Anemia due to chronic blood loss (disorder) (395383330) Iron deficiency anemia secondary to blood loss (chronic) (D50.0) Active confirmed Problem 9853729044414080 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) Active confirmed Problem Diverticular disease of colon (025711996) Diverticulosis of large intestine without perforation or abscess without bleeding (K57.30) Active confirmed Problem 52922319 Other cirrhosis of liver (K74.69) Active confirmed Problem Screening for malignant neoplasm of rectum (406494789) Encounter for screening for malignant neoplasm of rectum (Z12.12) Active confirmed Problem Duodenitis (19493343) Duodenitis (K29.80) Active confirmed Problem Gastroesophageal reflux disease (767431859) Gastroesophageal reflux disease (K21.9) Active confirmed Problem Iron deficiency anemia (64893189) Iron deficiency anemia (D50.9) Active confirmed Problem 586816186 Gastroesophageal reflux disease without esophagitis (K21.9) Active confirmed Problem 585620223 Elevated liver enzymes (R74.8) Active confirmed Problem 806981496 Barretts esophag us without dysplasia (K22.70) Active confirmed Problem 773836219 Fatty liver (K76.0) Active confirmed Problem Gastric polyp (58328240) Gastric polyp (K31.7) Active confirmed Problem Benign neoplasm of stomach (40856758) Gastric polyps (K31.7) Active confirmed Problem Anemia (552497232) Anemia (D64.9) Active confir med Problem Benign neoplasm of small intestine (13164715) 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 Problem 240938524 Elevated alpha fetoprotein (R77.2) Active confirmed Problem Gastritis (4581891) Gastritis (K29.70) Active c onfirmed Problem 00106206 Iron deficiency anemia, unspecified iron deficiency anemia type (D50.9) Active confirmed Problem Ennis esophagus (458624096) 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) Active confirmed Problem 5897094555884128 Barretts esopha eddie with low grade dysplasia (K22.710) Active confirmed Problem 05967737 Liver fibrosis (K74.0) Active confirmed Problem 776628795 Positive MANDY (antinuclear antibody) (R76.8) Active confirmed Problem 81561633 Liver fibrosis (K74.00) Active confirmed Vital Signs Temperature 96.9 degrees Fahrenheit 07/01/2024 Blood pressure diastolic 01 mm Hg 07/01/2024 Height 65.25 in 07/01/2024 Blood pressure systolic 001 mm Hg 07/01/2024 Weight 192 lbs 07/01/2024 BMI 31.7 kg/m2 07/01/2024 Encounters Encounter Location Date Provider Diagnosis [facility] [address] [place], [place] [phone] 06/25/2024 Gilberto Hernandez [facility] [address] [place] [phone] 07/01/2024 Gilberto Hernandez Barretts esophagus without dysplasia K22.70 ; Other cirrhosis of liver K74.69 ; Fatty liver K76.0 ; Iron deficiency anemia, unspecified iron deficiency anemia type D50.9 and Duodenal adenoma D13.2 [facility] [address] [place] [phone] 03/17/2024 Gilberto Hernandez [facility] [address] [place] [phone] 07/21/2024 Gilberto Hernandez Anemia D64.9 [facility] [address] [place] [phone] 08/12/2024 Gilberto Hernandez Assessments Encounter Date Diagnosis [...] Hemoccult Cards (Non-Screening) 03/14/20 21 LIVER PROFILE 08/10/2018 LIVER PROFILE 02/12/2023 LIVER PROFILE 03/14/2021 LIVER PROFILE 10/17/2019 LIVER PROFILE 03/27/2022 IRON + IBC (FE) 07/01/2024 IRON + [...] 02/12/2023 Next Appt Details Provider Name:Gilberto Baer Hernandez , 02/02/2025 09:50:00 AM, [address] [facility], [address], [place], [address], Insurance Providers Payer Name Payer Address Payer Phone Subscriber Number Group Number Insured Name Patient Relationship to Insured Coverage Start Date Coverage End Date [facility] [address] [facility] [place] D[place] [phone] [id number] MARY LOU CELESTIN Self - patient is the insured Medical (General) History Medical History History ICD Code GERD with Ennis's esophagu s-areas of high and low grade dysplasia seen in Fall of 2009-has been going to [facility] and Dr. Ferrer for ablation Rx of the Ennis's-most recent Rx was 01/2012-biopsies in 11/2011 showed the Ennis's, but no dysplasia Hypothyroidism HTN Hyperlipidemia Tubular adenomas removed from colon in and 2011 Denies PR,DM,CVA,Lung disease,renal dise ase Brain aneurysm with Agram and clipping i n 12/2007 Duodenal tubular adenoma removed in 2009 . Most recent EGD in [facility] in 09/2012--Bx from 35 to 27 cm all neg for Ennis's esophagus nor dysplasia-same HH noted EGD 04/2013 with me at [facility]-- small areas of Ennis's mucosa, but no [...]
== END 2024-12-04 08:02 | disposition home or self-care (01) ==
LOC: HO.LAB 08:01
PROVIDERS: PCP Internal Medicine; Visit Provider Internal Medicine
DX: Z13.89 Encounter for screening for other disorder (principal)

== ENCOUNTER 2024-12-15 13:29 | Outpatient (REF) | payer MEDICARE, SELFPAY ==
--- OUTSIDE RECORDS SUMMARY | 2024-12-04 05:30 | XMS_ITS ---
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 Problem Non-Hodgkin lymphoma ([id number]) Lymphoma (C85.90) Active confirmed Vital Signs Blood pressure systolic 132 mm Hg 12/05/19 25 Blood pressure diastolic 66 mm Hg 025 Height 65.25 in 12/04/2024 Weight 180 lbs 12/04/2024 BMI 29.72 kg/m2 12/04/2024 weight is down 10 pounds [facility] [place] 06-30-24 Encounters Encounter Location Date Provider Diagnosis Christian Lewis MD [address] [place] [phone] 12/04/2024 Christian Lewis Essential hypertensi on I10 [...] 2 Months, Reason: Provider Name:Christian Martin ier, 02/08/2025 09:00:00 AM, [address], [address], [place], [place], [phone], Provider Name:Christian Martin ier, 06/03/2025 07:30:00 AM, [address] [place] [address] Drive, Suite [facility], [place], [place], [phone], Provider Name:Christian Martin ier, 06/11/2025 09:00:00 AM, [address] [place] [address] Drive, [address], [place], [place], [phone], Provider Name:Christian Martin ier, 11/29/2025 07:45:00 AM, [address] [place] [address] Drive, Suite [facility], [place], [place], [phone], Provider Name:Christian Martin olur, 12/07/2025 08:30:00 AM, [address] [place] [address], Suite [facility], [place], [place], [phone], Progress Notes * Mary Lou CELESTIN SDOB:1945 (79 yo F)Acc No.[id number]:12/04/2024 Progress Notes Patient: Mary Lou GUSTAFSON Provider: Sascha Lewis MD :1945 A ge:79 Y S ex:Female Date:12/04/2024 Address:[address] [place], [place] [phone] Subjective: * Chief Complaints: * A nnual [...] aving some high bp readings at physical therpy/ [...] <30 - ug/ mg cr L ab:Comprehensive [place]. Panel Fast (Order Date 11/27/2024) (Collection Date & Time - 11/27/2024 [...] - mg/dL L ab:IRON PROFILE (Order Date 11/27/2024) (Collection Date & Time - 11/27/2024 07:15 AM) Value Reference Range Iron 47 30-160 - mcg/dL Total Iron Binding Capacity 286 228-428 - mc g/dL Percent Iron Saturation 16 15-50 - % Unsaturated Iron Binding 239 - ug/dL L ab:Lipid Panel (Order Date 11/27/2024) (Collection Date & Time - 11/27/2024 [...] ure hypercholesterolemia - E78.00 1 0. I simona deficiency anemia, unspecified iron deficiency [...] Counseling: C are goal follow-up plan: C abbeeling for abnormal BMI provided?Yes, A paulie Normal BMI Follow-up G dl encouragement to exercise. * Follow Up: 2 Months * * Sign off status: Completed true * Provider: Sascha Lewis MD Date: 0 12/04/2024 Generated for Suzanne caraballo/Ligia/eTfallonsmitting on: 0 12/15/2024 02:20 PM EDT History and Physical Notes * [...]
--- OUTSIDE RECORDS SUMMARY | 2024-12-09 23:59 | XMS_ITS | Continuity of Care Document ---
Author Organization [facility] Address [address] [place] [phone] Care Team Providers Care Flask Maker Name Role Phone Joshua KNIGHT, Christian Primary Care Physician [phone] [place] [facility] [place]s): 11/09/24 - 12/09/24 [facility] [address] [place] [address]- Encounter Type: Triage Allergies, Adverse Reactions, Alerts No Known Allergies Medications aspirin 81 mg oral capsule = 81 mg, By Mouth, Daily, # 30 capsule, 0 Refills, Maintenance, 09/30/24 12:17:00 PM EDT, Capsule, [facility], Partial fill upon patient request if the prescription is for a schedule II opioid drug., 165, cm, 09/30/24 11:28:00 EDT, Height, 82, kg, 09/29/24 18:41:00 EDT, Dry Weight Start Date: 09/30/24 Status: Ordered Quantity: 30.0 Unit: capsule Repeat number: 1 Cyanocobalamin = 1,000 mcg, Intramuscular, 0 Refills, [...] 9:54:00 AM EDT, Route to Pharmacy Electronically, [facility], Partial fill upon patient [...] Health [facility] Informant Aneurysm Confirmed Active Obese class I Confirmed Active Social History Social History Type Response Smoking Status Former smoker entered on: 09/02/15 Sex Sex Representation Female (finding) Patient Care team information Care Team Personnel Name: Christian Lewis MD Position: Reference Physician Member Role: PCP Address: [address] [place] [address]- Telecom: [phone] Name: Marya Medina RN Position: [facility] RN Member Role: Primary Care Nurse Care Team Related Persons Name: DUANE LEBRON Name: AMOR ROSENBERG Name: ANNE GREEN Insurance Providers Guarantor name: TRENT RODRIGUEZ [employer] [facility] Information #: 1 Payer: GROUP ACCOUNT Payer Identifier: NA Member Number: NA Group Number: NA Subscriber Identifier: [id number] Relationship to Subscriber: self Coverage Type: MISCELLANEOUS/OTHER Coverage Verification Date: YURIDIA Telecom: YURIDIA Address: NA
--- NOTE | ~2024-12-15 | CT_ITS ---
EXAMINATION: CT SOFT TISSUE NECK WITH CONTRAST CLINICAL INFORMATION: Stage CLL COMPARISON: Recent PET/CT dated September 08, 2024 demonstrated a focal abnormal uptake in the left nasopharynx. TECHNIQUE: Following the intravenous administration of 60 mL of Omnipaque 350 intravenous contrast, helical imaging was performed in the axial plane with generation of coronal and sagittal reformatted images. This CT examination was performed using dose optimization techniques as appropriate, variously including the following: *Automated exposure control *Adjustment of mA and/or kV according to patient size (this includes techniques or standardized protocols for targeted exams where dose is matched to indication/reason for exam; i.e. extremities or head) *Use of iterative reconstruction technique. DLP: 443 mg centimeter. FINDINGS: There is a slight asymmetric increased density centered in the left lateral nasopharynx involving porus tubarius/eustachian tube. The oropharynx, hypopharynx and larynx demonstrated no gross masses. Punctate calcifications in the left palatine tonsils. The oral cavity and sublingual and submandibular compartments demonstrated no gross masses. Tankerman spaces, parapharyngeal and carotid compartments demonstrated no gross masses. Salivary glands demonstrated asymmetric volume loss without mass in the right submandibular gland.. No gross lymphadenopathy. Mixed plaques in the carotid bulbs and proximal ICAs presenting 80% stenosis in the right ICA and less than 70% stenosis in the left ICA. The vessels are patent. The right vertebral artery is dominant. 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 Edentulous, maxilla. Tympanic cavities and mastoid cells are aerated. No air-fluid levels in the paranasal sinuses. Centrilobular emphysematous changes in the lungs. 2 mm calcified pulmonary nodule, right upper lung lobe likely granuloma. Aberrant right subclavian artery with a retroesophageal trajectory. Secretions layering in the trachea. Calcified plaques in the thoracic aortic arch and its main branches. Multilevel cervical spondylosis pronounced at C5-6. CT/CT soft tissue neck w IV con IMPRESSION: Irregular soft tissue asymmetric increased density, left nasopharynx. This corresponds to the abnormal uptake/increased FDG activity. No cervical lymphadenopathy. Secretions within the trachea likely related to penetration and/or aspiration. Aberrant right subclavian artery. Atherosclerosis disease. Emphysematous changes. Tonsilliths, left palatine tonsil.. Electronically signed by: Koko Strong MD 12/15/2024 02:40 PM EDT RP
--- OUTSIDE RECORDS SUMMARY | 2024-12-15 14:21 | XMS_ITS | Patient Health Record ---
Author Organization [facility] Address [address] [place] [address] Care Team Providers Care Agency Trainer Name Role Phone Christian Lewis MD Primary Care Provider Gilberto Hollingsworth [phone] Allergies Allergen (clinical drug ingredient) Drug/Non Drug Allergy documented on EMR Reaction Allergy Type Onset Date Status lisinopril Lisinopril cough Drug Allergy Activ e Results Component Value Reference Range Notes Ferritin Reviewed date:07/05/2024 03:39:42 PM Interpretation: Performing Lab:[facility], [address] [place] [phone] Notes/Report: Ferritin 41 10-250 ng/mL Pathology Reviewed date:07/01/2024 07:47:55 PM Interpretation: Performing Lab:[address] [address] Notes/Report: Complete Blood Count Auto Di ff (Not yet reviewed by provider) Interpretation: Performing Lab:[address] [address] Notes/Report: White Blood Count 3.5 4.8-10.8 X10*3/uL [...] PROFILE Reviewed date:07/05/2024 03:39:35 PM Interpretation: Performing Lab:[facility], [address] [place] [phone] Notes/Report: Iron 41 30-160 mcg/dL Total Iron Binding Capacity 312 228-428 mcg/d L Percent Iron Saturation 13 15-50 % Unsaturated Iron Binding 271 US abdomen comp w elastograp hy Reviewed date:08/22/2024 04:09:38 PM Interpretation: Performing Lab: Notes/Report: [address] [address] Ultrasound Report Signed Patient: Mary Lou Celestin MR#: [id number] : 1945 Acct:[id number] Age/Sex: 79 / F ADM Date: 08/05/24 Loc: HO.US Attending Dr: Gilberto Hernandez MD Ordering Physician: Gilberto Hernandez MD Date of Service: 08/05/24 Procedure(s): US abdomen comp w elastography Accession Number(s): [id number] cc: Christian Lewis MD; Gilberto Hernandez MD [...] 08/06/24 1231 DD/ 0900 TD/TT: 08/05/24 0945 Pleater Hand: US duplex arterial venous co mp Reviewed date:08/22/2024 04:10:36 PM Interpretation: Performing Lab: Notes/Report: [address] [address] Ultrasound Report Signed Patient: Mary Lou Celestin MR#: [id number] : 1945 Acct:[id number] Age/Sex: 79 / F ADM Date: 08/05/24 Loc: HO.US Attending Dr: Gilberto Hernandez MD Ordering Physician: Gilberto Hernandez MD Date of Service: 08/05/24 Procedure(s): US duplex arterial venous comp Accession Number(s): [id number] cc: Christian Lewis MD; Gilberto Hernandez MD [...] 08/06/24 1231 DD/ 0900 TD/TT: 08/05/24 0945 Pleater Hand: Reason For Referral No Information Medications Medication [...] Notes Problem Gastro-esophageal reflux disease without esophagitis (119942489) Gastro-esophageal reflux disease without esophagitis (K21.9) Active confirmed Problem 075520366 Encounter for screening for malignant neoplasm of colon (Z12.11) Active confirmed Problem 536912584 History of adenomatous polyp of colon (Z86.010) Active confirmed Problem History of polyp of colon (situation) (028581899) Personal history of colonic polyps (Z86.010) Active confirmed Problem Anemia due to chronic blood loss (disorder) (030165769) Iron deficiency anemia secondary to blood loss (chronic) (D50.0) Active confirmed Problem 1267596350418644 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) Active confirmed Problem Diverticular disease of colon (030479103) Diverticulosis of large intestine without perforation or abscess without bleeding (K57.30) Active confirmed Problem 25337731 Other cirrhosis of liver (K74.69) Active confirmed Problem Screening for malignant neoplasm of rectum (467247000) Encounter for screening for malignant neoplasm of rectum (Z12.12) Active confirmed Problem Duodenitis (85057972) Duodenitis (K29.80) Active confirmed Problem Gastroesophageal reflux disease (382370286) Gastroesophageal reflux disease (K21.9) Active confirmed Problem Iron deficiency anemia (87280915) Iron deficiency anemia (D50.9) Active confirmed Problem 190793270 Gastroesophageal reflux disease without esophagitis (K21.9) Active confirmed Problem 426952213 Elevated liver enzymes (R74.8) Active confirmed Problem 503592293 Barretts esophag us without dysplasia (K22.70) Active confirmed Problem 503138921 Fatty liver (K76.0) Active confirmed Problem Gastric polyp (26768809) Gastric polyp (K31.7) Active confirmed Problem Benign neoplasm of stomach (25878558) Gastric polyps (K31.7) Active confirmed Problem Anemia (622496053) Anemia (D64.9) Active confir med Problem Benign neoplasm of small intestine (17293333) 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 Problem 641848477 Elevated alpha fetoprotein (R77.2) Active confirmed Problem Gastritis (6496857) Gastritis (K29.70) Active c onfirmed Problem 27356544 Iron deficiency anemia, unspecified iron deficiency anemia type (D50.9) Active confirmed Problem Ennis esophagus (906422242) 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) Active confirmed Problem 5370172306746302 Barretts esopha eddie with low grade dysplasia (K22.710) Active confirmed Problem 64826454 Liver fibrosis (K74.0) Active confirmed Problem 061586185 Positive MANDY (antinuclear antibody) (R76.8) Active confirmed Problem 46708910 Liver fibrosis (K74.00) Active confirmed Vital Signs Temperature 96.9 degrees Fahrenheit 07/01/2024 Blood pressure diastolic 01 mm Hg 07/01/2024 Height 65.25 in 07/01/2024 Blood pressure systolic 001 mm Hg 07/01/2024 Weight 192 lbs 07/01/2024 BMI 31.7 kg/m2 07/01/2024 Encounters Encounter Location Date Provider Diagnosis [facility] [address] [place], [place] [phone] 06/25/2024 Gilberto Hernandez [facility] [address] [place] [phone] 07/01/2024 Gilberto Hernandez Barretts esophagus without dysplasia K22.70 ; Other cirrhosis of liver K74.69 ; Fatty liver K76.0 ; Iron deficiency anemia, unspecified iron deficiency anemia type D50.9 and Duodenal adenoma D13.2 [facility] [address] [place] [phone] 03/17/2024 Gilberto Hernandez [facility] [address] [place] [phone] 07/21/2024 Gilberto Hernandez Anemia D64.9 [facility] [address] [place] [phone] 08/12/2024 Gilberto Hernandez Assessments Encounter Date Diagnosis [...] 03/14/20 21 LIVER PROFILE 03/14/2021 LIVER PROFILE 10/17/2019 LIVER PROFILE 03/27/2022 LIVER PROFILE 08/10/2018 LIVER PROFILE 02/12/2023 IRON + IBC (FE) 08/08/2021 IRON + IBC (FE) 07/21/2024 IRON + IBC (FE) 07/01/2024 CBC w DIFF 07/01/2024 CBC w DIFF 08/08/2021 CBC w DIFF 07/21/2024 CBC w DIFF 10/17/2019 CBC w DIFF 03/27/2022 CBC w DIFF 08/10/2018 CBC w DIFF 02/12/2023 PROTHROMBIN TIME (PT, INR) 03/27/2022 PROTHROMBIN TIME (PT, INR) 08/10/2018 PROTHROMBIN TIME (PT, INR) 03/14/2021 PROTHROMBIN TIME (PT, INR) 10/17/2019 ALPHA-FETOPROTEIN,TUMOR MARKER 3 ALPHA-FETOPROTEIN,TUMOR MARKER 2 ALPHA-FETOPROTEIN,TUMOR MARKER 1 ALPHA-FETOPROTEIN,TUMOR MARKER 0 MRI ABD W&WO CONTRAST [...] Baer Mary , 02/02/2025 09:50:00 AM, [address] [facility], [address], [place], [address], Insurance Providers Payer Name Payer Address Payer Phone Subscriber Number Group Number Insured Name Patient Relationship to Insured Coverage Start Date Coverage End Date [facility] [address] [facility] [place] DIA [phone] [id number] MARY LOU CELESTIN Self - patient is the insured Medical (General) History Medical History History ICD Code GERD with Ennis's esophagu s-areas of high and low grade dysplasia seen in Fall of 2009-has been going [place] [facility] [place]. Ferrer for ablation Rx of the Ennis's-most recent Rx was 01/2012-biopsies in 11/2011 showed the Ennis's, but no dysplasia Hypothyroidism HTN Hyperlipidemia Tubular adenomas removed from colon in and 2011 Denies AL,DM,CVA,Lung disease,renal dise ase Brain aneurysm with Agram and clipping i n 12/2007 Duodenal tubular adenoma removed in 2009 . Most recent EGD in [facility] s in 09/2012--Bx from 35 to 27 cm all neg for Ennis's esophagus nor dysplasia-same HH noted EGD 04/2013 with me at [facility]-- small areas of Ennis's mucosa, but no [...]
--- OUTSIDE RECORDS SUMMARY | 2024-12-15 14:21 | XMS_ITS | Clinical Summary ---
Author Organization [facility] Address [address] [place] [address] Care Team Providers Care Dining Service Inspector Name Role Phone Unavailable Primary Care Provider [...]
--- OUTSIDE RECORDS SUMMARY | 2024-12-15 14:21 | XMS_ITS | Patient Health Record ---
Author Organization [facility] Address [address] [facility] [place] [address] Care Team Providers Care Telecommunications Analyst Name Role Phone Christian Lewis MD Primary Care Provider Maite Mayfield Unavailable [phone] Allergies No Known Allergies Reason For Referral [...] Date [facility] [place] Medicare Advantage [address] [facility] [phone] Mary Lou Celestin Self - patient is the insured Medical (General) History Medical History History ICD Code High blood pressure Scarlet fever thyroid Chicken pox Surgical History Surgery Date(Month/Year) hysterectomy 1985 knee surgery, left shoulder surgery right stomach surgery 1995 brain aneurysm 2007 colonoscopy 05/29/23
[2024-12-15] MEDS: iohexoL 350 MG/ML 100 ML INFUS..BTL IV (14:26)
== END 2024-12-15 13:30 | disposition home or self-care (01) ==
LOC: HO.CT 13:29
PROVIDERS: PCP Internal Medicine; Visit Provider Internal Medicine
DX: J39.2 Other diseases of pharynx (principal)
CPT/HCPCS: 70491; Q9967

== ENCOUNTER → 2024-12-15 13:31 | Outpatient (BNV) | payer MEDICARE, SELFPAY | PROVIDERS: PCP Internal Medicine; Visit Provider Radiology Diagnostic Radiology | DX: R22.1 Localized swelling, mass and lump, neck (principal) | CPT/HCPCS: 70491 ==

== ENCOUNTER 2025-03-08 08:03 | Outpatient (REF) | payer MEDICARE, SELFPAY ==
--- NOTE | ~2025-03-08 | MM_ITS ---
EXAMINATION: MM SCREENING DIGITAL BREAST TOMOSYNTHESIS, BILATERAL CLINICAL INFORMATION: Screening. Asymptomatic. COMPARISON: Mammography: Comparison is made with available priors TECHNIQUE: Digital breast mammography with tomosynthesis is performed in both the craniocaudal and mediolateral oblique views along with computer-aided detection (CAD). FINDINGS: There are scattered areas of fibroglandular density. There are no significant masses, abnormal calcifications, or other abnormalities. MM/MM tomosynthesis screening BI IMPRESSION: No mammographic evidence of malignancy. ASSESSMENT: BI-RADS Category 1: Negative RECOMMENDATION: Routine annual mammography screening. 1 year F/U This examination should not preclude the clinical evaluation of a suspicious palpable abnormality. This patient's information was entered into a reminder system with a target due date for their next mammogram. Electronically signed by: Yu Garcia DO 03/09/2025 03:40 PM EDT
== END 2025-03-08 08:04 | disposition home or self-care (01) ==
LOC: HO.MAMMO 08:03
PROVIDERS: PCP Internal Medicine; Visit Provider Internal Medicine
DX: Z12.31 Encounter for screening mammogram for malignant neoplasm of breast (principal); I25.10 Atherosclerotic heart disease of native coronary artery without angina pectoris; Z95.2 Presence of prosthetic heart valve
CPT/HCPCS: 77063; 77067; 99212

== ENCOUNTER → 2025-03-08 08:15 | Outpatient (BNV) | payer MEDICARE, SELFPAY | PROVIDERS: PCP Internal Medicine; Visit Provider Internal Medicine | DX: Z12.31 Encounter for screening mammogram for malignant neoplasm of breast (principal) | CPT/HCPCS: 77063; 77067 ==

== ENCOUNTER 2025-03-08 14:49 | Outpatient (AMB) | payer MEDICARE, SELFPAY ==
--- OUTSIDE RECORDS SUMMARY | 2024-03-20 09:40 | XMS_ITS ---
Author Organization [facility] Address [address] [place] [address] Care Team Providers Care Spike Machine Operator Name Role Phone Joshua KNIGHT, Christian Primary Care Provider Gilberto Hollingsworth [phone] REASON FOR VISIT Patient presents today for marie's ,elevated lft's Encounters Encounter Location Date Provider Diagnosis [facility] [address] [place] [address] 03/20/2024 Gilberto Hernandez Plan Of Treatment Next Appt Details Provider Name:Gilberto Hernandez , 09/02/2025 09:00:00 AM, [address], [address], [place], [address], Progress Notes * TRENT RODRIGUEZ SDOB:1945 (79 yo F)Acc No.[id number]:03/20/2024 Progress Notes Patient: Saurabh PAYNE TRENT Katie Provider: Candace Hernandez MD :1945 A ge:78 Y S ex:Female Date:03/20/2024 Address:[address] [place] [address] [id number] Pcp:Christian Lewis MD Subjective: * Chief Complaints: * 1 . Patient presents today for marie's ,elevated lft's. * Medical History: Objective: * Vitals: Assessment: Plan: * Treatment: * * The named appointment provid er may or may not be the originator of this progress note, and it is not deemed complete until electronically signed by the appointment provider. Sign off status: Pending * Provider: Candace Hernandez MD Date: 05/20/2023 Generated for Suzanne caraballo/Ligia/Lexitting on: 06:54 PM EDT
--- OUTSIDE RECORDS SUMMARY | 2024-06-25 10:30 | XMS_ITS ---
Author Organization [facility] Address [address] [place] [address] [address] [place] [address] Care Team Providers Care Strategy Specialist Name Role Phone Joshua KNIGHT, Christian Primary Care Provider Gilberto Hollingsworth [phone] REASON FOR VISIT anemic, heme positive stool Encounters Encounter Location Date Provider Diagnosis [facility] [place] [address], [place] [id number] 06/25/2024 Gilberto Hernandez Plan Of Treatment Next Appt Details Provider Name:Gilberto Hernandez , 09/02/2025 09:00:00 AM, [address] [place] [address], [address], [place], [address], Progress Notes * TRETN RODRIGUEZ SDOB:1945 (79 yo F)Acc No.[id number]:06/25/2024 EGD/MAC Patient: TRENT GUSTAFSON Provider: Candace Hernandez MD :1945 A ge:78 Y S ex:Female Date:06/25/2024 Address:[address] [place] [address] [id number] Pcp:Christian Lewis MD Subjective: * Chief Complaints: * 1 . Anemic, heme positive stool. * Medical History: Objective: * Vitals: Assessment: Plan: * Treatment: * * The named appointment provid er may or may not be the originator of this progress note, and it is not deemed complete until electronically signed by the appointment provider. Sign off status: Pending * Provider: Candace Hernandez MD Date: 0 06/25/2024 Generated for Suzanne caraballo/Ligia/eTransmitting on: 1 06:54 PM EDT
--- OUTSIDE RECORDS SUMMARY | 2024-07-24 03:30 | XMS_ITS ---
Author Organization Christain Lewis MD Address [address] [place] [phone] Care Team Providers Care Deputy Building Guard Name Role Phone Christian Lewis Primary Care Provider [phone] Results Component Value Reference Range Notes UA ClnCatch+Micro w/rflx Cul t Reviewed date:07/24/2024 12:06:18 PM Interpretation: Performing Lab:[facility], [address] [place] [phone] Notes/Report: Urine, Clean Catch Color Urine Yellow Appearance Urine Clear PH 6.0 5.0-9.0 Glucose Urine UA Negative Negative mg/dL Urine Blood Negative Negative Specific [place] - Urine 1.015 1.005-1.025 Urine Protein Negative Neg-Trace mg/dL Urine Ketones Negative Negative mg/dL Nitrite Urine Negative Negative Leukocyte Esterase Urine Small (1+) Negative RBC Urine 0-2 0-2 /HPF WBC Urine 6-10 0-5 /HPF Squamous Epithelial Cell Urine 3-5 0-2 /HPF Bacteria Urine None Seen None Seen Hyaline Casts Urine 0-2 0-2 /LPF REASON FOR VISIT repeat U/A in 1 month Encounters Encounter Location Date Provider Diagnosis Christian Lewis MD [address] [place] [phone] 07/24/2024 Christian Lewis Hematuria, unspecified type R31.9 Assessments Encounter Date Diagnosis (ICD Code) Assessment Notes Treatment Notes Treatment Clinical Notes Section Notes 07/24/2024 Hematuria, unspecified type (ICD-10 - R31.9) Plan Of Treatment Next Appt Details Provider Name:Christian Martin brandon, 06/03/2025 07:30:00 AM, [address] [place] [address], [address], [place], [place], [phone], Provider Name:Christian Martin olur, 06/11/2025 09:00:00 AM, [address] [place] [address] Drive, [address], [place], [place], [phone], Provider Name:Christian Martin olur, 11/29/2025 07:45:00 AM, [address] [place] [address], Suite [facility], [place], [place], [phone], Provider Name:Christian Martin brandon, 12/07/2025 08:30:00 AM, [address] [place] [address], Suite [facility], [place], [place], [phone], Progress Notes * Mary Lou CELESTIN SDOB:1945 (79 yo F)Acc No.[id number]:07/24/2024 Progress Note Patient: Mary Lou GUSTAFSON Provider: Sascha Lewis MD :1945 A ge:79 Y S ex:Female Date:07/24/2024 Address:[address] [place], [place] [phone] Subjective: * Chief Complaints: * 1 . repeat U/A in 1 month. * Medical History: Objective: * Vitals: Assessment: * Assessment: 1. H ematuria, unspecified type - R31.9 (Primary) Plan: * Treatment: * * The named appointment provid er may or may not be the originator of this progress note, and it is not deemed complete until electronically signed by the appointment provider. Sign off status: Pending * Provider: Sascha Lewis MD Date: 0 07/24/2024 Generated for Suzanne caraballo/Ligia/eTransmitting on: 1 06:55 PM EDT
--- OUTSIDE RECORDS SUMMARY | 2024-08-03 06:32 | XMS_ITS ---
Author Organization Christian Lewis MD Address [address] [facility] [address] [place] [phone] Care Team Providers Care English Professor Name Role Phone Christian Lewis Primary Care Provider REASON FOR VISIT HCC Risk Codes 12/04 Encounters Encounter Location Date Provider Diagnosis Christian Lewis MD [address] [place] [address] [place] [phone] 08/03/2024 Christian Lewis Plan Of Treatment Next Appt Details Provider Name:Christian taylor, 06/03/2025 07:30:00 AM, [address] [place] [address], [address], [phone], Provider Name:Christian Martin ier, 06/11/2025 09:00:00 AM, [address] [place] [address], [address], [phone], Provider Name:Christian taylor, 11/29/2025 07:45:00 AM, [address] [place] [address], [address], [phone], Provider Name:Christian taylor, 12/07/2025 08:30:00 AM, [address] [place] [address], [address], [phone], Progress Notes * Mary Lou CELESTIN SDOB:1945 (79 yo F)Acc No.[id number]:08/03/2024 Patient: Mary Lou GUSTAFSON :1945 A ge:79 Y S ex:Female Address:[address] [place] [address], [place] [address] * true * Date: Generated for Suzanne caraballo/Ligia/eTransmitting on: 06:55 PM EDT
--- OUTSIDE RECORDS SUMMARY | 2024-10-05 11:19 | XMS_ITS ---
Author Organization Christian Lewis MD Address [address] [facility] [address] [place] [phone] Care Team Providers Care Assistant Boiler Operator Name Role Phone Christian Lewis Primary Care Provider [phone] REASON FOR VISIT Discharge summary rec'd Encounters Encounter Location Date Provider Diagnosis Christian Lewis MD [address] [place] [address] [address] [place] [phone] 10/05/2024 Christian Lewis Plan Of Treatment Next Appt Details Provider Name:Christian taylor, 06/03/2025 07:30:00 AM, [address] [place] [address], [address], [phone], Provider Name:Christian Martin ier, 06/11/2025 09:00:00 AM, [address] [place] [address], [address], [phone], Provider Name:Christian taylor, 11/29/2025 07:45:00 AM, [address] [place] [address], [address], [phone], Provider Name:Christian taylor, 12/07/2025 08:30:00 AM, [address] [place] [address], [phone], Progress Notes * Mary Lou CELESTIN SDOB:1945 (79 yo F)Acc No.[id number]:10/05/2024 Patient: Mary Lou GUSTAFSON :1945 A ge:79 Y S ex:Female Address:[address] [place] [address], [place] [address] * true * Date: Generated for Suzanne caraballo/Ligia/eTransmitting on: 06:56 PM EDT
--- OUTSIDE RECORDS SUMMARY | 2024-11-27 03:15 | XMS_ITS ---
Author Organization Christian Lewis MD Address [address] [place], [place] [id number] Care Team Providers Care Inside Sales Advisor Name Role Phone Christian Lewis Primary Care Provider [phone] Results Component Value Reference Range Notes Complete Blood Count Auto Di ff Reviewed date:11/27/2024 12:51:50 PM Interpretation: Performing Lab:[facility], [address] [place] [phone] Notes/Report: White Blood Count 3.3 4.8-10.8 X10*3/uL Red Blood Count 4.12 4.20-5.50 X10*6/uL Hemoglobin 11.7 12.0-16.0 g/dl Hematocrit 34.6 37.0-47.0 % Mean Corpuscular Volume 84.0 80.0-98.0 fL Mean Corpuscular Hemoglobin 28.4 27.0-33.0 pg Mean Corpuscular HGB Conc 33.8 31.0-35.0 g/dl Red Cell Distribution Width 14.5 11.0-16.0 % Platelet Count 73 160-400 X10*3/uL Mean Platelet Volume 12.8 9.4-12.3 fL Neutrophils Percent Auto 55.8 45-73 % Imm Gran Pct Auto 0.3 0.0-0.4 % Lymphocytes Percent Auto 31.1 20-40 % Monocytes Percent Auto 9.5 2-11 % Eosinophils Percent Auto 2.7 0-4 % Basophils Percent Auto 0.6 0-2 % NRBC Pct Auto 0.0 0.0-0.2 /100WBC Neutrophils Absolute Auto 1.8 2.0-8.3 x10*3/u L Imm Gran Abs Auto 0.01 0.00-0.03 X10*3/uL Lymphocytes Absolute Auto 1.0 1.2-4.9 X10*3/u L Monocytes Absolute Auto 0.3 0.1-1.2 X10*3/uL Eosinophils Absolute Auto 0.1 0.0-0.4 X10*3/u L Basophils Absolute Auto 0.0 0.0-0.2 X10*3/uL NRBC Abs Auto 0.000 0.0-0.012 X10*3/uL Comprehensive [place]. Panel Fa st Reviewed date:11/27/2024 12:56:13 PM Interpretation: Performing Lab:[facility], [address] [place] [phone] Notes/Report: Sodium 140 135-145 mmol/L Potassium 4.0 3.3-5.1 mmol/L Chloride 106 96-108 mmol/L Carbon Dioxide 27 22-29 mmol/L Anion Gap 11 12-20 Blood Urea Nitrogen 10 9-16 mg/dL Creatinine 0.68 0.5-1.4 mg/dL Estimated Glomerular Filt Rate > 60 Chronic Kidney Disease: Estimated GFR < 60 mL/min/1.73m2 Severe Kidney Disease: Estimated GFR < 15 mL/min/1.73m2 Glucose Fasting 113 60-99 mg/dL A fasting glucose from 100-125 mg/dl is considered impaired (pre-diabetes). Calcium 9.6 8.4-10.2 mg/dL Bilirubin Total 0.8 0.0-1.0 mg/dL Aspartate Amino Transferase 34 5-31 U/L Alanine Aminotransferase 9 0-31 U/L Total Protein 6.2 6.5-8.0 g/dL Albumin Level 3.9 3.5-5.0 g/dL Alkaline Phosphatase 59 39-117 U/L IRON PROFILE Reviewed date:11/27/2024 12:46:55 PM Interpretation: Performing Lab:[facility], [address] [place] [phone] Notes/Report: Iron 47 30-160 mcg/dL Total Iron Binding Capacity 286 228-428 mcg/d L Percent Iron Saturation 16 15-50 % Unsaturated Iron Binding 239 Lipid Panel Reviewed date:11/27/2024 12:47:01 PM Interpretation: Performing Lab:[facility], [address] [place] [phone] Notes/Report: Triglycerides 75 <150 mg/dL Desirable Triglyceride: less than 150 mg/dL Borderline High Triglyceride 150-199 mg/dL High Triglyceride: 200-499 mg/dL Very High Triglyceride: greater than or equal to 5OO mg/dL Cholesterol 105 <200 mg/dL Desirable Cholesterol: less than 200 mg/dL Borderline High Cholesterol: 200-239 mg/dL High Cholesterol: greater than 239 mg/dL LDL Cholesterol Calculated 49 <100 mg/dL Desirable LDL: less than 100 mg/dL Near Optimal/Above Optimal LDL: 110-129 mg/dL Borderline High LDL: 130-159 mg/dL High LDL: 160-189 mg/dL Very High LDL: greater than or equal to 190 mg/dL HDL Cholesterol 41 >40 mg/dL Desirable HDL: greater than 40 mg/dL Note: This HDL assay may give artificially low results in patients with liver disease. Vitamin D 25-OH Total Reviewed date:11/27/2024 12:47:19 PM Interpretation: Performing Lab:[facility], [address] [place] [phone] Notes/Report: Vitamin D 25-OH Total 18.7 >30 ng/mL Health Based Reference Values* < 20 ng/mL Deficient 20-30 ng/mL Insufficient > 30 ng/mL Sufficient *Quinn BELL. N Engl J Med. 2007;357:266-280 There is no well-established upper level of normal vitamin D levels. Some laboratories use 50 ng/mL as an upper limit of normal. However, toxicity is patient-dependent and may occur at any level. Careful correlation with the patient's presentation is necessary and, if there is concern for vitamin D toxicity, treatment should be considered irrespective of the serum level. Care must be taken in interpreting Vitamin [...] confirmed with another method such as LC-MS/MS. TSH reflex Free T4 Reviewed date:11/27/2024 12:46:25 PM Interpretation: Performing Lab:[address] [phone] Notes/Report: TSH reflex Free T4 2.72 0.32-4.0 uIU/mL Microalbumin, Random Reviewed date:11/27/2024 12:46:32 PM Interpretation: Performing Lab:[facility], [address] [place] [phone] Notes/Report: Creatinine Urine 58.19 Microalbumin Urine < 5.0 Microalbum/Creatinine Ratio Ur TNP <30 ug/mg cr Unable to calculate albumin/creatinine ratio due to low microalbumin or creatinine result. Hemoglobin A1c Reviewed date:11/27/2024 12:46:18 PM Interpretation: Performing Lab:[facility], [address] [place] [phone] Notes/Report: Hemoglobin A1c % 4.8 <6.0 % Hemoglobin A1C Reference Range Adults: 4.8 - 6.0 % Non diabetic: < 6.0 % Goal: < 7.0 % Additional Action Suggested: > 8.0 % Note: Hemoglobin A1c results are invalid for patients with abnormal amounts of HbF. Blood transfusions may impact the HbA1c concentration in the patient sample. Estimated Average Glucose 91 eAG = Estimated average glucose which is %A1C expressed as average glucose, using the formula of the D4D-Kgasepz Average Glucose study (ADAG), Diabetes Care, Vol.31,#8, Dec. 2007 REASON FOR VISIT fasting yearly labs Encounters Encounter Location Date Provider Diagnosis Christian Lewis MD [address] [place], [place] [id number] 11/27/2024 Christian Lewis Blood tests for rout ine general physical examination Z00.00 ; Essential hypertension I10 ; Prediabetes R73.09 ; Acquired hypothyroidism E03.9 ; Pure hypercholesterolemia E78.00 ; Lymphocytosis D72.820 ; Vitamin D deficiency E55.9 and Iron deficiency anemia, unspecified iron deficiency anemia type D50.9 Assessments Encounter Date Diagnosis (ICD Code) Assessment Notes Treatment Notes Treatment Clinical Notes Section Notes 11/27/[address] ine general physical examination (ICD-10 - Z00.00) 11/27/2024 Essential hypertensi on (ICD-10 - I10) 11/27/2024 Prediabetes (ICD-10 - R73.09) 11/27/2024 Acquired hypothyroid ism (ICD-10 - E03.9) 11/27/2024 Pure hypercholesterolemia (ICD-10 - E78.00) 11/27/2024 Lymphocytosis (ICD-1 0 - D72.820) 11/27/2024 Vitamin D deficiency (ICD-10 - E55.9) 11/27/2024 Iron deficiency anem ia, unspecified iron deficiency anemia type (ICD-10 - D50.9) Plan Of Treatment Next Appt Details Provider Name:Christian taylor, 06/03/2025 07:30:00 AM, [address] [place] [address], [address], [phone], Provider Name:Christian rainesr, 06/11/2025 09:00:00 AM, [address] [place] [address], [address], [id number], Provider Name:Christian taylor, 11/29/2025 07:45:00 AM, [address] [place] [address], [address], [id number], Provider Name:Christian taylor, 12/07/2025 08:30:00 AM, [address] [place] [address], [address], [id number], Progress Notes * Mary Lou RODRIGUEZ SDOB:1945 (79 yo F)Acc No.[id number]:11/27/2024 Progress Note Patient: Mary Lou GUSTAFSON Provider: Sascha Lewis MD :1945 A ge:79 Y S ex:Female Date:11/27/2024 Address:[address] [place], [place] [id number] Subjective: * Chief Complaints: * 1 . Fasting yearly labs. * Medical History: Objective: * Vitals: Assessment: * Assessment: 1. B lood tests for routine general physical examination - Z00.00 (Primary) 2 .?Essential hypertension - I10 3 . P rediabetes - R73.09 4 .?Acquired hypothyroidism - E03.9 5 . P ure hypercholesterolemia - E78.00 6. L ymphocytosis - D72.820 7 . V itamin D deficiency - E55.9? 8. I simona deficiency anemia, unspecified iron deficiency anemia type - D50.9? Plan: * Treatment: 2. E ssential hypertension L AB: Complete Blood Count Auto Diff (Collection Date & Time - 11/27/2024 07:15 AM) L AB: Comprehensive [place]. Panel Fast (Collection Date & Time - 11/27/2024 07:15 AM) L AB: IRON PROFILE (Collection Date & Time - 11/27/2024 07:15 AM) L AB: Lipid Panel (Collection Date & Time - 11/27/2024 07:15 AM) L AB: Vitamin D 25-OH Total (Collection Date & Time - 11/27/2024 07:15 AM) L AB: TSH reflex Free T4 (Collection Date & Time - 11/27/2024 07:15 AM) L AB: Microalbumin, Random (Collection Date & Time - 11/27/2024 07:15 AM) L AB: Hemoglobin A1c (Collection Date & Time - 11/27/2024 07:15 AM) 3. P rediabetes L AB: Complete Blood Count Auto Diff (Collection Date & Time - 11/27/2024 07:15 AM) L AB: Comprehensive [place]. Panel Fast (Collection Date & Time - 11/27/2024 07:15 AM) L AB: IRON PROFILE (Collection Date & Time - 11/27/2024 07:15 AM) L AB: Lipid Panel (Collection Date & Time - 11/27/2024 07:15 AM) L AB: Vitamin D 25-OH Total (Collection Date & Time - 11/27/2024 07:15 AM) L AB: TSH reflex Free T4 (Collection Date & Time - 11/27/2024 07:15 AM) L AB: Microalbumin, Random (Collection Date & Time - 11/27/2024 07:15 AM) L AB: Hemoglobin A1c (Collection Date & Time - 11/27/2024 07:15 AM) 4. A cquired hypothyroidism L AB: Complete Blood Count Auto Diff (Collection Date & Time - 11/27/2024 07:15 AM) L AB: Comprehensive [place]. Panel Fast (Collection Date & Time - 11/27/2024 07:15 AM) L AB: IRON PROFILE (Collection Date & Time - 11/27/2024 07:15 AM) L AB: Lipid Panel (Collection Date & Time - 11/27/2024 07:15 AM) L AB: Vitamin D 25-OH Total (Collection Date & Time - 11/27/2024 07:15 AM) L AB: TSH reflex Free T4 (Collection Date & Time - 11/27/2024 07:15 AM) L AB: Microalbumin, Random (Collection Date & Time - 11/27/2024 07:15 AM) L AB: Hemoglobin A1c (Collection Date & Time - 11/27/2024 07:15 AM) 5. P ure hypercholesterolemia L AB: Complete Blood Count Auto Diff (Collection Date & Time - 11/27/2024 07:15 AM) L AB: Comprehensive [place]. Panel Fast (Collection Date & Time - 11/27/2024 07:15 AM) L AB: IRON PROFILE (Collection Date & Time - 11/27/2024 07:15 AM) L AB: Lipid Panel (Collection Date & Time - 11/27/2024 07:15 AM) L AB: Vitamin D 25-OH Total (Collection Date & Time - 11/27/2024 07:15 AM) L AB: TSH reflex Free T4 (Collection Date & Time - 11/27/2024 07:15 AM) L AB: Microalbumin, Random (Collection Date & Time - 11/27/2024 07:15 AM) L AB: Hemoglobin A1c (Collection Date & Time - 11/27/2024 07:15 AM) 6. L ymphocytosis L AB: Complete Blood Count Auto Diff (Collection Date & Time - 11/27/2024 07:15 AM) L AB: Comprehensive [place]. Panel Fast (Collection Date & Time - 11/27/2024 07:15 AM) L AB: IRON PROFILE (Collection Date & Time - 11/27/2024 07:15 AM) L AB: Lipid Panel (Collection Date & Time - 11/27/2024 07:15 AM) L AB: Vitamin D 25-OH Total (Collection Date & Time - 11/27/2024 07:15 AM) L AB: TSH reflex Free T4 (Collection Date & Time - 11/27/2024 07:15 AM) L AB: Microalbumin, Random (Collection Date & Time - 11/27/2024 07:15 AM) L AB: Hemoglobin A1c (Collection Date & Time - 11/27/2024 07:15 AM) 7. V itamin D deficiency L AB: Complete Blood Count Auto Diff (Collection Date & Time - 11/27/2024 07:15 AM) L AB: Comprehensive [place]. Panel Fast (Collection Date & Time - 11/27/2024 07:15 AM) L AB: IRON PROFILE (Collection Date & Time - 11/27/2024 07:15 AM) L AB: Lipid Panel (Collection Date & Time - 11/27/2024 07:15 AM) L AB: Vitamin D 25-OH Total (Collection Date & Time - 11/27/2024 07:15 AM) L AB: TSH reflex Free T4 (Collection Date & Time - 11/27/2024 07:15 AM) L AB: Microalbumin, Random (Collection Date & Time - 11/27/2024 07:15 AM) L AB: Hemoglobin A1c (Collection Date & Time - 11/27/2024 07:15 AM) 8. I simona deficiency anemia, unspecified iron deficiency anemia type L AB: Complete Blood Count Auto Diff (Collection Date & Time - 11/27/2024 07:15 AM) L AB: Comprehensive [place]. Panel Fast (Collection Date & Time - 11/27/2024 07:15 AM) L AB: IRON PROFILE (Collection Date & Time - 11/27/2024 07:15 AM) L AB: Lipid Panel (Collection Date & Time - 11/27/2024 07:15 AM) L AB: Vitamin D 25-OH Total (Collection Date & Time - 11/27/2024 07:15 AM) L AB: TSH reflex Free T4 (Collection Date & Time - 11/27/2024 07:15 AM) L AB: Microalbumin, Random (Collection Date & Time - 11/27/2024 07:15 AM) L AB: Hemoglobin A1c (Collection Date & Time - 11/27/2024 07:15 AM) * Procedure Codes: 3 6415 VENIPUNCT, ROUTINE* * * The named appointment provid er may or may not be the originator of this progress note, and it is not deemed complete until electronically signed by the appointment provider. Sign off status: Pending * Provider: Sascha Lewis MD Date: 0 11/27/2024 Generated for Suzanne caraballo/Ligia/Lxeitting on: 1 06:56 PM EDT
--- OUTSIDE RECORDS SUMMARY | 2024-12-04 05:30 | XMS_ITS ---
Author Organization Christian Lewis MD Address [address] [place], [place] [phone] Care Team Providers Care Strategic Consultant Name Role Phone Christian Lewis Primary Care Provider Allergies Allergen (clinical drug ingredient) Drug/Non Drug Allergy documented on EMR Reaction Allergy Type Onset Date Status lisinopril Lisinopril cough Drug Allergy Activ e Results Component Value Reference Range Notes Occult Blood, Stool, Guaiac Reviewed date:12/04/2024 11:56:44 AM Interpretation:Negative Performing Lab: Notes/Report: Negative Occult Blood, Stool, Guaiac Neg REASON FOR VISIT annual visit, HCC codes need noted K74.69 Cirrhosis of Liver Medications Medication SIG (Take, Route, Frequency, Duration) Notes Start Date End Date Status Levothyroxine Sodium 100 MCG TAKE 1 TABLET BY MOUTH EVERY DAY IN THE MORNING ON EMPTY STOMACH Active Ferrous Sulfate 325 (65 Fe) MG 1 tablet Orally Once a day 02/23/2021 Active Ursodiol 500 MG TAKE 2 TABLETS BY MOUTH EVERY MORNING AND 1 TAB EVERY EVENING 90 for 90 Active Atorvastatin Calcium 20 MG TAKE 1 TABLET BY MOUTH EVERY DAY Active Valsartan-hydroCHLOROthiaz malcolm 160-12.5 MG TAKE 1 TABLET BY MOUTH EVERY DAY for 90 Not-Taking Plavix 75 MG 1 tablet Orally Once a day Active Vitamin B12 1000 MCG 1 tablet Orally Onc e a day Active Omeprazole 40 MG 1 capsule Orally Onc e a day Active Vitamin D 2000 UNIT Orally Active Social History Tobacco Use: Social History [...] Problem Status W/U Status Risk Notes Problem History of heart valve repair with prosthesis ([id number]) 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 Problem Non-Hodgkin lymphoma (351687702) Lymphoma (C85.90) Active confirmed Vital Signs Blood pressure systolic 132 mm Hg 12/05/19 25 Blood pressure diastolic 66 mm Hg 025 Height 65.25 in 12/04/2024 Weight 180 lbs 12/04/2024 BMI 29.72 kg/m2 12/04/2024 weight is down 10 pounds [facility] 06-30-24 Encounters Encounter Location Date Provider Diagnosis Christian Lewis MD [address] [place] [phone] 12/04/2024 Christian Lewis Essential hypertensi on I10 ; Annual physical exam Z00.00 ; Neutropenia, unspecified type D70.9 ; Aortic valve replaced Z95.2 ; Lymphoma C85.90 ; Vitamin D deficiency E55.9 ; Acquired hypothyroidism E03.9 ; Prediabetes R73.09 ; Pure hypercholesterolemia E78.00 ; Iron deficiency anemia, unspecified iron deficiency anemia type D50.9 ; Reflux esophagitis K21.00 ; Colon cancer screening Z12.11 and Depression screening Z13.31 Assessments Encounter Date Diagnosis (ICD Code) Assessment Notes Treatment Notes Treatment Clinical Notes Section Notes 12/04/2024 Essential hypertensi on (ICD-10 - I10) restart bp med, will continue to monitor 12/04/2024 Annual physical exam (ICD-10 - Z00.00) labs reviewed and discussed with patient 12/04/2024 Neutropenia, unspeci fied type (ICD-10 - D70.9) stable, will contiue to monitor 12/04/2024 Aortic valve replace d (ICD-10 - Z95.2) doing well 12/04/2024 Lymphoma (ICD-10 - C85.90) followed by dr schwartz and has not been treated yet 12/04/2024 Vitamin D deficiency (ICD-10 - E55.9) double vit d, will continue to monitor 12/04/2024 Acquired hypothyroid ism (ICD-10 - E03.9) stable, will continue current regiment 12/04/2024 Prediabetes (ICD-10 - R73.09) stable, no need for medication at this time 12/04/2024 Pure hypercholesterolemia (ICD-10 - E78.00) stable, will continue current regiment 12/04/2024 Iron deficiency anem ia, unspecified iron deficiency anemia type (ICD-10 - D50.9) stable, will continue current regiment 12/04/2024 Reflux esophagitis (ICD-10 - K21.00) doing well, will continue current regiment 12/04/2024 Colon cancer screeni ng (ICD-10 - Z12.11) guaiac negative 12/04/2024 Depression screening (ICD-10 - Z13.31) negative screen Plan Of Treatment Medication Medication Name Sig Start Date Stop Date Notes Levothyroxine Sodium 100 MCG TAKE 1 TABL ET BY MOUTH EVERY DAY IN THE MORNING ON EMPTY STOMACH Ferrous Sulfate 325 (65 Fe) MG 1 tablet Orally Once a day 02/23/2021 Atorvastatin Calcium 20 MG TAKE 1 TABLET BY MOUTH EVERY DAY Omeprazole 40 MG 1 capsule Orally Once a day Vitamin D 2000 UNIT Orally Treatment Notes Assessment Notes Essential hypertension restart bp med, w ill continue to monitor Annual physical exam labs reviewed and d iscussed with patient Neutropenia, unspecified type stable, wi ll contiue to monitor Aortic valve replaced doing well Lymphoma followed by dr tree jean and has not been treated yet Vitamin D deficiency double vit d, will continue to monitor Acquired hypothyroidism stable, will carrie tinemmanuel current regiment Prediabetes stable, no need for medication at this time Pure hypercholesterolemia stable, will c ontinue current regiment Iron deficiency anemia, unsp ecified iron deficiency anemia type stable, will continue current regiment Reflux esophagitis doing well, will con ora current regiment Colon cancer screening guaiac negative Depression screening negative screen Next Appt Details Follow Up: 2 Months, Reason: Provider Name:Christian Martin ier, 06/03/2025 07:30:00 AM, [address], [address], [place], [place], [phone], Provider Name:Christian Martin olur, 06/11/2025 09:00:00 AM, [address], [address], [place], [place], [phone], Provider Name:Christian Martin olur, 11/29/2025 07:45:00 AM, [address], [address], [place], [place], [phone], Provider Name:Christian Martin olur, 12/07/2025 08:30:00 AM, [address], Suite [facility], [place], [place], [phone], Progress Notes * Mary Lou CELESTIN SDOB:1945 (79 yo F)Acc No.[id number]:12/04/2024 Progress Notes Patient: Saurabh GUILLERMOMICHELLEMary Lou Katie Provider: Sacsha Lewis MD :1945 A ge:79 Y S ex:Female Date:12/04/2024 Address:[address] [place], [place] [phone] Subjective: * Chief Complaints: * A nnual visitHCC codes need noted K74.69 Cirrhosis of Liver * HPI: D epression Screening: PHQ-9 L ittle interest or pleasure in doing things N ot at all, F eeling down, depressed, or hopeless N ot at all, T rouble falling or staying asleep, or sleeping too much N ot at all, F eeling tired or having little energy N ot at all, P oor appetite or overeating N ot at all, F eeling bad about yourself or that you are a failure, or have let yourself or your family down N ot at all, T rouble concentrating on things, such as reading the newspaper or watching television N ot at all, M oving or speaking so slowly that other people could have noticed; or the opposite, being so fidgety or restless that you have been moving around a lot more than usual N ot at all, T houghts that you would be better off or of hurting yourself in some way N ot at all, T otal Score 0 . I nterpretation and Intervention D epression Screening Findings N egative, F ollow-Up for Depression : review of PHQ-9 found negative result, no follow-up needed. C ommunication Needs: Communication Needs D oes the patient have a hearing impairment N o, D oes the patient have a vision impairment? Y es, I f yes, what is the vision impairment? G lasses, D oes the patient have a cognition impairment? N o. F all Risk: History H ave you had any falls with injury in the past year? N o, H ave you had two or more falls in the past year? N o. S JANAY Questions: SDOH Questions I n the past year have you been worried about losing housing? N o, I n the past year have you or any family members you live with been unable to get any of the following when it was really needed? Check all that apply: N one. S ymptom(s): patient is a 79 yo female here for annual visit with review of recent labs and follow up of chronic issues h aving some high bp readings at physical [facility]/ has been off her bp med as it was too low/ patient does not have cirrhosis but a fattyu liver. * ROS: G eneral/Constitutional: Change in appetite d enies. C hills d enies. F ever d enies. O phthalmologic: Blurred vision d enies. D ischarge d enies. P ain d enies. E NT: Decreased hearing d enies. S ore throat d enies.?Swollen glands d enies. E ndocrine: Cold intolerance d enies. E xcessive thirst d enies. H eat intolerance d enies. W eight loss d enies. R espiratory: Cough d enies. S hortness of breath at rest d enies. S hortness of breath with exertion d enies. W heezing d enies. C ardiovascular: Chest pain at rest d enies. C hest pain with exertion?denies. I rregular heartbeat d enies. S hortness of breath d enies. ? G astrointestinal: Abdominal pain d enies. C hange in bowel habits d enies. D iarrhea d enies. N ausea d enies. R ectal bleeding d enies. V omiting d enies . G enitourinary: Blood in urine d enies. D ifficulty urinating d enies. F requent urination d enies. U rinary incontinence D enies. M usculoskeletal: Painful joints d enies. W eakness d enies. ? S kin: Dry skin d enies. I tching d enies. D enies?Mole(s), changes in moles, new moles or any lesions of concern. D enies P hotosensitivity. R andrea d enies. N eurologic: Dizziness d enies. F ainting d enies. H eadache?denies. * Medical History: * Surgical History: * Hospitalization/Major Diagno stic Procedure: * Family History: F ather: 44 yrs, coronary artery disease. M other: 86 yrs, family history unknown . P aternal Grand Father: . P aternal Grand Mother: , breast cancer. M aternal Grand Mother: , breast cancer. 2 son(s) - healthy. . father, heart attack, NO FA Denies mental health/substance abuse family history, RABIA HISTORY OF MENTAL ILLNESS OR SUBSTANCE ABUSE, Denies mental health/substance abuse family history, No pertinent family medical history, Denies mental health/substance abuse family history. * Social History: T obacco Use: T obacco Use/Smoking P atient is a f ormer smoker, H ow long has it been since you last smoked? > 10 years, A dditional Findings: Tobacco Non-User F ormer smoker, currently using no form of tobacco. D rugs/Alcohol: A lcohol Screen D id you have a drink containing alcohol in the past year? N o, P oints 0 , I nterpretation N egative. M iscellaneous: C affeine: yes, frequency:, 3-4 cups per day. Children: yes. Community involvements: no. Exercise: yes, 1-2 times per week walking and PT twice a week. Home smoke detector use: yes. Housing: owning. Living with: alone. Marital status: single. Occupation: retired. Pets: none. Travel outside of the [place]: no. * Medications: T akingVitamin B12 1000 MCG Tablet 1 tablet Orally Once a day Plavix 75 MG Tablet 1 tablet Orally Once a day Vitamin D 2000 UNIT Capsule Orally Omeprazole 40 MG Capsule Delayed Release 1 capsule Orally Once a day Ursodiol 500 MG Tablet TAKE 2 TABLETS BY MOUTH EVERY MORNING AND 1 TAB EVERY EVENING 90 Ferrous Sulfate 325 (65 Fe) MG Tablet 1 tablet Orally Once a day Levothyroxine Sodium 100 MCG Tablet TAKE 1 TABLET BY MOUTH EVERY DAY IN THE MORNING ON EMPTY STOMACH Atorvastatin Calcium 20 MG Tablet TAKE 1 TABLET BY MOUTH EVERY DAY Taking Vitamin B12 1000 MCG Tablet 1 tablet Orally Once a day Taking Plavix 75 MG Tablet 1 tablet Orally Once a day Taking Vitamin D 2000 UNIT Capsule Orally Taking Omeprazole 40 MG Capsule Delayed Release 1 capsule Orally Once a day Taking Ursodiol 500 MG Tablet TAKE 2 TABLETS BY MOUTH EVERY MORNING AND 1 TAB EVERY EVENING 90 Taking Ferrous Sulfate 325 (65 Fe) MG Tablet 1 tablet Orally Once a day Taking Levothyroxine Sodium 100 MCG Tablet TAKE 1 TABLET BY MOUTH EVERY DAY IN THE MORNING ON EMPTY STOMACH Taking Atorvastatin Calcium 20 MG Tablet TAKE 1 TABLET BY MOUTH EVERY DAY Not-Taking/PRNValsartan-hydroCHLOROthiazide 160-12.5 MG Tablet TAKE 1 TABLET BY MOUTH EVERY DAY Medication List reviewed and reconciled with the patientNot-Taking/PRN Valsartan-hydroCHLOROthiazide 160-12.5 MG Tablet TAKE 1 TABLET BY MOUTH EVERY DAY Medication List reviewed and reconciled with the patient * Allergies: L isinopril: coughyes[Allergies Verified] Objective: * Vitals: H t: 65.25, Wt: 180, BMI:29.72, BP:132/66, Wt-k.65. weight is down 10 pounds since 06-30-24. * P ast Orders: L ab:Vitamin D 25-OH Total (Order Date - 11/27/2024) (Collection Date & Time - 11/27/2024 07:15 AM) Value Reference Range Vitamin D 25-OH Total 18.7 L >30 - ng/mL L ab:TSH reflex Free T4 (Order Date - 11/27/2024) (Collection Date & Time - 11/27/2024 07:15 AM) Value Reference Range TSH reflex Free T4 2.72 0.32-4.0 - uIU/mL L ab:Complete Blood Count Auto Diff (Order Date - 11/27/2024) (Collection Date & Time - 11/27/2024 07:15 AM) Value Reference Range White Blood Count 3.3 L 4.8-10.8 - X10*3/uL Red Blood Count 4.12 L 4.20-5.50 - X10*6/uL Hemoglobin 11.7 L 12.0-16.0 - g/dl Hematocrit 34.6 L 37.0-47.0 - % Mean Corpuscular Volume 84.0 80.0-98.0 - fL Mean Corpuscular Hemoglobin 28.4 27.0-33.0 - pg Mean Corpuscular HGB Conc 33.8 31.0-35.0 - g/ dl Red Cell Distribution Width 14.5 11.0-16.0 - % Platelet Count 73 L 160-400 - X10*3/uL Mean Platelet Volume 12.8 H 9.4-12.3 - fL Neutrophils Percent Auto 55.8 45-73 - % Imm Gran Pct Auto 0.3 0.0-0.4 - % Lymphocytes Percent Auto 31.1 20-40 - % Monocytes Percent Auto 9.5 2-11 - % Eosinophils Percent Auto 2.7 0-4 - % Basophils Percent Auto 0.6 0-2 - % NRBC Pct Auto 0.0 0.0-0.2 - /100WBC Neutrophils Absolute Auto 1.8 L 2.0-8.3 - x10* 3/uL Imm Gran Abs Auto 0.01 0.00-0.03 - X10*3/uL Lymphocytes Absolute Auto 1.0 L 1.2-4.9 - X10* 3/uL Monocytes Absolute Auto 0.3 0.1-1.2 - X10*3/ uL Eosinophils Absolute Auto 0.1 0.0-0.4 - X10* 3/uL Basophils Absolute Auto 0.0 0.0-0.2 - X10*3/ uL NRBC Abs Auto 0.000 0.0-0.012 - X10*3/uL L ab:Microalbumin, Random (Order Date - 11/27/2024) (Collection Date & Time - 11/27/2024 07:15 AM) Value Reference Range Creatinine Urine 58.19 - mg/dL Microalbumin Urine < 5.0 - mg/L Microalbum Creatinine Ratio Ur TNP <30 - ug/ mg cr L ab:Comprehensive [place]. Panel Fast (Order Date - 11/27/2024) (Collection Date & Time - 11/27/2024 07:15 AM) Value Reference Range Sodium 140 135-145 - mmol/L Bilirubin Total 0.8 0.0-1.0 - mg/dL Aspartate Amino Transferase 34 H 5-31 - U/L Alanine Aminotransferase 9 0-31 - U/L Total Protein 6.2 L 6.5-8.0 - g/dL Albumin Level 3.9 3.5-5.0 - g/dL Alkaline Phosphatase 59 39-117 - U/L Potassium 4.0 3.3-5.1 - mmol/L Chloride 106 96-108 - mmol/L Carbon Dioxide 27 22-29 - mmol/L Anion Gap 11 L 12-20 - Blood Urea Nitrogen 10 9-16 - mg/dL Creatinine 0.68 0.5-1.4 - mg/dL Estimated Glomerular Filt Rate > 60 - Glucose Fasting 113 H 60-99 - mg/dL Calcium 9.6 8.4-10.2 - mg/dL L ab:Hemoglobin A1c (Order Date - 11/27/2024) (Collection Date & Time - 11/27/2024 07:15 AM) Value Reference Range Hemoglobin A1c % 4.8 <6.0 - % Estimated Average Glucose 91 - mg/dL L ab:IRON PROFILE (Order Date - 11/27/2024) (Collection Date & Time - 11/27/2024 07:15 AM) Value Reference Range Iron 47 30-160 - mcg/dL Total Iron Binding Capacity 286 228-428 - mc g/dL Percent Iron Saturation 16 15-50 - % Unsaturated Iron Binding 239 - ug/dL L ab:Lipid Panel (Order Date - 11/27/2024) (Collection Date & Time - 11/27/2024 07:15 AM) Value Reference Range Triglycerides 75 <150 - mg/dL Cholesterol 105 <200 - mg/dL LDL Cholesterol Calculated 49 <100 - mg/dL HDL Cholesterol 41 >40 - mg/dL * Examination: G eneral Examination: GENERAL APPEARANCE: w ell developed, well nourished, in no acute distress. HEAD: n ormocephalic, atraumatic. EYES: p upils equal, round, reactive to light and accommodation, sclera non-icteric. EARS: n ormal. ORAL CAVITY: m ucosa moist. THROAT: c lear. NECK/THYROID: n aida supple, full range of motion, no cervical lymphadenopathy, no bruits. SKIN: w arm and dry, no suspicious lesions. HEART: r egular rate and rhythm, S1, S2 normal, no murmurs.? LUNGS: c lear to auscultation bilaterally. BREASTS: N o mass, no lump. ABDOMEN: s oft, nontender, nondistended, bowel sounds present, normal, no organomegaly , no masses palpable. RECTAL EXAM: n o masses palpable, stool guaiac negative.? FEMALE GENITOURINARY: n ot done. EXTREMITIES: n o clubbing, cyanosis, or edema. NEUROLOGIC: n onfocal, motor strength normal upper and lower extremities, sensory exam intact. Assessment: * Assessment: 1. A nnual physical exam - Z00.00 (Primary) 2 . E ssential hypertension - I10 3 . N eutropenia, unspecified type - D70.9 4 . A ortic valve replaced - Z95.2 5 . L ymphoma - C85.90 6 . V itamin D deficiency - E55.9 7 . A cquired hypothyroidism - E03.9 8 . P rediabetes - R73.09 9 . P ure hypercholesterolemia - E78.00 1 0. I smiona deficiency anemia, unspecified iron deficiency anemia type - D50.9 1 1. Reflux esophagitis - K21.00 1 2. C olon cancer screening - Z12.11 ? 1 3. D epression screening - Z13.31 Plan: * Treatment: 2. E ssential hypertension Notes: restart bp med, will continue to monitor 3. N eutropenia, unspecified type Notes: stable, will contiue to monitor 4. A ortic valve replaced Notes: doing well 5. L ymphoma Notes: followed by dr schwartz and has not been treated yet 6. V itamin D deficiency Continue Vitamin D Capsule, 2000 UNIT, Orally. Notes: double vit d, will continue to monitor 7. A cquired hypothyroidism Continue Levothyroxine Sodium Tablet, 100 MCG, TAKE 1 TABLET BY MOUTH EVERY DAY IN THE MORNING ON EMPTY STOMACH. Notes: stable, will continue current regiment 8. P rediabetes Notes: stable, no need for medication at this time 9. P ure hypercholesterolemia Continue Atorvastatin Calcium Tablet, 20 MG, TAKE 1 TABLET BY MOUTH EVERY DAY. Notes: stable, will continue current regiment 10. I simona deficiency anemia, unspecified iron deficiency anemia type Continue Ferrous Sulfate Tablet, 325 (65 Fe) MG, 1 tablet, Orally, Once a day. Notes: stable, will continue current regiment 11. R eflux esophagitis Continue Omeprazole Capsule Delayed Release, 40 MG, 1 capsule, Orally, Once a day. Notes: doing well, will continue current regiment 12. C olon cancer screening L AB: Occult Blood, Stool, Guaiac (Collection Date & Time - 12/04/2024) N egative Value Reference Range O ccult Blood, Stool, Guaiac Neg Notes: guaiac negative??13.?Depression screening? Notes: negative screen?? * Procedure Codes: 8 2270 TEST FOR BLOOD, FECES * Preventive Medicine: Counseling: C are goal follow-up plan: C ounseling for abnormal BMI provided?Yes, A paulie Normal BMI Follow-up G cristinaing encouragement to exercise. * Follow Up: 2 Months * * Sign off status: Completed true * Provider: Sascha Lewis MD Date: 0 12/04/2024 Generated for Suzanne caraballo/Ligia/eTfallonsmitting on: 1 06:50 PM EDT History and Physical Notes * HPI (History of Present Illness) Category Sub-Category Detail Notes Category Not es Symptom(s) patient is a 79 yo female here for annual visit with review of recent labs and follow up of chronic issues having some high bp readings at physical therpy/ has been off her bp med as it was too low/ patient does not have cirrhosis but a fattyu liver Depression Screening PHQ-9 Little inte rest or [...] way: Not at all Total Score: 0 Interpretation and Intervention Depression Evy melendrez Findings: Negative Follow-Up for Depression: : review of PH Q-9 found negative result, no follow-up needed SDOH Questions SDOH Questions In the past year have you been worried about losing housing?: No In the past year have you or any family members you live with been unable to get any of the following when it was really needed? Check all that apply:: None Fall Risk History Have you had any falls with injury i n the past year?: No Have you had two or more falls in the st year?: No Communication Needs Communication Needs Does the patient have a hearing impairment: No Does the patient have a vision impairmen t?: Yes If yes, what is the vision impairment?: Glasses Does the patient have a cognition impair ment?: No Examination Category Sub-Category Detail Notes Category Not es General Examination GENERAL APPEARANCE: well dev eloped, well nourished, in no acute distress HEAD: normocephalic, atrau matic EYES: pupils equal, round, reactive to light and accommodation, sclera non-icteric EARS: normal THROAT: clear NECK/THYROID: neck supple, full ra nge of motion, no cervical lymphadenopathy, no bruits HEART: regular rate and rhy thm, S1, S2 normal, no murmurs LUNGS: clear to auscultatio n bilaterally ABDOMEN: [...]
--- OUTSIDE RECORDS SUMMARY | 2025-01-01 05:15 | XMS_ITS ---
Author Organization Christian Lewis MD Address [address] [place], [place] [phone] Care Team Providers Care Ticket Collector Or Usher Name Role Phone Joshua Christian Primary Care Provider [phone] Allergies Allergen (clinical drug ingredient) Drug/Non Drug Allergy documented on EMR Reaction Allergy Type Onset Date Status lisinopril Lisinopril cough Drug Allergy Activ e Reason For Referral [facility] Mass of sinus (R22.0 ) Referral Organization Christian Lewis MD Referring Provider First Name Christian Referring Provider Last Name Joshua Referring Provider Speciality Internal M edicine Referred Provider [facility], [facility] Referred Provider Specialty Otolaryngolo gy General Notes Tori Roth 0 01/11/2025 03:21:56 PM > referral info faxed, Tori Roth 02/23/2025 03:12:34 PM > called and spoke with office being looked into, Tayler Stern 03/08/2025 03:35:40 PM >APPT SCHEDULED AND MARY LOU AWARE. Referral Priority Routine Referral Appointment Date 03/12/2025 REASON FOR VISIT follow up appt / must see go over Ct scan neck Medications Medication SIG (Take, Route, Frequency, Duration) Notes Start Date End Date Status Omeprazole 40 MG 1 capsule Orally Onc e a day Active Vitamin D 2000 UNIT Orally Active Ursodiol 500 MG TAKE 2 TABLETS BY MO UTH EVERY MORNING AND 1 TAB EVERY EVENING 90 for 90 Active Plavix 75 MG 1 tablet Orally Once a day Active Vitamin B12 1000 MCG 1 tablet Orally Onc e a day Active Levothyroxine Sodium 100 MCG TAKE 1 TABL ET BY MOUTH EVERY DAY IN THE MORNING ON EMPTY STOMACH Active Ferrous Sulfate 325 (65 Fe) MG 1 tablet Orally Once a day 02/23/2021 Active Atorvastatin Calcium 20 MG TAKE 1 TABLET BY MOUTH EVERY DAY Active Valsartan-hydroCHLOROthiazid e 160-12.5 MG TAKE 1 TABLET BY MOUTH EVERY DAY for 90 Active Vital Signs Blood pressure systolic 122 mm Hg 01/02/20 25 Blood pressure diastolic 50 mm Hg 025 Height 65.25 in 01/01/2025 Weight 175 lbs 01/01/2025 BMI 28.9 kg/m2 01/01/2025 weight is down 5 pounds [facility] 12-[facility]-24 Encounters Encounter Location Date Provider Diagnosis Christian Lewis MD [address] [place] [address] [place] [phone] 01/01/2025 Christian Lewis Essential hypertension I10 and Localized swelling, mass and lump, head R22.0 Assessments Encounter Date Diagnosis (ICD Code) Assessment Notes Treatment Notes Treatment Clinical Notes Section Notes 01/01/2025 Essential hypertension (ICD-10 - I10) stable, will continue current regiment 01/01/2025 Localized swelling, mass and lump, head (ICD-10 - R22.0) discussed findings of recent CT scan with patient, will try to get to ent. may have to wait for the new ent here Plan Of Treatment Medication Medication Name Sig Start Date Stop Date Notes Valsartan-hydroCHLOROthiazid e 160-12.5 MG TAKE 1 TABLET BY MOUTH EVERY DAY for 90 Treatment Notes Assessment Notes Essential hypertension stable, will cont inue current regiment Localized swelling, mass and lump, head discussed findings of recent CT scan with patient, will try to get to ent. may have to wait for the new ent here Referrals Referral Date Details 01/01/2025 01/01/2025, MRO and Ct report attached, [facility] Next Appt Details Follow Up: 2 Months, Reason: Provider Name:Christian Martin ier, 06/03/2025 07:30:00 AM, [address], [address], [place], [place], [phone], Provider Name:Christian Martin ier, 06/11/2025 09:00:00 AM, [address], [address], [place], [place], [phone], Provider Name:Christian Martin ier, 11/29/2025 07:45:00 AM, [address] [place] [address] Drive, [address], [place], [place], [phone], Provider Name:Christian Martin ier, 12/07/2025 08:30:00 AM, [address] [place] [address], [address], [place], [phone], Progress Notes * Mary Lou CELESTIN SDOB:1945 (79 yo F)Acc No.[id number]:01/01/2025 Patient: Mary Lou GUSTAFSON Provider: Sascha Lewis MD :1945 A ge:79 Y S ex:Female Date:01/01/2025 Address:[address] [place], [place] [phone] Subjective: * Chief Complaints: * f ollow up appt / must see go over Ct scan neck * HPI: S ymptom(s): patient is a 79 yo female here for follow up visit to discuss recent CT scan. * ROS: G eneral/Constitutional: Denies C hills. D enies F atigue. D enies F ever. D enies H eadache. E NT: Denies S ore throat. R espiratory: Denies C ough. D enies S hortness of breath at rest. D enies S hortness of breath with exertion. G astrointestinal: Denies D iarrhea. D enies N ausea. * Medical History: * Surgical History: * Hospitalization/Major Diagno stic Procedure: * Medications: T akingVitamin B12 1000 MCG Tablet 1 tablet Orally Once a day Plavix 75 MG Tablet 1 tablet Orally Once a day Ursodiol 500 MG Tablet TAKE 2 TABLETS BY MOUTH EVERY MORNING AND 1 TAB EVERY EVENING 90 Vitamin D 2000 UNIT Capsule Orally Omeprazole 40 MG Capsule Delayed Release 1 capsule Orally Once a day Ferrous Sulfate 325 (65 Fe) MG Tablet 1 tablet Orally Once a day Levothyroxine Sodium 100 MCG Tablet TAKE 1 TABLET BY MOUTH EVERY DAY IN THE MORNING ON EMPTY STOMACH Atorvastatin Calcium 20 MG Tablet TAKE 1 TABLET BY MOUTH EVERY DAY Valsartan-hydroCHLOROthiazide 160-12.5 MG Tablet TAKE 1 TABLET BY MOUTH EVERY DAY Medication List reviewed and reconciled with the patientTaking Vitamin B12 1000 MCG Tablet 1 tablet Orally Once a day Taking Plavix 75 MG Tablet 1 tablet Orally Once a day Taking Ursodiol 500 MG Tablet TAKE 2 TABLETS BY MOUTH EVERY MORNING AND 1 TAB EVERY EVENING 90 Taking Vitamin D 2000 UNIT Capsule Orally Taking Omeprazole 40 MG Capsule Delayed Release 1 capsule Orally Once a day Taking Ferrous Sulfate 325 (65 Fe) MG Tablet 1 tablet Orally Once a day Taking Levothyroxine Sodium 100 MCG Tablet TAKE 1 TABLET BY MOUTH EVERY DAY IN THE MORNING ON EMPTY STOMACH Taking Atorvastatin Calcium 20 MG Tablet TAKE 1 TABLET BY MOUTH EVERY DAY Taking Valsartan-hydroCHLOROthiazide 160-12.5 MG Tablet TAKE 1 TABLET BY MOUTH EVERY DAY Medication List reviewed and reconciled with the patient * Allergies: L isinopril: coughyes[Allergies Verified] Objective: * Vitals: H t: 65.25, Wt: 175, BMI:28.9, BP:122/50, Wt-k.38. weight is down 5 pounds since 12-04-24. * Examination: G eneral Examination: GENERAL APPEARANCE: n ormal, alert, well hydrated, in no distress. HEAD: n ormocephalic. NOSE: u nable to see to the area that was described on the ct. NECK/THYROID: n o cervical lymphadenopathy. HEART: n o murmurs, rubs, gallops, regular rate and rhythm.? LUNGS: n o wheezes, rales, rhonchi, good air movement, clear to auscultation bilaterally. Assessment: * Assessment: 1. E ssential hypertension - I10 (Primary) 2 . L ocalized swelling, mass and lump, head - R22.0 Plan: * Treatment: 2. L ocalized swelling, mass and lump, head Notes: discussed findings of recent CT scan with patient, will try to get to ent. may have to wait for the new ent here 3. O thers Referral To:[facility] Urgent Referrals [facility] Referrals Otolaryngology Reason:MRO and Ct report attached * Procedure Codes: * Follow Up: 2 Months * * Sign off status: Completed true * Provider: Sascha Lewis MD Date: 0 01/01/2025 Generated for Suzanne caraballo/Ligia/Lexitting on: 1 06:53 PM EDT History and Physical Notes * HPI (History of Present Illness) Category Sub-Category Detail Notes Category Not es Symptom(s) patient is a 79 yo female here for follow up visit to discuss recent CT scan Examination Category Sub-Category Detail Notes Category Not es General Examination GENERAL APPEARANCE: normal, alert, well hydrated, in no distress HEAD: normocephalic NOSE: unable to see to the area that was described on the ct NECK/THYROID: no cervical lymphade nopathy HEART: no murmurs, rubs, ga llops, regular rate and rhythm LUNGS: no wheezes, rales, r honchi, good air movement, clear to auscultation bilaterally Consultation Request Notes Referral Date Referring Provider Referred Provider Not es 01/01/2025 Christian Lewis [facility] Referrals, [facility]gent Referrals MRO and Ct report attached
--- OUTSIDE RECORDS SUMMARY | 2025-01-19 05:00 | XMS_ITS ---
Author Organization Christian Lewis MD Address [address] [place] [phone] Care Team Providers Care General Cargo Clerk Name Role Phone Christian Lewis Primary Care Provider REASON FOR VISIT HDF Immunizations Vaccine Route Administration Date Status Comme nts Influenza High Dose IM Intramuscular 01/19/2025 Administer ed Encounters Encounter Location Date Provider Diagnosis Christian Lewis MD [address] [place] [phone] 01/19/2025 Christian Lewis Encounter for administration of vaccine Z23 Assessments Encounter Date Diagnosis (ICD Code) Assessment Notes Treatment Notes Treatment Clinical Notes Section Notes 01/19/2025 Encounter for administration of vaccine (ICD-10 - Z23) Plan Of Treatment Next Appt Details Provider Name:Christian taylor, 06/03/2025 07:30:00 AM, [address] [place] [address], [address], [phone], Provider Name:Christian taylor, 06/11/2025 09:00:00 AM, [address] [place] [address], [address], [phone], Provider Name:Christian taylor, 11/29/2025 07:45:00 AM, [address], [address], [place], [place], [phone], Provider Name:Christian Martin ier, 12/07/2025 08:30:00 AM, [address], [address], [place], [place], [phone], Progress Notes * Mary Lou CELESTIN SDOB:1945 (79 yo F)Acc No.[id number]:01/19/2025 Progress Note Patient: Mary Lou GUSTAFSON Provider: Sascha Lewis MD :1945 A ge:79 Y S ex:Female Date:01/19/2025 Address:[address] [place], [place] [phone] Subjective: * Chief Complaints: * 1 . HDF. * Medical History: Objective: * Vitals: Assessment: * Assessment: 1. E ncounter for administration of vaccine - Z23 (Primary) Plan: * Treatment: * Immunizations: Influenza High Dose : 0.5 mL (Dose No:1) (Route: Intramuscular) given by Vickie Santos , Office Staff on Left Deltoid * Procedure Codes: 9 0662 FLU VACC PRSV FREE INC ANTIG, G0008 ADMN FLU VAC NO FEE SCHED SAME DAY * * The named appointment provid er may or may not be the originator of this progress note, and it is not deemed complete until electronically signed by the appointment provider. Sign off status: Pending * Provider: Sascha Lewis MD Date: 0 01/19/2025 Generated for Suzanne caraballo/Liiga/Jessicasmitting on: 06:52 PM EDT
--- OUTSIDE RECORDS SUMMARY | 2025-02-02 07:15 | XMS_ITS ---
Author Organization Christian Lewis MD Address [address] [place], [place] [phone] Care Team Providers Care Gas Load Dispatcher Name Role Phone Christian Lewis Primary Care Provider [phone] Allergies Allergen (clinical drug ingredient) Drug/Non Drug Allergy documented on EMR Reaction Allergy Type Onset Date Status lisinopril Lisinopril cough Drug Allergy Activ e REASON FOR VISIT rash on both legs x 1 day Medications Medication SIG (Take, Route, Frequency, Duration) Notes Start Date End Date Status Levothyroxine Sodium 100 MCG TAKE 1 TABL ET BY MOUTH EVERY DAY IN THE MORNING ON EMPTY STOMACH for 90 Active Valsartan-hydroCHLOROthiazid e 160-12.5 MG TAKE 1 TABLET BY MOUTH EVERY DAY for 90 Active Omeprazole 40 MG 1 capsule Orally Onc e a day Active predniSONE 10 MG use as directed Oral ly 4 tabs for 3 days,3tabs for 3 days, 2 tabs for 3 days, and 1 tab for 3 days for 14 days 02/02/2025 Active Atorvastatin Calcium 20 MG TAKE 1 TABLET BY MOUTH EVERY DAY Active Vitamin B12 1000 MCG 1 tablet Orally Onc e a day Active Ferrous Sulfate 325 (65 Fe) MG 1 tablet Orally Once a day 02/23/2021 Active Plavix 75 MG 1 tablet Orally Once a day Active Vitamin D 2000 UNIT Orally Active Vital Signs Blood pressure systolic 132 mm Hg 02/03/20 25 Blood pressure diastolic 64 mm Hg 025 Height 65.25 in 02/02/2025 Weight 182 lbs 02/02/2025 BMI 30.05 kg/m2 02/02/2025 weight is up 7 pounds since 01-01-25 Encounters Encounter Location Date Provider Diagnosis Christian Lewis MD [address] [place] [address] [place] [phone] 02/02/2025 Christian Lewis Eczema L30.9 Assessments Encounter Date Diagnosis (ICD Code) Assessment Notes Treatment Notes Treatment Clinical Notes Section Notes 02/02/2025 Eczema (ICD-10 - L30.9) patient vrbalized understanding of medication and directions for use Plan Of Treatment Medication Medication Name Sig Start Date Stop Date Notes predniSONE 10 MG use as directed Oral ly 4 tabs for 3 days,3tabs for 3 days, 2 tabs for 3 days, and 1 tab for 3 days for 14 days 02/02/2025 Treatment Notes Assessment Notes Eczema patient vrbalized un derstanding of medication and directions for use Next Appt Details Provider Name:Christian taylor, 06/03/2025 07:30:00 AM, [address] [place] [address], [address], [phone], Provider Name:Christian taylor, 06/11/2025 09:00:00 AM, [address] [place] [address], [phone], Provider Name:Christian taylor, 11/29/2025 07:45:00 AM, [address] [place] [address], [phone], Provider Name:Christian taylor, 12/07/2025 08:30:00 AM, [address] [place] [address], [phone], Progress Notes * Mary Lou CELESTIN SDOB:1945 (79 yo F)Acc No.[id number]:02/02/2025 Progress Notes Patient: Mary Lou GUSTAFSON Provider: Sascha Lewis MD :1945 A ge:79 Y S ex:Female Date:02/02/2025 Address:[address] [place], [place] [phone] Subjective: * Chief Complaints: * R andrea on both legs x 1 day * HPI: S ymptom(s): patient is a 79 yo female here with complaint she had same rash in the past and was given prednisone and it resolved.rash has returned and is very itchy. * ROS: G eneral/Constitutional: Denies C hills. D enies F atigue. D enies F ever. D enies H eadache. E NT: Denies S ore throat. R espiratory: Armandoies Derrell ough. Saurabh enkaitlyn S hortness of breath at rest. G astrointestinal: Denies D iarrhea. D enies N ausea. * Medical History: * Surgical History: * Hospitalization/Major Diagno stic Procedure: * Medications: T akingVitamin B12 1000 MCG Tablet 1 tablet Orally Once a day Plavix 75 MG Tablet 1 tablet Orally Once a day Vitamin D 2000 UNIT Capsule Orally Ferrous Sulfate 325 (65 Fe) MG Tablet 1 tablet Orally Once a day Atorvastatin Calcium 20 MG Tablet TAKE 1 TABLET BY MOUTH EVERY DAY Valsartan-hydroCHLOROthiazide 160-12.5 MG Tablet TAKE 1 TABLET BY MOUTH EVERY DAY Levothyroxine Sodium 100 MCG Tablet TAKE 1 TABLET BY MOUTH EVERY DAY IN THE MORNING ON EMPTY STOMACH Omeprazole 40 MG Capsule Delayed Release 1 capsule Orally Once a day Taking Vitamin B12 1000 MCG Tablet 1 tablet Orally Once a day Taking Plavix 75 MG Tablet 1 tablet Orally Once a day Taking Vitamin D 2000 UNIT Capsule Orally Taking Ferrous Sulfate 325 (65 Fe) MG Tablet 1 tablet Orally Once a day Taking Atorvastatin Calcium 20 MG Tablet TAKE 1 TABLET BY MOUTH EVERY DAY Taking Valsartan-hydroCHLOROthiazide 160-12.5 MG Tablet TAKE 1 TABLET BY MOUTH EVERY DAY Taking Levothyroxine Sodium 100 MCG Tablet TAKE 1 TABLET BY MOUTH EVERY DAY IN THE MORNING ON EMPTY STOMACH Taking Omeprazole 40 MG Capsule Delayed Release 1 capsule Orally Once a day DiscontinuedUrsodiol 500 MG Tablet TAKE 2 TABLETS BY MOUTH EVERY MORNING AND 1 TABLET EVERY EVENING Medication List reviewed and reconciled with the patientDiscontinued Ursodiol 500 MG Tablet TAKE 2 TABLETS BY MOUTH EVERY MORNING AND 1 TABLET EVERY EVENING Medication List reviewed and reconciled with the patient * Allergies: L isinopril: coughyes[Allergies Verified] Objective: * Vitals: H t: 65.25, Wt: 182, BMI:30.05, BP:132/64, Wt-k.55. weight is up 7 pounds since 01-01-25. * Examination: G eneral Examination: GENERAL APPEARANCE: a lert, well hydrated, in no distress.? SKIN: a bnormal with multiple erythematous lesion on legs and feet about 5 mm in diameter going up retirement to knee. Assessment: * Assessment: 1. E czema - L30.9 (Primary) Plan: * Treatment: * Procedure Codes: * * Sign off status: Completed true * Provider: Sascha Lewis MD Date: 0 02/02/2025 Generated for Suzanne caraballo/Ligia/Jessicasmitting on: 1 06:55 PM EDT History and Physical Notes * HPI (History of Present Illness) Category Sub-Category Detail Notes Category Not es Symptom(s) patient is a 79 yo female here with complaint she had same rash in the past and was given prednisone and it resolved.rash has returned and is very itchy Examination Category Sub-Category Detail Notes Category Not es General Examination GENERAL APPEARANCE: alert, w ell hydrated, in no distress SKIN: abnormal with multip le erythematous lesion on legs and feet about 5 mm in diameter going up retirement to knee
--- OUTSIDE RECORDS SUMMARY | 2025-02-25 10:33 | XMS_ITS ---
Author Organization Christian Lewis MD Address [address] [place] [phone] Care Team Providers Care Utility Service Worker Name Role Phone Christian Lewis Primary Care Provider REASON FOR VISIT RF Valsartan/HCTZ Medications Medication SIG (Take, Route, Frequency, Duration) Notes Start Date End Date Status Valsartan-hydroCHLOROthiaz malcolm 160-12.5 MG TAKE 1 TABLET BY MOUTH EVERY DAY for 90 Active Encounters Encounter Location Date Provider Diagnosis Christian Lewis MD [address] [place] [phone] 02/25/2025 Christian Lewis Essential hypertension I10 Assessments Encounter Date Diagnosis (ICD Code) Assessment Notes Treatment Notes Treatment Clinical Notes Section Notes 02/25/2025 Essential hypertension (ICD-10 - I10) Plan Of Treatment Medication Medication Name Sig Start Date Stop Date Notes Valsartan-hydroCHLOROthiazid e 160-12.5 MG TAKE 1 TABLET BY MOUTH EVERY DAY for 90 Next Appt Details Provider Name:Christian taylor, 06/03/2025 07:30:00 AM, [address], [address] [facility], [place], [place], [phone], Provider Name:Christian taylor, 06/11/2025 09:00:00 AM, [address] [facility], [address], [place], [place], [phone], Provider Name:Christian Martin brandon, 11/29/2025 07:45:00 AM, [address] [place] [address], [address], [place], [place], [phone], Provider Name:Christian Martin brandon, 12/07/2025 08:30:00 AM, [address] [place] [address], Suite [facility], [place], [place], [phone], Progress Notes * Mary Lou CELESTIN SDOB:1945 (79 yo F)Acc No.[id number]:02/25/2025 Patient: Mary Lou GUSTAFSON :1945 A ge:79 Y S ex:Female Address:[address] [place] [address] * Refills Refill Valsartan-hydroCHLOROthiazide Tablet, 160-12.5 MG, 90 Tablet, TAKE 1 TABLET BY MOUTH EVERY DAY, 90, Refills=4 * true * Date: Generated for Suzanne caraballo/Ligia/Jessicasmitting on: 06:50 PM EDT
--- OUTSIDE RECORDS SUMMARY | 2025-03-05 06:00 | XMS_ITS ---
Author Organization Christian Lewis MD Address [address] [place], [place] [id number] Care Team Providers Care Bailiff Name Role Phone Christian Lewis Primary Care Provider [phone] Allergies Allergen (clinical drug ingredient) Drug/Non Drug Allergy documented on EMR Reaction Allergy Type Onset Date Status lisinopril Lisinopril cough Drug Allergy Activ e REASON FOR VISIT 2 week Medications Medication SIG (Take, Route, Frequency, Duration) Notes Start Date End Date Status Ferrous Sulfate 325 (65 Fe) MG 1 tablet Orally Once a day 02/23/2021 Active Levothyroxine Sodium 100 MCG TAKE 1 TABL ET BY MOUTH EVERY DAY IN THE MORNING ON EMPTY STOMACH for 90 Active Atorvastatin Calcium 20 MG TAKE 1 TABLET BY MOUTH EVERY DAY Active Omeprazole 40 MG 1 capsule Orally Onc e a day Active predniSONE 10 MG use as directed Oral ly 4 tabs for 3 days,3tabs for 3 days, 2 tabs for 3 days, and 1 tab for 3 days for 14 days 02/02/2025 Active Vitamin D 2000 UNIT Orally Active Valsartan-hydroCHLOROthiazid e 160-12.5 MG TAKE 1 TABLET BY MOUTH EVERY DAY Active Plavix 75 MG 1 tablet Orally Once a day Active Vitamin B12 1000 MCG 1 tablet Orally Onc e a day Active Vital Signs Blood pressure systolic 132 mm Hg 03/05/20 25 Blood pressure diastolic 60 mm Hg 025 Height 65.25 in 03/05/2025 Weight 188 lbs 03/05/2025 BMI 31.04 kg/m2 03/05/2025 weight is up 6 pounds since 02-02-25 Encounters Encounter Location Date Provider Diagnosis Christian Lewis MD [address] [place] [phone] 03/05/2025 Christian Lewis Essential hypertension I10 and Rash R21 Assessments Encounter Date Diagnosis (ICD Code) Assessment Notes Treatment Notes Treatment Clinical Notes Section Notes 03/05/2025 Essential hypertension (ICD-10 - I10) doing well on meds 03/05/2025 Rash (ICD-10 - R21) has resolved completely on prednisone after 3 days Plan Of Treatment Medication Medication Name Sig Start Date Stop Date Notes Valsartan-hydroCHLOROthiazid e 160-12.5 MG TAKE 1 TABLET BY MOUTH EVERY DAY Treatment Notes Assessment Notes Essential hypertension doing well on med s Rash has resolved complet scott on prednisone after 3 days Next Appt Details Provider Name:Christian taylor, 06/03/2025 07:30:00 AM, [address] [place] [address], [address], [phone], Provider Name:Christian taylor, 06/11/2025 09:00:00 AM, [address] [place] [address], [address], [phone], Provider Name:Christian taylor, 11/29/2025 07:45:00 AM, [address] [place] [address], [address], [phone], Provider Name:Christian taylor, 12/07/2025 08:30:00 AM, [address] [place] [address], [phone], Progress Notes * Mary Lou CELESTIN SDOB:1945 (79 yo F)Acc No.[id number]:03/05/2025 Progress Notes Patient: Mary Lou GUSTAFSON Provider: Sascha Lewis MD :1945 A ge:79 Y S ex:Female Date:03/05/2025 Address:[address] [place], [place] [phone] Subjective: * Chief Complaints: * 2 week * HPI: S ymptom(s): patient is a 79 yo female here for 2 week follow up visit/ legs got better in 3 days. * ROS: G eneral/Constitutional: Denies C hills. [...] Release 1 capsule Orally Once a day predniSONE 10 MG Tablet use as directed Orally 4 tabs for 3 days,3tabs for 3 days, 2 tabs for 3 days, and 1 tab for 3 days Valsartan-hydroCHLOROthiazide 160-12.5 MG Tablet TAKE 1 TABLET [...] 1 capsule Orally Once a day Taking predniSONE 10 MG Tablet use as directed Orally 4 tabs for 3 days,3tabs for 3 days, 2 tabs for 3 days, and 1 tab for 3 days Taking Valsartan-hydroCHLOROthiazide 160-12.5 MG Tablet TAKE 1 TABLET BY MOUTH EVERY DAY Medication List reviewed and reconciled with the patient * Allergies: L isinopril: coughyes[Allergies Verified] Objective: * Vitals: H t: 65.25, Wt: 188, BMI:31.04, BP:132/60, Wt-k.28. weight is up 6 pounds since 02-02-25. * Examination: G eneral Examination: GENERAL APPEARANCE: a lert, well hydrated, in no distress.? HEAD: n ormocephalic. SKIN: g ood turgor rash on legs has resolved completely. HEART: r egular rate and rhythm, no murmurs, rubs, gallops.? LUNGS: n o wheezes, rales, rhonchi, good air movement, clear to auscultation bilaterally. Assessment: * Assessment: 1. E ssential hypertension - I10 (Primary) 2 . R andrea - R21 Plan: * Treatment: 2. R andrea Notes: has resolved completely on prednisone after 3 days * Procedure Codes: * * Sign off status: Completed true * Provider: Sascha Lewis MD Date: 1 Generated for Suzanne caraballo/Ligia/Lexitting on: 06:53 PM EDT History and Physical Notes * HPI (History of Present Illness) Category Sub-Category Detail Notes Category Not es Symptom(s) patient is a 79 yo female here for 2 week follow up visit/ legs got better in 3 days. Examination Category Sub-Category Detail Notes Category Not es General Examination GENERAL APPEARANCE: alert, w ell hydrated, in no distress HEAD: normocephalic HEART: regular rate and rhy thm, no murmurs, rubs, gallops LUNGS: no wheezes, rales, r honchi, good air movement, clear to auscultation bilaterally SKIN: good turgor rash on legs has resolved completely
[2025-03-08 15:03] VITALS: BP 124/60; PULSE 81; BMI 31.3
--- NOTE | 2025-03-08 15:03 | A.OFFVIS_ITS ---
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 Required: No Accompanied by: Self / Same As Patient Allergies No Known Allergies (No Known Allergies*) Allergy (Verified 03/08/25 15:05) Medication List - Last Reconciled 03/08/25 by Julian Henao MD atorvastatin 20 mg PO BEDTIME cholecalciferol (vitamin D3) (Vitamin D3) 50 mcg PO DAILY clopidogrel 75 mg PO DAILY cyanocobalamin (vitamin B-12) (Vitamin B-12) 1,000 mcg PO DAILY ferrous sulfate 324 mg PO DAILY levothyroxine 100 mcg PO DAILY@0600 omeprazole 40 mg PO BID@0630,1630 syringe with needle (Syringe) As directed ursodiol 1,000 mg PO DAILY HPI Comments Details: Mary Lou returns for follow-up after TAVR. She has a history of severe aortic stenosis and underwent TAVR in September 2024. Overall, she states she is feeling good. No new cardiac concerns. Getting along fine. She also has a history of severe anemia as well as low platelets and that seems to be stable There is a history of unconscious episode around 2007 and at that time she was diagnosed with brain aneurysm and underwent clipping at [place]. No further information available. [facility] Medical History (Updated 03/08/25 @ 16:03 by Julian Henao MD) Aortic stenosis Obesity Hypothyroid Fatty liver History of Ennis's esophagus GERD (gastroesophageal reflux disease) Elevated cholesterol HTN (hypertension) Surgical History S/P TAVR (transcatheter aortic valve replacement) Hx of brain surgery History of esophagogastroduodenoscopy (EGD) Hx of colonoscopy History of [place] fundoplication Family History Father Heart problem Paternal Grandmother Breast cancer Maternal Grandfather Breast cancer Social History Household Members: None Housing: House Are you a primary childbirth and infant care teacher to a significant other at home: No Do you presently have visiting nurse or other home services: No Alcohol intake: current Alcohol intake frequency: a few times a month Patient Tobacco Use Status: Former Tobacco user Tobacco use type: Cigarette Second Hand Smoke Exposure: No service: No Current occupational status: retired Gender identity: Female Review of Systems Const Denies daytime sleepiness, Denies difficulty sleeping, Denies snoring, Denies stops breathing during sleep and Denies weakness Card Denies chest pain, Denies rapid heart rate, Denies irregular heart rhythm, Denies claudication, Denies leg edema, Denies lightheadedness, Denies palpitations, Denies dyspnea, Denies dyspnea on exertion, Denies orthopnea, Denies paroxysmal nocturnal dyspnea and Denies slow heart rate Resp Denies cough, Denies dyspnea, Denies dyspnea on exertion and Denies snoring GI Reports no additional complaints, Denies hematochezia, Denies change in stool character and Denies dyspepsia Musc Denies abnormal gait, Denies muscle weakness and Denies numbness Neuro Denies abnormal gait, Denies numbness and Denies weakness Endo Denies palpitations Physical Exam Vital Signs: Last Vital Signs Pulse 81 03/08/25 15:03 BP 124/60 03/08/25 15:03 BMI result Body Mass Index 31.3 Assessment & Plan Assessment & Plan (1) S/P TAVR (transcatheter aortic valve replacement): Code(s): Z95.2 - Presence of prosthetic heart valve Category: Surgical Plan: In the last echocardiogram, normally functioning bioprosthetic aortic valve with a mean gradient of 9 mm Hg. We will follow this next year with an echocardiogram. She remains on Plavix. Continue that. As there is thrombocytopenia, we will need to follow for any bleeding issues. In fact endocarditis prophylaxis per protocol. (2) Atherosclerotic cardiovascular disease: Code(s): I25.10 - Atherosclerotic heart disease of [place] coronary artery without angina pectoris Category: Medical Plan: Cardiac catheterization- severe two-vessel disease involving the LAD/RCA. She has got no clinical angina. Continue medical management. On Plavix/statins. Cholesterol is well controlled. Plan Discussion Notes I discussed with the patient that her aortic valve replacement appears to be functioning well, and no immediate concerns were noted. We agreed on a follow-up appointment in six months to reassess her condition and ensure continued improvement. Patient was informed and verbally consented to the use of an ambient scribe for clinic note documentation during this visit. Orders: Orders CA echo transthoracic complete 6 Months Z95.2 - Presence of prosthetic heart valve Patient Instructions: - Continue taking medications as prescribed. - Return for a follow-up appointment in six months. Coding Level of Care Code Est Pt Level 4 (31158) Complex EM visit Add On G2211 Diagnoses S/P TAVR (transcatheter aortic valve replacement) Z95.2 Atherosclerotic cardiovascular disease I25.10
--- OUTSIDE RECORDS SUMMARY | 2025-03-08 18:51 | XMS_ITS | Patient Health Record ---
Author Organization [facility] Address [address] [place] [address] Care Team Providers Care Senior Ux Designer Name Role Phone Joshua KNIGHT, Christian Primary Care Provider Gilberto Hollingsworth [phone] Allergies Allergen (clinical drug ingredient) Drug/Non Drug Allergy documented on EMR Reaction Allergy Type Onset Date Status lisinopril Lisinopril cough Drug Allergy Activ e Results Component Value Reference Range Notes Ferritin Reviewed date:07/05/2024 03:39:42 PM Interpretation: Performing Lab:[address] [address] Notes/Report: Ferritin 41 10-250 ng/mL Pathology Reviewed date:07/01/2024 07:47:55 PM Interpretation: Performing Lab:[address] [address] Notes/Report: Complete Blood Count Auto Di ff (Not yet reviewed by provider) Interpretation: Performing Lab:[address] [address] Notes/Report: White Blood Count 3.5 4.8-10.8 X10*3/uL [...] PROFILE Reviewed date:07/05/2024 03:39:35 PM Interpretation: Performing Lab:[facility], [address] [place] [id number] Notes/Report: Iron 41 30-160 mcg/dL Total Iron Binding Capacity 312 228-428 mcg/d L Percent Iron Saturation 13 15-50 % Unsaturated Iron Binding 271 US abdomen comp w elastograp hy Reviewed date:08/22/2024 04:09:38 PM Interpretation: Performing Lab: Notes/Report: [address] [address] Ultrasound Report Signed Patient: Mary Lou Celestin MR#: [id number] : 1945 Acct:[id number] Age/Sex: 79 / F ADM Date: 08/05/24 Loc: HO.US Attending Dr: Gilberto Hernandez MD Ordering Physician: Gilberto Hernandez MD Date of Service: 08/05/24 Procedure(s): US abdomen comp w elastography Accession Number(s): [id number] cc: Christian Lewis MD; Gilberto Hernandez MD [...] 08/06/24 1231 DD/ 0900 TD/TT: 08/05/24 0945 Blind Hooker: US duplex arterial venous co mp Reviewed date:08/22/2024 04:10:36 PM Interpretation: Performing Lab: Notes/Report: [address] [address] Ultrasound Report Signed Patient: Mary Lou Celestin MR#: [id number] : 1945 Acct:[id number] Age/Sex: 79 / F ADM Date: 08/05/24 Loc: HO.US Attending Dr: Gilberto Hernadnez MD Ordering Physician: Gilberto Hernandez MD Date of Service: 08/05/24 Procedure(s): US duplex arterial venous comp Accession Number(s): [id number] cc: Christian Lewis MD; Gilberto Hernandez MD [...] 08/06/24 1231 DD/ 0900 TD/TT: 08/05/24 0945 Blind Hooker: Reason For Referral No Information Medications Medication SIG (Take, Route, Frequency, Duration) Notes Start Date End Date Status Ferrous Sulfate 324 (65 Fe) MG TAKE 1 TABLET BY MOUTH EVERY DAY Oral; Duration: 30 Days Active Cyanocobalamin 1000 MCG/ML PLEASE SEE AT TACHED FOR DETAILED DIRECTIONS Injection; Duration: 84 Days Active Ursodiol 500 MG TAKE 2 TABLETS BY MO UTH EVERY MORNING AND TAKE 1 TABLET BY MOUTH EVERY EVENING; Duration: 90 Active Furosemide 20 MG TAKE 1 TABLET BY LATIA TH EVERY DAY Oral; Duration: 30 Days Active Atorvastatin Calcium 20 MG 1 tablet Oral ly Once a day Active Vitamin D 2000 UNIT 1 tablet Orally Once a day Active Valsartan-hydroCHLOROthiazid e 160-12.5 MG 1 tablet Orally Once a day Active Levothyroxine Sodium 100 MCG 1 tablet in the morning on an empty stomach Orally Once a day Active Iron (Ferrous Sulfate) 325 (65 Fe) MG 1 tablet Orally Twice a day; Duration: 30 days Active Clopidogrel Bisulfate 75 MG 1 tablet Ora lly Once a day Active Omeprazole 40 MG TAKE 1 CAPSULE BY MO UTH TWICE A DAY; Duration: 90 Active Cefuroxime Axetil 500 MG TAKE 1 TABLET B Y MOUTH TWICE A DAY Oral; Duration: 4 Days Active Immunizations Vaccine Route Administration Date Status [...] Notes Problem Gastro-esophageal reflux disease without esophagitis (290142006) Gastro-esophageal reflux disease without esophagitis (K21.9) Active confirmed Problem Screening for malignant neoplasm of colon (418195002) Encounter for screening for malignant neoplasm of colon (Z12.11) Active confirmed Problem History of adenomatous polyp of colon (235204645) History of adenomatous polyp of colon (Z86.010) Active confirmed Problem History of polyp of colon (situation) (081876086) Personal history of colonic polyps (Z86.010) Active confirmed Problem Anemia due to chronic blood loss (disorder) (334486512) Iron deficiency anemia secondary to blood loss (chronic) (D50.0) Active confirmed Problem Ennis's esophagus (516650304) 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) Active confirmed Problem Diverticular disease of colon (843260241) Diverticulosis of large intestine without perforation or abscess without bleeding (K57.30) Active confirmed Problem Cirrhosis of liver (69263427) Other cirrhosis of liver (K74.69) Active confirmed Problem Screening for malignant neoplasm of rectum (564449832) Encounter for screening for malignant neoplasm of rectum (Z12.12) Active confirmed Problem Duodenitis (57338319) Duodenitis (K29.80) Active confirmed Problem Gastroesophageal reflux disease (864797579) Gastroesophageal reflux disease (K21.9) Active confirmed Problem Iron deficiency anemia (96509093) Iron deficiency anemia (D50.9) Active confirmed Problem Gastroesophageal reflux disease without esophagitis (387437919) Gastroesophageal reflux disease without esophagitis (K21.9) Active confirmed Problem Elevated liver enzymes level (667980352) Elevated liver enzymes (R74.8) Active confirmed Problem Ennis's esophagus (763095406) Barretts esophagus without dysplasia (K22.70) Active confirmed Problem Fatty liver (416024187) Fatty liver (K76.0) Active confirmed Problem Gastric polyp (13352050) Gastric polyp (K31.7) Active confirmed Problem Benign neoplasm of stomach (56052640) Gastric polyps (K31.7) Active confirmed Problem Anemia (052443620) Anemia (D64.9) Active confir med Problem Benign neoplasm of small intestine (70274443) 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 Problem Serum alpha-fetoprotein level elevated (676934261) Elevated alpha fetoprotein (R77.2) Active confirmed Problem Gastritis (4565307) Gastritis (K29.70) Active c onfirmed Problem Iron deficiency anemia (31106067) Iron deficiency anemia, unspecified iron deficiency anemia type (D50.9) Active confirmed Problem Ennis esophagus (469102970) 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) Active confirmed Problem Barretts esophagus with low grade dysplasia (0587011312075662) Barretts esophagus with low grade dysplasia (K22.710) Active confirmed Problem Hepatic fibrosis (disorder) (41281191) Liver fibrosis (K74.0) Active confirmed Problem Raised antinuclear antibody (682917134) Positive MANDY (antinuclear antibody) (R76.8) Active confirmed Problem Hepatic fibrosis (disorder) (71979495) Liver fibrosis (K74.00) Active confirmed Vital Signs Temperature 98.6 degrees Fahrenheit 02/02/2025 Blood pressure diastolic 01 mm Hg 02/02/2025 Height 65.25 in 02/02/2025 Blood pressure systolic 001 mm Hg 02/02/2025 Weight 182.2 lbs 02/02/2025 BMI 30.08 kg/m2 02/02/2025 Encounters Encounter Location Date Provider Diagnosis [facility] Inpatient [address] [place] [address] [id number] 06/25/2024 Gilberto Hernandez [facility] [address] [place] [phone] 07/01/2024 Gilberto Hernandez Barretts esophagus without dysplasia K22.70 ; Other cirrhosis of liver K74.69 ; Fatty liver K76.0 ; Iron deficiency anemia, unspecified iron deficiency anemia type D50.9 and Duodenal adenoma D13.2 [facility] [address] [place] [phone] 02/02/2025 Gilberto Hernandez Barretts esophagus without dysplasia K22.70 ; Other cirrhosis of liver K74.69 ; Iron deficiency anemia, unspecified iron deficiency anemia type D50.9 ; Duodenal adenoma D13.2 ; Personal history of colonic polyps Z86.010 and Gastroesophageal reflux disease K21.[address] [facility] [address] [place] [phone] 03/17/2024 Gilberto Hernandez [facility] [address] [place] [phone] 07/21/2024 Gilberto Hernandez Anemia D64.[address] [facility] [address] [place] [phone] 08/12/2024 Gilberto Hernandez Assessments Encounter Date Diagnosis (ICD Code) Assessment Notes Treatment Notes Treatment Clinical Notes Section Notes 07/01/2024 Other cirrhosis of liver (ICD-10 - K74.69) 07/01/2024 Barretts esophagus without dysplasia (ICD-10 - K22.70) 02/02/2025 Other cirrhosis of liver (ICD-10 - K74.69) You can stop the Ursodiol and we will follow the liver tests Overall, Mary Lou appears quite well considering all of her medical issues and the recent diagnosis of her CLL. Her TAVR and stabilization of her hemoglobin have greatly helped her to feel better. Her liver disease remains stable. She does not show any signs of decompensation at the present time such as jaundice or ascites. At this point I advised her that I think it would not be unreasonable she stop the ursodiol if it is becoming an economic burden for her. At this point given that she already has cirrhosis I do not think stopping the ursodiol would be deleterious to her health. She will continue to have periodic LFTs and certainly if we see any sign of worsening we could always have her resume it. However, I do not think that will be the case. 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 At this point, I advised her that I think trying to remove it could be more risky than any benefit to be gained by it. She is currently on a blood thinner, has some relative thrombocytopenia, and has other comorbidities. Therefore I do not think she would tolerate any type of complication such as postpolypectomy bleeding or any other complication that might ensue. I also advised her that I do not think any further colonoscopies would be indicated in her given her age and comorbidities. At this point, if things remain stable I will plan to see her in about 6 months for a follow-up office visit. I did advise her to certainly call me in the interim if she has any problems or questions I can be of assistance with. Mary Lou was very comfortable with this plan. Thank you again for allowing me to participate in Josee's care. I shall continue to keep you advised of her progress. 02/02/2025 Barretts esophagus without dysplasia (ICD-10 - K22.70) Overall, Mary Lou appears quite well considering all of her medical issues and the recent diagnosis of her CLL. Her TAVR and stabilization of her hemoglobin have greatly helped her to feel better. Her liver disease remains stable. She does not show any signs of decompensation at the present time such as jaundice or ascites. At this point I advised her that I think it would not be unreasonable she stop the ursodiol if it is becoming an economic burden for her. At this point given that she already has cirrhosis I do not think stopping the ursodiol would be deleterious to her health. She will continue to have periodic LFTs and certainly if we see any sign of worsening we could always have her resume it. However, I do not think that will be the case. 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 At this point, I advised her that I think trying to remove it could be more risky than any benefit to be gained by it. She is currently on a blood thinner, has some relative thrombocytopenia, and has other comorbidities. Therefore I do not think she would tolerate any type of complication such as postpolypectomy bleeding or any other complication that might ensue. I also advised her that I do not think any further colonoscopies would be indicated in her given her age and comorbidities. At this point, if things remain stable I will plan to see her in about 6 months for a follow-up office visit. I did advise her to certainly call me in the interim if she has any problems or questions I can be of assistance with. Mary Lou was very comfortable with this plan. Thank you again for allowing me to participate in Jsoee's care. I shall continue to keep you advised of her progress. 07/21/2024 Anemia (ICD-10 - D64.9) 07/01/2024 Fatty liver (ICD-10 - K76.0) 02/02/2025 Iron deficiency anemia, unspecified iron deficiency anemia type (ICD-10 - D50.9) Your blood counts can be followed by Dr. Olivares Overall, Mary Lou appears quite well considering all of her medical issues and the recent diagnosis of her CLL. Her TAVR and stabilization of her hemoglobin have greatly helped her to feel better. Her liver disease remains stable. She does not show any signs of decompensation at the present time such as jaundice or ascites. At this point I advised her that I think it would not be unreasonable she stop the ursodiol if it is becoming an economic burden for her. At this point given that she already has cirrhosis I do not think stopping the ursodiol would be deleterious to her health. She will continue to have periodic LFTs and certainly if we see any sign of worsening we could always have her resume it. However, I do not think that will be the case. 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 At this point, I advised her that I think trying to remove it could be more risky than any benefit to be gained by it. She is currently on a blood thinner, has some relative thrombocytopenia, and has other comorbidities. Therefore I do not think she would tolerate any type of complication such as postpolypectomy bleeding or any other complication that might ensue. I also advised her that I do not think any further colonoscopies would be indicated in her given her age and comorbidities. At this point, if things remain stable I will plan to see her in about 6 months for a follow-up office visit. I did advise her to certainly call me in the interim if she has any problems or questions I can be of assistance with. Mary Lou was very comfortable with this plan. Thank you again for allowing me to participate in Josee's care. I shall continue to keep you advised of her progress. 07/01/2024 Iron deficiency anemia, unspecified iron deficiency anemia type (ICD-10 - D50.9) Start taking the oral Iron twice a day with a stool softener at least once every day. Increase the stool softener to twice a day if you're becoming more constipated on the Iron. Continue the B12 shots. We can always arrange for an Iron IV infusion if need be. 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 Her TAVR and stabilization of her hemoglobin have greatly helped her to feel better. Her liver disease remains stable. She does not show any signs of decompensation at the present time such as jaundice or ascites. At this point I advised her that I think it would not be unreasonable she stop the ursodiol if it is becoming an economic burden for her. At this point given that she already has cirrhosis I do not think stopping the ursodiol would be deleterious to her health. She will continue to have periodic LFTs and certainly if we see any sign of worsening we could always have her resume it. However, I do not think that will be the case. 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 At this point, I advised her that I think trying to remove it could be more risky than any benefit to be gained by it. She is currently on a blood thinner, has some relative thrombocytopenia, and has other comorbidities. Therefore I do not think she would tolerate any type of complication such as postpolypectomy bleeding or any other complication that might ensue. I also advised her that I do not think any further colonoscopies would be indicated in her given her age and comorbidities. At this point, if things remain stable I will plan to see her in about 6 months for a follow-up office visit. I did advise her to certainly call me in the interim if she has any problems or questions I can be of assistance with. Mary Lou was very comfortable with this plan. Thank you again for allowing me to participate in Josee's care. I shall continue to keep you advised of her progress. 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 Her TAVR and stabilization of her hemoglobin have greatly helped her to feel better. Her liver disease remains stable. She does not show any signs of decompensation at the present time such as jaundice or ascites. At this point I advised her that I think it would not be unreasonable she stop the ursodiol if it is becoming an economic burden for her. At this point given that she already has cirrhosis I do not think stopping the ursodiol would be deleterious to her health. She will continue to have periodic LFTs and certainly if we see any sign of worsening we could always have her resume it. However, I do not think that will be the case. 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 At this point, I advised her that I think trying to remove it could be more risky than any benefit to be gained by it. She is currently on a blood thinner, has some relative thrombocytopenia, and has other comorbidities. Therefore I do not think she would tolerate any type of complication such as postpolypectomy bleeding or any other complication that might ensue. I also advised her that I do not think any further colonoscopies would be indicated in her given her age and comorbidities. At this point, if things remain stable I will plan to see her in about 6 months for a follow-up office visit. I did advise her to certainly call me in the interim if she has any problems or questions I can be of assistance with. Mary Lou was very comfortable with this plan. Thank you again for allowing me to participate in Josee's care. I shall continue to keep you advised of her progress. 02/02/2025 Gastroesophageal reflux disease (ICD-10 - K21.9) Overall, Mary Lou appears quite well considering all of her medical issues and the recent diagnosis of her CLL. Her TAVR and stabilization of her hemoglobin have greatly helped her to feel better. Her liver disease remains stable. She does not show any signs of decompensation at the present time such as jaundice or ascites. At this point I advised her that I think it would not be unreasonable she stop the ursodiol if it is becoming an economic burden for her. At this point given that she already has cirrhosis I do not think stopping the ursodiol would be deleterious to her health. She will continue to have periodic LFTs and certainly if we see any sign of worsening we could always have her resume it. However, I do not think that will be the case. 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 At this point, I advised her that I think trying to remove it could be more risky than any benefit to be gained by it. She is currently on a blood thinner, has some relative thrombocytopenia, and has other comorbidities. Therefore I do not think she would tolerate any type of complication such as postpolypectomy bleeding or any other complication that might ensue. I also advised her that I do not think any further colonoscopies would be indicated in her given her age and comorbidities. At this point, if things remain stable I will plan to see her in about 6 months for a follow-up office visit. I did advise her to certainly call me in the interim if she has any problems or questions I can be of assistance with. Mary Lou was very comfortable with this plan. Thank you again for allowing me to participate in Josee's care. I shall continue to keep you advised of her progress. Plan Of Treatment Pending Test Test Name Order Date Hemoccult Cards (Non-Screening) 03/14/20 21 LIVER PROFILE 03/27/2022 LIVER PROFILE 08/10/2018 LIVER [...] Name:Gilberto Hernandez , 09/02/2025 09:00:00 AM, [address], [address], [place], [address], Insurance Providers Payer Name Payer Address Payer Phone Subscriber Number Group Number Insured Name Patient Relationship to Insured Coverage Start Date Coverage End Date [facility] [address] [facility] [place] [phone] [id number] MARY LOU CELESTIN Self - patient is the insured Medical (General) History Medical History History ICD Code GERD with Ennis's esophagu s-areas of high and low grade dysplasia seen in Fall of 2009-[place] [facility] [place] Ferrer for ablation Rx of the Ennis's-most recent Rx was 01/2012-biopsies in 11/2011 showed the Ennis's, but no dysplasia Hypothyroidism HTN Hyperlipidemia Tubular adenomas removed from colon in and 2011 Denies [place],DM,CVA,Lung disease,renal dise ase Brain aneurysm with Agram and clipping i n 12/2007 Duodenal tubular adenoma removed in 2009 . Most recent EGD in [facility] 09/2012--Bx from 35 to 27 cm all neg for Ennis's esophagus nor dysplasia-same HH noted EGD 04/2013 with me at [facility]-- small areas of Ennis's mucosa, but no [...] near the ileocecal valve that was removed TAVR 09/[address] Mann CLL diagnosed in 2024--followed by Dr. Saurabh jeter Surgical History Surgery Date(Month/Year) Cerebral aneursym clipping via intervent ional radiology Shoulder surgery Hysterectomy Knee surgery Yan fundoplication in 1995--Dr. Reece davis
--- OUTSIDE RECORDS SUMMARY | 2025-03-08 18:51 | XMS_ITS | Clinical Summary ---
Author Organization [facility] Address [address] [place] [address] Care Team Providers Care Education Spec Name Role Phone Unavailable Primary Care Provider Unavailabl e Social History Tobacco Use Types Packs/Day Years Used Date Smoking Tobacco: Never Assessed Comments Unknown Sex and Gender Information Value Date Recorded Sex Assigned at Not on file Legal Sex Female 3:47 PM EDT Gender Identity Not on file Sexual Orientation Not on file Plan of Treatment Health Maintenance Due Date Last Done Comments Advance Care Planning 1945 Hepatitis C Virus Screening 1945 DTaP/Tdap/Td Vaccines (1 - Tdap) 1964 Pneumococcal Vaccines 50+ (1 of 1 - PCV) 1995 Zoster (Shingles) Vaccine (1 of 2) 1995 RSV Vaccine 50 years and old er and Patients (1 - 1-dose 75+ series) 2020 COVID-19 Vaccine ( - 2023-2 5 season) 2025 Hepatitis B Vaccines Aged Out No long er eligible based on patient's age to complete this topic
--- OUTSIDE RECORDS SUMMARY | 2025-03-08 18:51 | XMS_ITS | Patient Health Record ---
Author Organization [facility] Address [address] [facility] [address] [facility] [place] [address] Care Team Providers Care Button Tufter Name Role Phone Christian Lewis MD Primary Care Provider Maite Mayfield Unavailable [phone] Allergies No Known Allergies Reason For Referral [...] Date [employer] [place] Medicare Advantage [address] [facility] [address] [id number] Mary Lou Celestin Self - patient is the insured Medical (General) History Medical History History ICD Code High blood pressure Scarlet fever thyroid Chicken pox Surgical History Surgery Date(Month/Year) hysterectomy 1985 knee surgery, left shoulder surgery right stomach surgery 1995 brain aneurysm 2007 colonoscopy 05/29/23
--- OUTSIDE RECORDS SUMMARY | 2025-03-08 18:53 | XMS_ITS | Patient Health Record ---
Author Organization Christian Lewis MD Address [address] [place], [place] [phone] Care Team Providers Care Credentialing Manager Name Role Phone Christian Lewis Primary Care Provider Allergies Allergen (clinical drug ingredient) Drug/Non Drug Allergy documented on EMR Reaction Allergy Type Onset Date Status lisinopril Lisinopril cough Drug Allergy Activ e Results Component Value Reference Range Notes Complete Blood Count Auto Di ff Reviewed date:05/29/2024 05:42:16 PM Interpretation: Performing Lab:[facility], [address] [place] [address] Notes/Report: White Blood Count 3.5 4.8-10.8 X10*3/uL [...] Reviewed date:05/28/2024 05:57:56 PM Interpretation: Performing Lab:[facility], [address] [place] [address] Notes/Report: Iron 30 30-160 mcg/dL Total Iron Binding Capacity 318 228-428 mcg/dL Percent Iron Saturation 9 15-50 % Unsaturated Iron Binding 288 TSH reflex Free T4 Reviewed date:05/28/2024 05:56:34 PM Interpretation: Performing Lab:[facility], [address] [place] [address] Notes/Report: TSH reflex Free T4 4.87 0.32-4.0 uIU/mL Complete Blood Count Auto Di ff Reviewed date:07/17/2024 12:39:24 PM Interpretation: Performing Lab:[facility], [address] [place] [address] Notes/Report: White Blood Count 3.5 4.8-10.8 X10*3/uL [...] Reviewed date:07/24/2024 12:06:18 PM Interpretation: Performing Lab:[facility], [address] [place] [address] Notes/Report: Urine, Clean Catch Color Urine Yellow Appearance Urine Clear PH 6.0 5.0-9.0 Glucose Urine UA Negative Negative mg/dL Urine Blood Negative Negative Specific [place] - Urine 1.015 1.005-1.025 Urine Protein Negative [...] ff Reviewed date:11/27/2024 12:51:50 PM Interpretation: Performing Lab:[facility], [address] [place] [address] Notes/Report: White Blood Count 3.3 4.8-10.8 X10*3/uL [...] NRBC Abs Auto 0.000 0.0-0.012 X10*3/uL Comprehensive Corona. Panel Fa st Reviewed date:11/27/2024 12:56:13 PM Interpretation: Performing Lab:[facility], [address] [place] [address] Notes/Report: Sodium 140 135-145 mmol/L Potassium 4.0 [...] PROFILE Reviewed date:11/27/2024 12:46:55 PM Interpretation: Performing Lab:[facility], [address] [place] [address] Notes/Report: Iron 47 30-160 mcg/dL Total Iron Binding Capacity 286 228-428 mcg/dL Percent Iron Saturation 16 15-50 % Unsaturated Iron Binding 239 Lipid Panel Reviewed date:11/27/2024 12:47:01 PM Interpretation: Performing Lab:[facility], [address] [place] [address] Notes/Report: Triglycerides 75 <150 mg/dL Desirable Triglyceride: [...] Total Reviewed date:11/27/2024 12:47:19 PM Interpretation: Performing Lab:[address] [address] Notes/Report: Vitamin D 25-OH Total 18.7 >30 [...] T4 Reviewed date:11/27/2024 12:46:25 PM Interpretation: Performing Lab:[facility], [address] [place] [address] Notes/Report: TSH reflex Free T4 2.72 0.32-4.0 uIU/mL Microalbumin, Random Reviewed date:11/27/2024 12:46:32 PM Interpretation: Performing Lab:[facility], [address] [place] [address] Notes/Report: Creatinine Urine 58.19 Microalbumin Urine < 5.0 Microalbum/Creatinine Ratio Ur TNP <30 ug/mg cr Unable to calculate albumin/creatinine ratio due to low microalbumin or creatinine result. Hemoglobin A1c Reviewed date:11/27/2024 12:46:18 PM Interpretation: Performing Lab:[facility], [address] [place] [address] Notes/Report: Hemoglobin A1c % 4.8 <6.0 % [...] average glucose, using the formula of the [id number] Average Glucose study (ADAG), Diabetes Care, Vol.31,#8, 2007 Occult Blood, Stool, Guaiac Reviewed date:12/04/2024 11:56:44 AM Interpretation:Negative Performing Lab: Notes/Report: Negative Occult Blood, Stool, Guaiac Neg Free T4 (Free Thyroxine) Reviewed date:05/28/2024 05:58:04 PM Interpretation: Performing Lab:[facility], [address] [place] [address] Notes/Report: Free T4 (Free Thyroxine) 1.07 0.71-1.85 ng/dL Shabana Hidalgo Reviewed date:05/28/2024 12:21:58 PM Interpretation: Performing Lab:[facility], [address] [place] [address] Notes/Report: Shabana Hidalgo See Note Specimen held untested for 24 hours; Call to request Chemistry testing. Complete Blood Count no Diff Reviewed date:06/24/2024 08:14:18 PM Interpretation: Performing Lab:[facility], [address] [place] [address] Notes/Report: White Blood Count 3.5 4.8-10.8 X10*3/uL [...] Reviewed date:07/24/2024 01:01:29 PM Interpretation:07-24-24 Performing Lab:[facility], [address] [place] [address] Notes/Report: White Blood Count 5.9 4.8-10.8 X10*3/uL [...] by AVIS on 06/23/24 at 1555 by ALBERTIAN. on 06/23/24 at 1555 by ALBERTINA. on [...] X10*3/uL NRBC Abs Auto 0.000 0.0-0.012 X10*3/uL CORRECTED REPORT CORRECTED REPORT CORRECTED REPORT RETIC Reviewed date:06/24/2024 07:58:43 PM Interpretation: Performing Lab:[facility], [address] [place] [address] Notes/Report: Reticulocytes Absolute 0.058 0.026-0.0 95 X10*6/uL Immature Retic Fraction 18.4 3.0-15.9 % Retic HGB Equivalent 16.7 30.0-35.0 pg Reticulocyte Percent 2.6 0.5-1.8 % Pathologist Review - CBC Reviewed date:06/24/2024 08:00:48 PM Interpretation: Performing Lab:[address] [address] Notes/Report: Pathologist Review - CBC Chronic microcytic hypochromic anemia and thrombocytopenia, consistent with the patient's probable GI bleed, low iron, and low B12. Prothrombin Time INR Reviewed date:06/23/2024 07:23:21 PM Interpretation: Performing Lab:[address] [address] Notes/Report: Prothrombin Time 12.7 10.9-12.4 SEC INTERNATIONAL [...] Panel Reviewed date:06/24/2024 08:01:48 PM Interpretation: Performing Lab:[address] [address] Notes/Report: Sodium 139 135-145 mmol/L Potassium 3.4 [...] Magnesium Reviewed date:06/24/2024 08:01:22 PM Interpretation: Performing Lab:[address] [address] Notes/Report: Magnesium 1.7 1.6-2.6 mg/dL IRON PROFILE Reviewed date:06/24/2024 08:00:23 PM Interpretation: Performing Lab:[facility], [address] [place] [address] Notes/Report: Iron 14 30-160 mcg/dL Total Iron Binding Capacity 340 228-428 mcg/dL Percent Iron Saturation 4 15-50 % Unsaturated Iron Binding 326 Ferritin Reviewed date:06/24/2024 07:59:10 PM Interpretation: Performing Lab:[facility], [address] [place] [address] Notes/Report: Ferritin 10 10-250 ng/mL Troponin-I High Sensitivity Reviewed date:06/23/2024 07:16:34 PM Interpretation: Performing Lab:[facility], [address] [place] [address] Notes/Report: Troponin-I High Sensitivity 212.8 <3.5-17.0 ng/L Critical value for test(s): TROP Results called to and read back by: AVIS Person calling: KENNETH Date: 06/23/24 Time: 4832 [place] high sensitivity Troponin-I results should be used in conjunction with other diagnostic information such as ECG, clinical observations and information, and patient symptoms to aid in the diagnosis of MN. B Type Natriuretic Peptide Reviewed date:06/23/2024 07:16:53 PM Interpretation: Performing Lab:[facility], [address] [place] [address] Notes/Report: B Type Natriuretic Peptide 441 <100 pg/mL For those patients who are being treated with Natrecor (nesiritide, recombinant BNP), BNP testing should be performed at least two hours post treatment in order to ensure that only endogenous levels of BNP are detected. Urine Culture Reviewed date:06/25/2024 01:01:20 PM Interpretation: Performing Lab:[facility], [address] [place] [address] Notes/Report: O:ESCCOL Escherichia coli Urine Culture Quant Urine Culture > 100,000 cfu/mL Ampicillin <=2 Cefazolin (Urine) <=1 Cefepime <=0.12 Ceftriaxone <=0.25 Ciprofloxacin <=0.06 Gentamicin <=1 Nitrofurantoin <=16 Trimethoprim/Sulfamethox azole <=20 SLIDE REVIEW Reviewed date:06/24/2024 08:04:16 PM Interpretation: Performing Lab:[facility], [address] [place] [address] Notes/Report: SLIDE REVIEW VERIFIED Type and Screen Reviewed date:06/24/2024 07:58:52 PM Interpretation: Performing Lab:[facility], [address] [place] [address] Notes/Report: mL/HR Rate to transfuse BBK Product [...] Reviewed date:06/25/2024 01:01:34 PM Interpretation: Performing Lab:[facility], [address] [place] [address] Notes/Report: [id number] Urine, Clean Catch Color Urine Yellow Appearance Urine Cloudy PH 6.0 5.0-9.0 Glucose Urine UA Negative Negative mg/dL Urine Blood Moderate (2+) Negative Specific [place] - Urine 1.020 1.005-1.025 Urine Protein 100 (2+) Neg-Trace mg/dL Urine Ketones Negative Negative mg/dL Nitrite Urine Positive Negative Leukocyte Esterase Urine Moderate (2+) Negative RBC Urine 11-20 0-2 /HPF WBC Urine >50 0-5 /HPF Squamous Epithelial Cell Urine 0-2 0-2 /HPF Bacteria Urine 4+ None Seen Hyaline Casts Urine 3-5 0-2 /LPF Red Blood Cells Reviewed date:06/24/2024 07:58:59 PM Interpretation: Performing Lab:[facility], [address] [place] [address] Notes/Report: Red Blood Cells [id number] ON RC Red Blood Cells TRANSFUSED 06/23/24 1810 Red Blood Cells [id number] ON RC Red Blood Cells TRANSFUSED 06/23/24 2232 Red Blood Cells [id number] ON RC Red Blood Cells TRANSFUSED 06/24/[address] gi bleed abd pel wo/w con Reviewed date:06/24/2024 08:00:12 PM Interpretation: Performing Lab: Notes/Report: [address] [address] [address] Scan Report Signed Patient: Mary Lou Celestin MR#: [id number] : 1945 Acct:[id number] Age/Sex: 78 / F ADM Date: 06/23/24 Loc: .ED Attending Dr: Ordering Physician: Kleber Skaggs MD Date of Service: 06/23/24 Procedure(s): CT gi bleed abd pel wo/w IVcon Accession Number(s): [id number] cc: Christian Lewis MD; Kleber Skaggs MD Report Number: [id number]: Total DLP = 1740.00 mGy-cm CLINICAL HISTORY: [...] in OV> 06/23/242239 DD/ 38 TD/TT: 06/23/242238 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 Rebuilder: [place] [address] CT Scan Report Signed Patient: Mary Lou Celestin MR#: [id number] : 1945 Acct:[id number] Age/Sex: 78 / F ADM Date: 06/23/24 Loc: .ED Attending Dr: Ordering Physician: Kleber Skaggs MD Date of Service: 06/23/24 Procedure(s): CT gi bleed abd pel wo/w IVcon Accession Number(s): [id number] cc: Christian Lewis MD; Kleber Skaggs MD Report Number: [id number]: Total DLP = 1740.00 mGy-cm CLINICAL HISTORY: [...] in OV> 06/23/242239 DD/ 38 TD/TT: 06/23/242238 Carburetor Rebuilder: XR chest 1V Reviewed date:06/23/2024 07:16:24 PM Interpretation: Performing Lab: Notes/Report: [address] [address] XRay Report Signed Patient: Mary Lou Celestin MR#: [id number] : 1945 Acct:[id number] Age/Sex: 78 / F ADM Date: 06/23/24 Loc: HO.ED Attending Dr: Ordering Physician: Kleber Skaggs MD Date of Service: 06/23/24 Procedure(s): XR chest 1V Accession Number(s): [id number] cc: Christian Lewis MD; Kleber Skaggs MD [...] in OV> 06/23/241731 DD/ 29 TD/TT: 06/23/241729 Carburetor Rebuilder: [address] [address] XRay Report Signed Patient: Mary Lou Celestin MR#: [id number] : 1945 Acct:[id number] Age/Sex: 78 / F ADM Date: 06/23/24 Loc: HO.ED Attending Dr: Ordering Physician: Kleber Skaggs MD Date of Service: 06/23/24 Procedure(s): XR janine st 1V Accession Number(s): [id number] cc: Christian Lewis MD; Kleber Skaggs MD [...] Roach MD in OV> 06/23/24 173 DD/ 173 TD/TT: 06/23/24 173 Carburetor Rebuilder: Troponin-I High Sensitivity Reviewed date:06/23/2024 07:14:31 PM Interpretation: Performing Lab:[facility], [address] [place] [address] Notes/Report: Troponin-I High Sensitivity 203.1 <3.5-17.0 ng/L Critical value for test(s): HSTNL Results called to and read back by: AVIS Person calling: [facility] Date: 06/23/24 Time: 1857 [place] high sensitivity Troponin-I results should be used in conjunction with other diagnostic information such as ECG, clinical observations and information, and patient symptoms to aid in the diagnosis of MN. Complete Blood Count Auto Di ff Reviewed date:06/24/2024 08:13:35 PM Interpretation: Performing Lab:[facility], [address] [place] [address] Notes/Report: White Blood Count 4.6 4.8-10.8 X10*3/uL [...] Hematocrit Reviewed date:06/24/2024 08:13:51 PM Interpretation: Performing Lab:[facility], [address] [place] [address] Notes/Report: Hemoglobin 7.1 12.0-16.0 g/dl Hematocrit 22.9 37.0-47.0 % Comprehensive Met. Panel Reviewed date:06/24/2024 08:12:56 PM Interpretation: Performing Lab:[address] [address] Notes/Report: Sodium 138 135-145 mmol/L Potassium 3.8 [...] Folate Reviewed date:06/24/2024 08:10:23 PM Interpretation: Performing Lab:[facility], [address] [place] [address] Notes/Report: Vitamin B12 151 200-900 pg/mL NORMAL 200-900 PG/ML INDETERMINATE 160-199 PG/ML DEFICIENT < 160 PG/ML Folate 10.4 > or = 4.0 ng/mL Reference Values: > or = 4.0 ng/mL < 4.0 ng/mL suggests folate deficiency Methotrexate, aminopterin and folinic acid (leucovorin) are chemotherapeutic agents whose molecular structures are similar to folate; therefore, the [employer] folate assay cannot be used for patients using these drugs. Parietal Cell Antibody Reviewed date:07/01/2024 05:42:15 PM Interpretation: Performing Lab:[address] [address] Notes/Report: Parietal Cell Antibody <=20.0 <=20.0 Unit [...] these patients. THIS TEST WAS PERFORMED AT: [facility] [id number] [place] [address] ROSSY CHIN MD,PHD Complete Blood Count Auto Di ff Reviewed date:06/25/2024 07:55:45 AM Interpretation: Performing Lab:[facility], [address] [place] [address] Notes/Report: White Blood Count 4.0 4.8-10.8 X10*3/uL [...] Panel Reviewed date:06/25/2024 07:55:15 AM Interpretation: Performing Lab:[address] [address] Notes/Report: Sodium 137 135-145 mmol/L Potassium 3.3 [...] Peptide Reviewed date:06/25/2024 12:57:23 PM Interpretation: Performing Lab:[address] [address] Notes/Report: B Type Natriuretic Peptide 534 <100 pg/mL For those patients who are being treated with Natrecor (nesiritide, recombinant BNP), BNP testing should be performed at least two hours post treatment in order to ensure that only endogenous levels of BNP are detected. Pathology Reviewed date:06/29/2024 12:33:30 PM Interpretation: Performing Lab:[facility], [address] [place] [address] Notes/Report: -- ---- Name: Frances Celestin Age/Sex: 78/F : 1945 Unit#: [id number] Attend Dr: Mauro Santacruz MD Re06/24/24 Status : DIS IN Location: [facility] 473-1 Disch: 06/26/24 -- ---- SPEC : [id number] RECD: 06/26/24 STATUS: AVI CRAIN NUM: [id number] RICKIE: 06/25/24-[address] [facility] DR: Gilberto Cheema MD ENTERED: 06/26/24- 17 [...] microscopic examination, 3 pieces in cassette [facility] Copies To: Christian Lewis MD [facility] [address] [place], [place] [phone] Mauro Santacruz MD [address] [place] [address] Gilberto Cheema MD [facility] [address] [place] [address] CONTINUED ON NEXT PAGE -- ---- Name: Frances Celestin Age/Sex: 78/F : 1945 Unit#: [id number] Attend Dr: Mauro Santacruz MD Re06/24/24 Status : DIS IN Location: [facility] 473-1 Disch: 06/26/24 -- ---- SPEC : [id number] RECD: 06/26/24 STATUS: AVI FANG NUM: [id number] RICKIE: 06/25/24-[address] [facility] [address]: Gilberto Cheema MD ENTERED: 06/26/24- 17 SP TYPE: Surgical OTHR DR: Christian Lewis MD, Jaehyun MD ORDERED: HE Stain/3, Gross Micro L4 -- ---- Signed (signature on file) Estefany Meena 06/29/24 1054 -- ---- END OF REPORT Complete Blood Count Auto Di ff Reviewed date:06/26/2024 02:19:58 PM Interpretation: Performing Lab:[facility], [address] [place] [address] Notes/Report: White Blood Count 3.4 4.8-10.8 X10*3/uL [...] Panel Reviewed date:06/26/2024 10:43:53 AM Interpretation: Performing Lab:[address] [address] Notes/Report: Sodium 138 135-145 mmol/L Potassium 3.3 [...] Magnesium Reviewed date:06/26/2024 10:43:34 AM Interpretation: Performing Lab:[address] [address] Notes/Report: Magnesium 1.7 1.6-2.6 mg/dL B Type Natriuretic Peptide Reviewed date:06/26/2024 10:43:25 AM Interpretation: Performing Lab:[address] [address] Notes/Report: B Type Natriuretic Peptide 704 <100 pg/mL For those patients who are being treated with Natrecor (nesiritide, recombinant BNP), BNP testing should be performed at least two hours post treatment in order to ensure that only endogenous levels of BNP are detected. IRON PROFILE Reviewed date:07/03/2024 12:33:32 PM Interpretation: Performing Lab:[address] [address] Notes/Report: Iron 41 30-160 mcg/dL Total Iron Binding Capacity 312 228-428 mcg/dL Percent Iron Saturation 13 15-50 % Unsaturated Iron Binding 271 Ferritin Reviewed date:07/03/2024 12:33:21 PM Interpretation: Performing Lab:[facility], [address] [place] [address] Notes/Report: Ferritin 41 10-250 ng/mL Urine Culture Reviewed date:07/26/2024 02:52:40 PM Interpretation: Performing Lab:[address] [address] Notes/Report: Urine Culture Report Result Urine Culture < 10,000 cfu/ml Complete Blood Count Auto Di ff Reviewed date:07/27/2024 06:07:45 PM Interpretation: Performing Lab:[address] [address] Notes/Report: White Blood Count 2.7 4.8-10.8 X10*3/uL [...] Reviewed date:07/27/2024 05:48:49 PM Interpretation: Performing Lab:[facility], [address] [place] [address] Notes/Report: Reticulocytes Absolute 0.160 0.026-0.0 95 X10*6/uL Immature Retic Fraction 21.6 3.0-15.9 % Retic HGB Equivalent 26.2 30.0-35.0 pg Reticulocyte Percent 5.2 0.5-1.8 % Ferritin Reviewed date:07/28/2024 12:21:06 PM Interpretation: Performing Lab:[facility], [address] [place] [address] Notes/Report: Ferritin 40 10-250 ng/mL Lactate Dehydrogenase Reviewed date:07/28/2024 12:21:27 PM Interpretation: Performing Lab:[facility], [address] [place] [address] Notes/Report: Lactate Dehydrogenase 206 122-220 U/L Immunofixation Pnl, Serum Reviewed date:07/29/2024 07:12:14 PM Interpretation: Performing Lab:[facility], [address] [place] [address] Notes/Report: IgG 531 054-7207 mg/dL IgA 149 70-320 mg/dL IgM 77 50-300 mg/dL THIS TEST WAS PERFORMED AT: [facility] [address] [place] [phone] MEENA CHAMORRO MD Immunofixation Interpretation SEE NOTE Normal pattern. No monoclonal proteins detected. Type and Screen Reviewed date:07/31/2024 12:19:46 PM Interpretation: Performing Lab:[facility], [address] [place] [address] Notes/Report: Witnessed by SAUL Results at Issue [...] Reviewed date:07/31/2024 12:19:31 PM Interpretation: Performing Lab:[facility], [address] [place] [address] Notes/Report: Red Blood Cells [id number] ON RC Red Blood Cells TRANSFUSED 07/29/24 1302 Red Blood Cells [id number] ON RC Red Blood Cells TRANSFUSED 07/29/24 1101 Red Blood Cells [id number] ON RC Red Blood Cells TRANSFUSED 07/29/24 1302 Red Blood Cells [id number] ON RC Red Blood Cells TRANSFUSED 07/29/24 1101 CORRECTED REPORT Antibody Identification Reviewed date:07/31/2024 12:19:39 PM Interpretation: Performing Lab:[address] [address] Notes/Report: Antibody Identification [employer] Antibody Identification JKA CORRECTED REPORT Complete Blood Count no Diff Reviewed date:08/03/2024 04:33:21 PM Interpretation: Performing Lab:[address] [address] Notes/Report: White Blood Count 2.9 4.8-10.8 X10*3/uL [...] INR Reviewed date:08/02/2024 05:18:51 PM Interpretation: Performing Lab:[address] [address] Notes/Report: Prothrombin Time 12.3 10.9-12.4 SEC INTERNATIONAL [...] Reviewed date:08/03/2024 12:05:42 PM Interpretation: Performing Lab:[facility], [address] [place] [address] Notes/Report: Sodium 141 135-145 mmol/L Potassium 3.9 [...] date:08/06/2024 04:05:23 PM Interpretation: Performing Lab: Notes/Report: [address] [address] Ultrasound Report Signed Patient: Mary Lou Celestin MR#: [id number] : 1945 Acct:[id number] Age/Sex: 79 / F ADM Date: 08/05/24 Loc: HO.US Attending Dr: Gilberto Cheema MD Ordering Physician: Gilberto Cheema MD Date of Service: 08/05/24 Procedure(s): US abdomen comp w elastography Accession Number(s): [id number] cc: Christian Lewis MD; Gilberto Cheema MD [...] 08/06/24 1231 DD/ 0900 TD/TT: 08/05/24 0945 Carburetor Rebuilder: [place] [address] Ultrasound Report Signed Patient: Mary Lou Celestin MR#: [id number] : 1945 Acct:[id number] Age/Sex: 79 / F ADM Date: 08/05/24 Loc: HO.US Attending Dr: Gilberto Cheema MD Ordering Physician: Gilberto Cheema MD Date of Service: 08/05/24 Procedure(s): US abdomen comp w elastography Accession Number(s): [id number] cc: Christian Lewis MD; Gilberto Cheema MD EXAMINATION: US ABDOMEN COMPLETE WITH LIVER ELASTOGRAPHY HISTORY: FATTY LIVER [...] SIGNIFICANT CHANGE FROM PRIOR EXAM: Significant change i f liver [...] 08/06/24 1231 DD/ 0900 TD/TT: 08/05/24 0945 Carburetor Rebuilder: US duplex arterial venous co mp Reviewed date:08/06/2024 04:04:32 PM Interpretation: Performing Lab: Notes/Report: [address] [address] Ultrasound Report Signed Patient: Mary Lou Celestin MR#: [id number] : 1945 Acct:[id number] Age/Sex: 79 / F ADM Date: 08/05/24 Loc: HO.US Attending Dr: Gilberto Cheema MD Ordering Physician: Gilberto Cheema MD Date of Service: 08/05/24 Procedure(s): US duplex arterial venous comp Accession Number(s): [id number] cc: Christian Lewis MD; Gilberto Cheema MD [...] 08/06/24 1231 DD/ 0900 TD/TT: 08/05/24 0945 Carburetor Rebuilder: [place] [address] Ultrasound Report Signed Patient: Mary Lou Celestin MR#: [id number] : 1945 Acct:[id number] Age/Sex: 79 / F ADM Date: 08/05/24 Loc: HO.US Attending Dr: Gilberto Cheema MD Ordering Physician: Gilberto Cheema MD Date of Service: 08/05/24 Procedure(s): US duplex arterial venous comp Accession Number(s): [id number] cc: Christian Lewis MD; Gilberto Cheema MD EXAMINATION: US ABDOMEN COMPLETE WITH LIVER ELASTOGRAPHY HISTORY: FATTY LIVER [...] SIGNIFICANT CHANGE FROM PRIOR EXAM: Significant change i f liver [...] 08/06/24 1231 DD/ 0900 TD/TT: 08/05/24 0945 Carburetor Rebuilder: Complete Blood Count Auto Di ff Reviewed date:08/13/2024 04:27:13 PM Interpretation: Performing Lab:[facility], [address] [place] [address] Notes/Report: White Blood Count 3.2 4.8-10.8 X10*3/uL [...] Reviewed date:08/17/2024 12:18:53 PM Interpretation: Performing Lab:[facility], [address] [place] [address] Notes/Report: ANEMIA [id number] LEFT ILIAC CREST LLE Interpretation See Note See repor t from [employer] in the EMR. Chromosome Anal. Bone Marrow Reviewed date:08/20/2024 12:50:52 PM Interpretation: Performing Lab:[facility], [address] [place] [address] Notes/Report: LEFT ILIAC CREST ANEMIA [id number] Chromosome Anal. Bone Marrow See note See report from [employer] in the EMR. FISH,CLL 11q22.3 Reviewed date:08/27/2024 06:45:39 PM Interpretation: Performing Lab:[facility], [address] [place] [address] Notes/Report: FISH CLL (Tech only) [employer] FISH,CLL 11q22.3 See Note See report from [employer] in the EMR. Pathology Reviewed date:09/24/2024 12:31:40 PM Interpretation: Performing Lab:[facility], [address] [place] [address] Notes/Report: -- ---- Name: Frances Celestin miranda Katie Age/Sex: 79/F : 1945 Unit#: [id number] Attend Dr: Hoa Olivares MD Re08/13/24 Status : [facility] Location: [facility] Disch: -- ---- SPEC : [id number] RECD : 08/13/24-1399 STATUS: AVI FANG NUM: [id number] RICKIE: 08/13/24-[address]: Tim Perla MD ENTERED: 08/13/24 09 SP TYPE: Surgical OTHR DR: Christian Lewis MD, Renuka MD ORDERED: Bm Smear, Iron Stain/3, HE Stain/3, Reticulin Stain, Gross Micro L4/2, B Cell, T Cell, Andrew Giemsa/3, IHC, Add. immunos/4, IHC ER/UT/Her2N, Special st. 2/4, Ki-67, Bcl-6, CD5, CD10, Decal Addendum Addendum 1 Entered: 09/24/24 Cytogenetics: Normal female karyotype 46,XX[20] - See report in its entirety in the EMR - Reports/Pathology section as a scanned report (camera icon). If appropriate, a copy has also been sent to the ordering provider's office. Addendum Signed (signature on file) Refugio Lozano MD 09/24/24906 -- ---- Diagnosis A-C. Bone marrow, aspirate, biopsy and [...] and cytogenetics pending CONTINUED ON NEXT PAGE -- ---- Name: Frances Celestin Age/Sex: 79/F : 1945 Unit#: [id number] Attend Dr: Hoa Olivares MD Re08/13/24 Status : [facility] Location: [facility] Disch: -- ---- SPEC : [id number] RECD : 08/13/24-1400 STATUS: AVI FANG NUM: [id number] RICKIE: 08/13/24-13[address] [facility] [address]: Tim Perla MD ENTERED: 08/13/24-14 09 SP TYPE: Surgical OTHR DR: Christian Lewis MD, Renuka MD ORDERED: Bm Smear, Iron Stain/3, HE Stain/3, Reticulin Stain, Gross Micro L4/2, B Cell, T Cell, Andrew Giemsa/3, IHC, Add. immunos/4, IHC ER/UT/Her2N, Special st. 2/4, Ki-67, Bcl-6, CD5, CD10, [...] erythroid precursors have normoblastic maturation. Myeloid precursors have normal maturation through to the neutrophilic stage. Megakaryocytes appear normal in number and are typical appearing. In the clot [...] number and have normal maturation. Megakaryocytes are seen and morphologically typical. The differential has less than 1 blast, 2 promyelocytes, 12 myelocytes/metamyelocy rodrick, 21 bands/neutrophils, 21 lymphs, 2 plasma cell, [...] iliac bone aspirate CONTINUED ON NEXT PAGE -- ---- Name: Frances Celestin Age/Sex: 79/F : 1945 Unit#: [id number] Attend Dr: Hoa Olivares MD Re08/13/24 Status : [facility] Location: [facility] Disch: -- ---- SPEC : [id number] REC -1400 STATUS: AVI FANG NUM: [id number] RICKIE: 08/13/24-[address]: Tim Perla MD ENTERED: 08/13/24-14 09 SP TYPE: Surgical OTHR DR: Christian Lewis MD, Renuka MD ORDERED: Bm Smear, Iron Stain/3, HE Stain/3, Reticulin Stain, Gross Micro L4/2, B Cell, T Cell, Andrew Giemsa/3, IHC, Add. immunos/4, IHC ER/UT/Her2N, Special st. 2/4, Ki-67, Bcl-6, CD5, CD10, [...] to Dr. Olivares on 08/18/2024 Special studies ordered and performed: iron stain (A, B and C); reticulin stain (B); immunostains for CD2 0, CD3, CD5, CD10, bcl-6 and Ki-67 on C Copies To: Christian Lewis MD [facility] [address] [place] [address] [address] [place], [place] [phone] Tim Perla MD [address] [place] [address] Hoa Olivares MD [facility] Oncology/Hematology [address] [place] [address] CONTINUED ON NEXT PAGE -- ---- Name: Frances Celestin Age/Sex: 79/F : 1945 Unit#: [id number] Attend Dr: Hoa Olivares MD Re08/13/24 Status : [facility] Location: [facility] Disch: -- ---- SPEC : [id number] RECD : 08/13/24-1400 STATUS: AVI FANG NUM: [id number] RICKIE: 08/13/24-13[address] [facility] [address]: Tim Perla MD ENTERED: 08/13/24-14 09 SP TYPE: Surgical OTHR DR: Christian Lewis MD, Renuka MD ORDERED: Bm Smear, Iron Stain/3, HE Stain/3, Reticulin Stain, Gross Micro L4/2, B Cell, T Cell, Andrew Giemsa/3, IHC, Add. immunos/4, IHC ER/UT/Her2N, Special st. /4, Ki-67, Bcl-6, CD5, CD10, Decal -- ---- Signed (signature on file) Refugio Lozano MD 08/19/24 0944 -- ---- END OF REPORT CT biopsy asp core bone mohan ow Reviewed date:08/21/2024 12:03:15 PM Interpretation: Performing Lab: Notes/Report: [address] [address] [address] Scan Report Signed Patient: Mary Lou Celestin MR#: [id number] : 1945 Acct:[id number] Age/Sex: 79 / F ADM Date: 08/13/24 Loc: [facility] Attending Dr: Hoa Olivares MD Ordering Physician: Hoa Olivares MD Date of Service: 08/13/24 Procedure(s): CT biopsy asp core bone marrow Accession Number(s): [id number] cc: Christian Lewis MD; Hoa Olivares MD Report Number: [id number]: Total DLP = 219.00 mGy-cm PROCEDURES: 1. [...] 08/13/24 1354 DD/ 1254 TD/TT: 08/13/24 1354 Carburetor Rebuilder: [place] [address] CT Scan Report Signed Patient: Mary Lou Celestin MR#: [id number] : 1945 Acct:[id number] Age/Sex: 79 / F ADM Date: 08/13/24 Loc: [facility] Attending Dr: Hoa Olivares MD Ordering Physician: Hoa Olivares MD Date of Service: 08/13/24 Procedure(s): CT biopsy asp core bone marrow Accession Number(s): [id number] cc: Christian Lewis MD; Hoa Olivares MD Report Number: [id number]: Total DLP = 219.00 mGy-cm PROCEDURES: 1. [...] TIME: 15 min PROCEDURE NOTE: The procedure, risks [...] 08/13/24 1354 DD/ 1254 TD/TT: 08/13/24 1354 Carburetor Rebuilder: Complete Blood Count Auto Di ff Reviewed date:08/27/2024 06:36:51 PM Interpretation: Performing Lab:[address] [address] Notes/Report: White Blood Count 3.3 4.8-10.8 X10*3/uL [...] RETIC Reviewed date:08/27/2024 06:30:16 PM Interpretation: Performing Lab:[facility] [address] [address] Notes/Report: Reticulocytes Absolute 0.120 0.026-0.0 95 X10*6/uL Immature Retic Fraction 12.6 3.0-15.9 % Retic HGB Equivalent 32.6 30.0-35.0 pg Reticulocyte Percent 3.2 0.5-1.8 % Ferritin Reviewed date:08/27/2024 06:30:01 PM Interpretation: Performing Lab:[address] [address] Notes/Report: Ferritin 36 10-250 ng/mL Lactate Dehydrogenase Reviewed date:08/27/2024 06:29:52 PM Interpretation: Performing Lab:[address] [address] Notes/Report: Lactate Dehydrogenase 197 122-220 U/L Vitamin B12 Reviewed date:08/27/2024 06:29:45 PM Interpretation: Performing Lab:[address] [address] Notes/Report: Vitamin B12 594 200-900 pg/mL NORMAL 200-900 PG/ML INDETERMINATE 160-199 PG/ML DEFICIENT < 160 PG/ML Haptoglobin Reviewed date:08/27/2024 06:30:08 PM Interpretation: Performing Lab:[address] [address] Notes/Report: Haptoglobin 51 63-273 mg/dL PET CT fusion skull to thigh Reviewed date:09/09/2024 12:32:30 PM Interpretation: Performing Lab: Notes/Report: [address] [address] PET Report Signed Patient: Mary Lou Celestin MR#: [id number] : 1945 Acct:[id number] Age/Sex: 79 / F ADM Date: 09/08/24 Loc: HO.PET Attending Dr: Hoa Olivares MD Ordering Physician: Hoa Olivares MD Date of Service: 09/08/24 Procedure(s): PET CT fusion skull to thigh Accession Number(s): [id number] cc: Christian Lewis MD; Hoa Olivares MD [...] 09/09/24 0729 DD/ 1130 TD/TT: 09/08/24 1300 Carburetor Rebuilder: [place] [address] PET Report Signed Patient: Mary Lou Celestin MR#: [id number] : 1945 Acct:[id number] Age/Sex: 79 / F ADM Date: 09/08/24 Loc: HO.PET Attending Dr: Hoa Olivares MD Ordering Physician: Hoa Olivares MD Date of Service: 09/08/24 Procedure(s): PET CT fusion skull to thigh Accession Number(s): [id number] cc: Christian Lewis MD; Hoa Olivares MD [...] the PET CT exam is unremarkable. Electronically pilar d by: Jeevan De Anda MD 09/09/2024 07:29 AM EDT Dictated By: Jeevan De Anda MD Signed By: <Electronically signed by Jeevan De Anda MD in OV> 04/23/25 0729 DD/ 1130 TD/TT: 09/08/24 1300 Carburetor Rebuilder: CHAZ Complete Blood Count no Diff Reviewed date:09/21/2024 12:34:56 PM Interpretation: Performing Lab:[facility], [address] [place] [address] Notes/Report: White Blood Count 3.3 4.8-10.8 X10*3/uL [...] Ferritin Reviewed date:09/21/2024 01:56:38 PM Interpretation: Performing Lab:[facility], [address] [place] [address] Notes/Report: Ferritin 37 10-250 ng/mL Type and Screen Reviewed date:09/21/2024 04:08:57 PM Interpretation: Performing Lab:[facility], [address] [place] [address] Notes/Report: Witnessed by ACER Blood Type ON Antibody Screen POSITIVE Antibody Identification Reviewed date:09/21/2024 04:10:50 PM Interpretation: Performing Lab:[address] [address] Notes/Report: Antibody Identification JKA Haptoglobin Reviewed date:09/21/2024 12:34:38 PM Interpretation: Performing Lab:[facility], [address] [place] [address] Notes/Report: Haptoglobin 53 63-273 mg/dL Complete Blood Count Auto Di ff Reviewed date:10/19/2024 12:50:32 PM Interpretation: Performing Lab:[facility], [address] [place] [address] Notes/Report: White Blood Count 4.3 4.8-10.8 X10*3/uL [...] Ferritin Reviewed date:10/19/2024 12:50:09 PM Interpretation: Performing Lab:[facility], [address] [place] [address] Notes/Report: Ferritin 30 10-250 ng/mL Lactate Dehydrogenase Reviewed date:10/19/2024 12:50:00 PM Interpretation: Performing Lab:[facility], [address] [place] [address] Notes/Report: Lactate Dehydrogenase 349 122-220 U/L Complete Blood Count Auto Di ff Reviewed date:11/13/2024 04:04:49 PM Interpretation: Performing Lab:[facility], [address] [place] [address] Notes/Report: White Blood Count 3.1 4.8-10.8 X10*3/uL [...] Panel Reviewed date:11/13/2024 12:58:32 PM Interpretation: Performing Lab:[facility], [address] [place] [address] Notes/Report: Sodium 138 135-145 mmol/L Potassium 4.0 [...] Panel Reviewed date:11/13/2024 12:40:35 PM Interpretation: Performing Lab:[facility], [address] [place] [address] Notes/Report: Triglycerides 54 <150 mg/dL Desirable Triglyceride: [...] ff Reviewed date:11/23/2024 12:53:30 PM Interpretation: Performing Lab:[address] [address] Notes/Report: White Blood Count 3.6 4.8-10.8 X10*3/uL [...] Panel Reviewed date:11/23/2024 12:47:55 PM Interpretation: Performing Lab:[facility], [address] [place] [address] Notes/Report: Sodium 139 135-145 mmol/L Potassium 3.8 [...] Dehydrogenase Reviewed date:11/23/2024 12:46:45 PM Interpretation: Performing Lab:[address] [address] Notes/Report: Lactate Dehydrogenase 362 122-220 U/L Haptoglobin Reviewed date:11/23/2024 12:39:44 PM Interpretation: Performing Lab:[address] [address] Notes/Report: Haptoglobin < 8 63-273 mg/dL Hold Gold Reviewed date:11/27/2024 12:44:45 PM Interpretation: Performing Lab:[address] [address] Notes/Report: Hold Gold See Note Specimen held untested for 24 hours; Call to request Chemistry testing. CT soft tissue neck w con Reviewed date:01/01/2025 09:33:54 AM Interpretation:01-01-2025 Performing Lab: Notes/Report: [address] [address] [address] Scan Report Signed Patient: Mary Lou Celestin MR#: [id number] : 1945 Acct:[id number] Age/Sex: 79 / F ADM Date: 12/15/24 Loc: HO.CT Attending Dr: Hoa Olivares MD Ordering Physician: Hoa Olivares MD Date of Service: 12/15/24 Procedure(s): CT soft tissue neck w IV con Accession Number(s): [id number] cc: Christian Lewis MD; Hoa Olivares MD Report Number: [id number]: Total DLP = 443.00 mGy-cm EXAMINATION: CT SOFT TISSUE NECK WITH CONTRAST CLINICAL INFORMATION: Stage CLL COMPARISON: Recent PET/CT dated September 08, 2024 demonstrated a focal abnormal uptake in the left nasopharynx. TECHNIQUE: Following the intravenous administration of 60 mL of Omnipaque 350 intravenous contrast, helical imaging was performed in the axial plane with generation of coronal and sagittal reformatted images. This CT examination was performed using dose optimization techniques as appropriate, variously including the following: *Automated exposure control *Adjustment of mA and/or kV according to patient size (this includes techniques or standardized protocols for targeted exams where dose is matched to indication/reason for exam; i.e. extremities or head) *Use of iterative reconstruction technique. DLP: 443 mg centimeter. FINDINGS: There is a slight asymmetric increased density centered in the left lateral nasopharynx involving porus tubarius/eustachian tube. The oropharynx, hypopharynx and larynx demonstrated no gross masses. Punctate calcifications in the left palatine tonsils. The oral cavity and sublingual and submandibular compartments demonstrated no gross masses. Prison Guard spaces, parapharyngeal and carotid compartments demonstrated no gross masses. Salivary glands demonstrated asymmetric volume loss without mass in the right submandibular gland.. No gross lymphadenopathy. Mixed plaques in the carotid bulbs and proximal ICAs presenting 80% stenosis in the right ICA and less than 70% stenosis in the left ICA. The vessels are patent. The right vertebral artery is dominant. 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 Edentulous, maxilla. Tympanic cavities and mastoid cells are aerated. No air-fluid levels in the paranasal sinuses. Centrilobular emphysematous changes in the lungs. 2 mm calcified pulmonary nodule, right upper lung lobe likely granuloma. Aberrant right subclavian artery with a retroesophageal trajectory. Secretions layering in the trachea. Calcified plaques in the thoracic aortic arch and its main branches. Multilevel cervical spondylosis pronounced at C5-6. CT/CT soft tissue neck w IV con IMPRESSION: Irregular soft tissue asymmetric increased density, left nasopharynx. This corresponds to the abnormal uptake/increased FDG activity. No cervical lymphadenopathy. Secretions within the trachea likely related to penetration and/or aspiration. Aberrant right subclavian artery. Atherosclerosis disease. Emphysematous changes. Tonsilliths, left palatine tonsil.. Electronically signed by: Koko Strong MD 12/15/2024 02:40 PM EDT RP Dictated By: Koko Mohan MD Signed By: <Electronically signed by Koko Edge MD in OV> 12/15/24 1440 DD/ 1404 TD/TT: 12/15/24 1424 Carburetor Rebuilder: [place] [address] CT Scan Report Signed Patient: Mary Lou Celestin MR#: [id number] : 1945 Acct:[id number] Age/Sex: 79 / F ADM Date: 12/15/24 Loc: HO.CT Attending Dr: Hoa Olivares MD Ordering Physician: Hoa Olivares MD Date of Service: 12/15/24 Procedure(s): CT sof t tissue neck w IV con Accession Number(s): [id number] cc: Christian Lewis MD; Hoa Olivares MD Report Number: [id number]: Total DLP = 443.00 mGy-cm EXAMINATION: CT SOFT TISSUE NECK WITH CONTRAST CLINICAL INFORMATION: Stage CLL COMPARISON: Recent PET/CT dated September 08, 2024 demonstrated a focal abnormal uptake in the left nasopharynx. TECHNIQUE: Following the intravenous administration of 60 mL of Omnipaque 350 intravenous contrast , helical imaging was performed in the axial plane with generation of coronal and sagittal reformatted images. This CT examination was performed using dose optimization techniques as appropriate, various ly including the following: *Automated exposure control *Adjustment of mA and/or kV according to patient size (this includes techniques or standardized protocols for targeted exams where dose is matched to indication/reason for exam; i.e. extremities or head) *Use of iterative reconstruction technique. DLP: 443 mg centimeter. FINDINGS: There is a slight asymmetric increased density centered in the left lateral nasopharynx involving porus tubarius/eustachian tube. The oropharynx, hypopharynx and larynx demonstrated no gross masses. Punctate calcifications in the left palatine tonsils. The oral cavity and sublingual and submandibular compartments demonstrated no hattie s masses. Prison Guard spaces, parapharyngeal and carotid compartments demonstrated no gross masses. Salivary glands demonstrated asymmetric volume loss without mass in the right submandibular gland.. No gross lymphadenopathy. Mixed plaques in the carotid bulbs and proximal ICAs presenting 80% stenosis in the righ t ICA and less than 70% stenosis in the left ICA. The vessels are patent. The right vertebral artery is dominant. 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 Edentulous, maxilla. Tympanic cavities an d mastoid cells are aerated. No air-fluid levels in the paranasal sinuses. Centrilobular emphysematous changes in the lungs. 2 mm calcified pulmonary nodule, right upper lung lobe likely granuloma. Aberrant right subclavian artery with a retroesophageal trajectory. Secretions layering in the trachea. Calcified plaques in the thoracic aortic arch and its main branches. Multilevel cervical spondylosis pronounced at C5-6. CT/CT soft tissue neck w IV con IMPRESSION: Irregular soft tissu e asymmetric increased density, left nasopharynx. This corresponds to the abnormal uptake/increased FDG activity. No cervical lymphadenopathy. Secretions within th e trachea likely related to penetration and/or aspiration. Aberrant right subclavian artery. Atherosclerosis disease. Emphysematous changes. Tonsilliths, left palatine tonsil.. Electronically pilar d by: Koko Strong MD 12/15/2024 02:40 PM EDT RP Dictated By: Koko Palma MD Signed By: <Electronically signed by Koko Edge MD in OV> 12/15/24 1440 DD/ 1404 TD/TT: 12/15/24 1424 Carburetor Rebuilder: Complete Blood Count Auto Di ff Reviewed date:02/22/2025 12:36:14 PM Interpretation: Performing Lab:[facility], [address] [place] [address] Notes/Report: White Blood Count 4.4 4.8-10.8 X10*3/uL Red Blood Count 3.91 4.20-5.50 X10*6/uL Hemoglobin 11.3 12.0-16.0 g/dl Hematocrit 32.5 37.0-47.0 % Mean Corpuscular Volume 83.1 80.0-98.0 fL Mean Corpuscular Hemoglobin 28.9 27.0-33.0 pg Mean Corpuscular HGB Conc 34.8 31.0-35.0 g/dl Red Cell Distribution Width 15.5 11.0-16.0 % Platelet Count 86 160-400 X10*3/uL Mean Platelet Volume 12.5 9.4-12.3 fL Neutrophils Percent Auto 69.5 45-73 % Imm Gran Pct Auto 0.5 0.0-0.4 % Lymphocytes Percent Auto 19.0 20-40 % Monocytes Percent Auto 8.2 2-11 % Eosinophils Percent Auto 2.1 0-4 % Basophils Percent Auto 0.7 0-2 % NRBC Pct Auto 0.0 0.0-0.2 /100WBC Neutrophils Absolute Auto 3.0 2.0-8.3 x10*3/uL Imm Gran Abs Auto 0.02 0.00-0.03 X10*3/uL Lymphocytes Absolute Auto 0.8 1.2-4.9 X10*3/uL Monocytes Absolute Auto 0.4 0.1-1.2 X10*3/uL Eosinophils Absolute Auto 0.1 0.0-0.4 X10*3/uL Basophils Absolute Auto 0.0 0.0-0.2 X10*3/uL NRBC Abs Auto 0.000 0.0-0.012 X10*3/uL Comprehensive Met. Panel Reviewed date:02/22/2025 12:29:56 PM Interpretation: Performing Lab:[facility], [address] [place] [address] Notes/Report: Sodium 137 135-145 mmol/L Potassium 4.1 3.3-5.1 mmol/L Chloride 105 96-108 mmol/L Carbon Dioxide 26 22-29 mmol/L Anion Gap 10 12-20 Blood Urea Nitrogen 11 9-16 mg/dL Creatinine 0.69 0.5-1.4 mg/dL Creatinine Clr Calc Pharmacy 70.1 Provided height and weight: 165.1 cm, 82.554 kg. eGFR (calculated from the MDRD study equation) and eCrCl (calculated from the Cockcroft-Gault equation) are based on different parameters and may not yield comparable results. If eCrCl result is absurd, please check patient's height/weight. Estimated Glomerular Filt Rate > 60 Chronic Kidney Disease: Estimated GFR < 60 mL/min/1.73m2 Severe Kidney Disease: Estimated GFR < 15 mL/min/1.73m2 Glucose Random 122 60-115 mg/dL Calcium 9.3 8.4-10.2 mg/dL Bilirubin Total 0.8 0.0-1.0 mg/dL Aspartate Amino Transferase 34 5-31 U/L Alanine Aminotransferase 20 0-31 U/L Total Protein 6.1 6.5-8.0 g/dL Albumin Level 4.0 3.5-5.0 g/dL Alkaline Phosphatase 65 39-117 U/L Lactate Dehydrogenase Reviewed date:02/22/2025 12:29:37 PM Interpretation: Performing Lab:[facility], [address] [place] [address] Notes/Report: Lactate Dehydrogenase 323 122-220 U/L Reason For Referral Reason MRO and Ct report at [facility] Diagnosis 1 Mass of sinus (R22.0 ) [...] Referral Priority Routine Referral Appointment Date 03/12/2025 Medications Medication SIG (Take, Route, Frequency, Duration) Notes Start Date End Date Status Ferrous Sulfate 325 (65 Fe) MG 1 tablet Orally Once a day 02/23/2021 Active Vitamin D 2000 UNIT Orally Active Valsartan-hydroCHLOROthiazid e 160-12.5 MG TAKE 1 TABLET BY MOUTH EVERY DAY Active Levothyroxine Sodium 100 MCG TAKE 1 [...] 3 days for 14 days 02/02/2025 Active Immunizations Vaccine Route Administration Date Status Comme [facility] Flu Vaccine IM Intramuscular 03/05/2011 Administered Flu Vaccine Unknown 03/10/2012 Administered [facility] Flu Vaccine Unknown 03/12/2012 Administered flu vac at [facility] Flu Vaccine IM Intramuscular 01/26/2013 Administered PPSV23 (Pnemovax) IM Intramuscular 01/29/2013 Administered Fluarix Quadrivalent IM Intramuscular 02/16/2014 Administered Fluarix Quadrivalent IM Intramuscular 03/14/2015 Administered Prevnar 13 IM Intramuscular 09/26/2015 Administered Fluarix Quadrivalent IM Intramuscular 03/20/2016 Administered Fluarix Quadrivalent IM Intramuscular 03/05/2017 Administered TDaP Unknown 04/08/2017 Administered pt was given the vaccine at [facility] on [facility] Fluarix Quadrivalent IM Intramuscular 04/21/2018 Administered PPSV23 (Pnemovax) IM Intramuscular 04/25/2018 Administered Influenza High Dose IM Intramuscular 03/12/2019 Administer ed Influenza High Dose Unknown 02/08/2020 Administered [facility] Influenza High Dose Unknown 02/11/2020 Administered [facility] Influenza High Dose IM Intramuscular 02/10/2020 Administer ed [facility] SARS-COV-2 Pfizer Unknown 08/31/2020 Administered [...] SARS-COV-2 Moderna 2022 Unknown 02/07/2024 Administered [facility] Influenza High Dose IM Intramuscular 01/19/2025 Administer ed Flu Vaccine Unknown 02/16/2014 Pending Social History [...] Problem Status W/U Status Risk Notes Problem 339746339 Thrombocytopenia (D69.6) Active confirmed Problem 54760879 Lymphocytosis (D72.820) Active confirmed Problem 338938862 Tubular adenoma (D36.9) Active confirmed Problem 933148770 Reflux esophagit is (K21.00) Active confirmed Problem Vitamin D deficiency (05432115) Vitamin D deficiency (E55.9) Active confirmed Problem 669812051 Annual physical exam (Z00.00) Active confirmed Problem 882342090 Morbid (severe) obesity due to excess calories (E66.01) Active confirmed Problem 95680776 Cerebral aneurys m, nonruptured (I67.1) Active confirmed Problem 916267353 Body mass index (BMI) 36.0-36.9, adult (Z68.36) Active confirmed Problem 541567776 Osteopenia (M85.80) Active confirmed Problem 37829932 Essential hypert ension (I10) Active confirmed Problem 884012124 Acquired hypothyroidism (E03.9) Active confirmed Problem 1063188 Prediabetes (R73.09) Active confirmed Problem 524686676 Low HDL (under 4 0) (E78.6) Active confirmed Problem 488463533 Nonrheumatic aor tic valve stenosis (I35.0) Active confirmed Problem Non-Hodgkin lymphoma ([id number]) Lymphoma (C85.90) Active confirmed Problem 66065525 Hiatal hernia (K44.9) Active confirmed Problem 63197044 Iron deficiency anemia, unspecified iron deficiency anemia type (D50.9) Active confirmed Problem 811317398 Neutropenia, unspecified type (D70.9) Active confirmed Problem 500715603 Severe aortic st enosis (I35.0) Active confirmed Problem 685763720 Pure hypercholesterolemia (E78.00) Active confirmed Problem 591595102 BMI 39.0-39.9,ad ult (Z68.39) Active confirmed Problem 412917783 BMI 38.0-38.9,ad ult (Z68.38) Active confirmed Problem 6433822715070080 Barretts esopha eddie with dysplasia (K22.719) Active confirmed Problem 668162574 Asymptomatic nael icose veins (I83.90) Active confirmed Problem History of heart valve repair with prosthesis (636883427533449) 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 Problem 196738689 Aortic stenosis, moderate (I35.0) Active confirmed Vital Signs Blood pressure diastolic 60 mm Hg 03/05/2025 radha ght is up 6 pounds since 02-02-25 Height 65.25 in 03/05/2025 weight is up 6 pounds since 02-02-25 Blood pressure systolic 132 mm Hg 03/05/2025 weig ht is up 6 pounds since 02-02-25 Weight 188 lbs 03/05/2025 weight is up 6 pounds since 02-02-25 BMI 31.04 kg/m2 03/05/2025 weight is up 6 pounds since 02-02-25 Encounters Encounter Location Date Provider Diagnosis Christian Lewis MD [address] [place] [address] [id number] 05/28/2024 Christian Lewis Iron deficiency E61. 1 ; Thrombocytopenia D69.6 and Acquired hypothyroidism E03.9 Christian Lewis MD [address] [place] [address] [id number] 07/17/2024 Christian Lewis Gastrointestinal hemorrhage associated with duodenitis K29.81 Christian Lewis MD [address] [place] [address] [id number] 07/24/2024 Christian Lewis Hematuria, unspecifi ed type R31.9 Christian Lewis MD [address] [place] [address] [id number] 11/27/2024 Christian Lewis Blood tests for rout ine general physical examination Z00.00 ; Essential hypertension I10 ; Prediabetes R73.09 ; Acquired hypothyroidism E03.9 ; Pure hypercholesterolemia E78.00 ; Lymphocytosis D72.820 ; Vitamin D deficiency E55.9 and Iron deficiency anemia, unspecified iron deficiency anemia type D50.9 Christian Lewis MD [address] [place] [address] [id number] 01/19/2025 Christian Lewis Encounter for administration of vaccine Z23 Christian Lewis MD [address] [place] [address] [id number] 06/04/2024 Christian Lewis Aortic stenosis, mod erate I35.0 ; Acquired hypothyroidism E03.9 ; Essential hypertension I10 ; Thrombocytopenia D69.6 and Iron deficiency anemia, unspecified iron deficiency anemia type D50.9 Christian Lewis MD [address] [place] [address] [id number] 06/30/2024 Christian Lewis Gastrointestinal hemorrhage associated with duodenitis K29.81 ; Tubular adenoma D36.9 and Severe aortic stenosis I35.0 Christian Lewis MD [address] [place] [address] [id number] 12/04/2024 Christian Lewis Essential hypertensi on I10 [...] cancer screening Z12.11 and Depression screening Z13.31 Christian Lewis MD [address] [place] [address] [id number] 01/01/2025 Christian Lewis Essential hypertensi on I10 and Localized swelling, mass and lump, head R22.0 Christian Lewis MD [address] [place] [address] [id number] 02/02/2025 Christian Lewis Eczema L30.9 Christian Lewis MD [address] [place] [address] [id number] 03/05/2025 Christian Lewis Essential hypertensi on I10 and Rash R21 Christian Lewis MD [address] [place] [address] [id number] 06/25/2024 Christian Lewis MD [address] [place] [address] [id number] 08/03/2024 Christian Lewis MD [address] [place] [address] [id number] 10/05/2024 Christian Lewis MD [address] [place], [place] [id number] 02/25/2025 Christian Lewis Essential hypertensi on I10 Assessments Encounter Date Diagnosis (ICD Code) Assessment Notes Treatment Notes Treatment Clinical Notes Section Notes 05/28/2024 Iron deficiency (ICD -10 - E61.1) 05/28/2024 Thrombocytopenia (ICD-10 - D69.6) 07/17/2024 Gastrointestinal hemorrhage associated with duodenitis (ICD-10 - K29.81) 07/24/2024 Hematuria, unspecifi ed type (ICD-10 - R31.9) 11/27/[address] ine general physical examination (ICD-10 - Z00.00) 01/19/2025 Encounter for administration of vaccine (ICD-10 - Z23) 06/04/2024 Aortic stenosis, moderate (ICD-10 - I35.0) [...] D36.9) to follow up with dr cheema 12/04/2024 Essential hypertensi on (ICD-10 - I10) restart bp med, will continue to monitor 12/04/2024 Annual physical exam (ICD-10 - Z00.00) labs reviewed and discussed with patient 01/01/2025 Essential hypertensi on (ICD-10 - I10) stable, will continue current regiment 01/01/2025 Localized swelling, mass and lump, head (ICD-10 - R22.0) discussed findings of recent CT scan with patient, will try to get to ent. may have to wait for the new ent here 02/02/2025 Eczema (ICD-10 - L30.9) diogo ent vrbalized understanding of medication and directions for use 03/05/2025 Essential hypertensi on (ICD-10 - I10) doing well on meds 03/05/2025 Rash (ICD-10 - R21) has reso lved completely on prednisone after 3 days 02/25/2025 Essential hypertensi on (ICD-10 - I10) 05/28/2024 Acquired hypothyroid ism (ICD-10 - E03.9) 11/27/2024 Essential hypertensi on (ICD-10 - I10) 06/04/2024 Essential hypertensi on (ICD-10 - I10) stable, will continue current regiment 06/30/2024 Severe aortic stenos is (ICD-10 - I35.0) to see cardiology next week 12/04/2024 Neutropenia, unspecified type (ICD-10 - D70.9) stable, will contiue to monitor 11/27/2024 Prediabetes (ICD-10 - R73.09) 06/04/2024 Thrombocytopenia (ICD-10 - D69.6) stable, will continue to monitor 12/04/2024 Aortic valve replace d (ICD-10 - Z95.2) doing well 11/27/2024 Acquired hypothyroid ism (ICD-10 - E03.9) 06/04/2024 Iron deficiency anem ia, unspecified iron deficiency anemia type (ICD-10 - D50.9) stable, will continue to monitor 12/04/2024 Lymphoma (ICD-10 - C85.90) followed by dr olivares and has not been treated yet 11/27/2024 Pure hypercholesterolemia (ICD-10 - E78.00) 12/04/2024 Vitamin D deficiency (ICD-10 - E55.9) double vit d, will continue to monitor 11/27/2024 Lymphocytosis (ICD-1 0 - D72.820) 12/04/2024 Acquired hypothyroid ism (ICD-10 - E03.9) stable, will continue current regiment 11/27/2024 Vitamin D deficiency (ICD-10 - E55.9) 12/04/2024 Prediabetes (ICD-10 - R73.09) stable, no need for medication at this time 11/27/2024 Iron deficiency anem ia, unspecified iron deficiency anemia type (ICD-10 - D50.9) 12/04/2024 Pure hypercholesterolemia (ICD-10 - E78.00) stable, [...] 4 Next Appt Details Provider Name:Christian taylor, 06/03/2025 07:30:00 AM, [address] [place] [address], [address] [place] [address], [phone], Provider Name:Christian taylor, 06/11/2025 09:00:00 AM, [address] [place] [address], Suite [facility], [place], [place], [phone], Provider Name:Christian taylor, 11/29/2025 07:45:00 AM, [address] [place] [address], Suite [facility], [place], [place], [phone], Provider Name:Christian taylor, 12/07/2025 08:30:00 AM, [address], [address], [place], [phone], Insurance Providers Payer Name Payer Address Payer Phone Subscriber Number Group Number Insured Name Patient Relationship to Insured Coverage Start Date Coverage End Date [employer] PLAN [address] [facility] [facility] MARIA A DIA [phone] [id number] Mary Lou Celestin Self - patient is [...]
== END 2025-03-08 15:23 | disposition home or self-care (01) ==
LOC: HO.HCS 14:49
PROVIDERS: PCP Internal Medicine; Visit Provider Internal Medicine
DX: Z95.2 Presence of prosthetic heart valve (principal); I25.10 Atherosclerotic heart disease of native coronary artery without angina pectoris
CPT/HCPCS: 99214; G2211